=== PATIENT | female | born 1935 | race Caucasian/White ===

== ENCOUNTER 2020-03-28 12:22 | Outpatient (REF) | payer MEDICARE, OTHER, SELFPAY | END 2020-03-28 12:23 | disposition home or self-care (01) | LOC: HO.LNP 12:22 | PROVIDERS: Visit Provider Ophthalmology | DX: H10.022 Other mucopurulent conjunctivitis, left eye (principal) | CPT/HCPCS: 87071; 87205 ==

== ENCOUNTER 2020-07-09 15:05 | Outpatient (REF) | payer SELFPAY | END 2020-07-09 15:06 | disposition home or self-care (01) | LOC: HO.HAP 15:05 | PROVIDERS: Visit Provider Internal Medicine | DX: Z13.89 Encounter for screening for other disorder (principal) ==

== ENCOUNTER 2020-07-24 13:06 | Outpatient (REF) | payer SELFPAY | END 2020-07-24 13:07 | disposition home or self-care (01) | LOC: HO.HAP 13:06 | PROVIDERS: Visit Provider Nurse Practitioner Family | DX: Z13.89 Encounter for screening for other disorder (principal) ==

== ENCOUNTER 2020-11-06 11:36 | Outpatient (REF) | payer MEDICARE, OTHER, SELFPAY ==
--- NOTE | 2020-11-14 08:50 | MHC.AU.AHA ---
Adult Audiological Evaluation Date of Visit: 11/06/20 [employer] Worker Used: Not Applicable Reason for Appointment: Audiologic re-evaluation due to increased difficulties hearing and understanding speech. Overall there are no medical changes reported. There is a history of fluctuating middle ear dysfunction which may influence sound quality. Previous Hearing Test Results: 06/19/2019 [facility] Borderline normal hearing thresholds at 250 Hz dropping to a severe high frequency sensorineural hearing loss bilaterally Medical History: Medical History: High Blood Pressure, High Cholesterol Medication List: Gabapentin, Omeprazole, Atorvastatin, Aspirin, Lamotrigine, Amlodipine, Calcium, Vitamin D, PreserVision Hearing Instrument History- Right Ear: Physical Testing Supervisor: Learning Hyperdrive Model: 3 Series i70 canal Serial Number: [id number] Battery Size: 312 Repair Warranty: 06/26/2015 Loss and Damage Warranty: L+D used Dispensed By: [facility] Date of Fittin06/05/2013 Hearing Instrument History- Left Ear: Physical Testing Supervisor: Learning Hyperdrive Model: Rosy i1600 ITC Serial Number: [id number] Battery Size: 312 Warranty: 08/11/2022 Loss and Damage Warranty: 08/11/2022 Dispensed By: [facility] Date of Fittin07/14/2019 Otoscopy: Right Ear: Small amount of non-occluding cerumen Left Ear: Unremarkable Tympanometry: Tympanometry performed due to: History of middle ear dysfunction Right Ear: Non-compliant Middle Ear System (Type B) Left Ear: Non-compliant Middle Ear System (Type B) Hearing Evaluation: Transducer(s) Used: Insert Earphones Method: Conventional Audiometry Stimuli Used: Pure Tones Right Ear: Description of Hearing: Borderline normal threshold at 250 Hz dropping to a profound high frequency sensorineural hearing loss Left Ear: Description of Hearing: Borderline normal threshold at 250 Hz dropping to a profound high frequency sensorineural hearing loss Speech Recognition Threshold (SRT): Method Used: Monitored Live Voice Stimuli Used: Spondee Words Right Ear: 45 dB HL Left Ear: 40 dB HL Word Discrimination: Method: Recorded Lists Word Lists Used: NU-6 Right Ear: 80% at 85 dB HL Left Ear: 80% at 80 dB HL Comparison: Compared to most recent evaluation: Thresholds at 500-4000 Hz have decreased 5-10 dB for both ears Interpretation of Results: Elvia is likely noticing a change in her hearing ability due to the mild decrease in hearing levels for both ears and the middle ear dysfunction Recommendations: Audiological re-evaluation in one year. Will send a reminder card Hearing aid maintenance performed today. Hearing aid(s) reprogrammed with updated test results. Diagnosis: Primary Diagnosis: H90.3 Bilateral Sensorineural Hearing Loss Services Performed: Comprehensive Audiological Evaluation (CPT 75327) Tympanometry (CPT 81006) Signature: Provider: Zaheer Mercado, RAMONA-A
== END 2020-11-06 11:37 | disposition home or self-care (01) ==
LOC: HO.SH 11:36
PROVIDERS: Visit Provider Nurse Practitioner Family
DX: H91.93 Unspecified hearing loss, bilateral (principal)
CPT/HCPCS: 92557; 92567

== ENCOUNTER 2021-02-21 08:57 | Outpatient (REF) | payer SELFPAY | END 2021-02-21 08:58 | disposition home or self-care (01) | LOC: HO.HAP 08:57 | PROVIDERS: Visit Provider Internal Medicine | DX: Z13.89 Encounter for screening for other disorder (principal) ==

== ENCOUNTER 2021-03-04 13:35 | Outpatient (REF) | payer SELFPAY | END 2021-03-04 13:36 | disposition home or self-care (01) | LOC: HO.HAP 13:35 | PROVIDERS: Visit Provider Internal Medicine | DX: Z13.89 Encounter for screening for other disorder (principal) ==

== ENCOUNTER 2021-10-10 14:47 | Outpatient (REF) | payer SELFPAY | END 2021-10-10 14:48 | disposition home or self-care (01) | LOC: HO.HAP 14:47 | PROVIDERS: Visit Provider Internal Medicine | DX: Z46.1 Encounter for fitting and adjustment of hearing aid (principal); H90.3 Sensorineural hearing loss, bilateral | CPT/HCPCS: 99499 ==

== ENCOUNTER 2021-10-28 09:55 | Outpatient (REF) | payer SELFPAY | END 2021-10-28 09:56 | disposition home or self-care (01) | LOC: HO.HAP 09:55 | PROVIDERS: Visit Provider Internal Medicine | DX: Z13.89 Encounter for screening for other disorder (principal) ==

== ENCOUNTER 2021-11-26 10:12 | Outpatient (REF) | payer MEDICARE, OTHER, SELFPAY ==
--- NOTE | 2021-11-28 08:04 | MHC.AU.AHA ---
Adult Audiological Evaluation Date of Visit: 11/19/21 Reason for Appointment: Long-standing history of hearing loss. Patient arrives today to determine if there has been a change in her hearing. Medical History: Medical History: High Blood Pressure, High Cholesterol Hearing Instrument History- Right Ear: Electric Pile Driver Operator: Team Apart Model: 3 Series i70 canal Serial Number: [id number] Battery Size: 312 Repair Warranty: 06/26/2015 Loss and Damage Warranty: L+D used Dispensed By: [facility] Date of Fittin06/05/2013 Hearing Instrument History- Left Ear: Electric Pile Driver Operator: Team Apart Model: Rosy i1600 ITC Serial Number: [id number] Battery Size: 312 Warranty: 08/11/2022 Loss and Damage Warranty: 08/11/2022 Dispensed By: [facility] Date of Fittin07/14/2019 Otoscopy: Right Ear: Unremarkable Left Ear: Unremarkable Tympanometry: Tympanometry performed due to: Right Ear: Reduced Middle Ear Compliance (Type As) Left Ear: Reduced Middle Ear Compliance (Type As) Hearing Evaluation: Transducer(s) Used: Insert Earphones Method: Conventional Audiometry Stimuli Used: Pure Tones Right Ear: Description of Hearing: Mild to severe/profound sensorineural hearing loss Left Ear: Description of Hearing: Mild to severe/profound sensorineural hearing loss Speech Recognition Threshold (SRT): Method Used: Recorded Lists Stimuli Used: Spondee Words Right Ear: 55 dBHL Left Ear: 50 dBHL Word Discrimination: Method: Recorded Lists Word Lists Used: W-22 Right Ear: 64% at 80 dBHL Left Ear: 68% at 80 dBHL Most Comfortable Level (MCL): Right Ear: 80 dBHL Left Ear: 80 dBHL Aided Testing: Aided word discrimination in quiet: 96% at 50 dBHL Aided word discrimination in noise: 88% at 50 dBHL Comparison: Compared to the most recent evaluation: Hearing is stable. Recommendations: Audiological re-evaluation in one year. No hearing aid programming changes made today, as hearing is stable and patient is comfortable with how they currently sound. Diagnosis: Primary Diagnosis: H93.293 Abnormal Auditory Perception Signature: Provider: Zaheer Maurer, CCC-A
== END 2021-11-26 10:13 | disposition home or self-care (01) ==
LOC: HO.SH 10:12
PROVIDERS: Visit Provider Internal Medicine
DX: Z01.118 Encounter for examination of ears and hearing with other abnormal findings (principal); H90.3 Sensorineural hearing loss, bilateral
CPT/HCPCS: 92557; 92567

== ENCOUNTER 2023-08-12 08:25 | Outpatient (REF) | payer MEDICARE, OTHER, SELFPAY | END 2023-08-12 08:26 | disposition home or self-care (01) | LOC: HO.SH 08:25 | PROVIDERS: PCP Internal Medicine; Visit Provider Internal Medicine | DX: Z01.10 Encounter for examination of ears and hearing without abnormal findings (principal); H90.3 Sensorineural hearing loss, bilateral | CPT/HCPCS: 92552; 92556 ==

== ENCOUNTER 2023-12-27 06:36 | Inpatient (IN) | payer MEDICARE, OTHER, SELFPAY ==
[2023-12-27] VITALS (17 sets, daily range): BP systolic 98–153; BP diastolic 47–83; PULSE 72–125; RESP 14–36; TEMP 36.2–38; O2SAT 60–98; BMI 31.8; BMI 32.3
--- NOTE | ~2023-12-27 | XR_ITS ---
EXAMINATION: XR CHEST CLINICAL INFORMATION: Shortness of breath COMPARISON: None available. TECHNIQUE: Frontal view of the chest was obtained. FINDINGS: There is mild cardiac. There is mild pulmonary vascular congestion. There is increased interstitial markings more prominent at the lung bases. Small pleural effusions are seen. Right basilar atelectasis is present. More confluent density seen in the retrocardiac region which may be secondary to infiltrate/atelectasis plus pleural fluid. Degenerative changes are noted in the spine. A suture anchors present in the left humeral head. XR/XR chest 1V IMPRESSION: Cardiomegaly with pulmonary vascular congestion and small pleural effusions. Findings are suggestive of CHF.
--- NOTE | ~2023-12-27 | CT_ITS ---
EXAMINATION: CT ANGIOGRAM OF THE CHEST WITH AND WITHOUT CONTRAST (CT PULMONARY ANGIOGRAM FOR PE) CLINICAL INFORMATION: Reason for Exam chest pain, hypoxia, positive d-dimer COMPARISON: None available. TECHNIQUE: Prior to contrast administration, noncontrast localization images were obtained. Subsequently, multidetector volumetric imaging was performed from the thoracic inlet to below the diaphragms following the administration of 65 mL Omnipaque 350 intravenous contrast. No contrast reaction reported Sagittal, coronal, and MIP oblique sagittal reformatted images were obtained on the CT workstation, uploaded to PACS, and reviewed. This CT examination was performed using dose optimization techniques as appropriate, variously including the following: *Automated exposure control *Adjustment of mA and/or kV according to patient size (this includes techniques or standardized protocols for targeted exams where dose is matched to indication/reason for exam; i.e. extremities or head) *Use of iterative reconstruction technique DLP: 461.25 mGy-cm FINDINGS: PULMONARY ARTERIES: The main pulmonary arteries, lobar and segmental arterial branches show adequate enhancement without filling defects. Main pulmonary trunk measures 315 Hounsfield units in mean attenuation. There is marked dilatation of the main pulmonary trunk, measuring 3.3 cm in transverse diameter, compatible with pulmonary arterial hypertension. LUNGS: Scattered extensive groundglass opacities are seen in bilateral lungs. There is almost complete consolidation of bilateral lower lobes with air bronchograms. PLEURA: Bilateral moderate pleural effusions are present. No pneumothorax is seen. PERICARDIUM: No pericardial effusion is seen. MEDIASTINUM AND KUN: No abnormally enlarged mediastinal or hilar lymph nodes are seen. TRACHEOBRONCHIAL TREE: Trachea and bilateral mainstem bronchi are patent. THORACIC AORTA: The thoracic aorta is normal in size with scattered atherosclerotic calcifications and smoothly patent. CORONARY ARTERY CALCIFICATIONS: Present CHEST WALL AND LOWER NECK: The subcutaneous and muscular chest wall are intact with no focal lesion. No abnormal mass lesion could be seen in the visualized lower neck. BONES: No fracture or dislocation. No focal bone lesion diagnostic of metastatic disease could be seen in the thorax. VISUALIZED UPPER ABDOMEN: Bilateral adrenal glands are not enlarged. Surgical clips are seen in the gallbladder fossa. Atherosclerotic calcifications are seen in proximal bilateral renal arteries, causing significant stenosis at the origin of left renal artery. CT/CT angio chest PE protocol IMPRESSION: 1. No evidence of pulmonary embolism. 2. Marked dilatation of the main pulmonary trunk, compatible with pulmonary arterial hypertension. 3. Scattered extensive groundglass opacities in bilateral lungs, compatible with interstitial pulmonary edema due to congestive heart failure. 4. Almost complete consolidation of bilateral lower lobes with air bronchograms and Bilateral moderate pleural effusions, compatible with pneumonia. 5. Status post cholecystectomy. 6. Atherosclerotic calcifications in proximal bilateral renal arteries, causing significant stenosis at the origin of left renal artery. Fleischner guidelines were followed. VTE: negative
--- OUTSIDE RECORDS SUMMARY | 2023-12-27 06:44 | XMS_ITS | Continuity of Care Document ---
Author Organization [facility] Address [address] [place] [address]- Care Team Providers Care Data Steward Name Role Phone Janna Sibley MD Primary Care Physician [place] [facility] [place] 10/26/[address] [address]- Encounter Diagnosis Bruising(Discharge Diagnosis) - 10/19/23 Hypertension(Discharge Diagnosis) - 10/19/23 Hypercholesterolemia(Discharge Diagnosis) - 10/19/23 MCI (mild cognitive impairment)(Discharge Diagnosis) - 10/19/23 Asthma(Discharge Diagnosis) - 10/19/23 Attending Physician: Janna Sibley MD Allergies, Adverse Reactions, Alerts Substance Reaction Severity Status imipramine Active hydrOXYzine Itching Active Immunizations Given and Recorded Vaccine Date Status Refusal Reason influenza virus vaccine, inactivated 03/12/22 Marty rded influenza virus vaccine, inactivated 03/28/21 Marty rded influenza virus vaccine, inactivated 02/20/20 Marty rded influenza virus vaccine, inactivated 05/02/19 Marty rded influenza virus vaccine, inactivated 1 04/07/18 Gi henri influenza virus vaccine, inactivated 2 04/01/17 Gi henri influenza virus vaccine, inactivated 3 05/15/16 Gi henri influenza virus vaccine, inactivated 4 06/04/15 Re corded influenza virus vaccine, inactivated 05/23/15 Marty rded influenza virus vaccine, inactivated 04/02/14 Marty rded influenza virus vaccine, inactivated 03/14/13 Give n influenza virus vaccine, inactivated 05/04/12 Marty rded influenza virus vaccine, inactivated 04/03/11 Marty rded influenza virus vaccine, inactivated 05/02/10 Give n influenza virus vaccine, inactivated 5 04/26/09 Gi henri [id number] 12y+ bivalent booster vax 03/12/22 Recorded SARS-CoV-2 mRNA ([id number]) vax 10/17/21 Recorded SARS-CoV-2 (COVID-19) mRNA BNT-162b2 vac 03/28/21 Recorded SARS-CoV-2 (COVID-19) mRNA BNT-162b2 vac 08/15/20 Given pneumococcal 23-valent vaccine 09/24/16 Given pneumococcal 23-valent vaccine 6 10/24/04 Given pneumococcal 13-valent vaccine 07/10/15 Given Zoster Vaccine Live 7 09/13/08 Given diphtheria-tetanus toxoids (DT) 10/29/03 Given 1Admin Note: [facility] high dose 2Admin Note: [facility] [place] 3Admin Note: Joseph Rivera [facility] pallavi mt 4Result Comment: [07/10/2015] joseph rivera 5Admin Note: Pallavi 6Admin Note: Pallavi 7Admin Note: diluent lot [id number] Exp 08/28 Medications Aerochamber See Instructions, # 1 each, Refills 1, Tot. Refills 1, Maintenance, Urgent Use with metered dose inhaler., 10/13/23 13:22:00 EDT, Supply, 160, cm, 10/13/23 12:55:00 EDT, Height, 75.9, kg, 06/15/23 11:38:00 EST, Dry Weight Start Date: 10/13/23 Status: Ordered albuterol CFC free 90 mcg/inh inhalation aerosol 2, puffs, Inhalation, 4 times a day, PRN, Urgent use with spacer chamber, # 18 Gm, Refills 3, Tot. Refills 3, Maintenance, 10/13/23 13:21:00 EDT, Aerosol, Route to Pharmacy Electronically, [id number], [facility]... Start Date: 10/13/23 Stop Date: 10/07/24 Status: Ordered amLODIPine 10 mg oral tablet 1 tablet, By Mouth, Daily, # 90 tablet, 3 Refills, Maintenance, 11/17/22 12:13:00 EDT, [facility], 159, cm, 11/03/22 13:00:00 EDT, Height, 81, kg, 12/10/21 9:01:00 EDT, Dry Weight Start Date: 11/17/22 Status: Ordered atorvastatin 40 mg oral tablet 1 tablet = 40 mg, By Mouth, Daily, # 90 tablet, 3 Refills, Maintenance, 01/15/22 16:23:00 EDT, Tablet, [facility], Partial fill upon patient request if the prescription is for a schedule II opioid drug., 159, cm, 12/10/21 9:01:00 ED... Start Date: 01/15/22 Stop Date: 01/10/23 Status: Ordered calcium and vitamin D combination 315 mg-200 iu oral tablet 1 tablet, By Mouth, 2 times a day, # 120 tablet, 0 Refills, Maintenance, 04/15/20 10:06:00 EDT, Tablet Start Date: 04/15/20 Status: Ordered chlorthalidone 25 mg oral tablet 12.5 mg, 0.5, tablet, By Mouth, Daily, # 45 tablet, Refills 3, Tot. Refills 3, Maintenance, 12/25/22 12:50:00 EDT, Route to Pharmacy Electronically, [facility], Partial fill upon patient request if the prescription is for a schedule... Start Date: 12/25/22 Stop Date: 12/20/23 Status: Ordered CPAP Equipment Maintenance, 04/15/20 10:10:00 EDT, Supply Start Date: 04/15/20 Status: Ordered fluticasone-salmeterol 250 mcg-50 mcg inhalation powder 1, puffs, Inhalation, 2 times a day, Urgent rinse mouth and throat after use, # 3 each, Refills 3, Tot. Refills 3, Maintenance, 10/13/23 13:21:00 EDT, Powder, Route to Pharmacy Electronically, [id number], [facility]... Start Date: 10/13/23 Stop Date: 10/07/24 Status: Ordered gabapentin 300 mg oral capsule 300 mg, 1, capsule, By Mouth, 3 times a day, # 270 capsule, Refills 3, Tot. Refills 3, Maintenance,09/17/23 11:11:00 EDT, Route to Pharmacy Electronically, [facility], Partial fill upon patient request if the prescription is for a... Start Date: 09/17/23 Status: Ordered Gemtesa 75 mg oral tablet 1 tablet = 75 mg, By Mouth, Daily, 0 Refills, Maintenance, 08/25/23 15:13:00 EST, Partial fill uponpatient request if the prescription is for a schedule II opioid drug. Start Date: 08/25/23 Status: Ordered Home Blood Pressure Monitor See Instructions, # 1 each, Refills 0, Tot. Refills 0, Maintenance, Please take blood pressure and heart rate at least once daily. ICD-10 Code: I10 (HTN), 01/20/23 10:01:00 EDT, Supply Start Date: 01/20/23 Status: Ordered lamotrigine 100 mg oral tablet 1, tablet, By Mouth, 2 times a day, # 180 tablet, Refills 2, Tot. Refills 2, Maintenance, 02/12/23 13:08:00 EDT, Route to Pharmacy Electronically, [facility], 159, cm, 01/20/23 8:23:00 EDT, Height, 81, kg, 12/10/21 9:01:00 EDT, Dry... Start Date: 02/12/23 Status: Ordered lamotrigine 25 mg oral tablet 50 mg, 2, tablet, By Mouth, 2 times a day, dose increase, # 360 tablet, Refills 2, Tot. Refills 2, Maintenance, 02/12/23 13:09:00 EDT, Route to Pharmacy Electronically, [facility],Partial fill upon patient request if the prescripti... Start Date: 02/12/23 Status: Ordered lisinopril 10 mg oral tablet See Instructions, TAKE 1 TABLET DAILY, # 30 tablet, Refills 11, Maintenance, 05/17/23 8:21:00 EST, Instructions Replace Required Details, Route to Pharmacy Electronically, [facility], 159, cm, 03/11/23 9:45:00 EDT, Height, 81, kg, 0... Start Date: 05/17/23 Status: Ordered Nitrostat 0.3 mg sublingual tablet 1 tablet = 0.3 mg, Sublingual, Every 5 minutes, PRN as needed for chest pain, not to exceed 3 doses/15 min--if pain persists, seek medical attention, # 25 tablet, 0 Refills, Maintenance, 06/16/23 10:10:00 EST, Tablet, [id number], Part... Start Date: 06/16/23 Status: Ordered omeprazole 20 mg oral delayed release tablet 1 tablet = 20 mg, By Mouth, 2 times a day, # 180 tablet, 1 Refills, Maintenance, 07/20/23 13:18:00 EST, EC Tablet, [facility], Partial fill upon patient request if the prescriptionis for a schedule II opioid drug., 160, cm, ... Start Date: 07/20/23 Stop Date: 01/16/24 Status: Ordered PreserVision AREDS 2 oral capsule By Mouth, Daily, 0 Refills, Maintenance, 04/15/20 10:06:00 EDT Start Date: 04/15/20 Status: Ordered Problem List Condition Confirmation Course Effective Dates Status Health Status Informant Anxiety disorder Confirmed Active Bilateral hearing loss Confirmed 06/01/13 Active Macular degeneration of left eye Confirmed Active Other specified depressive episodes Confirmed Active Diastolic dysfunction Confirmed Active Fatigue Confirmed Active Fibromyalgia Confirmed Active Functional heart murmur Confirmed 04/24/19 Active Gastroesophageal reflux disease with hiatal hernia Confirmed Active H/O Malignant melanoma Confirmed 2013 Active Hypercholesterolemia Confirmed Active Hypertension Confirmed Active MCI (mild cognitive impairment) Confirmed Active Obese class I Confirmed Active Obstructive sleep apnea Confirmed Active Osteopenia Confirmed Active Chronic polyneuropathy Confirmed Active 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 Lumbar spinal stenosis Confirmed Active Urge urinary incontinence Confirmed Active Diagnosis Diagnosis Type Effective Dates Health Status Clinical Service Informant Bruising Discharge Diagnosis 10/19/23 Hypertension Discharge Diagnosis 10/19/23 Hypercholesterolemia Discharge Diagnosis 10/19/23 MCI (mild cognitive impairment) Discharge Diagnosis 10/19/23 Asthma Discharge Diagnosis 10/19/23 Vital Signs Most recent to oldest [Reference Range]: 1 Height 160 cm (10/19/23 1:46 PM) Weight 77 kg (10/19/23 1:46 PM) Oxygen Saturation [94-100 %] 97 % (10/19/23 1:46 PM) Pulse Rate [55-90 bpm] 88 bpm (10/19/23 1:46 PM) Body Mass Index [18.5-24.99 kg/m2] 30.08 kg/m2 *>HHI* (10/19/23 1:46 PM) Blood Pressure [90-138/55-84 mm Hg] 109/ 69mm Hg (10/19/23 1:46 PM) Respiratory Rate [16-30 br/min] 17 br/mi n (10/19/23 1:46 PM) Temperature [96.8-100.4 DegF] 97.7 DegF (10/19/23 1:46 PM) Mode of Delivery (Oxygen) Room air (10/19/23 1:46 PM) Blood pressure sites Arm, right (10/19/23 1:46 PM) Temperature Route Temporal (10/19/23 1:46 PM) Weight Obtained Via Standing scale (10/19/23 1:46 PM) Social History Social History Type Response Smoking Status Never smoker entered on: 05/23/14 Sex Female Note * Anastasiia Alberts: PERFORM, SIGN, VERIFY Event Display: Patient Education/Instruction Authored Date: [id number] [facility] *[facility] Clinical Summary Name MILLER MURPHY Age 88 Years 1935 PCP Janna Sibley MD PCP Visit Date 10/19/2023 13:38:00 Additional Instructions: Scheduled Appointments?? Future Appointments ?*[facility] ?[address],??[place],??[address] ?Phone:??[phone]?Fax:??-- ?Appt. Date:??12/01/2023?10:10 AM ?Scheduled Provider:??Janna Siblye MD ?*[facility] ?[address] ?[place],??[place],??[address] ?Phone:??[phone]?Fax:??-- ?Appt. Date:??12/10/2023?3:30 PM ?Scheduled Provider:??Connie LANDIN, Elizabeth Patton Follow-Up Instructions ?? Diagnosis Mild cognitive impairment of uncertain or unknown etiology; Other ill-defined heart diseases; Essential (primary) hypertension; Other injury of unspecified body region, initial encounter; Pure hypercholesterolemia, unspecified Medications: Please continue your medications until treatment is completed or stopped by your provider. Discuss any questions related to medications with your provider. Medications to Continue Taking That Have Changed These medications were not printed or sent to your pharmacy - Gabapentin (gabapentin 300 mg oral capsule) 1 capsule Oral 3 times a day. Refills: 3. Next Dose: Medications to Continue with No Changes These medications were not printed or sent to your pharmacy Albuterol (albuterol CFC free 90 mcg/inh inhalation aerosol) 2 puff(s) Inhalation 4 times a day as needed Wheezing/Shortness of Breath for 90 Days. Urgent use with spacer chamber. Refills: 3. Next Dose: Amlodipine (amLODIPine 10 mg oral tablet) 1 tab(s) Oral Daily. Refills: 3. Next Dose: Atorvastatin (atorvastatin 40 mg oral tablet) 1 tab(s) Oral Daily for 90 Days. Refills: 3. Next Dose: Calcium And Vitamin D Combination (calcium and vitamin D combination 315 mg-200 iu oral tablet) 1 tab(s) Oral twice a day. Next Dose: Chlorthalidone (chlorthalidone 25 mg oral tablet) 0.5 tab(s) Oral Daily for 90 Days. Refills: 3. Next Dose: Durable Medical Equipment (Aerochamber) Urgent Use with metered dose inhaler.. Refills: 1. Next Dose: Durable Medical Equipment (CPAP Equipment) Next Dose: Durable Medical Equipment (Home Blood Pressure Monitor) Please take blood pressure and heart rate at least once daily. ICD-10 Code: I10 (HTN). Refills: 0. Next Dose: Fluticasone-Salmeterol (fluticasone-salmeterol 250 mcg-50 mcg inhalation powder) 1 puff(s) Inhalation twice a day for 90 Days. Urgent rinse mouth and throat after use. Refills: 3. Next Dose: Lamotrigine (lamotrigine 100 mg oral tablet) 1 tab(s) Oral twice a day. Refills: 2. Next Dose: Lamotrigine (lamotrigine 25 mg oral tablet) 2 tab(s) Oral twice a day. dose increase. Refills: 2. Next Dose: Lisinopril (lisinopril 10 mg oral tablet) TAKE 1 TABLET DAILY. Refills: 11. Next Dose: Multivitamin With Minerals (PreserVision AREDS 2 oral capsule) Oral Daily. Next Dose: Nitroglycerin (Nitrostat 0.3 mg sublingual tablet) 1 tab(s) Sublingual every 5 minutes as needed asneeded for chest pain. not to exceed 3 doses/15 min--if pain persists, seek medical attention. Refills: 0. Next Dose: Omeprazole (omeprazole 20 mg oral delayed release tablet) 1 tab(s) Oral twice a day for 90 Days. Refills: 1. Next Dose: vibegron (Gemtesa 75 mg oral tablet) 1 tab(s) Oral Daily. Next Dose: No Longer Take the Following Medications Clobetasol Topical (clobetasol 0.05% topical ointment) 1 application Topically nightly for 3 monthsand then 1 - 3x per week for maintenance.. Refills: 1. Estradiol Topical (estradiol 0.1 mg/g vaginal cream) INSERT 1 GRAM VAGINALLY AT BEDTIME TWICE PER WEEK. Refills: 2. Allergy Info:?? hydrOXYzine; imipramine Medications Given This Visit Future Orders ?No future orders Future Orders ?CBC w/ Differential? Order Date:10/19/23?- Complete within?Hepatic Function Panel? Order Date:10/19/23?- Complete within?TSH with T4 Reflex (Adults Only)? Order Date:10/19/23?- Complete within?Basic Metabolic Panel? Order Date:10/19/23?- Complete within?Lipid Panel Non Fasting? Order Date:10/19/23?- Complete within?Complete Urinalysis? Order Date:10/19/23?- Complete within?INR? Order Date:10/19/23?- Complete within?PTT? Order Date:10/19/23?- Complete within? Vital Signs Height 160 cm Weight 77 kg BMI 30.08 kg/m2 Blood Pressure 109 mm Hg/69 mm Hg Temperature 97.7 DegF Pulse Rate 88 bpm Respiratory Rate 17 br/min 02 Sat Mode of Delivery 97 %/Room air You can now view a summary of your hospital visit from the comfort of your home through a free online portal called [employer]. [employer] is a website that allows you to securely view your medical information including discharge summary, medications and follow-up visits. ??You can alsosend a secure electronic message to your doctor???s office to request appointments, renew medications or just ask a question. You can enroll at [email or web address] or register during your next office visit. Disclaimer:?? The information provided is of a general nature and is intended to be used in conjunction with the recommendations and advice of your health care practitioner. ??Every effort has been made to ensure that the information provided is accurate and complete at the time it is provided to you however, as your needs change, or, as new ??information becomes available, different or additional instructions may be required. If you have questions, please consult with your primary care provider or pharmacist, as appropriate. ??This information is not intended to serve as substitution for assessment and evaluation by a qualified health care provider. If you do not have a primary care provider, you may find a [facility] provider by calling [facility] [employer] [facility] at [phone]. [facility], in keeping with [facility] guidance, no longer requires face masks for staff, patientsor visitors in most situations. Similar to time spent indoors at other locations, there is the chance that you were exposed to respiratory viruses during your time with us (such as flu or COVID-19).? If you develop symptoms concerning for a viral respiratory infection, please seek testing (and treatment if indicated) from your medical provider or home test kit. For information about the plan of care including goals and instructions for your diagnosis, please see the patient education orders section of this document. Patient Education Materials?? The content of this educational material or handout may have been modified, supplemented, or adapted from its original content and format to support your individualized medical care. Patient Care team information Care Team Personnel Name: Saadia Abdalla Position: [facility] Onco RN Member Role: Primary Care Nurse Name: Janna iSbley MD Position: [facility] Physician - Primary Care Member Role: PCP Address: Address: [address] [place] [id number] [place] Name: Aislinn Mccauley RN Position: [facility] RN Member Role: Primary Care Nurse Care Team Related Persons Name: AMIRA MURPHY Address: [address] [id number] Name: AMIRA MURPHY Address: [address] Address: [facility] Name: AMIRA MURPHY Address: [address] Name: TITO MURPHY Address: [address] [address] [place] Name: TITO MURPHY Address: [address] Name: TITO MURPHY Address: [address] [address]
--- OUTSIDE RECORDS SUMMARY | 2023-12-27 06:44 | XMS_ITS | Continuity of Care Document ---
Author Organization [facility] Address [address], [address] Floor, [address] [place] [address]- Care Team Providers Care American Sign Language Interpreter Name Role Phone Colt LANDIN, Jud Guzman Primary Care Physicia n [place] [facility] [place]/20 [facility] [address], [address]rd Floor, [address] [place] [address]- Attending Physician: Freddie Mcgrath Admitting Physician: AdmtrFreddie Referring Physician: AdmtrFreddie Allergies, Adverse Reactions, Alerts Substance Reaction Severity Status imipramine Active hydrOXYzine Itching Active Immunizations Given and Recorded Vaccine Date Status Refusal Reason influenza virus vaccine, inactivated 05/02/19 Marty rded influenza virus vaccine, inactivated 1 04/07/18 Gi henri influenza virus vaccine, inactivated 2 04/01/17 Gi henri influenza virus vaccine, inactivated 3 05/15/16 Gi henri influenza virus vaccine, inactivated 4 06/04/15 Re corded influenza virus vaccine, inactivated 03/14/13 Give n influenza virus vaccine, inactivated 05/02/10 Give n influenza virus vaccine, inactivated 5 04/26/09 Gi henri pneumococcal 23-valent vaccine 09/24/16 Given pneumococcal 23-valent vaccine 6 10/24/04 Given pneumococcal 13-valent vaccine 07/10/15 Given Zoster Vaccine Live 7 09/13/08 Given diphtheria-tetanus toxoids (DT) 10/29/03 Given 1Admin Note: [facility] 2Admin Note: Joseph Phelan MA 3Admin Note: Joseph [facility] 4Result Comment: [07/10/2015] joseph rivera 5Admin Note: T[place] 6Admin Note: Tapan 7Admin Note: diluent lot [id number] Exp 08/28 Medications amLODIPine 5 mg oral tablet 5 mg, 1, tablet, By Mouth, Daily, # 30 tablet, Refills 0, Maintenance, 04/15/20 10:05:00 EDT Start Date: 04/15/20 Status: Ordered aspirin 81 mg oral delayed release tablet 81 mg, 1, tablet, By Mouth, Daily, # 30 tablet, Refills 0, Maintenance, 04/15/20 10:03:00 EDT Start Date: 04/15/20 Status: Ordered atorvastatin 40 mg oral tablet 1 tablet = 40 mg, By Mouth, Daily, # 30 tablet, 0 Refills, Maintenance, 04/15/20 10:02:00 EDT, Tablet Start Date: 04/15/20 Status: Ordered calcium and vitamin D combination 315 mg-200 iu oral tablet 1 tablet, By Mouth, 2 times a day, # 120 tablet, 0 Refills, Maintenance, 04/15/20 10:06:00 EDT, Tablet Start Date: 04/15/20 Status: Ordered CPAP Equipment Maintenance, 04/15/20 10:10:00 EDT, Supply Start Date: 04/15/20 Status: Ordered gabapentin 300 mg oral capsule 300 mg, 1, capsule, By Mouth, 3 times a day, # 90 capsule, Refills 0, Maintenance, 04/15/20 10:05:00 EDT Start Date: 04/15/20 Status: Ordered gabapentin 300 mg oral capsule 300 mg, 1, capsule, By Mouth, 3 times a day, # 270 capsule, Refills 0, Tot. Refills 0, Maintenance,05/14/20 13:01:00 EST, Route to Pharmacy Electronically, [facility], Partial fill upon patient request, 160, cm, 04/15/20 9:50:00 ED... Start Date: 05/14/20 Status: Ordered lamotrigine 100 mg oral tablet 100 mg, 1, tablet, By Mouth, 2 times a day, Take with 25mg tablet for total 125mg twice daily, # 180 tablet, Refills 0, Tot. Refills 0, Maintenance, 05/14/20 13:01:00 EST, Route to Pharmacy Electronically, [facility], Partial fill u... Start Date: 05/14/20 Status: Ordered omeprazole 20 mg oral delayed release tablet 1 tablet = 20 mg, By Mouth, 2 times a day, # 60 tablet, 0 Refills, Maintenance, 04/15/20 10:05:00 EDT, EC Tablet Start Date: 04/15/20 Status: Ordered PreserVision AREDS 2 oral capsule By Mouth, Daily, 0 Refills, Maintenance, 04/15/20 10:06:00 EDT Start Date: 04/15/20 Status: Ordered Problem List Condition Effective Dates Status Health Status Inform ant Anxiety disorder(Confirmed) Active Bilateral hearing loss(Confirmed) 06/01/13 Active Macular degeneration of left eye(Confirmed) Active Fibromyalgia(Confirmed) Active Functional heart murmur(Confirmed) 04/24/19 Active Gastroesophageal reflux dise ase with hiatal hernia(Confirmed) Active Hypercholesterolemia(Confirmed) Active Hypertension(Confirmed) Active Malignant melanoma(Confirmed) Active MCI (mild cognitive impairment)(Confirmed) Active Obstructive sleep apnea(Confirmed) Active Osteopenia(Confirmed) Active Chronic polyneuropathy(Confirmed) Active Lumbar spinal stenosis(Confirmed) Active Subarachnoid hemorrhage foll owing injury without open intracranial wound AND with no loss of consciousness(Confirmed) Active Urge urinary incontinence(Confirmed) Active Social History Social History Type Response Smoking Status Never smoker entered on: 05/23/14 Sex Female
--- OUTSIDE RECORDS SUMMARY | 2023-12-27 06:44 | XMS_ITS | Continuity of Care Document ---
Author Organization [facility] Address [address] [place] [address]- Care Team Providers Care Coin Machine Service Repairer Name Role Phone Colt LANDIN, Jud Guzman Primary Care Physicia n [place] [facility] [place] 06/04/20 - 07/04/20 [facility] [address] [place] [id number] Attending Physician: Freddie Mcgrath Admitting Physician: Freddie Mcgrath Referring Physician: AdmtrFreddie Allergies, Adverse Reactions, Alerts [...] Joseph Phelan MA 3Admin Note: Joseph Rivera [facility] 4Result Comment: [07/10/2015] joseph rivera 5Admin Note: [...] Maintenance,05/14/20 13:01:00 EST, Route to Pharmacy Electronically, [facility], Partial fill upon patient request, 160, cm, 04/15/20 9:50:00 ED... Start Date: 05/14/20 Status: Ordered lamotrigine 100 mg oral tablet 100 mg, 1, tablet, By Mouth, 2 times a day, Take with 25mg tablet for total 125mg twice daily, # 180 tablet, Refills 0, Tot. Refills 0, Maintenance, 05/14/20 13:01:00 EST, Route to Pharmacy Electronically, [facility], Partial fill u... Start Date: [...]
--- OUTSIDE RECORDS SUMMARY | 2023-12-27 06:44 | XMS_ITS | Continuity of Care Document ---
Author Organization [facility] Address [address] [place] [address]- Care Team Providers Care Vision Specialist Name Role Phone Colt LANDIN, Jud Guzman Primary Care Physicia [place] [facility] [place] - 05/23/[place] [facility] [address] [address]- Attending Physician: AdmAjay [email or web address] Admitting Physician: Admtr, Ar8 Referring Physician: Admtr, Ar8 Allergies, Adverse Reactions, Alerts Substance Reaction Severity Status imipramine Active hydrOXYzine Itching Active Immunizations Given and Recorded Vaccine Date Status Refusal Reason influenza virus vaccine, inactivated 03/28/21 Marty rded [...] virus vaccine, inactivated 5 04/26/09 Gi henri SARS-CoV-2 (COVID-19) mRNA BNT-162b2 vac 03/28/21 Recorded pneumococcal 23-valent vaccine 09/24/16 Given pneumococcal 23-valent vaccine 6 10/24/04 Given pneumococcal 13-valent vaccine 07/10/15 Given Zoster Vaccine Live 7 09/13/08 Given diphtheria-tetanus toxoids (DT) 10/29/03 Given 1[facility] Note: [facility] 2Admin Note: Joseph Phelan MA 3Admin Note: Joseph Rivera [facility] pallavi ferrell 4Result Comment: [07/10/2015] zachcece rivera 5Admin Note: Pallavi 6Admin Note: Pallavi 7Admin Note: diluent lot [id number] Exp 08/28 Medications amLODIPine 10 mg oral tablet 1 tablet = 10 mg, By Mouth, Daily, # 90 tablet, 1 Refills, Maintenance, 03/26/21 10:14:00 EDT, Tablet, [facility], Partial fill upon patient request if the prescription is for a schedule II opioid drug., 159, cm, 03/26/21 9:50:00 ED... Start Date: 03/26/21 Status: Ordered aspirin 81 mg oral delayed [...] times a day, # 270 capsule, Refills 2, Tot. Refills 2, Maintenance,05/06/21 16:15:00 EST, Route to Pharmacy Electronically, [facility], Partial fill upon patient request, 159, cm, 04/21/21 16:52:00 E... Start Date: 05/06/21 Status: Ordered lamotrigine 100 mg oral tablet 1, tablet, By Mouth, 2 times a day, # 180 tablet, Refills 3, Tot. Refills 0, Maintenance, 09/20/20 21:10:00 EDT, Route to Pharmacy Electronically, [facility], 159, cm, 09/20/20 15:11:00 EDT, Height, 83, kg, 09/04/20 14:05:00 EDT, Start Date: 09/20/20 Status: Ordered lamotrigine 25 mg oral tablet 25 mg, 1, tablet, By Mouth, 2 times a day, # 180 tablet, Refills 3, Tot. Refills 3, Maintenance, 09/20/20 15:46:00 EDT, Route to Pharmacy Electronically, [facility], Partial fill upon patient request if the prescription is for a mariana... Start Date: 09/20/20 Status: Ordered omeprazole 20 mg oral delayed release tablet 1 tablet = 20 mg, By Mouth, 2 times a day, # 180 tablet, 0 Refills, Maintenance, 03/24/21 10:06:00 EDT, EC Tablet, [facility], Partial fill upon patient request if the prescriptionis for a schedule II opioid drug., 159, cm, ... Start Date: 03/24/21 Stop Date: 06/22/21 Status: Ordered PreserVision AREDS 2 oral capsule [...]
--- OUTSIDE RECORDS SUMMARY | 2023-12-27 06:44 | XMS_ITS | Continuity of Care Document ---
Author Organization [facility] Address [address], [address] Floor, [address] [place] [address]- Care Team Providers Care Cigar Bander Hand Name Role Phone Toñito COLE, [facility] Primary Care Physician [place] [facility] [place] 08/14/23 [facility] [address], [address], [address] [place] [address]- Allergies, Adverse Reactions, Alerts Substance Reaction Severity [...] virus vaccine, inactivated 5 04/26/09 Gi henri [id number] 12y+ bivalent booster vax 03/12/22 Recorded SARS-CoV-2 mRNA ([id number]) vax 10/17/21 Recorded SARS-CoV-2 (COVID-19) mRNA BNT-162b2 vac 03/28/21 Recorded SARS-CoV-2 (COVID-19) mRNA BNT-162b2 vac 08/15/20 Given pneumococcal 23-valent vaccine 09/24/16 Given pneumococcal 23-valent vaccine 6 10/24/04 Given pneumococcal 13-valent vaccine 07/10/15 Given Zoster Vaccine Live 7 09/13/08 Given diphtheria-tetanus toxoids (DT) 10/29/03 Given 1Admin Note: [facility] 2Admin Note: [facility] Pallavi [place] 3Admin Note: [facility] pallavi [place] 4Result Comment: [07/10/2015] chelo rivera 5Admin Note: Pallavi 6Admin Note: Pallavi 7Admin Note: diluent lot [id number] Exp 08/28 Medications amLODIPine 10 mg oral tablet 1 tablet, [...] Refills, Maintenance, 01/15/22 16:23:00 EDT, Tablet, [facility], Partial fill upon patient request [...] Date: 12/25/22 Stop Date: 12/20/23 Status: Ordered clobetasol 0.05% topical ointment See Instructions, 1 application Topically nightly for 3 months and then 1 - 3x per week for maintenance., # 30 Gm, 1 Refills, Maintenance, 08/27/21 9:36:00 EST, Ointment, [facility], Partial fill upon patient request if the prescrip... Start Date: 08/27/21 Status: Ordered CPAP Equipment Maintenance, 04/15/20 10:10:00 EDT, Supply Start Date: 04/15/20 Status: Ordered estradiol 0.1 mg/g vaginal cream See Instructions, INSERT 1 GRAM VAGINALLY AT BEDTIME TWICE PER WEEK, # 42.5 Gm, 2 Refills, Maintenance, 05/06/22 9:24:00 EST, [facility], 159, cm, 04/28/22 15:47:00 EST, Height, 81, kg, 12/10/21 9:01:00 EDT, Dry Weight Start Date: 05/06/22 Status: Ordered gabapentin 300 mg oral capsule 300 mg, 1, capsule, By Mouth, 3 times a day, # 270 capsule, Refills 3, Tot. Refills 3, Maintenance,11/17/22 8:37:00 EDT, Route to Pharmacy Electronically, [id number], Partial fill upon patient request if the prescription is for a mariana... Start Date: 11/17/22 Status: Ordered Home Blood Pressure Monitor See [...] 13:08:00 EDT, Route to Pharmacy Electronically, [facility], 159, cm, 01/20/23 8:23:00 EDT, [...] Required Details, Route to Pharmacy Electronically, [facility], 159, cm, 03/11/23 9:45:00 EDT, Height, 81, kg, 0... Start Date: 05/17/23 Status: Ordered Nitrostat 0.3 mg sublingual tablet 1 tablet = 0.3 mg, Sublingual, Every 5 minutes, PRN as needed for chest pain, not to exceed 3 doses/15 min--if pain persists, seek medical attention, # 25 tablet, 0 Refills, Maintenance, 06/16/23 10:10:00 EST, Tablet, [facility][id number], Part... Start Date: 06/16/23 Status: Ordered omeprazole 20 mg oral delayed release tablet 1 tablet = 20 mg, By Mouth, 2 times a day, # 180 tablet, 1 Refills, Maintenance, 07/20/23 13:18:00 EST, EC Tablet, [facility], Partial fill upon patient request [...] Confirmed Active Urge urinary incontinence Confirmed Active Social History Social History Type Response Smoking Status Never smoker entered on: 05/23/14 Sex Female Patient Care team information Care Team Personnel Name: Saadia Abdalla Position: [facility] Onco RN Member Role: Primary Care Nurse Name: Janna Sibley MD Position: [facility] Physician - Primary Care Member Role: PCP Address: Address: [address] [place] [address] [address] [place], [place] [address] Name: Aislinn Mccauley RN Position: [facility] RN Member Role: Primary Care Nurse Care Team Related Persons Name: AMIRA MURPHY Address: home [address] [place] [address] Name: AMIRA MURPHY Address: home [address] [place] [address] [place] Address: temporary 0 Name: AMIRA MURPHY Address: home [address] [facility] [address] Name: TITO MURPHY Address: home [address] [place] [address] [place] Name: TITO MURPHY Address: home [address] [place] [address] Name: TITO MURPHY Address: home [address] [place] [address]
--- OUTSIDE RECORDS SUMMARY | 2023-12-27 06:44 | XMS_ITS | Continuity of Care Document ---
Author Organization [facility] Address [address] [place] [address]- Care Team Providers Care Medicaid Business Analyst Name Role Phone Toñito COLE, [facility] Primary Care Physician En[place] [facility] [place](s): 10/01/22 - 10/31/22 [facility] [address] [place] [address]- Allergies, Adverse Reactions, Alerts Substance Reaction Severity [...] virus vaccine, inactivated 5 04/26/09 Gi henri [id number] 12y+ bivalent booster vax 03/12/22 Recorded SARS-CoV-2 mRNA ([id number]) vax 10/17/21 Recorded SARS-CoV-2 (COVID-19) mRNA BNT-162b2 vac 03/28/21 Recorded pneumococcal 23-valent vaccine 09/24/16 Given pneumococcal 23-valent vaccine 6 10/24/04 Given pneumococcal 13-valent vaccine 07/10/15 Given Zoster Vaccine Live 7 09/13/08 Given diphtheria-tetanus toxoids (DT) 10/29/03 Given 1Admin Note: [facility] 2Admin Note: Joseph RIVERA [facility] 3Admin Note: Joseph Rivera [facility] 4Result Comment: [07/10/2015] zachcece rivera 5Admin Note: Tapan 6Admin Note: [place] 7Admin Note: diluent lot [id number] Exp 08/28 Medications amLODIPine 10 mg oral tablet 10 mg, 1, tablet, By Mouth, Daily, # 90 tablet, Refills 1, Tot. Refills 1, Maintenance, 03/02/22 20:09:00 EDT, Route to Pharmacy Electronically, [facility], Partial fill upon patient request if the prescription is for a schedule II... Start Date: 03/02/22 Status: Ordered aspirin 81 mg oral delayed [...] tablet, Refills 3, Tot. Refills 3, Maintenance, 10/23/22 13:21:00 EDT, Route to Pharmacy Electronically, [id number], Partial fill upon patient request if the prescription is for a schedule I... Start Date: 10/23/22 Stop Date: 10/18/23 Status: Ordered clobetasol 0.05% topical ointment See [...] Maintenance,11/17/22 8:37:00 EDT, Route to Pharmacy Electronically, [id number], Partial fill upon patient request if the prescription is for a mariana... Start Date: 11/17/22 Status: Ordered gabapentin 300 mg oral capsule 300 mg, 1, capsule, By Mouth, 3 times a day, for 90 days, # 270 capsule, Refills 2, Tot. Refills 2,Hard Stop 11/17/22 8:37:00 EDT, 02/20/22 8:37:00 EDT, Route to Pharmacy Electronically, [facility], Partial fill upon patient reques... Start Date: 02/20/22 Stop Date: 11/17/22 Status: Ordered Gemtesa 75 mg oral tablet 1 tablet, By Mouth, Daily, # 30 tablet, 11 Refills, [facility], 159, cm, 12/10/21 9:01:00 EDT, Height, 81, kg, 12/10/21 9:01:00 EDT, Dry Weight Start Date: 02/05/22 Status: Ordered lamotrigine 100 mg oral tablet 1, tablet, By Mouth, 2 times a day, # 180 tablet, Refills 3, Tot. Refills 3, Maintenance, 11/17/22 8:37:00 EDT, Route to Pharmacy Electronically, [id number], 159, cm, 10/01/22 8:32:00 EDT, Height, 81, kg, 12/10/21 9:01:00 EDT, Dry Weight Start Date: 11/17/22 Status: Ordered lamotrigine 100 mg oral tablet 1, tablet, By Mouth, 2 times a day, for 90 days, # 180 tablet, Refills 2, Tot. Refills 2, Hard Stop11/17/22 8:37:00 EDT, 02/20/22 8:37:00 EDT, Route to Pharmacy Electronically, [facility], 159, cm, 02/12/22 13:41:00 EDT, Height, 81... Start Date: 02/20/22 Stop Date: 11/17/22 Status: Ordered lamotrigine 25 mg oral tablet 50 mg, 2, tablet, By Mouth, 2 times a day, dose increase, # 360 tablet, Refills 3, Tot. Refills 3, Maintenance, 11/17/22 8:38:00 EDT, Route to Pharmacy Electronically, [facility][id number], Partial fill upon patient request if the prescription... Start Date: 11/17/22 Status: Ordered lamotrigine 25 mg oral tablet 50 mg, 2, tablet, By Mouth, 2 times a day, for 90 days, dose increase, # 360 tablet, Refills 2, Tot. Refills 2, Hard Stop 11/17/22 8:38:00 EDT, 02/20/22 8:38:00 EDT, Route to Pharmacy Electronically[facility], Partial fill upon pa... Start Date: 02/20/22 Stop Date: 11/17/22 Status: Ordered Melatonin Daily at bedtime, 0 Refills, Maintenance, 08/05/22 11:55:00 EST, Partial fill upon patient request if the prescription is for a schedule II opioid drug. Start Date: 08/05/22 Status: Ordered omeprazole 20 mg oral delayed release tablet 1 tablet = 20 mg, By Mouth, 2 times a day, # 180 tablet, 1 Refills, Maintenance, 04/10/22 11:36:00 EDT, EC Tablet, [facility], Partial fill upon patient request if the prescriptionis for a schedule II opioid drug., 159, cm, ... 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 AND with no loss of consciousness Confirmed Active Urge urinary incontinence Confirmed Active Social History Social History Type Response Smoking Status Never smoker entered on: 05/23/14 Sex Female Patient Care team information Care Team Personnel Name: Saadia Abdalla Position: [facility] Onco RN Member Role: Primary Care Nurse Name: Janna Sibley MD Position: [facility] Primary Care Physician Member Role: PCP Address: Address: [address] [place] [address] [address] [place], [place] [address] Name: Nasrin Graf RN Position: [facility] Nurse Member Role: Primary Care Nurse Name: Aislinn Mccauley RN Position: [facility] RN Member Role: Primary Care Nurse Care Team Related Persons Name: AMIRA MURPHY Address: home [address] [place] [address] Address: temporary 0 Name: AMIRA MURPHY Address: home [address] [facility] [phone] Name: AMIRA MURPHY Address: [address] [address] Name: TITO MURPHY Address: [address] [address] Name: TITO MURPHY Address: [address] [address] Name: TITO MURPHY Address: [address] [address]
--- OUTSIDE RECORDS SUMMARY | 2023-12-27 06:44 | XMS_ITS | Continuity of Care Document ---
Author Organization [facility] Address Unknown Care Team Providers Care Center Director Name Role Phone Colt LANDIN, Jud Guzman Primary Care Physicia n Encounter [facility] Date(s): 05/05/21 - 06/04/21 [facility] Allergies, Adverse Reactions, Alerts Substance Reaction Severity [...] Note: Joseph Phelan MA 3Admin Note: Joseph Nicole [facility] pallavi ferrell 4Result Comment: [07/10/2015] joseph nicole 5Admin Note: Pallavi 6Admin Note: Pallavi 7Admin [...]
--- OUTSIDE RECORDS SUMMARY | 2023-12-27 06:44 | XMS_ITS | Continuity of Care Document ---
Author Organization [facility] Address [address] [place] [address]- Care Team Providers Care Tavern Car Attendant Name Role Phone Janna Sibley MD Primary Care Physician ( [phone] Encounter [facility] [place] Date(s): 05/25/23 - 06/24/23 [facility] [address] [place] [address]- Attending Physician: Freddie Mcgrath Admitting Physician: AdmFreddie smith Referring Physician: Admtr, Ar8 Allergies, Adverse Reactions, [...] virus vaccine, inactivated 5 04/26/09 Gi henri [id number] 12y+ bivalent booster vax 03/12/22 Recorded SARS-CoV-2 mRNA (ncqhbkb-vdjp-nekkl) vax 10/17/21 Recorded SARS-CoV-2 (COVID-19) mRNA BNT-162b2 vac 03/28/21 Recorded SARS-CoV-2 (COVID-19) mRNA BNT-162b2 vac 08/15/20 Given pneumococcal 23-valent vaccine 09/24/16 Given pneumococcal 23-valent vaccine 6 10/24/04 Given pneumococcal 13-valent vaccine 07/10/15 Given Zoster Vaccine Live 7 09/13/08 Given diphtheria-tetanus toxoids (DT) 10/29/03 Given 1Admin Note: [facility] 2Admin Note: Ajite ROMELIA Pallavi [place] 3Admin Note: Ajite Romelia [facility] pallavi [place] 4Result Comment: [07/10/2015] chelo rivera 5Admin Note: [...] Maintenance,11/17/22 8:37:00 EDT, Route to Pharmacy Electronically, [id number], Partial fill upon patient request if the [...] 13:08:00 EDT, Route to Pharmacy Electronically, [facility], 159, cm, 01/20/23 8:23:00 EDT, [...] 0 Refills, Maintenance, 06/16/23 10:10:00 EST, Tablet, [email or web address][id number], Part... Start Date: 06/16/23 Status: Ordered omeprazole 20 mg oral delayed release tablet 1 tablet = 20 mg, By Mouth, 2 times a day, # 180 tablet, 1 Refills, Maintenance, 12/25/22 15:11:00 EDT, EC Tablet, [facility], Partial fill upon patient request if the prescriptionis for a schedule II opioid drug., 159, cm, ... Start Date: 12/25/22 Stop Date: 06/23/23 Status: Ordered PreserVision AREDS 2 oral capsule [...] Care Team Personnel Name: Saadia Abdalla Position: [facility] Onco RN Member Role: Primary Care Nurse Name: Janna Sibley MD Position: [facility] Physician - Primary Care Member Role: PCP Address: Address: [address] [place] [address] [address] [place], [place] [address] Name: Aislinn Mccauley RN Position: [facility] RN Member Role: Primary Care Nurse Care Team Related Persons Name: AMIRA MURPHY Address: home [address] [place] [address] Name: AMIRA MURPHY Address: [address] [facility] [address] Name: AMIRA MURPHY Address: home [address] [place] [address] [place] Address: temporary 0 Name: TITO MURPHY Address: [address] [place] [address] [place] Name: TITO MURPHY Address: home [address] [place] [address] Name: TITO MURPHY Address: home [address] [place] [address]
--- OUTSIDE RECORDS SUMMARY | 2023-12-27 06:44 | XMS_ITS | Continuity of Care Document ---
Author Organization [facility] Address Unknown Care Team Providers Care Rehab Aid Name Role Phone Colt LANDIN, Jud Guzman Primary Care Physicia n [place] [facility] [place] 04/10/21 - 05/10/21 [facility] Attending Physician: Freddie Mcgrath Admitting Physician: Freddie [...] Joseph Phelan MA 3Admin Note: Joseph Rivera [facility] pallavi ferrell 4Result Comment: [07/10/2015] joseph rivera 5Admin Note: [...]
--- OUTSIDE RECORDS SUMMARY | 2023-12-27 06:44 | XMS_ITS | Continuity of Care Document ---
Author Organization [facility] Address [address] 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 [place]/22[place]21 - 03/22/22 [facility] [address], [address], [address] [place] [address]- Attending Physician: Joellen Perry NP Admitting Physician: Joellen Perry NP Allergies, Adverse Reactions, Alerts Substance Reaction Severity [...] Joseph Phelan MA 3Admin Note: Joseph Rivera [facility] pallavi ferrell 4Result Comment: [07/10/2015] joseph rivera 5Admin Note: Pallavi 6Admin Note: [place] 7Admin Note: diluent lot [id number] Exp 08/28 [...] Status: Ordered chlorthalidone 25 mg oral tablet half tablet, By Mouth, Daily, # 45 tablet, Refills 0, Tot. Refills 0, Maintenance, 12/18/21 13:33:00 EDT, Route to Pharmacy Electronically, [facility], Partial fill upon patient request if the prescription is for a schedule II opioi... Start Date: 12/18/21 Status: Ordered clobetasol 0.05% topical ointment See Instructions, 1 application Topically nightly for 3 months and then 1 - 3x per week for maintenance., # 30 Gm, 1 Refills, Maintenance, 08/27/21 9:36:00 EST, Ointment, [facility], Partial fill upon patient request if the prescrip... Start Date: 08/27/21 Status: Ordered CPAP Equipment Maintenance, 04/15/20 10:10:00 EDT, Supply Start Date: 04/15/20 Status: Ordered Estrace Vaginal Cream 0.1 mg/g See Instructions, 1 gram Vaginally at bedtime twice per week, # 42 Gm, 4 Refills, Maintenance, 08/27/21 9:35:00 EST, [facility], Partial fill upon patient request if the prescription is for a schedule II opioid drug., 159, cm, 030... Start Date: 08/27/21 Status: Ordered gabapentin 300 mg oral capsule 300 mg, 1, capsule, By Mouth, 3 times a day, # 270 capsule, Refills 2, Tot. Refills 2, Maintenance,05/06/21 16:15:00 EST, Route to Pharmacy Electronically, [facility], Partial fill upon patient request, 159, cm, 04/21/21 16:52:00 E... Start Date: 05/06/21 Status: Ordered gabapentin 300 mg oral capsule 300 mg, 1, capsule, By Mouth, 3 times a day, # 270 capsule, Refills 2, Tot. Refills 2, Maintenance,02/20/22 8:37:00 EDT, Route to Pharmacy Electronically, [facility], Partial fillupon patient request if the prescription is for a s... Start Date: 02/20/22 Stop Date: 11/17/22 Status: [...] tablet, Refills 2, Tot. Refills 2, Maintenance, 02/20/22 8:37:00 EDT, Route to Pharmacy Electronically, [facility], 159, cm, 02/12/22 13:41:00 EDT, Height, 81, kg, 12/10/21 9:01:00 EDT, Dry... Start Date: 02/20/22 Stop Date: 11/17/22 Status: Ordered lamotrigine 25 mg oral tablet 50 mg, 2, tablet, By Mouth, 2 times a day, dose increase, # 360 tablet, Refills 2, Tot. Refills 2, Maintenance, 02/20/22 8:38:00 EDT, Route to Pharmacy Electronically, [facility], Partial fill upon patient request if the prescriptio... Start Date: 02/20/22 Stop Date: 11/17/22 Status: Ordered omeprazole 20 mg oral delayed release tablet 1 tablet = 20 mg, By Mouth, 2 times a day, # 180 tablet, 0 Refills, Maintenance, 12/21/21 14:52:00 EDT, EC Tablet, [facility], Partial fill upon patient request if the prescriptionis for a schedule II opioid drug., 159, cm, ... Start Date: 12/21/21 Stop Date: 03/21/22 Status: Ordered PAXLOVID PAXLOVID, See Instructions, # 30 each, Refills 0, Tot. Refills 0, Maintenance, Nirmatrelvir 300 mg (2 pills of 150 mg) with ritonavir 100 mg ( 1 pill). 3 pills twice a day for 5 days for COVID 19 infection., 10/04/21 14:30:00 EDT, Supply, 159, cm, ... Start Date: 10/04/21 Status: Ordered PreserVision AREDS 2 oral capsule [...] 05/23/14 Sex Female Patient Care team information Personnel Name: Janna Sibley MD Address: Address: [address] [facility] 3rd Floor [place], [place] [address]
--- OUTSIDE RECORDS SUMMARY | 2023-12-27 06:44 | XMS_ITS | Continuity of Care Document ---
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 Role Phone Toñito COLE, [facility] Primary Care Physician ( [phone] Encounter [facility] [place] Date(s): 02/24/23 - 06/24/23 [facility] [address] [place] [address]- Attending Physician: Nadia Feldman MD Allergies, Adverse Reactions, Alerts Substance Reaction [...] virus vaccine, inactivated 5 04/26/09 Gi henri [id number] 12y+ bivalent booster vax 03/12/22 Recorded SARS-CoV-2 mRNA ([id number]) vax 10/17/21 Recorded SARS-CoV-2 (COVID-19) mRNA BNT-162b2 vac 03/28/21 Recorded SARS-CoV-2 (COVID-19) mRNA BNT-162b2 vac 08/15/20 Given pneumococcal 23-valent vaccine 09/24/16 Given pneumococcal 23-valent vaccine 6 10/24/04 Given pneumococcal 13-valent vaccine 07/10/15 Given Zoster Vaccine Live 7 09/13/08 Given diphtheria-tetanus toxoids (DT) 10/29/03 Given 1Admin Note: [facility] 2Admin Note: Joseph NICOLE Phelan [place] 3Admin Note: Joseph León [facility] pallavi id 4Result Comment: [07/10/2015] joseph nicole 5Admin Note: [...] Refills, Maintenance, 01/15/22 16:23:00 EDT, Tablet, [facility], Partial fill upon patient request [...] Maintenance,11/17/22 8:37:00 EDT, Route to Pharmacy Electronically, [id number], Partial fill upon patient request if the [...] 0 Refills, Maintenance, 06/16/23 10:10:00 EST, Tablet, [id number], Part... Start Date: 06/16/23 Status: Ordered omeprazole [...] Care Team Personnel Name: Saadia Abdalla Position: [facility] Onco RN Member Role: Primary Care Nurse Name: Janna Sibley MD Position: [facility] Physician - Primary Care Member Role: PCP Address: Address: [address] [place] [address] [address] [place], [place] [address] Name: Aislinn Mccauley RN Position: [facility] RN Member Role: Primary Care Nurse Care Team Related Persons Name: AMIRA MURPHY Address: home [address] [place] [address] Name: AMIRA MURPHY Address: home [address] [place], [place] Address: temporary 0 Name: AMIRA MURPHY Address: [address] [facility] [id number] Name: TITO MURPHY Address: home [address] [place] [address] [place] Name: TITO MURPHY Address: home [address] [place] [address] Name: TITO MURPHY Address: home [address] [place] [address]
--- OUTSIDE RECORDS SUMMARY | 2023-12-27 06:44 | XMS_ITS | Continuity of Care Document ---
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 Name Role Phone Colt LANDIN, Jud Guzman Primary Care Physicia n Encounter [facility] [place] Date(s): 03/26/21 - 04/02/21 [facility] [address] [place] [address]- Encounter Diagnosis Bruising(Discharge Diagnosis) - 03/26/21 Leg wound, right(Discharge Diagnosis) - 03/26/21 Postural dizziness with presyncope(Discharge Diagnosis) - 03/26/21 Hypertension(Discharge Diagnosis) - 03/26/21 Attending Physician: Guy Wolff MD Allergies, Adverse Reactions, Alerts Substance Reaction Severity Status imipramine Active hydrOXYzine Itching Active Immunizations Given and Recorded Vaccine Date Status Refusal Reason influenza virus vaccine, inactivated 02/20/20 Marty rded influenza virus vaccine, inactivated 05/02/19 Marty rded influenza virus vaccine, inactivated 1 04/07/18 Gi henri influenza virus vaccine, inactivated 2 04/01/17 Gi henri influenza virus vaccine, inactivated 3 05/15/16 Gi henri influenza virus vaccine, inactivated 4 06/04/15 Re corded influenza virus vaccine, inactivated 04/02/14 Marty rded [...] Joseph Phelan MA 3Admin Note: Joseph Rivera [facility] pallavi ferrell 4Result Comment: [07/10/2015] joseph rivera 5Admin Note: Pallavi 6Admin Note: Ru[place] 7Admin Note: diluent lot [id number] Exp 08/28 Medications amLODIPine 10 mg oral tablet 1 tablet = 10 mg, By Mouth, Daily, # 90 tablet, 1 Refills, Maintenance, 03/26/21 10:14:00 EDT, Tablet, [facility], Partial fill upon patient request if the prescription is for a schedule II opioid drug., 159ginette, 03/26/21 9:50:00 ED... Start Date: 03/26/21 Status: [...] times a day, # 270 capsule, Refills 1, Tot. Refills 1, Maintenance,09/11/20 10:23:00 EDT, Route to Pharmacy Electronically, [facility], Partial fill upon patient request, 159 cm, 09/04/20 14:05:00 E... Start Date: 09/11/20 Status: Ordered lamotrigine 100 mg oral tablet [...] of consciousness(Confirmed) Active Urge urinary incontinence(Confirmed) Active Diagnosis Diagnosis Type Effective Dates Health Status Clinical Service Informant Bruising Discharge Diagnosis 03/26/21 Leg wound, right Discharge Diagnosis 03/26/21 Postural dizziness with presyncope Discharge Diagnosis 03/26/21 Hypertension Discharge Diagnosis 03/26/21 Vital Signs Most recent to oldest [Reference Range]: 1 2 3 Height 159.0 cm (03/26/21 9:50 AM) 159.0 cm (03/26/21 9:19 AM) 159.0 cm (03/26/21 9:10 AM) Weight 86.9 kg (03/26/21 9:10 AM) Oxygen Saturation [94-100 %] 100 % (03/26/21 9:10 AM) Pulse Rate [55-90 bpm] 60 bpm (03/26/21 9:10 AM) Body Mass Index [18.5-24.99] 34.37 *>HHI* (03/26/21 9:10 AM) Blood Pressure [90-138/55-84 mm Hg] 146/74mm Hg *H* (03/26/21 9:50 AM) 148/80mm Hg *H* (03/26/21 9:19 AM) 166/78mm Hg *H* (03/26/21 9:10 AM) Mode of Delivery (Oxygen) Room air (03/26/21 9:10 AM) Blood pressure sites Arm, left (03/26/21 9:50 AM) Arm, left (03/26/21 9:19 AM) Arm, right (03/26/21 9:10 AM) Weight Obtained Via Standing scale (03/26/21 9:10 AM) Social History Social History Type Response Smoking Status Never smoker entered on: 05/23/14 Sex Female
--- OUTSIDE RECORDS SUMMARY | 2023-12-27 06:44 | XMS_ITS | Continuity of Care Document ---
Author Organization [facility] Address [address] [place] [address]- Care Team Providers Care Investment Recovery Technician Name Role Phone Toñito COLE, [facility] Primary Care Physician [place] [facility] [place](s): 09/17/22 - 10/17/[address] [facility] [address] [place] [address]- Allergies, Adverse Reactions, Alerts Substance Reaction Severity [...] virus vaccine, inactivated 5 04/26/09 Gi henri [id number] 12y+ bivalent booster vax 03/12/22 Recorded SARS-CoV-2 mRNA (ucypgfc-[id number]) vax 10/17/21 Recorded SARS-CoV-2 (COVID-19) mRNA BNT-162b2 vac 03/28/21 Recorded pneumococcal 23-valent vaccine 09/24/16 Given pneumococcal 23-valent vaccine 6 10/24/04 Given pneumococcal 13-valent vaccine 07/10/15 Given Zoster Vaccine Live 7 09/13/08 Given diphtheria-tetanus toxoids (DT) 10/29/03 Given 1[facility] Note: [facility] 2Admin Note: Joseph RIVERA [facility] 3Admin Note: Joseph Rivera [facility] 4Result Comment: [07/10/2015] zachcece rivera 5Admin Note: [...] By Mouth, Daily, # 45 tablet, Refills 1, Tot. Refills 1, Maintenance, 08/24/22 11:35:00 EST, Route to Pharmacy Electronically, [id number], Partial fill upon patient request if the prescription is for a schedule II opioid... Start Date: 08/24/22 Status: Ordered clobetasol 0.05% topical ointment See [...] Care Team Personnel Name: Saadia Abdalla Position: [facility] Onco RN Member Role: Primary Care Nurse Name: Janna Sibley MD Position: [facility] Primary Care Physician Member Role: PCP Address: Address: [address] [place] [address] [address] [place] [address]- Name: Nasrin Graf RN Position: [facility] AMB Nurse Member Role: Primary Care Nurse Name: Aislinn Mccauley RN Position: [facility] RN Member Role: Primary Care Nurse Care Team Related Persons Name: AMIRA MURPHY Address: home [address] [place], [place] Name: AMIRA MURPHY Address: [address] [facility] [address] Name: AMIRA MURPHY Address: [place] [address] [place], [place] Address: temporary 0 Name: TITO MURPHY Address: [address] [place] [address] Name: TITO MURPHY Address: [place] [address] [place], [place] Name: TITO MURPHY Address: [address] [place] [address]
--- OUTSIDE RECORDS SUMMARY | 2023-12-27 06:44 | XMS_ITS | Continuity of Care Document ---
Author Organization [facility] Address [address] [place] [address]- Care Team Providers Care Secondary Market Manager Name Role Phone Colt LANDIN, Jud Guzman Primary Care Physicia n Encounter [facility] [place] Date(s): 05/29/20 - 06/28/20 [facility] [address] [place] [address]- Allergies, Adverse Reactions, Alerts Substance Reaction Severity [...] [facility] 2Admin Note: Joseph Phelan [place] 3Admin Note: Joseph Rivera [facility] 4Result Comment: [07/10/2015] joseph rivera 5Admin [...] Maintenance,05/14/20 13:01:00 EST, Route to Pharmacy Electronically, [facility], Partial fill upon patient request, 160, cm, 04/15/20 9:50:00 ED... Start Date: 05/14/20 Status: Ordered lamotrigine 100 mg oral tablet 100 mg, 1, tablet, By Mouth, 2 times a day, Take with 25mg tablet for total 125mg twice daily, # 180 tablet, Refills 0, Tot. Refills 0, Maintenance, 05/14/20 13:01:00 EST, Route to Pharmacy Electronically, [facility], Partial fill u... Start Date: [...]
--- OUTSIDE RECORDS SUMMARY | 2023-12-27 06:44 | XMS_ITS | Continuity of Care Document ---
Author Organization [facility] Address Unknown Care Team Providers Care Semiconductor Packages Tester Name Role Phone Colt LANDIN, Jud Guzman Primary Care Physicia n Encounter [facility] Date(s): 03/24/21 - 04/23/21 [facility] Allergies, Adverse Reactions, Alerts Substance Reaction [...] Joseph Phelan [place] 3Admin Note: Joseph Nicole [facility] pallavi ferrell 4Result Comment: [07/10/2015] joseph nicole [...] Partial fill upon patient request, 159, cm, 09/04/20 14:05:00 E... Start Date: 09/11/20 [...]
--- OUTSIDE RECORDS SUMMARY | 2023-12-27 06:44 | XMS_ITS | Continuity of Care Document ---
Author Organization [facility] Adult Address [address] [place] [address]- Care Team Providers Care Program Aide Group Work Name Role Phone Janna Sibley MD Primary Care Physician Encounter [facility] Date(s): 11/09/23 - 11/16/[address] [address]- Encounter Diagnosis Hypertension(Discharge Diagnosis) - 11/09/23 Acute metabolic encephalopathy(Discharge Diagnosis) - 11/09/23 UTI (urinary tract infection)(Discharge Diagnosis) - 11/09/23 Anemia(Discharge Diagnosis) - 11/09/23 Attending Physician: Janna Sibley MD Allergies, Adverse Reactions, Alerts Substance Reaction Severity Status imipramine Active hydrOXYzine Itching Active Immunizations Given and Recorded Vaccine Date Status Refusal Reason tetanus/diphtheria/pertussis, acel(Tdap) 1 11/09/23 Given RSV vaccine preF3, recombinant 04/27/23 Recorded pneumococcal 20-valent conjugate vaccine 04/27/23 Recorded influenza virus vaccine, inactivated 04/10/23 Marty rded influenza virus vaccine, inactivated 03/12/22 Marty rded influenza virus vaccine, inactivated 03/28/21 Marty rded influenza virus vaccine, inactivated 02/20/20 Marty rded influenza virus vaccine, inactivated 05/02/19 Marty rded influenza virus vaccine, inactivated 2 04/07/18 Gi henri influenza virus vaccine, inactivated 3 04/01/17 Gi henri influenza virus vaccine, inactivated 4 05/15/16 Gi henri influenza virus vaccine, inactivated 5 06/04/15 Re corded influenza virus vaccine, inactivated 05/23/15 Marty rded influenza virus vaccine, inactivated 10/13/14 Marty rded influenza virus vaccine, inactivated 03/14/13 Give n influenza virus vaccine, inactivated 05/04/12 Marty rded influenza virus vaccine, inactivated 04/03/11 Marty rded influenza virus vaccine, inactivated 05/02/10 Give n influenza virus vaccine, inactivated 6 04/26/09 Gi henri SARS-CoV-2(COVID-19)mRNA-LNP vac([id number]) 04/10/23 Recorded [id number] 12y+ bivalent booster vax 03/12/22 Recorded SARS-CoV-2 mRNA (otkikxq-gqzv-dfsvb) vax 10/17/21 Recorded SARS-CoV-2 (COVID-19) mRNA BNT-162b2 vac 03/28/21 Recorded SARS-CoV-2 (COVID-19) mRNA BNT-162b2 vac 08/15/20 Given SARS-CoV-2 (COVID-19) mRNA BNT-162b2 vac 07/25/20 Recorded pneumococcal 23-valent vaccine 09/24/16 Given pneumococcal 23-valent vaccine 7 10/24/04 Given pneumococcal 13-valent vaccine 07/10/15 Given Zoster Vaccine Live 8 09/13/08 Given diphtheria-tetanus toxoids (DT) 10/29/03 Given 1Result Comment: [facility] [id number] 2Admin Note: [facility] 3Admin Note: [facility] 4Admin Note: Joseph Rivera [facility] 5Result Comment: [07/10/2015] joseph rivera 6Admin Note: [place] 7Admin Note: [place] 8Admin Note: diluent lot [id number] Exp 08/28 Medications [...] 13:21:00 EDT, Aerosol, Route to Pharmacy Electronically, [id number], [facility]... Start Date: 10/13/23 Stop Date: 10/07/24 Status: Ordered amLODIPine 10 mg oral tablet 1 tablet, By Mouth, Daily, # 90 tablet, 1 Refills, Maintenance, 11/01/23 15:48:00 EDT, [facility], 160, cm, 10/29/23 15:47:00 EDT, Height, 77.3, kg, 10/29/23 13:00:00 EDT, Dry Weight Start Date: 11/01/23 Status: Ordered atorvastatin 40 mg oral tablet [...] Date: 12/25/22 Stop Date: 12/20/23 Status: Ordered Clobetasol (Eqv-Temovate E) Topically, 2 times a day, 0 Refills, Maintenance, 11/09/23 11:48:00 EDT, Partial fill upon patient request if the prescription is for a schedule II opioid drug. Start Date: 11/09/23 Status: Ordered CPAP Equipment Maintenance, 04/15/20 10:10:00 EDT, Supply Start Date: 04/15/20 Status: Ordered D-MANNOSE D-MANNOSE, Refills 0, Maintenance, 11/09/23 11:47:00 EDT, Supply Start Date: 11/09/23 Status: Ordered fluticasone-salmeterol 250 mcg-50 mcg inhalation powder 1, puffs, Inhalation, 2 times a day, Urgent rinse mouth and throat after use, # 3 each, Refills 3, Tot. Refills 3, Maintenance, 10/13/23 13:21:00 EDT, Powder, Route to Pharmacy Electronically, [id number], [facility]... Start Date: 10/13/23 Stop [...] 0 Refills, Maintenance, 06/16/23 10:10:00 EST, Tablet, [id number], Part... Start Date: 06/16/23 Status: Ordered omeprazole [...] Effective Dates Health Status Clinical Service Informant Hypertension Discharge Diagnosis 11/09/23 Acute metabolic encephalopathy Discharge Diagnosis 11/09/23 UTI (urinary tract infection) Discharge Diagnosis 11/09/23 Anemia Discharge Diagnosis 11/09/23 Vital Signs Most recent to oldest [Reference Range]: 1 Height 160 cm (11/09/23 11:30 AM) Weight 76.2 kg (11/09/23 11:30 AM) Oxygen Saturation [94-100 %] 97 % (11/09/23 11:30 AM) Pulse Rate [55-90 bpm] 62 bpm (11/09/23 11:30 AM) Body Mass Index [18.5-24.99 kg/m2] 29.77 kg/m2 *H* (11/09/23 11:30 AM) Blood Pressure [90-138/55-84 mm Hg] 110/ 66mm Hg (11/09/23 11:30 AM) Mode of Delivery (Oxygen) Room air (11/09/23 11:30 AM) Blood pressure sites Arm, left (11/09/23 11:30 AM) Social History Social History Type Response Smoking Status Never smoker entered on: 05/23/14 Sex Female Note * Anastasiia Alberts: PERFORM Event Display: Patient Education/Instruction Authored Date: [id number] Ambulatory Adult Visit Summary [facility] [address] [place] [id number] Name: MILLER MURPHY : 1935?? Visit: 11/09/2023 11:25?? Ambulatory Visit Instructions ?? Your Care Team Primary Care Provider Janna Sibley MD? This Visit Provider Janna Sibley MD Your Diagnosis Hypertension Acute metabolic encephalopathy UTI (urinary tract infection) Anemia Urinary tract infection without hematuria, site unspecified Anemia, unspecified type Primary hypertension Encounter for immunization Vitals Signs Pulse Rate: 62 bpm Height: 160 cm Systolic Blood Pressure: 110 mm Hg Weight: 76.2 kg Diastolic Blood Pressure: 66 mm Hg Body Mass Index:??29.77 kg/m2??High Oxygen Saturation: 97 % Body surface area: 1.84 What to do next Scheduled Follow-Up Appointments Wednesday 10:10 AM EDT ?? With: Janna Sibley MD Where: [facility] [address] [place] [address]- Status: Pending Wednesday 3:30 PM EDT ?? With: Connie LANDIN, Megna Where: [facility] [address] [place] [address]- Status: Pending Wednesday 1:00 PM EDT ?? With: Last Hatfield MD Where: [facility] Status: Pending Wednesday 9:30 AM EDT ?? With: Michelle Jennings MD Where: [facility] [address] [facility] [address] [facility], [address] [place] [address]- Status: Pending Medications The list below reflects the information in our records and provided by you today along with any changes made during this visit. Please continue your medications until treatment is completed or stopped by your provider. If this is different from the information you have or there are other questions,please contact the prescribing provider. What How Much When Instructions Changed Chlorthalidone (chlorthalidone 25 mg oral tablet) 0.5 tab(s) Oral Daily Duration: 90 Days Unchanged Albuterol (albuterol CFC free 90 mcg/ inh inhalation aerosol) 2 puff(s) Inhalation 4 times a day as needed for Wheezing/Shortness of Breath Duration: 90 Days Urgent use with spacer chamber ?? Unchanged Amlodipine (amLODIPine 10 mg oral tablet) 1 tab(s) Oral Daily Unchanged Atorvastatin (atorvastatin 40 mg oral tablet) 1 tab(s) Oral Daily Duration: 90 Days Unchanged Calcium And Vitamin D Combination (calcium and vitamin D combination 315 mg-200 iu oral tablet) 1 tab(s) Oral Twice a day Unchanged Clobetasol Topical (Clobetasol (Eqv-Temovate E)) Topically Twice a day Unchanged Durable Medical Equipment (Aerochamber) See instructions Urgent Use with metered dose inhaler. ?? Unchanged Durable Medical Equipment (CPAP Equipment) Unchanged Durable Medical Equipment (Home Blood Pressure Monitor) See instructions Please take blood pressure and heart rate at least once daily. ICD-10 Code: I10 (HTN) ?? Unchanged Fluticasone-Salmeterol (fluticasone-salmeterol 250 mcg-50 mcg inhalation powder) 1 puff(s) Inhalation Twice a day Duration: 90 Days Urgent rinse mouth and throat after use ?? Unchanged Gabapentin (gabapentin 300 mg oral capsule) 1 capsule Oral 3 times a day Unchanged Lamotrigine (lamotrigine 100 mg oral tablet) 1 tab(s) Oral Twice a day Unchanged Lamotrigine (lamotrigine 25 mg oral tablet) 2 tab(s) Oral Twice a day dose increase ?? Unchanged Lisinopril (lisinopril 10 mg oral tablet) See instructions TAKE 1 TABLET DAILY ?? Unchanged Miscellaneous Rx (D-MANNOSE) Unchanged Multivitamin With Minerals (PreserVision AREDS 2 oral capsule) Oral Daily Unchanged Nitroglycerin (Nitrostat 0.3 mg sublingual tablet) 1 tab(s) Sublingual Every 5 minutes as needed for as needed for chest pain not to exceed 3 doses/ 15 min--if pain persists, seek medical attention ?? Unchanged Omeprazole (omeprazole 20 mg oral delayed release tablet) 1 tab(s) Oral Twice a day Duration: 90 Days Unchanged vibegron (Gemtesa 75 mg oral tablet) 1 tab(s) Oral Daily Medications and Immunizations Administered Immunizations Given During Visit Given Vaccine Date tetanus/diphtheria/pertussis, acel(Tdap) 11/09/2023 Comments : [facility] [id number] Medications Given During Visit Medication ?? Dose ?? Route ?? Last Dose Times ?? tetanus/diphtheria/pertussis, acel(Tdap)?0.50 mL?? Intramuscular?? 09-NOV-2023 11:49:00.00?? Allergies (NKA means No Known Allergies) hydrOXYzine??(Itching) imipramine Common Emergency Awareness Tips IS IT A STROKE? Act FAST and Check for these signs: FACE Does the face look uneven? ARM Does one arm drift down? SPEECH Does their speech sound strange? TIME Call at any sign of stroke ?? Heart Attack Signs Chest discomfort: Most heart attacks involve discomfort in the center of the chest and lasts more than a few minutes, or goes away and comes back. It can feel like uncomfortable pressure, squeezing, fullness or pain. Discomfort in upper body: Symptoms can include pain or discomfort in one or both arms, back, neck, jaw or stomach. Shortness of breath: With or without discomfort. Other signs: Breaking out in a cold sweat, nausea, or lightheaded. Remember, MINUTES DO MATTER. If you experience any of these heart attack warning signs, call to get immediate medical attention! ?? Smoking can increase your chances of developing chronic health problems and can cause harmful effects to other family members in your house. If you smoke, you are strongly encouraged to quit. Please call [facility] at [phone] or [phone] Identityware (8002) or log in to [email or web address] for referrals to smoking cessation programs. ?? The National Suicide Prevention Hotline is available 11/01 if you or someone you know needs to find a reason to keep living. By calling 6-529-480-ZEturf (4887) you'll be connected to a skilled, trained counselor at a crisis center in your area. [facility] You can view and manage your care through the patient portal or by using a health care patsy of your choosing. [employer] is a website that allows you to securely view your medical information including your hospital discharge summary, office visit summaries, medications and follow-up visits. You can also request appointments, renew medications, and request access to your medical information using a health care patsy of your choosing, or just ask a question. You can enroll at [email or web address] or register during your next office visit. [facility], in keeping with [facility] guidance, no longer requires face masks for staff, patientsor visitors in most situations. Similiar to time spent indoors at other locations, there is the chance that you were exposed to repiratory viruses during your time with us (such as flu or COVID-19). If you develop symptoms concerning for a viral respiratory infection, please seek testing (and treatment if indicated) from your medical provider or home test kit. ?? Disclaimer: The information provided is of a general nature and is intended to be used in conjunction with the recommendations and advice of your health care practitioner. Every effort has been made to ensure that the information provided is accurate and complete at the time it is provided to you however, as your needs change, or, as new information becomes available, different or additional instructions may be required. ?? If you have questions, please consult with your primary care provider or pharmacist, as appropriate. This information is not intended to serve as substitution for assessment and evaluation by a qualified health care provider. If you do not have a primary care provider, you may find a [facility] provider by calling [facility] at [phone]. Patient Care team information Care Team Personnel Name: Saadia Abdalla Position: [facility] Onco RN Member Role: Primary Care Nurse Name: Janna Sibley MD Position: [facility] Physician - Primary Care Member Role: PCP Address: Address: [address] [place] [id number] Name: Aislinn Mccauley RN Position: [facility] RN Member Role: Primary Care Nurse Care Team Related Persons Name: AMIRA MURPHY Address: home [address] [id number] Name: AMIRA MURPHY Address: home [address] [place], [place] Address: temporary 0 Name: AMIRA MURPHY Address: home [address] [place], [place] Name: TITO MURPHY Address: home [address] [place] [address] Name: TITO MURPHY Address: [place] [address] [place], [place] Name: TITO MURPHY Address: home [address] [place] [address]
--- OUTSIDE RECORDS SUMMARY | 2023-12-27 06:44 | XMS_ITS | Continuity of Care Document ---
Author Organization [facility] Adult Address [address] [place] [address]- Care Team Providers Care Construction Safety Consultant Name Role Phone Toñito COLE, [facility] Primary Care Physician Encounter [facility] Date(s): 04/29/22 - 05/29/22 [facility] Adult [address] [place] [address]- Allergies, Adverse Reactions, Alerts Substance Reaction Severity [...] virus vaccine, inactivated 5 04/26/09 Gi henri [id number] 12y+ bivalent booster vax 03/12/22 Recorded SARS-CoV-2 mRNA (osddner-[id number]) vax 10/17/21 Recorded SARS-CoV-2 (COVID-19) mRNA BNT-162b2 vac 03/28/21 Recorded pneumococcal 23-valent vaccine 09/24/16 Given pneumococcal 23-valent vaccine 6 10/24/04 Given pneumococcal 13-valent vaccine 07/10/15 Given Zoster Vaccine Live 7 09/13/08 Given diphtheria-tetanus toxoids (DT) 10/29/03 Given 1[facility] 2Admin Note: Joseph Phelan [place] 3Admin Note: [facility] [place] 4Result Comment: [07/10/2015] zachcece rivera 5Admin Note: [...] tablet, Refills 1, Tot. Refills 1, Maintenance, 04/10/22 11:36:00 EDT, Route to Pharmacy Electronically, [facility], Partial fill upon patient request if the prescription is for a schedule II opioi... Start Date: 04/10/22 Status: Ordered clobetasol 0.05% topical ointment See [...] Dry Weight Start Date: 02/05/22 Status: Ordered ibuprofen 600 mg oral tablet 600 mg, 1, tablet, By Mouth, 3 times a day, PRN, # 90 tablet, Refills 0, Tot. Refills 0, Acute 06/25/22 10:08:00 EST, Pain , Moderate, 05/27/22 10:02:00 EST, Route to Pharmacy Electronically, [id number], Partial fill upon patient requ... Start Date: 05/27/22 Stop Date: 06/25/22 Status: Ordered lamotrigine 100 mg oral tablet [...] Date: 04/10/22 Stop Date: 10/07/22 Status: Ordered PAXLOVID PAXLOVID, See Instructions, # [...] 10:06:00 EDT Start Date: 04/15/20 Status: Ordered traMADol 50 mg oral tablet 1 tablet = 50 mg, By Mouth, Every 6 hours, PRN Pain , Severe, # 30 tablet, 0 Refills, Acute 06/25/22 10:09:00 EST, 05/27/22 10:09:00 EST, Tablet, [id number], Partial fill upon patient request if the prescription is for a schedule II o... Start Date: 05/27/22 Stop Date: 06/25/22 Status: Ordered Problem List Condition Confirmation Course [...] Care Team Personnel Name: Saadia Abdalla Position: [facility] Onco RN Member Role: Primary Care Nurse Name: Janna Sibley MD Position: [facility] Primary Care Physician Member Role: PCP Address: Address: [address] [place] [address] [address] [place], [place] [address] Name: Nasrin Graf RN Position: [facility] DOROTHEA Nurse Member Role: Primary Care Nurse Name: Aislinn Mccauley RN Position: [facility] RN Member Role: Primary Care Nurse Care Team Related Persons Name: AMIRA MURPHY Address: home [address] [place], [place] Address: temporary 0 Name: AMIRA MURPHY Address: home [address] [facility] [id number] Name: AMIRA MURPHY Address: [address], [place] Name: TITO MURPHY Address: home [address] [place] [address] Name: TITO MURPHY Address: [address], [place] Name: TITO MURPHY Address: home [address] [place] [address]
--- OUTSIDE RECORDS SUMMARY | 2023-12-27 06:44 | XMS_ITS | Continuity of Care Document ---
Author Organization [facility] Adult Address [address] [place] [address]- Care Team Providers Care Composite Mechanic Name Role Phone Janna Sibley MD Primary Care Physician Encounter [facility] Date(s): 11/03/22 - 11/10/22 [facility] Adult [address] [place] [address]- Encounter Diagnosis Malignant melanoma(Discharge Diagnosis) - 11/03/22 Hypertension(Discharge Diagnosis) - 11/03/22 Hypercholesterolemia(Discharge Diagnosis) - 11/03/22 Medicare annual wellness visit, subsequent(Discharge Diagnosis) - 11/03/22 Bilateral hearing loss(Discharge Diagnosis) - 11/03/22 Anxiety disorder(Discharge Diagnosis) - 11/03/22 Diastolic dysfunction(Discharge Diagnosis) - 11/03/22 MCI (mild cognitive impairment)(Discharge Diagnosis) - 11/03/22 Obstructive sleep apnea(Discharge Diagnosis) - 11/03/22 Attending Physician: Janna Sibley MD Allergies, Adverse [...] virus vaccine, inactivated 5 04/26/09 Gi henri [id number] 12y+ bivalent booster vax 03/12/22 Recorded SARS-CoV-2 mRNA (aadtlgv-rqpb-wptou) vax 10/17/21 Recorded SARS-CoV-2 (COVID-19) mRNA BNT-162b2 vac 03/28/21 Recorded pneumococcal 23-valent vaccine 09/24/16 Given pneumococcal 23-valent vaccine 6 10/24/04 Given pneumococcal 13-valent vaccine 07/10/15 Given Zoster Vaccine Live 7 09/13/08 Given diphtheria-tetanus toxoids (DT) 10/29/03 Given 1[facility] 2Admin Note: Joseph RIVERA [facility] 3Admin Note: Joseph Rivera [facility] [place] 4Result Comment: [07/10/2015] joseph rivera 5Admin Note: [...] schedule II... Start Date: 03/02/22 Status: Ordered atorvastatin 40 mg oral tablet [...] 10/23/22 13:21:00 EDT, Route to Pharmacy Electronically, [id number], Partial fill upon patient request if the [...] Maintenance,11/17/22 8:37:00 EDT, Route to Pharmacy Electronically, [facility][id number], Partial fill upon patient request if the prescription is for a mariana... Start Date: 11/17/22 Status: Ordered Gemtesa 75 mg [...] 11/17/22 8:37:00 EDT, Route to Pharmacy Electronically, [facility] #[id number], 159, cm, 10/01/22 8:32:00 EDT, Height, 81, kg, 12/10/21 9:01:00 EDT, Dry Weight Start Date: 11/17/22 Status: Ordered lamotrigine 25 mg oral tablet 50 mg, 2, tablet, By Mouth, 2 times a day, dose increase, # 360 tablet, Refills 3, Tot. Refills 3, Maintenance, 11/17/22 8:38:00 EDT, Route to Pharmacy Electronically, [facility] #[id number], Partial fill upon patient request if the prescription... Start Date: 11/17/22 Status: Ordered Melatonin Daily at [...] Effective Dates Health Status Clinical Service Informant Malignant melanoma Discharge Diagnosis 11/03/22 Hypertension Discharge Diagnosis 11/03/22 Hypercholesterolemia Discharge Diagnosis 11/03/22 Medicare annual wellness visit, subsequent Discharge Diagnosis 11/03/22 Bilateral hearing loss Discharge Diagnosis 11/03/22 Anxiety disorder Discharge Diagnosis 11/03/22 Diastolic dysfunction Discharge Diagnosis 11/03/22 MCI (mild cognitive impairment) Discharge Diagnosis 11/03/22 Obstructive sleep apnea Discharge Diagnosis 11/03/22 Vital Signs Most recent to oldest [Reference Range]: 1 Height 159 cm (11/03/22 1:00 PM) Weight 79 kg (11/03/22 1:00 PM) Oxygen Saturation [94-100 %] 98 % (11/03/22 1:00 PM) Pulse Rate [55-90 bpm] 65 bpm (11/03/22 1:00 PM) Body Mass Index [18.5-24.99 kg/m2] 31.25 kg/m2 *>HHI* (11/03/22 1:00 PM) Blood Pressure [90-138/55-84 mm Hg] 133/ 63mm Hg (11/03/22 1:00 PM) Temperature [96.8-100.4 DegF] 97.7 DegF (11/03/22 1:00 PM) Mode of Delivery (Oxygen) Room air (11/03/22 1:00 PM) Blood pressure sites Arm, left (11/03/22 1:00 PM) Temperature Route Temporal (11/03/22 1:00 PM) Weight Obtained Via Standing scale (11/03/22 1:00 PM) Social History Social History Type Response Smoking Status Never smoker entered on: 05/23/14 Sex Female Note * Arti Miguel: PERFORM, SIGN, VERIFY Event Display: Patient Education/Instruction Authored Date: [id number] [facility] *[facility] [place] [facility] Clinical Summary Name MILLER MURHPY Age 87 Years 1935 PCP Toñito COLE, Janna PCP Visit Date 11/03/2022 12:56:00 Additional Instructions: Scheduled Appointments?? Future Appointments ?*Pain[facility]Management ?[address]??[place],??[place],??[address] ?Phone:??[phone]?Fax:??-- ?Appt. Date:??11/25/2022?8:10 AM ?Scheduled Provider:??Millicent Hays DO ?*[facility] ?[address]??[place],??[place],??[address] ?Phone:??--?Fax:??-- ?Appt. Date:??01/20/2023?7:55 AM ?Scheduled Provider:??Francia COLE, Nadia Blas Follow-Up Instructions ?? With: Address: When: Janna Sibley [address] [facility] [address]rd [facility], [place] [address] Business (1) Within 1 year Comments: AWV Diagnosis Malignant melanoma of skin, unspecified; Mild cognitive impairment of uncertain or unknown etiology; Pure hypercholesterolemia, unspecified; Essential (primary) hypertension; Anxiety disorder, unspecified; Other ill-defined heart diseases; Encounter for general adult medical examination without abnormal findings; Unspecified hearing loss, bilateral Medications: Please continue your medications until treatment is completed or stopped by your provider. Discuss any questions related to medications with your provider. Medications to Continue Taking That Have Changed [facility][id number], [address] [place], [place] [id number], [phone] - Gabapentin (gabapentin 300 mg oral capsule) 1 capsule Oral 3 times a day. Refills: 3. Next Dose: - Lamotrigine (lamotrigine 100 mg oral tablet) 1 tab(s) Oral twice a day. Refills: 3. Next Dose: - Lamotrigine (lamotrigine 25 mg oral tablet) 2 tab(s) Oral twice a day. dose increase. Refills: 3. Next Dose: Medications to Continue with No [id number], [address] [place], [place] [id number], [phone] Chlorthalidone (chlorthalidone 25 mg oral tablet) 0.5 tab(s) Oral Daily for 90 Days. Refills: 3. Next Dose: These medications were not printed or sent to your pharmacy Amlodipine (amLODIPine 10 mg oral tablet) 1 tab(s) Oral Daily. Refills: 1. Next Dose: Atorvastatin (atorvastatin 40 mg oral tablet) 1 tab(s) Oral Daily for 90 Days. Refills: 3. Next Dose: Calcium And Vitamin D Combination (calcium and vitamin D combination 315 mg-200 iu oral tablet) 1 tab(s) Oral twice a day. Next Dose: Clobetasol Topical (clobetasol 0.05% topical ointment) 1 application Topically nightly for 3 monthsand then 1 - 3x per week for maintenance.. Refills: 1. Next Dose: Durable Medical Equipment (CPAP Equipment) Next Dose: Estradiol Topical (estradiol 0.1 mg/g vaginal cream) INSERT 1 GRAM VAGINALLY AT BEDTIME TWICE PER WEEK. Refills: 2. Next Dose: Melatonin Daily at Bedtime. Next Dose: Multivitamin With Minerals (PreserVision AREDS 2 oral capsule) Oral Daily. Next Dose: Omeprazole (omeprazole 20 mg oral delayed release tablet) 1 tab(s) Oral twice a day for 90 Days. Refills: 1. Next Dose: vibegron (Gemtesa 75 mg oral tablet) 1 tab(s) Oral Daily. Refills: 11. Next Dose: No Longer Take the Following Medications Aspirin (aspirin 81 mg oral delayed release tablet) 1 tab(s) Oral Daily. Allergy Info:?? hydrOXYzine; imipramine Medications Given This Visit Future Orders ?Basic Metabolic Panel? Order Date:11/03/22?- Complete by?11/03/22 ?TSH with T4 Reflex (Adults Only)? Order Date:11/03/22?- Complete by?11/03/22 ?Hepatic Function Panel? Order Date:11/03/22?- Complete by?11/03/22 ?Urinalysis (Outpt)? Order Date:11/03/22?- Complete by?11/03/22 ?Lipid Panel? Order Date:11/03/22?- Complete by?11/03/22 ?CBC w/ Differential? Order Date:05/16/23?- Complete by?11/03/22 Vital Signs Height 159 cm Weight 79 kg BMI 31.25 kg/m2 Blood Pressure 133 mm Hg/63 mm Hg Temperature 97.7 DegF Pulse Rate 65 bpm Respiratory Rate 02 Sat Mode of Delivery 98 %/Room air You can now view a summary of your hospital visit from the comfort of your home through a free online portal called [employer]. [employer] is a website that allows you to securely view your medical information including discharge summary, medications and follow-up visits. ??You can alsosend a secure electronic message to your doctor???s office to request appointments, renew medications or just ask a question. You can enroll at [email or web address] or register during your next office [...] primary care provider, you may find a [facility] provider by calling [facility] Link at [phone]. For information about the plan of care [...] Care Team Personnel Name: Saadia Abdalla Position: [facility] Onco RN Member Role: Primary Care Nurse Name: Janna Sibley MD Position: [facility] Primary Care Physician Member Role: PCP Address: Address: [address] 3rd Floor [facility] [place] [address]- [place] Name: Homar HUA, Nasrin Position: [facility] DOROTHEA Nurse Member Role: Primary Care Nurse Name: Aislinn Mccauley RN Position: [facility] RN Member Role: Primary Care Nurse Care Team Related Persons Name: AMIRA MURPHY Address: home [address] [place] [address] Name: AMIRA MURPHY Address: home [address] [facility] [phone] Name: AMIRA MURPHY Address: [address] [place] [address] [place] Address: temporary 0 Name: TITO MURPHY Address: home [address] [place] [address] [place] Name: TITO MURPHY Address: [address] [place] [address] Name: TITO MURPHY Address: home [address] [place] [address]
--- OUTSIDE RECORDS SUMMARY | 2023-12-27 06:44 | XMS_ITS | Continuity of Care Document ---
Author Organization [facility] Address [address] [place], [place] [address]i ve [address] [place] [address]- Care Team Providers Care Nurse Practical Name Role Phone Toñito COLE, Janna Primary Care Physician ( [phone] Encounter [facility] Date(s): 06/22/23 - 07/22/[address] [place] [address]- Allergies, Adverse Reactions, Alerts Substance Reaction Severity [...] virus vaccine, inactivated 5 04/26/09 Gi henri [id number] 12y+ bivalent booster vax 03/12/22 Recorded SARS-CoV-2 mRNA (qqeteco-reve-aujrp) vax 10/17/21 Recorded SARS-CoV-2 (COVID-19) mRNA BNT-162b2 vac 03/28/21 Recorded SARS-CoV-2 (COVID-19) mRNA BNT-162b2 vac 08/15/20 Given pneumococcal 23-valent vaccine 09/24/16 Given pneumococcal 23-valent vaccine 6 10/24/04 Given pneumococcal 13-valent vaccine 07/10/15 Given Zoster Vaccine Live 7 09/13/08 Given diphtheria-tetanus toxoids (DT) 10/29/03 Given 1Admin Note: [facility] 2Admin Note: Ajite ROMELIA Pallavi [place] 3Admin Note: Ajite Romelia [facility] pallavi [place] 4Result Comment: [07/10/2015] chelo rivera 5Admin Note: [...] Maintenance,11/17/22 8:37:00 EDT, Route to Pharmacy Electronically, [facility] #[id number], Partial fill upon patient request if the [...] Required Details, Route to Pharmacy Electronically, [facility], 159, cm, 03/11/23 9:45:00 EDT, Height, 81, kg, 0... Start Date: 05/17/23 Status: Ordered Nitrostat 0.3 mg sublingual tablet 1 tablet = 0.3 mg, Sublingual, Every 5 minutes, PRN as needed for chest pain, not to exceed 3 doses/15 min--if pain persists, seek medical attention, # 25 tablet, 0 Refills, Maintenance, 06/16/23 10:10:00 EST, Tablet, [facility] #[id number], Part... Start Date: 06/16/23 Status: Ordered omeprazole 20 mg oral delayed release tablet 1 tablet = 20 mg, By Mouth, 2 times a day, # 180 tablet, 1 Refills, Maintenance, 07/20/23 13:18:00 EST, EC Tablet, [facility], Partial fill upon patient request [...] Care Team Personnel Name: Saadia Abdalla Position: [facility] Onco RN Member Role: Primary Care Nurse Name: Janna Sibley MD Position: [facility] Physician - Primary Care Member Role: PCP Address: Address: [address] [place] [address] [address] [place], [place] [address] Name: Aislinn Mccauley RN Position: [facility] RN Member Role: Primary Care Nurse Care Team Related Persons Name: AMIRA MURPHY Address: home [address] [place] [id number] Name: AMIRA MURPHY Address: home [address] [place] [address] [place] Address: temporary 0 Name: AMIRA MURPHY Address: home [address] [place] [address] Name: TITO MURPHY Address: [address] [place] [address] [place] Name: TITO MURPHY Address: home [address] [place] [address] Name: TITO MURPHY Address: [address] [place] [address]
--- OUTSIDE RECORDS SUMMARY | 2023-12-27 06:44 | XMS_ITS | Continuity of Care Document ---
Author Organization [facility] Address [address] [place] [address]- Care Team Providers Care Personnel Interviewer Name Role Phone Dereck Sibley [facility] Primary Care Physician Encounter [facility] Date(s): 11/25/22 - 12/25/22 [facility] [address] [place] [address]- Attending Physician: Freddie Mcgrath Admitting Physician: Freddie Mcgrath Referring Physician: AdmFreddie smith Allergies, Adverse Reactions, Alerts Substance Reaction Severity [...] virus vaccine, inactivated 5 04/26/09 Gi henri [id number] 12y+ bivalent booster vax 03/12/22 Recorded SARS-CoV-2 mRNA (hhkqeyo-cfkr-zltte) vax 10/17/21 Recorded SARS-CoV-2 (COVID-19) mRNA BNT-162b2 vac 03/28/21 Recorded SARS-CoV-2 (COVID-19) mRNA BNT-162b2 vac 08/15/20 Given pneumococcal 23-valent vaccine 09/24/16 Given pneumococcal 23-valent vaccine 6 10/24/04 Given pneumococcal 13-valent vaccine 07/10/15 Given Zoster Vaccine Live 7 09/13/08 Given diphtheria-tetanus toxoids (DT) 10/29/03 Given 1Admin Note: [facility] 2Admin Note: [facility] [place] 3Admin Note: [facility] [place] 4Result Comment: [07/10/2015] zache nicole 5Admin Note: Pallavi 6Admin Note: Pallavi [...] Maintenance,11/17/22 8:37:00 EDT, Route to Pharmacy Electronically, [facility] #[id number], Partial fill upon patient request if the [...] 11/17/22 8:37:00 EDT, Route to Pharmacy Electronically, [facility] #[id number], 159, cm, 10/01/22 8:32:00 EDT, Height, 81, kg, 12/10/21 9:01:00 EDT, Dry Weight Start Date: 11/17/22 Status: Ordered lamotrigine 25 mg oral tablet 50 mg, 2, tablet, By Mouth, 2 times a day, dose increase, # 360 tablet, Refills 3, Tot. Refills 3, Maintenance, 11/17/22 8:38:00 EDT, Route to Pharmacy Electronically, [facility] #[id number], Partial fill upon patient request if the prescription... Start Date: 11/17/22 Status: Ordered omeprazole 20 mg [...] Care Team Personnel Name: Saadia Abdalla Position: [facility] Onco RN Member Role: Primary Care Nurse Name: Janna Sibley MD Position: [facility] Physician - Primary Care Member Role: PCP Address: Address: [address] [place] [address] [address]rd [facility] [place] [address]- [place] Name: Homar RN, Nasrin Position: [facility] AMB Nurse Member Role: Primary Care Nurse Name: Garrick HUA, Aislinn Position: [facility] RN Member Role: Primary Care Nurse Care Team Related Persons Name: AMIRA MURPHY Address: [address] Name: AMIRA MURPHY Address: [address] [phone] Name: AMIRA MURPHY Address: [address] [place] Address: temporary 0 Name: TITO MURPHY Address: home [address] [place] [address] [place] Name: TITO MURPHY Address: [address] Name: TITO MURPHY Address: [address] [address]
--- OUTSIDE RECORDS SUMMARY | 2023-12-27 06:44 | XMS_ITS | Continuity of Care Document ---
Author Organization [facility] Rekhaallison Sanderson n's [facility] Address [address] [facility], 4t [place] [address]- Care Team Providers Care Wood Getter Name Role Phone Toñito COLE, Janna Primary Care Physician Encounter [facility] Date(s): 01/29/23 - 02/28/23 [facility] [address] [employer] [facility] [address], 4th [place] [address]- Allergies, Adverse Reactions, Alerts Substance Reaction Severity [...] virus vaccine, inactivated 5 04/26/09 Gi henri [id number] 12y+ bivalent booster vax 03/12/22 Recorded SARS-CoV-2 mRNA (itawcvt-xnme-thkwh) vax 10/17/21 Recorded SARS-CoV-2 (COVID-19) mRNA BNT-162b2 vac 03/28/21 Recorded SARS-CoV-2 (COVID-19) mRNA BNT-162b2 vac 08/15/20 Given pneumococcal 23-valent vaccine 09/24/16 Given pneumococcal 23-valent vaccine 6 10/24/04 Given pneumococcal 13-valent vaccine 07/10/15 Given Zoster Vaccine Live 7 09/13/08 Given diphtheria-tetanus toxoids (DT) 10/29/03 Given 1Admin Note: [facility] 2Admin Note: Ajite ROMELIA Pallavi [place] 3Admin Note: Ajite Romelia [facility] [place] 4Result Comment: [07/10/2015] chelo rivera 5Admin Note: [...] 12:50:00 EDT, Route to Pharmacy Electronically, [facility], Partial fill upon patient request [...] Maintenance,11/17/22 8:37:00 EDT, [facility]ically, [id number], Partial fill upon patient request if the prescription is for a mariana... Start Date: 11/17/22 Status: Ordered Gemtesa 75 mg oral tablet 1 tablet, By Mouth, Daily, for 30 days, # 90 tablet, 3 Refills, Physician Stop 06/18/23 11:36:00 EST, 02/18/23 11:36:00 EDT, [facility], 159, cm, 01/20/23 8:23:00 EDT, Height, 81, kg, 12/10/21 9:01:00 EDT, Dry Weight Start Date: 02/18/23 Stop Date: 06/18/23 Status: Ordered Home Blood Pressure Monitor See [...] the prescripti... Start Date: 02/12/23 Status: Ordered omeprazole 20 mg oral delayed [...] Care Team Personnel Name: Saadia Abdalla Position: [facility] Onco RN Member Role: Primary Care Nurse Name: Janna Sibley MD Position: [facility] Physician - Primary Care Member Role: PCP Address: Address: [address] [place] [address] Name: Aislinn Mccauley RN Position: [facility] RN Member Role: Primary Care Nurse Care Team Related Persons Name: AMIRA MURPHY Address: [place] [address] [place] [phone] Name: AMIRA MURPHY Address: [place] [address] [place] [address] Address: [facility] 0 Name: AMIRA MURPHY Address: [place] [address] [place] [address] Name: TITO MURPHY Address: [address] [place] [address] [place] Name: TITO MURPHY Address: [place] [address] [place] [address] Name: TITO MURPHY Address: [place] [address] [place] [address]
--- OUTSIDE RECORDS SUMMARY | 2023-12-27 06:44 | XMS_ITS | Continuity of Care Document ---
Author Organization [facility] Address [address] [place] [address]- Care Team Providers Care Power Plant Electrician Name Role Phone Colt LANDIN, Jud Guzman Primary Care Physicia n Encounter [facility] Date(s): 07/10/20 - 08/09/20 [facility] [address] [place] [address]- Allergies, Adverse Reactions, Alerts Substance Reaction Severity [...] diphtheria-tetanus toxoids (DT) 10/29/03 Given 1Admin Note: [facility] 2Admin Note: Joseph Phelan [place] 3Admin Note: Jospeh Rivera [facility] [place] 4Result Comment: [07/10/2015] joseph rivera 5Admin Note: [...] 13:01:00 EST, Route to Pharmacy Electronically, [facility], Partial fill upon patient request, 160, cm, 04/15/20 9:50:00 ED... Start Date: 05/14/20 Status: Ordered lamotrigine 100 mg oral tablet 100 mg, 1, tablet, By Mouth, 2 times a day, Take with 25mg tablet for total 125mg twice daily, # 180 tablet, Refills 0, Tot. Refills 0, Maintenance, 05/14/20 13:01:00 EST, Route to Pharmacy Electronically, [facility], Partial fill u... Start Date: [...]
--- OUTSIDE RECORDS SUMMARY | 2023-12-27 06:44 | XMS_ITS | Continuity of Care Document ---
Author Organization [facility] Address [address], [address], [address] [place] [address]- Care Team Providers Care Obstetrics And Gynecology Professor Name Role Phone Toñito COLE, Dereckohiohealth hardin memorial hospitaljuan Primary Care Physician ( [phone] [place] [facility] Date(s): 07/15/23 - 08/14/23 [facility] [address], [address], [address] [place] [address]- Allergies, Adverse Reactions, Alerts Substance Reaction Severity [...] virus vaccine, inactivated 5 04/26/09 Gi henri [id number] 12y+ bivalent booster vax 03/12/22 Recorded SARS-CoV-2 mRNA (frbigrl-cgew-vubcr) vax 10/17/21 Recorded SARS-CoV-2 (COVID-19) mRNA BNT-162b2 vac 03/28/21 Recorded SARS-CoV-2 (COVID-19) mRNA BNT-162b2 vac 08/15/20 Given pneumococcal 23-valent vaccine 09/24/16 Given pneumococcal 23-valent vaccine 6 10/24/04 Given pneumococcal 13-valent vaccine 07/10/15 Given Zoster Vaccine Live 7 09/13/08 Given diphtheria-tetanus toxoids (DT) 10/29/03 Given 1Admin Note: [facility] 2Admin Note: [facility] [place] 3Admin Note: [facility] [place] 4Result Comment: [07/10/2015] chelo rivera 5Admin Note: [...] Refills, Maintenance, 01/15/22 16:23:00 EDT, Tablet, [facility], Partial fill upon patient request [...] Maintenance,11/17/22 8:37:00 EDT, Route to Pharmacy Electronically, [facility] #[id number], Partial fill upon patient request if the [...] 13:08:00 EDT, Route to Pharmacy Electronically, [facility], 159, cm, 01/20/23 8:23:00 EDT, [...] Required Details, Route to Pharmacy Electronically, [facility], 159, cm, 03/11/23 9:45:00 EDT, Height, 81, kg, 0... Start Date: 05/17/23 Status: Ordered Nitrostat 0.3 mg sublingual tablet 1 tablet = 0.3 mg, Sublingual, Every 5 minutes, PRN as needed for chest pain, not to exceed 3 doses/15 min--if pain persists, seek medical attention, # 25 tablet, 0 Refills, Maintenance, 06/16/23 10:10:00 EST, Tablet, [facility] #[id number], Part... Start Date: 06/16/23 Status: Ordered omeprazole 20 mg oral delayed release tablet 1 tablet = 20 mg, By Mouth, 2 times a day, # 180 tablet, 1 Refills, Maintenance, 07/20/23 13:18:00 EST, EC Tablet, [facility], Partial fill upon patient request [...] Care Team Personnel Name: Saadia Abdalla Position: [facility] Onco RN Member Role: Primary Care Nurse Name: Janna Sibley MD Position: [facility] Physician - Primary Care Member Role: PCP Address: Address: [address] [place] [address] [address] [place], [place] [address] Name: Ailsinn Mccauley RN Position: [facility] RN Member Role: Primary Care Nurse Care Team Related Persons Name: AMIRA MURPHY Address: home [address] [place] [address] Name: AMIRA MURPHY Address: home [address] [place] [address] [place] Address: temporary 0 Name: AMIRA MURPHY Address: [address] [facility] [address] Name: TITO MURPHY Address: [address] [place] [address] [place] Name: TITO MURPHY Address: home [address] [place] [address] Name: TITO MURPHY Address: [address] [place] [address]
--- OUTSIDE RECORDS SUMMARY | 2023-12-27 06:44 | XMS_ITS | Continuity of Care Document ---
Author Organization [facility] Address [address] [place] [address]- Care Team Providers Care Acid Strength Inspector Name Role Phone Colt LANDIN, Jud Guzman Primary Care Physicia n [id number] Date(s): 05/[facility]/21 - 07/24/21 [facility] [address] [place] [address]- Attending Physician: Nadia Feldman MD Admitting Physician: Nadia Feldman MD Referring Physician: Guy Wolff MD Allergies, Adverse Reactions, [...] vaccine 6 10/24/04 Given pneumococcal 13-valent vaccine 1/20/16 Given Zoster Vaccine Live 7 09/13/08 Given diphtheria-tetanus toxoids (DT) 10/29/03 Given 1[facility] 2Admin Note: Joseph Phelan [place] 3Admin Note: Joseph Rivera [facility] pallavi ferrell 4Result Comment: [07/10/2015] joseph rivera 5Admin Note: Pallavi 6Admin Note: Pallavi 7Admin Note: diluent lot [id number] Exp 08/28 Medications amLODIPine 10 mg oral tablet 10 mg, 1, tablet, By Mouth, Daily, # 90 tablet, Refills 1, Tot. Refills 1, Maintenance, 07/14/21 9:49:00 EST, Route to Pharmacy Electronically, [facility], Partial fill upon patient request if the prescription is for a schedule II o... Start Date: 07/14/21 Status: Ordered aspirin 81 mg oral delayed [...] day, # 180 tablet, 1 Refills, Maintenance, 06/24/21 14:52:00 EST, EC Tablet, [facility], Partial fill upon patient request if the prescriptionis for a schedule II opioid drug., 159, cm, ... Start Date: 06/24/21 Stop Date: 12/21/21 Status: Ordered PreserVision AREDS 2 oral capsule By Mouth, Daily, 0 Refills, Maintenance, 04/15/20 10:06:00 EDT Start Date: 04/15/20 Status: Ordered Problem List Condition Effective Dates Status Health Status Inform ant Anxiety disorder(Confirmed) Active Bilateral hearing loss(Confirmed) 06/01/13 Active Macular degeneration of left eye(Confirmed) Active Other specified depressive episodes(Confirmed) Active Fatigue(Confirmed) Active Fibromyalgia(Confirmed) Active Functional heart murmur(Confirmed) 04/24/19 Active Gastroesophageal reflux dise ase with hiatal hernia(Confirmed) Active Hypercholesterolemia(Confirmed) Active Hypertension(Confirmed) Active Malignant melanoma(Confirmed) Active MCI (mild cognitive impairment)(Confirmed) Active Obese class II(Confirmed) Active Obstructive sleep apnea(Confirmed) Active Osteopenia(Confirmed) Active Chronic polyneuropathy(Confirmed) Active Lumbar spinal stenosis(Confirmed) Active Subarachnoid hemorrhage foll owing injury without open intracranial wound AND with no loss of consciousness(Confirmed) Active Urge urinary incontinence(Confirmed) Active Social History Social History Type Response Smoking Status Never smoker entered on: 05/23/14 Sex Female
--- OUTSIDE RECORDS SUMMARY | 2023-12-27 06:45 | XMS_ITS | Continuity of Care Document ---
Author Organization [facility] Address [address] [place] [address]- Care Team Providers Care Spiral Runner Name Role Phone Toñito COLE, Janna Primary Care Physician En[place] [facility] [place] Date(s): 12/08/21 - 02/09/22 [facility] [address] [place] [id number] Discharge Disposition: A-D/C Home Attending Physician: Chel COLE(Hem/Onc), Farhad Hoa Admitting Physician: Jessica Gallegos MD Referring Physician: Janna Sibley MD Allergies, Adverse Reactions, [...] [facility] 2Admin Note: Joseph Phelan [place] 3Admin Note: [facility] pall[facility] [place] 4Result Comment: [07/10/2015] zachcece rivera 5Admin Note: Pallavi 6Admin Note: Pallavi 7Admin Note: diluent lot [id number] Exp 08/28 Medications amLODIPine 10 mg oral tablet 10 mg, 1, tablet, By Mouth, Daily, # 90 tablet, Refills 1, Tot. Refills 1, Maintenance, 08/25/21 16:28:00 EST, Route to Pharmacy Electronically, [facility], Partial fill upon patient request if the prescription is for a schedule II... Start Date: 08/25/21 Status: Ordered aspirin 81 mg oral delayed [...] opioid drug., 159, cm, ... Start Date: 08/27/21 Status: Ordered gabapentin 300 [...] times a day, # 90 capsule, Refills 1, Tot. Refills 1, Maintenance, 08/21/21 13:28:00 EST, Route to Pharmacy Electronically, [id number], Partial fill upon patient request if the prescription is for a mariana... Start Date: 08/21/21 Stop Date: 10/20/21 Status: Ordered Gemtesa 75 mg oral tablet 1 tablet, By Mouth, Daily, # 30 tablet, 11 Refills, [facility], 159, cm, 12/10/21 9:01:00 EDT, Height, 81, kg, 12/10/21 9:01:00 EDT, Dry Weight Start Date: 02/05/22 Status: Ordered lamotrigine 100 mg oral tablet 1, tablet, By Mouth, 2 times a day, # 180 tablet, Refills 3, Tot. Refills 3, Maintenance, 08/21/21 13:29:00 EST, Route to Pharmacy Electronically, [facility], 159, cm, 08/21/21 13:08:00 EST, Height, 84.9, kg, 12/11/20 14:23:00 EDT,... Start Date: 08/21/21 Stop Date: 08/16/22 Status: Ordered lamotrigine 25 mg oral tablet 50 mg, 2, tablet, By Mouth, 2 times a day, dose increase, # 360 tablet, Refills 3, Tot. Refills 3, Maintenance, 08/21/21 13:29:00 EST, Route to Pharmacy Electronically, [facility],Partial fill upon patient request if the prescripti... Start Date: 08/21/21 Stop Date: 08/16/22 Status: Ordered omeprazole 20 mg oral delayed [...] eye(Confirmed) Active Other specified depressive episodes(Confirmed) Active Diastolic dysfunction(Confirmed) Active Fatigue(Confirmed) Active Fibromyalgia(Confirmed) Active Functional heart murmur(Confirmed) 04/24/19 Active Gastroesophageal reflux dise ase with hiatal hernia(Confirmed) Active Hypercholesterolemia(Confirmed) Active Hypertension(Confirmed) Active Malignant melanoma(Confirmed) Active MCI (mild cognitive impairment)(Confirmed) Active Obese class I(Confirmed) Active Obstructive sleep apnea(Confirmed) Active Osteopenia(Confirmed) Active Chronic polyneuropathy(Confirmed) Active Lumbar spinal stenosis(Confirmed) Active Subarachnoid hemorrhage foll owing injury without open intracranial wound AND with no loss of consciousness(Confirmed) Active Urge urinary incontinence(Confirmed) Active Vital Signs Most recent to oldest [Reference Range]: 1 Height 159 cm (12/10/21 9:01 AM) Weight 81.0 kg (12/10/21 9:01 AM) Pulse Rate [55-90 bpm] 83 bpm (12/10/21 9:01 AM) Body Mass Index [18.5-24.99] 32.04 *>HHI* (12/10/21 9:01 AM) Blood Pressure [90-138/55-84 mm Hg] 158/ 81mm Hg *H* (12/10/21 9:01 AM) Temperature [96.8-100.4 DegF] 98.3 DegF (12/10/21 9:01 AM) Blood pressure sites Arm, right (12/10/21 9:01 AM) Temperature Route Oral (12/10/21 9:01 AM) Dry Weight 81.0 kg (12/10/21 9:01 AM) Weight Obtained Via Standing scale (12/10/21 9:01 AM) Dry Weight Obtained Via Standing scale (12/10/21 9:01 AM) Social History Social History Type Response Smoking Status Never smoker entered on: 05/23/14 Sex Female
--- OUTSIDE RECORDS SUMMARY | 2023-12-27 06:45 | XMS_ITS | Continuity of Care Document ---
Author Organization [facility] Address [address], [address] [place] [address]- Care Team Providers Care Supervisor Plastering Name Role Phone Toñito COLE, Janna Primary Care Physician Encounter [facility] [place] Date(s): 02/18/23 - 03/20/23 [facility] [address], [address]th [place] [address]- Attending Physician: Freddie Mcgrath Admitting Physician: AdmFreddie smith Referring Physician: AdmtrFreddie Allergies, Adverse Reactions, Alerts [...] virus vaccine, inactivated 5 04/26/09 Gi henri [id number] 12y+ bivalent booster vax 03/12/22 Recorded SARS-CoV-2 mRNA (ozfwumk-mwnj-uleds) vax 10/17/21 Recorded SARS-CoV-2 (COVID-19) mRNA BNT-162b2 vac 03/28/21 Recorded SARS-CoV-2 (COVID-19) mRNA BNT-162b2 vac 08/15/20 Given pneumococcal 23-valent vaccine 09/24/16 Given pneumococcal 23-valent vaccine 6 10/24/04 Given pneumococcal 13-valent vaccine 07/10/15 Given Zoster Vaccine Live 7 09/13/08 Given diphtheria-tetanus toxoids (DT) 10/29/03 Given 1Admin Note: [facility] 2Admin Note: Joseph Phelan [place] 3Admin Note: Joseph Rivera [facility] pallavi ferrell 4Result Comment: [07/10/2015] joseph rivera [...] Dry Weight Start Date: 05/06/22 Status: Ordered furosemide 20 mg oral tablet 20 mg, 1, tablet, By Mouth, Daily, # 30 tablet, Refills 2, Tot. Refills 2, Maintenance, 03/11/23 9:55:00 EDT, Route to Pharmacy Electronically, [facility] #[id number], Partial fill upon patient request if the prescription is for a schedule II opi... Start Date: 03/11/23 Status: Ordered gabapentin 300 mg oral capsule 300 mg, 1, capsule, By Mouth, 3 times a day, # 270 capsule, Refills 3, Tot. Refills 3, Maintenance,11/17/22 8:37:00 EDT, Route to Pharmacy Electronically, [facility] #[id number], Partial fill upon patient request if the [...] 13:08:00 EDT, Route to Pharmacy Electronically, [facility], 159, cm, 01/20/23 8:23:00 EDT, Height, 81, kg, 12/10/21 9:01:00 EDT, Dry... Start Date: 02/12/23 Status: Ordered lamotrigine 25 mg oral tablet 50 mg, 2, tablet, By Mouth, 2 times a day, dose increase, # 360 tablet, Refills 2, Tot. Refills 2, Maintenance, 02/12/23 13:09:00 EDT, Route to Pharmacy Electronically, [facility],Partial fill upon patient request if the prescripti... Start Date: 02/12/23 Status: Ordered lisinopril 5 mg oral tablet 5 mg, 1, tablet, By Mouth, Daily, # 30 tablet, Refills 2, Tot. Refills 2, Maintenance, 03/11/23 10:00:00 EDT, Route to Pharmacy Electronically, [facility] #[id number], Partial fill upon patient request if the prescription is for a schedule II opi... Start Date: 03/11/23 Status: Ordered omeprazole 20 mg oral delayed [...] Care Team Personnel Name: Saadia Abdalla Position: [facility] Onco RN Member Role: Primary Care Nurse Name: Janna Sibley MD Position: [facility] Physician - Primary Care Member Role: PCP Address: Address: [address] [place] [address] [address] [place], [place] [address] Name: Aislinn Mccauley RN Position: [facility] RN Member Role: Primary Care Nurse Care Team Related Persons Name: AMIRA MURPHY Address: home [address] [place], [place] Address: temporary 0 Name: AMIRA MURPHY Address: home [address] [place], [place] Name: AMIRA MURPHY Address: home [address] [facility] [id number] Name: TITO MURPHY Address: home [address] [place] [address] Name: TITO MURPHY Address: [address] [place], [place] Name: TITO MURPHY Address: home [address] [place] [address]
--- OUTSIDE RECORDS SUMMARY | 2023-12-27 06:45 | XMS_ITS | Continuity of Care Document ---
Author Organization [facility] Address [address] [place] [address]- Care Team Providers Care Coordinate Measuring Equipment Operator Name Role Phone Toñito COLE, Dereckmarietta osteopathic clinicjuan Primary Care Physician Encounter [facility] Date(s): 10/29/21 - 11/28/21 [facility] [address] [place] [address]- Allergies, Adverse Reactions, Alerts Substance Reaction Severity [...] Joseph Phelan [place] 3Admin Note: Joseph Rivera [facility] pallavi ferrell 4Result Comment: [07/10/2015] joseph rivera [...] EDT, Tablet Start Date: 04/15/20 Status: Ordered Chlorthalidone By Mouth, Daily, 0 Refills, Maintenance, 08/19/21 9:36:00 EST, Partial fill upon patient request ifthe prescription is for a schedule II opioid drug. Start Date: 08/19/21 Status: Ordered clobetasol 0.05% topical ointment See [...] 08/21/21 13:28:00 EST, Route to Pharmacy Electronically, [facility] #[id number], Partial fill upon patient request if the prescription is for a mariana... Start Date: 08/21/21 Stop Date: 10/20/21 Status: Ordered lamotrigine 100 mg oral tablet [...] Date: 06/24/21 Stop Date: 12/21/21 Status: Ordered PAXLOVID PAXLOVID, See Instructions, # [...] 10:06:00 EDT Start Date: 04/15/20 Status: Ordered vibegron 75 mg oral tablet 1 tablet = 75 mg, By Mouth, Daily, # 30 tablet, 6 Refills, Maintenance, 08/27/21 9:35:00 EST, Tablet, [facility], Partial fill upon patient request if the prescription is for a schedule II opioid drug., 159, cm, 08/27/21 8:58:00 EST... Start Date: 08/27/21 Status: Ordered Problem List Condition Effective Dates [...]
--- OUTSIDE RECORDS SUMMARY | 2023-12-27 06:45 | XMS_ITS | Continuity of Care Document ---
Author Organization [facility] Address [address] [place] [address]- Care Team Providers Care Electric Motor Repairing Supervisor Name Role Phone Toñito COLE, [facility] Primary Care Physician [place] [facility] [place] 07/26/23 - 08/25/[address] [address]- Allergies, Adverse Reactions, Alerts Substance Reaction Severity [...] virus vaccine, inactivated 5 04/26/09 Gi henri [id number] 12y+ bivalent booster vax 03/12/22 Recorded SARS-CoV-2 mRNA (ownykbq-dcyx-etkuu) vax 10/17/21 Recorded SARS-CoV-2 (COVID-19) mRNA BNT-162b2 vac 03/28/21 Recorded SARS-CoV-2 (COVID-19) mRNA BNT-162b2 vac 08/15/20 Given pneumococcal 23-valent vaccine 09/24/16 Given pneumococcal 23-valent vaccine 6 10/24/04 Given pneumococcal 13-valent vaccine 07/10/15 Given Zoster Vaccine Live 7 09/13/08 Given diphtheria-tetanus toxoids (DT) 10/29/03 Given 1[facility] Note[facility] 2Admin Note: [facility] [place] 3Admin Note: [facility] pallavi [place] 4Result Comment: [07/10/2015] [facility] 5Admin Note: Pallavi 6Admin Note: Pallavi 7Admin [...] Maintenance,11/17/22 8:37:00 EDT, Route to Pharmacy Electronically, [facility] #[id number], Partial fill upon patient request if the [...] 13:09:00 EDT, Route to Pharmacy Electronically, [facility],Partial fill upon patient request if [...] 0 Refills, Maintenance, 06/16/23 10:10:00 EST, Tablet, [id number], Part... Start Date: 06/16/23 Status: Ordered omeprazole [...] Care Team Personnel Name: Saadia Abdalla Position: [facility] Onco RN Member Role: Primary Care Nurse Name: Janna Sibley MD Position: [facility] Physician - Primary Care Member Role: PCP Address: Address: [address] [place] [id number] Name: Aislinn Mccauley RN Position: [facility] RN Member Role: Primary Care Nurse Care Team Related Persons Name: AMIRA MURPHY Address: home [address] [place] [id number] Name: AMIRA MURPHY Address: home [address] [place] [address] [place] Address: temporary 0 Name: AMIRA MURPHY Address: home [address] [place] [address] Name: TITO MURPHY Address: home [address] [place] [address] [place] Name: TITO MURPHY Address: [address] [place] [address] Name: TITO MURPHY Address: home [address] [place] [address]
--- OUTSIDE RECORDS SUMMARY | 2023-12-27 06:45 | XMS_ITS | Continuity of Care Document ---
Author Organization [facility] ter Address [address] [place] [address]- Care Team Providers Care Agate Setter Name Role Phone Janna Sibley MD Primary Care Physician [place] [facility] [place] Date(s): 02/15/23 - 03/27/[address] [address] Attending Physician: Nadia Feldman MD Admitting Physician: Nadia Feldman MD Referring Physician: Nadia Feldman MD Allergies, Adverse Reactions, Alerts Substance Reaction Severity Status imipramine Active hydrOXYzine Itching Active Immunizations Given and Recorded Vaccine Date Status Refusal Reason influenza virus vaccine, inactivated 03/12/22 Marty rded influenza virus vaccine, inactivated 03/28/21 Mraty rded influenza virus vaccine, inactivated 02/20/20 Marty [...] virus vaccine, inactivated 5 04/26/09 Gi henri [id number] 12y+ bivalent booster vax 03/12/22 Recorded SARS-CoV-2 mRNA (kelquhj-rliu-immge) vax 10/17/21 Recorded SARS-CoV-2 (COVID-19) mRNA BNT-162b2 vac 03/28/21 Recorded SARS-CoV-2 (COVID-19) mRNA BNT-162b2 vac 08/15/20 Given pneumococcal 23-valent vaccine 09/24/16 Given pneumococcal 23-valent vaccine 6 10/24/04 Given pneumococcal 13-valent vaccine 07/10/15 Given Zoster Vaccine Live 7 09/13/08 Given diphtheria-tetanus toxoids (DT) 10/29/03 Given 1Admin Note: [facility] 2Admin Note: [facility] [place] 3Admin Note: [facility] [place] 4Result Comment: [07/10/2015] [facility] 5Admin Note: [place] 6Admin Note: [place] 7Admin [...] 03/11/23 9:55:00 EDT, Route to Pharmacy Electronically, [facility] #[id number], Partial fill upon patient request if the prescription is for a schedule II opi... Start Date: 03/11/23 Status: Ordered gabapentin 300 mg oral capsule 300 mg, 1, capsule, By Mouth, 3 times a day, # 270 capsule, Refills 3, Tot. Refills 3, Maintenance,11/17/22 8:37:00 EDT, Route to Pharmacy Electronically, [facility] #[id number], Partial fill upon patient request if the [...] 13:09:00 EDT, Route to Pharmacy Electronically, [facility],Partial fill upon patient request if the prescripti... Start Date: 02/12/23 Status: Ordered lisinopril 5 mg oral tablet 5 mg, 1, tablet, By Mouth, Daily, # 30 tablet, Refills 2, Tot. Refills 2, Maintenance, 03/11/23 10:00:00 EDT, Route to Pharmacy Electronically, [facility] #[id number], Partial fill upon patient request if the [...] Care Team Personnel Name: Saadia Abdalla Position: [facility] Onco RN Member Role: Primary Care Nurse Name: Janna Sibley MD Position: [facility] Physician - Primary Care Member Role: PCP Address: Address: [address] [place] [id number] Name: Aislinn Mccauley RN Position: [facility] RN Member Role: Primary Care Nurse Care Team Related Persons Name: AMIRA MURPHY Address: [address] [place] Address: [facility] 0 Name: AMIRA MURPHY Address: home [address] [place], [place] Name: AMIRA MURPHY Address: [place] [address] [facility] [address] Name: TITO MURPHY Address: home [address] [place] [address] [place] Name: TITO MURPHY Address: [place] [address] [place], [place] Name: TITO MURPHY Address: [place] [place] [address]
--- OUTSIDE RECORDS SUMMARY | 2023-12-27 06:45 | XMS_ITS | Continuity of Care Document ---
Author Organization [facility] Address [address], [address], [address] [place] [address]- Care Team Providers Care Documentation Engineer Name Role Phone Toñito COLE, Dereckwvumedicine harrison community hospitaljuan Primary Care Physician Encounter [facility] [place] Date(s): 07/14/23 - 08/13/23 [facility] [address], [address], [address] [place] [address]- Allergies, Adverse Reactions, Alerts Substance Reaction Severity [...] virus vaccine, inactivated 5 04/26/09 Gi henri [id number] 12y+ bivalent booster vax 03/12/22 Recorded SARS-CoV-2 mRNA (cboxxkh-duwh-jzxip) vax 10/17/21 Recorded SARS-CoV-2 (COVID-19) mRNA BNT-162b2 vac 03/28/21 Recorded SARS-CoV-2 (COVID-19) mRNA BNT-162b2 vac 08/15/20 Given pneumococcal 23-valent vaccine 09/24/16 Given pneumococcal 23-valent vaccine 6 10/24/04 Given pneumococcal 13-valent vaccine 07/10/15 Given Zoster Vaccine Live 7 09/13/08 Given diphtheria-tetanus toxoids (DT) 10/29/03 Given 1[facility] Note[facility] 2Admin Note: [facility] [place] 3Admin Note: [facility] pallavi [place] 4Result Comment: [07/10/2015] chelo rivera 5Admin Note: [...] Refills, Maintenance, 01/15/22 16:23:00 EDT, Tablet, [facility], Partial fill upon patient request [...] Maintenance,11/17/22 8:37:00 EDT, Route to Pharmacy Electronically, [facility] #[id number], Partial fill upon patient request if the [...] 13:08:00 EDT, Route to Pharmacy Electronically, [facility], 159, cm, 01/20/23 8:23:00 EDT, [...] Required Details, Route to Pharmacy Electronically, [facility], 159, cm, 03/11/23 9:45:00 EDT, Height, 81, kg, 0... Start Date: 05/17/23 Status: Ordered Nitrostat 0.3 mg sublingual tablet 1 tablet = 0.3 mg, Sublingual, Every 5 minutes, PRN as needed for chest pain, not to exceed 3 doses/15 min--if pain persists, seek medical attention, # 25 tablet, 0 Refills, Maintenance, 06/16/23 10:10:00 EST, Tablet, [facility] #[id number], Part... Start Date: 06/16/23 Status: Ordered omeprazole 20 mg oral delayed release tablet 1 tablet = 20 mg, By Mouth, 2 times a day, # 180 tablet, 1 Refills, Maintenance, 07/20/23 13:18:00 EST, EC Tablet, [facility], Partial fill upon patient request [...] Care Team Personnel Name: Saadia Abdalla Position: [facility] Onco RN Member Role: Primary Care Nurse Name: Janna Sibley MD Position: [facility] Physician - Primary Care Member Role: PCP Address: Address: [address] [place] [address] [address] [place], [place] [address] Name: Aislinn Mccauley RN Position: [facility] RN Member Role: Primary Care Nurse Care Team Related Persons Name: AMIRA MURPHY Address: home [address] [place] [address] Name: AMIRA MURPHY Address: [address] [facility] [address] Name: AMIRA MURPHY Address: home [address] [place] [address] [place] Address: temporary 0 Name: TITO MURPHY Address: [address] [place] [address] [place] Name: TITO MURPHY Address: [address] [place] [address] Name: TITO MURPHY Address: home [address] [place] [address]
--- OUTSIDE RECORDS SUMMARY | 2023-12-27 06:45 | XMS_ITS | Continuity of Care Document ---
Author Organization [facility] Address [address] [place] [address]- Care Team Providers Care Deputy Sheriff Building Guard Name Role Phone Colt LANDIN, Jud Guzman Primary Care Physicia n En[place] [facility] [place](s): 04/21/21 - 05/21/21 [facility] [address] [place] [address]- Attending Physician: Freddie Mcgrath Admitting Physician: Admtr, Freddie Referring Physician: Admtr, Ar8 Allergies, Adverse Reactions, [...] Joseph Phelan [place] 3Admin Note: Joseph Rivera [facility] pallavi ferrell 4Result Comment: [07/10/2015] zachcece rivera [...] [facility], Partial fill upon patient request, [address], 04/21/21 16:52:00 E... Start Date: 05/06/21 Status: [...]
--- OUTSIDE RECORDS SUMMARY | 2023-12-27 06:45 | XMS_ITS | Continuity of Care Document ---
Author Organization [facility] Address [address] [facility], [address]r d Floor, [address] [place] [phone]- Care Team Providers Care Ceramic Saw Tender Name Role Phone Lobito Murguia DO Primary Care Physician Encounter [facility] [place] Date(s): 12/06/19 - 02/18/20 [facility] [address] [place], 3rd Floor, [address] [place] [phone]- [facility] Attending Physician: Delores Zamora MD Admitting Physician: Delores Zamora MD Referring Physician: Lobito Murguia DO Allergies, Adverse Reactions, Alerts Substance Reaction Severity [...] 3Admin Note: Joseph Rivera [facility] 4Result Comment: [07/10/2015] joseph rivera 5Admin Note: [place] 6Admin Note: [place] 7Admin Note: diluent lot [id number] Exp 08/28 Medications amLODIPine 5 mg oral tablet 5 mg, 1, tablet, By Mouth, Daily, # 30 tablet, Refills 0, Tot. Refills 0, Maintenance, 12/26/19 14:29:00 EDT, Route to Pharmacy Electronically, [facility] #[id number], 160, cm, 11/29/19 15:13:00EDT, Height, 75, kg, 12/26/19 11:32:00 EDT, Dry Weight Start Date: 12/26/19 Status: Ordered aspirin 81 mg oral delayed release tablet 81 mg, By Mouth, Daily, # 30 tablet, Refills 0, Tot. Refills 0, Maintenance, 11/29/19 15:53:00 EDT,Route to Pharmacy Electronically, [facility] #[id number], 160, cm, 11/29/19 15:13:00 EDT, Height, 78.7, kg, 11/28/19 16:01:00 EDT, Dry Weight Start Date: 11/29/19 Status: Ordered calcium and vitamin D combination 315 mg-200 iu oral tablet 1 tablet, By Mouth, 2 times a day, # 120 tablet, 0 Refills, Maintenance, Tablet Start Date: 05/07/13 Status: Ordered chlorthalidone 25 mg oral tablet 12.5 mg, 0.5, tablet, By Mouth, Daily, # 45 tablet, Refills 3, Tot. Refills 3, Maintenance, 03/09/19 11:53:31 EDT, Route to Pharmacy Electronically, [facility] Start Date: 03/09/19 Stop Date: 03/03/20 Status: Ordered CPAP Machine See Instructions, # 1 each, Refills 12, Tot. Refills 12, Maintenance, DX. SEBASTIAN CPAP at 12-16 cm H20 with heated humidifier and airfit F20 mefium full face mask please include tubings and refills, 02/25/17 13:27:26, Compound Start Date: 02/25/17 Status: Ordered gabapentin 100 mg oral capsule 100 mg, 1, capsule, By Mouth, 3 times a day, take with 300mg capsule for 400mg TID, # 270 capsule, Refills 1, Tot. Refills 1, Maintenance, 01/19/20 14:53:00 EDT, Route to Pharmacy Electronically, [facility], 160, cm, 11/29/19 15:13:... Start Date: 01/19/20 Status: Ordered gabapentin 300 mg oral capsule 300 mg, 1, capsule, By Mouth, 3 times a day, # 42 capsule, Refills 0, Tot. Refills 0, Maintenance, 02/09/20 17:47:00 EDT, Route to Pharmacy Electronically, [facility] #[id number], 160, cm, 11/29/19 15:13:00 EDT, Height, 75, kg, 12/26/19 11:32:00... Start Date: 02/09/20 Stop Date: 02/23/20 Status: Ordered lamotrigine 100 mg oral tablet 100 mg, 1, tablet, By Mouth, 2 times a day, # 180 tablet, Refills 1, Tot. Refills 1, Maintenance, 01/19/20 14:44:00 EDT, Route to Pharmacy Electronically, [facility], New increaseddose, 160, cm, 11/29/19 15:13:00 EDT, Height, 75, k... Start Date: 01/19/20 Status: Ordered lamotrigine 25 mg oral tablet 25 mg, 1, tablet, By Mouth, 2 times a day, Take with 100mg tab for total daily dose of 125mg twice daily, # 180 tablet, Refills 1, Tot. Refills 1, Maintenance, 01/19/20 14:44:00 EDT, Route to Pharmacy Electronically, [facility], 160... Start Date: 01/19/20 Status: Ordered Lipitor 40 mg oral tablet 1 tablet = 40 mg, By Mouth, Daily at bedtime, # 30 tablet, 0 Refills, Maintenance, 12/26/19 14:30:00 EDT, Tablet, [facility] #[id number], 160, cm, 11/29/19 15:13:00 EDT, Height, 75, kg, 12/25/2010:32:00 EDT, Dry Weight Start Date: 12/26/19 Status: Ordered omeprazole 20 mg oral enteric coated capsule 1 capsule = 20 mg, By Mouth, 2 times a day, # 180 capsule, 0 Refills, Maintenance, 06/06/19 11:07:22 EST, [facility], 160, cm, 04/12/19 14:14:39 EDT, Height, 91, kg, 02/16/18 1:18:19 EDT, Dry Weight Start Date: 06/06/19 Status: Ordered Sinemet 25 mg-100 mg oral tablet 1 tablet, By Mouth, 3 times a day before meals, take at 7 am, 11 am and 3 pm. No food 1/2 hour before and after taking it., # 90 tablet, 3 Refills, Maintenance, 01/19/20 14:43:00 EDT, Tablet, [facility], 1 tablet By Mouth 3 times a... Start Date: 01/19/20 Status: Ordered Problem List Condition Effective Dates Status Health Status Inform ant Anxiety disorder(Confirmed) Active Asthma(Confirmed) Active Bilateral hearing loss(Confirmed) 06/01/13 Active Fibromyalgia(Confirmed) Active Functional heart murmur(Confirmed) 04/24/19 Active Gastroesophageal reflux dise ase with hiatal hernia(Confirmed) Active Hypercholesterolemia(Confirmed) Active Hypertension(Confirmed) Active Malignant melanoma(Confirmed) Active MCI (mild cognitive impairment)(Confirmed) Active Obstructive sleep apnea(Confirmed) Active Chronic polyneuropathy(Confirmed) Active Lumbar spinal stenosis(Confirmed) Active Subarachnoid hemorrhage foll owing injury without open intracranial wound AND with no loss of consciousness(Confirmed) Active Urge urinary incontinence(Confirmed) Active Social History Social History Type Response Smoking Status Never smoker entered on: 05/23/14 Sex Female
--- OUTSIDE RECORDS SUMMARY | 2023-12-27 06:45 | XMS_ITS | Continuity of Care Document ---
Author Organization [facility] Address [address] [place] [address]- Care Team Providers Care Business Planner Name Role Phone Janna Sibley MD Primary Care Physician Encounter [facility] [place] Date(s): 07/22/22 - 07/23/[address] [address]- Encounter Diagnosis Fall(Final) - 07/23/22 Contusion of left arm(Final) - 07/23/22 Discharge Disposition: A-D/C Home Attending Physician: Luanne Bhakta MD Admitting Physician: Luanne Bhakta MD Referring Physician: Not on Staff, Referring MD Allergies, Adverse Reactions, Alerts Substance Reaction [...] virus vaccine, inactivated 5 04/26/09 Gi henri [id number] 12y+ bivalent booster vax 03/12/22 Recorded SARS-CoV-2 mRNA (feaskxn-[id number]-eoodt) vax 10/17/21 Recorded SARS-CoV-2 (COVID-19) mRNA BNT-162b2 vac 03/28/21 Recorded pneumococcal 23-valent vaccine 09/24/16 Given pneumococcal 23-valent vaccine 6 10/24/04 Given pneumococcal 13-valent vaccine 07/10/15 Given Zoster Vaccine Live 7 09/13/08 Given diphtheria-tetanus toxoids (DT) 10/29/03 Given 1Admin Note: [facility] 2Admin Note: Joseph Phelan [place] 3Admin Note: Joseph Rivera [facility] pallavi ferrell 4Result Comment: [07/10/2015] joseph [...] EDT, Tablet Start Date: 04/15/20 Status: Ordered cephalexin monohydrate 500 mg oral tablet 1 tablet = 500 mg, By Mouth, 4 times a day, for 7 days, # 28 tablet, 0 Refills, Acute 07/30/22 3:14:00 EST, 07/23/22 3:14:00 EST, Tablet, [facility] #[id number], Partial fill upon patient request if the prescription is for a schedule II opioid dr... Start Date: 07/23/22 Stop Date: 07/30/22 Status: Ordered chlorthalidone 25 mg oral tablet [...] infection., 10/04/21 14:30:00 EDT, Supply, 159, cm, /... Start Date: 10/04/21 Status: Ordered PreserVision AREDS [...] Confirmed Active Urge urinary incontinence Confirmed Active Results Radiology Reports * Exam Date Time Procedure Performing Provider Status 07/22/22 10:[address] Cervical Spine W/O Contrast Saundra Briscoe; Auth (Verified) Notes: (CT Cervical Spine W/O Contrast) Reason For Exam: Neck trauma, dangerous injury mechanism;Other: RESULT: CT Cervical Spine W/O Contrast CT Head/Brain W/O Contrast, CT Cervical Spine W/O Contrast INDICATION: Hx of Present Illness: Pt wheeled to room. Pt reports falling at home and striking headon fireplace. Lac noted to L eyebrow.; Reason: Other:; Head trauma, mod-severe; Clinical Question(s): Hematoma; Order Comment: TECHNIQUE: Noncontrast head CT using axial technique was reconstructed in axial and coronal planes.Noncontrast spiral CT through the cervical spine was formatted in 3 planes. Automatic tube modulation was used for the cervical spine and iterative dose reconstruction was used for both the head and cervical spine to optimize scan parameters and image quality. CTDIvol Body: 12.10 mGy, DLP Body: 346 mGy*cm. CTDIvol Head: 39.90 mGy, DLP Head: 671 mGy*cm. COMPARISON: 12/24/2019 FINDINGS: Biomedical Engineering Aide View Findings, Lines and Tubes: None. BRAIN AND EXTRA-AXIAL SPACES: No parenchymal hemorrhage, midline shift, or mass effect. Cherry-white matter differentiation is wellpreserved. No acute infarct. Chronic left frontal infarct. Moderate prominence of the ventricles and sulci consistent with parenchymal volume loss. Mild low-density white matter changes. No subarachnoid hemorrhage. No subdural or epidural collection. CALVARIUM, SKULL BASE, AND SOFT TISSUES: No fractures or suspicious bony lesions. The paranasal sinuses and mastoid air cells are clear. Visualized orbits and globes are intact. The extracranial soft tissues are unremarkable. CERVICAL SPINE: No fracture. No acute osseous abnormalities. Normal alignment. No locked or perched facet. Moderate multilevel degenerative disc space narrowingand end plate irregularity. OTHER BONES: No acute abnormality. CERVICAL SOFT TISSUES AND LUNG APICES: Normal soft tissues. Visualized lung apices are clear. IMPRESSION: No acute abnormality of the head or cervical spine. WSN: [id number] Ordering Physician: Anson May Dictated By: Pasha Garcia MD Dictated Date/Time: 07/22/22 11:01 p Reviewed By: Pasha Garcia MD Signed By: Pasha Garcia MD Signed Date/Time: 07/22/22 11:01 pm Transcribed By: STEPHANIE Transcribed Date/Time: 07/22/22 10:56 pm * Exam Date Time Procedure Performing Provider Status 07/22/22 10:[address] Head/Brain W/O Contrast Hawa Briscoe; Auth (Verified) Notes: (CT Head/Brain W/O Contrast) Reason For Exam: Head trauma, mod-severe;Other: RESULT: CT Head/Brain W/O Contrast CT Head/Brain W/O Contrast, CT Cervical Spine W/O Contrast INDICATION: Hx of Present Illness: Pt wheeled to room. Pt reports falling at home and striking headon fireplace. Lac noted to L eyebrow.; Reason: Other:; Head trauma, mod-severe; Clinical Question(s): Hematoma; Order Comment: TECHNIQUE: Noncontrast head CT using axial technique was reconstructed in axial and coronal planes.Noncontrast spiral CT through the cervical spine was formatted in 3 planes. Automatic tube modulation was used for the cervical spine and iterative dose reconstruction was used for both the head and cervical spine to optimize scan parameters and image quality. CTDIvol Body: 12.10 mGy, DLP Body: 346 mGy*cm. CTDIvol Head: 39.90 mGy, DLP Head: 671 mGy*cm. COMPARISON: 12/24/2019 FINDINGS: Biomedical Engineering Aide View Findings, Lines and Tubes: None. BRAIN AND EXTRA-AXIAL SPACES: No parenchymal hemorrhage, midline shift, or mass effect. Cherry-white matter differentiation is wellpreserved. No acute infarct. Chronic left frontal infarct. Moderate prominence of the ventricles and sulci consistent with parenchymal volume loss. Mild low-density white matter changes. No subarachnoid hemorrhage. No subdural or epidural collection. CALVARIUM, SKULL BASE, AND SOFT TISSUES: No fractures or suspicious bony lesions. The paranasal sinuses and mastoid air cells are clear. Visualized orbits and globes are intact. The extracranial soft tissues are unremarkable. CERVICAL SPINE: No fracture. No acute osseous abnormalities. Normal alignment. No locked or perched facet. Moderate multilevel degenerative disc space narrowingand end plate irregularity. OTHER BONES: No acute abnormality. CERVICAL SOFT TISSUES AND LUNG APICES: Normal soft tissues. Visualized lung apices are clear. IMPRESSION: No acute abnormality of the head or cervical spine. WSN: [id number] Ordering Physician: Anson May Dictated By: Pasha Garcia MD Dictated Date/Time: 07/22/22 11:01 p Reviewed By: Pasha Garcia MD Signed By: Pasha Garcia MD Signed Date/Time: 07/22/22 11:01 pm Transcribed By: STEPHANIE Transcribed Date/Time: 07/22/22 10:56 pm Vital Signs Most recent to oldest [Reference Range]: 1 2 3 Oxygen Saturation [94-100 %] 99 % (07/23/22 3:27 AM) 99 % (07/23/22 12:12 AM) 100 % (07/22/22 10:20 PM) Pulse Rate [55-90 bpm] 79 bpm (07/23/22 3:27 AM) 80 bpm (07/23/22 12:12 AM) 81 bpm (07/22/22 10:20 PM) Blood Pressure [90-138/55-84 mm Hg] 153/89mm Hg *H* (07/23/22 3:27 AM) 129/79mm Hg (07/23/22 12:12 AM) 169/73mm Hg *H* (07/22/22 10:20 PM) Respiratory Rate [16-30 br/min] 16 br/min (07/23/22 3:27 AM) 17 br/min (07/23/22 12:12 AM) 16 br/min (07/22/22 10:20 PM) Temperature [96.8-100.4 DegF] 97.9 DegF (07/22/22 10:20 PM) 97.7 DegF (07/22/22 10:03 PM) Mode of Delivery (Oxygen) Room air (07/23/22 3:27 AM) Room air (07/23/22 12:12 AM) Room air (07/22/22 10:20 PM) Blood pressure sites Arm, left (07/22/22 10:20 PM) Arm, left (07/22/22 10:03 PM) Temperature Route Oral (07/22/22 10:20 PM) Oral (07/22/22 10:03 PM) Social History Social History Type Response Smoking Status Never smoker entered on: 05/23/14 Sex Female EKG study * Event Display: EKG Authored Date: CT Cervical spine WO contrast * [facility] , CIS S: TRANSCRIBE Pasha Garcia MD S: VERIFY Event Display: Result: Authored Date: [id number] CT Head/Brain W/O Contrast, CT Cervical Spine W/O Contrast INDICATION: Hx of Present Illness: Pt wheeled to room. Pt reports falling at home and striking headon fireplace. Lac noted to L eyebrow.; Reason: Other:; Head trauma, mod-severe; Clinical Question(s): Hematoma; Order Comment: TECHNIQUE: Noncontrast head CT using axial technique was reconstructed in axial and coronal planes.Noncontrast spiral CT through the cervical spine was formatted in 3 planes. Automatic tube modulation was used for the cervical spine and iterative dose reconstruction was used for both the head and cervical spine to optimize scan parameters and image quality. CTDIvol Body: 12.10 mGy, DLP Body: 346 mGy*cm. CTDIvol Head: 39.90 mGy, DLP Head: 671 mGy*cm. COMPARISON: 12/24/2019 FINDINGS: Biomedical Engineering Aide View Findings, Lines and Tubes: None. BRAIN AND EXTRA-AXIAL SPACES: No parenchymal hemorrhage, midline shift, or mass effect. Cherry-white matter differentiation is wellpreserved. No acute infarct. Chronic left frontal infarct. Moderate prominence of the ventricles and sulci consistent with parenchymal volume loss. Mild low-density white matter changes. No subarachnoid hemorrhage. No subdural or epidural collection. CALVARIUM, SKULL BASE, AND SOFT TISSUES: No fractures or suspicious bony lesions. The paranasal sinuses and mastoid air cells are clear. Visualized orbits and globes are intact. The extracranial soft tissues are unremarkable. CERVICAL SPINE: No fracture. No acute osseous abnormalities. Normal alignment. No locked or perched facet. Moderate multilevel degenerative disc space narrowingand end plate irregularity. OTHER BONES: No acute abnormality. CERVICAL SOFT TISSUES AND LUNG APICES: Normal soft tissues. Visualized lung apices are clear. IMPRESSION: No acute abnormality of the head or cervical spine. WSN: [id number] Ordering Physician: Anson May Dictated By: Pasha Garcia MD Dictated Date/Time: 07/22/22 11:01 p Reviewed By: Pasha Garcia MD Signed By: Pasha Garcia MD Signed Date/Time: 07/22/22 11:01 pm Transcribed By: STEPHANIE Transcribed Date/Time: 07/22/22 10:[address] Head WO contrast * [facility] , CIS S: TRANSCRIBE Pasha Garcia MD: VERIFY Event Display: Result: Authored Date: [id number] CT Head/Brain W/O Contrast, CT Cervical Spine W/O Contrast INDICATION: Hx of Present Illness: Pt wheeled to room. Pt reports falling at home and striking headon fireplace. Lac noted to L eyebrow.; Reason: Other:; Head trauma, mod-severe; Clinical Question(s): Hematoma; Order Comment: TECHNIQUE: Noncontrast head CT using axial technique was reconstructed in axial and coronal planes.Noncontrast spiral CT through the cervical spine was formatted in 3 planes. Automatic tube modulation was used for the cervical spine and iterative dose reconstruction was used for both the head and cervical spine to optimize scan parameters and image quality. CTDIvol Body: 12.10 mGy, DLP Body: 346 mGy*cm. CTDIvol Head: 39.90 mGy, DLP Head: 671 mGy*cm. COMPARISON: 12/24/2019 FINDINGS: Biomedical Engineering Aide View Findings, Lines and Tubes: None. BRAIN AND EXTRA-AXIAL SPACES: No parenchymal hemorrhage, midline shift, or mass effect. Cherry-white matter differentiation is wellpreserved. No acute infarct. Chronic left frontal infarct. Moderate prominence of the ventricles and sulci consistent with parenchymal volume loss. Mild low-density white matter changes. No subarachnoid hemorrhage. No subdural or epidural collection. CALVARIUM, SKULL BASE, AND SOFT TISSUES: No fractures or suspicious bony lesions. The paranasal sinuses and mastoid air cells are clear. Visualized orbits and globes are intact. The extracranial soft tissues are unremarkable. CERVICAL SPINE: No fracture. No acute osseous abnormalities. Normal alignment. No locked or perched facet. Moderate multilevel degenerative disc space narrowingand end plate irregularity. OTHER BONES: No acute abnormality. CERVICAL SOFT TISSUES AND LUNG APICES: Normal soft tissues. Visualized lung apices are clear. IMPRESSION: No acute abnormality of the head or cervical spine. WSN: [id number] Ordering Physician: Anson May Dictated By: Pasha Garcia MD Dictated Date/Time: 07/22/22 11:01 p Reviewed By: Pasha Garcia MD Signed By: Pasha Garcia MD Signed Date/Time: 07/22/22 11:01 pm Transcribed By: STEPHANIE Transcribed Date/Time: 07/22/22 10:56 pm Patient Care team information Care Team Personnel Name: Saadia Abdalla Position: [facility] Onco RN Member Role: Primary Care Nurse Name: Janna Sibley MD Position: [facility] Primary Care Physician Member Role: PCP Address: Address: [address] [place] [address] [place], [place] [address] Name: Nasrin Graf RN Position: [facility] AMB Nurse Member Role: Primary Care Nurse Name: Aislinn Mccauley RN Position: [facility] RN Member Role: Primary Care Nurse Name: Nataly Rangel Position: [facility] ED TA [facility] Member Role: Academic Success Coordinator Name: Shirley Prabhakar RN Position: [facility] ED RN W/OE and Tasks Member Role: Patient Care Provider Name: Patty Rodriguez RN Position: [facility] ED RN W/OE and Tasks Member Role: Patient Care Provider Name: Forest Schaffer Position: [facility] Associate Professional Member Role: ED Physician Rental Boats Caretaker Address: Address: [address] [place] [address] [place] [address]- [place] Name: Yony COLE, Luanne Byrne Position: [facility] ED Medicine MD Member Role: ED Attending Physician Address: Address: [address] [place] [address]- Care Team Related Persons Name: AMIRA MURPHY Address: home [address] [place] [address] Name: AMIRA MURPHY Address: home [address] [place] [address] [place] Address: temporary 0 Name: AMIRA MURPHY Address: home [address] [place] [id number] Name: TITO MURPHY Address: home [address] [place] [address] Name: TITO MURPHY Address: home [address] [place] [address] Name: TITO MURPHY Address: home [address] [place] [address]
--- OUTSIDE RECORDS SUMMARY | 2023-12-27 06:45 | XMS_ITS | Continuity of Care Document ---
Author Organization [facility] Address [address] [place] [address]- Care Team Providers Care Branch Customer Service Representative Name Role Phone Toñito COLE, [facility] Primary Care Physician Encounter [facility] [place] Date(s): 12/25/22 - 01/24/23 [facility] [address] [place] [address]- Allergies, Adverse Reactions, Alerts Substance Reaction Severity [...] virus vaccine, inactivated 5 04/26/09 Gi henri [id number] 12y+ bivalent booster vax 03/12/22 Recorded SARS-CoV-2 mRNA (omoyeiv-[id number]) vax 10/17/21 Recorded SARS-CoV-2 (COVID-19) mRNA BNT-162b2 vac 03/28/21 Recorded SARS-CoV-2 (COVID-19) mRNA BNT-162b2 vac 08/15/20 Given pneumococcal 23-valent vaccine 09/24/16 Given pneumococcal 23-valent vaccine 6 10/24/04 Given pneumococcal 13-valent vaccine 07/10/15 Given Zoster Vaccine Live 7 09/13/08 Given diphtheria-tetanus toxoids (DT) 10/29/03 Given 1Admin Note: [facility] 2Admin Note: [facility] [place] 3Admin Note: [facility] [place] 4Result Comment: [07/10/2015] zache nicole 5Admin Note: [...] Maintenance,11/17/22 8:37:00 EDT, Route to Pharmacy Electronically, [facility] #[id number], Partial fill upon patient request if the prescription is for a mariana... Start Date: 11/17/22 Status: Ordered Gemtesa 75 mg oral tablet 1 tablet, By Mouth, Daily, # 30 tablet, 11 Refills, [facility], 159, cm, 12/10/21 9:01:00 EDT, Height, 81, kg, 12/10/21 9:01:00 EDT, Dry Weight Start Date: 02/05/22 Status: Ordered Home Blood Pressure Monitor See [...] 11/17/22 8:37:00 EDT, Route to Pharmacy Electronically, [facility] #[id number], 159, cm, 10/01/22 8:32:00 EDT, Height, 81, kg, 12/10/21 9:01:00 EDT, Dry Weight Start Date: 11/17/22 Status: Ordered lamotrigine 25 mg oral tablet 50 mg, 2, tablet, By Mouth, 2 times a day, dose increase, # 360 tablet, Refills 3, Tot. Refills 3, Maintenance, 11/17/22 8:38:00 EDT, Route to Pharmacy Electronically, [facility] #[id number], Partial fill upon patient request if the [...] Care Team Personnel Name: Saadia Abdalla Position: [facility] Onco RN Member Role: Primary Care Nurse Name: Janna Sibley MD Position: [facility] Physician - Primary Care Member Role: PCP Address: Address: [address] [place] [address] 3rd [place] [address]- Name: Nasrin Graf RN Position: [facility] AMB Nurse Member Role: Primary Care Nurse Name: Aislinn Mccauley RN Position: [facility] RN Member Role: Primary Care Nurse Care Team Related Persons Name: AMIRA MURPHY Address: [address] [phone] Name: AMIRA MURPHY Address: [place] [address] [place] [address] [place] Address: [facility] Name: AMIRA MURPHY Address: home [address] [place], [place] Name: TITO MURPHY Address: [address] [place] [address] [place] Name: TITO MURPHY Address: [address] [address] Name: TITO MURPHY Address: [address] [address]
--- OUTSIDE RECORDS SUMMARY | 2023-12-27 06:45 | XMS_ITS | Continuity of Care Document ---
Author Organization [facility] Adult Address [address] [place] [address]- Care Team Providers Care Event Coordinator Marketing And Sales Name Role Phone Toñito COLE, Dereckcarolinas [facility] Primary Care Physician Encounter [facility] [place] Date(s): 09/17/23 - 10/17/[address] [address]- Allergies, Adverse Reactions, Alerts Substance Reaction Severity [...] virus vaccine, inactivated 5 04/26/09 Gi henri [id number] 12y+ bivalent booster vax 03/12/22 Recorded SARS-CoV-2 mRNA (lnhumzo-izkj-jtzfx) vax 10/17/21 Recorded SARS-CoV-2 (COVID-19) mRNA BNT-162b2 vac 03/28/21 Recorded SARS-CoV-2 (COVID-19) mRNA BNT-162b2 vac 08/15/20 Given pneumococcal 23-valent vaccine 09/24/16 Given pneumococcal 23-valent vaccine 6 10/24/04 Given pneumococcal 13-valent vaccine 07/10/15 Given Zoster Vaccine Live 7 09/13/08 Given diphtheria-tetanus toxoids (DT) 10/29/03 Given 1[facility] Note[facility] 2[facility] [place] 3Admin Note: [facility] [place] 4Result Comment: [07/10/2015] [facility] 5Admin Note: Pallavi 6Admin Note: Pallavi [...] 13:21:00 EDT, Aerosol, Route to Pharmacy Electronically, [id number], [facility]... Start Date: 10/13/23 Stop Date: [...] WEEK, # 42.5 Gm, 2 Refills, Maintenance, 09/17/23 9:57:00 EDT, [facility], 160, cm, 09/16/23 15:17:00 EDT, Height, 75.9, kg, 06/15/23 11:38:00 EST, Dry Weight Start Date: 09/17/23 Status: Ordered fluticasone-salmeterol 250 mcg-50 mcg inhalation powder 1, puffs, Inhalation, 2 times a day, Urgent rinse mouth and throat after use, # 3 each, Refills 3, Tot. Refills 3, Maintenance, 10/13/23 13:21:00 EDT, Powder, Route to Pharmacy Electronically, [id number], [facility]... Start Date: 10/13/23 Stop Date: 10/07/24 Status: Ordered gabapentin 300 mg oral capsule 300 mg, 1, capsule, By Mouth, 3 times a day, EMERGENCY SUPPLY UNTIL MAIL ORDER COMES IN, # 30 capsule, Refills 0, Tot. Refills 0, Maintenance, 09/17/23 16:29:00 EDT, Route to Pharmacy Electronically,[id number], Partial fill upon viral... Start Date: 09/17/23 Status: Ordered gabapentin 300 mg oral capsule [...] 0 Refills, Maintenance, 06/16/23 10:10:00 EST, Tablet, [facility] #[id number], Part... Start Date: 06/16/23 Status: Ordered omeprazole [...] hernia Confirmed Active H/O Malignant melanoma Confirmed 2014 Active Hypercholesterolemia Confirmed Active Hypertension Confirmed Active [...] Primary Care Member Role: PCP Address: Address: [address] [place] [address] [address] [place], [place] [address] Name: Aislinn Mccauley RN Position: [facility] RN Member Role: Primary Care Nurse Care Team Related Persons Name: AMIRA MURPHY Address: home [address] [place] [address] [id number] Name: AMIRA MURPHY Address: home [address] [place] [address] Name: AMIRA MURPHY Address: home [address] [place] [address] [place] Address: temporary 0 Name: TITO MURPHY Address: home [address] [place] [address] [place] Name: TITO MURPHY Address: home [address] [place] [address] Name: TITO MURPHY Address: home [address] [place] [address]
--- OUTSIDE RECORDS SUMMARY | 2023-12-27 06:45 | XMS_ITS | Continuity of Care Document ---
Author Organization [facility] Address [address] [place] [address]- Care Team Providers Care Enrollment Clerk Name Role Phone Colt LANDIN, Jud Guzman Primary Care Physicia n Encounter [facility] [place] Date(s): 12/06/20 - 01/05/21 [facility] [address] [place] [address]- Attending Physician: Freddie Mcgrath Admitting Physician: AdmFreddie [...] Joseph Phelan [place] 3Admin Note: Joseph Rivera [facility] pallavi ferrell 4Result Comment: [07/10/2015] joseph [...] day, # 180 tablet, 0 Refills, Maintenance, 10/15/20 13:48:00 EDT, EC Tablet, [facility], Partial fill upon patient request if the prescriptionis for a schedule II opioid drug., 159, cm, ... Start Date: 10/15/20 Stop Date: 01/13/21 Status: Ordered PreserVision AREDS 2 oral capsule By Mouth, Daily, 0 Refills, Maintenance, 04/15/20 10:06:00 EDT Start Date: 04/15/20 Status: Ordered sertraline 25 mg oral tablet 1 tablet = 25 mg, By Mouth, Daily, # 30 tablet, 1 Refills, Maintenance, 10/30/20 13:21:00 EDT, Tablet, [id number], Partial fill upon patient request if the prescription is for a schedule II opioid drug., 159, cm, 10/30/20 12:49:00 EDT... Start Date: 10/30/20 Status: Ordered Problem List Condition Effective Dates [...] recent to oldest [Reference Range]: 1 Height 160.00 cm (05/18/12 3:36 PM) Weight 87.7 kg (05/18/12 3:36 PM) Body Mass Index [18.50-24.99] 34.26 *>HHI* (05/18/12 3:36 PM) Blood Pressure [90-138/55-84 mm Hg] 140/ 86mm Hg *H* (05/18/12 3:36 PM) Temperature [96.8-100.4 DegF] 98.1 DegF (05/18/12 3:36 PM) Blood pressure sites Arm, right (05/18/12 3:36 PM) Temperature Route Oral (05/18/12 3:36 PM) Dry Weight 87.7 kg (05/18/12 3:36 PM) Weight Obtained Via Standing scale (05/18/12 3:36 PM) Dry Weight Obtained Via Standing scale (05/18/12 3:36 PM) Social History Social History Type Response Smoking Status Never smoker entered on: 05/23/14 Sex Female
--- OUTSIDE RECORDS SUMMARY | 2023-12-27 06:45 | XMS_ITS | Continuity of Care Document ---
Author Organization [facility] Address [address] [place] [address]- Care Team Providers Care Supervisor Receiving And Processing Name Role Phone Colt LANDIN, Jud Guzman Primary Care Physicia n Encounter [facility] [place] Date(s): 02/07/21 - 03/09/21 [facility] [address] [place] [address]- Attending Physician: Freddie Mcgrath Admitting Physician: Freddie Mcgrath Referring Physician: Freddie Mcgrath Allergies, Adverse Reactions, Alerts Substance Reaction Severity [...] [facility]: [facility] 2Admin Note: [facility] ROMELIA Phelan [place] 3Admin Note: Zache Romelia [facility] pallavi ferrell 4Result Comment: [07/10/2015] zachcece [...] prescriptionis for a schedule II opioid drug., 159ginette, ... Start Date: 10/15/20 Stop Date: 01/13/21 Status: Ordered PreserVision AREDS 2 oral capsule By Mouth, Daily, 0 Refills, Maintenance, 04/15/20 10:06:00 EDT Start Date: 04/15/20 Status: Ordered sertraline 25 mg oral tablet 1 tablet = 25 mg, By Mouth, Daily, # 30 tablet, 1 Refills, Maintenance, 10/30/20 13:21:00 EDT, Tablet, [facility] #[id number], Partial fill upon patient request if the prescription is for a schedule II opioid drug., 159ginette, 10/30/20 12:49:00 EDT... Start Date: 10/30/20 Status: [...]
--- OUTSIDE RECORDS SUMMARY | 2023-12-27 06:45 | XMS_ITS | Continuity of Care Document ---
Author Organization [facility] Adult Address [address] [place] [address]- Care Team Providers Care Predatory Animal Trapper Name Role Phone Toñito COLE, Dereckthe surgical hospital at southwoodsjuan Primary Care Physician Encounter [facility] Date(s): 09/02/23 - 10/02/[address] [address]- Allergies, Adverse Reactions, Alerts Substance Reaction Severity [...] virus vaccine, inactivated 5 04/26/09 Gi henri [id number] 12y+ bivalent booster vax 03/12/22 Recorded SARS-CoV-2 mRNA (cplzyfv-wggb-zgtbs) vax 10/17/21 Recorded SARS-CoV-2 (COVID-19) mRNA BNT-162b2 vac 03/28/21 Recorded SARS-CoV-2 (COVID-19) mRNA BNT-162b2 vac 08/15/20 Given pneumococcal 23-valent vaccine 09/24/16 Given pneumococcal 23-valent vaccine 6 10/24/04 Given pneumococcal 13-valent vaccine 07/10/15 Given Zoster Vaccine Live 7 09/13/08 Given diphtheria-tetanus toxoids (DT) 10/29/03 Given 1Admin Note: [facility] 2[facility] Note: [facility] [place] 3Admin Note: [facility] pallavi [place] 4Result Comment: [07/10/2015] zache nicole 5Admin Note: Pallvai 6Admin Note: Pallavi 7Admin Note: diluent lot [...] Refills, Maintenance, 01/15/22 16:23:00 EDT, Tablet, [facility], Partial fill upon patient request [...] Dry Weight Start Date: 09/17/23 Status: Ordered gabapentin 300 mg oral capsule 300 mg, 1, capsule, By Mouth, 3 times a day, EMERGENCY SUPPLY UNTIL MAIL ORDER COMES IN, # 30 capsule, Refills 0, Tot. Refills 0, Maintenance, 09/17/23 16:29:00 EDT, [id number], Partial fill upon viral... Start Date: 09/17/23 [...] 13:08:00 EDT, Route to Pharmacy Electronically, [facility], 159, cm, 01/20/23 8:23:00 EDT, Height, 81, kg, 12/10/21 9:01:00 EDT, Dry... Start Date: 02/12/23 Status: Ordered lamotrigine 25 mg oral tablet 50 mg, 2, tablet, By Mouth, 2 times a day, dose increase, # 360 tablet, Refills 2, Tot. Refills 2, Maintenance, 02/12/23 13:09:00 EDT, Route to Pharmacy Electronically, [facility],Partial fill upon patient request if the prescripti... Start Date: 02/12/23 Status: Ordered lisinopril 10 mg oral tablet See Instructions, TAKE 1 TABLET DAILY, # 30 tablet, Refills 11, Maintenance, 05/17/23 8:21:00 EST, Instructions Replace Required Details, Route to Pharmacy Electronically, [facility], 159, cm, 03/11/23 9:45:00 EDT, Height, 81, kg, 0... Start Date: 05/17/23 Status: Ordered Nitrostat 0.3 mg sublingual tablet 1 tablet = 0.3 mg, Sublingual, Every 5 minutes, PRN as needed for chest pain, not to exceed 3 doses/15 min--if pain persists, seek medical attention, # 25 tablet, 0 Refills, Maintenance, 06/16/23 10:10:00 EST, Tablet, [facility] #[id number], Part... Start Date: 06/16/23 Status: Ordered omeprazole [...] Care Team Personnel Name: Saadia Abdalla Position: [facility] Onco RN Member Role: Primary Care Nurse Name: Janna Sibley MD Position: [facility] Physician - Primary Care Member Role: PCP Address: Address: [address] [place] [id number] Name: Aislinn Mccauley RN Position: [facility] RN Member Role: Primary Care Nurse Care Team Related Persons Name: AMIRA MURPHY Address: home [address] [place] [address] [id number] Name: AMIRA MURPHY Address: home [address] [place] [address] Name: AMIRA MURPHY Address: [address] [place] [address] [place] Address: temporary 0 Name: TITO MURPHY Address: home [address] [place] [address] [place] Name: TITO MURPHY Address: home [address] [place] [address] Name: TITO MURPHY Address: home [address] [place] [address]
--- OUTSIDE RECORDS SUMMARY | 2023-12-27 06:45 | XMS_ITS | Continuity of Care Document ---
Author Organization [facility] Address [address] [place] [address]- Care Team Providers Care Non Profit Job Titles Name Role Phone Colt LANDIN, Jud Guzman Primary Care Physicia n [place] [facility] [place] 12/11/20 - 01/10/21 [facility] [address] [place] [address]- Allergies, Adverse Reactions, Alerts Substance Reaction Severity [...] [facility] 2Admin Note: Joseph Phelan [place] 3Admin Note: Joseph Rivera [facility] pallavi ferrell 4Result Comment: [07/10/2015] joseph rivera 5Admin Note: Pallavi 6Admin Note: [place] 7Admin Note: diluent lot [id number] Exp 08/28 [...] EDT, Height, 83, kg, 09/04/20 14:05:00 EDT, Dr... Start Date: 09/20/20 Status: Ordered lamotrigine 25 [...] 1 Refills, Maintenance, 10/30/20 13:21:00 EDT, Tablet, [facility] #[id number], Partial fill upon patient request if the [...]
--- OUTSIDE RECORDS SUMMARY | 2023-12-27 06:45 | XMS_ITS | Continuity of Care Document ---
Author Organization [facility] Address [address] [address]- Care Team Providers Care Housing Management Officer Name Role Phone Toñito COLE, Dereckdunlap memorial hospitaljuan Primary Care Physician Encounter [facility] [place] Date(s): 08/30/23 - 09/29/23 [facility] [address] [id number] Allergies, Adverse Reactions, Alerts Substance Reaction Severity [...] virus vaccine, inactivated 5 04/26/09 Gi henri [id number] 12y+ bivalent booster vax 03/12/22 Recorded SARS-CoV-2 mRNA (pblpyhn-hdzv-lrcsc) vax 10/17/21 Recorded SARS-CoV-2 (COVID-19) mRNA BNT-162b2 vac 03/28/21 Recorded SARS-CoV-2 (COVID-19) mRNA BNT-162b2 vac 08/15/20 Given pneumococcal 23-valent vaccine 09/24/16 Given pneumococcal 23-valent vaccine 6 10/24/04 Given pneumococcal 13-valent vaccine 07/10/15 Given Zoster Vaccine Live 7 09/13/08 Given diphtheria-tetanus toxoids (DT) 10/29/03 Given 1Admin Note: [facility] 2[facility] Note: [facility] [place] 3Admin Note: [facility] pallavi [place] 4Result Comment: [07/10/2015] [facility] 5Admin Note: [...] Maintenance, 09/17/23 16:29:00 EDT, [id number], Partial fill upon viral... Start Date: 09/17/23 [...] 13:08:00 EDT, Route to Pharmacy Electronically, [facility], 159, cm, 01/20/23 8:23:00 EDT, Height, 81, kg, 12/10/21 9:01:00 EDT, Dry... Start Date: 02/12/23 Status: Ordered lamotrigine 25 mg oral tablet 50 mg, 2, tablet, By Mouth, 2 times a day, dose increase, # 360 tablet, Refills 2, Tot. Refills 2, Maintenance, 02/12/23 13:09:00 EDT, Route to Pharmacy Electronically, [facility],Partial fill upon patient request if the prescripti... Start Date: 02/12/23 Status: Ordered lisinopril 10 mg oral tablet See Instructions, TAKE 1 TABLET DAILY, # 30 tablet, Refills 11, Maintenance, 05/17/23 8:21:00 EST, Instructions Replace Required Details, Route to Pharmacy Electronically, [facility], 159, cm, 03/11/23 9:45:00 EDT, Height, 81, kg, 0... Start Date: 05/17/23 Status: Ordered Nitrostat 0.3 mg sublingual tablet 1 tablet = 0.3 mg, Sublingual, Every 5 minutes, PRN as needed for chest pain, not to exceed 3 doses/15 min--if pain persists, seek medical attention, # 25 tablet, 0 Refills, Maintenance, 06/16/23 10:10:00 EST, Tablet, [facility] #[id number], Part... Start Date: 06/16/23 Status: Ordered omeprazole [...] Care Team Personnel Name: Saadia Abdalla Position: [facility] Onco RN Member Role: Primary Care Nurse Name: Janna Sibley MD Position: [facility] Physician - Primary Care Member Role: PCP Address: Address: [address] [place] [address] [address] [place], [place] [address] Name: Aislinn Mccauley RN Position: [facility] RN Member Role: Primary Care Nurse Care Team Related Persons Name: AMIRA UMRPHY Address: home [address] [place] [address] [id number] Name: AMIRA MURPHY Address: home [address] [place] [address] Name: AMIRA MURPHY Address: [place] [address] [place], [place] Address: temporary 0 Name: TITO MURPHY Address: [address] [place] [address] [place] Name: TITO MURPHY Address: home [address] [place] [address] Name: TITO MURPHY Address: home [address] [place] [address]
--- OUTSIDE RECORDS SUMMARY | 2023-12-27 06:45 | XMS_ITS | Continuity of Care Document ---
Author Organization [facility] Adult Address [address] [place] [address]- Care Team Providers Care Charge Operator Name Role Phone Colt LANDIN, Jud Guzman Primary Care Physicia n Encounter [facility] [place] Date(s): 06/23/21 - 07/23/21 [facility] [address] [place] [address]- Allergies, Adverse Reactions, Alerts Substance Reaction Severity [...] Joseph Phelan [place] 3Admin Note: Joseph Rivera [facility] pallavi ferrell 4Result Comment: [07/10/2015] joseph rivera 5Admin Note: Pallavi 6Admin Note: [place] 7Admin Note: diluent lot [id number] Exp 08/28 [...]
--- OUTSIDE RECORDS SUMMARY | 2023-12-27 06:45 | XMS_ITS | Continuity of Care Document ---
Author Organization [facility] Address [address] [place] [address]- Care Team Providers Care Range Aid Name Role Phone Not on Staff, PCP Primary Care Physician Unavail able Encounter [facility] Date(s): 10/12/19 - 11/11/19 [facility] [address] [place] [address] Attending Physician: Freddie Mcgrath Admitting Physician: Freddie [...] Joseph Phelan [place] 3Admin Note: Joseph Rivera [facility] pallavi ferrell 4Result Comment: [07/10/2015] joseph rivera 5Admin Note: Pall[facility] 6Admin Note: [facility] 7Admin Note: diluent lot [id number] Exp 08/28 Medications calcium and vitamin D combination 315 mg-200 iu oral tablet 1 tablet, By Mouth, 2 times a day, # 120 tablet, 0 Refills, Maintenance, Tablet Start Date: 05/07/13 Status: Ordered chlorthalidone 25 mg oral tablet 25 mg, 1, tablet, By Mouth, Daily, # 90 tablet, Refills 3, Tot. Refills 3, Maintenance, 03/09/19 11:53:31 EDT, Route to Pharmacy Electronically, [id number], [facility] Start Date: 03/09/19 Stop Date: 03/03/20 Status: Ordered CPAP Machine See Instructions, # 1 each, Refills 12, Tot. Refills 12, Maintenance, DX. SEBASTIAN CPAP at 12-16 cm H20 with heated humidifier and airfit F20 mefium full face mask please include tubings and refills, 02/25/17 13:27:26, Compound Start Date: 02/25/17 Status: Ordered Flonase 50 mcg/inh nasal spray 1 sprays, Nares, Both, 2 times a day, # 3 each, 3 Refills, Maintenance, 08/23/17 10:17:27, [place], 1sprays Nares, Both 2 times a day,x90 days Start Date: 08/23/17 Stop Date: 08/18/18 Status: Ordered gabapentin 800 mg oral tablet 1 tablet = 800 mg, By Mouth, 4 times a day, # 360 tablet, 1 Refills, Maintenance, 10/06/19 14:20:00EDT, Tablet, [facility], 160, cm, 08/09/19 8:24:00 EST, Height, 91, kg, :18:00 EDT, Dry Weight Start Date: 10/06/19 Stop Date: 04/03/20 Status: Ordered lamotrigine 100 mg oral tablet 100 mg, 1, tablet, By Mouth, 2 times a day, # 180 tablet, Refills 1, Tot. Refills 1, Maintenance, 10/06/19 14:20:00 EDT, Route to Pharmacy Electronically, [facility], New increaseddose, 160, cm, 08/09/19 8:24:00 EST, Height, 91, kg... Start Date: 10/06/19 Status: Ordered lamotrigine 25 mg oral tablet 25 mg, 1, tablet, By Mouth, 2 times a day, Take with 100mg tab for total daily dose of 125mg twice daily, # 180 tablet, Refills 1, Tot. Refills 1, Maintenance, 10/06/19 14:20:00 EDT, Route to Pharmacy Electronically, [facility], 160... Start Date: 10/06/19 Status: Ordered lisinopril 40 mg oral tablet 1 tablet = 40 mg, By Mouth, Daily, # 90 tablet, 3 Refills, Maintenance, 03/09/19 11:51:47 EDT, Tablet Start Date: 03/09/19 Stop Date: 03/03/20 Status: Ordered omeprazole 20 mg oral enteric coated capsule 1 capsule = 20 mg, By Mouth, 2 times a day, # 180 capsule, 0 Refills, Maintenance, 06/06/19 11:07:22 EST, [facility], 160, cm, 04/12/19 14:14:39 EDT, Height, 91, kg, 02/16/18 1:18:19 EDT, Dry Weight Start Date: 06/06/19 Status: Ordered Vitamin B-12 100 mcg oral tablet 100 mcg, 1, tablet, By Mouth, Daily, Refills 0, Maintenance, 10/27/16 17:08:49 Start Date: 10/27/16 Status: Ordered Problem List Condition Effective Dates [...]
--- OUTSIDE RECORDS SUMMARY | 2023-12-27 06:45 | XMS_ITS | Continuity of Care Document ---
Author Organization [facility] ter Address [address] [place] [address]- Care Team Providers Care Dumper Bulk System Name Role Phone Janna Sibley MD Primary Care Physician Encounter [facility] [place] Date(s): 09/20/22 - 09/20/[address] [address]- Encounter Diagnosis Fall(Final) - 09/20/22 Discharge Disposition: A-D/C Home Attending Physician: Kristian Driscoll MD Admitting Physician: Kristian Driscoll MD Referring Physician: Not on Staff, Referring [...] virus vaccine, inactivated 5 04/26/09 Gi henri [id number] 12y+ bivalent booster vax 03/12/22 Recorded SARS-CoV-2 mRNA (alvnohu-xsmr-rcsky) vax 10/17/21 Recorded SARS-CoV-2 (COVID-19) mRNA BNT-162b2 vac 03/28/21 Recorded pneumococcal 23-valent vaccine 09/24/16 Given pneumococcal 23-valent vaccine 6 10/24/04 Given pneumococcal 13-valent vaccine 07/10/15 Given Zoster Vaccine Live 7 09/13/08 Given diphtheria-tetanus toxoids (DT) 10/29/03 Given [facility] 2[facility] [place] 3[facility] 4Result Comment: [07/10/2015] zache aid 5Admin Note: [place] 6Admin Note: [place] 7Admin [...] 08/24/22 11:35:00 EST, Route to Pharmacy Electronically, [id number], Partial fill upon patient request if the [...] Exam Date Time Procedure Performing Provider Status 09/20/22 7:04 PM XR Hip w/Pelvis 2-3 View Right Jerry Bailey; Auth (Verified) Notes: (XR Hip w/Pelvis 2-3 View Right) Reason For Exam: Trauma RESULT: XR Hip w/Pelvis 2-3 View Right XR Hip w/Pelvis 2-3 View Right INDICATION: Trauma. Pt walking on side walk had fall, hit R temporal area, Hematoma bruising on R outer thigh 3 10 pain, denies h a no LOC; no thinners COMPARISON: CT abdomen and pelvis 05/21/2022. FINDINGS: There is no fracture or dislocation. Normal hips and sacroiliac joints. Normal soft tissues. IMPRESSION: No acute abnormality. I have personally reviewed the images and I agree with this report. WSN: [id number] Ordering Physician: Neelam Teague Dictated By: Ra Branham DO Dictated Date/Time: 09/20/22 8:38 pm Reviewed By: Lee Rizo MD Signed By: Lee Rizo MD Signed Date/Time: 09/20/22 8:43 pm Transcribed By: STEPHANIE Transcribed Date/Time: 09/20/22 8:23 pm * Exam Date Time Procedure Performing Provider Status 09/20/22 6:[address] Cervical Spine W/O Contrast Micheline Johnston; Lynsey (Verified) Notes: (CT Cervical Spine W/O Contrast) Reason For Exam: Neck trauma, dangerous injury mechanism;Other: RESULT: CT Cervical Spine W/O Contrast INDICATION: Hx of Present Illness: Pt walking on side walk had fall, hit R temporal area, Hematoma bruising on R outer thigh 3 10 pain, denies h a no LOC; no thinners; Reason: Trauma; Clinical Question(s): Other:; Order Comment: CLINICAL QUESTION: Other: TECHNIQUE: Noncontrast head and cervical spine CT using axial technique and reconstructed in axial,sagittal, and coronal plane. Age-based protocol was used to optimize exposure parameters. CTDIvol Body: 16.40 mGy, DLP Body: 402 mGy*cm. CTDIvol Head: 40.00 mGy, DLP Head: 671 mGy*cm. COMPARISON: 07/22/2022 FINDINGS: BRAIN: No parenchymal hemorrhage, midline shift or mass effect. Cherry-white matter differentiation is well preserved. No acute infarct. There is left frontal encephalomalacia, unchanged. Mild prominence of the ventricles and sulci consistent with cortical and cerebellar parenchymal volume loss. Mild periventricular and subcortical low-density white matter changes. CALVARIUM, SKULL BASE and SINUSES: No acute finding. C-SPINE: The lung apices are clear. There is no acute fracture or subluxation. The prevertebral soft tissue is unremarkable. There is mild degenerative change at C5/C6. IMPRESSION: No acute finding. WSN: [id number] Ordering Physician: DirectorNeelam Dictated By: Ora Barksdale MD Dictated Date/Time: 09/20/22 7:17 pm Reviewed By: Ora Barksdale MD Signed By: Ora Barksdale MD Signed Date/Time: 09/20/22 7:17 pm Transcribed By: STEPHANIE Transcribed Date/Time: 09/20/22 7:11 pm * Exam Date Time Procedure Performing Provider Status 09/20/22 6:[address] Head/Brain W/O Contrast Adrián Johnston; Auth (Verified) Notes: (CT Head/Brain W/O Contrast) Reason For Exam: Trauma RESULT: CT Head/Brain W/O Contrast INDICATION: Hx of Present Illness: Pt walking on side walk had fall, hit R temporal area, Hematoma bruising on R outer thigh 3 10 pain, denies h a no LOC; no thinners; Reason: Trauma; Clinical Question(s): Other:; Order Comment: CLINICAL QUESTION: Other: TECHNIQUE: Noncontrast head and cervical spine CT using axial technique and reconstructed in axial,sagittal, and coronal plane. Age-based protocol was used to optimize exposure parameters. CTDIvol Body: 16.40 mGy, DLP Body: 402 mGy*cm. CTDIvol Head: 40.00 mGy, DLP Head: 671 mGy*cm. COMPARISON: 07/22/2022 FINDINGS: BRAIN: No parenchymal hemorrhage, midline shift or mass effect. Cherry-white matter differentiation is well preserved. No acute infarct. There is left frontal encephalomalacia, unchanged. Mild prominence of the ventricles and sulci consistent with cortical and cerebellar parenchymal volume loss. Mild periventricular and subcortical low-density white matter changes. CALVARIUM, SKULL BASE and SINUSES: No acute finding. C-SPINE: The lung apices are clear. There is no acute fracture or subluxation. The prevertebral soft tissue is unremarkable. There is mild degenerative change at C5/C6. IMPRESSION: No acute finding. WSN: [id number] Ordering Physician: Neelam Teague Dictated By: Ora Barksdale MD Dictated Date/Time: 09/20/22 7:17 pm Reviewed By: Ora Barksdale MD Signed By: Ora Barksdale MD Signed Date/Time: 09/20/22 7:17 pm Transcribed By: STEPHANIE Transcribed Date/Time: 09/20/22 7:11 pm Vital Signs Most recent to oldest [Reference Range]: 1 Oxygen Saturation [94-100 %] 100 % (09/20/22 5:28 PM) Pulse Rate [55-90 bpm] 62 bpm (09/20/22 5:28 PM) Blood Pressure [90-138/55-84 mm Hg] 148/ 85mm Hg *H* (09/20/22 5:28 PM) Respiratory Rate [16-30 br/min] 19 br/mi n (09/20/22 5:28 PM) Temperature [96.8-100.4 DegF] 97.5 DegF (09/20/22 5:28 PM) Mode of Delivery (Oxygen) Room air (09/20/22 5:28 PM) Blood pressure sites Arm, right (09/20/22 5:28 PM) Temperature Route Oral (09/20/22 5:28 PM) Social History Social History Type Response Smoking Status Never smoker entered on: 05/23/[address] Cervical spine WO contrast * BHSPowerscribe , CIS S: TRANSCRIBE Ora Barksdale MD: VERIFY Event Display: Result: Authored Date: [id number] INDICATION: Hx of Present Illness: Pt walking on side walk had fall, hit R temporal area, Hematoma bruising on R outer thigh 3 10 pain, denies h a no LOC; no thinners; Reason: Trauma; Clinical Question(s): Other:; Order Comment: CLINICAL QUESTION: Other: TECHNIQUE: Noncontrast head and cervical spine CT using axial technique and reconstructed in axial,sagittal, and coronal plane. Age-based protocol was used to optimize exposure parameters. CTDIvol Body: 16.40 mGy, DLP Body: 402 mGy*cm. CTDIvol Head: 40.00 mGy, DLP Head: 671 mGy*cm. COMPARISON: 07/22/2022 FINDINGS: BRAIN: No parenchymal hemorrhage, midline shift or mass effect. Cherry-white matter differentiation is well preserved. No acute infarct. There is left frontal encephalomalacia, unchanged. Mild prominence of the ventricles and sulci consistent with cortical and cerebellar parenchymal volume loss. Mild periventricular and subcortical low-density white matter changes. CALVARIUM, SKULL BASE and SINUSES: No acute finding. C-SPINE: The lung apices are clear. There is no acute fracture or subluxation. The prevertebral soft tissue is unremarkable. There is mild degenerative change at C5/C6. IMPRESSION: No acute finding. WSN: [id number] Ordering Physician: Neelam Teague Dictated By: Ora Barksdale MD Dictated Date/Time: 09/20/22 7:17 pm Reviewed By: Ora Barksdale MD Signed By: Ora Barksdale MD Signed Date/Time: 09/20/22 7:17 pm Transcribed By: STEPHANIE Transcribed Date/Time: 09/20/22 7:[address] Head WO contrast * BHSPowerscribe , CIS S: TRANSCRIBE Ora Barksdale MD: VERIFY Event Display: Result: Authored Date: [id number] INDICATION: Hx of Present Illness: Pt walking on side walk had fall, hit R temporal area, Hematoma bruising on R outer thigh 3 10 pain, denies h a no LOC; no thinners; Reason: Trauma; Clinical Question(s): Other:; Order Comment: CLINICAL QUESTION: Other: TECHNIQUE: Noncontrast head and cervical spine CT using axial technique and reconstructed in axial,sagittal, and coronal plane. Age-based protocol was used to optimize exposure parameters. CTDIvol Body: 16.40 mGy, DLP Body: 402 mGy*cm. CTDIvol Head: 40.00 mGy, DLP Head: 671 mGy*cm. COMPARISON: 07/22/2022 FINDINGS: BRAIN: No parenchymal hemorrhage, midline shift or mass effect. Cherry-white matter differentiation is well preserved. No acute infarct. There is left frontal encephalomalacia, unchanged. Mild prominence of the ventricles and sulci consistent with cortical and cerebellar parenchymal volume loss. Mild periventricular and subcortical low-density white matter changes. CALVARIUM, SKULL BASE and SINUSES: No acute finding. C-SPINE: The lung apices are clear. There is no acute fracture or subluxation. The prevertebral soft tissue is unremarkable. There is mild degenerative change at C5/C6. IMPRESSION: No acute finding. WSN: [id number] Ordering Physician: Neelam Teague Dictated By: Ora Barksdale MD Dictated Date/Time: 09/20/22 7:17 pm Reviewed By: Ora Barksdale MD Signed By: Ora Barksdale MD Signed Date/Time: 09/20/22 7:17 pm Transcribed By: STEPHANIE Transcribed Date/Time: 09/20/22 7:11 pm XR Pelvis and Hip - right Views * BHSPowerscribe , CIS S: TRANSCRIBE Lee Rizo MD: VERIFY Ra Branham DO: SIGN Event Display: Result: Authored Date: [id number] XR Hip w/Pelvis 2-3 View Right INDICATION: Trauma. Pt walking on side walk had fall, hit R temporal area, Hematoma bruising on R outer thigh 3 10 pain, denies h a no LOC; no thinners COMPARISON: CT abdomen and pelvis 05/21/2022. FINDINGS: There is no fracture or dislocation. Normal hips and sacroiliac joints. Normal soft tissues. IMPRESSION: No acute abnormality. I have personally reviewed the images and I agree with this report. WSN: [id number] Ordering Physician: Neelam Teague Dictated By: Ra Branham DO Dictated Date/Time: 09/20/22 8:38 pm Reviewed By: Lee Rizo MD Signed By: Lee Rizo MD Signed Date/Time: 09/20/22 8:43 pm Transcribed By: STEPHANIE Transcribed Date/Time: 09/20/22 8:23 pm Patient Care team information Care Team Personnel Name: Saadia Abdalla Position: [facility] Onco RN Member Role: Primary Care Nurse Name: Janna Sibley MD Position: [facility] Primary Care Physician Member Role: PCP Address: Address: [address] [place] [address] [place] [address]- [place] Name: Nasrin Graf RN Position: [facility] AMB Nurse Member Role: Primary Care Nurse Name: Aislinn Mccauley RN Position: [facility] RN Member Role: Primary Care Nurse Name: Kristian Driscoll MD Position: [facility] ED Medicine MD Member Role: Admitting Physician Address: Address: [address] [place] [address] - Name: Director Neelam COLE Position: [facility] Resident Member Role: ED Resident Address: Address: [address] [place] [address] - Name: Cherise Rayo RN Position: [facility] ED RN W/OE and Tasks Member Role: Patient Care Provider Name: Julissa Carlisle Position: [facility] ED TA [facility] Member Role: Labor Crew Supervisor Care Team Related Persons Name: AMIRA MURPHY Address: home [address] [place], [place] Name: AMIRA MURPHY Address: home [address] [facility] [id number] Name: AMIRA MURPHY Address: home [address] [place], [place] Address: temporary 0 Name: TITO MURPHY Address: home [address] [place] [address] [place] Name: TITO MURPHY Address: [address] [place], [place] Name: TITO MURPHY Address: home [address] [place] [address]
--- OUTSIDE RECORDS SUMMARY | 2023-12-27 06:45 | XMS_ITS | Continuity of Care Document ---
Author Organization [facility] Address [address] [facility], [address] d Floor, [address] [place] [address]- Care Team Providers Care Forensics Team Director Name Role Phone Toñito COLE, Dereckj.w. [facility] hospital[facility] Primary Care Physician Encounter [facility] [place] Date(s): 07/15/23 - 08/14/23 [facility] [address], [address], [address] [place] [address]- Allergies, Adverse Reactions, Alerts Substance Reaction Severity [...] virus vaccine, inactivated 5 04/26/09 Gi henri [id number] 12y+ bivalent booster vax 03/12/22 Recorded SARS-CoV-2 mRNA (bgypnmg-iqpe-feddo) vax 10/17/21 Recorded SARS-CoV-2 (COVID-19) mRNA BNT-162b2 vac 03/28/21 Recorded SARS-CoV-2 (COVID-19) mRNA BNT-162b2 vac 08/15/20 Given pneumococcal 23-valent vaccine 09/24/16 Given pneumococcal 23-valent vaccine 6 10/24/04 Given pneumococcal 13-valent vaccine 07/10/15 Given Zoster Vaccine Live 7 09/13/08 Given diphtheria-tetanus toxoids (DT) 10/29/03 Given 1[facility] 2[facility] Note: [facility] [place] 3Admin Note: [facility] [place] 4Result Comment: [07/10/2015] chelo rivera 5Admin Note: [...] Refills, Maintenance, 01/15/22 16:23:00 EDT, Tablet, [facility], Partial fill upon patient request [...] Maintenance,11/17/22 8:37:00 EDT, Route to Pharmacy Electronically, [id number], Partial fill upon patient request if the [...] 13:08:00 EDT, Route to Pharmacy Electronically, [facility], 159, cm, 01/20/23 8:23:00 EDT, [...] Required Details, Route to Pharmacy Electronically, [facility], 159, cm, 03/11/23 9:45:00 EDT, Height, 81, kg, 0... Start Date: 05/17/23 Status: Ordered Nitrostat 0.3 mg sublingual tablet 1 tablet = 0.3 mg, Sublingual, Every 5 minutes, PRN as needed for chest pain, not to exceed 3 doses/15 min--if pain persists, seek medical attention, # 25 tablet, 0 Refills, Maintenance, 06/16/23 10:10:00 EST, Tablet, [facility] #[id number], Part... Start Date: 06/16/23 Status: Ordered omeprazole 20 mg oral delayed release tablet 1 tablet = 20 mg, By Mouth, 2 times a day, # 180 tablet, 1 Refills, Maintenance, 07/20/23 13:18:00 EST, EC Tablet, [facility], Partial fill upon patient request [...] Care Team Personnel Name: Saadia Abdalla Position: [facility] Onco RN Member Role: Primary Care Nurse Name: Janna Sibley MD Position: [facility] Physician - Primary Care Member Role: PCP Address: Address: [address] [place] [address] [address]rd Floor [place], [place] [address] Name: Aislinn Mccauley RN Position: [facility] RN Member Role: Primary Care Nurse Care Team Related Persons Name: AMIRA MURPHY Address: home [address] [place] [address] [place] Address: [facility] 0 Name: AMIRA MURPHY Address: [address] [facility] [id number] Name: AMIRA MURPHY Address: home [address] [place] [address] Name: TITO MURPHY Address: [address] [place] [address] [place] Name: TITO MURPHY Address: [address] [place] [address] Name: TITO MURPHY Address: [address] [place] [address]
--- OUTSIDE RECORDS SUMMARY | 2023-12-27 06:45 | XMS_ITS | Continuity of Care Document ---
Author Organization [facility] Adult Address [address] [place] [address]- Care Team Providers Care Linoleum Tile Layer Name Role Phone Toñito COEL, [facility] Primary Care Physician ( [phone] [place] [facility] [place] Date(s): 09/02/23 - 10/02/[address] [address]- Allergies, Adverse Reactions, Alerts Substance Reaction Severity [...] virus vaccine, inactivated 5 04/26/09 Gi henri [id number] 12y+ bivalent booster vax 03/12/22 Recorded SARS-CoV-2 mRNA (dlwraoj-gfaj-vbgpy) vax 10/17/21 Recorded SARS-CoV-2 (COVID-19) mRNA BNT-162b2 vac 03/28/21 Recorded SARS-CoV-2 (COVID-19) mRNA BNT-162b2 vac 08/15/20 Given pneumococcal 23-valent vaccine 09/24/16 Given pneumococcal 23-valent vaccine 6 10/24/04 Given pneumococcal 13-valent vaccine 07/10/15 Given Zoster Vaccine Live 7 09/13/08 Given diphtheria-tetanus toxoids (DT) 10/29/03 Given 1[facility] 2[facility] Note: [facility] [place] 3Admin Note: [facility] [place] 4Result Comment: [07/10/2015] zache nicole 5Admin Note: [...] Refills, Maintenance, 01/15/22 16:23:00 EDT, Tablet, [facility], Partial fill upon patient request [...] Maintenance, 09/17/23 16:29:00 EDT, [id number], Partial fill upon viral... Start Date: 09/17/23 [...] 13:08:00 EDT, Route to Pharmacy Electronically, [facility], 159, cm, 01/20/23 8:23:00 EDT, Height, 81, kg, 12/10/21 9:01:00 EDT, Dry... Start Date: 02/12/23 Status: Ordered lamotrigine 25 mg oral tablet 50 mg, 2, tablet, By Mouth, 2 times a day, dose increase, # 360 tablet, Refills 2, Tot. Refills 2, Maintenance, 02/12/23 13:09:00 EDT, Route to Pharmacy Electronically, [facility],Partial fill upon patient request if the prescripti... Start Date: 02/12/23 Status: Ordered lisinopril 10 mg oral tablet See Instructions, TAKE 1 TABLET DAILY, # 30 tablet, Refills 11, Maintenance, 05/17/23 8:21:00 EST, Instructions Replace Required Details, Route to Pharmacy Electronically, [facility], 159, cm, 03/11/23 9:45:00 EDT, Height, 81, kg, 0... Start Date: 05/17/23 Status: Ordered Nitrostat 0.3 mg sublingual tablet 1 tablet = 0.3 mg, Sublingual, Every 5 minutes, PRN as needed for chest pain, not to exceed 3 doses/15 min--if pain persists, seek medical attention, # 25 tablet, 0 Refills, Maintenance, 06/16/23 10:10:00 EST, Tablet, [id number], Part... Start Date: 06/16/23 Status: Ordered omeprazole [...] Care Team Personnel Name: Saadia Abdalla Position: [facility] Onco RN Member Role: Primary Care Nurse Name: Janna Sibley MD Position: [facility] Physician - Primary Care Member Role: PCP Address: Address: [address] [place] [address] Name: Aislinn Mccauley RN Position: [facility] RN Member Role: Primary Care Nurse Care Team Related Persons Name: AMIRA MURPHY Address: home [address] [place] [id number] Name: AMIRA MURPHY Address: home [address] [place] [address] Name: AMIRA MURPHY Address: [address] [place] [address] [place] Address: temporary 0 Name: TITO MURPHY Address: home [address] [place] [address] [place] Name: TITO MURPHY Address: home [address] [place] [address] Name: TITO MURPHY Address: [address] [place] [address]
--- OUTSIDE RECORDS SUMMARY | 2023-12-27 06:45 | XMS_ITS | Continuity of Care Document ---
Author Organization [facility] Address [address] [place] [address]- Care Team Providers Care Computer Application Developer Name Role Phone Colt LANDIN, Jud Guzman Primary Care Physicia n Encounter [facility] [place] Date(s): 03/13/20 - 04/28/20 [facility] [address] [place] [id number]- [place] Attending Physician: Colt LANDIN, Jud Guzman Allergies, Adverse Reactions, Alerts Substance Reaction Severity [...] Joseph Phelan [place] 3Admin Note: Joseph Rivera [facility] [place] 4Result Comment: [07/10/2015] joseph rivera 5Admin Note: [place] 6Admin Note: [place] 7Admin Note: diluent lot [id number] Exp 08/28 [...] mg, 0.5, tablet, By Mouth, Daily, # 15 tablet, Refills 0, Maintenance, 04/15/20 10:04:00 EDT Start Date: 04/15/20 Status: Ordered CPAP Equipment Maintenance, 04/15/20 10:10:00 EDT, Supply Start Date: 04/15/20 Status: Ordered gabapentin 300 mg oral capsule 300 mg, 1, capsule, By Mouth, 3 times a day, # 90 capsule, Refills 0, Maintenance, 04/15/20 10:05:00 EDT Start Date: 04/15/20 Status: Ordered lamotrigine 100 mg oral tablet 100 mg, 1, tablet, By Mouth, 2 times a day, # 60 tablet, Refills 0, Maintenance, 04/15/20 10:04:00 EDT Start Date: 04/15/20 Status: Ordered lamotrigine 25 mg oral tablet 25 mg, 1, tablet, By Mouth, 2 times a day, Taken with the 100 mg, # 60 tablet, Refills 0, Maintenance, 04/15/20 10:04:00 EDT Start Date: 04/15/20 Status: Ordered omeprazole 20 mg oral delayed [...] disorder(Confirmed) Active Bilateral hearing loss(Confirmed) 06/01/13 Active Fibromyalgia(Confirmed) [...]
--- OUTSIDE RECORDS SUMMARY | 2023-12-27 06:45 | XMS_ITS | Continuity of Care Document ---
Author Organization [facility] Adult Address [address] [place] [address]- Care Team Providers Care Lusterer Name Role Phone Toñito COLE, [facility] Primary Care Physician Encounter [facility] Date(s): 11/08/23 - 12/08/[address] [address]- Allergies, Adverse Reactions, Alerts Substance Reaction Severity [...] vaccine, inactivated 6 04/26/09 Gi henri SARS-CoV-2(COVID-19)mRNA-LNP vac([id number]) 04/10/23 Recorded [id number] 12y+ bivalent booster vax 03/12/22 Recorded SARS-CoV-2 mRNA (zhiduid-niey-jwlsu) vax 10/17/21 Recorded SARS-CoV-2 (COVID-19) mRNA BNT-162b2 vac 03/28/21 Recorded SARS-CoV-2 (COVID-19) mRNA BNT-162b2 vac 08/15/20 Given SARS-CoV-2 (COVID-19) mRNA BNT-162b2 vac 07/25/20 Recorded pneumococcal 23-valent vaccine 09/24/16 Given pneumococcal 23-valent vaccine 7 10/24/04 Given pneumococcal 13-valent vaccine 07/10/15 Given Zoster Vaccine Live 8 09/13/08 Given diphtheria-tetanus toxoids (DT) 10/29/03 Given 1Result Comment: [facility] [id number] 2[facility] 3Admin Note: [facility] 4Admin Note: [facility] 5Result Comment: [07/10/2015] zache nicole 6Admin Note: [place] 7Admin Note: [place] 8Admin Note: diluent lot [id number] Exp 08/28 Medications Aerochamber See Instructions, # 1 each, Refills 1, Tot. Refills 1, Maintenance, Urgent Use with metered dose inhaler., 10/13/23 13:22:00 EDT, Supply, 160, cm, 10/13/23 12:55:00 EDT, Height, 75.9, kg, 06/15/23 11:38:00 EST, Dry Weight Start Date: 10/13/23 Status: Ordered Aerochamber See Instructions, # 1 each, Refills 1, Tot. Refills 1, Maintenance, Use with metered dose inhalers,12/08/23 13:39:00 EDT, Supply, 160, cm, 12/08/23 13:09:00 EDT, Height, 77.3, kg, 10/29/23 13:00:00 EDT, Dry Weight Start Date: 12/08/23 Status: Ordered albuterol CFC free 90 mcg/inh inhalation aerosol 2, puffs, Inhalation, 4 times a day, PRN, Urgent use with spacer chamber, # 18 Gm, Refills 3, Tot. Refills 3, Maintenance, 10/13/23 13:21:00 EDT, Aerosol, Route to Pharmacy Electronically, [id number], [facility]... Start Date: 10/13/23 [...] Status: Ordered chlorthalidone 25 mg oral tablet 0.5, tablet, By Mouth, Daily, # 45 tablet, Refills 1, Tot. Refills 1, Maintenance, 11/30/23 1:02:00EDT, Route to Pharmacy Electronically, [facility], 160, cm, 11/09/23 11:30:00 EDT, Height, 77.3, kg, 10/29/23 13:00:00 EDT, Dry Weight Start Date: 11/30/23 Status: Ordered Clobetasol (Eqv-Temovate E) Topically, 2 times a day, 0 Refills, Maintenance, 11/09/23 11:48:00 EDT, Partial fill upon patient request if the prescription is for a schedule II opioid drug. Start Date: 11/09/23 Status: Ordered CPAP Equipment Maintenance, 04/15/20 10:10:00 EDT, Supply Start Date: 04/15/20 Status: Ordered D-MANNOSE D-MANNOSE, Refills 0, Maintenance, 11/09/23 11:47:00 EDT, Supply Start Date: 11/09/23 Status: Ordered gabapentin 300 mg oral capsule [...] Supply Start Date: 01/20/23 Status: Ordered lamotrigine 25 mg oral tablet 2, tablet, By Mouth, 2 times a day, # 360 tablet, Refills 1, Maintenance, 12/06/23 15:14:00 EDT, Route to Pharmacy Electronically, [facility], 160, cm, 12/01/23 9:58:00 EDT, Height, 77.3, kg, 10/29/23 13:00:00 EDT, Dry Weight Start Date: 12/06/23 Status: Ordered lisinopril 10 mg oral tablet See Instructions, TAKE 1 TABLET DAILY, # 90 tablet, Refills 1, Tot. Refills 1, Maintenance, 11/30/23 13:53:00 EDT, Instructions Replace Required Details, Route to Pharmacy Electronically, [facility], 160, cm, 11/09/23 11:30:00 EDT,... Start Date: 11/30/23 Status: Ordered Nitrostat 0.3 mg sublingual tablet 1 tablet = 0.3 mg, Sublingual, Every 5 minutes, PRN as needed for chest pain, not to exceed 3 doses/15 min--if pain persists, seek medical attention, # 25 tablet, 0 Refills, Maintenance, 06/16/23 10:10:00 EST, Tablet, [facility] #[id number], Part... Start Date: 06/16/23 Status: Ordered omeprazole 20 mg oral delayed release tablet 1 tablet = 20 mg, By Mouth, 2 times a day, # 180 tablet, 1 Refills, Maintenance, 07/20/23 13:18:00 EST, EC Tablet, [facility], Partial fill upon patient request if the prescriptionis for a schedule II opioid drug., 160, cm, ... Start Date: 07/20/23 Stop Date: 01/16/24 Status: Ordered PreserVision AREDS 2 oral capsule By Mouth, Daily, 0 Refills, Maintenance, 04/15/20 10:06:00 EDT Start Date: 04/15/20 Status: Ordered Symbicort 160mcg/4.5mcg Inhaler 2, puffs, Inhalation, 2 times a day, use with spacer chamber, # 10.2 Gm, Refills 0, Tot. Refills 0,Maintenance, 12/08/23 13:44:00 EDT, Aerosol, Route to Pharmacy Electronically, [id number], [facility] #[id number], 160,... Start Date: 12/08/23 Stop Date: 01/07/24 Status: Ordered Symbicort 160mcg/4.5mcg Inhaler 2, puffs, Inhalation, 2 times a day, use with spacer chamber, # 3 capsule, Refills 3, Tot. Refills 3, Maintenance, 12/08/23 13:45:00 EDT, Aerosol, Route to Pharmacy Electronically, [id number], [facility], 1... 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 Onco RN Member Role: Primary Care Nurse Name: Janna Sibley MD Position: [facility] Physician - Primary Care Member Role: PCP Address: Address: [address] [place] [id number] Name: Aislinn Mccauley RN Position: [facility] RN Member Role: Primary Care Nurse Care Team Related Persons Name: AMIRA MURPHY Address: home [address] [place], [place] Name: AMIRA MURPHY Address: home [address] [facility] [id number] Name: AMIRA MURPHY Address: home [address] [place] [address] [place] Address: temporary 0 Name: TITO MURPHY Address: home [address] [place] [address] [place] Name: TITO MURPHY Address: home [address] [place] [address] Name: TITO MURPHY Address: home [address] [place] [address]
--- OUTSIDE RECORDS SUMMARY | 2023-12-27 06:46 | XMS_ITS | Continuity of Care Document ---
Author Organization [facility] Address [address] [place] [address]- Care Team Providers Care Manager Drug Name Role Phone Lobito Murguia DO Primary Care Physician [place] [facility] [place] 02/20/20 - 03/21/20 [facility] [address] [place] [address] Allergies, Adverse Reactions, Alerts Substance Reaction Severity [...] mollygrsusans high dose 2Admin Note: Joseph Phelan [place] 3Admin Note: Joseph León [facility] [place] 4Result Comment: [07/10/2015] joseph león 5Admin Note: Pallavi 6Admin Note: [place] 7Admin Note: diluent lot [id number] Exp 3/10 Medications amLODIPine 5 mg oral tablet 5 mg, 1, tablet, By Mouth, Daily, # 30 tablet, Refills 0, Tot. Refills 0, Maintenance, 12/26/19 14:29:00 EDT, Route to Pharmacy Electronically, [facility] #[id number], 160, cm, 11/29/19 15:13:00EDT, Height, 75, kg, 12/26/19 11:32:00 EDT, Dry Weight Start Date: 12/26/19 Status: Ordered aspirin 81 mg oral delayed release tablet 81 mg, By Mouth, Daily, # 30 tablet, Refills 0, Tot. Refills 0, Maintenance, 11/29/19 15:53:00 EDT,Route to Pharmacy Electronically, [facility] #[id number], 160, cm, 11/29/19 15:13:00 EDT, Height, 78.7, [...] 03/09/19 11:53:31 EDT, Route to Pharmacy Electronically, [facility] Start Date: 03/09/19 Stop Date: [...] 01/19/20 14:53:00 EDT, Route to Pharmacy Electronically, [facility], 160, cm, 11/29/19 15:13:... Start Date: 01/19/20 Status: Ordered gabapentin 300 mg oral capsule 300 mg, 1, capsule, By Mouth, 3 times a day, # 42 capsule, Refills 0, Tot. Refills 0, Maintenance, 02/09/20 17:47:00 EDT, Route to Pharmacy Electronically, [facility] #[id number], 160, cm, 11/29/19 15:13:00 EDT, Height, 75, kg, 12/26/19 11:32:00... Start Date: 02/09/20 Stop Date: 02/23/20 Status: Ordered lamotrigine 100 mg oral tablet 100 mg, 1, tablet, By Mouth, 2 times a day, # 180 tablet, Refills 1, Tot. Refills 1, Maintenance, 01/19/20 14:44:00 EDT, Route to Pharmacy Electronically, [facility], [facility], 160, cm, 11/29/19 15:13:00 EDT, Height, 75, k... Start Date: 01/19/20 Status: Ordered lamotrigine 25 mg oral tablet 25 mg, 1, tablet, By Mouth, 2 times a day, Take with 100mg tab for total daily dose of 125mg twice daily, # 180 tablet, Refills 1, Tot. Refills 1, Maintenance, 01/19/20 14:44:00 EDT, Route to Pharmacy Electronically, [facility], 160... Start Date: 01/19/20 Status: Ordered Lipitor 40 mg oral tablet 1 tablet = 40 mg, By Mouth, Daily at bedtime, # 30 tablet, 0 Refills, Maintenance, 12/26/19 14:30:00 EDT, Tablet, [facility] #[id number], 160, cm, 11/29/19 15:13:00 EDT, Height, 75, kg, 12/25/2010:32:00 EDT, Dry Weight Start Date: 12/26/19 Status: Ordered omeprazole 20 mg oral enteric coated capsule 1 capsule = 20 mg, By Mouth, 2 times a day, # 180 capsule, 0 Refills, Maintenance, 06/06/19 11:07:22 EST, [facility], 160, cm, 04/12/19 14:14:39 EDT, Height, 91, kg, 02/16/18 1:18:19 EDT, Dry Weight Start Date: 06/06/19 Status: Ordered PreserVision AREDS 2 By Mouth, Daily, 0 Refills, Maintenance, 03/18/20 11:01:00 EDT Start Date: 03/18/20 Status: Ordered Sinemet 25 mg-100 mg oral [...]
--- OUTSIDE RECORDS SUMMARY | 2023-12-27 06:46 | XMS_ITS | Continuity of Care Document ---
Author Organization [facility] Adult Address [address] [place] [address]- Care Team Providers Care Driller'S Assistant Name Role Phone Toñito COLE, [facility] Primary Care Physician [place] [facility] [place] 09/16/22 - 10/16/[address] [facility] Adult [address] [place] [phone]- Allergies, Adverse Reactions, Alerts Substance Reaction Severity [...] virus vaccine, inactivated 5 04/26/09 Gi henri [id number] 12y+ bivalent booster vax 03/12/22 Recorded SARS-CoV-2 mRNA (guzernd-mmer-suoti) vax 10/17/21 Recorded SARS-CoV-2 (COVID-19) mRNA BNT-162b2 vac 03/28/21 Recorded pneumococcal 23-valent vaccine 09/24/16 Given pneumococcal 23-valent vaccine 6 10/24/04 Given pneumococcal 13-valent vaccine 07/10/15 Given Zoster Vaccine Live 7 09/13/08 Given diphtheria-tetanus toxoids (DT) 10/29/03 Given 1Admin Note: [facility] 2Admin Note: Joseph RIVERA [facility] 3Admin Note: Joseph Rivera [facility] 4Result Comment: [07/10/2015] zachcece rivera 5Admin Note: [...] Pharmacy Electronically, [facility][id number], Partial fill upon patient request if the [...] Sibley MD Position: [facility] Primary Care Physician Member Role: PCP Address: Address: [address] [place] [address] [address] [place] [address]- Name: Nasrin Graf RN Position: [facility] AMB Nurse Member Role: Primary Care Nurse Name: Aislinn Mccauley RN Position: [facility] RN Member Role: Primary Care Nurse Care Team Related Persons Name: AMIRA MURPHY Address: home [address] [place], [place] Name: AMIRA MURPHY Address: home [address] [facility] A[id number] Name: AMIRA MURPHY Address: [address] [place], [place] Address: temporary 0 Name: TITO MURPHY Address: home [address] [place] [address] Name: TITO MURPHY Address: [address] [place], [place] Name: TITO MURPHY Address: home [address] [place] [address]
--- OUTSIDE RECORDS SUMMARY | 2023-12-27 06:46 | XMS_ITS | Continuity of Care Document ---
Author Organization [facility] Address [address] [facility], [address] Floor, [address] [place] [address]- Care Team Providers Care Compliance Monitor Name Role Phone Toñito COLE, [facility] Physician En[facility] Date(s): 07/15/23 - 08/14/23 [facility] [address], [address], [address] [place] [address]- Allergies, Adverse Reactions, Alerts Substance Reaction Severity [...] virus vaccine, inactivated 5 04/26/09 Gi henri [id number] 12y+ bivalent booster vax 03/12/22 Recorded SARS-CoV-2 mRNA (ymqhpil-mhze-atqga) vax 10/17/21 Recorded SARS-CoV-2 (COVID-19) mRNA BNT-162b2 vac 03/28/21 Recorded SARS-CoV-2 (COVID-19) mRNA BNT-162b2 vac 08/15/20 Given pneumococcal 23-valent vaccine 09/24/16 Given pneumococcal 23-valent vaccine 6 10/24/04 Given pneumococcal 13-valent vaccine 07/10/15 Given Zoster Vaccine Live 7 09/13/08 Given diphtheria-tetanus toxoids (DT) 10/29/03 Given 1Admin Note: [facility] 2Admin Note: [facility] [place] 3Admin Note: [facility] [place] 4Result Comment: [07/10/2015] chelo rivera 5Admin Note: [...] Refills, Maintenance, 01/15/22 16:23:00 EDT, Tablet, [facility], Partial fill upon patient request [...] Maintenance,11/17/22 8:37:00 EDT, Route to Pharmacy Electronically, [id number], Partial fill upon patient request if the [...] 13:08:00 EDT, Route to Pharmacy Electronically, [facility], 159, cm, 01/20/23 8:23:00 EDT, [...] Required Details, Route to Pharmacy Electronically, [facility], 159, cm, 03/11/23 9:45:00 EDT, Height, 81, kg, 0... Start Date: 05/17/23 Status: Ordered Nitrostat 0.3 mg sublingual tablet 1 tablet = 0.3 mg, Sublingual, Every 5 minutes, PRN as needed for chest pain, not to exceed 3 doses/15 min--if pain persists, seek medical attention, # 25 tablet, 0 Refills, Maintenance, 06/16/23 10:10:00 EST, Tablet, [facility] #[id number], Part... Start Date: 06/16/23 Status: Ordered omeprazole 20 mg oral delayed release tablet 1 tablet = 20 mg, By Mouth, 2 times a day, # 180 tablet, 1 Refills, Maintenance, 07/20/23 13:18:00 EST, EC Tablet, [facility], Partial fill upon patient request [...] Abdalla Position: [facility] Onco RN Member Role: Primary Care Nurse Name: Janna iSbley MD Position: [facility] Physician - Primary Care Member Role: PCP Address: Address: [address] [place] [address] [address]rd Floor [place], [place] [address] Name: Aislinn Mccauley RN Position: [facility] RN Member Role: Primary Care Nurse Care Team Related Persons Name: AMIRA MURPHY Address: home [address] [place] [address] [place] Address: [facility] 0 Name: AMIRA MURPHY Address: home [address] [facility] [id number] Name: AMIRA MURPHY Address: home [address] [place] [address] Name: TITO MURPHY Address: [address] [place] [address] [place] Name: TITO MURPHY Address: home [address] [place] [address] Name: TITO MURPHY Address: home [address] [place] [address]
--- OUTSIDE RECORDS SUMMARY | 2023-12-27 06:46 | XMS_ITS | Continuity of Care Document ---
Author Organization [facility] Address [address] [place] [address]- Care Team Providers Care Terra Cotta Mold Maker Name Role Phone Toñito COLE, [facility] Primary Care Physician En[place] [facility] Date(s): 04/05/23 - 05/05/23 [facility] [address] [place] [address]- Allergies, Adverse Reactions, Alerts Substance Reaction Severity [...] virus vaccine, inactivated 5 04/26/09 Gi henri [id number] 12y+ bivalent booster vax 03/12/22 Recorded SARS-CoV-2 mRNA (cpbqlwq-ynzf-oxogc) vax 10/17/21 Recorded SARS-CoV-2 (COVID-19) mRNA BNT-162b2 vac 03/28/21 Recorded SARS-CoV-2 (COVID-19) mRNA BNT-162b2 vac 08/15/20 Given pneumococcal 23-valent vaccine 09/24/16 Given pneumococcal 23-valent vaccine 6 10/24/04 Given pneumococcal 13-valent vaccine 07/10/15 Given Zoster Vaccine Live 7 09/13/08 Given diphtheria-tetanus toxoids (DT) 10/29/03 Given 1Admin Note: [facility] 2Admin Note: [facility] [place] 3Admin Note: [facility] [place] 4Result Comment: [07/10/2015] chelo rivera 5Admin Note: [...] Maintenance,11/17/22 8:37:00 EDT, Route to Pharmacy Electronically, [facility] #[id number], Partial fill upon patient request if the [...] 03/11/23 10:00:00 EDT, Route to Pharmacy Electronically, [facility][id number], Partial fill upon patient request if the [...] Team Personnel Name: Saadia Abdalla Position: [facility] Onco RN Member Role: Primary Care Nurse Name: Janna Sibley MD Position: [facility] Physician - Primary Care Member Role: PCP Address: Address: [address] [place] [address] [address] [place], [place] [address] Name: Aislinn Mccauley RN Position: [facility] RN Member Role: Primary Care Nurse Care Team Related Persons Name: AMIRA MURPHY Address: home [address] [place] [id number] Name: AMIRA MURPHY Address: home [address] [place] [address] [place] Address: temporary 0 Name: AMIRA MURPHY Address: home [address] [place] [address] Name: TITO MURPHY Address: [address] [place] [address] [place] Name: TITO MURPHY Address: home [address] [place] [address] Name: TITO MURPHY Address: [address] [place] [address]
--- OUTSIDE RECORDS SUMMARY | 2023-12-27 06:46 | XMS_ITS | Continuity of Care Document ---
Author Organization [facility] Adult Address [address] [place] [address]- Care Team Providers Care Para Professional Name Role Phone Colt LANDIN, Jud Guzman Primary Care Physicia n Encounter [facility] Date(s): 03/27/21 - 04/26/21 [facility] Adult [address] [place] [address]- Allergies, Adverse Reactions, Alerts Substance Reaction Severity [...] Joseph Phelan [place] 3Admin Note: Joseph Rivera [facility] pallavi [place] 4Result Comment: [07/10/2015] joseph rivera 5Admin Note: Pallavi 6Admin Note: [place] 7Admin Note: diluent lot [id number] Exp 08/28 Medications amLODIPine 10 mg oral tablet 1 tablet = 10 mg, By Mouth, Daily, # 90 tablet, 1 Refills, Maintenance, 03/26/21 10:14:00 EDT, Tablet, [facility], Partial fill upon patient request if the prescription is for a schedule II opioid drug., 159, [place], 03/26/21 9:50:00 ED... Start Date: 03/26/21 Status: [...]
--- OUTSIDE RECORDS SUMMARY | 2023-12-27 06:46 | XMS_ITS | Continuity of Care Document ---
Author Organization [facility] Address [address] [place] [address]- Care Team Providers Care Tube Backer Name Role Phone Toñito COLE, Janna Primary Care Physician [place] [facility] [place] 07/02/22 [facility] Adult [address] [place] [address]- Attending Physician: Janna Sibley MD Allergies, Adverse [...] virus vaccine, inactivated 5 04/26/09 Gi henri [id number] 12y+ bivalent booster vax 03/12/22 Recorded SARS-CoV-2 mRNA (skyvcps-vixb-nbnzf) vax 10/17/21 Recorded SARS-CoV-2 (COVID-19) mRNA BNT-162b2 vac 03/28/21 Recorded pneumococcal 23-valent vaccine 09/24/16 Given pneumococcal 23-valent vaccine 6 10/24/04 Given pneumococcal 13-valent vaccine 07/10/15 Given Zoster Vaccine Live 7 09/13/08 Given diphtheria-tetanus toxoids (DT) 10/29/03 Given 1Admin Note: [facility] 2Admin Note: Joseph SLIM [facility] 3Admin Note: Joseph Rivera [facility] [place] 4Result Comment: [07/10/2015] zachcece rivera 5Admin Note: [...] Personnel Name: Saadia Abdalla Position: [facility] Onco RN Member Role: Primary Care Nurse Name: Janna Sibley MD Position: [facility] Primary Care Physician Member Role: PCP Address: Address: [address] [place] [id number] Name: Homar RN, Nasrin Position: [facility] AMB Nurse Member Role: Primary Care Nurse Name: Aislinn Mccauley RN Position: [facility] RN Member Role: Primary Care Nurse Care Team Related Persons Name: AMIRA MURPHY Address: [address] [place], [place] Name: AMIRA MURPHY Address: [address] Name: AMIRA MURPHY Address: home [address] [place], [place] Address: temporary 0 Name: TITO MURPHY Address: [address] [place] [address] [place] Name: TITO MURPHY Address: [address] [place], [place] Name: TITO MURPHY Address: [address] [place] [address]
--- OUTSIDE RECORDS SUMMARY | 2023-12-27 06:46 | XMS_ITS | Continuity of Care Document ---
Author Organization [facility] Address [address], 4t [place] [address]- Care Team Providers Care Regional Truck Driver Name Role Phone Toñito COLE, Janna Primary Care Physician Encounter [facility] Date(s): 05/06/22 - 06/05/22 [facility] [email or web address] [facility] [address], 4th [place] [address]- Allergies, Adverse Reactions, Alerts Substance Reaction Severity [...] virus vaccine, inactivated 5 04/26/09 Gi henri [id number] 12y+ bivalent booster vax 03/12/22 Recorded SARS-CoV-2 mRNA (dagfgqd-xier-rjjqy) vax 10/17/21 Recorded SARS-CoV-2 (COVID-19) mRNA BNT-162b2 vac 03/28/21 Recorded pneumococcal 23-valent vaccine 09/24/16 Given pneumococcal 23-valent vaccine 6 10/24/04 Given pneumococcal 13-valent vaccine 07/10/15 Given Zoster Vaccine Live 7 09/13/08 Given diphtheria-tetanus toxoids (DT) 10/29/03 Given 1Admin Note: [facility] 2Admin Note: Joseph SLIM [place] 3Admin Note: Joseph Rivera [facility] [place] 4Result Comment: [07/10/2015] zachcece rivera 5Admin Note: [...] 05/27/22 10:02:00 EST, Route to Pharmacy Electronically, [facility] #[id number], Partial fill upon patient requ... Start Date: [...] 06/25/22 10:09:00 EST, 05/27/22 10:09:00 EST, Tablet, [facility] #[id number], Partial fill upon patient request if the [...] Care Team Personnel Name: Saadia Abdalla Position: [facility] Onco RN Member Role: Primary Care Nurse Name: Janna Sibley MD Position: [facility] Primary Care Physician Member Role: PCP Address: Address: [address] [place] [id number] Name: Nasrin Graf RN Position: [facility] [place] Nurse Member Role: Primary Care Nurse Name: Aislinn Mccauley RN Position: [facility] RN Member Role: Primary Care Nurse Care Team Related Persons Name: AMIRA MURPHY Address: home [address] [facility] [phone] Name: AMIRA MURPHY Address: home [address] [place] [address] Name: AMIRA MURPHY Address: home [address] [place] [address] [place] Address: temporary 0 Name: TITO MURPHY Address: [address] [place] [address] Name: TITO MURPHY Address: home [address] [place] [address] Name: TITO MURPHY Address: home [address] [place] [address]
--- OUTSIDE RECORDS SUMMARY | 2023-12-27 06:46 | XMS_ITS | Continuity of Care Document ---
Author Organization [facility] Address [address] [place] [address]- Care Team Providers Care Degreasing Solution Mixer Name Role Phone Colt LANDIN, Jud Guzman Primary Care Physicia n Encounter [facility] [id number] Date(s): 08/19/21 - 09/18/21 [facility] [address] [place] [address]- Attending Physician: Freddie Mcgrath Admitting Physician: Freddie [...] Joseph Phelan MA 3Admin Note: Joseph Rivera [facility] pallavi ferrell 4Result Comment: [07/10/2015] [...] 08/21/21 13:28:00 EST, Route to Pharmacy Electronically, [facility] #[id number], Partial fill upon patient request if the [...]
--- OUTSIDE RECORDS SUMMARY | 2023-12-27 06:46 | XMS_ITS | Continuity of Care Document ---
Author Organization [facility] Address [address] [facility], [address] d Floor, [address] [place] [address]- Care Team Providers Care Top Bottom Attaching Machine Operator Name Role Phone Lobito Murguia DO Primary Care Physician Encounter [facility] Date(s): 01/11/20 - 02/10/20 [facility] [address], [address]rd Floor, [address] [place] [address]- [facility] Referring Physician: Nichelle Levy Allergies, Adverse Reactions, Alerts Substance Reaction Severity [...] Joseph Phelan MA 3Admin Note: Joseph Rivera [facility] pallavi ferrell 4Result Comment: [07/10/2015] joseph rivera 5Admin Note: Pallavi 6Admin Note: Pallavi 7Admin Note: diluent lot [id number] Exp 08/28 Medications amLODIPine 5 mg oral tablet 5 mg, 1, tablet, By Mouth, Daily, # 30 tablet, Refills 0, Tot. Refills 0, Maintenance, 12/26/19 14:29:00 EDT, Route to Pharmacy Electronically, [facility] #[id number], 160, cm, 11/29/19 15:13:00EDT, Height, 75, kg, 12/26/19 11:32:00 EDT, Dry Weight Start Date: 12/26/19 Status: Ordered aspirin 81 mg oral delayed release tablet 81 mg, By Mouth, Daily, # 30 tablet, Refills 0, Tot. Refills 0, Maintenance, 11/29/19 15:53:00 EDT,Route to Pharmacy Electronically, [facility] #[id number], 160, cm, 11/29/19 15:13:00 EDT, Height, 78.7, [...] 01/19/20 14:53:00 EDT, Route to Pharmacy Electronically, [facility], 160, cm, 11/29/19 15:13:... Start Date: 01/19/20 Status: Ordered gabapentin 300 mg oral capsule 300 mg, 1, capsule, By Mouth, 3 times a day, # 42 capsule, Refills 0, Tot. Refills 0, Maintenance, 02/09/20 17:47:00 EDT, Route to Pharmacy Electronically, [facility] #[id number], 160, cm, 11/29/19 15:13:00 EDT, Height, 75, kg, 12/26/19 11:32:00... Start Date: 02/09/20 Stop Date: 02/23/20 Status: Ordered lamotrigine 100 mg oral tablet 100 mg, 1, tablet, By Mouth, 2 times a day, # 180 tablet, Refills 1, Tot. Refills 1, Maintenance, 01/19/20 14:44:00 EDT, Route to Pharmacy Electronically, [facility], [facility], 160, cm, 11/29/19 15:13:00 EDT, Height, 75, k... Start Date: 01/19/20 Status: Ordered lamotrigine 25 mg oral tablet 25 mg, 1, tablet, By Mouth, 2 times a day, Take with 100mg tab for total daily dose of 125mg twice daily, # 180 tablet, Refills 1, Tot. Refills 1, Maintenance, 01/19/20 14:44:00 EDT, Route to Pharmacy Electronically, [facility], 160... Start Date: 01/19/20 Status: Ordered Lipitor 40 mg oral tablet 1 tablet = 40 mg, By Mouth, Daily at bedtime, # 30 tablet, 0 Refills, Maintenance, 12/26/19 14:30:00 EDT, Tablet, [facility] #[id number], 160, cm, 11/29/19 15:13:00 EDT, Height, 75, [...]
--- OUTSIDE RECORDS SUMMARY | 2023-12-27 06:46 | XMS_ITS | Continuity of Care Document ---
Author Organization [facility] Address [address] [facility], [address] [place] [address]- Care Team Providers Care Medical Diagnostic Radiographer Name Role Phone Colt LANDIN, Jud Guzman Primary Care Physicia n Encounter [facility] Date(s): 08/29/21 - 09/28/21 [facility] [employer] [facility] [address] [facility], [address] [place] [address]- Allergies, Adverse Reactions, Alerts Substance Reaction Severity [...] Joseph Phelan MA 3Admin Note: Joseph Rivera [facility] pallavi ferrell 4Result Comment: [07/10/2015] joseph rivera 5Admin Note: Pallavi 6Admin Note: Corn 7Admin Note: diluent lot [id number] Exp 08/28 [...] a schedule II opioid drug., 159, cm, 0... Start Date: 08/27/21 Status: Ordered gabapentin 300 [...] 08/21/21 13:28:00 EST, Route to Pharmacy Electronically, [facility] #[id number], Partial fill upon patient request if the [...]
--- OUTSIDE RECORDS SUMMARY | 2023-12-27 06:46 | XMS_ITS | Continuity of Care Document ---
Author Organization [facility] Address [address] [facility], [address] d Floor, [address] [place] [address]- Care Team Providers Care Plate Mill Mill Hand Name Role Phone Colt LANDIN, Jud Guzman Primary Care Physicia n Encounter [facility] Date(s): 03/01/20 - 06/29/20 [facility] [address], [address] Floor, [address] [place] [address]- Attending Physician: Delores Zamora MD Admitting Physician: Delores Zamora MD Allergies, Adverse Reactions, Alerts Substance Reaction [...] Joseph Phelan MA 3Admin Note: Joseph Rivera [facility] pallavi ferrell 4Result Comment: [07/10/2015] [...] Maintenance,05/14/20 13:01:00 EST, Route to Pharmacy Electronically, [facility], Partial fill upon patient request, 160, cm, 04/15/20 9:50:00 ED... Start Date: 05/14/20 Status: Ordered lamotrigine 100 mg oral tablet 100 mg, 1, tablet, By Mouth, 2 times a day, Take with 25mg tablet for total 125mg twice daily, # 180 tablet, Refills 0, Tot. Refills 0, Maintenance, 05/14/20 13:01:00 EST, Route to Pharmacy Electronically, [facility], Partial fill u... Start Date: [...]
--- OUTSIDE RECORDS SUMMARY | 2023-12-27 06:46 | XMS_ITS | Continuity of Care Document ---
Author Organization [facility] Address [address] [place] [address]- Care Team Providers Care Retail Assistant Manager Name Role Phone Toñito COLE, Janna Primary Care Physician ( [phone] [place] [facility] Date(s): 05/21/22 - 06/20/22 [facility] [address] [place] [address]- Attending Physician: Freddie Mcgrath Admitting Physician: AdmtrFreddie Referring Physician: Admtr, Ar8 Allergies, Adverse Reactions, [...] virus vaccine, inactivated 5 04/26/09 Gi henri [id number] 12y+ bivalent booster vax 03/12/22 Recorded SARS-CoV-2 mRNA (vaowlvt-lgmd-tibsm) vax 10/17/21 Recorded SARS-CoV-2 (COVID-19) mRNA BNT-162b2 vac 03/28/21 Recorded pneumococcal 23-valent vaccine 09/24/16 Given pneumococcal 23-valent vaccine 6 10/24/04 Given pneumococcal 13-valent vaccine 07/10/15 Given Zoster Vaccine Live 7 09/13/08 Given diphtheria-tetanus toxoids (DT) 10/29/03 Given 1Admin Note: [facility] 2Admin Note: [facility] 3Admin Note: [facility] pallavi nc 4Result Comment: [07/10/2015] chelo rivera 5Admin Note: [...] 05/27/22 10:02:00 EST, [id number], Partial fill upon patient requ... Start Date: [...] 06/25/22 10:09:00 EST, 05/27/22 10:09:00 EST, Tablet, [facility] #[id number], Partial fill upon patient request if the [...] Care Team Personnel Name: Saadia Abdalla Position: [facility] Onco RN Member Role: Primary Care Nurse Name: Janna Sibley MD Position: [facility] Primary Care Physician Member Role: PCP Address: Address: [address] [place] [address] [address] [place], [place] [address] Name: Nasrin Graf RN Position: [facility] AMB Nurse Member Role: Primary Care Nurse Name: Aislinn Mccauley RN Position: [facility] RN Member Role: Primary Care Nurse Care Team Related Persons Name: AMIRA MURPHY Address: home [address] [facility] [facility] [id number] Name: AMIRA MURPHY Address: home [address] [place] [address] [place] Address: temporary 0 Name: AMIRA MURPHY Address: home [address] [place] [address] Name: TITO MURPHY Address: home [address] [place] [address] [place] Name: TITO MURPHY Address: home [address] [place] [address] Name: TITO MURPHY Address: home [address] [place] [address]
--- OUTSIDE RECORDS SUMMARY | 2023-12-27 06:46 | XMS_ITS | Continuity of Care Document ---
Author Organization [facility] Address [address] [place] [address]- Care Team Providers Care Production Control Expediter Name Role Phone Lobito Murguia DO Primary Care Physician [facility] Date(s): 11/29/19 - 11/29/[address] [address]- [facility] Discharge Disposition: A-D/C Home Attending Physician: Sánchez Diaz MD Admitting Physician: Alma Rosa Coughlin MD Referring Physician: Not on Staff, Referring [...] [facility] 2Admin Note: Joseph RIVERA [facility] 3Admin Note: Joseph Rivera [facility] 4Result Comment: [07/10/2015] joseph rivera 5Admin Note: Tapan 6Admin Note: Tapan 7Admin Note: diluent lot [id number] Exp 08/28 Medications aspirin 81 mg oral delayed release tablet 81 mg, By Mouth, Daily, # 30 tablet, Refills 0, Tot. Refills 0, Maintenance, 11/29/19 15:53:00 EDT,Route to Pharmacy Electronically, [facility][id number], 160, cm, 11/29/19 15:13:00 EDT, Height, 78.7, [...] 03/09/19 11:53:31 EDT, Route to Pharmacy Electronically, [id number], [facility] Start Date: 03/09/19 Stop Date: 03/03/20 Status: Ordered CPAP Machine See Instructions, # 1 each, Refills 12, Tot. Refills 12, Maintenance, DX. SEBASTIAN CPAP at 12-16 cm H20 with heated humidifier and airfit F20 mefium full face mask please include tubings and refills, 02/25/17 13:27:26, Compound Start Date: 02/25/17 Status: Ordered gabapentin 800 mg oral tablet 1 tablet = 800 mg, By Mouth, 4 times a day, # 360 tablet, 1 Refills, Maintenance, 10/06/19 14:20:00EDT, Tablet, [facility], 160, cm, 08/09/19 8:24:00 EST, Height, 91, kg, 181:18:00 EDT, Dry Weight Start Date: 10/06/19 Stop [...] to Pharmacy Electronically, [facility], 160... Start Date: 10/06/19 Status: [...] 0 Refills, Maintenance, 06/06/19 11:07:22 EST, [facility], 160, cm, 04/12/19 14:14:39 EDT, Height, 91, kg, 02/16/18 1:18:19 EDT, Dry Weight Start Date: 06/06/19 Status: Ordered Problem List Condition Effective Dates [...] of consciousness(Confirmed) Active Urge urinary incontinence(Confirmed) Active Results Orders for Microbiology Reports Name Date Urine Culture (URINE CULTURE) 11/29/19 Microbiology Reports TEST:Urine Culture STATUS:Unauthenticated BODY SITE: SOURCE:URINE COLLECTED DATE/TIME:11/29/19 10:39 AM Urine Culture SPECIMEN DESCRIPTION : URINE SPECIAL REQUESTS : NONE Reflexed from [id number] REPORT STATUS : PRELIMINARY REPORT Radiology Reports * Exam Date Time Procedure Performing Provider Status 11/28/19 5:48 PM Chest 2 Views Frontal and Lat Jair Farr; Auth (Verified) Notes: (Chest 2 Views Frontal and Lat) Reason For Exam: Shortness of Breath RESULT: Chest 2 Views Frontal and Lat Chest 2 Views Frontal and Lat Refer to EMR; Reason: Shortness of Breath; Clinical Question(s): CHF; Hx of Present Illness: pt states that she has had difficulty with balance for a few months now. pt states that she had a CT yet had not herd any results. pt states that it is much worse today. pt denies any other symptoms at thistime. pt denies any falls; Other Objective Findings: pt placed in wheel chair for safty, speaking COMPARISON: 02/15/2018 FINDINGS: LINES AND TUBES: None. LUNGS AND PLEURA: Clear lungs. Normal pulmonary vascularity. No pleural effusion. No pneumothorax. HEART, MEDIASTINUM AND KUN: Heart is normal in size. Normal mediastinal and hilar contour. BONES AND SOFT TISSUES: No acute abnormality. IMPRESSION: No acute abnormality. WSN: [id number] Ordering Physician: Contreras Grimaldo Dictated By: Pasha Garcia MD Dictated Date/Time: 11/28/19 5:53 pm Reviewed By: Pasha Garcia MD Signed By: Pasha Garcia MD Signed Date/Time: 11/28/19 5:53 pm Transcribed By: STEPHANIE Transcribed Date/Time: 11/28/19 5:52 pm Vital Signs Most recent to oldest [Reference Range]: 1 2 3 Height 160 cm (11/29/19 3:13 PM) 160 cm (11/29/19 11:15 AM) 160 cm (11/29/19 7:28 AM) Weight 78.7 kg (11/28/19 3:11 PM) Oxygen Saturation [94-100 %] 100 % (11/29/19 3:13 PM) 99 % (11/29/19 11:15 AM) 97 % (11/29/19 7:28 AM) Pulse Rate [55-90 bpm] 79 bpm (11/29/19 3:13 PM) 56 bpm (11/29/19 11:15 AM) 53 bpm *L* (11/29/19 7:28 AM) Body Mass Index [18.5-24.99] 30.74 *>HHI* (11/28/19 3:11 PM) Blood Pressure [90-138/55-84 mm Hg] 140/68mm Hg *H* (11/29/19 3:13 PM) 115/65mm Hg (11/29/19 11:15 AM) 120/61mm Hg (11/29/19 9:44 AM) Respiratory Rate [16-30 br/min] 17 br/min (11/29/19 3:48 PM) 18 br/min (11/29/19 3:13 PM) 18 br/min (11/29/19 2:48 PM) Temperature [96.8-100.4 DegF] 97.7 DegF (11/29/19 3:13 PM) 97.7 DegF (11/29/19 11:15 AM) 97.6 DegF (11/29/19 7:28 AM) Liters per Minute 0 L/min (11/28/19 6:13 AM) Mode of Delivery (Oxygen) Room air (11/29/19 3:13 PM) Room air (11/29/19 11:15 AM) Room air (11/29/19 7:28 AM) Blood pressure sites Arm, left (11/29/19 3:13 PM) Arm, left (11/29/19 11:15 AM) Arm, left (11/29/19 7:28 AM) Temperature Route Oral (11/29/19 3:13 PM) Oral (11/29/19 11:15 AM) Oral (11/29/19 7:28 AM) Dry Weight 78.7 kg (11/28/19 3:11 PM) Social History Social History Type Response Smoking Status Never smoker entered on: 05/23/14 Sex Female
--- OUTSIDE RECORDS SUMMARY | 2023-12-27 06:46 | XMS_ITS | Continuity of Care Document ---
Author Organization [facility] Address [address] [place] [address]- Care Team Providers Care Clay Puddler Name Role Phone Not on Staff, PCP Primary Care Physician Unavail able [facility]counter [facility] Date(s): 08/09/19 - 08/19/19 [facility] [address] [place] [id number] Attending Physician: Freddie Mcgrath Admitting Physician: [...] Joseph Phelan MA 3Admin Note: Joseph Rivera [facility] pallavi ferrell 4Result Comment: [07/10/2015] joseph [...] 03/09/19 11:53:31 EDT, Route to Pharmacy Electronically, [id number], [facility] Start Date: 03/09/19 [...] 3 each, 3 Refills, Maintenance, 08/23/17 10:17:27, [place], 1sprays Nares, Both 2 times a day,x90 days Start Date: 08/23/17 Stop Date: 08/18/18 Status: Ordered gabapentin 800 mg oral tablet 1 tablet = 800 mg, By Mouth, 4 times a day, # 360 tablet, 3 Refills, Maintenance, 08/18/18 16:15:55EST, Tablet Start Date: 08/18/18 Stop Date: 08/13/19 Status: Ordered lamotrigine 100 mg oral tablet 100 mg, 1, tablet, By Mouth, 2 times a day, # 180 tablet, Refills 1, Tot. Refills 1, Maintenance, 03/29/19 15:57:10 EDT, Route to Pharmacy Electronically, [id number], [facility], New increased dose Start Date: 03/29/19 Status: Ordered lamotrigine 25 mg oral tablet 25 mg, 1, tablet, By Mouth, 2 times a day, Take with 100mg tab for total daily dose of 125mg twice daily, # 180 tablet, Refills 1, Tot. Refills 1, Maintenance, 03/16/19 13:04:01 EDT, Route to Pharmacy Electronically, [id number]... Start Date: 03/16/19 Status: Ordered lisinopril 40 mg oral tablet [...]
--- OUTSIDE RECORDS SUMMARY | 2023-12-27 06:46 | XMS_ITS | Continuity of Care Document ---
Author Organization [facility] Address [address] [place] [address]- Care Team Providers Care Stores Despatch Hand Name Role Phone Colt LANDIN, Jud Guzman Primary Care Physicia n Encounter [facility] Date(s): 04/15/20 - 04/22/20 [facility] [address] [place] [address]- [facility] Attending Physician: Not on Staff, Attending MD Allergies, Adverse Reactions, Alerts Substance Reaction [...] diphtheria-tetanus toxoids (DT) 10/29/03 Given 1Admin Note: [facility] 2Admin Note: Chelo Phelan [place] 3Admin Note: Chelo Rivera [facility] pallavi al 4Result Comment: [07/10/2015] chelo rivera 5Admin Note: [...] oldest [Reference Range]: 1 Height 160 cm (04/15/20 9:50 AM) Weight 76.4 kg (04/15/20 9:50 AM) Oxygen Saturation [94-100 %] 96 % (04/15/20 9:50 AM) Pulse Rate [55-90 bpm] 74 bpm (04/15/20 9:50 AM) Body Mass Index [18.5-24.99] 29.84 *H* (04/15/20 9:50 AM) Blood Pressure [90-138/55-84 mm Hg] 140/ 62mm Hg *H* (04/15/20 9:50 AM) Mode of Delivery (Oxygen) Room air (04/15/20 9:50 AM) Blood pressure sites Arm, left (04/15/20 9:50 AM) Weight Obtained Via Standing scale (04/15/20 9:50 AM) Social History Social History Type Response Smoking Status Never smoker entered on: 05/23/14 Sex Female
--- OUTSIDE RECORDS SUMMARY | 2023-12-27 06:46 | XMS_ITS | Continuity of Care Document ---
Author Organization [facility] Address [address] [place] [address]- Care Team Providers Care Refinery Operator Light Ends Recovery Name Role Phone Janna Sibley MD Primary Care Physician Encounter [facility] Date(s): 12/01/23 - 12/08/[address] [address]- Encounter Diagnosis Obstructive sleep apnea(Discharge Diagnosis) - 12/01/23 Annual physical exam(Discharge Diagnosis) - 12/01/23 Diastolic dysfunction(Discharge Diagnosis) - 12/01/23 Bilateral hearing loss(Discharge Diagnosis) - 12/01/23 Hypercholesterolemia(Discharge Diagnosis) - 12/01/23 Hypertension(Discharge Diagnosis) - 12/01/23 Fibromyalgia(Discharge Diagnosis) - 12/01/23 Moderate persistent asthma(Discharge Diagnosis) - 12/01/23 Attending Physician: Janna Sibley MD Allergies, Adverse [...] vaccine, inactivated 6 04/26/09 Gi henri SARS-CoV-2(COVID-19)mRNA-LNP vac([id number]) 04/10/23 Recorded [id number] 12y+ bivalent booster vax 03/12/22 Recorded SARS-CoV-2 mRNA ([id number]) vax 10/17/21 Recorded SARS-CoV-2 (COVID-19) mRNA BNT-162b2 vac 03/28/21 Recorded SARS-CoV-2 (COVID-19) mRNA BNT-162b2 vac 08/15/20 Given SARS-CoV-2 (COVID-19) mRNA BNT-162b2 vac 07/25/20 Recorded pneumococcal 23-valent vaccine 09/24/16 Given pneumococcal 23-valent vaccine 7 10/24/04 Given pneumococcal 13-valent vaccine 07/10/15 Given Zoster Vaccine Live 8 09/13/08 Given diphtheria-tetanus toxoids (DT) 10/29/03 Given 1Result Comment: [facility] [id number] 2Admin Note[facility] 3Admin Note[facility] 4Admin Note: [facility] pallavi ms 5Result Comment: [07/10/2015] [facility] 6Admin Note: Pallavi 7Admin Note: Pallavi 8Admin Note: diluent lot [id number] Exp 08/28 [...] 13:21:00 EDT, Aerosol, Route to Pharmacy Electronically, [id number], [facility]... Start Date: 10/13/23 Stop Date: [...] 11/30/23 1:02:00EDT, Route to Pharmacy Electronically, [facility], 160, cm, 11/09/23 11:30:00 EDT, [...] 11:11:00 EDT, Route to Pharmacy Electronically, [facility], Partial fill upon patient request [...] 15:14:00 EDT, Route to Pharmacy Electronically, [facility], 160, cm, 12/01/23 9:58:00 EDT, Height, 77.3, kg, 10/29/23 13:00:00 EDT, Dry Weight Start Date: 12/06/23 Status: Ordered lisinopril 10 mg oral tablet See Instructions, TAKE 1 TABLET DAILY, # 90 tablet, Refills 1, Tot. Refills 1, Maintenance, 11/30/23 13:53:00 EDT, Instructions Replace Required Details, Route to Pharmacy Electronically, [facility], 160, cm, 11/09/23 11:30:00 EDT,... Start Date: 11/30/23 Status: Ordered Nitrostat 0.3 mg sublingual tablet 1 tablet = 0.3 mg, Sublingual, Every 5 minutes, PRN as needed for chest pain, not to exceed 3 doses/15 min--if pain persists, seek medical attention, # 25 tablet, 0 Refills, Maintenance, 06/16/23 10:10:00 EST, Tablet, [facility] #[id number], Part... Start Date: 06/16/23 Status: Ordered omeprazole 20 mg oral delayed release tablet 1 tablet = 20 mg, By Mouth, 2 times a day, # 180 tablet, 1 Refills, Maintenance, 07/20/23 13:18:00 EST, EC Tablet, [facility], Partial fill upon patient request [...] 13:44:00 EDT, Aerosol, Route to Pharmacy Electronically, [id number], [facility] #[id number], 160,... Start Date: 12/08/23 Stop Date: 01/07/24 Status: Ordered Symbicort 160mcg/4.5mcg Inhaler 2, puffs, Inhalation, 2 times a day, use with spacer chamber, # 3 capsule, Refills 3, Tot. Refills 3, Maintenance, 12/08/23 13:45:00 EDT, Aerosol, Route to Pharmacy Electronically, [id number], [facility], 1... Start Date: [...] Effective Dates Health Status Clinical Service Informant Obstructive sleep apnea Discharge Diagnosis 12/01/23 Annual physical exam Discharge Diagnosis 12/01/23 Diastolic dysfunction Discharge Diagnosis 12/01/23 Bilateral hearing loss Discharge Diagnosis 12/01/23 Hypercholesterolemia Discharge Diagnosis 12/01/23 Hypertension Discharge Diagnosis 12/01/23 Fibromyalgia Discharge Diagnosis 12/01/23 Moderate persistent asthma Discharge Diagnosis 12/01/23 Vital Signs Most recent to oldest [Reference Range]: 1 Height 160 cm (12/01/23 9:58 AM) Weight 77.6 kg (12/01/23 9:58 AM) Oxygen Saturation [94-100 %] 96 % (12/01/23 9:58 AM) Pulse Rate [55-90 bpm] 65 bpm (12/01/23 9:58 AM) Body Mass Index [18.5-24.99 kg/m2] 30.31 kg/m2 *>HHI* (12/01/23 9:58 AM) Blood Pressure [90-138/55-84 mm Hg] 128/ 69mm Hg (12/01/23 9:58 AM) Mode of Delivery (Oxygen) Room air (12/01/23 9:58 AM) Blood pressure sites Arm, left (12/01/23 9:58 AM) Weight Obtained Via Standing scale (12/01/23 9:58 AM) Social History Social History Type Response Smoking Status Never smoker entered on: 05/23/14 Sex Female Note * Arti Teran: PERFORM Event Display: Patient Education/Instruction Authored Date: [id number] Ambulatory Adult Visit Summary [facility] [address] [place] [address] Name: MILLER MURPHY : 1935?? Visit: 12/01/2023 09:55?? Ambulatory Visit Instructions ?? Your Care Team Primary Care Provider Janna Sibley MD? This Visit Provider Janna Sibley MD Your Diagnosis Obstructive sleep apnea Annual physical exam Diastolic dysfunction Vitals Signs Pulse Rate: 65 bpm Height: 160 cm Systolic Blood Pressure: 128 mm Hg Weight: 77.6 kg Diastolic Blood Pressure: 69 mm Hg Body Mass Index:??30.31 kg/m2??Critical Oxygen Saturation: 96 % Body surface area: 1.86 What to do next Scheduled Follow-Up Appointments Wednesday 3:30 PM EDT ?? With: Connie LANDIN, Elizabeth Forman Where: [facility] [address] [place] [address]- Status: Pending Wednesday 11:10 AM EDT ?? With: Janna Sibley MD Where: [facility] [address] [place] [address]- Status: Pending Wednesday 9:30 AM EDT ?? With: Michelle Jennings MD Where: [facility] [address] [facility] [address] [address]- Status: Pending 2023 3:00 PM EDT ?? With: Last Hatfield MD Where: [facility] Status: Pending Follow-Up Appointments Follow Up with??Janna Sibley MD When:??12/27/2024 10:10 AM EDT Why: MWV Where: [address] [place] [address]- Follow Up with??Janna Sibley MD When:??01/14/2024 11:10 AM EDT Why: 1M RETURN Where: [address] [place] [address]- Medications The list below reflects the information in our records and provided by you today along with any changes made during this visit. Please continue your medications until treatment is completed or stopped by your provider. If this is different from the information you have or there are other questions,please contact the prescribing provider. What How Much When Instructions Unchanged Albuterol (albuterol CFC free 90 mcg/ [...] 1 tab(s) Oral Twice a day Unchanged Chlorthalidone (chlorthalidone 25 mg oral tablet) 0.5 tab(s) Oral Daily Unchanged Clobetasol Topical (Clobetasol (Eqv-Temovate E)) Topically [...] mg oral tablet) 1 tab(s) Oral Daily Test Performed Below is a partial list of the tests performed during your Visit. You may have had other tests and procedures not included in this list. Please discuss all test results with your provider. Urinalysis Complete/Reflex Culture Lab Test Results Below is a partial list of the most recent Laboratory test results done during your Visit. You may have had other tests and procedures not included in this list. Please discuss all test results with your provider. Test Name Test Result Date/Time Urine Culture Results Final report 11/01/2023 16:33 EDT Ur Cult 1 No growth 11/01/2023 16:33 EDT Specific [place], Urine 1.020 11/01/2023 16:33 EDT pH, Urine 6.0 11/01/2023 16:33 EDT Protein, Urine Negative 11/01/2023 16:33 EDT Glucose, Urine Negative 11/01/2023 16:33 EDT Ketones, Urine Negative 11/01/2023 16:33 EDT Bilirubin, Urine Negative 11/01/2023 16:33 EDT Hemoglobin, Urine Negative 11/01/2023 16:33 EDT Nitrite, Urine Negative 11/01/2023 16:33 EDT Leukocyte, Urine 1+ 11/01/2023 16:33 EDT Urobilinogen 0.2 mg/dL 11/01/2023 16:33 EDT WBC's, Urine 11-30 11/01/2023 16:33 EDT RBC's, Urine None seen 11/01/2023 16:33 EDT Bacteria None seen 11/01/2023 16:33 EDT Epith. Cells 0-10 11/01/2023 16:33 EDT Casts None seen 11/01/2023 16:33 EDT Urine Color Yellow 11/01/2023 16:33 EDT Urine Appearance Clear 11/01/2023 16:33 EDT Ur Microscopic See below: 11/01/2023 16:33 EDT Urinalysis Reflex Comment 11/01/2023 16:33 EDT Medications and Immunizations Administered Medications Given During Visit No medications given during this visit.?? Allergies (NKA means No Known Allergies) hydrOXYzine??(Itching) [...] are strongly encouraged to quit. Please call [employer] at [phone] or [phone] Trip (7154) or log in to [email or web address] for referrals to smoking cessation programs. ?? The National Suicide Prevention Hotline is available 11/01 if you or someone you know needs to find a reason to keep living. By calling 1-733-711-talk (0994) you'll be connected to a skilled, trained counselor at a crisis center in your area. [facility] Portal You can view and manage your care through the patient portal or by using a health care patsy of your choosing. [employer] is a website that allows you to securely view your medical information including your hospital discharge summary, office visit summaries, medications and follow-up visits. You can also request appointments, renew medications, and request access to your medical information using a health care patsy of your choosing, or just ask a question. You can enroll at [email or web address] or register during your next office visit. [facility], in keeping with [facility] guidance, no longer requires face masks [...] primary care provider, you may find a [facility] provider by calling [facility] [facility] at [phone]. Patient Care team information Care Team Personnel Name: Saadia Abdalla Position: [facility] Onco RN Member Role: Primary Care Nurse Name: Janna Sibley MD Position: [facility] Physician - Primary Care Member Role: PCP Address: Address: [address] [place] [address]- Name: Aislinn Mccauley RN Position: [facility] RN Member Role: Primary Care Nurse Care Team Related Persons Name: AMIRA MURPHY Address: [address] [place] [address] Address: [place] [address] Name: AMIRA MURPHY Address: home [address] [place] [address] Name: AMIRA MURPHY Address: home [address] [facility] [address] Name: TITO MURPHY Address: [address] [address] Name: TITO MURPHY Address: [address] [place] [address] Name: TITO MURPHY Address: [address] [address]
--- OUTSIDE RECORDS SUMMARY | 2023-12-27 06:46 | XMS_ITS | Continuity of Care Document ---
Author Organization [facility] Address [address] [place] [address]- Care Team Providers Care Loading Unit Operator Name Role Phone Toñito COLE, Janna Primary Care Physician Encounter [facility] Date(s): 12/08/21 - 01/07/22 [facility] [address] [place] [address] Attending Physician: Freddie Mcgrath Admitting [...] Note: Joseph Phelan [place] 3Admin Note: Joseph [facility] pallavi ferrell 4Result Comment: [07/10/2015] joseph [...] 08/21/21 13:28:00 EST, Route to Pharmacy Electronically, [id number], Partial fill upon patient request if the [...]
--- OUTSIDE RECORDS SUMMARY | 2023-12-27 06:46 | XMS_ITS | Continuity of Care Document ---
Author Organization [facility] Address [address] [place] [address]- Care Team Providers Care Medical Pathology Teacher Name Role Phone Colt LANDIN, Jud Guzman Primary Care Physicia n Encounter [facility] Date(s): 10/10/20 - 11/09/20 [facility] [address] [place] [address]- Allergies, Adverse Reactions, Alerts Substance Reaction Severity [...] [facility] 2Admin Note: Joseph Phelan [place] 3Admin Note: Joseph Rivera [facility] [place] 4Result Comment: [07/10/2015] joseph rivera 5Admin Note: [...] 25 mg, 1, tablet, By Mouth, Daily, Refills 0, Maintenance, 09/20/20 15:14:00 EDT, Partial fill uponpatient request if the prescription is for a schedule II opioid drug. Start Date: 09/20/20 Status: Ordered CPAP Equipment Maintenance, 04/15/20 10:10:00 [...] prescriptionis for a schedule II opioid drug., ginette Riojas, ... Start Date: 10/15/20 Stop Date: 01/13/21 Status: Ordered PreserVision AREDS 2 oral capsule By Mouth, Daily, 0 Refills, Maintenance, 04/15/20 10:06:00 EDT Start Date: 04/15/20 Status: Ordered sertraline 25 mg oral tablet 1 tablet = 25 mg, By Mouth, Daily, # 30 tablet, 1 Refills, Maintenance, 10/30/20 13:21:00 EDT, Tablet, [facility] #[id number], Partial fill upon patient request if the prescription is for a schedule II opioid drug., ginette Riojas, 10/30/20 12:49:00 EDT... Start Date: 10/30/20 Status: [...]
--- OUTSIDE RECORDS SUMMARY | 2023-12-27 06:46 | XMS_ITS | Continuity of Care Document ---
Author Organization [facility] Address [address] [place], [place] [address]i ve [address] [place] [address]- Care Team Providers Care Folding Machine Operator Name Role Phone Toñito COLE, Janna Primary Care Physician Encounter [facility] Date(s): 06/22/23 - 07/22/[address] [place] [address]- Allergies, Adverse Reactions, Alerts Substance Reaction Severity [...] virus vaccine, inactivated 5 04/26/09 Gi henri [id number] 12y+ bivalent booster vax 03/12/22 Recorded SARS-CoV-2 mRNA (qbadljy-tvwm-mbzps) vax 10/17/21 Recorded SARS-CoV-2 (COVID-19) mRNA BNT-162b2 vac 03/28/21 Recorded SARS-CoV-2 (COVID-19) mRNA BNT-162b2 vac 08/15/20 Given pneumococcal 23-valent vaccine 09/24/16 Given pneumococcal 23-valent vaccine 6 10/24/04 Given pneumococcal 13-valent vaccine 07/10/15 Given Zoster Vaccine Live 7 09/13/08 Given diphtheria-tetanus toxoids (DT) 10/29/03 Given 1Admin Note: [facility] 2Admin Note: Ajite ROMELIA Pallavi [place] 3Admin Note: Ajite Romelia [facility] pallavi ak 4Result Comment: [07/10/2015] chelo rivera 5Admin Note: [...] Maintenance,11/17/22 8:37:00 EDT, Route to Pharmacy Electronically, [facility][id number], Partial fill upon patient request if the [...] Required Details, Route to Pharmacy Electronically, [facility], 159, cm, 03/11/23 9:45:00 EDT, Height, 81, kg, 0... Start Date: 05/17/23 Status: Ordered Nitrostat 0.3 mg sublingual tablet 1 tablet = 0.3 mg, Sublingual, Every 5 minutes, PRN as needed for chest pain, not to exceed 3 doses/15 min--if pain persists, seek medical attention, # 25 tablet, 0 Refills, Maintenance, 06/16/23 10:10:00 EST, Tablet, [facility] #[id number], Part... Start Date: 06/16/23 Status: Ordered omeprazole 20 mg oral delayed release tablet 1 tablet = 20 mg, By Mouth, 2 times a day, # 180 tablet, 1 Refills, Maintenance, 07/20/23 13:18:00 EST, EC Tablet, [facility], Partial fill upon patient request [...] Care Team Personnel Name: Saadia Abdalla Position: [facility] Onco RN Member Role: Primary Care Nurse Name: Janna Sibley MD Position: [facility] Physician - Primary Care Member Role: PCP Address: Address: [address] [place] [address] [address] [place], [place] [address] Name: Aislinn Mccauley RN Position: [facility] RN Member Role: Primary Care Nurse Care Team Related Persons Name: AMIRA MURPHY Address: home [address] [place] [address] [place] Address: [facility] Name: AMIRA MURPHY Address: home [address] [facility] [address] [address] Name: AMIRA MURPHY Address: home [address] [place] [address] Name: TITO MURPHY Address: home [address] [place] [address] [place] Name: TITO MURPHY Address: home [address] [place] [address] Name: TITO MURPHY Address: home [address] [place] [address]
--- OUTSIDE RECORDS SUMMARY | 2023-12-27 06:46 | XMS_ITS | Continuity of Care Document ---
Author Organization [facility] Address [address] [place] [address]- Care Team Providers Care Real Estate Associate Attorney Name Role Phone Toñito COLE, [facility] Primary Care Physician [facility] Date(s): 05/20/22 - 06/19/22 [facility] [address] [place] [address]- Allergies, Adverse Reactions, Alerts Substance Reaction Severity [...] virus vaccine, inactivated 5 04/26/09 Gi henri [id number] 12y+ bivalent booster vax 03/12/22 Recorded SARS-CoV-2 mRNA (tdubnka-pcxy-udnna) vax 10/17/21 Recorded SARS-CoV-2 (COVID-19) mRNA BNT-162b2 vac 03/28/21 Recorded pneumococcal 23-valent vaccine 09/24/16 Given pneumococcal 23-valent vaccine 6 10/24/04 Given pneumococcal 13-valent vaccine 07/10/15 Given Zoster Vaccine Live 7 09/13/08 Given diphtheria-tetanus toxoids (DT) 10/29/03 Given 1Admin Note: [facility] 2Admin Note: Joseph Phelan [place] 3Admin Note: Joseph Romelia [facility] pallavi ar 4Result Comment: [07/10/2015] zachcece rivera 5Admin Note: [...] Route to Pharmacy Electronically, [facility][id number], Partial fill upon patient requ... Start Date: [...] 06/25/22 10:09:00 EST, 05/27/22 10:09:00 EST, Tablet, [facility] #[id number], Partial fill upon patient request if the [...] Care Team Personnel Name: Saadia Abdalla Position: [facility] Onco RN Member Role: Primary Care Nurse Name: Janna Sibley MD Position: [facility] Primary Care Physician Member Role: PCP Address: Address: [address] [place] [address] [address] [place], [place] [address] Name: Nasrin Graf RN Position: [facility] DOROTHEA Nurse Member Role: Primary Care Nurse Name: Aislinn Mccauley RN Position: [facility] RN Member Role: Primary Care Nurse Care Team Related Persons Name: AMIRA MURPHY Address: home [address] [place], [place] Name: AMIRA MURPHY Address: home [address] [place], [place] Address: temporary 0 Name: AMIRA MURPHY Address: home [address] [facility] [address] Name: TITO MURPHY Address: home [address] [place] [address] Name: TITO MURPHY Address: home [address] [place], [place] Name: TITO MURPHY Address: home [address] [place] [address]
--- OUTSIDE RECORDS SUMMARY | 2023-12-27 06:46 | XMS_ITS | Continuity of Care Document ---
Author Organization [facility] Adult Address [address] [place] [address]- Care Team Providers Care Swaging Machine Operator Name Role Phone Janna Sibley MD Primary Care Physician [place] [facility] [place] - 08/31/22 [facility] Adult [address] [place] [address]- Encounter Diagnosis Frequent falls(Discharge Diagnosis) - 08/24/22 Attending Physician: Janna Sibley MD Allergies, Adverse [...] virus vaccine, inactivated 5 04/26/09 Gi henri [id number] 12y+ bivalent booster vax 03/12/22 Recorded SARS-CoV-2 mRNA (flspfyt-fmfs-twstp) vax 10/17/21 Recorded SARS-CoV-2 (COVID-19) mRNA BNT-162b2 vac 03/28/21 Recorded pneumococcal 23-valent vaccine 09/24/16 Given pneumococcal 23-valent vaccine 6 10/24/04 Given pneumococcal 13-valent vaccine 07/10/15 Given Zoster Vaccine Live 7 09/13/08 Given diphtheria-tetanus toxoids (DT) 10/29/03 Given 1[facility] 2Admin Note: Joseph NICOLE [place] 3Admin Note: Ajite Nicole [facility] pallavi [place] 4Result Comment: [07/10/2015] joseph nicole 5Admin Note: [...] 08/24/22 11:35:00 EST, Route to Pharmacy Electronically, [id number], Partial fill upon patient request if the [...] Diagnosis Diagnosis Type Effective Dates Health Status Cl inical Service Informant Frequent falls Discharge Diagnosis 08/24/22 Vital Signs Most recent to oldest [Reference Range]: 1 Height 159 cm (08/24/22 10:42 AM) Weight 77 kg (08/24/22 10:42 AM) Oxygen Saturation [94-100 %] 97 % (08/24/22 10:42 AM) Pulse Rate [55-90 bpm] 81 bpm (08/24/22 10:42 AM) Body Mass Index [18.5-24.99 kg/m2] 30.46 kg/m2 *>HHI* (08/24/22 10:42 AM) Blood Pressure [90-138/55-84 mm Hg] 109/ 69mm Hg (08/24/22 10:42 AM) Mode of Delivery (Oxygen) Room air (08/24/22 10:42 AM) Blood pressure sites Arm, left (08/24/22 10:42 AM) Weight Obtained Via Patient/family state d (08/24/22 10:42 AM) Social History Social History Type Response Smoking Status Never smoker entered on: 05/23/14 Sex Female Note * Nasra Montalvo: PERFORM, SIGN, VERIFY Event Display: Patient Education/Instruction Authored Date: [id number] [facility] Clinical Summary Name MILLER MURPHY Age 87 Years 1935 PCP Janna Sibley MD PCP Visit Date 08/24/2022 10:33:00 Additional Instructions: Scheduled Appointments?? Future Appointments ?*[facility]??Cardiology1 ?[address]??[place],??[place],??[address] ?Phone:??--?Fax:??-- ?Appt. Date:??09/15/2022?12:15 PM ?Scheduled Provider:??Francia COLE, Nadia Blas ?*[facility]??Neurology ?[address] ?[address] ?[place],??[place],??[address] ?Phone:??--?Fax:??-- ?Appt. Date:??10/01/2022?8:30 AM ?Scheduled Provider:??Michelle Jennings MD ?*[facility] ?[address]??[place],??[place],??[address] ?Phone:??--?Fax:??-- ?Appt. Date:??11/03/2022?1:05 PM ?Scheduled Provider:??Janna Sibley MD Follow-Up Instructions ?? Diagnosis Mild cognitive impairment of uncertain or unknown etiology; Repeated falls; Polyneuropathy, unspecified Medications: Please continue your medications until treatment is completed or stopped by your provider. Discuss any questions related to medications with your provider. New Medications [facility][id number], [address] [place], [place] [id number], [phone] Chlorthalidone (chlorthalidone 25 mg oral tablet) half tablet Oral Daily. Refills: 1. Next Dose: Medications to Continue with No Changes These medications were not printed or sent to your pharmacy Amlodipine (amLODIPine 10 mg oral tablet) 1 tab(s) Oral Daily. Refills: 1. Next Dose: Aspirin (aspirin 81 mg oral delayed release tablet) 1 tab(s) Oral Daily. Next Dose: Atorvastatin (atorvastatin 40 mg oral [...] TWICE PER WEEK. Refills: 2. Next Dose: Gabapentin (gabapentin 300 mg oral capsule) 1 capsule Oral 3 times a day for 90 Days. Refills: 2. Next Dose: Lamotrigine (lamotrigine 100 mg oral tablet) 1 tab(s) Oral twice a day for 90 Days. Refills: 2. Next Dose: Lamotrigine (lamotrigine 25 mg oral tablet) 2 tab(s) Oral twice a day for 90 Days. dose increase. Refills: 2. Next Dose: Melatonin Daily at Bedtime. Next Dose: Multivitamin With Minerals (PreserVision AREDS 2 oral capsule) Oral Daily. Next Dose: Omeprazole (omeprazole 20 mg oral delayed release tablet) 1 tab(s) Oral twice a day for 90 Days. Refills: 1. Next Dose: vibegron (Gemtesa 75 mg oral tablet) 1 tab(s) Oral Daily. Refills: 11. Next Dose: Allergy Info:?? hydrOXYzine; imipramine Medications Given This Visit Future Orders ?No future orders Vital Signs Height 159 cm Weight 77 kg BMI 30.46 kg/m2 Blood Pressure 109 mm Hg/69 mm Hg Temperature Pulse Rate 81 bpm Respiratory Rate 02 Sat Mode of Delivery 97 %/Room air You can now view a summary of your hospital visit from the comfort of your home through a free online portal called Moogi. Moogi is a website that allows you to securely view your medical information including discharge summary, medications and follow-up visits. ??You can alsosend a secure electronic message to your doctor???s office to request appointments, renew medications or just ask a question. You can enroll at [email or web address] or register during your next office visit. [...] primary care provider, you may find a [facility] provider by calling [facility] at [phone]. For information about the plan of care [...] Care Team Personnel Name: Saadia Abdalla Position: [facility] Onco RN Member Role: Primary Care Nurse Name: Janna Sibley MD Position: [facility] Primary Care Physician Member Role: PCP Address: Address: [address] [place] [address] [address] [place], [place] [address] Name: Nasrin Graf RN Position: [facility] AMB Nurse Member Role: Primary Care Nurse Name: Aislinn Mccauley RN Position: [facility] RN Member Role: Primary Care Nurse Care Team Related Persons Name: AMIRA MURPHY Address: [address] Name: AMIRA MURPHY Address: [address] [place] Address: [facility] 0 Name: AMIRA MURPHY Address: home [address] [facility] [phone] Name: TITO MURPHY Address: home [address] [place] [address] Name: TITO MURPHY Address: [address] [place], [place] Name: TITO MURPHY Address: home [address] [place] [address]
--- OUTSIDE RECORDS SUMMARY | 2023-12-27 06:46 | XMS_ITS | Continuity of Care Document ---
Author Organization [facility] Adult Address [address] [place] [address]- Care Team Providers Care Packing Machine Inspector Name Role Phone Toñito COLE, [facility] Primary Care Physician [place] [facility] [place] 05/27/22 - 06/26/22 [facility] Adult [address] [place] [address]- Attending Physician: Freddie Mcgrath Admitting Physician: Freddie [...] virus vaccine, inactivated 5 04/26/09 Gi henri [id number] 12y+ bivalent booster vax 03/12/22 Recorded SARS-CoV-2 mRNA (npgpcdl-vdib-svflg) vax 10/17/21 Recorded SARS-CoV-2 (COVID-19) mRNA BNT-162b2 vac 03/28/21 Recorded pneumococcal 23-valent vaccine 09/24/16 Given pneumococcal 23-valent vaccine 6 10/24/04 Given pneumococcal 13-valent vaccine 07/10/15 Given Zoster Vaccine Live 7 09/13/08 Given diphtheria-tetanus toxoids (DT) 10/29/03 Given 1[facility] 2[facility] [place] 3[facility] Note: [facility] [place] 4Result Comment: [07/10/2015] [facility] 5[facility] Note: [...] study * Event Display: EKG Authored Date: Note * Event Display: Laboratory Result Scanned Authored Date: * Event Display: Non BH Cardiovascular Results Authored Date: * Event Display: Non BH Cardiovascular Results Authored Date: Patient Care team information Care Team Personnel Name: Saadia Abdalla Position: [facility] Onco RN Member Role: Primary Care Nurse Name: Janna Sibley MD Position: [facility] Primary Care Physician Member Role: PCP Address: Address: [address] [place] [id number] Name: Nasrin Graf RN Position: [facility] Nurse Member Role: Primary Care Nurse Name: Aislinn Mccauley RN Position: [facility] RN Member Role: Primary Care Nurse Care Team Related Persons Name: AMIRA MURPHY Address: home [address] [place], [place] Name: AMIRA MURPHY Address: [address] [place], [place] Address: [facility] 0 Name: AMIRA MURPHY Address: home [address] [place] [phone] Name: TITO MURPHY Address: home [address] [place] [address] [place] Name: TITO MURPHY Address: home [address] [place] [address] Name: TITO MURPHY Address: home [address] [place] [address]
--- OUTSIDE RECORDS SUMMARY | 2023-12-27 06:46 | XMS_ITS | Continuity of Care Document ---
Author Organization [facility] Address [address] [place] [address]- Care Team Providers Care Critical Care Physician Assistant Name Role Phone Toñito COLE, Janna Primary Care Physician Encounter [facility] Date(s): 08/19/23 - 09/18/[address] [address] Allergies, Adverse Reactions, Alerts Substance Reaction Severity [...] virus vaccine, inactivated 5 04/26/09 Gi henri [id number] 12y+ bivalent booster vax 03/12/22 Recorded SARS-CoV-2 mRNA (ersbcip-mcqn-iomzt) vax 10/17/21 Recorded SARS-CoV-2 (COVID-19) mRNA BNT-162b2 vac 10/8/21 Recorded SARS-CoV-2 (COVID-19) mRNA BNT-162b2 vac 08/15/20 Given pneumococcal 23-valent vaccine 09/24/16 Given pneumococcal 23-valent vaccine 6 10/24/04 Given pneumococcal 13-valent vaccine 07/10/15 Given Zoster Vaccine Live 7 09/13/08 Given diphtheria-tetanus toxoids (DT) 10/29/03 Given 1[facility] 2Admin Note: [facility] [place] 3Admin Note: [facility] [place] 4Result Comment: [07/10/2015] zache nicole 5Admin Note: [...] Refills, Maintenance, 01/15/22 16:23:00 EDT, Tablet, [facility], Partial fill upon patient request [...] Maintenance, 09/17/23 16:29:00 EDT, Route to Pharmacy Electronically,[facility][id number], Partial fill upon viral... Start Date: 09/17/23 [...] 13:09:00 EDT, Route to Pharmacy Electronically, [facility],Partial fill upon patient request if the prescripti... Start Date: 02/12/23 Status: Ordered lisinopril 10 mg oral tablet See Instructions, TAKE 1 TABLET DAILY, # 30 tablet, Refills 11, Maintenance, 05/17/23 8:21:00 EST, Instructions Replace Required Details, Route to Pharmacy Electronically, [facility], 159, cm, 03/11/23 9:45:00 EDT, Height, 81, kg, 0... Start Date: 05/17/23 Status: Ordered Nitrostat 0.3 mg sublingual tablet 1 tablet = 0.3 mg, Sublingual, Every 5 minutes, PRN as needed for chest pain, not to exceed 3 doses/15 min--if pain persists, seek medical attention, # 25 tablet, 0 Refills, Maintenance, 06/16/23 10:10:00 EST, Tablet, [id number], Part... Start Date: 06/16/23 Status: Ordered omeprazole [...] Abdalla Position: [facility] Onco RN Member Role: Primary Care Nurse Name: Janna Sibley MD Position: [facility] Physician - Primary Care Member Role: PCP Address: Address: [address] [place] [id number] Name: Aislinn Mccauley RN Position: [facility] RN Member Role: Primary Care Nurse Care Team Related Persons Name: AMIRA MURPHY Address: home [address] [place] [phone] Name: AMIRA MURPHY Address: home [address] [place] [address] Name: AMIRA MURPHY Address: home [address] [place] [address] [place] Address: temporary 0 Name: TITO MURPHY Address: home [address] [place] [address] [place] Name: TITO MURPHY Address: home [address] [place] [address] Name: TITO MURPHY Address: home [address] [place] [address]
--- OUTSIDE RECORDS SUMMARY | 2023-12-27 06:47 | XMS_ITS | Continuity of Care Document ---
Author Organization [facility] Adult Address [address] [place] [address]- Care Team Providers Care Foiling Machine Operator Name Role Phone Colt LANDIN, Jud Guzman Primary Care Physicia n [place] [facility] [place] 07[place]18[place]21 [facility] Adult [address] [place] [address]- Encounter Diagnosis Medicare annual wellness visit, subsequent(Discharge Diagnosis) - 07/11/21 Anxiety disorder(Discharge Diagnosis) - 07/11/21 Macular degeneration of left eye(Discharge Diagnosis) - 07/11/21 Obstructive sleep apnea(Discharge Diagnosis) - 07/11/21 Urge urinary incontinence(Discharge Diagnosis) - 07/11/21 Attending Physician: Jud Gregory NP Allergies, Adverse Reactions, Alerts Substance Reaction [...] [facility]ID [facility] 3Admin Note: [facility] [place] 4Result Comment: [07/10/2015] z[facility] nicole 5Admin Note: [...] Effective Dates Health Status Clinical Service Informant Medicare annual wellness visit, subsequent Discharge Diagnosis 07/11/21 Anxiety disorder Discharge Diagnosis 07/11/21 Macular degeneration of left eye Discharge Diagnosis 07/11/21 Obstructive sleep apnea Discharge Diagnosis 07/11/21 Urge urinary incontinence Discharge Diagnosis 07/11/21 Vital Signs Most recent to oldest [Reference Range]: 1 Height 159 cm (07/11/21 8:18 AM) Weight 89 kg (07/11/21 8:18 AM) Oxygen Saturation [94-100 %] 99 % (07/11/21 8:18 AM) Pulse Rate [55-90 bpm] 70 bpm (07/11/21 8:18 AM) Body Mass Index [18.5-24.99] 35.2 *>HHI* (07/11/21 8:18 AM) Blood Pressure [90-138/55-84 mm Hg] 129/ 66mm Hg (07/11/21 8:18 AM) Mode of Delivery (Oxygen) Room air (07/11/21 8:18 AM) Blood pressure sites Arm, left (07/11/21 8:18 AM) Weight Obtained Via Standing scale (07/11/21 8:18 AM) Social History Social History Type Response Smoking Status Never smoker entered on: 05/23/14 Sex Female
--- OUTSIDE RECORDS SUMMARY | 2023-12-27 06:47 | XMS_ITS | Continuity of Care Document ---
Author Organization [facility] Adult Address [address] [place] [address]- Care Team Providers Care Manager Store Name Role Phone Toñito COLE, [facility] Primary Care Physician [place] [facility] [place]s): 09/25/22 - 10/25/22 [facility] Adult [address] [place] [address]- Allergies, Adverse Reactions, Alerts Substance Reaction Severity [...] virus vaccine, inactivated 5 04/26/09 Gi henri [id number] 12y+ bivalent booster vax 03/12/22 Recorded SARS-CoV-2 mRNA (jkbyxfq-swmo-xuaoo) vax 10/17/21 Recorded SARS-CoV-2 (COVID-19) mRNA BNT-162b2 vac 03/28/21 Recorded pneumococcal 23-valent vaccine 09/24/16 Given pneumococcal 23-valent vaccine 6 10/24/04 Given pneumococcal 13-valent vaccine 07/10/15 Given Zoster Vaccine Live 7 09/13/08 Given diphtheria-tetanus toxoids (DT) 10/29/03 Given 1Admin Note: [facility] 2Admin Note: Joseph RIVERA [facility] 3Admin Note: Joseph Rivera [facility] 4Result Comment: [07/10/2015] zachcece rivera 5Admin [...] Route to Pharmacy Electronically, [facility][id number], Partial fill upon patient request if the [...] Maintenance,11/17/22 8:37:00 EDT, Route to Pharmacy Electronically, [facility][id number], Partial fill upon patient request if the [...] 11/17/22 8:37:00 EDT, Route to Pharmacy Electronically, [id number], 159, cm, 10/01/22 8:32:00 EDT, Height, 81, kg, 12/10/21 9:01:00 EDT, Dry Weight Start Date: 11/17/22 Status: Ordered lamotrigine 100 mg oral tablet 1, tablet, By Mouth, 2 times a day, for 90 days, # 180 tablet, Refills 2, Tot. Refills 2, Hard Stop11/17/22 8:37:00 EDT, 02/20/22 8:37:00 EDT, Route to Pharmacy Electronically, [facility], 159, cm, 02/12/22 13:41:00 EDT, Height, 81... Start Date: 02/20/22 Stop Date: 11/17/22 Status: Ordered lamotrigine 25 mg oral tablet 50 mg, 2, tablet, By Mouth, 2 times a day, dose increase, # 360 tablet, Refills 3, Tot. Refills 3, Maintenance, 11/17/22 8:38:00 EDT, Route to Pharmacy Electronically, [facility] #[id number], Partial fill upon patient request if the prescription... Start Date: 11/17/22 Status: Ordered lamotrigine 25 mg oral tablet 50 mg, 2, tablet, By Mouth, 2 times a day, for 90 days, dose increase, # 360 tablet, Refills 2, Tot. Refills 2, Hard Stop 11/17/22 8:38:00 EDT, 02/20/22 8:38:00 EDT, Route to Pharmacy Electronically,[facility], Partial fill upon pa... Start [...] Name: Saadia Abdalla Position: [facility] Onco RN Member Role: Primary Care Nurse Name: Janna Sibley MD Position: [facility] Primary Care Physician Member Role: PCP Address: Address: [address] [place] [address] [address] [place], [place] [address] Name: Nasrin Graf RN Position: [facility] [place] Nurse Member Role: Primary Care Nurse Name: Aislinn Mccauley RN Position: [facility] RN Member Role: Primary Care Nurse Care Team Related Persons Name: AMIRA MURPHY Address: home [address] [facility] [phone] Name: AMIRA MURPHY Address: home [address] [place] [address] Address: temporary 0 Name: AMIRA MURPHY Address: [address] [address] Name: TITO MURPHY Address: [address] [address] Name: TITO MURPHY Address: [address] [address] Name: TITO MURPHY Address: [address] [address]
--- OUTSIDE RECORDS SUMMARY | 2023-12-27 06:47 | XMS_ITS | Continuity of Care Document ---
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 Ataxia(Discharge Diagnosis) - 12/26/19 Acute UTI(Discharge Diagnosis) - 12/26/19 Discharge Disposition: A-D/C Home Attending Physician: Quinton Romero MD Admitting Physician: Quinton Romero MD Referring Physician: Not on Staff, Referring [...] Live 7 09/13/08 Given diphtheria-tetanus toxoids (DT) 5/10/04 Given 1Admin Note: [facility] 2Admin Note: Joseph Phel[place] 3Admin Note: [facility] [place] 4Result Comment: [07/10/2015] joseph rivera 5Admin Note: Pallavi 6Admin Note: [facility]avi 7Admin Note: [id number] Exp 08/28 Medications amLODIPine 5 mg oral tablet 5 mg, 1, tablet, By Mouth, Daily, # 30 tablet, Refills 0, Tot. Refills 0, Maintenance, 12/26/19 14:29:00 EDT, Route to Pharmacy Electronically, [facility][id number], 160, cm, 11/29/19 15:13:00EDT, Height, 75, kg, 12/26/19 11:32:00 EDT, Dry Weight Start Date: 12/26/19 Status: Ordered aspirin 81 mg oral delayed release tablet 81 mg, By Mouth, Daily, # 30 tablet, Refills 0, Tot. Refills 0, Maintenance, 11/29/19 15:53:00 EDT,Route to Pharmacy Electronically, [facility] #[id number], 160, cm, 11/29/19 15:13:00 EDT, Height, 78.7, kg, 11/28/19 16:01:00 EDT, Dry Weight Start Date: 11/29/19 Status: Ordered calcium and vitamin D combination 315 mg-200 iu oral tablet 1 tablet, By Mouth, 2 times a day, # 120 tablet, 0 Refills, Maintenance, Tablet Start Date: 05/07/13 Status: Ordered cephalexin monohydrate 500 mg oral capsule 1 capsule = 500 mg, By Mouth, 2 times a day, for 5 days, # 10 capsule, 0 Refills, Acute 12/31/19 14:31:00 EDT, 12/26/19 14:31:00 EDT, Capsule, [facility] #[id number], 160, cm, 11/29/19 15:13:00 EDT, Height, 75, kg, 12/26/19 11:32:00 EDT, Dry Weight Start Date: 12/26/19 Stop Date: 12/31/19 Status: Ordered chlorthalidone 25 mg oral tablet [...] Compound Start Date: 02/25/17 Status: Ordered gabapentin 300 mg oral capsule 300 mg, 1, capsule, By Mouth, 3 times a day, # 90 capsule, Refills 0, Tot. Refills 0, Maintenance, 12/26/19 14:28:00 EDT, Route to Pharmacy Electronically, [facility] #[id number], 160, cm, 11/29/19 15:13:00 EDT, Height, 75, kg, 12/26/19 11:32:00... Start Date: 12/26/19 Status: Ordered lamotrigine 100 mg oral tablet 100 mg, 1, tablet, By Mouth, 2 times a day, # 180 tablet, Refills 1, Tot. Refills 1, Maintenance, 10/06/19 14:20:00 EDT, Route to Pharmacy Electronically, [facility], 160, cm, 08/09/19 8:24:00 EST, Height, 91, kg... Start Date: 10/06/19 Status: Ordered lamotrigine 25 mg oral tablet 25 mg, 1, tablet, By Mouth, 2 times a day, Take with 100mg tab for total daily dose of 125mg twice daily, # 180 tablet, Refills 1, Tot. Refills 1, Maintenance, 10/06/19 14:20:00 EDT, Route to Pharmacy Electronically, [facility], 160... Start Date: 10/06/19 Status: Ordered Lipitor 40 mg oral tablet 1 tablet = 40 mg, By Mouth, Daily at bedtime, # 30 tablet, 0 Refills, Maintenance, 12/26/19 14:30:00 EDT, Tablet, [facility] #[id number], 160, cm, 11/29/19 15:13:00 EDT, Height, 75, [...] and after taking it., # 90 tablet, 0 Refills, Maintenance, 12/26/19 14:30:00 EDT, Tablet, [facility] #[id number], 1 tablet By Mouth 3 times a da... Start Date: 12/26/19 Status: Ordered Problem List Condition Effective Dates [...] Effective Dates Health Status Clinical Service Informant Parkinsonian features Discharge Diagnosis 12/26/19 Non-Specified Ataxia Discharge Diagnosis 12/26/19 Non-Specified Acute UTI Discharge Diagnosis 12/26/19 Non-Specified Results Orders for Microbiology Reports Name Date Urine Culture (URINE CULTURE) 12/24/19 Microbiology Reports TEST:Urine Culture STATUS:Unauthenticated BODY SITE: SOURCE:RA COLLECTED DATE/TIME:12/24/19 9:30 PM Urine Culture SPECIMEN DESCRIPTION : RA SPECIAL REQUESTS : NONE CULTURE : >100,000 COL/ML GRAM NEGATIVE RODS REPORT STATUS : PRELIMINARY REPORT Vital Signs Most recent to oldest [Reference Range]: 1 2 3 Oxygen Saturation [94-100 %] 99 % (12/26/19 11:32 AM) 98 % (12/26/19 7:50 AM) 100 % (12/26/19 4:34 AM) Pulse Rate [55-90 bpm] 65 bpm (12/26/19 11:32 AM) 60 bpm (12/26/19 7:50 AM) 63 bpm (12/26/19 4:34 AM) Blood Pressure [90-138/55-84 mm Hg] 112/53mm Hg (12/26/19 11:32 AM) 167/71mm Hg *H* (12/26/19 9:53 AM) 158/70mm Hg *H* (12/26/19 7:50 AM) Respiratory Rate [16-30 br/min] 16 br/min (12/26/19 3:15 PM) 14 br/min *L* (12/26/19 11:32 AM) 16 br/min (12/26/19 10:51 AM) Temperature [96.8-100.4 DegF] 98.1 DegF (12/26/19 11:32 AM) 97.4 DegF (12/26/19 7:50 AM) 97.8 DegF (12/26/19 4:34 AM) Mode of Delivery (Oxygen) Room air (12/26/19 11:32 AM) Room air (12/26/19 7:50 AM) Room air (12/26/19 4:34 AM) Blood pressure sites Arm, left (12/26/19 11:32 AM) Arm, right (12/26/19 7:50 AM) Arm, right (12/26/19 4:34 AM) Temperature Route Oral (12/26/19 11:32 AM) Oral (12/26/19 7:50 AM) Oral (12/26/19 4:34 AM) Dry Weight 75 kg (12/26/19 11:32 AM) 75 kg (12/24/19 7:49 PM) 75 kg (12/24/19 6:01 PM) Dry Weight Obtained Via Patient/family s tated (12/24/19 10:49 AM) Mobility assistance Independent (12/26/19 6:00 AM) Social History Social History Type Response Smoking Status Never smoker entered on: 05/23/14 Sex Female
--- OUTSIDE RECORDS SUMMARY | 2023-12-27 06:47 | XMS_ITS | Continuity of Care Document ---
Author Organization [facility] Address [address] [place] [address]- Care Team Providers Care Transformer Inspector Name Role Phone Toñito COLE, [facility] Primary Care Physician Encounter [facility] Date(s): 10/06/21 - 11/05/21 [facility] [address] [place] [address]- Allergies, Adverse Reactions, Alerts Substance Reaction Severity [...] Joseph Phelan MA 3Admin Note: Joseph Rivera [facility] pallavi ferrell 4Result Comment: [07/10/2015] joseph rivera 5Admin Note: Pallavi 6Admin Note: [place] 7Admin Note: diluent lot [id number] Exp 08/28 [...] 08/21/21 13:28:00 EST, Route to Pharmacy Electronically, [id number], Partial fill upon patient request if the [...]
--- OUTSIDE RECORDS SUMMARY | 2023-12-27 06:47 | XMS_ITS | Continuity of Care Document ---
Author Organization [facility] Adult Address [address] [place] [address]- Care Team Providers Care Sample Dye Mixer Name Role Phone Colt LANDIN, Jud Guzman Primary Care Physicia n Encounter [facility] [place] Date(s): 08/13/21 - 08/20/[address] [address]- Encounter Diagnosis Hypertension(Discharge Diagnosis) - 08/13/21 Urge urinary incontinence(Discharge Diagnosis) - 08/13/21 Attending Physician: Not on Staff, Attending MD [...] Gi henri SARS-CoV-2 (COVID-19) mRNA BNT-162b2 vac 10/8/21 Recorded pneumococcal 23-valent vaccine 09/24/16 Given pneumococcal 23-valent vaccine 6 10/24/04 Given pneumococcal 13-valent vaccine 07/10/15 Given Zoster Vaccine Live 7 09/13/08 Given diphtheria-tetanus toxoids (DT) 10/29/03 Given 1[facility] Note: [facility] 2Admin Note: Joseph Phelan [place] 3Admin Note: Joseph Rivera [facility] pallavi ferrell 4Result Comment: [07/10/2015] zachcece [...] opioid drug. Start Date: 08/19/21 Status: Ordered CPAP Equipment Maintenance, 04/15/20 10:10:00 [...] Status Clinical Service Informant Hypertension Discharge Diagnosis 08/13/21 Urge urinary incontinence Discharge Diagnosis 08/13/21 Vital Signs Most recent to oldest [Reference Range]: 1 2 3 Height 159 cm (08/13/21 12:18 PM) 159 cm (08/13/21 11:26 AM) 159 cm (08/13/21 11:10 AM) Weight 90.7 kg (08/13/21 11:10 AM) Oxygen Saturation [94-100 %] 98 % (08/13/21 11:10 AM) Pulse Rate [55-90 bpm] 71 bpm (08/13/21 11:10 AM) Body Mass Index [18.5-24.99] 35.88 *>HHI* (08/13/21 11:10 AM) Blood Pressure [90-138/55-84 mm Hg] 138/68mm Hg (08/13/21 12:18 PM) 146/67mm Hg *H* (08/13/21 11:26 AM) 155/65mm Hg *H* (08/13/21 11:10 AM) Temperature [96.8-100.4 DegF] 96.6 DegF *L* (08/13/21 11:10 AM) Mode of Delivery (Oxygen) Room air (08/13/21 11:10 AM) Blood pressure sites Arm, right (08/13/21 11:10 AM) Temperature Route Temporal (08/13/21 11:10 AM) Weight Obtained Via Standing scale (08/13/21 11:10 AM) Social History Social History Type Response Smoking Status Never smoker entered on: 05/23/14 Sex Female
--- OUTSIDE RECORDS SUMMARY | 2023-12-27 06:47 | XMS_ITS | Continuity of Care Document ---
Author Organization [facility] Adult Address [address] [place] [address]- Care Team Providers Care Structural Engineer Name Role Phone Toñito COLE, [facility] Primary Care Physician Encounter [facility] Date(s): 05/13/22 - 06/12/22 [facility] Adult [address] [place] [address]- Allergies, Adverse Reactions, Alerts Substance Reaction Severity [...] virus vaccine, inactivated 5 04/26/09 Gi henri [id number] 12y+ bivalent booster vax 03/12/22 Recorded SARS-CoV-2 mRNA (kbdmfkz-pvzh-iygpv) vax 10/17/21 Recorded SARS-CoV-2 (COVID-19) mRNA BNT-162b2 vac 03/28/21 Recorded pneumococcal 23-valent vaccine 09/24/16 Given pneumococcal 23-valent vaccine 6 10/24/04 Given pneumococcal 13-valent vaccine 07/10/15 Given Zoster Vaccine Live 7 09/13/08 Given diphtheria-tetanus toxoids (DT) 10/29/03 Given 1[facility] Note: [facility] 2Admin Note: Joseph Phelan [place] 3Admin Note: Joseph [facility] pallavi vt 4Result Comment: [07/10/2015] joseph rivera 5Admin Note: [...] 05/27/22 10:02:00 EST, Route to Pharmacy Electronically, [id number], Partial fill upon patient requ... Start Date: [...] 06/25/22 10:09:00 EST, 05/27/22 10:09:00 EST, [id number], Partial fill upon patient request if the [...] Care Team Personnel Name: Saadia Abdalla Position: [facility] Onco RN Member Role: Primary Care Nurse Name: Janna Sibley MD Position: [facility] Primary Care Physician Member Role: PCP Address: Address: [address] [place] [address] [address] [place], [place] [address] Name: Nasrin Graf RN Position: [facility] DOROTHEA Nurse Member Role: Primary Care Nurse Name: Aislinn Mccauley RN Position: [facility] RN Member Role: Primary Care Nurse Care Team Related Persons Name: AMIRA MURPHY Address: home [address] [place], [place] Address: temporary 0 Name: AMIRA MURPHY Address: home [address] [place], [place] Name: AMIRA MURPHY Address: home [address] [facility] [id number] Name: TITO MURPHY Address: home [address] [place] [address] Name: TITO MURPHY Address: home [address] [place], [place] Name: TITO MURPHY Address: home [address] [place] [id number]
--- OUTSIDE RECORDS SUMMARY | 2023-12-27 06:47 | XMS_ITS | Continuity of Care Document ---
Author Organization [facility] Address [address] [place] [address]- Care Team Providers Care Respiratory Services Manager Name Role Phone Toñito COLE, Janna Primary Care Physician Encounter [facility] Date(s): 05/21/22 - 05/28/22 [facility] [address] [place] [address]- Attending Physician: Latonya Sarabia DO Referring Physician: Janna Sibley MD Allergies, Adverse [...] influenza virus vaccine, inactivated 2 04/01/17 Gi herni influenza virus vaccine, inactivated 3 05/15/16 Gi [...] virus vaccine, inactivated 5 04/26/09 Gi henri [id number] 12y+ bivalent booster vax 03/12/22 Recorded SARS-CoV-2 mRNA (ypldsdb-yhdv-nefyy) vax 10/17/21 Recorded SARS-CoV-2 (COVID-19) mRNA BNT-162b2 vac 03/28/21 Recorded pneumococcal 23-valent vaccine 09/24/16 Given pneumococcal 23-valent vaccine 6 10/24/04 Given pneumococcal 13-valent vaccine 07/10/15 Given Zoster Vaccine Live 7 09/13/08 Given diphtheria-tetanus toxoids (DT) 10/29/03 Given 1Admin Note: [facility] 2Admin Note: [facility] [place] 3Admin Note: [facility] pallavi id 4Result Comment: [07/10/2015] [facility] [...] 05/27/22 10:02:00 EST, [id number], Partial fill upon patient requ... Start Date: [...] 06/25/22 10:09:00 EST, 05/27/22 10:09:00 EST, Tablet, [facility] #[id number], Partial fill upon patient request if the [...] Confirmed Active Urge urinary incontinence Confirmed Active Vital Signs Most recent to oldest [Reference Range]: 1 Height 159 cm (05/21/22 1:37 PM) Oxygen Saturation [94-100 %] 99 % (05/21/22 1:37 PM) Pulse Rate [55-90 bpm] 64 bpm (05/21/22 1:37 PM) Blood Pressure [90-138/55-84 mm Hg] 127/ 80mm Hg (05/21/22 1:37 PM) Respiratory Rate [16-30 br/min] 16 br/mi n (05/21/22 1:37 PM) Temperature [96.8-100.4 DegF] 97.9 DegF (05/21/22 1:37 PM) Mode of Delivery (Oxygen) Room air (05/21/22 1:37 PM) Blood pressure sites Arm, left (05/21/22 1:37 PM) Temperature Route Temporal (05/21/22 1:37 PM) Social History Social History Type Response Smoking Status Never smoker entered on: 05/23/14 Sex Female Note * Michelle Muir MA: PERFORM, SIGN, VERIFY Event Display: Patient Education/Instruction Authored Date: [id number] [facility] *[facility] Clinical Summary Name MILLER MURPHY Age 86 Years 1935 PCP Toñito COLE, Janna PCP Visit Date 05/21/2022 11:17:00 Additional Instructions: Scheduled Appointments?? Future Appointments ?No Future Appointments Scheduled Follow-Up Instructions ?? Diagnosis Medications: Please continue your medications until treatment is completed or stopped by your provider. Discuss any questions related to medications with your provider. Medications to Continue with No Changes These [...] Dose: Chlorthalidone (chlorthalidone 25 mg oral tablet) half tablet Oral Daily. Refills: 1. Next Dose: Clobetasol Topical (clobetasol 0.05% topical [...] capsule Oral 3 times a day for 2 Days. Refills: 0. Next Dose: Gabapentin (gabapentin 300 mg oral capsule) 1 capsule Oral 3 times a day for 90 Days. Refills: 2. Next Dose: Lamotrigine (lamotrigine 100 mg oral tablet) 1 tab(s) Oral twice a day for 90 Days. Refills: 2. Next Dose: Lamotrigine (lamotrigine 25 mg oral tablet) 2 tab(s) Oral twice a day for 90 Days. dose increase. Refills: 2. Next Dose: Miscellaneous Rx (PAXLOVID) Nirmatrelvir 300 mg (2 pills of 150 mg) with ritonavir 100 mg ( 1 pill). 3 pills twice a day for 5 days for COVID 19 infection.. Refills: 0. Next Dose: Multivitamin With Minerals (PreserVision AREDS [...] orders Vital Signs Height 159 cm Weight BMI Blood Pressure 127 mm Hg/80 mm Hg Temperature 97.9 DegF Pulse Rate 64 bpm Respiratory Rate 16 br/min 02 Sat Mode of Delivery 99 %/Room air You can now view a summary of your hospital visit from the comfort of your home through a free online portal called JustShareIt. JustShareIt is a website that allows you to securely view your medical information including discharge summary, medications and follow-up visits. ??You can alsosend a secure electronic message to your doctor???s office to request appointments, renew medications or just ask a question. You can enroll at [email or web address] or register during your next office [...] primary care provider, you may find a [facility] provider by calling [facility] Bilna Link at [phone]. For information about the plan of care [...] Care Team Personnel Name: Saadia Abdalla Position: [facility] Onco RN Member Role: Primary Care Nurse Name: Janna Sibley MD Position: [facility] Primary Care Physician Member Role: PCP Address: Address: [address] [place] [address]- [place] Name: Homar HUA, Nasrin Position: [facility] DOROTHEA Nurse Member Role: Primary Care Nurse Name: Aislinn Mccauley RN Position: [facility] RN Member Role: Primary Care Nurse Care Team Related Persons Name: AMIRA MURPHY Address: [address] [place] Address: temporary 0 Name: AMIRA MURPHY Address: [address] [id number] Name: AMIRA MURPHY Address: [address] Name: TITO MURPHY Address: home [address] [place] [address] [place] Name: TITO MURPHY Address: [address] Name: TITO MURPHY Address: [address] [address]
--- OUTSIDE RECORDS SUMMARY | 2023-12-27 06:47 | XMS_ITS | Continuity of Care Document ---
Author Organization [facility] Adult Address [address] [place] [address]- Care Team Providers Care It Help Desk Analyst Name Role Phone Toñito COLE, [facility] Primary Care Physician ( [phone] Encounter [facility] Date(s): 08/24/22 - 09/23/22 [facility] Adult [address] [place] [address]- Attending Physician: Freddie Mcgrath Admitting Physician: Freddie [...] virus vaccine, inactivated 5 04/26/09 Gi henri [id number] 12y+ bivalent booster vax 03/12/22 Recorded SARS-CoV-2 mRNA (akivsdc-amwb-hkzks) vax 10/17/21 Recorded SARS-CoV-2 (COVID-19) mRNA BNT-162b2 vac 03/28/21 Recorded pneumococcal 23-valent vaccine 09/24/16 Given pneumococcal 23-valent vaccine 6 10/24/04 Given pneumococcal 13-valent vaccine 07/10/15 Given Zoster Vaccine Live 7 09/13/08 Given diphtheria-tetanus toxoids (DT) 10/29/03 Given 1[facility] Note: [facility] 2Admin Note: Zache NICOLE [facility] 3Admin Note: Zache Nicole [facility] pallavi ri 4Result Comment: [07/10/2015] zache nicole 5Admin Note: [...] 08/24/22 11:35:00 EST, Route to Pharmacy Electronically, [id number] #[id number], Partial fill upon patient request if the [...] Response Smoking Status Never smoker entered on: 12/3/14 Sex Female EKG study * Event Display: EKG Authored Date: Note * Event Display: Laboratory Result Scanned Authored Date: * Event Display: Non BH Cardiovascular Results Authored Date: * Event Display: Non BH Cardiovascular Results Authored Date: Patient Care team information Care Team Personnel Name: Saadia Abdalla Position: [facility] Onco RN Member Role: Primary Care Nurse Name: Janna Sibley MD Position: [facility] Primary Care Physician Member Role: PCP Address: Address: [address] [place] [address] Name: Nasrin Graf RN Position: [facility] AMB Nurse Member Role: Primary Care Nurse Name: Aislinn Mccauley RN Position: [facility] RN Member Role: Primary Care Nurse Care Team Related Persons Name: AMIRA MURPHY Address: [address] Name: AMIRA MURPHY Address: [place] [address] [place] [address] Name: AMIRA MURPHY Address: [address] [address] [place] Address: [facility] 0 Name: TITO MURPHY Address: home [address] [place] [address] [place] Name: TITO MURPHY Address: [address] [place] [address] Name: TITO MURPHY Address: [address] [address]
--- OUTSIDE RECORDS SUMMARY | 2023-12-27 06:47 | XMS_ITS | Continuity of Care Document ---
Author Organization [facility] ter Address [address] [place] [address]- Care Team Providers Care Caramel Candy Maker Name Role Phone Toñito COLE, [facility] Primary Care Physician [place] [facility] [place] 06/15/23 - 06/15/[address] [address]- Discharge Disposition: A-D/C Walkout Attending Physician: Not on Staff, Attending MD Admitting Physician: Not on Staff, Admitting MD Referring Physician: Not on Staff, Referring [...] virus vaccine, inactivated 5 04/26/09 Gi henri [id number] 12y+ bivalent booster vax 03/12/22 Recorded SARS-CoV-2 mRNA (iizrzeq-ancw-fyxwd) vax 10/17/21 Recorded SARS-CoV-2 (COVID-19) mRNA BNT-162b2 [...] Maintenance,11/17/22 8:37:00 EDT, Route to Pharmacy Electronically, [facility] #[id number], Partial fill upon patient request if the [...] Required Details, Route to Pharmacy Electronically, [facility], 159, cm, 03/11/23 9:45:00 EDT, Height, 81, kg, 0... Start Date: 05/17/23 Status: Ordered Nitrostat 0.3 mg sublingual tablet 1 tablet = 0.3 mg, Sublingual, Every 5 minutes, PRN as needed for chest pain, not to exceed 3 doses/15 min--if pain persists, seek medical attention, # 100 tablet, 0 Refills, Maintenance, 06/15/23 15:32:00 EST, Tablet, [facility], P... Start Date: 06/15/23 Status: Ordered omeprazole 20 mg oral delayed [...] oldest [Reference Range]: 1 Height 160 cm (06/15/23 11:38 AM) Oxygen Saturation [94-100 %] 98 % (06/15/23 11:38 AM) Pulse Rate [55-90 bpm] 89 bpm (06/15/23 11:38 AM) Blood Pressure [90-138/55-84 mm Hg] 144/ 76mm Hg *H* (06/15/23 11:38 AM) Respiratory Rate [16-30 br/min] 18 br/mi n (06/15/23 11:38 AM) Temperature [96.8-100.4 DegF] 98.9 DegF (06/15/23 11:38 AM) Mode of Delivery (Oxygen) Room air (06/15/23 11:38 AM) Blood pressure sites Arm, right (06/15/23 11:38 AM) Temperature Route Oral (06/15/23 11:38 AM) Dry Weight 75.9 kg (06/15/23 11:38 AM) Social History Social History Type Response Smoking Status Never smoker entered on: 05/23/14 Sex Female EKG study * Event Display: EKG Authored Date: * Event Display: EKG Authored Date: Patient Care team information Care Team Personnel Name: Rm Saadia Position: [facility] Onco RN Member Role: Primary Care Nurse Name: Janna Sibley MD Position: [facility] Physician - Primary Care Member Role: PCP Address: Address: [address] [place] [address] [address] [place] [address]- Name: Aislinn Mccauley RN Position: [facility] RN Member Role: Primary Care Nurse Care Team Related Persons Name: AMIRA MURPHY Address: home [address] [place] [address] [place] Address: temporary 0 Name: AMIRA MURPHY Address: [place] [address] [place] [address] Name: AMIRA MURPHY Address: [address] [facility] [id number] Name: TITO MURPHY Address: [address] [place] [address] [place] Name: TITO MURPHY Address: [place] [address] [place] [address] Name: TITO MURPHY Address: [address] [place] [address]
--- OUTSIDE RECORDS SUMMARY | 2023-12-27 06:47 | XMS_ITS | Continuity of Care Document ---
Author Organization [facility] Address [address] [place] [address]- Care Team Providers Care Jtac Name Role Phone Toñito COLE, [facility] Primary Care Physician ( [phone] [place] [facility] 07/20[place]23 - 08/19/23 [facility] [address] [place] [address]- Allergies, Adverse Reactions, Alerts Substance Reaction Severity [...] virus vaccine, inactivated 5 04/26/09 Gi henri [id number] 12y+ bivalent booster vax 03/12/22 Recorded SARS-CoV-2 mRNA (yiraotm-iyib-pjfpo) vax 10/17/21 Recorded SARS-CoV-2 (COVID-19) mRNA BNT-162b2 vac 03/28/21 Recorded SARS-CoV-2 (COVID-19) mRNA BNT-162b2 vac 08/15/20 Given pneumococcal 23-valent vaccine 09/24/16 Given pneumococcal 23-valent vaccine 6 10/24/04 Given pneumococcal 13-valent vaccine 07/10/15 Given Zoster Vaccine Live 7 09/13/08 Given diphtheria-tetanus toxoids (DT) 10/29/03 Given 1Admin Note[facility] 2Admin Note: Joseph NICOLE Phelan [place] 3Admin Note: Joseph León [facility] pallavi sd 4Result Comment: [07/10/2015] joseph nicole 5Admin Note: [...] Refills, Maintenance, 01/15/22 16:23:00 EDT, Tablet, [facility], Partial fill upon patient request [...] Maintenance,11/17/22 8:37:00 EDT, Route to Pharmacy Electronically, [facility] #[id number], Partial fill upon patient request if the [...] 0 Refills, Maintenance, 06/16/23 10:10:00 EST, Tablet, [facility] #[id number], Part... Start Date: 06/16/23 Status: Ordered omeprazole [...] Primary Care Member Role: PCP Address: Address: [address] [place] [address] [address] [place], [place] [address] Name: Aislinn Mccauley RN Position: [facility] RN Member Role: Primary Care Nurse Care Team Related Persons Name: AMIRA MURPHY Address: home [address] [place] [address] Name: AMIRA MURPHY Address: [address] [facility] [address] Name: AMIRA MURPHY Address: home [address] [place], [place] Address: temporary 0 Name: TITO MURPHY Address: [address] [place] [address] [place] Name: TITO MURPHY Address: home [address] [place] [address] Name: TITO MURPHY Address: [address] [place] [address]
--- OUTSIDE RECORDS SUMMARY | 2023-12-27 06:47 | XMS_ITS | Continuity of Care Document ---
Author Organization [facility] ter Address [address] [place] [address]- Care Team Providers Care Thread Checker Name Role Phone Janna Sibley MD Primary Care Physician ( [phone] Encounter [facility] Date(s): 05/21/22 - 05/21/[address] [address]- Encounter Diagnosis Fall at home(Final) - 05/21/22 Hematoma of hip(Final) - 05/21/22 Traumatic hematoma of lower back(Final) - 05/21/22 Discharge Disposition: A-D/C Home Attending Physician: Zuri Taylor MD Admitting Physician: Zuri Taylor MD Referring Physician: Not on Staff, Referring [...] virus vaccine, inactivated 5 04/26/09 Gi henri [id number] 12y+ bivalent booster vax 03/12/22 Recorded SARS-CoV-2 mRNA ([id number]) vax 10/17/21 Recorded SARS-CoV-2 (COVID-19) mRNA BNT-162b2 vac 03/28/21 Recorded pneumococcal 23-valent vaccine 09/24/16 Given pneumococcal 23-valent vaccine 6 10/24/04 Given pneumococcal 13-valent vaccine 07/10/15 Given Zoster Vaccine Live 7 09/13/08 Given diphtheria-tetanus toxoids (DT) 10/29/03 Given 1Admin Note: [facility] dose 2Admin Note: Joseph Phelan MA 3Admin Note: Joseph Rivera [facility] pallavi ferrell 4Result Comment: [07/10/2015] joseph [...] By Mouth, 3 times a day, # 6 capsule, Refills 0, Tot. Refills 0, Maintenance, 05/13/22 16:13:00 EST, Route to Pharmacy Electronically, [facility]/pharmacy #[id number], Partial fill upon patient request if the prescription is for a schedule II o... Start Date: 05/13/22 Stop Date: 05/15/22 Status: Ordered gabapentin 300 mg oral capsule [...] infection., 10/04/21 14:30:00 EDT, Supply, 159, cm, 03/... Start Date: 10/04/21 Status: Ordered PreserVision AREDS [...] Exam Date Time Procedure Performing Provider Status 05/21/22 8:[address] Abd/Pelvis W/ IV Contrast Only Stup ak , Omi; Auth (Verified) Notes: (CT Abd/Pelvis W/ IV Contrast Only) Reason For Exam: Abd trauma, blunt;Other: RESULT: CT Abd/Pelvis W/ IV Contrast Only CT Chest W/ Contrast, CT Thoracic Spine W/ Contrast, CT Lumbar Spine W/ Contrast, CT Abd/Pelvis W/ IV Contrast Only INDICATION: Hx of Present Illness: mechanical fall Wednesday from standing, c o left lower back flankpain and left LQ left hip pain, pain incr w weight bearing, no head strike, no hematuria; Reason: Other:; Chest trauma, blunt; Clinical Question(s): Other:; Aortic hilar injury TECHNIQUE: Helical CT scan of the chest, abdomen, and pelvis with IV contrast, formatted in 3 planes. The original dataset was reconstructed with a small field of view around the thoracic and lumbar spine utilizing soft tissue and bone algorithm reconstructions in 3 planes. 100 cc of Omnipaque 300 was administered intravenously. This study was performed without oral contrast. Weight-based protocol was performed using automatic exposure control. CTDIvol Body: 8.80 mGy, DLP Body: 624 mGy*cm. COMPARISON: None. FINDINGS: Supervisor Fertilizer view findings, lines and tubes: None. Trachea and airways: Patent without evidence of tracheal or endobronchial lesion. Lungs and pleura: Mild dependent bibasilar atelectasis. No effusion or pneumothorax. Mediastinum and melina: No mass or hematoma. No mediastinal or hilar lymphadenopathy. Type 2 paraesophageal hernia. Normal thyroid. Heart: Heart is normal in size. No pericardial effusion. Moderate coronary artery calcification. Aorta: Mild vascular calcification but no aneurysm. Pulmonary arteries: Normal caliber. No evidence of pulmonary embolism on this study performed without angiographic technique. Chest wall soft tissues: No acute abnormality. Diaphragm: Intact. Liver: Normal in attenuation and morphology. No suspicious lesion. Surgical clips adjacent to the medial aspect of segment 6. Gallbladder: Absent consistent with prior cholecystectomy. Bile ducts: No biliary ductal dilation. Spleen: Normal in size. Pancreas: No suspicious lesion or ductal dilatation. Adrenal glands: No nodule. Kidneys and ureters: Nonobstructing renal calculi to be upper pole of the left kidney. No hydronephrosis or suspicious lesion. Bladder: No wall thickening or surrounding stranding. Reproductive organs: Unremarkable. Stomach, small bowel, and large bowel: Normal caliber stomach and bowel loops. No surrounding inflammatory changes. Appendix: No evidence of acute appendicitis. Peritoneum and retroperitoneum: No ascites or pneumoperitoneum. No omental or mesenteric lesions. Lymph nodes: No enlarged lymph nodes. Blood vessels: Mild vascular calcifications but no aneurysm. No evidence of venous thrombosis. Abdominal and pelvic wall soft tissues: Fat stranding of the subcutaneous soft tissues overlying the left kidney. There is also focal abnormality seen in the anterior right thigh measuring 5 x 6 x 3 cm. Probable hematoma. Bones: Prior kyphoplasty of the L1 vertebral body. Mild multilevel degenerative changes and minimalanterolisthesis of L3 on L4. IMPRESSION: Likely soft tissue contusion seen in the inferior lateral left chest. No rib fractures or other fractures identified. Likely soft tissue injury/hematoma seen in the anterior lateral right thigh Nonobstructing moderate to large left kidney calculus. I have personally reviewed the images and I agree with this report. WSN: [id number] Ordering Physician: Tito Fleming Dictated By: Bright Hernandez MD Dictated Date/Time: 05/21/22 9:10 pm Reviewed By: Pasha Garcia MD Signed By: Pasha Garcia MD Signed Date/Time: 05/21/22 9:15 pm Transcribed By: STEPHANIE Transcribed Date/Time: 05/21/22 9:06 pm * Exam Date Time Procedure Performing Provider Status 05/21/22 8:[address] Lumbar Spine W/ Contrast Stupak , O leg; Auth (Verified) Notes: (CT Lumbar Spine W/ Contrast) Reason For Exam: Spine fracture, lumbar, traumatic;Other: RESULT: CT Lumbar Spine W/ Contrast CT Chest W/ Contrast, CT Thoracic Spine W/ Contrast, CT Lumbar Spine W/ Contrast, CT Abd/Pelvis W/ IV Contrast Only INDICATION: Hx of Present Illness: mechanical fall Wednesday from standing, c o left lower back flankpain and left LQ left hip pain, pain incr w weight bearing, no head strike, no hematuria; Reason: Other:; Chest trauma, blunt; Clinical Question(s): Other:; Aortic hilar injury TECHNIQUE: Helical CT scan of the chest, abdomen, and pelvis with IV contrast, formatted in 3 planes. The original dataset was reconstructed with a small field of view around the thoracic and lumbar spine utilizing soft tissue and bone algorithm reconstructions in 3 planes. 100 cc of Omnipaque 300 was administered intravenously. This study was performed without oral contrast. Weight-based protocol was performed using automatic exposure control. CTDIvol Body: 8.80 mGy, DLP Body: 624 mGy*cm. COMPARISON: None. FINDINGS: Supervisor Fertilizer view findings, lines and tubes: None. Trachea and airways: Patent without evidence of tracheal or endobronchial lesion. Lungs and pleura: Mild dependent bibasilar atelectasis. No effusion or pneumothorax. Mediastinum and melina: No mass or hematoma. No mediastinal or hilar lymphadenopathy. Type 2 paraesophageal hernia. Normal thyroid. Heart: Heart is normal in size. No pericardial effusion. Moderate coronary artery calcification. Aorta: Mild vascular calcification but no aneurysm. Pulmonary arteries: Normal caliber. No evidence of pulmonary embolism on this study performed without angiographic technique. Chest wall soft tissues: No acute abnormality. Diaphragm: Intact. Liver: Normal in attenuation and morphology. No suspicious lesion. Surgical clips adjacent to the medial aspect of segment 6. Gallbladder: Absent consistent with prior cholecystectomy. Bile ducts: No biliary ductal dilation. Spleen: Normal in size. Pancreas: No suspicious lesion or ductal dilatation. Adrenal glands: No nodule. Kidneys and ureters: Nonobstructing renal calculi to be upper pole of the left kidney. No hydronephrosis or suspicious lesion. Bladder: No wall thickening or surrounding stranding. Reproductive organs: Unremarkable. Stomach, small bowel, and large bowel: Normal caliber stomach and bowel loops. No surrounding inflammatory changes. Appendix: No evidence of acute appendicitis. Peritoneum and retroperitoneum: No ascites or pneumoperitoneum. No omental or mesenteric lesions. Lymph nodes: No enlarged lymph nodes. Blood vessels: Mild vascular calcifications but no aneurysm. No evidence of venous thrombosis. Abdominal and pelvic wall soft tissues: Fat stranding of the subcutaneous soft tissues overlying the left kidney. There is also focal abnormality seen in the anterior right thigh measuring 5 x 6 x 3 cm. Probable hematoma. Bones: Prior kyphoplasty of the L1 vertebral body. Mild multilevel degenerative changes and minimalanterolisthesis of L3 on L4. IMPRESSION: Likely soft tissue contusion seen in the inferior lateral left chest. No rib fractures or other fractures identified. Likely soft tissue injury/hematoma seen in the anterior lateral right thigh Nonobstructing moderate to large left kidney calculus. I have personally reviewed the images and I agree with this report. WSN: [id number] Ordering Physician: Tito Fleming Dictated By: Bright Hernandez MD Dictated Date/Time: 05/21/22 9:10 pm Reviewed By: Pasha Garcia MD Signed By: Pasha Garcia MD Signed Date/Time: 05/21/22 9:15 pm Transcribed By: STEPHANIE Transcribed Date/Time: 05/21/22 9:06 pm * Exam Date Time Procedure Performing Provider Status 05/21/22 8:[address] Thoracic Spine W/ Contrast Stupak , Omi; Auth (Verified) Notes: (CT Thoracic Spine W/ Contrast) Reason For Exam: Spine fracture, thoracic, traumatic;Other: RESULT: CT Thoracic Spine W/ Contrast CT Chest W/ Contrast, CT Thoracic Spine W/ Contrast, CT Lumbar Spine W/ Contrast, CT Abd/Pelvis W/ IV Contrast Only INDICATION: Hx of Present Illness: mechanical fall Wednesday from standing, c o left lower back flankpain and left LQ left hip pain, pain incr w weight bearing, no head strike, no hematuria; Reason: Other:; Chest trauma, blunt; Clinical Question(s): Other:; Aortic hilar injury TECHNIQUE: Helical CT scan of the chest, abdomen, and pelvis with IV contrast, formatted in 3 planes. The original dataset was reconstructed with a small field of view around the thoracic and lumbar spine utilizing soft tissue and bone algorithm reconstructions in 3 planes. 100 cc of Omnipaque 300 was administered intravenously. This study was performed without oral contrast. Weight-based protocol was performed using automatic exposure control. CTDIvol Body: 8.80 mGy, DLP Body: 624 mGy*cm. COMPARISON: None. FINDINGS: Supervisor Fertilizer view findings, lines and tubes: None. Trachea and airways: Patent without evidence of tracheal or endobronchial lesion. Lungs and pleura: Mild dependent bibasilar atelectasis. No effusion or pneumothorax. Mediastinum and melina: No mass or hematoma. No mediastinal or hilar lymphadenopathy. Type 2 paraesophageal hernia. Normal thyroid. Heart: Heart is normal in size. No pericardial effusion. Moderate coronary artery calcification. Aorta: Mild vascular calcification but no aneurysm. Pulmonary arteries: Normal caliber. No evidence of pulmonary embolism on this study performed without angiographic technique. Chest wall soft tissues: No acute abnormality. Diaphragm: Intact. Liver: Normal in attenuation and morphology. No suspicious lesion. Surgical clips adjacent to the medial aspect of segment 6. Gallbladder: Absent consistent with prior cholecystectomy. Bile ducts: No biliary ductal dilation. Spleen: Normal in size. Pancreas: No suspicious lesion or ductal dilatation. Adrenal glands: No nodule. Kidneys and ureters: Nonobstructing renal calculi to be upper pole of the left kidney. No hydronephrosis or suspicious lesion. Bladder: No wall thickening or surrounding stranding. Reproductive organs: Unremarkable. Stomach, small bowel, and large bowel: Normal caliber stomach and bowel loops. No surrounding inflammatory changes. Appendix: No evidence of acute appendicitis. Peritoneum and retroperitoneum: No ascites or pneumoperitoneum. No omental or mesenteric lesions. Lymph nodes: No enlarged lymph nodes. Blood vessels: Mild vascular calcifications but no aneurysm. No evidence of venous thrombosis. Abdominal and pelvic wall soft tissues: Fat stranding of the subcutaneous soft tissues overlying the left kidney. There is also focal abnormality seen in the anterior right thigh measuring 5 x 6 x 3 cm. Probable hematoma. Bones: Prior kyphoplasty of the L1 vertebral body. Mild multilevel degenerative changes and minimalanterolisthesis of L3 on L4. IMPRESSION: Likely soft tissue contusion seen in the inferior lateral left chest. No rib fractures or other fractures identified. Likely soft tissue injury/hematoma seen in the anterior lateral right thigh Nonobstructing moderate to large left kidney calculus. I have personally reviewed the images and I agree with this report. WSN: [id number] Ordering Physician: Tito Fleming Dictated By: Bright Hernandez MD Dictated Date/Time: 05/21/22 9:10 pm Reviewed By: Pasha Garcia MD Signed By: Pasha Garcia MD Signed Date/Time: 05/21/22 9:15 pm Transcribed By: STEPHANIE Transcribed Date/Time: 05/21/22 9:06 pm * Exam Date Time Procedure Performing Provider Status 05/21/22 8:[address] Chest W/ Contrast Stupak , Omi; Au th (Verified) Notes: (CT Chest W/ Contrast) Reason For Exam: Chest trauma, blunt;Other: RESULT: CT Chest W/ Contrast CT Chest W/ Contrast, CT Thoracic Spine W/ Contrast, CT Lumbar Spine W/ Contrast, CT Abd/Pelvis W/ IV Contrast Only INDICATION: Hx of Present Illness: mechanical fall Wednesday from standing, c o left lower back flankpain and left LQ left hip pain, pain incr w weight bearing, no head strike, no hematuria; Reason: Other:; Chest trauma, blunt; Clinical Question(s): Other:; Aortic hilar injury TECHNIQUE: Helical CT scan of the chest, abdomen, and pelvis with IV contrast, formatted in 3 planes. The original dataset was reconstructed with a small field of view around the thoracic and lumbar spine utilizing soft tissue and bone algorithm reconstructions in 3 planes. 100 cc of Omnipaque 300 was administered intravenously. This study was performed without oral contrast. Weight-based protocol was performed using automatic exposure control. CTDIvol Body: 8.80 mGy, DLP Body: 624 mGy*cm. COMPARISON: None. FINDINGS: Supervisor Fertilizer view findings, lines and tubes: None. Trachea and airways: Patent without evidence of tracheal or endobronchial lesion. Lungs and pleura: Mild dependent bibasilar atelectasis. No effusion or pneumothorax. Mediastinum and melina: No mass or hematoma. No mediastinal or hilar lymphadenopathy. Type 2 paraesophageal hernia. Normal thyroid. Heart: Heart is normal in size. No pericardial effusion. Moderate coronary artery calcification. Aorta: Mild vascular calcification but no aneurysm. Pulmonary arteries: Normal caliber. No evidence of pulmonary embolism on this study performed without angiographic technique. Chest wall soft tissues: No acute abnormality. Diaphragm: Intact. Liver: Normal in attenuation and morphology. No suspicious lesion. Surgical clips adjacent to the medial aspect of segment 6. Gallbladder: Absent consistent with prior cholecystectomy. Bile ducts: No biliary ductal dilation. Spleen: Normal in size. Pancreas: No suspicious lesion or ductal dilatation. Adrenal glands: No nodule. Kidneys and ureters: Nonobstructing renal calculi to be upper pole of the left kidney. No hydronephrosis or suspicious lesion. Bladder: No wall thickening or surrounding stranding. Reproductive organs: Unremarkable. Stomach, small bowel, and large bowel: Normal caliber stomach and bowel loops. No surrounding inflammatory changes. Appendix: No evidence of acute appendicitis. Peritoneum and retroperitoneum: No ascites or pneumoperitoneum. No omental or mesenteric lesions. Lymph nodes: No enlarged lymph nodes. Blood vessels: Mild vascular calcifications but no aneurysm. No evidence of venous thrombosis. Abdominal and pelvic wall soft tissues: Fat stranding of the subcutaneous soft tissues overlying the left kidney. There is also focal abnormality seen in the anterior right thigh measuring 5 x 6 x 3 cm. Probable hematoma. Bones: Prior kyphoplasty of the L1 vertebral body. Mild multilevel degenerative changes and minimalanterolisthesis of L3 on L4. IMPRESSION: Likely soft tissue contusion seen in the inferior lateral left chest. No rib fractures or other fractures identified. Likely soft tissue injury/hematoma seen in the anterior lateral right thigh Nonobstructing moderate to large left kidney calculus. I have personally reviewed the images and I agree with this report. WSN: [id number] Ordering Physician: Tito Fleming Dictated By: Bright Hernandez MD Dictated Date/Time: 05/21/22 9:10 pm Reviewed By: Pasha Garcia MD Signed By: Pasha Garcia MD Signed Date/Time: 05/21/22 9:15 pm Transcribed By: STEPHANIE Transcribed Date/Time: 05/21/22 9:06 pm Vital Signs Most recent to oldest [Reference Range]: 1 2 3 Weight 78 kg (05/21/22 4:04 PM) Oxygen Saturation [94-100 %] 99 % (05/21/22 9:05 PM) 98 % (05/21/22 5:46 PM) 99 % (05/21/22 5:18 PM) Pulse Rate [55-90 bpm] 59 bpm (05/21/22 9:05 PM) 66 bpm (05/21/22 5:46 PM) 72 bpm (05/21/22 5:18 PM) Blood Pressure [90-138/55-84 mm Hg] 147/72mm Hg *H* (05/21/22 9:05 PM) 176/58mm Hg *H* (05/21/22 5:46 PM) 172/56mm Hg *H* (05/21/22 5:18 PM) Respiratory Rate [16-30 br/min] 16 br/min (05/21/22 9:05 PM) 20 br/min (05/21/22 7:30 PM) 14 br/min *L* (05/21/22 5:46 PM) Temperature [96.8-100.4 DegF] 97.7 DegF (05/21/22 9:05 PM) 98 DegF (05/21/22 5:46 PM) 98.1 DegF (05/21/22 5:18 PM) Mode of Delivery (Oxygen) Room air (05/21/22 9:05 PM) Room air (05/21/22 7:30 PM) Room air (05/21/22 5:46 PM) Blood pressure sites Arm, left (05/21/22 9:05 PM) Arm, right (05/21/22 5:46 PM) Arm, right (05/21/22 5:18 PM) Temperature Route Oral (05/21/22 9:05 PM) Oral (05/21/22 5:46 PM) Oral (05/21/22 5:18 PM) Social History Social History Type Response Smoking Status Never smoker entered on: 05/23/14 Sex Female Note * Tito lFeming DO: PERFORM Event Display: Patient Education Leaflets Authored Date: [id number] After a Fall ?? [id number] After a Fall You have had a fall today. That means that you slipped, tripped, or lost your balance. If your fallhad been because of fainting or a seizure,??you might need other??tests. It is normal to feel sore and tight in your muscles and back the next day, and not just the musclesyou injured. Remember, all the parts of your body are connected, so while one area hurts now, the next day another may hurt. Also, when you injure yourself, it causes inflammation. This then causes the muscles to tighten up and hurt more. After the initial worsening, it should slowly improve over the next few days. Tell your healthcare provider if you have more severe pain. Even without a definite head injury, you can still get a concussion from your head suddenly jerkingforward, backward, or sideways when you fall. Concussions and even bleeding can still happen, especially if you have had a recent injury or take blood thinner medicine. It is not unusual to have a mild headache and feel tired and even nauseous or dizzy.?? Home care ??? Rest today and go back to your normal activities when you are feeling back to normal.??? If you were injured during the fall, follow the advice from your healthcare provider about how to care for your injury. ??? At first, don't try to stretch out the sore spots. If there is a strain, stretching may make it worse. Massage may help relax the muscles without stretching them. ??? Use an ice pack or cold compress on and off at the sore spots 10 to 20 minutes at a time, as often as you feel comfortable. This may help reduce the inflammation, swelling, and pain. ??? Know that if you have any scrapes (abrasions), they often heal within??10 days. Keep the scrapes clean while they start to heal. But an infection may happen even with correct care. So watch for early signs of infection (such as warmth, redness, or swelling). ?? Medicines ??? Talk with your healthcare provider before taking new medicines, especially if you have other health problems or are taking other medicines. ??? If you need anything for pain, use acetaminophen or ibuprofen, unless you were given a different pain medicine to use.??Talk with your healthcare provider before using these medicines if you: o Have chronic liver or kidney disease o Ever hada stomach ulcer or??gastrointestinal bleeding o Are taking blood-thinner medicines ??? Be careful if you are given prescription pain medicines, narcotics, or medicine for muscle spasm. They can make you sleepy and dizzy. And they can affect your coordination, reflexes, and judgment. Don't drive or do work where you can hurt yourself when taking them. ?? Fall prevention ??? Fix, remove, or replace anything that caused your fall. ??? Make your home safeby keeping walkways clear of objects you may trip over. ??? Use nonslip pads under rugs. Don't use small??area rugs or throw rugs. ??? Don't walk in poorly lit areas. ??? Don't stand on chairs or wobbly ladders. ??? Be careful when reaching overhead or looking upward. This position can cause a loss of balance. ??? Be sure your shoes fit correctly, have nonslip bottoms, and are in good condition. ??? Be careful when going up and down curbs, and walking on uneven sidewalks. ??? If your balance ispoor, think about using a cane or walker. ??? Stay as active as you can. Balance, flexibility, strength, and endurance all come from exercise. They all play a role in preventing falls. ??? If you have pets, know where they are before you stand up or walk so you don't trip over them. ??? Limit alcohol intake. Alcohol can cause balance problems and increase the risk for falls. ??? Use night lights.??? Have your eyes tested to be sure you are seeing well, even if you already wear glasses.? Follow-up Follow up with your healthcare provider, or as advised. If X-rays or CT scans were done, you will be told if there is a change in the reading, especially if it affects treatment. ?? Call 911 Call 911 if any of these happen: ??? Trouble breathing ??? Confusion ??? Trouble waking up ??? Fainting or loss of consciousness ??? Fast or very slow heart rate ??? Seizure ??? Trouble with speech or vision, weakness of an arm or leg ??? Trouble walking or talking, loss of balance, numbness or weakness in one side of your body, or facial droop ?? When to get medical advice Call your healthcare provider right away if any of these happen: ??? Repeated falls, including falls that don't seem to happen for no reason ??? Dizziness ??? Severe headache ??? Blood in vomit or stools (look black or red in color) ?? Last Reviewed Date: 2019 ?? [id number] [employer]. All rights reserved. This information is not intended as a substitute for professional medical care. Always follow your healthcare professional's instructions. ?? * Tito Fleming DO: PERFORM Event Display: Patient Education Leaflets Authored Date: [id number] Fall??Prevention ?? 373945pm Fall??Prevention Falls often take place due to slipping, tripping, or losing your balance. Millions of people fall every year and injure themselves.??Among older adults in the [place] falls are the most common cause oftraumatic brain injuries. Every 20 minutes, an older adult dies from a fall. Here are ways to reduce your risk of falling again: ??? Think about your fall. Was there anything that caused your fall that can be fixed, removed, or replaced? Make your home safe by keeping walkways clear of objects you may trip over, such as electrical cords. ??? Use nonslip pads under rugs. Don't use area rugs orsmall throw rugs. ??? Use nonslip mats in bathtubs and showers. ??? Hang grab rails by the toilet and inside and outside the shower. ??? Install handrails and lights on staircases. The handrails should be on both sides of the stairs. ??? Use night lights. ??? Don't walk in poorly lit areas. ??? Don't stand on chairs or wobbly ladders. ??? Use care when reaching overhead or looking up.??This position can cause a loss of balance. ??? Be sure your shoes fit well, are in good condition, and have non slip bottoms.? Wear shoes both inside and outside of your home. Don't go barefoot or wear slippers. ??? Be cautious when going up and down stairs, curbs, and when walking on uneven sidewalks. ??? If your balance is poor, consider using a cane or walker. Talk with your healthcare provider abouthaving a balance assessment. ??? If your fall was related to alcohol use, stop or limit alcohol intake.??Ask your provider for help if you think you may overuse alcohol and can't stop. ??? If your fall was related to use of sleeping medicines, talk with your provider about this.??You may need to reduce your dosage at bedtime if you wake up during the night to go to the bathroom.? To reducethe need for nighttime bathroom trips: o Don't drink fluids for several hours before going to bed oEmpty your bladder before going to bed o Men can keep a urinal at the bedside ??? Stay as active asyou can. Balance, flexibility, strength, and endurance all come from exercise. They all play a rolein preventing falls. Ask your provider which types of activity are right for you. Try to do some type of exercise every day. ??? Get your eyes checked once a year or more often if your vision changes??? If you have pets, know where they are before you stand up or walk so you don't trip over them. ??? Go over all your medicines with a pharmacist or other provider. This is to see if any of them could make you more likely to fall. Have this type of medicine review at least once every year. ??? Ifyour provider advises a new medicine, ask if the side effects will affect your balance. ??? Don't move quickly from one position to another. For instance, don't stand up fast from sitting. This can cause dizziness and may lead to a fall. ??? Sit down when putting on pants, socks, and shoes. This will make you less likely to lose your balance and fall. ??? Always let your provider know if you havefallen since your last visit. ??? Contact your provider right away if you're having balance problems or falling more often. Last Reviewed Date: 2021 ?? [id number] [employer]. All rights reserved. This information is not intended as a substitute for professional medical care. Always follow your healthcare professional's instructions. ?? CT Abdomen and Pelvis W contrast IV * [facility] , ARIN S: TRANSCRIORQUIDEA Garcia MD, Pasha S: Bright Arriaga MD: SIGN Event Display: Result: Authored Date: CT Chest W/ Contrast, CT Thoracic Spine W/ Contrast, CT Lumbar Spine W/ Contrast, CT Abd/Pelvis W/ IV Contrast Only INDICATION: Hx of Present Illness: mechanical fall Wednesday from standing, c o left lower back flankpain and left LQ left hip pain, pain incr w weight bearing, no head strike, no hematuria; Reason: Other:; Chest trauma, blunt; Clinical Question(s): Other:; Aortic hilar injury TECHNIQUE: Helical CT scan of the chest, abdomen, and pelvis with IV contrast, formatted in 3 planes. The original dataset was reconstructed with a small field of view around the thoracic and lumbar spine utilizing soft tissue and bone algorithm reconstructions in 3 planes. 100 cc of Omnipaque 300 was administered intravenously. This study was performed without oral contrast. Weight-based protocol was performed using automatic exposure control. CTDIvol Body: 8.80 mGy, DLP Body: 624 mGy*cm. COMPARISON: None. FINDINGS: Supervisor Fertilizer view findings, lines and tubes: None. Trachea and airways: Patent without evidence of tracheal or endobronchial lesion. Lungs and pleura: Mild dependent bibasilar atelectasis. No effusion or pneumothorax. Mediastinum and melina: No mass or hematoma. No mediastinal or hilar lymphadenopathy. Type 2 paraesophageal hernia. Normal thyroid. Heart: Heart is normal in size. No pericardial effusion. Moderate coronary artery calcification. Aorta: Mild vascular calcification but no aneurysm. Pulmonary arteries: Normal caliber. No evidence of pulmonary embolism on this study performed without angiographic technique. Chest wall soft tissues: No acute abnormality. Diaphragm: Intact. Liver: Normal in attenuation and morphology. No suspicious lesion. Surgical clips adjacent to the medial aspect of segment 6. Gallbladder: Absent consistent with prior cholecystectomy. Bile ducts: No biliary ductal dilation. Spleen: Normal in size. Pancreas: No suspicious lesion or ductal dilatation. Adrenal glands: No nodule. Kidneys and ureters: Nonobstructing renal calculi to be upper pole of the left kidney. No hydronephrosis or suspicious lesion. Bladder: No wall thickening or surrounding stranding. Reproductive organs: Unremarkable. Stomach, small bowel, and large bowel: Normal caliber stomach and bowel loops. No surrounding inflammatory changes. Appendix: No evidence of acute appendicitis. Peritoneum and retroperitoneum: No ascites or pneumoperitoneum. No omental or mesenteric lesions. Lymph nodes: No enlarged lymph nodes. Blood vessels: Mild vascular calcifications but no aneurysm. No evidence of venous thrombosis. Abdominal and pelvic wall soft tissues: Fat stranding of the subcutaneous soft tissues overlying the left kidney. There is also focal abnormality seen in the anterior right thigh measuring 5 x 6 x 3 cm. Probable hematoma. Bones: Prior kyphoplasty of the L1 vertebral body. Mild multilevel degenerative changes and minimalanterolisthesis of L3 on L4. IMPRESSION: Likely soft tissue contusion seen in the inferior lateral left chest. No rib fractures or other fractures identified. Likely soft tissue injury/hematoma seen in the anterior lateral right thigh Nonobstructing moderate to large left kidney calculus. I have personally reviewed the images and I agree with this report. WSN: [id number] Ordering Physician: Tito Fleming Dictated By: Bright Hernandez MD Dictated Date/Time: 05/21/22 9:10 pm Reviewed By: Pasha Garcia MD Signed By: Pasha Garcia MD Signed Date/Time: 05/21/22 9:15 pm Transcribed By: STEPHANIE Transcribed Date/Time: 05/21/22 9:[address] Lumbar spine W contrast IV * [facility] , CIS S: TRANSCRIBE Pasha Garcia MD: VERIFY Bright Hernandez MD: SIGN Event Display: Result: Authored Date: CT Chest W/ Contrast, CT Thoracic Spine W/ Contrast, CT Lumbar Spine W/ Contrast, CT Abd/Pelvis W/ IV Contrast Only INDICATION: Hx of Present Illness: mechanical fall Wednesday from standing, c o left lower back flankpain and left LQ left hip pain, pain incr w weight bearing, no head strike, no hematuria; Reason: Other:; Chest trauma, blunt; Clinical Question(s): Other:; Aortic hilar injury TECHNIQUE: Helical CT scan of the chest, abdomen, and pelvis with IV contrast, formatted in 3 planes. The original dataset was reconstructed with a small field of view around the thoracic and lumbar spine utilizing soft tissue and bone algorithm reconstructions in 3 planes. 100 cc of Omnipaque 300 was administered intravenously. This study was performed without oral contrast. Weight-based protocol was performed using automatic exposure control. CTDIvol Body: 8.80 mGy, DLP Body: 624 mGy*cm. COMPARISON: None. FINDINGS: Supervisor Fertilizer view findings, lines and tubes: None. Trachea and airways: Patent without evidence of tracheal or endobronchial lesion. Lungs and pleura: Mild dependent bibasilar atelectasis. No effusion or pneumothorax. Mediastinum and melina: No mass or hematoma. No mediastinal or hilar lymphadenopathy. Type 2 paraesophageal hernia. Normal thyroid. Heart: Heart is normal in size. No pericardial effusion. Moderate coronary artery calcification. Aorta: Mild vascular calcification but no aneurysm. Pulmonary arteries: Normal caliber. No evidence of pulmonary embolism on this study performed without angiographic technique. Chest wall soft tissues: No acute abnormality. Diaphragm: Intact. Liver: Normal in attenuation and morphology. No suspicious lesion. Surgical clips adjacent to the medial aspect of segment 6. Gallbladder: Absent consistent with prior cholecystectomy. Bile ducts: No biliary ductal dilation. Spleen: Normal in size. Pancreas: No suspicious lesion or ductal dilatation. Adrenal glands: No nodule. Kidneys and ureters: Nonobstructing renal calculi to be upper pole of the left kidney. No hydronephrosis or suspicious lesion. Bladder: No wall thickening or surrounding stranding. Reproductive organs: Unremarkable. Stomach, small bowel, and large bowel: Normal caliber stomach and bowel loops. No surrounding inflammatory changes. Appendix: No evidence of acute appendicitis. Peritoneum and retroperitoneum: No ascites or pneumoperitoneum. No omental or mesenteric lesions. Lymph nodes: No enlarged lymph nodes. Blood vessels: Mild vascular calcifications but no aneurysm. No evidence of venous thrombosis. Abdominal and pelvic wall soft tissues: Fat stranding of the subcutaneous soft tissues overlying the left kidney. There is also focal abnormality seen in the anterior right thigh measuring 5 x 6 x 3 cm. Probable hematoma. Bones: Prior kyphoplasty of the L1 vertebral body. Mild multilevel degenerative changes and minimalanterolisthesis of L3 on L4. IMPRESSION: Likely soft tissue contusion seen in the inferior lateral left chest. No rib fractures or other fractures identified. Likely soft tissue injury/hematoma seen in the anterior lateral right thigh Nonobstructing moderate to large left kidney calculus. I have personally reviewed the images and I agree with this report. WSN: [id number] Ordering Physician: Tito Fleming Dictated By: Bright Hernandez MD Dictated Date/Time: 05/21/22 9:10 pm Reviewed By: Pasha Garcia MD Signed By: Pasha Garcia MD Signed Date/Time: 05/21/22 9:15 pm Transcribed By: STEPHANIE Transcribed Date/Time: 05/21/22 9:[address] Thoracic spine W contrast IV * [facility] , CIS S: HUSAM Garcia MD, Pasha S: BLANQUITA Hernandez MD, Bright: SIGN Event Display: Result: Authored Date: CT Chest W/ Contrast, CT Thoracic Spine W/ Contrast, CT Lumbar Spine W/ Contrast, CT Abd/Pelvis W/ IV Contrast Only INDICATION: Hx of Present Illness: mechanical fall Wednesday from standing, c o left lower back flankpain and left LQ left hip pain, pain incr w weight bearing, no head strike, no hematuria; Reason: Other:; Chest trauma, blunt; Clinical Question(s): Other:; Aortic hilar injury TECHNIQUE: Helical CT scan of the chest, abdomen, and pelvis with IV contrast, formatted in 3 planes. The original dataset was reconstructed with a small field of view around the thoracic and lumbar spine utilizing soft tissue and bone algorithm reconstructions in 3 planes. 100 cc of Omnipaque 300 was administered intravenously. This study was performed without oral contrast. Weight-based protocol was performed using automatic exposure control. CTDIvol Body: 8.80 mGy, DLP Body: 624 mGy*cm. COMPARISON: None. FINDINGS: Supervisor Fertilizer view findings, lines and tubes: None. Trachea and airways: Patent without evidence of tracheal or endobronchial lesion. Lungs and pleura: Mild dependent bibasilar atelectasis. No effusion or pneumothorax. Mediastinum and melina: No mass or hematoma. No mediastinal or hilar lymphadenopathy. Type 2 paraesophageal hernia. Normal thyroid. Heart: Heart is normal in size. No pericardial effusion. Moderate coronary artery calcification. Aorta: Mild vascular calcification but no aneurysm. Pulmonary arteries: Normal caliber. No evidence of pulmonary embolism on this study performed without angiographic technique. Chest wall soft tissues: No acute abnormality. Diaphragm: Intact. Liver: Normal in attenuation and morphology. No suspicious lesion. Surgical clips adjacent to the medial aspect of segment 6. Gallbladder: Absent consistent with prior cholecystectomy. Bile ducts: No biliary ductal dilation. Spleen: Normal in size. Pancreas: No suspicious lesion or ductal dilatation. Adrenal glands: No nodule. Kidneys and ureters: Nonobstructing renal calculi to be upper pole of the left kidney. No hydronephrosis or suspicious lesion. Bladder: No wall thickening or surrounding stranding. Reproductive organs: Unremarkable. Stomach, small bowel, and large bowel: Normal caliber stomach and bowel loops. No surrounding inflammatory changes. Appendix: No evidence of acute appendicitis. Peritoneum and retroperitoneum: No ascites or pneumoperitoneum. No omental or mesenteric lesions. Lymph nodes: No enlarged lymph nodes. Blood vessels: Mild vascular calcifications but no aneurysm. No evidence of venous thrombosis. Abdominal and pelvic wall soft tissues: Fat stranding of the subcutaneous soft tissues overlying the left kidney. There is also focal abnormality seen in the anterior right thigh measuring 5 x 6 x 3 cm. Probable hematoma. Bones: Prior kyphoplasty of the L1 vertebral body. Mild multilevel degenerative changes and minimalanterolisthesis of L3 on L4. IMPRESSION: Likely soft tissue contusion seen in the inferior lateral left chest. No rib fractures or other fractures identified. Likely soft tissue injury/hematoma seen in the anterior lateral right thigh Nonobstructing moderate to large left kidney calculus. I have personally reviewed the images and I agree with this report. WSN: [id number] Ordering Physician: Tito Fleming Dictated By: Bright Hernandez MD Dictated Date/Time: 05/21/22 9:10 pm Reviewed By: Pasha Garcia MD Signed By: Pasha Garcia MD Signed Date/Time: 05/21/22 9:15 pm Transcribed By: STEPHANIE Transcribed Date/Time: 05/21/22 9:[address] Chest W contrast IV * [facility] , CIS S: TRANSCRIBE Pasha Garcia MD S: VERIFY Bright Hernandez MD: SIGN Event Display: Result: Authored Date: CT Chest W/ Contrast, CT Thoracic Spine W/ Contrast, CT Lumbar Spine W/ Contrast, CT Abd/Pelvis W/ IV Contrast Only INDICATION: Hx of Present Illness: mechanical fall Wednesday from standing, c o left lower back flankpain and left LQ left hip pain, pain incr w weight bearing, no head strike, no hematuria; Reason: Other:; Chest trauma, blunt; Clinical Question(s): Other:; Aortic hilar injury TECHNIQUE: Helical CT scan of the chest, abdomen, and pelvis with IV contrast, formatted in 3 planes. The original dataset was reconstructed with a small field of view around the thoracic and lumbar spine utilizing soft tissue and bone algorithm reconstructions in 3 planes. 100 cc of Omnipaque 300 was administered intravenously. This study was performed without oral contrast. Weight-based protocol was performed using automatic exposure control. CTDIvol Body: 8.80 mGy, DLP Body: 624 mGy*cm. COMPARISON: None. FINDINGS: Supervisor Fertilizer view findings, lines and tubes: None. Trachea and airways: Patent without evidence of tracheal or endobronchial lesion. Lungs and pleura: Mild dependent bibasilar atelectasis. No effusion or pneumothorax. Mediastinum and melina: No mass or hematoma. No mediastinal or hilar lymphadenopathy. Type 2 paraesophageal hernia. Normal thyroid. Heart: Heart is normal in size. No pericardial effusion. Moderate coronary artery calcification. Aorta: Mild vascular calcification but no aneurysm. Pulmonary arteries: Normal caliber. No evidence of pulmonary embolism on this study performed without angiographic technique. Chest wall soft tissues: No acute abnormality. Diaphragm: Intact. Liver: Normal in attenuation and morphology. No suspicious lesion. Surgical clips adjacent to the medial aspect of segment 6. Gallbladder: Absent consistent with prior cholecystectomy. Bile ducts: No biliary ductal dilation. Spleen: Normal in size. Pancreas: No suspicious lesion or ductal dilatation. Adrenal glands: No nodule. Kidneys and ureters: Nonobstructing renal calculi to be upper pole of the left kidney. No hydronephrosis or suspicious lesion. Bladder: No wall thickening or surrounding stranding. Reproductive organs: Unremarkable. Stomach, small bowel, and large bowel: Normal caliber stomach and bowel loops. No surrounding inflammatory changes. Appendix: No evidence of acute appendicitis. Peritoneum and retroperitoneum: No ascites or pneumoperitoneum. No omental or mesenteric lesions. Lymph nodes: No enlarged lymph nodes. Blood vessels: Mild vascular calcifications but no aneurysm. No evidence of venous thrombosis. Abdominal and pelvic wall soft tissues: Fat stranding of the subcutaneous soft tissues overlying the left kidney. There is also focal abnormality seen in the anterior right thigh measuring 5 x 6 x 3 cm. Probable hematoma. Bones: Prior kyphoplasty of the L1 vertebral body. Mild multilevel degenerative changes and minimalanterolisthesis of L3 on L4. IMPRESSION: Likely soft tissue contusion seen in the inferior lateral left chest. No rib fractures or other fractures identified. Likely soft tissue injury/hematoma seen in the anterior lateral right thigh Nonobstructing moderate to large left kidney calculus. I have personally reviewed the images and I agree with this report. WSN: [id number] Ordering Physician: Tito Fleming Dictated By: Bright Hernandez MD Dictated Date/Time: 05/21/22 9:10 pm Reviewed By: Pasha Garcia MD Signed By: Pasha Garcia MD Signed Date/Time: 05/21/22 9:15 pm Transcribed By: STEPHANIE Transcribed Date/Time: 05/21/22 9:06 pm Patient Care team information Care Team Personnel Name: Saadia Abdalla Position: [facility] Onco RN Member Role: Primary Care Nurse Name: Janna Sibley MD Position: [facility] Primary Care Physician Member Role: PCP Address: Address: [address] [place] [address] [address]rd [place] [address]- Name: Nasrin Graf RN Position: [facility] AMB Nurse Member Role: Primary Care Nurse Name: Aislinn Mccauley RN Position: [facility] RN Member Role: Primary Care Nurse Name: Zuri Taylor MD Position: [facility] ED Medicine MD Member Role: Admitting Physician Address: Address: [address] [place] [id number] Name: Tito Fleming DO Position: [facility] Resident Member Role: ED Resident Address: Address: [address] [place] [id number] Name: Karissa Farfan RN Position: [facility] ED RN W/OE and Tasks Member Role: Patient Care Provider Care Team Related Persons Name: AMIRA MURPHY Address: [place] [address] [place], [place] Address: temporary 0 Name: AMIRA MURPHY Address: home [address] [place], [place] Name: AMIRA MURPHY Address: home [address] [place] [id number] Name: TITO MURPHY Address: home [address] [place], [place] Name: TITO MURPHY Address: home [address] [place] [address] Name: TITO MURPHY Address: home [address] [place] [address]
--- OUTSIDE RECORDS SUMMARY | 2023-12-27 06:47 | XMS_ITS | Continuity of Care Document ---
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 Name Role Phone Toñito COLE, [facility] Primary Care Physician Encounter [facility] Date(s): 06/23/23 - 07/23/23 [facility] [address] [id number] Allergies, Adverse Reactions, Alerts Substance Reaction Severity [...] virus vaccine, inactivated 5 04/26/09 Gi henri [id number] 12y+ bivalent booster vax 03/12/22 Recorded SARS-CoV-2 mRNA ([id number]) vax 10/17/21 Recorded SARS-CoV-2 (COVID-19) mRNA BNT-162b2 vac 03/28/21 Recorded SARS-CoV-2 (COVID-19) mRNA BNT-162b2 vac 08/15/20 Given pneumococcal 23-valent vaccine 09/24/16 Given pneumococcal 23-valent vaccine 6 10/24/04 Given pneumococcal 13-valent vaccine 07/10/15 Given Zoster Vaccine Live 7 09/13/08 Given diphtheria-tetanus toxoids (DT) 10/29/03 Given 1Admin Note: [facility] 2Admin Note: [facility] [place] 3Admin Note: [facility] [place] 4Result Comment: [07/10/2015] [facility] 5Admin Note: [...] Maintenance,11/17/22 8:37:00 EDT, Route to Pharmacy Electronically, [id number], Partial fill upon patient request if the [...] 0 Refills, Maintenance, 06/16/23 10:10:00 EST, Tablet, [id number], Part... Start Date: 06/16/23 Status: Ordered omeprazole 20 mg oral delayed release tablet 1 tablet = 20 mg, By Mouth, 2 times a day, # 180 tablet, 1 Refills, Maintenance, 07/20/23 13:18:00 EST, EC Tablet, [facility], Partial fill upon patient request [...] Primary Care Member Role: PCP Address: Address: [address] [place] [address] [address], [place] [address] Name: Aislinn Mccauley RN Position: [facility] RN Member Role: Primary Care Nurse Care Team Related Persons Name: AMIRA MURPHY Address: home [address] [place] [address] [place] Address: temporary 0 Name: AMIRA MURPHY Address: home [address] [facility] [id number] Name: AMIRA MURPHY Address: home [address] [place] [address] Name: TITO MURPHY Address: home [address] [place] [address] [place] Name: TITO MURPHY Address: home [address] [place] [address] Name: TITO MURPHY Address: home [address] [place] [address]
--- OUTSIDE RECORDS SUMMARY | 2023-12-27 06:47 | XMS_ITS | Continuity of Care Document ---
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 Name Role Phone Toñito COLE, [facility] Primary Care Physician [place] [facility] [place]/27[place]22 - 07/27/22 [facility] [address] [place], [address], [address] [place] [id number] Allergies, Adverse Reactions, Alerts Substance Reaction Severity [...] virus vaccine, inactivated 5 04/26/09 Gi henri [id number] 12y+ bivalent booster vax 03/12/22 Recorded SARS-CoV-2 mRNA ([id number]-[id number]) vax 10/17/21 Recorded SARS-CoV-2 (COVID-19) mRNA BNT-162b2 vac 03/28/21 Recorded pneumococcal 23-valent vaccine 09/24/16 Given pneumococcal 23-valent vaccine 6 10/24/04 Given pneumococcal 13-valent vaccine 07/10/15 Given Zoster Vaccine Live 7 09/13/08 Given diphtheria-tetanus toxoids (DT) 10/29/03 Given 1[facility] 3[facility] Note: Ajitcece [facility] [place] 4Result Comment: [07/10/2015] joseph rivera 5Admin Note: [...] 07/30/22 3:14:00 EST, 07/23/22 3:14:00 EST, Tablet, [facility][id number], Partial fill upon patient request if the [...] Care Team Personnel Name: Saadia Abdalla Position: [facility] Onco RN Member Role: Primary Care Nurse Name: Janna Sibley MD Position: [facility] Primary Care Physician Member Role: PCP Address: Address: [address] [place] [address] [address] [place], [place] [address] Name: Nasrin Graf RN Position: [facility] AMB Nurse Member Role: Primary Care Nurse Name: Aislinn Mccauley RN Position: [facility] RN Member Role: Primary Care Nurse Care Team Related Persons Name: AMIRA MURPHY Address: home [address] [place], [place] Address: [facility] 0 Name: AMIRA MURPHY Address: home [address] [place] [address] Name: AMIRA MURPHY Address: home [address] [facility] [id number] Name: TITO MURPHY Address: home [address] [place] [address] [place] Name: TITO MURPHY Address: home [address] [place] [address] Name: TITO MURPHY Address: home [address] [place] [address]
--- OUTSIDE RECORDS SUMMARY | 2023-12-27 06:47 | XMS_ITS | Continuity of Care Document ---
Author Organization [facility] Cardiology Address [address] [place] [address]- Care Team Providers Care Pourer Off Name Role Phone Toñito COLE, [facility] Primary Care Physician ( [phone] Encounter [facility] [place] Date(s): 06/15/23 - 07/15/23 [facility] [address] [place] [address]- [place] Allergies, Adverse Reactions, Alerts Substance Reaction Severity [...] virus vaccine, inactivated 5 04/26/09 Gi henri [id number] 12y+ bivalent booster vax 03/12/22 Recorded SARS-CoV-2 mRNA (xmuzncu-yyui-qayor) vax 10/17/21 Recorded SARS-CoV-2 (COVID-19) mRNA BNT-162b2 vac 03/28/21 Recorded SARS-CoV-2 (COVID-19) mRNA BNT-162b2 vac 08/15/20 Given pneumococcal 23-valent vaccine 09/24/16 Given pneumococcal 23-valent vaccine 6 10/24/04 Given pneumococcal 13-valent vaccine 07/10/15 Given Zoster Vaccine Live 7 09/13/08 Given diphtheria-tetanus toxoids (DT) 10/29/03 Given 1[facility] Note: [facility] 2Admin Note: Joseph ROMELIA Phelan [place] 3Admin Note: Joseph Romelia [facility] pallavi [place] 4Result Comment: [07/10/2015] zachcece rivera [...] Maintenance,11/17/22 8:37:00 EDT, Route to Pharmacy Electronically, [facility] #[id number], Partial fill upon patient request if the [...] 0 Refills, Maintenance, 06/16/23 10:10:00 EST, Tablet, [facility] #[id number], Part... Start Date: 06/16/23 Status: Ordered omeprazole [...] Primary Care Member Role: PCP Address: Address: [address] [place] [address] [address] [place], [place] [address] Name: Aislinn Mccauley RN Position: [facility] RN Member Role: Primary Care Nurse Care Team Related Persons Name: AMIRA MURPHY Address: home [address] [facility] [phone] Name: AMIRA MURPHY Address: home [address] [place] [address] Name: AMIRA MURPHY Address: home [address] [place] [address] [place] Address: temporary 0 Name: TITO MURPHY Address: home [address] [place] [address] [place] Name: TITO MURPHY Address: [place] [address] [place] [address] Name: TITO MURPHY Address: home [address] [place] [address]
--- OUTSIDE RECORDS SUMMARY | 2023-12-27 06:47 | XMS_ITS | Continuity of Care Document ---
Author Organization [facility]cer Care Address [address] [place] [address]- Care Team Providers Care Aircraft Launch And Recovery Technician Name Role Phone Colt LANDIN, Jud Guzman Primary Care Physicia n Encounter [facility] [place] Date(s): 09/05/20 - 10/05/20 [facility] [address] [place] [address]- Allergies, Adverse Reactions, Alerts Substance Reaction Severity [...] diphtheria-tetanus toxoids (DT) 10/29/03 Given 1Admin Note: [facility] 2Admin Note: Joseph Phelan [place] 3Admin Note: Joseph Rivera [facility] marietania [place] 4Result Comment: [07/10/2015] joseph rivera 5Admin Note: [...]
--- OUTSIDE RECORDS SUMMARY | 2023-12-27 06:47 | XMS_ITS | Continuity of Care Document ---
Author Organization [facility] Adult Address [address] [place] [address]- Care Team Providers Care Agriculture Manager Name Role Phone Toñito COLE, [facility] Primary Care Physician Encounter [facility] Date(s): 09/09/22 - 10/09/22 [facility] Adult [address] [place] [address]- Allergies, Adverse Reactions, Alerts Substance Reaction Severity [...] virus vaccine, inactivated 5 04/26/09 Gi henri [id number] 12y+ bivalent booster vax 03/12/22 Recorded SARS-CoV-2 mRNA (chbaqvz-ufjn-lqmqf) vax 10/17/21 Recorded SARS-CoV-2 (COVID-19) mRNA BNT-162b2 vac 03/28/21 Recorded pneumococcal 23-valent vaccine 09/24/16 Given pneumococcal 23-valent vaccine 6 10/24/04 Given pneumococcal 13-valent vaccine 07/10/15 Given Zoster Vaccine Live 7 09/13/08 Given diphtheria-tetanus toxoids (DT) 10/29/03 Given 1Admin Note: [facility] 2Admin Note: Joseph RIVERA [facility] 3Admin Note: Joseph Rivera [facility] 4Result Comment: [07/10/2015] zachcece rivera 5Admin Note: [...] 08/24/22 11:35:00 EST, Route to Pharmacy Electronically, [facility][id number], Partial fill upon patient request if the [...] Care Physician Member Role: PCP Address: Address: [address] [place] [address] [address] [place] [address]- Name: Nasrin Graf RN Position: [facility] AMB Nurse Member Role: Primary Care Nurse Name: Aislinn Mccauley RN Position: [facility] RN Member Role: Primary Care Nurse Care Team Related Persons Name: AMIRA MURPHY Address: home [address] [place], [place] Address: temporary 0 Name: AMIRA MURPHY Address: [place] [address] [place], [place] Name: AMIRA MURPHY Address: home [address] [facility] [phone] Name: TITO MURPHY Address: [address] [place] [address] Name: TITO MURPHY Address: [place] [address] [place] [address] Name: TITO MURPHY Address: [address] [place] [address]
--- OUTSIDE RECORDS SUMMARY | 2023-12-27 06:47 | XMS_ITS | Continuity of Care Document ---
Author Organization [facility] Adult Address [address] [place] [address]- Care Team Providers Care Adult Basic Studies Teacher Name Role Phone Colt LANDIN, Jud Guzman Primary Care Physicia n En[place] [facility] [place] Date(s): 08/13/21 - 09/12/[address] [address]- Attending Physician: Freddie Mcgrath Admitting Physician: Admtr, [...] 1Admin Note: [facility] 2Admin Note: Ajitcece Phelan [place] 3Admin Note: Joseph León [facility] pallavi ferrell 4Result Comment: [07/10/2015] joseph [...] 08/21/21 13:28:00 EST, Route to Pharmacy Electronically, [facility] #[id number], Partial fill upon patient request if the [...]
--- OUTSIDE RECORDS SUMMARY | 2023-12-27 06:47 | XMS_ITS | Continuity of Care Document ---
Author Organization [facility] Adult Address [address] [place] [address]- Care Team Providers Care Stock Selector Name Role Phone Toñito COLE, [facility] Primary Care Physician Encounter [facility] Date(s): 10/15/23 - 11/14/23 [facility] Adult [address] [place] [address]- Allergies, Adverse Reactions, Alerts Substance Reaction Severity [...] Give n influenza virus vaccine, inactivated 05/04/12 Amrty rded influenza virus vaccine, inactivated 04/03/11 Marty rded influenza virus vaccine, inactivated 05/02/10 Give n influenza virus vaccine, inactivated 6 04/26/09 Gi henri SARS-CoV-2(COVID-19)mRNA-LNP vac([id number]) 04/10/23 Recorded [id number]-[id number] 12y+ bivalent booster vax 03/12/22 Recorded SARS-CoV-2 mRNA (sxfmwuv-vygd-hrsnw) vax 10/17/21 Recorded SARS-CoV-2 (COVID-19) mRNA BNT-162b2 vac 03/28/21 Recorded SARS-CoV-2 (COVID-19) mRNA BNT-162b2 vac 08/15/20 Given SARS-CoV-2 (COVID-19) mRNA BNT-162b2 vac 07/25/20 Recorded pneumococcal 23-valent vaccine 09/24/16 Given pneumococcal 23-valent vaccine 7 10/24/04 Given pneumococcal 13-valent vaccine 07/10/15 Given Zoster Vaccine Live 8 09/13/08 Given diphtheria-tetanus toxoids (DT) 10/29/03 Given 1Result Comment: [facility] [id number] 2Admin Note: [facility] 3Admin Note: [facility] 4Admin Note: [facility] 5Result Comment: [07/10/2015] zache nicole 6Admin Note: [...] 13:21:00 EDT, Aerosol, Route to Pharmacy Electronically, [id number], [facility]... Start Date: 10/13/23 [...] 13:21:00 EDT, Powder, Route to Pharmacy Electronically, [id number], [facility]... Start Date: 10/13/23 Stop [...] 0 Refills, Maintenance, 06/16/23 10:10:00 EST, Tablet, [facility] #[id number], Part... Start Date: 06/16/23 Status: Ordered omeprazole [...] Primary Care Member Role: PCP Address: Address: [address] [place] [id number] Name: Aislinn Mccauley RN Position: [facility] RN Member Role: Primary Care Nurse Care Team Related Persons Name: AMIRA MURPHY Address: home [address] [place] [phone] Name: AMIRA MURPHY Address: [place] [address] [place] [address] [place] Address: [facility] 0 Name: AMIRA MURPHY Address: home [address] [place] [address] Name: TITO MURPHY Address: home [address] [place] [address] [place] Name: TITO MURPHY Address: [place] [address] [place] [address] Name: TITO MURPHY Address: [place] [address] [place] [address]
--- OUTSIDE RECORDS SUMMARY | 2023-12-27 06:47 | XMS_ITS | Continuity of Care Document ---
Author Organization [facility] Adult Address [address] [place] [address]- Care Team Providers Care Verification Engineer Name Role Phone Toñito COLE, Janna Primary Care Physician Encounter [facility] [place] Date(s): 05/27/22 - 06/03/22 [facility] Adult [address] [place] [address]- Encounter Diagnosis Fall at home(Discharge Diagnosis) - 05/27/22 Chest wall contusion(Discharge Diagnosis) - 05/27/22 Attending Physician: Janna Sibley MD Allergies, Adverse [...] virus vaccine, inactivated 5 04/26/09 Gi henri [id number] 12y+ bivalent booster vax 03/12/22 Recorded SARS-CoV-2 mRNA (kmfzhim-rfhz-ffsdo) vax 10/17/21 Recorded SARS-CoV-2 (COVID-19) mRNA BNT-162b2 vac 03/28/21 Recorded pneumococcal 23-valent vaccine 09/24/16 Given pneumococcal 23-valent vaccine 6 10/24/04 Given pneumococcal 13-valent vaccine 07/10/15 Given Zoster Vaccine Live 7 09/13/08 Given diphtheria-tetanus toxoids (DT) 10/29/03 Given 1Admin Note: [facility] 2[facility] [place] 3[facility] Note[facility] 4Result Comment: [07/10/2015] [facility] 5Admin Note: [place] 6Admin Note: Tapan [...] 05/27/22 10:02:00 EST, Route to Pharmacy Electronically, [facility] #[id number], Partial fill upon patient requ... Start Date: [...] 06/25/22 10:09:00 EST, 05/27/22 10:09:00 EST, Tablet, [facility] #[id number], Partial fill upon patient request if the [...] Dates Health Status Cl inical Service Informant Fall at home Discharge Diagnosis 05/27/22 Chest wall contusion Discharge Diagnosis 05/27/22 Vital Signs Most recent to oldest [Reference Range]: 1 Height 159 cm (05/27/22 9:26 AM) Weight 75 kg (05/27/22 9:26 AM) Oxygen Saturation [94-100 %] 99 % (05/27/22 9:26 AM) Pulse Rate [55-90 bpm] 86 bpm (05/27/22 9:26 AM) Body Mass Index [18.5-24.99 kg/m2] 29.67 kg/m2 *H* (05/27/22 9:26 AM) Temperature [96.8-100.4 DegF] 98.6 DegF (05/27/22 9:26 AM) Mode of Delivery (Oxygen) Room air (05/27/22 9:26 AM) Blood pressure sites Arm, left (05/27/22 9:26 AM) Temperature Route Temporal (05/27/22 9:26 AM) Weight Obtained Via Standing scale (05/27/22 9:26 AM) Social History Social History Type Response Smoking Status Never smoker entered on: 05/23/14 Sex Female Note * Nasra Montalvo: PERFORM, SIGN, VERIFY Event Display: Patient Education/Instruction Authored Date: [id number] [facility] *[facility] [place] [facility] Clinical Summary Name MILLER MURPHY Age 86 Years 1935 PCP Toñito COLE, Janna PCP Visit Date 05/27/2022 09:07:00 Additional Instructions: Scheduled Appointments?? Future Appointments ?No [...] for 90 Days. Refills: 2. Next Dose: Medications to Continue with No [...] TWICE PER WEEK. Refills: 2. Next Dose: Lamotrigine (lamotrigine 100 [...] orders Vital Signs Height 159 cm Weight 75 kg BMI 29.67 kg/m2 Blood Pressure / Temperature 98.6 DegF Pulse Rate 86 bpm Respiratory Rate 02 Sat Mode of Delivery 99 %/Room air You can now view a summary of your hospital visit from the comfort of your home through a free online portal called [employer]. [employer] is a website that allows you to securely view your medical information including discharge summary, medications and follow-up visits. ??You can alsosend a secure electronic message to your doctor???s office to request appointments, renew medications or just ask a question. You can enroll at [email or web address] or register during your next office visit. [...] [facility] provider by calling [facility] [employer] Link at [phone]. For information about the plan of care [...] Care Team Personnel Name: Saadia Abdalla Position: [facility] Onco RN Member Role: Primary Care Nurse Name: Janna Sibley MD Position: [facility] Primary Care Physician Member Role: PCP Address: Address: [address] [place] [address] 3rd Floor [facility] [place] [address]- [place] Name: Homar RN, Nasrin Position: [facility] DOROTHEA Nurse Member Role: Primary Care Nurse Name: Aislinn Mccauley RN Position: [facility] RN Member Role: Primary Care Nurse Care Team Related Persons Name: AMIRA MURPHY Address: [address] [place] Address: [facility] 0 Name: AMIRA MURPHY Address: home [address] [place], [place] Name: AMIRA MURPHY Address: home [address] [facility] [phone] Name: TITO MURPHY Address: home [address] [place] [address] [place] Name: TITO MURPHY Address: [place] [address] [place], [place] Name: TITO MURPHY Address: home [address] [place] [address]
--- OUTSIDE RECORDS SUMMARY | 2023-12-27 06:47 | XMS_ITS | Continuity of Care Document ---
Author Organization [facility] Neu[facility] Address Unknown Care Team Providers Care Cardiovascular Surgical Tech Name Role Phone Toñito COLE, Janna Primary Care Physician Encounter [facility] [place] Date(s): 08/18/21 - 11/16/21 [facility] Attending Physician: Joellen Murray NP Admitting Physician: Joellen Murray NP Allergies, Adverse Reactions, Alerts Substance Reaction [...] annmarie high dose 2Admin Note: Chelo Phelan [place] 3Admin Note: Chelo Rivera [facility] pallavi ferrell 4Result Comment: [07/10/2015] chelo rivera 5Admin Note: [place] 6Admin Note: Pallavi 7Admin Note: diluent lot [...] 08/21/21 13:28:00 EST, Route to Pharmacy Electronically, [facility] #[id number], Partial fill upon patient request if the [...]
--- OUTSIDE RECORDS SUMMARY | 2023-12-27 06:47 | XMS_ITS | Continuity of Care Document ---
Author Organization [facility] Adult Address [address] [place] [address]- Care Team Providers Care Modeling Manager Name Role Phone Toñito COLE, [facility] Primary Care Physician [place] [facility] 05/26/22 - 06/25/22 [facility] Adult [address] [place] [address]- Allergies, Adverse Reactions, Alerts Substance Reaction Severity [...] virus vaccine, inactivated 5 04/26/09 Gi henri [id number] 12y+ bivalent booster vax 03/12/22 Recorded SARS-CoV-2 mRNA (ezzzmzq-xusg-cyeqk) vax 10/17/21 Recorded SARS-CoV-2 (COVID-19) mRNA BNT-162b2 vac 03/28/21 Recorded pneumococcal 23-valent vaccine 09/24/16 Given pneumococcal 23-valent vaccine 6 10/24/04 Given pneumococcal 13-valent vaccine 07/10/15 Given Zoster Vaccine Live 7 09/13/08 Given diphtheria-tetanus toxoids (DT) 10/29/03 Given 1Admin Note: [facility] 2Admin Note: Joseph Phelan [place] 3Admin Note: Joseph Romelia [facility] pallavi [place] 4Result Comment: [07/10/2015] joseph rivera 5Admin Note: [...] Care Team Personnel Name: Saadia Abdalla Position: [facility] Onco RN Member Role: Primary Care Nurse Name: Janna Sibley MD Position: [facility] Primary Care Physician Member Role: PCP Address: Address: [address] [place] [id number] Name: Homar RN, Nasrin Position: [facility] AMB Nurse Member Role: Primary Care Nurse Name: Aislinn Mccauley RN Position: [facility] RN Member Role: Primary Care Nurse Care Team Related Persons Name: AMIRA MURPHY Address: home [address] [place] [address] Name: AMIRA MURPHY Address: home [address] [facility] [phone] Name: AMIRA MURPHY Address: [place] [address] [place], [place] Address: temporary 0 Name: TITO MURPHY Address: [address] [place] [address] [place] Name: TITO MURPHY Address: [place] [address] [place] [address] Name: TITO MURPHY Address: [address] [place] [address]
--- OUTSIDE RECORDS SUMMARY | 2023-12-27 06:48 | XMS_ITS | Continuity of Care Document ---
Author Organization [facility] Address [address] [place] [address]- Care Team Providers Care Experimental Psychologist Name Role Phone Toñito COLE, [facility] Primary Care Physician Encounter [facility] [place] Date(s): 02/26/22 - 03/28/22 [facility] [address] [place] [phone] Allergies, Adverse Reactions, Alerts Substance Reaction [...] Name: Janna Sibley MD Address: Address: [address] 3rd Floor [place], [place] [address]
--- OUTSIDE RECORDS SUMMARY | 2023-12-27 06:48 | XMS_ITS | Continuity of Care Document ---
Author Organization [facility] Address [address] [facility], [address] [place] [address]- Care Team Providers Care Sheet Sorter Name Role Phone Toñito COLE, Janna Primary Care Physician Encounter [facility] [place] Date(s): 10/29/21 - 11/28/21 [facility] [address] [facility] [place] [place] [address] Attending Physician: Admtr, Ar8 Admitting Physician: Admtr, Ar8 Referring Physician: Admtr, [...] Joseph Phelan [place] 3Admin Note: Joseph León [facility] pallavi [place] 4Result Comment: [07/10/2015] joseph nicole 5Admin Note: [...] 08/21/21 13:28:00 EST, Route to Pharmacy Electronically, [facility] #[id number], Partial fill upon patient request if the [...]
--- OUTSIDE RECORDS SUMMARY | 2023-12-27 06:48 | XMS_ITS | Continuity of Care Document ---
Author Organization [facility] Adult Address [address] [place] [address]- Care Team Providers Care Environmental Studies Faculty Member Name Role Phone Colt LANDIN, Jud Guzman Primary Care Physicia n Encounter [facility] Date(s): 05/29/20 - 06/05/20 [facility] Adult [address] [place] [address]- Encounter Diagnosis Medicare annual wellness visit, initial(Discharge Diagnosis) - 05/29/20 Malignant melanoma(Discharge Diagnosis) - 05/29/20 Osteopenia(Discharge Diagnosis) - 05/29/20 Lumbar spinal stenosis(Discharge Diagnosis) - 05/29/20 Obstructive sleep apnea(Discharge Diagnosis) - 05/29/20 Gastroesophageal reflux disease with hiatal hernia(Discharge Diagnosis) - 05/29/20 Chronic polyneuropathy(Discharge Diagnosis) - 05/29/20 Hypercholesterolemia(Discharge Diagnosis) - 05/29/20 Hypertension(Discharge Diagnosis) - 05/29/20 Attending Physician: Not on Staff, Attending MD Referring Physician: Colt LANDIN, Jud Guzman Allergies, Adverse [...] Joseph Phelan [place] 3Admin Note: Joseph Rivera [facility] pallavi ferrell 4Result Comment: [07/10/2015] [...] Status Clinical Service Informant Hypertension Discharge Diagnosis 05/29/20 Hypercholesterolemia Discharge Diagnosis 05/29/20 Gastroesophageal reflux disease with hiatal hernia Discharge Diagnosis 05/29/20 Chronic polyneuropathy Discharge Diagnosis 05/29/20 Obstructive sleep apnea Discharge Diagnosis 05/29/20 Lumbar spinal stenosis Discharge Diagnosis 05/29/20 Osteopenia Discharge Diagnosis 05/29/20 Malignant melanoma Discharge Diagnosis 05/29/20 Medicare annual wellness visit, initial Discharge Diagnosis 05/29/20 Vital Signs Most recent to oldest [Reference Range]: 1 2 Height 160 cm (05/29/20 11:01 AM) 160 cm (05/29/20 8:47 AM) Weight 81.0 kg (05/29/20 8:47 AM) Oxygen Saturation [94-100 %] 99 % (05/29/20 8:47 AM) Pulse Rate [55-90 bpm] 59 bpm (05/29/20 8:47 AM) Body Mass Index [18.5-24.99] 31.64 *>HHI* (05/29/20 8:47 AM) Blood Pressure [90-138/55-84 mm Hg] 130/ 70mm Hg (05/29/20 11:01 AM) 138/70mm Hg (05/29/20 8:47 AM) Blood pressure sites Arm, right (05/29/20 8:47 AM) Weight Obtained Via Standing scale (05/29/20 8:47 AM) Social History Social History Type Response Smoking Status Never smoker entered on: 05/23/14 Sex Female
--- OUTSIDE RECORDS SUMMARY | 2023-12-27 06:48 | XMS_ITS | Continuity of Care Document ---
Author Organization [facility] Adult Address [address] [place] [address]- Care Team Providers Care Group Sales Manager Name Role Phone Toñito COLE, Janna Primary Care Physician Encounter [facility] Date(s): 04/28/22 - 05/05/22 [facility] [address] [place] [address]- Encounter Diagnosis Fall(Discharge Diagnosis) - 04/28/22 Hip mass(Discharge Diagnosis) - 04/28/22 Anemia(Discharge Diagnosis) - 04/28/22 Attending Physician: Janna Sibley MD Allergies, Adverse [...] virus vaccine, inactivated 5 04/26/09 Gi henri [id number] 12y+ bivalent booster vax 03/12/22 Recorded SARS-CoV-2 mRNA (bosazfe-mtxo-hrqda) vax 10/17/21 Recorded SARS-CoV-2 (COVID-19) mRNA BNT-162b2 vac 03/28/21 Recorded pneumococcal 23-valent vaccine 09/24/16 Given pneumococcal 23-valent vaccine 6 10/24/04 Given pneumococcal 13-valent vaccine 07/10/15 Given Zoster Vaccine Live 7 09/13/08 Given diphtheria-tetanus toxoids (DT) 10/29/03 Given 1[facility] 2[facility] Note: [facility] 3Admin Note: [facility] 4Result Comment: [07/10/2015] zache nicole 5Admin Note: Tapan 6Admin Note: Tapan [...] Diagnosis Diagnosis Type Effective Dates Health Status Clini hood Service Informant Fall Discharge Diagnosis 04/28/22 Hip mass Discharge Diagnosis 04/28/22 Anemia Discharge Diagnosis 04/28/22 Vital Signs Most recent to oldest [Reference Range]: 1 Height 159 cm (04/28/22 3:47 PM) Weight 79 kg (04/28/22 3:47 PM) Oxygen Saturation [94-100 %] 97 % (04/28/22 3:47 PM) Pulse Rate [55-90 bpm] 75 bpm (04/28/22 3:47 PM) Body Mass Index [18.5-24.99 kg/m2] 31.25 kg/m2 *>HHI* (04/28/22 3:47 PM) Blood Pressure [90-138/55-84 mm Hg] 111/ 64mm Hg (04/28/22 3:47 PM) Mode of Delivery (Oxygen) Room air (04/28/22 3:47 PM) Blood pressure sites Arm, left (04/28/22 3:47 PM) Weight Obtained Via Standing scale (04/28/22 3:47 PM) Social History Social History Type Response Smoking Status Never smoker entered on: 05/23/14 Sex Female Note * Nasra Montalvo: PERFORM, SIGN, VERIFY Event Display: Patient Education/Instruction Authored Date: [id number] [facility] [place] [facility] Clinical Summary Name MILLER MURPHY Age 86 Years 1935 PCP Janna Sibley MD PCP Visit Date 04/28/2022 15:15:00 Additional Instructions: Scheduled Appointments?? Future Appointments ?*[facility] ?[address] ?[place],??[place],??[address] ?Phone:??--?Fax:??-- ?Appt. Date:??05/20/2022?1:30 PM ?Scheduled Provider:??Connie LANIDN, Elizabeth Patton Follow-Up Instructions ?? Diagnosis Anemia, unspecified; Unspecified fall, initial encounter; Localized swelling, mass and lump, unspecified lower limb Medications: Please continue your medications until treatment [...] Equipment (CPAP Equipment) Next Dose: Estradiol Topical (Estrace Vaginal Cream 0.1 mg/g) 1 gram Vaginally at bedtime twice per week. Refills: 4. Next Dose: Lamotrigine (lamotrigine 100 mg oral [...] imipramine Medications Given This Visit Future Orders ?US Soft Tissue Pelvis/ Buttocks? Order Date:04/28/22?- Complete by?04/28/22 Vital Signs Height 159 cm Weight 79 kg BMI 31.25 kg/m2 Blood Pressure 111 mm Hg/64 mm Hg Temperature Pulse Rate 75 bpm Respiratory Rate 02 Sat Mode of Delivery 97 %/Room air You can now view a summary of your hospital visit from the comfort of your home through a free online portal called [address]. [address] is a website that allows you to securely view your medical information including discharge summary, medications and follow-up visits. ??You can alsosend a secure electronic message to your doctor???s office to request appointments, renew medications or just ask a question. You can enroll at [email or web address] or register during your next office visit. [...] primary care provider, you may find a [facility] provider by calling [facility] at [phone]. For information about the plan of care [...] Sibley MD Position: [facility] Primary Care Physician Member Role: PCP Address: Address: [address] [place] [address] [address] [place] [address]- Name: Homar HUA, Nasrin Position: [facility] AMB Nurse Member Role: Primary Care Nurse Name: Aislinn Mccauley RN Position: [facility] DOROTHEA Nurse Member Role: Primary Care Nurse Care Team Related Persons Name: AMIRA MURPHY Address: [address] [address] Address: [facility] 0 Name: AMIRA MURPHY Address: [place] [address] Name: AMIRA MURPHY Address: [place] [address] Name: TITO MURPHY Address: [address] [address] Name: TITO MURPHY Address: [address] [address] Name: TITO MURPHY Address: [address] [address]
--- OUTSIDE RECORDS SUMMARY | 2023-12-27 06:48 | XMS_ITS | Continuity of Care Document ---
Author Organization [facility] Adult Address [address] [place] [address]- Care Team Providers Care Building Certifier Name Role Phone Toñito COLE, [facility] Primary Care Physician Encounter [facility] Date(s): 11/04/23 - 12/04/[address] [address]- Allergies, Adverse Reactions, Alerts Substance Reaction Severity [...] vaccine, inactivated 6 04/26/09 Gi henri SARS-CoV-2(COVID-19)mRNA-LNP vac([id number]) 04/10/23 Recorded [id number] 12y+ bivalent booster vax 03/12/22 Recorded SARS-CoV-2 mRNA (gxddoju-lvar-evcxy) vax 10/17/21 Recorded SARS-CoV-2 (COVID-19) mRNA BNT-162b2 vac 03/28/21 Recorded SARS-CoV-2 (COVID-19) mRNA BNT-162b2 vac 08/15/20 Given SARS-CoV-2 (COVID-19) mRNA BNT-162b2 vac 07/25/20 Recorded pneumococcal 23-valent vaccine 09/24/16 Given pneumococcal 23-valent vaccine 7 10/24/04 Given pneumococcal 13-valent vaccine 07/10/15 Given Zoster Vaccine Live 8 09/13/08 Given diphtheria-tetanus toxoids (DT) 10/29/03 Given 1Result Comment: [facility] [id number] 2Admin Note: [facility] 3Admin Note: [facility] 4Admin Note: [facility] 5Result Comment: [07/10/2015] zache aid 6Admin Note: Tapan 7Admin Note: Tapan 8Admin [...] 13:21:00 EDT, Aerosol, Route to Pharmacy Electronically, [id number], [facility]... Start Date: 10/13/23 [...] 13:21:00 EDT, Powder, Route to Pharmacy Electronically, [id number], [facility]... Start Date: 10/13/23 Stop [...] tablet, Refills 1, Tot. Refills 1, Maintenance, 11/29/23 15:44:00 EDT, Route to Pharmacy Electronically, [facility], 160, cm, 11/09/23 11:30:00 EDT, Height, 77.3, kg, 10/29/23 13:00:00 EDT,... Start Date: 11/29/23 Status: Ordered lamotrigine 25 mg oral tablet [...] 0 Refills, Maintenance, 06/16/23 10:10:00 EST, Tablet, [facility][id number], Part... Start Date: 06/16/23 Status: Ordered omeprazole [...] Confirmed Active Moderate persistent asthma Confirmed Active Obese class I Confirmed Active [...] Personnel Name: Saadia Abdalla Position: [facility] Onco RN Member Role: Primary Care Nurse Name: Janna Sibley MD Position: [facility] Physician - Primary Care Member Role: PCP Address: Address: [address] [place] [address] [address] [place], [place] [address] Name: Aislinn Mccauley RN Position: [facility] RN Member Role: Primary Care Nurse Care Team Related Persons Name: AMIRA MURPHY Address: [place] [address] [place] [id number] Name: AMIRA MURPHY Address: [place] [address] [place] [address] Address: [facility] 0 Name: AMIRA MURPHY Address: home [address] [place] [address] Name: TITO MURPHY Address: home [address] [place] [address] Name: TITO MURPHY Address: home [address] [place] [address] Name: TITO MURPHY Address: home [address] [place] [address]
--- OUTSIDE RECORDS SUMMARY | 2023-12-27 06:48 | XMS_ITS | Continuity of Care Document ---
Author Organization [facility] Address [address] [facility], 3r d Floor, [address] [place] [address]- Care Team Providers Care Fiber Optics Technician Name Role Phone Colt LANDIN, Jud Guzman Primary Care Physicia n Encounter [facility] Date(s): 09/09/20 - 10/09/20 [facility] [address], [address] Floor, [address] [place] [address]- Allergies, Adverse Reactions, Alerts Substance Reaction Severity [...] Joseph Phelan [place] 3Admin Note: Joseph Rivera [facility] [place] 4Result Comment: [07/10/2015] joseph rivera 5Admin Note: [...]
--- OUTSIDE RECORDS SUMMARY | 2023-12-27 06:48 | XMS_ITS | Continuity of Care Document ---
Author Organization [facility] Address [address] [facility], 3r d Floor, [address] [place] [address]- Care Team Providers Care Biscuit Machine Operator Name Role Phone Toñito COLE, [facility] Primary Care Physician Encounter [facility] Date(s): 07/15/23 - 08/14/23 [facility] [address], 3[address] Floor, [address] [place] [address]- Allergies, Adverse Reactions, Alerts Substance Reaction Severity [...] virus vaccine, inactivated 5 04/26/09 Gi henri [id number] 12y+ bivalent booster vax 03/12/22 Recorded SARS-CoV-2 mRNA (ledsxbj-hswh-lufqi) vax 10/17/21 Recorded SARS-CoV-2 (COVID-19) mRNA BNT-162b2 vac 03/28/21 Recorded SARS-CoV-2 (COVID-19) mRNA BNT-162b2 vac 08/15/20 Given pneumococcal 23-valent vaccine 09/24/16 Given pneumococcal 23-valent vaccine 6 10/24/04 Given pneumococcal 13-valent vaccine 07/10/15 Given Zoster Vaccine Live 7 09/13/08 Given diphtheria-tetanus toxoids (DT) 10/29/03 Given 1Admin Note[facility] 2[facility] Note: [facility] 3Admin Note: [facility] [place] 4Result Comment: [07/10/2015] chelo rivera 5Admin Note: [...] Refills, Maintenance, 01/15/22 16:23:00 EDT, Tablet, [facility], Partial fill upon patient request [...] Maintenance,11/17/22 8:37:00 EDT, Route to Pharmacy Electronically, [facility] #[id number], Partial fill upon patient request if the [...] 13:08:00 EDT, Route to Pharmacy Electronically, [facility], 159, cm, 01/20/23 8:23:00 EDT, [...] Required Details, Route to Pharmacy Electronically, [facility], 159, cm, 03/11/23 9:45:00 EDT, Height, 81, kg, 0... Start Date: 05/17/23 Status: Ordered Nitrostat 0.3 mg sublingual tablet 1 tablet = 0.3 mg, Sublingual, Every 5 minutes, PRN as needed for chest pain, not to exceed 3 doses/15 min--if pain persists, seek medical attention, # 25 tablet, 0 Refills, Maintenance, 06/16/23 10:10:00 EST, Tablet, [facility] #[id number], Part... Start Date: 06/16/23 Status: Ordered omeprazole 20 mg oral delayed release tablet 1 tablet = 20 mg, By Mouth, 2 times a day, # 180 tablet, 1 Refills, Maintenance, 07/20/23 13:18:00 EST, EC Tablet, [facility], Partial fill upon patient request [...] Care Team Personnel Name: Saadia Abdalla Position: [facility] Onco RN Member Role: Primary Care Nurse Name: Janna Sibley MD Position: [facility] Physician - Primary Care Member Role: PCP Address: Address: [address] [place] [address] 3rd [place], [place] [address] Name: Aislinn Mccauley RN Position: [facility] RN Member Role: Primary Care Nurse Care Team Related Persons Name: AMIRA MURPHY Address: home [address] [place] [address] [place] Address: [facility] 0 Name: AMIRA MURPHY Address: home [address] [facility] [address] Name: AMIRA MURPHY Address: home [address] [place] [address] Name: TITO MURPHY Address: [address] [place] [address] [place] Name: TITO MURPHY Address: home [address] [place] [address] Name: TITO MURPHY Address: home [address] [place] [address]
--- OUTSIDE RECORDS SUMMARY | 2023-12-27 06:48 | XMS_ITS | Continuity of Care Document ---
Author Organization [facility] Address [address] [place] [address]- Care Team Providers Care Mender Hand Name Role Phone Janna Sibley MD Primary Care Physician ( [phone] Encounter [facility] Date(s): 05/25/23 - 06/24/23 [facility] [address] [place] [address]- Attending Physician: Freddie Mcgrath Admitting Physician: Freddie [...] virus vaccine, inactivated 5 04/26/09 Gi henri [id number] 12y+ bivalent booster vax 03/12/22 Recorded SARS-CoV-2 mRNA (xuvterk-ofbx-ixgng) vax 10/17/21 Recorded SARS-CoV-2 (COVID-19) mRNA BNT-162b2 vac 03/28/21 Recorded SARS-CoV-2 (COVID-19) mRNA BNT-162b2 vac 08/15/20 Given pneumococcal 23-valent vaccine 09/24/16 Given pneumococcal 23-valent vaccine 6 10/24/04 Given pneumococcal 13-valent vaccine 07/10/15 Given Zoster Vaccine Live 7 09/13/08 Given diphtheria-tetanus toxoids (DT) 10/29/03 Given 1Admin Note: [facility] 2Admin Note: [facility] [place] 3Admin Note: [facility] 4Result Comment: [07/10/2015] zache nicole 5Admin Note: [...] Refills, Maintenance, 01/15/22 16:23:00 EDT, Tablet, [facility], Partial fill upon patient request [...] Maintenance,11/17/22 8:37:00 EDT, Route to Pharmacy Electronically, [facility][id number], Partial fill upon patient request if the [...] Required Details, Route to Pharmacy Electronically, [facility], 159, cm, 03/11/23 9:45:00 EDT, Height, 81, kg, 0... Start Date: 05/17/23 Status: Ordered Nitrostat 0.3 mg sublingual tablet 1 tablet = 0.3 mg, Sublingual, Every 5 minutes, PRN as needed for chest pain, not to exceed 3 doses/15 min--if pain persists, seek medical attention, # 25 tablet, 0 Refills, Maintenance, 06/16/23 10:10:00 EST, Tablet, [facility][id number], Part... Start Date: 06/16/23 Status: Ordered omeprazole 20 mg oral delayed release tablet 1 tablet = 20 mg, By Mouth, 2 times a day, # 180 tablet, 1 Refills, Maintenance, 12/25/22 15:11:00 EDT, EC Tablet, [facility], Partial fill upon patient request [...] Primary Care Member Role: PCP Address: Address: [address] [place] [address] [address] [place], [place] [address] Name: Aislinn Mccauley RN Position: [facility] RN Member Role: Primary Care Nurse Care Team Related Persons Name: AMIRA MURPHY Address: home [address] [place] [address] Name: AMIRA MURPHY Address: home [address] [facility] [address] Name: AMIRA MURPHY Address: home [address] [place] [address] [place] Address: temporary 0 Name: TITO MURPHY Address: [address] [place] [address] [place] Name: TITO MURPHY Address: home [address] [place] [address] Name: TITO MURPHY Address: home [address] [place] [address]
--- OUTSIDE RECORDS SUMMARY | 2023-12-27 06:48 | XMS_ITS | Continuity of Care Document ---
Author Organization [facility] Address [address] [place] [address]- Care Team Providers Care Shrub Grower Name Role Phone Colt LANDIN, Jud Guzman Primary Care Physicia n Encounter [facility] Date(s): 12/19/20 - 12/26/20 [facility] [address] [place] [address]- Encounter Diagnosis Hypertension(Discharge Diagnosis) - 12/19/20 Mass present on one side of neck(Discharge Diagnosis) - 12/19/20 Attending Physician: Colt LANDIN, Jud Guzman Referring Physician: Guy Wolff MD Allergies, Adverse [...] [facility] 4Result Comment: [07/10/2015] joseph [...] 15:46:00 EDT, Route to Pharmacy Electronically, [facility], Partial fill upon patient request [...] 1 Refills, Maintenance, 10/30/20 13:21:00 EDT, Tablet, [facility][id number], Partial fill upon patient request if the [...] Status Clinical Service Informant Hypertension Discharge Diagnosis 12/19/20 Mass present on one side of neck Discharge Diagnosis 12/19/20 Vital Signs Most recent to oldest [Reference Range]: 1 2 Height 159.0 cm (12/19/20 12:03 PM) 159.0 cm (12/19/20 11:24 AM) Weight 84 kg (12/19/20 11:24 AM) Oxygen Saturation [94-100 %] 97 % (12/19/20 11:24 AM) Pulse Rate [55-90 bpm] 63 bpm (12/19/20 11:24 AM) Body Mass Index [18.5-24.99] 33.23 *>HHI* (12/19/20 11:24 AM) Blood Pressure [90-138/55-84 mm Hg] 138/ 64mm Hg (12/19/20 12:03 PM) 147/80mm Hg *H* (12/19/20 11:24 AM) Mode of Delivery (Oxygen) Room air (12/19/20 11:24 AM) Blood pressure sites Arm, left (12/19/20 11:24 AM) Weight Obtained Via Standing scale (12/19/20 11:24 AM) Social History Social History Type Response Smoking Status Never smoker entered on: 05/23/14 Sex Female
--- OUTSIDE RECORDS SUMMARY | 2023-12-27 06:48 | XMS_ITS | Continuity of Care Document ---
Author Organization [facility] Address [address] [place] [address]- Care Team Providers Care Electrical Appliance Repairer Name Role Phone Colt LANDIN, Jud Guzman Primary Care Physicia n Encounter [facility] Date(s): 05/21/20 - 06/20/20 [facility] [address] [place] [address]- Allergies, Adverse Reactions, Alerts Substance Reaction Severity [...] [facility] 2Admin Note: Joseph Phelan [place] 3Admin Note: Joseph Rivera [facility] [place] 4Result Comment: [07/10/2015] joseph rivera 5Admin Note: [...] 13:01:00 EST, Route to Pharmacy Electronically, [facility], Partial fill upon patient request, 160, cm, 04/15/20 9:50:00 ED... Start Date: 05/14/20 Status: Ordered lamotrigine 100 mg oral tablet 100 mg, 1, tablet, By Mouth, 2 times a day, Take with 25mg tablet for total 125mg twice daily, # 180 tablet, Refills 0, Tot. Refills 0, Maintenance, 05/14/20 13:01:00 EST, Route to Pharmacy Electronically, [facility], Partial fill u... Start Date: [...]
--- OUTSIDE RECORDS SUMMARY | 2023-12-27 06:48 | XMS_ITS | Continuity of Care Document ---
Author Organization [facility] Address Unknown Care Team Providers Care Tie Bucker Name Role Phone Colt LANDIN, Jud Honge Primary Care Physicia n Encounter [facility] Date(s): 01/10/21 - 05/10/21 [facility] Attending Physician: Delores Zamora MD Admitting Physician: [...] diphtheria-tetanus toxoids (DT) 5/10/04 Given 1Admin Note: [facility] 2Admin Note: Chelo Phelan [place] 3Admin Note: Chelo Rivera [facility] pallavi ferrell 4Result Comment: [07/10/2015] chelo [...]
--- OUTSIDE RECORDS SUMMARY | 2023-12-27 06:48 | XMS_ITS | Continuity of Care Document ---
Author Organization [facility] Address [address] [place] [address]- Care Team Providers Care Toll Settlement Clerk Name Role Phone Colt LANDIN, Jud Guzman Primary Care Physicia n Encounter [facility] Date(s): 07/09/20 - 08/08/20 [facility] [address] [place] [address]- Allergies, Adverse Reactions, Alerts Substance Reaction Severity [...] [facility] 2Admin Note: Joseph Phelan [place] 3Admin Note: Joseph Rivera [facility] [place] 4Result Comment: [07/10/2015] joseph rivera 5Admin [...] Maintenance,05/14/20 13:01:00 EST, Route to Pharmacy Electronically, [facility], Partial fill upon patient request, 160, cm, 04/15/20 9:50:00 ED... Start Date: 05/14/20 Status: Ordered lamotrigine 100 mg oral tablet 100 mg, 1, tablet, By Mouth, 2 times a day, Take with 25mg tablet for total 125mg twice daily, # 180 tablet, Refills 0, Tot. Refills 0, Maintenance, 05/14/20 13:01:00 EST, Route to Pharmacy Electronically, [facility], Partial fill u... Start Date: [...]
--- OUTSIDE RECORDS SUMMARY | 2023-12-27 06:48 | XMS_ITS | Continuity of Care Document ---
Author Organization [facility] Address [address] [place] [address]- Care Team Providers Care Production Corrugator Name Role Phone Colt LANDIN, Jud Guzman Primary Care Physicia n Encounter [facility] Date(s): 04/19/20 - 12/06/20 [facility] [address] [place] [address]- Discharge Disposition: A-D/C Home Attending Physician: Annita Go MD Admitting Physician: Annita Go MD Referring Physician: Colt LANDIN, Jud Guzman [...] [facility] 2Admin Note: Joseph RIVERA [facility] 3Admin Note: Joseph Rivera [facility] 4Result Comment: [07/10/2015] joseph rivera 5Admin Note: [...] prescriptionis for a schedule II opioid drug., 159 cm, ... Start Date: 10/15/20 Stop Date: 01/13/21 Status: Ordered PreserVision AREDS 2 oral capsule By Mouth, Daily, 0 Refills, Maintenance, 04/15/20 10:06:00 EDT Start Date: 04/15/20 Status: Ordered sertraline 25 mg oral tablet 1 tablet = 25 mg, By Mouth, Daily, # 30 tablet, 1 Refills, Maintenance, 10/30/20 13:21:00 EDT, Tablet, [facility][id number], Partial fill upon patient request if the [...] [Reference Range]: 1 2 Height 159.0 cm (09/04/20 2:05 PM) 159.0 cm (06/05/20 2:56 PM) Weight 83.0 kg (09/04/20 2:05 PM) 79.5 kg (06/05/20 2:56 PM) Oxygen Saturation [94-100 %] 100 % (09/04/20 2:05 PM) Pulse Rate [55-90 bpm] 65 bpm (09/04/20 2:05 PM) 62 bpm (06/05/20 2:56 PM) Body Mass Index [18.5-24.99] 32.83 *>HHI* (09/04/20 2:05 PM) 31.45 *>HHI* (06/05/20 2:56 PM) Blood Pressure [90-138/55-84 mm Hg] 156/ 99mm Hg *H* (09/04/20 2:05 PM) 173/54mm Hg *H* (06/05/20 2:56 PM) Temperature [96.8-100.4 DegF] 99.7 DegF (09/04/20 2:05 PM) 97.9 DegF (06/05/20 2:56 PM) Blood pressure sites Arm, right (09/04/20 2:05 PM) Arm, right (06/05/20 2:56 PM) Temperature Route Temporal (09/04/20 2:05 PM) Oral (06/05/20 2:56 PM) Dry Weight 83.0 kg (09/04/20 2:05 PM) 79.5 kg (06/05/20 2:56 PM) Weight Obtained Via Standing scale (09/04/20 2:05 PM) Standing scale (06/05/20 2:56 PM) Dry Weight Obtained Via Standing scale (09/04/20 2:05 PM) Standing scale (06/05/20 2:56 PM) Social History Social History Type Response Smoking Status Never smoker entered on: 05/23/14 Sex Female
--- OUTSIDE RECORDS SUMMARY | 2023-12-27 06:48 | XMS_ITS | Continuity of Care Document ---
Author Organization [facility] Address [address] [place] [address]- Care Team Providers Care Child Support Specialist Name Role Phone Colt LANDIN, Jud Guzman Primary Care Physicia n [place] [facility] [place](s): 10/15/20 - 11/14/20 [facility] [address] [place] [address]- Allergies, Adverse Reactions, Alerts Substance Reaction Severity [...] diphtheria-tetanus toxoids (DT) 10/29/03 Given 1Admin Note: [facility] 2Admin Note: Joseph Phelan [place] 3Admin Note: Joseph Rivera [facility] [place] 4Result Comment: [07/10/2015] joseph rivera 5Admin Note: [...] 1 Refills, Maintenance, 10/30/20 13:21:00 EDT, Tablet, [facility][id number], Partial fill upon patient request if the [...]
--- OUTSIDE RECORDS SUMMARY | 2023-12-27 06:48 | XMS_ITS | Continuity of Care Document ---
Author Organization [facility] Address [address] [place] [address]- Care Team Providers Care Custom Decorating Consultant Name Role Phone Toñito COLE, Janna Primary Care Physician ( [phone] Encounter [facility] Date(s): 05/17/23 - 06/16/23 [facility] [address] [place] [address]- [place] Allergies, Adverse Reactions, Alerts Substance Reaction [...] virus vaccine, inactivated 5 04/26/09 Gi henri [id number] 12y+ bivalent booster vax 03/12/22 Recorded SARS-CoV-2 mRNA (vsgwgfy-pmmp-cegnu) vax 10/17/21 Recorded SARS-CoV-2 (COVID-19) mRNA BNT-162b2 vac 03/28/21 Recorded SARS-CoV-2 (COVID-19) mRNA BNT-162b2 vac 08/15/20 Given pneumococcal 23-valent vaccine 09/24/16 Given pneumococcal 23-valent vaccine 6 10/24/04 Given pneumococcal 13-valent vaccine 07/10/15 Given Zoster Vaccine Live 7 09/13/08 Given diphtheria-tetanus toxoids (DT) 10/29/03 Given 1Admin Note: [facility] 2Admin Note: Joseph SLIM Phelan [place] 3Admin Note: Joseph Rivera [facility] pallavi de 4Result Comment: [07/10/2015] zachcece rivera 5Admin Note: [...] Maintenance,11/17/22 8:37:00 EDT, Route to Pharmacy Electronically, [facility][id number], Partial fill upon patient request if the [...] 0 Refills, Maintenance, 06/16/23 10:10:00 EST, Tablet, [facility] #[id number], Part... Start Date: 06/16/23 Status: Ordered omeprazole [...] Care Team Personnel Name: Saadia Abdalla Position: [facility] Onco RN Member Role: Primary Care Nurse Name: Janna Sibley MD Position: [facility] Physician - Primary Care Member Role: PCP Address: Address: [address] [place] [address] [address] [place] [address]- Name: Aislinn Mccauley RN Position: [facility] RN Member Role: Primary Care Nurse Care Team Related Persons Name: AMIRA MURPHY Address: home [address] [place], [place] Address: temporary 0 Name: AMIRA MURPHY Address: home [address] [place] [address] Name: AMIRA MURPHY Address: home [address] [facility] A[address] Name: TITO MURPHY Address: home [address] [place] [address] [place] Name: TITO MURPHY Address: home [address] [place] [address] Name: TITO MURPHY Address: home [address] [place] [address]
--- OUTSIDE RECORDS SUMMARY | 2023-12-27 06:48 | XMS_ITS | Continuity of Care Document ---
Author Organization [facility] Adult Address [address] [place] [address]- Care Team Providers Care Cafe Assistant Name Role Phone Toñito COLE, [facility] Primary Care Physician ( [phone] Encounter [facility] Date(s): 11/01/23 - 12/01/[address] [address]- Allergies, Adverse Reactions, Alerts Substance Reaction Severity [...] vaccine, inactivated 6 04/26/09 Gi henri SARS-CoV-2(COVID-19)mRNA-LNP vac([id number]) 04/10/23 Recorded [id number]-TpB-1lTHP 12y+ bivalent booster vax 03/12/22 Recorded SARS-CoV-2 mRNA (pmexoaf-ozpx-lpojl) vax 10/17/21 Recorded SARS-CoV-2 (COVID-19) mRNA BNT-162b2 vac 03/28/21 Recorded SARS-CoV-2 (COVID-19) mRNA BNT-162b2 vac 08/15/20 Given SARS-CoV-2 (COVID-19) mRNA BNT-162b2 vac 07/25/20 Recorded pneumococcal 23-valent vaccine 09/24/16 Given pneumococcal 23-valent vaccine 7 10/24/04 Given pneumococcal 13-valent vaccine 07/10/15 Given Zoster Vaccine Live 8 09/13/08 Given diphtheria-tetanus toxoids (DT) 10/29/03 Given 1Result Comment: [facility] [id number] 2Admin Note: annmarie high dose 3Admin Note: [facility] 4Admin Note: [facility] 5Result Comment: [07/10/2015] zache aid 6Admin [...] 13:21:00 EDT, Aerosol, Route to Pharmacy Electronically, [id number], [facility]... Start Date: 10/13/23 [...] 13:21:00 EDT, Powder, Route to Pharmacy Electronically, [id number], [facility]... Start Date: 10/13/23 Stop [...] 0 Refills, Maintenance, 06/16/23 10:10:00 EST, Tablet, [id number], Part... Start Date: 06/16/23 Status: Ordered omeprazole [...] Personnel Name: Saadia Abdalla Position: [facility] Onco RN Member Role: Primary Care Nurse Name: Janna Sibley MD Position: [facility] Physician - Primary Care Member Role: PCP Address: Address: [address] [place] [id number] Name: Aislinn Mccauley RN Position: [facility] RN Member Role: Primary Care Nurse Care Team Related Persons Name: AMIRA MURPHY Address: home [address] [place] [address] Name: AMIRA MURPHY Address: [address] [place] [address] Address: [facility] 0 Name: AMIRA MURPHY Address: home [address] [facility] A709 [id number] Name: TITO MURPHY Address: home [address] [place] [address] Name: TITO MURPHY Address: [address] [place] [address] Name: TITO MURPHY Address: home [address] [place] [address]
--- OUTSIDE RECORDS SUMMARY | 2023-12-27 06:48 | XMS_ITS | Continuity of Care Document ---
Author Organization [facility] Adult Address [address] [place] [address]- Care Team Providers Care Religious Education Director Name Role Phone Toñito COLE, [place]reckcent[place]juan Primary Care Physician Encounter [facility] Date(s): 10/28/23 - 11/27/23 [facility] Adult [address] [place] [address]- Allergies, Adverse Reactions, Alerts Substance Reaction Severity [...] vaccine, inactivated 6 04/26/09 Gi henri SARS-CoV-2(COVID-19)mRNA-LNP vac([id number]) 04/10/23 Recorded VMVC-AiU-2nRSK 12y+ bivalent booster vax 03/12/22 Recorded SARS-CoV-2 mRNA (oitirkk-mwof-hvxuh) vax 10/17/21 Recorded SARS-CoV-2 (COVID-19) mRNA BNT-162b2 vac 03/28/21 Recorded SARS-CoV-2 (COVID-19) mRNA BNT-162b2 vac 08/15/20 Given SARS-CoV-2 (COVID-19) mRNA BNT-162b2 vac 07/25/20 Recorded pneumococcal 23-valent vaccine 09/24/16 Given pneumococcal 23-valent vaccine 7 10/24/04 Given pneumococcal 13-valent vaccine 07/10/15 Given Zoster Vaccine Live 8 09/13/08 Given diphtheria-tetanus toxoids (DT) 10/29/03 Given 1Result Comment: [facility] [id number] 2Admin Note: [facility] 3Admin Note: [facility] 4Admin Note: [facility] 5Result Comment: [07/10/2015] zache aid 6Admin [...] 13:21:00 EDT, Aerosol, Route to Pharmacy Electronically, [id number], [facility]... Start Date: 10/13/23 [...] 13:21:00 EDT, Powder, Route to Pharmacy Electronically, [id number], [facility]... Start Date: 10/13/23 Stop [...] 0 Refills, Maintenance, 06/16/23 10:10:00 EST, Tablet, [facility] #[id number], Part... Start Date: 06/16/23 Status: Ordered omeprazole [...] Care Team Personnel Name: Saadia Abdalla Position: [facility] Onco RN Member Role: Primary Care Nurse Name: Janna Sibley MD Position: [facility] Physician - Primary Care Member Role: PCP Address: Address: [address] [place] [id number] Name: Aislinn Mccauley RN Position: [facility] RN Member Role: Primary Care Nurse Care Team Related Persons Name: AMIRA MURPHY Address: [address] [address] [place], [place] Address: [facility] 0 Name: AMIRA MURPHY Address: [address] [address] [place], [place] Name: AMIRA MURPHY Address: home [address] [facility] A[address] Name: TITO MURPHY Address: home [address] [place] [address] [place] Name: TITO MURPHY Address: [address] [address] [place], [place] Name: TITO MURPHY Address: home [address] [place] [address]
--- OUTSIDE RECORDS SUMMARY | 2023-12-27 06:48 | XMS_ITS | Continuity of Care Document ---
Author Organization [facility] Adult Address [address] [place] [address]- Care Team Providers Care Commissary Clerk Name Role Phone Toñito COLE, [facility] Primary Care Physician En[place] [facility] Date(s): 02/24/23 - 03/26/23 [facility] Adult [address] [place] [address]- Allergies, Adverse Reactions, Alerts Substance Reaction Severity [...] virus vaccine, inactivated 5 04/26/09 Gi henri [id number]-KdM-[id number] 12y+ bivalent booster vax 03/12/22 Recorded SARS-CoV-2 mRNA (wnqfbus-bqoz-qyxic) vax 10/17/21 Recorded SARS-CoV-2 (COVID-19) mRNA BNT-162b2 vac 03/28/21 Recorded SARS-CoV-2 (COVID-19) mRNA BNT-162b2 vac 08/15/20 Given pneumococcal 23-valent vaccine 09/24/16 Given pneumococcal 23-valent vaccine 6 10/24/04 Given pneumococcal 13-valent vaccine 07/10/15 Given Zoster Vaccine Live 7 09/13/08 Given diphtheria-tetanus toxoids (DT) 10/29/03 Given 1Admin Note: [facility] 2Admin Note: Joseph NICOLE Phelan [place] 3Admin Note: Joseph León [facility] pallavi ut 4Result Comment: [07/10/2015] joseph nicole 5Admin Note: [...] 03/11/23 9:55:00 EDT, Route to Pharmacy Electronically, [facility][id number], Partial fill upon patient request if the prescription is for a schedule II opi... Start Date: 03/11/23 Status: Ordered gabapentin 300 mg oral capsule 300 mg, 1, capsule, By Mouth, 3 times a day, # 270 capsule, Refills 3, Tot. Refills 3, Maintenance,11/17/22 8:37:00 EDT, Route to Pharmacy Electronically, [facility] #[id number], Partial fill upon patient request if the [...] 13:08:00 EDT, Route to Pharmacy Electronically, [facility], 159, cm, 01/20/23 8:23:00 EDT, Height, 81, kg, 12/10/21 9:01:00 EDT, Dry... Start Date: 02/12/23 Status: Ordered lamotrigine 25 mg oral tablet 50 mg, 2, tablet, By Mouth, 2 times a day, dose increase, # 360 tablet, Refills 2, Tot. Refills 2, Maintenance, 02/12/23 13:09:00 EDT, Route to Pharmacy Electronically, [facility],Partial fill upon patient request if the prescripti... Start Date: 02/12/23 Status: Ordered lisinopril 5 mg oral tablet 5 mg, 1, tablet, By Mouth, Daily, # 30 tablet, Refills 2, Tot. Refills 2, Maintenance, 03/11/23 10:00:00 EDT, [id number], Partial fill upon patient request if the prescription is for a schedule II opi... Start Date: 03/11/23 Status: Ordered omeprazole 20 mg oral delayed release tablet 1 tablet = 20 mg, By Mouth, 2 times a day, # 180 tablet, 1 Refills, Maintenance, 12/25/22 15:11:00 EDT, EC Tablet, [facility], Partial fill upon patient request [...] Care Team Personnel Name: Saadia Abdalla Position: [facility] Onco RN Member Role: Primary Care Nurse Name: Janna Sibley MD Position: [facility] Physician - Primary Care Member Role: PCP Address: Address: [address] [place] [address] [address] [place], [place] [address] Name: Aislinn Mccauley RN Position: [facility] RN Member Role: Primary Care Nurse Care Team Related Persons Name: AMIRA MURPHY Address: home [address] [facility] [id number] Name: AMIRA MURPHY Address: home [address] [place], [place] Address: temporary 0 Name: AMIRA MURPHY Address: home [address] [place], [place] Name: TITO MURPHY Address: [address] [place] [address] [place] Name: TITO MURPHY Address: home [address] [place], [place] Name: TITO MURPHY Address: home [address] [place] [address]
--- OUTSIDE RECORDS SUMMARY | 2023-12-27 06:48 | XMS_ITS | Continuity of Care Document ---
Author Organization [facility] Pulmonary M edicine Address [address] [address]- Care Team Providers Care Lens Inserter Name Role Phone Toñito COLE, [facility] Primary Care Physician ( [phone] Encounter [facility] Date(s): 08/30/23 - 09/29/23 [facility] Pul[facility] Medicine [address] [address] Allergies, Adverse Reactions, Alerts Substance [...] virus vaccine, inactivated 5 04/26/09 Gi henri GIIA-YxJ-5nBPQ 12y+ bivalent booster vax 03/12/22 Recorded SARS-CoV-2 mRNA (pifbejj-xgdv-btvug) vax 10/17/21 Recorded SARS-CoV-2 (COVID-19) mRNA BNT-162b2 vac 03/28/21 Recorded SARS-CoV-2 (COVID-19) mRNA BNT-162b2 vac 08/15/20 Given pneumococcal 23-valent vaccine 09/24/16 Given pneumococcal 23-valent vaccine 6 10/24/04 Given pneumococcal 13-valent vaccine 07/10/15 Given Zoster Vaccine Live 7 09/13/08 Given diphtheria-tetanus toxoids (DT) 10/29/03 Given 1Admin Note: [facility] 2Admin Note: [facility] 3Admin Note: [facility] pallavi [place] 4Result Comment: [07/10/2015] [facility] 5Admin Note: [...] Maintenance, 09/17/23 16:29:00 EDT, [id number], Partial fill upon viral... Start Date: 09/17/23 [...] 13:08:00 EDT, Route to Pharmacy Electronically, [facility], 159, cm, 01/20/23 8:23:00 EDT, Height, 81, kg, 12/10/21 9:01:00 EDT, Dry... Start Date: 02/12/23 Status: Ordered lamotrigine 25 mg oral tablet 50 mg, 2, tablet, By Mouth, 2 times a day, dose increase, # 360 tablet, Refills 2, Tot. Refills 2, Maintenance, 02/12/23 13:09:00 EDT, Route to Pharmacy Electronically, [facility],Partial fill upon patient request if the prescripti... Start Date: 02/12/23 Status: Ordered lisinopril 10 mg oral tablet See Instructions, TAKE 1 TABLET DAILY, # 30 tablet, Refills 11, Maintenance, 05/17/23 8:21:00 EST, Instructions Replace Required Details, Route to Pharmacy Electronically, [facility], 159, cm, 03/11/23 9:45:00 EDT, Height, 81, kg, 0... Start Date: 05/17/23 Status: Ordered Nitrostat 0.3 mg sublingual tablet 1 tablet = 0.3 mg, Sublingual, Every 5 minutes, PRN as needed for chest pain, not to exceed 3 doses/15 min--if pain persists, seek medical attention, # 25 tablet, 0 Refills, Maintenance, 06/16/23 10:10:00 EST, Tablet, [facility] #[id number], Part... Start Date: 06/16/23 Status: Ordered omeprazole [...] Team Personnel Name: Saadia Abdalla Position: [facility] Onco RN Member Role: Primary Care Nurse Name: Janna Sibley MD Position: [facility] Physician - Primary Care Member Role: PCP Address: Address: [address] [place] [address] [address] [place], [place] [address] Name: Aislinn Mccauley RN Position: [facility] RN Member Role: Primary Care Nurse Care Team Related Persons Name: AMIRA MURPHY Address: home [address] [place] [id number] Name: AMIRA MURPHY Address: home [address] [place] [address] Name: AMIRA MURPHY Address: [place] [address] [place], [place] Address: temporary 0 Name: TITO MURPHY Address: home [address] [place] [address] [place] Name: TITO MURPHY Address: home [address] [place] [address] Name: TITO MURPHY Address: home [address] [place] [address]
--- OUTSIDE RECORDS SUMMARY | 2023-12-27 06:48 | XMS_ITS | Continuity of Care Document ---
Author Organization [facility] Adult Address [address] [place] [address]- Care Team Providers Care Drag Out Man Name Role Phone Colt LANDIN, Jud Guzman Primary Care Physicia n Encounter [facility] Date(s): 08/25/21 - 09/24/21 [facility] Adult [address] [place] [address]- Allergies, Adverse Reactions, Alerts Substance Reaction Severity [...] joseph rivera 5Admin Note: Pallavi 6Admin Note: [place] 7Admin Note: [facility]uent lot [id number] Exp 08/28 [...] 08/21/21 13:28:00 EST, Route to Pharmacy Electronically, [facility] #[id number], Partial fill upon patient request if the [...]
--- OUTSIDE RECORDS SUMMARY | 2023-12-27 06:48 | XMS_ITS | Continuity of Care Document ---
Author Organization [facility] Neurology Address [address] [facility], [address]r d Floor, [address] [place] [address]- Care Team Providers Care Med Asst Name Role Phone Colt LANDIN, Jud Guzman Primary Care Physicia n Encounter [facility] [place] Date(s): 05/14/20 - 06/13/20 [facility] [address] [place], [address]rd Floor, [address] [place] [address]- Allergies, Adverse Reactions, Alerts Substance Reaction Severity [...] Joseph Phelan [place] 3Admin Note: Joseph Rivera [facility] marietania ut 4Result Comment: [07/10/2015] joseph rivera 5Admin Note: [place] 6Admin Note: [place] 7Admin Note: diluent lot [id number] Exp 3/10 [...] Maintenance,05/14/20 13:01:00 EST, Route to Pharmacy Electronically, [facility], Partial fill upon patient request, 160, cm, 04/15/20 9:50:00 ED... Start Date: 05/14/20 Status: Ordered lamotrigine 100 mg oral tablet 100 mg, 1, tablet, By Mouth, 2 times a day, Take with 25mg tablet for total 125mg twice daily, # 180 tablet, Refills 0, Tot. Refills 0, Maintenance, 05/14/20 13:01:00 EST, Route to Pharmacy Electronically, [facility], Partial fill u... Start Date: [...]
--- OUTSIDE RECORDS SUMMARY | 2023-12-27 06:48 | XMS_ITS | Continuity of Care Document ---
Author Organization [facility] Address [address] [place] [address]- Care Team Providers Care Safety And Skill Based Pay Manager Name Role Phone Toñito COLE, [facility] Primary Care Physician Encounter [facility] [place] Date(s): 04/08/22 - 05/08/22 [facility] [address] [place] [address]- Attending Physician: Freddie Mcgrath Admitting Physician: Freddie [...] virus vaccine, inactivated 5 04/26/09 Gi henri QVPZ-BkZ-7yGVW 12y+ bivalent booster vax 03/12/22 Recorded SARS-CoV-2 mRNA (ctplkez-axpi-bpfpl) vax 10/17/21 Recorded SARS-CoV-2 (COVID-19) mRNA BNT-162b2 vac 03/28/21 Recorded pneumococcal 23-valent vaccine 09/24/16 Given pneumococcal 23-valent vaccine 6 10/24/04 Given pneumococcal 13-valent vaccine 07/10/15 Given Zoster Vaccine Live 7 09/13/08 Given diphtheria-tetanus toxoids (DT) 10/29/03 Given 1Admin Note: [facility] 2Admin Note: Joseph Phelan [place] 3Admin Note: Joseph Romelia [facility] pallavi or 4Result Comment: [07/10/2015] zachcece rivera 5Admin Note: [...] Care Team Personnel Name: Saadia Abdalla Position: [facility] Onco RN Member Role: Primary Care Nurse Name: Janna Sibley MD Position: [facility] Primary Care Physician Member Role: PCP Address: Address: [address] [place] [id number] Name: Homar HUA, Nasrin Position: [facility] AMB Nurse Member Role: Primary Care Nurse Name: Aislinn Mccauley RN Position: [facility] RN Member Role: Primary Care Nurse Care Team Related Persons Name: AMIRA MURPHY Address: [address] [address] Address: [facility] 0 Name: AMIRA MURPHY Address: [place] [phone] Name: AMIRA MURHPY Address: [place] [address] Name: TITO MURPHY Address: [address] [address] Name: TITO MURPHY Address: [address] [address] Name: TITO MURPHY Address: [address] [address]
--- OUTSIDE RECORDS SUMMARY | 2023-12-27 06:48 | XMS_ITS | Continuity of Care Document ---
Author Organization [facility] Address [address] [facility] [address], [address] Floor, [address] [place] [address]- Care Team Providers Care Value Stream Manager Name Role Phone Janna Sibley MD Primary Care Physician ( [phone] Encounter [place] Date(s): 10/01/22 - 10/31/22 [facility] [address], [address] Floor, [address] [place] [address]- Attending Physician: Freddie Mcgrath Admitting Physician: AdmFreddie [...] virus vaccine, inactivated 5 04/26/09 Gi henri VHNM-[id number]-6gIAT 12y+ bivalent booster vax 03/12/22 Recorded SARS-CoV-2 mRNA (ukbkjmk-qtmm-tpvcy) vax 10/17/21 Recorded SARS-CoV-2 (COVID-19) mRNA BNT-162b2 vac 03/28/21 Recorded pneumococcal 23-valent vaccine 09/24/16 Given pneumococcal 23-valent vaccine 6 10/24/04 Given pneumococcal 13-valent vaccine 07/10/15 Given Zoster Vaccine Live 7 09/13/08 Given diphtheria-tetanus toxoids (DT) 10/29/03 Given 1Admin Note: [facility] 2[facility] Note: [facility] 3Admin Note: [facility] 4Result Comment: [07/10/2015] zache nicole 5Admin [...] 10/23/22 13:21:00 EDT, Route to Pharmacy Electronically, [facility][id number], Partial fill upon patient request if the [...] Maintenance,11/17/22 8:37:00 EDT, Route to Pharmacy Electronically, [facility][id number], Partial fill upon patient request if the [...] 11/17/22 8:37:00 EDT, Route to Pharmacy Electronically, [facility][id number], 159, cm, 10/01/22 8:32:00 EDT, Height, 81, kg, 12/10/21 9:01:00 EDT, Dry Weight Start Date: 11/17/22 Status: Ordered lamotrigine 100 mg oral tablet 1, tablet, By Mouth, 2 times a day, for 90 days, # 180 tablet, Refills 2, Tot. Refills 2, Hard Stop11/17/22 8:37:00 EDT, 02/20/22 8:37:00 EDT, Route to Pharmacy Electronically, [facility], 159, cm, 02/12/22 13:41:00 EDT, Height, 81... Start Date: 02/20/22 Stop Date: 11/17/22 Status: Ordered lamotrigine 25 mg oral tablet 50 mg, 2, tablet, By Mouth, 2 times a day, dose increase, # 360 tablet, Refills 3, Tot. Refills 3, Maintenance, 11/17/22 8:38:00 EDT, Route to Pharmacy Electronically, [id number], Partial fill upon patient request if the prescription... Start Date: 11/17/22 Status: Ordered lamotrigine 25 mg oral tablet 50 mg, 2, tablet, By Mouth, 2 times a day, for 90 days, dose increase, # 360 tablet, Refills 2, Tot. Refills 2, Hard Stop 11/17/22 8:38:00 EDT, 02/20/22 8:38:00 EDT, [facility], Partial fill upon pa... Start [...] Care Team Personnel Name: Saadia Abdalla Position: [facility] Onco RN Member Role: Primary Care Nurse Name: Janna Sibley MD Position: [facility] Primary Care Physician Member Role: PCP Address: Address: [address] [place] [address] [address] [place], [place] [address] Name: Nasrin Graf RN Position: [facility] AMB Nurse Member Role: Primary Care Nurse Name: Aislinn Mccauley RN Position: [facility] RN Member Role: Primary Care Nurse Care Team Related Persons Name: AMIRA MURPHY Address: home [address] [place] [address] Name: AMIRA MURPHY Address: home [address] [facility] A[address] Name: AMIRA MURPHY Address: [place] [address] [place] [address] [place] Address: temporary 0 Name: TITO MURPHY Address: home [address] [place] [address] Name: TITO MURPHY Address: [place] [address] [place] [address] Name: TITO MURPHY Address: [address] [address]
--- OUTSIDE RECORDS SUMMARY | 2023-12-27 06:48 | XMS_ITS | Continuity of Care Document ---
Author Organization [facility] Address [address] [facility], [address]r d Floor, [address] [place] [address]- Care Team Providers Care Overcaster Name Role Phone Colt LANDIN, Jud Guzman Primary Care Physicia n [place] [facility](s): 05/14/20 - 06/13/20 [facility] [address] [place], [address]rd Floor, [address] [place] [address]- Allergies, Adverse Reactions, Alerts Substance Reaction Severity [...] Joseph Phelan [place] 3Admin Note: Joseph [facility] [place] 4Result Comment: [07/10/2015] joseph rivera [...] Maintenance,05/14/20 13:01:00 EST, Route to Pharmacy Electronically, [facility], Partial fill upon patient request, 160, cm, 04/15/20 9:50:00 ED... Start Date: 05/14/20 Status: Ordered lamotrigine 100 mg oral tablet 100 mg, 1, tablet, By Mouth, 2 times a day, Take with 25mg tablet for total 125mg twice daily, # 180 tablet, Refills 0, Tot. Refills 0, Maintenance, 05/14/20 13:01:00 EST, Route to Pharmacy Electronically, [facility], Partial fill u... Start Date: [...]
--- OUTSIDE RECORDS SUMMARY | 2023-12-27 06:49 | XMS_ITS | Continuity of Care Document ---
Author Organization [facility] Address [address] [place] [address]- Care Team Providers Care Sagger Preparer Name Role Phone Colt LANDIN, Jud Guzman Primary Care Physicia n Encounter [facility] [place] Date(s): 10/30/20 - 11/06/20 [facility] [address] [place] [address]- Encounter Diagnosis Anxiety disorder(Discharge Diagnosis) - 10/30/20 Attending Physician: Colt LANDIN, Jud Guzman Referring [...] Joseph Phelan MA 3Admin Note: Joseph León [facility] 4Result Comment: [07/10/2015] joseph nicole 5Admin Note: [place] 6Admin Note: Tapan [...] 1 Refills, Maintenance, 10/30/20 13:21:00 EDT, Tablet, [facility][id number], Partial fill upon patient request if the [...] Dates Health Status Cl inical Service Informant Anxiety disorder Discharge Diagnosis 10/30/20 Vital Signs Most recent to oldest [Reference Range]: 1 Height 159.0 cm (10/30/20 12:49 PM) Social History Social History Type Response Smoking Status Never smoker entered on: 05/23/14 Sex Female
--- OUTSIDE RECORDS SUMMARY | 2023-12-27 06:49 | XMS_ITS | Continuity of Care Document ---
Author Organization [facility] Address [address] [facility], 3r d Floor, [address] [place] [address]- Care Team Providers Care Flying Squad Worker Name Role Phone Janna Sibley MD Primary Care Physician Encounter [facility] [place] Date(s): 02/20/22 - 03/22/22 [facility] [address] [place], 3rd Floor, [address] [place] [address]- Attending Physician: Freddie Mcgrath Admitting Physician: Freddie [...] Joseph Phelan MA 3Admin Note: Joseph Rivera [facility] pallavi ferrell 4Result Comment: [07/10/2015] joseph rivera 5Admin Note: Pallavi 6Admin Note: [place] 7Admin Note: diluent lot [id number] Exp 08/28 [...] Fibromyalgia Confirmed Active 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
--- OUTSIDE RECORDS SUMMARY | 2023-12-27 06:49 | XMS_ITS | Continuity of Care Document ---
Author Organization [facility] Adult Address [address] [place] [address]- Care Team Providers Care Telephone Assembler Name Role Phone Colt LANDIN, Jud Guzman Primary Care Physicia n [place] [facility] [place]/21/21 - 04/28/[address] [address]- Encounter Diagnosis Hypertension(Discharge Diagnosis) - 04/21/21 Obstructive sleep apnea(Discharge Diagnosis) - 04/21/21 Abnormal ECG(Discharge Diagnosis) - 04/21/21 Attending Physician: Guy Wolff MD Allergies, Adverse [...] high dose 2Admin Note: Joseph NICOLE Phelan [place] 3Admin Note: Joseph León [facility] pallavi [place] 4Result Comment: [07/10/2015] joseph nicole 5Admin Note: [...] Status Clinical Service Informant Hypertension Discharge Diagnosis 04/21/21 Obstructive sleep apnea Discharge Diagnosis 04/21/21 Abnormal ECG Discharge Diagnosis 04/21/21 Vital Signs Most recent to oldest [Reference Range]: 1 2 3 Height 159.0 cm (04/21/21 4:52 PM) 159.0 cm (04/21/21 4:22 PM) 159.0 cm (04/21/21 4:11 PM) Weight 87.6 kg (04/21/21 4:11 PM) Oxygen Saturation [94-100 %] 98 % (04/21/21 4:11 PM) Pulse Rate [55-90 bpm] 63 bpm (04/21/21 4:11 PM) Body Mass Index [18.5-24.99] 34.65 *>HHI* (04/21/21 4:11 PM) Blood Pressure [90-138/55-84 mm Hg] 122/56mm Hg (04/21/21 4:52 PM) 146/70mm Hg *H* (04/21/21 4:22 PM) 156/63mm Hg *H* (04/21/21 4:11 PM) Mode of Delivery (Oxygen) Room air (04/21/21 4:11 PM) Blood pressure sites Arm, left (04/21/21 4:52 PM) Arm, left (04/21/21 4:22 PM) Arm, left (04/21/21 4:11 PM) Weight Obtained Via Standing scale (04/21/21 4:11 PM) Social History Social History Type Response Smoking Status Never smoker entered on: 05/23/14 Sex Female
--- OUTSIDE RECORDS SUMMARY | 2023-12-27 06:49 | XMS_ITS | Continuity of Care Document ---
Author Organization [facility] Adult Address [address] [place] [address]- Care Team Providers Care Lockstitch Front Edge Tape Sewer Name Role Phone Not on Staff, PCP Primary Care Physician Unavail able Encounter [facility] Date(s): 07/14/19 - 11/11/[address] [address]- [facility] Attending Physician: Sherif CHEMIC MANGLER, Rosita Allergies, Adverse Reactions, Alerts Substance Reaction Severity [...] Joseph Phelan MA 3Admin Note: Joseph León [facility] [place] 4Result Comment: [07/10/2015] joseph león 5Admin Note: [place] 6Admin Note: [place] 7Admin [...] 03/09/19 11:53:31 EDT, Route to Pharmacy Electronically, [id number], [facility] Start Date: 03/09/19 Stop Date: [...] 3 each, 3 Refills, Maintenance, 08/23/17 10:17:27, [place], 1sprays Nares, Both 2 times a day,x90 days Start Date: 08/23/17 Stop Date: 08/18/18 Status: Ordered gabapentin 800 mg oral tablet 1 tablet = 800 mg, By Mouth, 4 times a day, # 360 tablet, 1 Refills, Maintenance, 10/06/19 14:20:00EDT, Tablet, [facility], 160, cm, 08/09/19 8:24:00 EST, Height, 91, kg, :18:00 EDT, Dry Weight Start Date: 10/06/19 Stop Date: 04/03/20 Status: Ordered lamotrigine 100 mg oral tablet 100 mg, 1, tablet, By Mouth, 2 times a day, # 180 tablet, Refills 1, Tot. Refills 1, Maintenance, 10/06/19 14:20:00 EDT, Route to Pharmacy Electronically, [facility], New increaseddose, 160, cm, 08/09/19 [...]
--- OUTSIDE RECORDS SUMMARY | 2023-12-27 06:49 | XMS_ITS | Continuity of Care Document ---
Author Organization [facility] Address [address] [place] [address]- Care Team Providers Care Electrician Yard Name Role Phone Colt LANDIN, Jud Guzman Primary Care Physicia n Encounter [facility] [place] Date(s): 03/21/21 - 03/28/21 [facility] [address] [place] [address]- Attending Physician: Barry Tan DO Referring Physician: Colt LANDIN, Jud Guzman Allergies, [...] [facility] 2Admin Note: [facility] N[facility] Phelan [place] 3Admin Note: [facility] pallavi ferrell 4Result Comment: [07/10/2015] zache nicole 5Admin Note: Pallavi 6Admin Note: [place] 7Admin Note: diluent lot [id number] Exp 08/28 [...] oldest [Reference Range]: 1 Height 159.0 cm (03/21/21 1:04 PM) Oxygen Saturation [94-100 %] 99 % (03/21/21 1:04 PM) Pulse Rate [55-90 bpm] 61 bpm (03/21/21 1:04 PM) Blood Pressure [90-138/55-84 mm Hg] 153/ 64mm Hg *H* (03/21/21 1:04 PM) Respiratory Rate [16-30 br/min] 20 br/mi n (03/21/21 1:04 PM) Temperature [96.8-100.4 DegF] 98.1 DegF (03/21/21 1:04 PM) Mode of Delivery (Oxygen) Room air (03/21/21 1:04 PM) Blood pressure sites Arm, right (03/21/21 1:04 PM) Temperature Route Temporal (03/21/21 1:04 PM) Social History Social History Type Response Smoking Status Never smoker entered on: 05/23/14 Sex Female
--- OUTSIDE RECORDS SUMMARY | 2023-12-27 06:49 | XMS_ITS | Continuity of Care Document ---
Author Organization [facility] Address [address] [place] [address]- Care Team Providers Care Family Practice Doctor Name Role Phone Colt LANDIN, Jud Guzman Primary Care Physicia n Encounter [facility] [place] Date(s): 03/21/21 - 04/20/21 [facility] [address] [place] [address]- Attending Physician: Freddie Mcgrath Admitting Physician: AdmtrFreddie Referring Physician: Admtr, Freddie Allergies, Adverse Reactions, Alerts Substance Reaction Severity [...] diphtheria-tetanus toxoids (DT) 10/29/03 Given 1Admin Note: mollymeagansusanthao high dose 2Admin Note: Joseph Phelan [place] 3Admin Note: Joseph Rivera [facility] pallavi ferrell 4Result Comment: [07/10/2015] joseph [...]
--- OUTSIDE RECORDS SUMMARY | 2023-12-27 06:49 | XMS_ITS | Continuity of Care Document ---
Author Organization [facility] Address Unknown Care Team Providers Care Ore Sampler Name Role Phone Colt LANDIN, Jud Guzman Primary Care Physicia n Encounter [facility] Date(s): 05/05/21 - 06/04/21 [facility] Allergies, Adverse Reactions, Alerts Substance Reaction [...] Note: Joseph Phelan MA 3Admin Note: Joseph Romelia [facility] pallavi ferrell 4Result Comment: [07/10/2015] zachcece rivera [...]
--- OUTSIDE RECORDS SUMMARY | 2023-12-27 06:49 | XMS_ITS | Continuity of Care Document ---
Author Organization [facility] Address [address] [place] [address]- Care Team Providers Care Engine Research Engineer Name Role Phone Toñito COLE, [facility] Primary Care Physician [place] [facility] [place]23[place]22 - 10/23/22 [facility] [address] [place] [address]- Attending Physician: Freddie Mcgrath Admitting Physician: Freddie [...] virus vaccine, inactivated 5 04/26/09 Gi henri [id number] 12y+ bivalent booster vax 03/12/22 Recorded SARS-CoV-2 mRNA (hcnyotv-kuid-dflyw) vax 10/17/21 Recorded SARS-CoV-2 (COVID-19) mRNA BNT-162b2 vac 03/28/21 Recorded pneumococcal 23-valent vaccine 09/24/16 Given pneumococcal 23-valent vaccine 6 10/24/04 Given pneumococcal 13-valent vaccine 07/10/15 Given Zoster Vaccine Live 7 09/13/08 Given diphtheria-tetanus toxoids (DT) 10/29/03 Given 1Admin Note: [facility] 2Admin Note: Joseph Phelan [place] 3Admin Note: Joseph Romelia [facility] pallavi [place] 4Result Comment: [07/10/2015] joseph [...] 10/23/22 13:21:00 EDT, Route to Pharmacy Electronically, [id number], Partial fill upon patient request if the [...] Maintenance,11/17/22 8:37:00 EDT, Route to Pharmacy Electronically, [facility][id number], Partial fill upon patient request if the [...] 11/17/22 8:37:00 EDT, Route to Pharmacy Electronically, [facility][id number], 159, cm, 10/01/22 8:32:00 EDT, Height, 81, kg, 12/10/21 9:01:00 EDT, Dry Weight Start Date: 11/17/22 Status: Ordered lamotrigine 100 mg oral tablet 1, tablet, By Mouth, 2 times a day, for 90 days, # 180 tablet, Refills 2, Tot. Refills 2, Hard Stop11/17/22 8:37:00 EDT, 02/20/22 8:37:00 EDT, Route to Pharmacy Electronically, [facility], 159, cm, 02/12/22 13:41:00 EDT, Height, 81... Start Date: 02/20/22 Stop Date: 11/17/22 Status: Ordered lamotrigine 25 mg oral tablet 50 mg, 2, tablet, By Mouth, 2 times a day, dose increase, # 360 tablet, Refills 3, Tot. Refills 3, Maintenance, 11/17/22 8:38:00 EDT, Route to Pharmacy Electronically, [facility] #[id number], Partial fill upon patient request if the prescription... Start Date: 11/17/22 Status: Ordered lamotrigine 25 mg oral tablet 50 mg, 2, tablet, By Mouth, 2 times a day, for 90 days, dose increase, # 360 tablet, Refills 2, Tot. Refills 2, Hard Stop 11/17/22 8:38:00 EDT, 02/20/22 8:38:00 EDT, Route to Pharmacy Electronically[facility], Partial fill upon pa... Start [...] Janna Sibley MD Position: [facility] Primary Care Physician Member Role: PCP Address: Address: [address] [place] [address] [address] [place], [place] [address] Name: Nasrin Graf RN Position: [facility] [place] Nurse Member Role: Primary Care Nurse Name: Aislinn Mccauley RN Position: [facility] RN Member Role: Primary Care Nurse Care Team Related Persons Name: AMIRA MURPHY Address: [address] [place] [address] Name: AMIRA MURPHY Address: home [address] [facility] [place] [address] Name: AMIRA MURPHY Address: [address] [address] [place] Address: temporary 0 Name: TITO MURPHY Address: [address] [address] [place] Name: TITO MURPHY Address: [address] [address] Name: TITO MURPHY Address: [address] [address]
--- OUTSIDE RECORDS SUMMARY | 2023-12-27 06:49 | XMS_ITS | Continuity of Care Document ---
Author Organization [facility] Address [address] [place] [address]- Care Team Providers Care Orthopedic Cast Specialist Name Role Phone Toñito COLE, Janna Primary Care Physician Encounter [facility] [place] Date(s): 05/20/22 - 06/19/22 [facility] [address] [place] [address]- Attending Physician: Freddie Mcgrath Admitting Physician: Freddie [...] virus vaccine, inactivated 5 04/26/09 Gi henri [id number] 12y+ bivalent booster vax 03/12/22 Recorded SARS-CoV-2 mRNA (avvfngv-jgdn-cjjqr) vax 10/17/21 Recorded SARS-CoV-2 (COVID-19) mRNA BNT-162b2 vac 03/28/21 Recorded pneumococcal 23-valent vaccine 09/24/16 Given pneumococcal 23-valent vaccine 6 10/24/04 Given pneumococcal 13-valent vaccine 07/10/15 Given Zoster Vaccine Live 7 09/13/08 Given diphtheria-tetanus toxoids (DT) 10/29/03 Given 1[facility] Note[facility] 2[facility] Note: [facility] 3Admin Note: [facility] 4Result Comment: [07/10/2015] [facility] 5[facility] [...] 05/27/22 10:02:00 EST, [id number], Partial fill upon patient requ... Start Date: [...] 06/25/22 10:09:00 EST, 05/27/22 10:09:00 EST, Tablet, [facility][id number], Partial fill upon patient request if the [...] Care Team Personnel Name: Saadia Abdalla Position: [facility] Onco RN Member Role: Primary Care Nurse Name: Janna Sibley MD Position: [facility] Primary Care Physician Member Role: PCP Address: Address: [address] [place] [address] [address] [place], [place] [address] Name: Nasrin Graf RN Position: [facility] [place] Nurse Member Role: Primary Care Nurse Name: Aislinn Mccauley RN Position: [facility] RN Member Role: Primary Care Nurse Care Team Related Persons Name: AMIRA MURPHY Address: home [address] [facility] [address] Name: AMIRA MURPHY Address: home [address] [place] [address] Address: temporary 0 Name: AMIRA MURPHY Address: home [address] [place] [address] Name: TITO MURPHY Address: home [address] [place] [address] Name: TITO MURPHY Address: home [address] [place] [address] Name: TITO MURPHY Address: [address] [address]
--- OUTSIDE RECORDS SUMMARY | 2023-12-27 06:49 | XMS_ITS | Continuity of Care Document ---
Author Organization [facility] Address [address] [facility], [address] Floor, [address] [place] [address]- Care Team Providers Care College And Career Counselor Name Role Phone Toñito COLE, [facility] Primary Care Physician Encounter [facility] [place] Date(s): 07/15/23 - 08/14/23 [facility] [address], 3[address], [address] [place] [address]- Allergies, Adverse Reactions, Alerts Substance Reaction Severity [...] virus vaccine, inactivated 5 04/26/09 Gi henri [id number] 12y+ bivalent booster vax 03/12/22 Recorded SARS-CoV-2 mRNA (dvzorri-logr-lljto) vax 10/17/21 Recorded SARS-CoV-2 (COVID-19) mRNA BNT-162b2 vac 03/28/21 Recorded SARS-CoV-2 (COVID-19) mRNA BNT-162b2 vac 08/15/20 Given pneumococcal 23-valent vaccine 09/24/16 Given pneumococcal 23-valent vaccine 6 10/24/04 Given pneumococcal 13-valent vaccine 07/10/15 Given Zoster Vaccine Live 7 09/13/08 Given diphtheria-tetanus toxoids (DT) 10/29/03 Given 1Admin Note: [facility] 2[facility] Note: [facility] 3Admin Note: [facility] pall[place] 4Result Comment: [07/10/2015] chelo rivera 5Admin Note: [...] Refills, Maintenance, 01/15/22 16:23:00 EDT, Tablet, [facility], Partial fill upon patient request [...] Maintenance,11/17/22 8:37:00 EDT, Route to Pharmacy Electronically, [id number], Partial fill upon patient request if the [...] 13:08:00 EDT, Route to Pharmacy Electronically, [facility], 159, cm, 01/20/23 8:23:00 EDT, [...] Required Details, Route to Pharmacy Electronically, [facility], 159, cm, 03/11/23 9:45:00 EDT, Height, 81, kg, 0... Start Date: 05/17/23 Status: Ordered Nitrostat 0.3 mg sublingual tablet 1 tablet = 0.3 mg, Sublingual, Every 5 minutes, PRN as needed for chest pain, not to exceed 3 doses/15 min--if pain persists, seek medical attention, # 25 tablet, 0 Refills, Maintenance, 06/16/23 10:10:00 EST, Tablet, [facility][id number], Part... Start Date: 06/16/23 Status: Ordered omeprazole 20 mg oral delayed release tablet 1 tablet = 20 mg, By Mouth, 2 times a day, # 180 tablet, 1 Refills, Maintenance, 07/20/23 13:18:00 EST, EC Tablet, [facility], Partial fill upon patient request [...] Janna Sibley MD Position: [facility] Physician - Primary Care Member Role: PCP Address: Address: [address] [place] [address] 3rd [place], [place] [address] Name: Aislinn Mccauley RN Position: [facility] RN Member Role: Primary Care Nurse Care Team Related Persons Name: AMIRA MURPHY Address: home [address] [place] [address] [place] Address: [place] 0 Name: AMIRA MURPHY Address: home [address] [facility] [address] Name: AMIRA MURPHY Address: home [address] [place] [address] Name: TITO MURPHY Address: home [address] [place] [address] [place] Name: TITO MURPHY Address: home [address] [place] [address] Name: TITO MURPHY Address: home [address] [place] [address]
--- OUTSIDE RECORDS SUMMARY | 2023-12-27 06:49 | XMS_ITS | Continuity of Care Document ---
Author Organization [facility] Address [address] [place] [address]- Care Team Providers Care Insulation Machine Operator Name Role Phone Colt LANDIN, Jud Guzman Primary Care Physicia n [id number] Date(s): 12/06/20 - 04/03/21 [facility] [address] [place] [address]- Discharge Disposition: A-D/C Home Attending Physician: Annita Go MD Admitting Physician: Jessica Gallegos MD Referring Physician: Colt LANDIN, Jud Guzman [...] 3Admin Note: Joseph Rivera [facility] pallavi ferrell 4Result Comment: [07/10/2015] joseph [...] DELIVERY, Partial fill upon patient request, [place], 09/04/20 14:05:00 E... Start Date: 09/11/20 Status: [...] oldest [Reference Range]: 1 Height 159.0 cm (12/11/20 2:23 PM) Weight 84.9 kg (12/11/20 2:23 PM) Oxygen Saturation [94-100 %] 98 % (12/11/20 2:23 PM) Pulse Rate [55-90 bpm] 63 bpm (12/11/20 2:23 PM) Body Mass Index [18.5-24.99] 33.58 *>HHI* (12/11/20 2:23 PM) Blood Pressure [90-138/55-84 mm Hg] 145/ 64mm Hg *H* (12/11/20 2:23 PM) Respiratory Rate [16-30 br/min] 24 br/mi n (12/11/20 2:23 PM) Temperature [96.8-100.4 DegF] 98.9 DegF (12/11/20 2:23 PM) Mode of Delivery (Oxygen) Room air (12/11/20 2:23 PM) Blood pressure sites Arm, left (12/11/20 2:23 PM) Temperature Route Temporal (12/11/20 2:23 PM) Dry Weight 84.9 kg (12/11/20 2:23 PM) Weight Obtained Via Standing scale (12/11/20 2:23 PM) Dry Weight Obtained Via Standing scale (12/11/20 2:23 PM) Social History Social History Type Response Smoking Status Never smoker entered on: 05/23/14 Sex Female
--- OUTSIDE RECORDS SUMMARY | 2023-12-27 06:49 | XMS_ITS | Continuity of Care Document ---
Author Organization [facility] Address [address] [place] [address]- Care Team Providers Care Baseball Inspector Name Role Phone Toñito COLE, Janna Primary Care Physician ( [phone] [place] [facility] [place]16[place]23 - 10/16/23 [facility] [address] [address] Attending Physician: Freddie Mcgrath Admitting Physician: Freddie [...] virus vaccine, inactivated 5 04/26/09 Gi henri [id number] 12y+ bivalent booster vax 03/12/22 Recorded SARS-CoV-2 mRNA (ubshnnh-uapi-zjmwy) vax 10/17/21 Recorded SARS-CoV-2 (COVID-19) mRNA BNT-162b2 vac 03/28/21 Recorded SARS-CoV-2 (COVID-19) mRNA BNT-162b2 vac 08/15/20 Given pneumococcal 23-valent vaccine 09/24/16 Given pneumococcal 23-valent vaccine 6 10/24/04 Given pneumococcal 13-valent vaccine 07/10/15 Given Zoster Vaccine Live 7 09/13/08 Given diphtheria-tetanus toxoids (DT) 10/29/03 Given 1Admin Note[facility] 2[facility] [place] 3Admin Note: [facility] pallavi [place] 4Result Comment: [07/10/2015] [facility] 5Admin Note: [...] 13:21:00 EDT, Aerosol, Route to Pharmacy Electronically, [id number], [facility]... Start Date: 10/13/23 [...] 13:21:00 EDT, Powder, Route to Pharmacy Electronically, [id number], [facility]... Start Date: 10/13/23 Stop Date: 10/07/24 Status: Ordered gabapentin 300 mg oral capsule 300 mg, 1, capsule, By Mouth, 3 times a day, EMERGENCY SUPPLY UNTIL MAIL ORDER COMES IN, # 30 capsule, Refills 0, Tot. Refills 0, Maintenance, 09/17/23 16:29:00 EDT, Route to Pharmacy Electronically[facility][id number], Partial fill upon viral... Start Date: 09/17/23 [...] Required Details, Route to Pharmacy Electronically, [facility], 159, cm, 03/11/23 9:45:00 EDT, Height, 81, kg, 0... Start Date: 05/17/23 Status: Ordered Nitrostat 0.3 mg sublingual tablet 1 tablet = 0.3 mg, Sublingual, Every 5 minutes, PRN as needed for chest pain, not to exceed 3 doses/15 min--if pain persists, seek medical attention, # 25 tablet, 0 Refills, Maintenance, 06/16/23 10:10:00 EST, Tablet, [facility] #[id number], Part... Start Date: 06/16/23 Status: Ordered omeprazole 20 mg oral delayed release tablet 1 tablet = 20 mg, By Mouth, 2 times a day, # 180 tablet, 1 Refills, Maintenance, 07/20/23 13:18:00 EST, EC Tablet, [facility], Partial fill upon patient request [...] Care Team Personnel Name: Saadia Abdalla Position: [facility] Onco RN Member Role: Primary Care Nurse Name: Janna Sibley MD Position: [facility] Physician - Primary Care Member Role: PCP Address: Address: [address] [place] [address] [address] [place], [place] [address] Name: Aislinn Mccauley RN Position: [facility] RN Member Role: Primary Care Nurse Care Team Related Persons Name: AMIRA MURPHY Address: home [address] [place], [place] Address: temporary 0 Name: AMIRA MURPHY Address: home [address] [facility] [address] Name: AMIRA MURPHY Address: home [address] [place], [place] Name: TITO MURPHY Address: home [address] [place] [address] [place] Name: TITO MURPHY Address: home [address] [place] [address] Name: TITO MURPHY Address: home [address] [place] [address]
--- OUTSIDE RECORDS SUMMARY | 2023-12-27 06:49 | XMS_ITS | Continuity of Care Document ---
Author Organization [facility] Address [address] [place] [address]- Care Team Providers Care Accounting Software Specialist Name Role Phone Colt LANDIN, Jud Guzman Primary Care Physicia n Encounter [facility] Date(s): 08/06/20 - 09/05/20 [facility] [address] [place] [address]- Allergies, Adverse Reactions, Alerts Substance Reaction Severity Status imipramine Active hydrOXYzine Itching Active Immunizations Given and Recorded Vaccine Date Status Refusal Reason influenza virus vaccine, inactivated 05/02/19 Marty rded influenza virus vaccine, inactivated 1 04/07/18 Gi henri influenza virus vaccine, inactivated 2 04/01/17 Gi henir influenza virus vaccine, inactivated 3 05/15/16 Gi [...] [facility] 2Admin Note: Joseph Phelan [place] 3Admin Note: Joseph [facility] [place] 4Result Comment: [07/10/2015] joseph rivera 5Admin Note: [...] 13:01:00 EST, Route to Pharmacy Electronically, [facility], Partial fill upon patient request, 160, cm, 04/15/20 9:50:00 ED... Start Date: 05/14/20 Status: Ordered lamotrigine 100 mg oral tablet 100 mg, 1, tablet, By Mouth, 2 times a day, Take with 25mg tablet for total 125mg twice daily, # 180 tablet, Refills 0, Tot. Refills 0, Maintenance, 05/14/20 13:01:00 EST, Route to Pharmacy Electronically, [facility], Partial fill u... Start Date: [...]
--- OUTSIDE RECORDS SUMMARY | 2023-12-27 06:49 | XMS_ITS | Continuity of Care Document ---
Author Organization [facility] Address [address] [address]- Care Team Providers Care Director Call Name Role Phone Toñito COLE, Janna Primary Care Physician [place] [facility] [place] 08/06/23 [facility] [address] [address] Allergies, Adverse Reactions, Alerts Substance Reaction [...] influenza virus vaccine, inactivated 2 04/01/17 Gi hneri influenza virus vaccine, inactivated 3 05/15/16 Gi [...] virus vaccine, inactivated 5 04/26/09 Gi henri [id number] 12y+ bivalent booster vax 03/12/22 Recorded SARS-CoV-2 mRNA ([id number]-krqy-[id number]) vax 10/17/21 Recorded SARS-CoV-2 (COVID-19) mRNA BNT-162b2 vac 10/8/21 Recorded SARS-CoV-2 (COVID-19) mRNA BNT-162b2 vac 08/15/20 Given pneumococcal 23-valent vaccine 09/24/16 Given pneumococcal 23-valent vaccine 6 10/24/04 Given pneumococcal 13-valent vaccine 07/10/15 Given Zoster Vaccine Live 7 09/13/08 Given diphtheria-tetanus toxoids (DT) 10/29/03 Given [facility] 2[facility] Note: [facility] [place] 3Admin Note: [facility] [place] 4Result Comment: [07/10/2015] zache nicole [...] Refills, Maintenance, 01/15/22 16:23:00 EDT, Tablet, [facility], Partial fill upon patient request [...] Maintenance,11/17/22 8:37:00 EDT, Route to Pharmacy Electronically, [facility][id number], Partial fill upon patient request if the [...] 0 Refills, Maintenance, 06/16/23 10:10:00 EST, Tablet, [facility] #[id number], Part... Start Date: 06/16/23 Status: Ordered omeprazole [...] Care Team Personnel Name: Saadia Abdalla Position: [facility] Onco RN Member Role: Primary Care Nurse Name: Janna Sibley MD Position: [facility] Physician - Primary Care Member Role: PCP Address: Address: [address] [place] [address] [address] [place], [place] [address] Name: Aislinn Mccauley RN Position: [facility] RN Member Role: Primary Care Nurse Care Team Related Persons Name: AMIRA MURPHY Address: home [address] [place] [address] [place] Address: [facility] 0 Name: AMIRA MURPHY Address: home [address] [place] [address] Name: AMIRA MURPHY Address: home [address] [facility] [id number] Name: TITO MURPHY Address: home [address] [place] [address] [place] Name: TITO MURPHY Address: home [address] [place] [address] Name: TITO MURPHY Address: home [address] [place] [address]
--- OUTSIDE RECORDS SUMMARY | 2023-12-27 06:49 | XMS_ITS | Continuity of Care Document ---
Author Organization [facility] Address [address] [place] [address]- Care Team Providers Care Greenhouse Manager Name Role Phone Toñito COLE, [facility] Primary Care Physician Encounter [facility] [place] Date(s): 09/17/23 - 10/17/[address] [address]- Allergies, Adverse Reactions, Alerts Substance Reaction Severity [...] virus vaccine, inactivated 5 04/26/09 Gi henri [id number] 12y+ bivalent booster vax 03/12/22 Recorded SARS-CoV-2 mRNA (yenggjo-zumc-getrz) vax 10/17/21 Recorded SARS-CoV-2 (COVID-19) mRNA BNT-162b2 vac 03/28/21 Recorded SARS-CoV-2 (COVID-19) mRNA BNT-162b2 vac 08/15/20 Given pneumococcal 23-valent vaccine 09/24/16 Given pneumococcal 23-valent vaccine 6 10/24/04 Given pneumococcal 13-valent vaccine 07/10/15 Given Zoster Vaccine Live 7 09/13/08 Given diphtheria-tetanus toxoids (DT) 10/29/03 Given 1[facility] 2[facility] [place] 3Admin Note: [facility] [place] 4Result Comment: [07/10/2015] [facility] 5[facility] Note: [...] 13:21:00 EDT, Aerosol, Route to Pharmacy Electronically, [id number], [facility]... Start Date: 10/13/23 Stop Date: [...] 13:21:00 EDT, Powder, Route to Pharmacy Electronically, [id number], [facility]... Start Date: 10/13/23 Stop Date: 10/07/24 Status: Ordered gabapentin 300 mg oral capsule 300 mg, 1, capsule, By Mouth, 3 times a day, EMERGENCY SUPPLY UNTIL MAIL ORDER COMES IN, # 30 capsule, Refills 0, Tot. Refills 0, Maintenance, 09/17/23 16:29:00 EDT, Route to Pharmacy Electronically[id number], Partial fill upon viral... Start Date: 09/17/23 [...] 0 Refills, Maintenance, 06/16/23 10:10:00 EST, Tablet, [facility][id number], Part... Start Date: 06/16/23 Status: Ordered omeprazole [...] Care Team Personnel Name: Saadia Abdalla Position: [facility] Onco RN Member Role: Primary Care Nurse Name: Janna Sibley MD Position: [facility] Physician - Primary Care Member Role: PCP Address: Address: [address] [place] [address] [address] [place], [place] [address] Name: Aislinn Mccauley RN Position: [facility] RN Member Role: Primary Care Nurse Care Team Related Persons Name: AMIRA MURPHY Address: home [address] [place] [address] [place] Address: temporary 0 Name: AMRIA MURPHY Address: [address] [facility] [address] [id number] Name: AMIRA MURPHY Address: home [address] [place] [address] Name: TITO MURPHY Address: [address] [place] [address] [place] Name: TITO MURPHY Address: home [address] [place] [address] Name: TITO MURPHY Address: home [address] [place] [address]
--- OUTSIDE RECORDS SUMMARY | 2023-12-27 06:49 | XMS_ITS | Continuity of Care Document ---
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 Name Role Phone Janna Sibley MD Primary Care Physician [place] [facility] [place](s[place] 10/26/23 - 11/25/23 [facility] [address] [place] [address] Attending Physician: Freddie Mcgrath Admitting Physician: AdmFreddie smiht Referring Physician: Admtr, Freddie Allergies, Adverse Reactions, [...] vaccine, inactivated 6 04/26/09 Gi henri SARS-CoV-2(COVID-19)mRNA-LNP vac([id number]) 04/10/23 Recorded [id number] 12y+ bivalent booster vax 03/12/22 Recorded SARS-CoV-2 mRNA (yzuwltq-uvfw-qtond) vax 10/17/21 Recorded SARS-CoV-2 (COVID-19) mRNA BNT-162b2 vac 03/28/21 Recorded SARS-CoV-2 (COVID-19) mRNA BNT-162b2 vac 08/15/20 Given SARS-CoV-2 (COVID-19) mRNA BNT-162b2 vac 07/25/20 Recorded pneumococcal 23-valent vaccine 09/24/16 Given pneumococcal 23-valent vaccine 7 10/24/04 Given pneumococcal 13-valent vaccine 07/10/15 Given Zoster Vaccine Live 8 09/13/08 Given diphtheria-tetanus toxoids (DT) 10/29/03 Given 1Result Comment: [facility] [id number] 2[facility] 4[facility] 5Result Comment: [07/10/2015] joseph rivera 6Admin Note: [...] 13:21:00 EDT, Aerosol, Route to Pharmacy Electronically, [id number], [facility]... Start Date: 10/13/23 [...] 13:21:00 EDT, Powder, Route to Pharmacy Electronically, [id number], [facility]... Start Date: 10/13/23 Stop [...] 13:09:00 EDT, Route to Pharmacy Electronically, [facility],Partial fill upon patient request if the prescripti... Start Date: 02/12/23 Status: Ordered lisinopril 10 mg oral tablet See Instructions, TAKE 1 TABLET DAILY, # 30 tablet, Refills 11, Maintenance, 05/17/23 8:21:00 EST, Instructions Replace Required Details, Route to Pharmacy Electronically, [facility], 159, cm, 03/11/23 9:45:00 EDT, Height, 81, kg, 0... Start Date: 05/17/23 Status: Ordered Nitrostat 0.3 mg sublingual tablet 1 tablet = 0.3 mg, Sublingual, Every 5 minutes, PRN as needed for chest pain, not to exceed 3 doses/15 min--if pain persists, seek medical attention, # 25 tablet, 0 Refills, Maintenance, 06/16/23 10:10:00 EST, Tablet, [id number], Part... Start Date: 06/16/23 Status: Ordered omeprazole 20 mg oral delayed release tablet 1 tablet = 20 mg, By Mouth, 2 times a day, # 180 tablet, 1 Refills, Maintenance, 07/20/23 13:18:00 EST, EC Tablet, [facility], Partial fill upon patient [...] entered on: 05/23/14 Sex Female Note * Kat Brown: PERFORM, SIGN, VERIFY Event Display: Patient Education/Instruction Authored Date: [facility] Heme/Onc Adult Clinical Summary Person Information Name MILLER MURPHY Age 75 Years 1935 12:00 AM PCP Cale COLE, Chris Simon PCP Reason for Visit: Allergy Info: hydrOXYzine; imipramine Vital Signs Height Weight BMI Blood Pressure / Temperature Pulse Rate Respiratory Rate 02 Sat Mode of Delivery / Medication Information Albuterol (albuterol 90 mcg/inh inhalation aerosol with adapter) 2 puffs, Inhalation, 4 times a day, 17 Gm, As Needed, as needed for wheezing, Refills: 0 Aspirin 81 mg, Oral, Tomorrow, Refills: 0 Calcium And Vitamin D Combination (calcium-vitamin D 600 mg-400 intl units oral tablet) 1 tablet, Oral, Tomorrow, 30 tablet, Refills: 0 Epinephrine (Epipen Auto Injector) 0.3 mg, Intramuscular, once, 3 each, As Needed, as needed for anaphylaxis, Refills: 1 Estradiol (Climara 0.1 mg/24 hours weekly transdermal film, extended release) 1 patch, Topically, every week, 5 patch, Refills: 0 Omeprazole (Prilosec 40 mg oral enteric coated capsule) 1 capsule, Oral, twice a day, 180 capsule, Refills: 3 Sertraline (Zoloft 25 mg oral tablet) 1 tablet, Oral, Tomorrow, 90 tablet, Refills: 0 Solifenacin (VESIcare 10 mg oral tablet) 1 tablet, Oral, Daily in the morning, 30 tablet, 0 , Refills: 3 Problem List Date Problem 12/28/05 Hiatal hernia with gastroesophageal reflux disease 12/28/05 Malignant melanoma 12/28/05 Fibromyalgia 12/28/05 Asthma 12/28/05 Hypercholesterolemia If the following labs have been performed in the last year, the most recent result is displayed below. Diagnostic Results Lab Result Value Date Lead Hemoglobin A1C LDL HDL Triglycerides Total Cholesterol Disclaimer: The information provided is of a [...] you may find a [facility] provider by calling [facility] Link at [phone]. Patient Education Information Follow-up Details: Patient Education Material: Please follow instructions discussed with your provider during this visit as well as any education documents you were given today. rv in one year Patient Care team information Care Team Personnel Name: Saadia Abdalla Position: [facility] Onco RN Member Role: Primary Care Nurse Name: Janna Sibley MD Position: [facility] Physician - Primary Care Member Role: PCP Address: Address: [address] [place] [address]- Name: Aislinn Mccauley RN Position: [facility] RN Member Role: Primary Care Nurse Care Team Related Persons Name: AMIRA MURPHY Address: [address] [place] [address] Name: AMIRA MURPHY Address: [address] [place], [place] Address: temporary 0 Name: AMIRA MURPHY Address: [address] [facility] [id number] Name: TITO MURPHY Address: [address] [place] [address] [place] Name: TITO MURPHY Address: [address] [place], [place] Name: TITO MURPHY Address: [address] [place] [address]
--- NOTE | 2023-12-27 06:52 | ECG_ITS ---
Test Reason : DYSPNEA Blood Pressure : / mmHG Vent. Rate : 116 BPM Atrial Rate : 116 BPM P-R Int : 000 ms QRS Dur : 126 ms QT Int : 306 ms P-R-T Axes : 000 009 225 degrees QTc Int : 425 ms Normal sinus rhythm with frequent PACs Left bundle branch block Abnormal ECG No previous ECGs available Referred By: Alton Campbell Electronically Signed By:Tavo Street
[2023-12-27 06:58] LABS: MANUAL DIFF FLAG NO
--- NOTE | 2023-12-27 07:00 | CA_ITS ---
Transthoracic Echocardiogram Patient (Last, First, Middle): Elvia Winkler S Gender: Female Date of : 1935 Age: 88 Procedure Date: 12/27/2023 Procedure Type: Transthoracic Echocardiogram Location: ER Height: 157.48 cm Weight: 78.47 kg BSA: 1.80 m2 Heart Rate: bpm BP: 113 / 58 mmHg Maintenance Superintendent: Referring MD: Olive NELSON Symptoms: chf exacerbation Study Quality: Adequate ECG Rhythm: Atrial Fibrillation Conclusions: - Normal left ventricular size and systolic function. There is mildly increased left ventricular wall thickness. The visually estimated ejection fraction is between 55-60%. - Normal right ventricular cavity size and systolic function. - There is mild calcification of the aortic valve. There is no aortic valve regurgitation. V max across the aortic valve od 3.6 m/sec but suspect that this is due to LVOT obstruction. - There is severe mitral annular calcification. There is mild to moderate mitral valve regurgitation. Flow acceleration through mitral valve and MG 8 mm Hg at HR 77/min with severe MAC. There is systolic anterior motion of the mitral valve leaflet and dynamic LVOT obstruction. There is V max of 3.6 m/sec and peak gradient across LVOT/AV is 53 mm Hg. No valsalva was performed during the echo. - The right ventricular systolic pressure is 44 mmHg. Moderately elevated right atrial pressure. Mild pulmonary hypertension is present. - There is a moderate left sided pleural effusion. Findings Left Ventricle Normal left ventricular size and systolic function. There is mildly increased left ventricular wall thickness. The visually estimated ejection fraction is between 55-60%. There is no evidence of regional wall motion abnormalities. Diastolic function is indeterminate on the basis of available data. Right Ventricle Normal right ventricular cavity size and systolic function. Atria The left atrium is mildly dilated. Aortic Valve There is mild calcification of the aortic valve. There is no aortic valve regurgitation. V max across the aortic valve od 3.6 m/sec but suspect that this is due to LVOT obstruction. Mitral Valve There is severe mitral annular calcification. There is mild to moderate mitral valve regurgitation. Flow acceleration through mitral valve and MG 8 mm Hg at HR 77/min with severe MAC. There is systolic anterior motion of the mitral valve leaflet and dynamic LVOT obstruction. There is V max of 3.6 m/sec and peak gradient across LVOT/AV is 53 mm Hg. No valsalva was performed during the echo. Pulmonic Valve The pulmonic valve was not well visualized. Tricuspid Valve Normal tricuspid valve structure. There is no tricuspid valve regurgitation. The right ventricular systolic pressure is 44 mmHg. Moderately elevated right atrial pressure. Mild pulmonary hypertension is present. Great Vessels All visible segments of the aorta are normal in size. Venous The inferior vena cava is dilated and collapses less than 50% with inspiration. Pericardium/Pleural There is no evidence of pericardial effusion. There is a moderate left sided pleural effusion. Prior Study Comparison No prior study available for comparison. Measurements 2D Linear Measurements IVSd: 1.22 0.6-0.9/0.6-1.0 cm LVIDd: 4.17 3.9-5.3/4.2-5.9 cm LVIDd Index: 2.32 2.4-3.2/2.2-3.1 cm/m2 LVIDs: 2.95 2.0-3.6 cm LVPWd: 1.25 0.7-1.1 cm Ao Root: 3.10 2.1-3.5 cm LA Diam: 4.00 2.7-3.8/3.0-4.0 cm LAIDs Index: 2.22 1.5-2.3 cm/m2 LV Mass: 229.05 67-162/88-224 g LV Mass Index: 127.25 43-95/49-115 g/m2 LVOT Diam: 2.00 3.0+(-)1.3 cm 2D Systolic Function EF 4C: 36.70 >55% EF 2C: 58.10 >55% EF BiP: 47.90 >55% Mitral Valve MV VTI: 0.56 MV Pk Yovani: 1.99 MV Mn Yovani: 1.30 MV Pk Grad: 16.00 MV Mn Grad: 8.00 MV Pk E: 1.62 MV PK A: 1.74 MV Decel Time: 215.00 E/A: 0.90 E'Lateral: 5.33 E'Medial: 3.92 E/E' Med: 41.30 E/E' Lat: 30.40 PHT: 63.00 MVA PHT: 3.49 MVA Continuity: 1.85 Decel [place]: 7.53 Aortic Valve AoV Pk Yovani: 3.52 AoV Mn Yovani: 1.91 AoV VTI: 0.63 AoV Pk Grad: 50.00 Aov Mn Grad: 19.00 JULIET Cont.VTI: 1.65 LVOT LVOT Pk Yovani: 1.62 LVOT Mn Yovani: 1.11 LVOT VTI: 0.33 LVOT Pk Grad: 10.00 LVOT Mn Grad: 6.00 LVOT Diam: 2.00 LVOT Area: 3.14 Diastolic Function MV Pk E: 1.62 MV Pk A: 1.74 E/A: 0.90 E'Medial: 3.92 E/E' Med: 41.30 E' Laterial: 5.33 E/E' Lat: 30.40 Right Ventricle TAPSE (mm): 23.00 Tricuspid Valve TR Pk Yovani: 3.02 TR Pk Grad: 36.00 RA Press: 8.00 RVSP: 44.00 Great Vessels Aorta Ao Root-2D: 3.10 2.0-3.7 cm Ao Asc: 3.20 2.1-3.4 cm Pulmonary Valve PV Pk Yovani: 1.48 Peak PV Grad: 9.00 Updated in Other Vendor System with Status of Final Tavo Street MD electronically signed on 12/28/2023 9:21:26 AM with status of Final
[2023-12-27 07:06] LABS: Venous Blood Gas Refer to POC result
[2023-12-27 07:11] LABS: VBG HCO3 25 mmol/L (22-26); VBG pCO2 52 mmHg; VBG pH 7.29 (7.32-7.43); VBG pO2 46 mmHg
[2023-12-27 07:13] LABS: Basophils Absolute Auto 0.1 X10*3/uL (0.0-0.2); Basophils Percent Auto 0.6 % (0-2); Eosinophils Absolute Auto 0.5 X10*3/uL (0.0-0.4); Eosinophils Percent Auto 3.3 % (0-4); Hematocrit 29.1 % (37.0-47.0); Hemoglobin 9.1 g/dl (12.0-16.0); Imm Gran Abs Auto 0.52 X10*3/uL (0.00-0.03); Imm Gran Pct Auto 3.3 % (0.0-0.4); Lymphocytes Percent Auto 12.8 % (20-40); Mean Corpuscular HGB Conc 31.3 g/dl (31.0-35.0); Mean Corpuscular Hemoglobin 31.4 pg (27.0-33.0); Mean Corpuscular Volume 100.3 fL (80.0-98.0); Mean Platelet Volume 9.8 fL (9.4-12.3); Monocytes Percent Auto 6.4 % (2-11); Neutrophils Absolute Auto 11.8 x10*3/uL (2.0-8.3); Neutrophils Percent Auto 73.6 % (45-73); Platelet Count 264 X10*3/uL (160-400); Red Cell Distribution Width 13.4 % (11.0-16.0)
[2023-12-27 07:19] LABS: Alanine Aminotransferase 17 U/L (0-31); Albumin Level 3.9 g/dL (3.5-5.0); Alkaline Phosphatase 96 U/L (39-117); Anion Gap 15 (12-20); Aspartate Amino Transferase 19 U/L (5-31); Bilirubin Total 0.5 mg/dL (0.0-1.0); Blood Urea Nitrogen 35 mg/dL (9-16); Calcium 9.4 mg/dL (8.4-10.2); Carbon Dioxide 24 mmol/L (22-29); Chloride 109 mmol/L (96-108); Creatinine Clr Calc Pharmacy 33.4; Estimated Glomerular Filt Rate 45; Glucose Random 195 mg/dL (60-115); Potassium 4.5 mmol/L (3.3-5.1); Sodium 143 mmol/L (135-145); Total Protein 6.5 g/dL (6.5-8.0)
[2023-12-27 07:21] LABS: D Dimer High Sensitivity 747 NG/ML
[2023-12-27] MEDS: Lactated Ringers 500 ML 999 ML IVCONT (07:24)
[2023-12-27 07:30] LABS: Lactic Acid 2.3 mmol/L (0.5-2.0); Troponin-I High Sensitivity 214.6 ng/L (<3.5-17.0)
[2023-12-27] MEDS: Acetaminophen Supp 650 MG SUPP.RECT PR (07:59)
[2023-12-27] MEDS: cefTRIAXone sodium 1 GM in 0.9 % Sodium Chloride 50 ML IV (08:01)
[2023-12-27] MEDS: SODIUM CHLORIDE 2367 ML IV (08:02)
[2023-12-27 08:31] LABS: Appearance Urine Cloudy; Color Urine Yellow; Glucose Urine UA Negative (Negative); Leukocyte Esterase Urine Large (3+) (Negative); Nitrite Urine Negative (Negative); PH 5.5 (5.0-9.0); UMIC TRIGGER UACC YES; Urine Blood Negative (Negative); Urine Ketones Negative (Negative); Urine Protein 30 (1+) mg/dL (Neg-Trace)
[2023-12-27] MEDS: Azithromycin 500 MG in 0.9 % Sodium Chloride 250 ML 125 MG IV (08:42)
--- NOTE | 2023-12-27 08:47 | ED_ITS ---
HPI - SOB/Dyspnea General Chief Complaint: Dyspnea Stated Complaint: sob Time Seen by Provider: 12/27/23 06:43 Source: family and EMS Mode of arrival: EMS Limitations: altered mental status History of Present Illness ED Provider: Dr. Campbell HPI Narrative: Patient is DNR, had been on a week long trip with her family to [place]. Developed cough, shortness of breath and chest pain. Patient is on nightly CPAP and sometimes uses an albuterol MDI. EMS found the patient hypoxic and cyanotic, improved quickly on CPAP MD elicited complaint: shortness of breath and cough Pertinent past history: COPD Onset (ago): day(s) Timing: constant Severity: severe Known history of: COPD Associated symptoms: fever and cough Related Data Allergies Allergy/AdvReac Type Severity Reaction Status Date / Time No Known Allergies Allergy Verified 12/27/23 06:57 Review of Systems 2 Review of Systems: Yes all other systems are reviewed and are negative Neurologic: Denies Sensory deficit (Neuro) [facility] Social History Social History Unable to assess alcohol history related to: Unable to respond and Unknown Use of substances other than those prescribed or required for medical reasons: Unable to respond Advance Directives: No Advance Directives Information Provided: No Do you have a plan to hurt others: No Plan Physical Exam 2 Vital Signs: Vital Signs: Last Vital Signs Temp 100.4 F 12/27/23 07:19 Pulse 87 12/27/23 08:30 Resp 26 H 12/27/23 08:30 BP 126/47 L 12/27/23 08:30 Pulse Ox 96 12/27/23 08:30 O2 Del Method CPAP 12/27/23 08:30 O2 Flow Rate 28 12/27/23 07:58 FiO2 12/27/23 08:20 BMI result Body Mass Index 31.8 Const: Other: elderly female on CPAP looking ill Nutritional Appearance: average body habitus Orientation/consciousness: oriented to person Limitations: no limitations HEENT: Head: Yes normal to inspection Ears: external ears normal General nose exam: Normal external nose present Mouth: Normal oral and palatal mucosa present and oropharynx normal Throat: Yes posterior oropharynx normal Eyes: General: appearance normal, both eyes and all related structures Neck: Other: supple Neck: Yes normal visual inspection Chest: Chest palpation & inspection: normal inspection of the chest Resp: Other: bilaeral slight wheeze Cardio: Jugular venous distension: no JVD Rate: regular rate Rhythm: r egular rhythm Heart sounds: S1 normal heart sound present and S2 normal heart sound present GI: Inspection: Yes normal to inspection Palpation (GI): Soft to palpation, nontender and No hepatosplenomegaly present Auscultation: normal bowel sounds : General: Yes no CVA tenderness Back/Spine/Pelvis: Back: no CVA tenderness Skin: Other: wound vac applied to LE, no cellulitis appreciated Neuro: General: oriented to person Cranial nerves: Yes CN's II-XII intact bilaterally Motor exam (neuro): 5/5 motor strength present throughout S ensory Exam: No Sensory deficit (Neuro) Extrem: General: Yes normal to inspection Psych: Appearance: grossly normal Course Reevaluation(s) Reevaluation #1: Patient appears to have pneumonia, she has a high ddimer, will check her for a PE, which is consistent with her recent travel Time: 08:56 Reevaluation #2: I spent 40 minutes of critical care, with interventions, assessments, speaking to patient, consultants, and family. Time: 08:56 Medications Administered Generic Name Dose Route Start Last Admin Trade Name Freq PRN Reason Stop Dose Admin Azithromycin 500 mg/ Sodium 250 mls @ 125 mls/hr 12/27/23 07:45 12/27/23 08:42 Chloride IV 12/27/23 09:44 125 mls/hr ONCE ONE Administration Discontinued Medications Generic Name Dose Route Start Last Admin Trade Name Freq PRN Reason Stop Dose Admin Acetaminophen 650 mg 12/27/23 07:28 12/27/23 07:59 Acetaminophen Supp 650 Mg Supp.Rect UT 12/27/23 07:29 650 mg ONCE ONE Administration Lactated Ringer's 500 mls @ 999 mls/hr 12/27/23 06:45 12/27/23 07:24 Lr IVCONT 12/27/23 07:15 999 mls/hr .Q31M SAMIA Administration Sodium Chloride 2,367 mls @ 2,367 mls/hr 12/27/23 07:27 12/27/23 08:02 Ns 30 ml/kg infuse over 1 hr (2367 ml) 12/27/23 08:26 2,367 mls/hr IV Administration .Q1H STA Ceftriaxone Sodium 1 gm/ 50 mls @ 100 mls/hr 12/27/23 07:45 12/27/23 08:42 Sodium Chloride IV 12/27/23 08:14 Infused ONCE ONE Infusion Medical Decision Making Differential Diagnosis Differential Diagnoses: The differential diagnosis associated with the presentation includes (pneumonia, PE, cardiac ischemia, COPD exacerbation) Admission/Observation Consideration of admission/observation: Escalation of care including admission/observation considered (upon arrival patient considered for admission) Consult Healthcare Provider Management of the patient was discussed with: Hospitalist Lab Data 12/27/23 06:49 12/27/23 06:49 Labs: Lab Results 12/27/23 12/27/23 12/27/23 Range/Units 06:48 06:49 08:21 WBC 16.0 H (4.8-10.8) X10*3/uL RBC 2.90 L (4.20-5.50) X10*6/uL Hgb 9.1 L (12.0-16.0) g/dl Hct 29.1 L (37.0-47.0) % MCV 100.3 H (80.0-98.0) fL MCH 31.4 (27.0-33.0) pg MCHC 31.3 (31.0-35.0) g/dl RDW 13.4 (11.0-16.0) % Plt Count 264 (160-400) X10*3/uL MPV 9.8 (9.4-12.3) fL Immature Gran % (Auto) 3.3 H (0.0-0.4) % Neut % (Auto) 73.6 H (45-73) % Lymph % (Auto) 12.8 L (20-40) % [place] % (Auto) 6.4 (2-11) % Eos % (Auto) 3.3 (0-4) % Baso % (Auto) 0.6 (0-2) % Lymph # (Auto) 2.0 (1.2-4.9) X10*3/uL [place] # (Auto) 1.0 (0.1-1.2) X10*3/uL Eos # (Auto) 0.5 H (0.0-0.4) X10*3/uL Baso # (Auto) 0.1 (0.0-0.2) X10*3/uL Abs Immat Gran (auto) 0.52 H (0.00-0.03) X10*3/uL Absolute Neuts (auto) 11.8 H (2.0-8.3) x10*3/uL Absolute Nucleated RBC 0.000 (0.0-0.012) X10*3/uL Nucleated RBC % (auto) 0.0 (0.0-0.2) /100WBC Hold Purple Top SEE NOTE D-Dimer High Sensitivty 747 NG/ML VBG pH 7.29 L (7.32-7.43) VBG pCO2 52 mmHg VBG pO2 46 mmHg VBG HCO3 25 (22-26) mmol/L VBG O2 Saturation 63.0 % VBG Base Excess -1.0 mmol/L Sodium 143 (135-145) mmol/L Potassium 4.5 (3.3-5.1) mmol/L Chloride 109 H (96-108) mmol/L Carbon Dioxide 24 (22-29) mmol/L Anion Gap 15 (12-20) BUN 35 H (9-16) mg/dL Creatinine 1.13 (0.5-1.4) mg/dL Estim Creat Clear Calc 33.4 Estimated GFR 45 Random Glucose 195 H (60-115) mg/dL Lactic Acid 2.3 H* (0.5-2.0) mmol/L Calcium 9.4 (8.4-10.2) mg/dL Total Bilirubin 0.5 (0.0-1.0) mg/dL AST 19 (5-31) U/L ALT 17 (0-31) U/L Alkaline Phosphatase 96 (39-117) U/L Troponin I High Sens 214.6 H* (<3.5-17.0) ng/L Total Protein 6.5 (6.5-8.0) g/dL Albumin 3.9 (3.5-5.0) g/dL Urine Color Yellow Urine Appearance Cloudy Urine pH 5.5 (5.0-9.0) Ur Specific [place] 1.020 (1.005-1.025) Urine Protein 30 (1+) H (Neg-Trace) mg/dL Urine Glucose (UA) Negative (Negative) mg/dL Urine Ketones Negative (Negative) mg/dL Urine Blood Negative (Negative) Urine Nitrite Negative (Negative) Ur Leukocyte Esterase Large (3+) H (Negative) Urine RBC 0-2 (0-2) /HPF Urine WBC >50 H (0-5) /HPF Ur Squamous Epith Cells 0-2 (0-2) /HPF Urine Bacteria Trace (None Seen) Hyaline Casts 3-5 (0-2) /LPF Independent Interpretation I performed an independent interpretation of an: EKG (sinus with bigemeny, LBBB) and Plain X-Ray (right sided infiltrate, maybe some CHF) Independent Historian Clinical information obtained from an independent historian. History obtained from or confirmed by: EMS and Other (daughter) Chronic Conditions Patient?s care impacted by: Other (COPD) Discharge Plan Discharge Clinical Impression: Community acquired pneumonia, Acute exacerbation of chronic obstructive airways disease Patient Disposition: Admitted As Inpatient Print Language: Vietnamese
[2023-12-27 08:57] LABS: Reflex Lactate? Lactic Acid Added
[2023-12-27 09:09] LABS: Bacteria Urine Trace (None Seen); RBC Urine 0-2 /HPF (0-2); Squamous Epithelial Cell Urine 0-2 /HPF (0-2); UACC Culture Trigger YES; WBC Urine >50 /HPF (0-5)
--- NOTE | 2023-12-27 09:10 | PC.NURSE ---
Pt out of room for CT scan at this time with RT. CPAP remains in place at 12 with Fi02 28%. Pt without noted diff breathing but with movement and activity tachypnea noted. Straight cath for UA and rectal tylenol given for rectal 100.4. Wound vac in place to right LE, per daughter changed on Wednesday and for 7 days. Coban wrap to Left lower ext for another wound per daughter. Some swelling to BLE noted, normal for pt. Skin pwd. NSR on monitor with LBBB noted. Daughter at bedside, pt [place] and has macular degeneration.
[2023-12-27] MEDS: iohexoL 350 MG/ML 100 ML INFUS..BTL IV (09:46)
--- NOTE | 2023-12-27 09:56 | PC.NURSE ---
Dr Stevens to bedside for cardiac fast exam. Verbal order to hold rest of fluids ordered. Repeat Lactic and Troponin sent in addition to BNP. Pt appears comfortable
[2023-12-27 10:06] LABS: ~Lactic Acid-LAB USE ONLY 1.5 mmol/L (0.5-2.0)
[2023-12-27 10:10] LABS: B Type Natriuretic Peptide 873 pg/mL (<100)
[2023-12-27 10:30] LABS: Troponin-I High Sensitivity 174.2 ng/L (<3.5-17.0)
[2023-12-27] MEDS: Aspirin Enteric Coated 325 MG TABLET.DR PO (10:30)
--- NOTE | 2023-12-27 11:12 | PHA.MEDREC ---
Pharmacy Consult ? Medication Reconciliation Pharmacy has completed the medication reconciliation. Confirmed medications with patients daughter with list provided. The daughter Confirmed her meds but states her mom was taking an Atorvastatin 40mg regimen, the daughter [facility]. [facility] and they confirmed all the meds but atorvastatin and when I asked more upon it they state they have no history of her getting it.
--- NOTE | 2023-12-27 11:33 | P.HPHOSP_ITS ---
History of Present Illness Date of Service: 12/27/23 Attending physician on admission: Kingsley Barnes Chief Complaint: sob, malaise, chest pain 88-year-old female with history of diastolic dysfunction, left bundle branch block, history of melanoma, asthma, chronic unspecified polyneuropathy, fibromyalgia, SEBASTIAN compliant with CPAP, urge incontinence, hypertension, hyperlipidemia presented to the ED earlier today accompanied by her daughter for evaluation of chest pain, dyspnea, malaise, and myalgias ongoing for 1 week. She reportedly had been in [place] on family vacation and returned on Wednesday. She previously was ambulating with a cane but due to symptoms, was using a wheelchair while on vacation. She has felt clammy with sweats but has not taken her temperature. No one else sick at home. No sore throat, congestion, abdominal pain, nausea, vomiting, diarrhea, dysuria, hematuria, increased frequency/urgency, lightheadedness, palpitations. She denies any radiation of the chest pain reports worsens with deep inspiration. Has not been coughing. He has also had increased swelling in the bilateral lower extremities. Her daughter reports last night the dyspnea was so bad she was having difficulty speaking and felt she was blue around the lips. Of note, while in [place], was hospitalized overnight as she hit the bilateral lower extremities on the edge of her wheelchair and sustained a laceration to the right lower extremity that was unable to be closed with suture and required wound VAC placement which remains in place. She also developed hematoma of the left lower extremity with bulla. She is very weak and able to answer questions but is not forthcoming with history. Her daughter providers history at bedside. Per EMS< was 60% on RA placed on nonrebreather but with increased wob and was placed on cpap. Cpap removed during exam and desatting to 86% with increased wob, cpap replaced. She was febrile to 100.4, tachycardic to 123, tachypneic. Initially with soft blood pressures but normotensive at 113/58 on admission. She has a leukocytosis of chronic macrocytic anemia with H/H consistent with baseline. Renal function baseline, electrolyte levels normal. Lactic acid 2.3, repeat 1.5. Initial troponin 214, repeat 174. BNP 873. VBG with pH 7.29, pCO2 52, bicarb 25. Urinalysis with 3+ leukocytes, significant urinary sediment, trace bacteria, negative nitrites. CTA chest negative for pulmonary embolism but shows marked dilatation of the main pulmonary trunk, compatible with pulmonary arterial hypertension. She also has scattered extensive ground-glass opacities in the bilateral lungs compatible with interstitial pulmonary edema due to CHF. There is also complete consolidation of the bilateral lower lobes with air bronchograms and bilateral moderate pleural effusions compatible with pneumonia. EKG shows unspecified rhythm, known left bundle branch block, rate [address]/depressions. In the ED, received 325 mg aspirin, Tylenol, IVF, ceftriaxone, Zithromax. Review of Systems 2 Review of Systems: Yes all other systems are reviewed and are negative [facility] Medical History (Updated 12/27/23 @ 11:43 by LESLIE Blair) Hyperlipidemia Hypertension Left bundle branch block Urge incontinence SEBASTIAN on CPAP Fibromyalgia Chronic polyneuropathy History of melanoma Asthma Diastolic dysfunction Social History Unable to assess alcohol history related to: Unable to respond and Unknown Use of substances other than those prescribed or required for medical reasons: Unable to respond Advance Directives: No Advance Directives Information Provided: No Do you have a plan to hurt others: No Plan Meds Allergies Allergy/AdvReac Type Severity Reaction Status Date / Time No Known Allergies Allergy Verified 12/27/23 06:57 Home Medications ?Medication ?Instructions ?Recorded ?Confirmed ?Last Taken ?Type albuterol sulfate 90 mcg/actuation 2 inh inhalation DAILY PRN SOB 12/27/23 12/27/23 Unknown History aerosol inhaler amlodipine 10 mg tablet 10 mg PO DAILY 12/27/23 12/27/23 12/26/23 History budesonide-formoterol HFA 160 2 puff inhalation BID 12/27/23 12/27/23 12/26/23 History mcg-4.5 mcg/actuation aerosol inhaler calcium carbonate 600 mg-vitamin 1 tab PO BID 12/27/23 12/27/23 12/26/23 History D3 5 mcg (200 unit) tablet (Calcium 600 + D(3)) chlorthalidone 25 mg tablet 12.5 mg PO DAILY 12/27/23 12/27/23 12/26/23 History furosemide 20 mg tablet 20 mg PO DAILY PRN swelling 12/27/23 12/27/23 Unknown History gabapentin 300 mg capsule 300 mg PO TID 12/27/23 12/27/23 12/26/23 History lamotrigine 100 mg tablet 100 mg PO BID 12/27/23 12/27/23 12/26/23 History lamotrigine 25 mg tablet 50 mg PO BID 12/27/23 12/27/23 12/26/23 History lisinopril 10 mg tablet 10 mg PO DAILY 12/27/23 12/27/23 12/26/23 History omeprazole 20 mg capsule,delayed 20 mg PO BID 12/27/23 12/27/23 12/26/23 History release vibegron 75 mg tablet (Gemtesa) 75 mg PO DAILY 12/27/23 12/27/23 12/26/23 History vit C 250 mg-vit E 90 mg-zinc 40 1 tab PO BID 12/27/23 12/27/23 12/26/23 History mg-copper 1 [id number] capsule (PreserVision AREDS-2) Physical Exam 2 Vital Signs and Narrative: Vital Signs: Last Vital Signs Temp 100.4 F 12/27/23 07:19 Pulse 72 12/27/23 10:08 Resp 20 12/27/23 11:19 BP 113/58 L 12/27/23 10:08 Pulse Ox 94 12/27/23 10:08 O2 Del Method CPAP 12/27/23 10:08 O2 Flow Rate 28 12/27/23 07:58 FiO2 28 12/27/23 10:08 BMI result Body Mass Index 31.8 Constitutional - fatigued, unwell appearing, No apparent distress on cpap Eyes - PERRLA, EOMI Cardiovascular - S1S2, RRR, 2+ ble edema extending to the thighs, +JVD Respiratory - Normal lung expansion, Normal respiratory effort on cpap but with increased WOB and mild distress without cpap, diffuse bilateral crackles Gastrointestinal - NT / ND; +BS; No rebound or guarding Extremities - no calf tenderness bilaterally, no swelling Skin - Warm/Dry Neurological - Alert & oriented x3 Psychological - Appropriate affect Results Labs 12/27/23 06:49 12/27/23 06:49 Labs: Laboratory Results - last 24 hr 12/27/23 12/27/23 12/27/23 06:48 06:49 08:21 MCV 100.3 H MCH 31.4 MCHC 31.3 RDW 13.4 Plt Count 264 MPV 9.8 Immature Gran % (Auto) 3.3 H Neut % (Auto) 73.6 H Lymph % (Auto) 12.8 L [place] % (Auto) 6.4 Eos % (Auto) 3.3 Baso % (Auto) 0.6 Lymph # (Auto) 2.0 [place] # (Auto) 1.0 Eos # (Auto) 0.5 H Baso # (Auto) 0.1 Abs Immat Gran (auto) 0.52 H Absolute Neuts (auto) 11.8 H Absolute Nucleated RBC 0.000 Nucleated RBC % (auto) 0.0 Hold Purple Top SEE NOTE D-Dimer High Sensitivty 747 VBG pH 7.29 L VBG pCO2 52 VBG pO2 46 VBG HCO3 25 VBG O2 Saturation 63.0 VBG Base Excess -1.0 Anion Gap 15 Estim Creat Clear Calc 33.4 Estimated GFR 45 Random Glucose 195 H Lactic Acid 2.3 H* Lactic Acid F/U @ 2Hr Calcium 9.4 Total Bilirubin 0.5 AST 19 ALT 17 Alkaline Phosphatase 96 Troponin I High Sens 214.6 H* B-Natriuretic Peptide 873 H Total Protein 6.5 Albumin 3.9 Urine Color Yellow Urine Appearance Cloudy Urine pH 5.5 Ur Specific [place] 1.020 Urine Protein 30 (1+) H Urine Glucose (UA) Negative Urine Ketones Negative Urine Blood Negative Urine Nitrite Negative Ur Leukocyte Esterase Large (3+) H Urine RBC 0-2 Urine WBC >50 H Ur Squamous Epith Cells 0-2 Urine Bacteria Trace Hyaline Casts 3-5 12/27/23 09:47 MCV MCH MCHC RDW Plt Count MPV Immature Gran % (Auto) Neut % (Auto) Lymph % (Auto) [place] % (Auto) Eos % (Auto) Baso % (Auto) Lymph # (Auto) [place] # (Auto) Eos # (Auto) Baso # (Auto) Abs Immat Gran (auto) Absolute Neuts (auto) Absolute Nucleated RBC Nucleated RBC % (auto) Hold Purple Top SEE NOTE D-Dimer High Sensitivty VBG pH VBG pCO2 VBG pO2 VBG HCO3 VBG O2 Saturation VBG Base Excess Anion Gap Estim Creat Clear Calc Estimated GFR Random Glucose Lactic Acid Lactic Acid F/U @ 2Hr 1.5 Calcium Total Bilirubin AST ALT Alkaline Phosphatase Troponin I High Sens 174.2 H* B-Natriuretic Peptide Total Protein Albumin Urine Color Urine Appearance Urine pH Ur Specific [place] Urine Protein Urine Glucose (UA) Urine Ketones Urine Blood Urine Nitrite Ur Leukocyte Esterase Urine RBC Urine WBC Ur Squamous Epith Cells Urine Bacteria Hyaline Casts Imaging Radiologist's Impressions: Impressions Chest X-Ray 12/27/23 07:44 IMPRESSION: Cardiomegaly with pulmonary vascular congestion and small pleural effusions. Findings are suggestive of CHF. Chest CTA 12/27/23 09:30 IMPRESSION: 1. No evidence of pulmonary embolism. 2. Marked dilatation of the main pulmonary trunk, compatible with pulmonary arterial hypertension. 3. Scattered extensive groundglass opacities in bilateral lungs, compatible with interstitial pulmonary edema due to congestive heart failure. 4. Almost complete consolidation of bilateral lower lobes with air bronchograms and Bilateral moderate pleural effusions, compatible with pneumonia. 5. Status post cholecystectomy. 6. Atherosclerotic calcifications in proximal bilateral renal arteries, causing significant stenosis at the origin of left renal artery. Fleischner guidelines were followed. VTE: negative Assessment and Plan (1) Respiratory distress: Status: Acute (2) Acute hypoxemic respiratory failure: Status: Acute (3) Acute exacerbation of congestive heart failure: Status: Acute (4) Community acquired pneumonia: Status: Acute Plan 88-year-old female with history of diastolic dysfunction, left bundle branch block, history of melanoma, asthma, chronic unspecified polyneuropathy, fibromyalgia, SEBASTIAN compliant with CPAP, urge incontinence, hypertension, hyperlipidemia admitted for management of acute bilateral pneumonia and CHF exacerbation with respiratory distress and acute hypoxemic respiratory failure #ACute bilateral pneumonia with severe sepsis sepsis -CTA chest shows complete consolidation of the bilateral lower lobes with air bronchograms and bilateral moderate pleural effusions compatible with pneumonia -leukocytosis 16, tachycardic, tachypneic, lactic acid resolved with IV fluids. Blood cultures pending -IV ceftriaxone azithromycin (initiated 12/26) -DuoNebs q.4h while awake -guaifenesin p.r.n. -strep pneumo antigen, Legionella antigen, sputum culture pending. Check MRSA nasal swab but low suspicion for MRSA -follow CBC, cultures # acute exacerbation of congestive heart failure -+JVD, CTA chest with pulmonary edema, bilateral pleural effusions (possibly chf vs parapneumonic) -IV Lasix 20 mg daily -cardiac diet -strict I&O with PureWick -daily weights -echocardiogram -follow renal function/lytes # acute hypoxemic respiratory failure with respiratory distress -due to above -continue CPAP, wean as tolerated #Asymptomatic bacteriuria -UA with 3+ leukocytes, positive urinary sediment, trace bacteria. Negative nitrites -on ceftriaxone as above -follow CBC, cultures # mild intermittent asthma -no exacerbation, no indication for steroids at this time -DuoNebs # left bundle branch block -known # urge incontinence -hold gym Cara for diuresis # mood disorder -continue home meds # chronic polyneuropathy, unspecified -continue gabapentin # hypertension -resume amlodipine, chlorthalidone a.m. #LLE hematoma w/ bulla -traumatic, wound care consult #RLE laceration -hospitalized overnight while in [place], unable to close fully with sutures, wound VAC in place -plastic surgery notes in chart -wound care consult -will need wound care outpt # chronic macrocytic anemia -H/H baseline, above transfusion threshold -folic acid and vitamin B12 levels within normal limits at [facility] from 10/20 # CKD stage 3 -renal function baseline DVT prophylaxis-Lovenox DNR/DNI per [facility] form Patient requires inpatient stay at least 2 midnights for management of acute hypoxemic respiratory failure with respiratory distress due to bilateral pneumonia and CHF exacerbation and will require ongoing CPAP use, IV antibiotics, IV diuresis, and close monitoring of hemodynamics and respiratory status to monitor for and prevent decompensation Quality Stroke Does the patient have a stroke diagnosis?: No VTE Prior VTE?: No VTE Risk Level:: Medical - moderate - high VTE Device Contraindication: Treatment Not Indicated VTE Drug Contraindication: N/A - Med Ordered
[2023-12-27 12:12] LABS: Influenza A PCR NEGATIVE (Negative); Influenza B PCR NEGATIVE (Negative); Resp Syncy Virus RNA Qual PCR NEGATIVE (Negative); SARS COV2 PCR INHOUSE NEGATIVE (Negative)
[2023-12-27 12:16] LABS: Procalcitonin 0.05 ng/mL
[2023-12-27] MEDS: Albuterol/Iprat 2.5/0.5MG 3 ML AMPUL.NEB INHALE ×3 (12:25→20:50)
[2023-12-27] MEDS: Furosemide 40 MG/4 ML VIAL 20 MG IVPUSH (13:07)
--- NOTE | 2023-12-27 13:11 | PC.NURSE ---
Pt asleep on CPAP, bedside ECHO at this time Daughter at bedside
--- NOTE | 2023-12-27 14:36 | PC.NURSE ---
Small soft bowel movement and urine incontinence noted despite purewick, 200ml in suction container. Purewick in place and 200ml output
[2023-12-27] MEDS: Omeprazole 20 MG CAPSULE.DR PO (15:41)
[2023-12-27] MEDS: Acetaminophen 325 MG TABLET 650 MG PO (15:42)
[2023-12-27] MEDS: Gabapentin 300 MG CAPSULE PO ×2 (15:42→19:09)
[2023-12-27] MEDS: 0.9 % Sodium Chloride Flush 3 ML SYRINGE IVFLUSH (16:16)
[2023-12-27] MEDS: Lidocaine 4 % Patch ADH..PATCH 1 PATCH TRANSDERMA (18:32)
[2023-12-27] MEDS: oxyCODONE HCl Immed Release 5 MG TABLET 2.5 MG PO (18:37)
[2023-12-27] MEDS: Calcium + Vitamin D 250 MG TABLET 500 MG PO (19:09)
[2023-12-27] MEDS: lamoTRIgine 25 MG TABLET 50 MG PO (19:09)
[2023-12-27] MEDS: lamoTRIgine 100 MG TABLET PO (19:09)
[2023-12-28] VITALS (10 sets, daily range): BP systolic 111–139; BP diastolic 57–75; PULSE 69–95; RESP 16–24; TEMP 36.3–37; O2SAT 90–98
[2023-12-28 05:50] LABS: MANUAL DIFF FLAG NO
[2023-12-28 05:59] LABS: Basophils Absolute Auto 0.1 X10*3/uL (0.0-0.2); Basophils Percent Auto 0.8 % (0-2); Eosinophils Absolute Auto 0.5 X10*3/uL (0.0-0.4); Eosinophils Percent Auto 5.3 % (0-4); Hematocrit 23.8 % (37.0-47.0); Hemoglobin 7.6 g/dl (12.0-16.0); Imm Gran Abs Auto 0.14 X10*3/uL (0.00-0.03); Imm Gran Pct Auto 1.7 % (0.0-0.4); Lymphocytes Absolute Auto 1.3 X10*3/uL (1.2-4.9); Lymphocytes Percent Auto 15.9 % (20-40); Mean Corpuscular HGB Conc 31.9 g/dl (31.0-35.0); Mean Corpuscular Hemoglobin 31.4 pg (27.0-33.0); Mean Corpuscular Volume 98.3 fL (80.0-98.0); Mean Platelet Volume 9.8 fL (9.4-12.3); Monocytes Absolute Auto 0.7 X10*3/uL (0.1-1.2); Monocytes Percent Auto 8.1 % (2-11); Neutrophils Absolute Auto 5.8 x10*3/uL (2.0-8.3); Neutrophils Percent Auto 68.2 % (45-73); Platelet Count 185 X10*3/uL (160-400); Red Blood Count 2.42 X10*6/uL (4.20-5.50); Red Cell Distribution Width 13.6 % (11.0-16.0); White Blood Count 8.4 X10*3/uL (4.8-10.8)
[2023-12-28 06:07] LABS: Anion Gap 11 (12-20); Blood Urea Nitrogen 23 mg/dL (9-16); Calcium 9.1 mg/dL (8.4-10.2); Carbon Dioxide 25 mmol/L (22-29); Chloride 108 mmol/L (96-108); Creatinine Clr Calc Pharmacy 48.2; Estimated Glomerular Filt Rate > 60; Glucose Random 113 mg/dL (60-115); Potassium 4.4 mmol/L (3.3-5.1); Sodium 140 mmol/L (135-145)
[2023-12-28] MEDS: Acetaminophen 325 MG TABLET 650 MG PO ×2 (06:38→14:41)
[2023-12-28] MEDS: Omeprazole 20 MG CAPSULE.DR PO ×2 (06:42→14:42)
[2023-12-28] MEDS: Gabapentin 300 MG CAPSULE PO ×3 (08:00→20:28)
[2023-12-28] MEDS: lamoTRIgine 25 MG TABLET 50 MG PO ×2 (08:00→20:28)
[2023-12-28] MEDS: oxyCODONE HCl Immed Release 5 MG TABLET 2.5 MG PO ×2 (08:00→20:34)
[2023-12-28] MEDS: hydroCHLOROthiazide 12.5 MG TABLET PO (08:00)
[2023-12-28] MEDS: lisinopriL 10 MG TABLET PO (08:00)
[2023-12-28] MEDS: amLODIPine Besylate 10 MG TABLET PO (08:00)
[2023-12-28] MEDS: Furosemide 40 MG/4 ML VIAL 20 MG IVPUSH (08:01)
[2023-12-28] MEDS: cefTRIAXone sodium 1 GM in 0.9 % Sodium Chloride 50 ML IV (08:01)
[2023-12-28] MEDS: Azithromycin 500 MG in 0.9 % Sodium Chloride 250 ML 125 MG IV (08:01)
[2023-12-28] MEDS: Lidocaine 4 % Patch ADH..PATCH 1 PATCH TRANSDERMA (08:02)
[2023-12-28] MEDS: Calcium + Vitamin D 250 MG TABLET 500 MG PO ×2 (08:02→20:28)
[2023-12-28] MEDS: 0.9 % Sodium Chloride Flush 3 ML SYRINGE IVFLUSH ×4 (08:02→20:28)
[2023-12-28] MEDS: lamoTRIgine 100 MG TABLET PO ×2 (08:04→20:28)
[2023-12-28] MEDS: Albuterol/Iprat 2.5/0.5MG 3 ML AMPUL.NEB INHALE ×4 (08:11→19:52)
--- NOTE | 2023-12-28 09:27 | MHC.CM.PN ---
IMM 12/27. Pt lives at home on the first floor, her daughter lives above her in the second floor. Pt uses a cane, but pt reported that recently she was using a wheelchair due to injuring her leg. Pt had [facility] services in the past and would be willing to resume those services if necessary upon discharge. Pts daughter will transport her home. HCP on file and verified. PCP: Janna Sibley
--- NOTE | 2023-12-28 11:09 | P.CONCA_ITS ---
History of Present Illness History of Present Illness Date of Service: 12/28/23 Requesting physician: Kingsley Barnes Chief complaint: sob, CHF Narrative: 88-year-old female presenting with acute hypoxemic respiratory failure. She has been diagnosed with pneumonia but also has some congestive heart failure by chest x-ray. She underwent echocardiography today which has shown evidence of systolic anterior motion of anterior mitral valve leaflet with LVOT obstruction. She has [id number] mitral valve regurgitation. We are seeing her for this issue. She is saying that she is feeling better than when she presented. She has been on IV diuretics with-800 cc fluid balance. She is on thiazide diuretic as well as amlodipine 10 mg daily. She is anemic with hemoglobin of 7.6. [facility] Past Medical History Medical History (Updated 12/28/23 @ 12:[address] MD) Hyperlipidemia Hypertension Left bundle branch block Urge incontinence SEBASTIAN on CPAP Fibromyalgia Chronic polyneuropathy History of melanoma Asthma Diastolic dysfunction Social History Social History Household Members: Children Housing: House Do you presently have visiting nurse or other home services: No Unable to assess alcohol history related to: Unable to respond and Unknown Patient Tobacco Use Status: Never used Tobacco Advance Directives Date on File: 12/27/23 service: No Meds Allergies Allergy/AdvReac Type Severity Reaction Status Date / Time hydroxyzine Allergy Hives Verified 12/27/23 16:48 imipramine Allergy Hives Verified 12/27/23 16:48 Active Medications: Current Medications Acetaminophen (Acetaminophen 325 Mg Tablet) 650 mg PO Q6H PRN PRN Reason: Pain, Mild (Pain Scale 1-3), fever or headache Last Admin: 12/28/23 06:38 Dose: 650 mg Albuterol/Ipratropium (Albuterol/Iprat 2.5/0.5mg 3 Ml Ampul.Neb) 3 ml INHALE RQ4H WHILE AWAKE [facility] Last Admin: 12/28/23 08:11 Dose: 3 ml Amlodipine Besylate (Amlodipine Besylate 10 Mg Tablet) 10 mg PO DAILY [facility]; Protocol Last Admin: 12/28/23 08:00 Dose: 10 mg Calcium Carbonate (Calcium Carbonate 750 Mg Tab.Chew) 750 mg PO Q4H PRN PRN Reason: Heartburn Calcium Carbonate/Cholecalciferol (Calcium + Vitamin D 250 Mg Tablet) 500 mg PO BID [facility] Last Admin: 12/28/23 08:02 Dose: 500 mg Fluticasone/Vilanterol (Fluticasone/Vilanterol 200/25 Blst.W.Dev) 1 puff INHALE RDAILY [facility] Last Admin: 12/28/23 08:12 Dose: Not Given Furosemide (Furosemide 40 Mg/4 Ml Vial) 20 mg IVPUSH DAILY [facility]; Protocol Last Admin: 12/28/23 08:01 Dose: 20 mg Gabapentin (Gabapentin 300 Mg Capsule) 300 mg PO TID [facility] Last Admin: 12/28/23 08:00 Dose: 300 mg Hydrochlorothiazide (Hydrochlorothiazide 12.5 Mg Tablet) 12.5 mg PO DAILY [facility] Last Admin: 12/28/23 08:00 Dose: 12.5 mg Ceftriaxone Sodium 1 gm/ (Sodium Chloride) 50 mls @ 100 mls/hr IV Q24H [facility] Last Infusion: 12/28/23 08:56 Dose: Infused Azithromycin 500 mg/ Sodium (Chloride) 250 mls @ 125 mls/hr IV Q24H [facility] Last Admin: 12/28/23 08:01 Dose: 125 mls/hr Lamotrigine (Lamotrigine 25 Mg Tablet) 50 mg PO BID [facility] Last Admin: 12/28/23 08:00 Dose: 50 mg Lamotrigine (Lamotrigine 100 Mg Tablet) 100 mg PO BID [facility] Last Admin: 12/28/23 08:04 Dose: 100 mg Lidocaine (Lidocaine 4 % Patch Adh..Patch) 1 patch TRANSDERMA DAILY [facility]; Protocol Last Admin: 12/28/23 08:02 Dose: 1 patch Lisinopril (Lisinopril 10 Mg Tablet) 10 mg PO DAILY [facility]; Protocol Last Admin: 12/28/23 08:00 Dose: 10 mg Magnesium Hydroxide (Milk Of Magnesia 30 Ml Oral.Susp) 30 ml PO DAILY PRN PRN Reason: Constipation Melatonin (Melatonin 3 Mg Tablet) 6 mg PO BEDTIME PRN PRN Reason: Insomnia Omeprazole (Omeprazole 20 Mg Capsule.Dr) 20 mg PO BID@0630,1630 [facility] Last Admin: 12/28/23 06:42 Dose: 20 mg Oxycodone HCl (Oxycodone Hcl Immed Release 5 Mg Tablet) 2.5 mg PO Q6H PRN PRN Reason: moderate pain Last Admin: 12/28/23 08:00 Dose: 2.5 mg Sodium Chloride (0.9 % Sodium Chloride Flush 3 Ml Syringe) [facility] Last Admin: 12/28/23 08:02 Dose: 3 ml Home Medications ?Medication ?Instructions ?Recorded ?Confirmed ?Last Taken ?Type albuterol sulfate 90 mcg/actuation 2 inh inhalation DAILY PRN SOB 12/27/23 12/27/23 Unknown History aerosol inhaler amlodipine 10 mg tablet 10 mg PO DAILY 12/27/23 12/27/23 12/26/23 History budesonide-formoterol HFA 160 2 puff inhalation BID 12/27/23 12/27/23 12/26/23 History mcg-4.5 mcg/actuation aerosol inhaler calcium carbonate 600 mg-vitamin 1 tab PO BID 12/27/23 12/27/23 12/26/23 History D3 5 mcg (200 unit) tablet (Calcium 600 + D(3)) chlorthalidone 25 mg tablet 12.5 mg PO DAILY 12/27/23 12/27/23 12/26/23 History furosemide 20 mg tablet 20 mg PO DAILY PRN swelling 12/27/23 12/27/23 Unknown History gabapentin 300 mg capsule 300 mg PO TID 12/27/23 12/27/23 12/26/23 History lamotrigine 100 mg tablet 100 mg PO BID 12/27/23 12/27/23 12/26/23 History lamotrigine 25 mg tablet 50 mg PO BID 12/27/23 12/27/23 12/26/23 History lisinopril 10 mg tablet 10 mg PO DAILY 12/27/23 12/27/23 12/26/23 History omeprazole 20 mg capsule,delayed 20 mg PO BID 12/27/23 12/27/23 12/26/23 History release vibegron 75 mg tablet (Gemtesa) 75 mg PO DAILY 12/27/23 12/27/23 12/26/23 History vit C 250 mg-vit E 90 mg-zinc 40 1 tab PO BID 12/27/23 12/27/23 12/26/23 History mg-copper 1 [id number] capsule (PreserVision AREDS-2) Physical Exam 2 Vital Signs: Vital Signs: Last Vital Signs Temp 98.1 F 12/28/23 07:19 Pulse 69 12/28/23 08:13 Resp 18 12/28/23 08:13 BP 139/64 12/28/23 07:19 Pulse Ox 98 12/28/23 07:19 O2 Del Method Nasal Cannula 12/28/23 07:19 O2 Flow Rate 3 12/28/23 07:19 FiO2 28 12/27/23 14:34 BMI result Body Mass Index 32.3 GENERAL APPEARANCE: Ill-appearing. On supplemental oxygen. NECK: no carotid bruit, pleasant jugular venous distention. SKIN: no suspicious lesions, warm and dry. HEART: Systolic murmur all over the precordium, regular rate and rhythm. LUNGS: Crackles bilateral bases. ABDOMEN: soft, nontender. EXTREMITIES: Mild edema. PERIPHERAL PULSES: equal. NEUROLOGIC: No gross deficits, AAO X 3 Objective Labs and Meds 12/28/23 05:35 12/28/23 05:35 Lab results: Laboratory Results - last 24 hr 12/27/23 12/27/23 12/28/23 09:47 11:13 05:35 WBC 8.4 RBC 2.42 L Hgb 7.6 L Hct 23.8 L MCV 98.3 H MCH 31.4 MCHC 31.9 RDW 13.6 Plt Count 185 D MPV 9.8 Immature Gran % (Auto) 1.7 H Neut % (Auto) 68.2 Lymph % (Auto) 15.9 L [place] % (Auto) 8.1 Eos % (Auto) 5.3 H Baso % (Auto) 0.8 Lymph # (Auto) 1.3 [place] # (Auto) 0.7 Eos # (Auto) 0.5 H Baso # (Auto) 0.1 Abs Immat Gran (auto) 0.14 H Absolute Neuts (auto) 5.8 Absolute Nucleated RBC 0.000 Nucleated RBC % (auto) 0.0 Sodium 140 Potassium 4.4 Chloride 108 Carbon Dioxide 25 Anion Gap 11 L BUN 23 H Creatinine 0.79 Estim Creat Clear Calc 48.2 Estimated GFR > 60 Random Glucose 113 Calcium 9.1 Procalcitonin 0.05 Influenza Type A (PCR) NEGATIVE Influenza Type B (PCR) NEGATIVE RSV RNA Qual (PCR) NEGATIVE SARS-CoV-2 RNA (RT-PCR) NEGATIVE Assessment and Plan (1) Acute exacerbation of congestive heart failure: Status: Acute (2) Dynamic left ventricular outflow obstruction: Status: Acute Plan 88-year-old female presenting for shortness of breath who has been diagnosed with pneumonia and is currently on antibiotics. She also has congestive heart failure. Echocardiography is showing systolic anterior motion of the mitral valve leaflet with LVOT obstruction. Clinically she is volume overloaded. Stop thiazide diuretic and amlodipine. Increase Lasix to 40 mg IV daily. LVOT obstruction worsens with vasodilation and decreasing preload. Currently she does look volume overloaded so preload is not a problem. With pneumonia and infection vasodilation and decrease afterload can happen which can lead to worsening LVOT obstruction. I would avoid vasodilators currently and would hold amlodipine and CHRISTI inhibitor for now. She does not have significant left ventricular hypertrophy or asymmetric septal hypertrophy. She is known to bone drier in [place] Dr. Feldman and will follow-up with her after discharge. Thank you for allowing me to participate in the care of your patient. Please feel free to contact me if you have any questions. Procedures Date of Service Date of Service: 12/28/23
--- NOTE | 2023-12-28 11:56 | P.PNIM_ITS ---
Subjective Subjective Date of Service: 12/28/23 Interval History: sob, but improved Physical Exam 2 Vital Signs: Vital Signs: Last Vital Signs Temp 98.1 F 12/28/23 07:19 Pulse 69 12/28/23 08:13 Resp 18 12/28/23 08:13 BP 139/64 12/28/23 07:19 Pulse Ox 98 12/28/23 07:19 O2 Del Method Nasal Cannula 12/28/23 07:19 O2 Flow Rate 3 12/28/23 07:19 FiO2 28 12/27/23 14:34 BMI result Body Mass Index 32.3 General: AO X 3, no acute distress Resp: CTA bilateral, no accessory muscles used CVS: S1,S2,RRR, murmur GI: soft, non tender, non distended Neuro: motor grossly intact, alert Psych: appropriate affect, appropriate insight LLE wound wrapped Objective Data Active Medications Acetaminophen (Acetaminophen 325 Mg Tablet) 650 mg PO Q6H PRN PRN Reason: Pain, Mild (Pain Scale 1-3), fever or headache Last Admin: 12/28/23 06:38 Dose: 650 mg Documented By: SYLVIA Albuterol/Ipratropium (Albuterol/Iprat 2.5/0.5mg 3 Ml Ampul.Neb) 3 ml INHALE RQ4H WHILE AWAKE [facility] Last Admin: 12/28/23 08:11 Dose: 3 ml Documented By: DAMIEN Calcium Carbonate (Calcium Carbonate 750 Mg Tab.Chew) 750 mg PO Q4H PRN PRN Reason: Heartburn Calcium Carbonate/Cholecalciferol (Calcium + Vitamin D 250 Mg Tablet) 500 mg PO BID [facility] Last Admin: 12/28/23 08:02 Dose: 500 mg Documented By: CELI Fluticasone/Vilanterol (Fluticasone/Vilanterol 200/25 Blst.W.Dev) 1 puff INHALE RDAILY [facility] Last Admin: 12/28/23 08:12 Dose: Not Given Documented By: DAMIEN Non-Admin Reason: Med Not Available Furosemide (Furosemide 40 Mg/4 Ml Vial) 40 mg IVPUSH DAILY [facility]; Protocol Gabapentin (Gabapentin 300 Mg Capsule) 300 mg PO TID [facility] Last Admin: 12/28/23 08:00 Dose: 300 mg Documented By: CELI Ceftriaxone Sodium 1 gm/ (Sodium Chloride) 50 mls @ 100 mls/hr IV Q24H [facility] Last Infusion: 12/28/23 08:56 Dose: Infused Documented By: CELI Azithromycin 500 mg/ Sodium (Chloride) 250 mls @ 125 mls/hr IV Q24H [facility] Last Admin: 12/28/23 08:01 Dose: 125 mls/hr Documented By: CELI Lamotrigine (Lamotrigine 25 Mg Tablet) 50 mg PO BID [facility] Last Admin: 12/28/23 08:00 Dose: 50 mg Documented By: CELI Lamotrigine (Lamotrigine 100 Mg Tablet) 100 mg PO BID [facility] Last Admin: 12/28/23 08:04 Dose: 100 mg Documented By: CELI Lidocaine (Lidocaine 4 % Patch Adh..Patch) 1 patch TRANSDERMA DAILY [facility]; Protocol Last Admin: 12/28/23 08:02 Dose: 1 patch Documented By: CELI Lisinopril (Lisinopril 10 Mg Tablet) 10 mg PO DAILY [facility]; Protocol Last Admin: 12/28/23 08:00 Dose: 10 mg Documented By: CELI Magnesium Hydroxide (Milk Of Magnesia 30 Ml Oral.Susp) 30 ml PO DAILY PRN PRN Reason: Constipation Melatonin (Melatonin 3 Mg Tablet) 6 mg PO BEDTIME PRN PRN Reason: Insomnia Omeprazole (Omeprazole 20 Mg Capsule.Dr) 20 mg PO BID@0630,1630 [facility] Last Admin: 12/28/23 06:42 Dose: 20 mg Documented By: SYLVIA Oxycodone HCl (Oxycodone Hcl Immed Release 5 Mg Tablet) 2.5 mg PO Q6H PRN PRN Reason: moderate pain Last Admin: 12/28/23 08:00 Dose: 2.5 mg Documented By: CELI Sodium Chloride (0.9 % Sodium Chloride Flush 3 Ml Syringe) 3 ml IVFLUSH QSHIFT [facility] Last Admin: 12/28/23 08:02 Dose: 3 ml Documented By: CELI Labs 12/28/23 05:35 12/28/23 05:35 Labs: Laboratory Results - last 24 hr 12/27/23 12/27/23 12/28/23 09:47 11:13 05:35 MCV 98.3 H MCH 31.4 MCHC 31.9 RDW 13.6 Plt Count 185 D MPV 9.8 Immature Gran % (Auto) 1.7 H Neut % (Auto) 68.2 Lymph % (Auto) 15.9 L [place] % (Auto) 8.1 Eos % (Auto) 5.3 H Baso % (Auto) 0.8 Lymph # (Auto) 1.3 [place] # (Auto) 0.7 Eos # (Auto) 0.5 H Baso # (Auto) 0.1 Abs Immat Gran (auto) 0.14 H Absolute Neuts (auto) 5.8 Absolute Nucleated RBC 0.000 Nucleated RBC % (auto) 0.0 Anion Gap 11 L Estim Creat Clear Calc 48.2 Estimated GFR > 60 Random Glucose 113 Calcium 9.1 Procalcitonin 0.05 Influenza Type A (PCR) NEGATIVE Influenza Type B (PCR) NEGATIVE RSV RNA Qual (PCR) NEGATIVE SARS-CoV-2 RNA (RT-PCR) NEGATIVE Microbiology Microbiology Results: Microbiology 12/27/23 Unknown Urine Culture - Preliminary Urine Catheterized - Straight Catheter No growth to date. 12/27/23 06:48 Blood Culture - Preliminary Blood - Venous No growth after 24 hours. 12/27/23 06:48 Blood Culture - Preliminary Blood - Venous No growth after 24 hours. Assessment and Plan (1) Respiratory distress: Status: Acute Plan 88F PMH chronic diastolic dysfunction, left bundle branch block, history of melanoma, chronic unspecified polyneuropathy, fibromyalgia, SEBASTIAN compliant with CPAP, urge incontinence, hypertension, hyperlipidemia presented with sob Severe sepsis and acute hypoxic respiratory failure due to pneumonia and acute on chronic diastolic CHF Continue ceftriaxone azithromycin, follow-up cultures Continue IV Lasix, increased to 40 mg daily Cardiology appreciated, echo with LVOT obstruction, normal EF, moderate MR, mild pulmonary hypertension, recommended to discontinue amlodipine and hydrochlorothiazide Continue to wean oxygen Unspecified acute on chronic anemia Monitor Asymptomatic bacteriuria Unclear significance, already on ceftriaxone, follow-up cultures Right lower extremity laceration Wound care eval CKD 3 Stable DVT prophylaxis-Lovenox DNR/DNI per MOLST form reason for continued hospitalization: IV diuresis, weaning O2 Quality Stroke Does the patient have a stroke diagnosis?: No VTE Prior VTE?: No VTE Risk Level:: Medical - moderate - high VTE Device Contraindication: Treatment Not Indicated VTE Drug Contraindication: N/A - Med Ordered
--- NOTE | 2023-12-28 14:08 | HO.WOUND ---
Addendum entered by Neelam Ratliff RN 12/28/23 16:41: At 1630 followed up for Right Leg wound - Daughter at bedside. Pt and daughter agreeable to JAMIN removal as Daughter was able to confirm JAMIN dressing only changed on 12/24/23 so JAMIN & life to end in the next 24 hrs. Very painful and difficult to remove given full dried dressing - adhesive remover used. Pt able to tolerate but considerable pain noted. The wound bed reveals approximately 18 sutures on either end of the skin tear. well approximated and no observed oozing. Etiology: Traumatic Skin tear / laceration Measurements: 20cm x 1.5cm x 0.1cm Wound Bed: no skin flap noted - wound bed with adherent marbled moist yellow slough and pink / red wound bed Drainage / Odor: none assessed - No odor Edges: ?irregular and fragile [place] wound: Mild erythema and ecchymosis noted - ? No Induration, Fluctuance or Warmth noted Pain: tender to touch Goals of Treatment: Moist wound healing and antimicrobial properties with Durafiber AG Topical recommendations: 1. Turn and Reposition every 2 hours and as needed for patient comfort.? Use pillows or wedges to support off loading positions. 2. Off Load all bony prominences with use of pillows and heel boots if needed.? Apply Preventative foams where needed. ? 3. Monitor for incontinence and moisture control, use barrier creams when needed for prevention and treatment. 4. Provide adequate and supplemental nutrition.? 5. Order low air loss mattress. 6. When applicable maintain blood glucose levels per Providers order. 7. Left Lower Leg - Elevate both lower legs on pillows and float heels. Apply xeroform, cover with ABD pad, wrap with gauze wrap followed by keli wrap. Change every other day. 8. Right Lower Leg - Elevate both lower legs on pillows and float heels. Cleanse with NS moist gauze. Apply skin prep to periwound. Apply Durafiber AG to wound bed followed by ABD Pad, Gauze wrap. Change every other day. Recommend follow up out patient Wound Clinic at [address] [place] [id number] and to call for an appointment at time of discharge. [phone].? Original Note: Wound Consult: Initial 88yr old? admitted to [facility] on 12/27/23 - See progress notes and H&P for detailed history.? Wound consult placed for Right Leg PICO7 in place and Left lower Leg Hematoma.? Patient agreeable to assessment and photo documentation.?Arrival to bedside patient was able to recall the incident that occurred overseas in [place] on approximately 12/22/23 to lead to PICO7 placement. In addition to the Left lower leg Hematoma at occurred on Wednesday12/26/23 where she sought treatment at an OSH. See chart review for details. Lateral View Left Leg Hematoma Left Lower Leg Etiology: ??Hematoma - resolving Measurements: 7cm x 6cm x 0cm Wound Bed: intact tissue dark purple pigmentation noted central mild flutuance noted Drainage / Odor: none Edges: ?irregular [place] wound: Mild erythema and ecchymosis noted - ? No Induration, Fluctuance or Warmth noted Pain: tender to touch Goals of Treatment: ? Xeroform for less traume when dressing and gauze and keli wrap to protect from trauma and pressure to limit hematoma growth Right Lower Leg JAMIN [address] - currently working despite dressing being full. Date of application unclear to patient and patients daughter they report it was either placed 12/22/23 or 12/24/23 in [place]. The PICO7 was applied for a traumatic skin tear / laceration the daughter reports it was 25cm in size. At this time patient refused removal - called and spoke with daughter she will arrive to unit and we will discuss with patient and she will try to clarify when the PICO7 was applied. If it was on 12/22/23 meaning it will stop working today into tomorrow depending on the time of application. Patient and daughter made aware of this at this time daughter is agreeable to NPWT dressing removal for assessment and next step determination the patient is not. Will continue to follow up with the patient later today or tomorrow. Recommendations: 1. Turn and Reposition every 2 hours and as needed for patient comfort.? Use pillows or wedges to support off loading positions. 2. Off Load all bony prominences with use of pillows and heel boots if needed.? Apply Preventative foams where needed. ? 3. Monitor for incontinence and moisture control, use barrier creams when needed for prevention and treatment. 4. Provide adequate and supplemental nutrition.? 5. Order or Continue low air loss mattress. 6. When applicable maintain blood glucose levels per Providers order. 7. Left Lower Leg - Elevate both lower legs on pillows and float heels. Apply xeroform, cover with ABD pad, wrap with gauze wrap followed by keli wrap. Change every other day. Re-consult wound care Nurse for wound deterioration or wound changes.
[2023-12-28] MEDS: Melatonin 3 MG TABLET 6 MG PO (20:28)
[2023-12-29] VITALS (13 sets, daily range): BP systolic 109–151; BP diastolic 51–69; PULSE 73–93; RESP 18–20; TEMP 36.2–37; O2SAT 90–98
--- NOTE | 2023-12-29 | ECG_ITS ---
Test Reason : chest pain Blood Pressure : / mmHG Vent. Rate : 076 BPM Atrial Rate : 076 BPM P-R Int : 168 ms QRS Dur : 146 ms QT Int : 410 ms P-R-T Axes : 036 005 172 degrees QTc Int : 461 ms Normal sinus rhythm with sinus arrhythmia Left bundle branch block Abnormal ECG When compared with ECG of 27-DEC-2023 06:40, Vent. rate has decreased BY 40 BPM T wave inversion less evident in Inferior leads Referred By: Mayo Adhikari Electronically Signed By:Tavo Street
--- NOTE | 2023-12-29 04:20 | PC.NURSE ---
Pt AOx3, able to make needs known. Pt transitioned to CPAP 2 HS, O2 applied by respiratory therapist. Throughout night pt removing CPAP, replaced and encouraged to keep it on. Purewick in place. Call pfeiffer within reach. Bed alarm on.
[2023-12-29] MEDS: Omeprazole 20 MG CAPSULE.DR PO ×2 (05:26→15:45)
[2023-12-29 08:31] LABS: Hematocrit 24.4 % (37.0-47.0); Mean Corpuscular HGB Conc 32.8 g/dl (31.0-35.0); Mean Corpuscular Hemoglobin 32.3 pg (27.0-33.0); Mean Corpuscular Volume 98.4 fL (80.0-98.0); Mean Platelet Volume 9.9 fL (9.4-12.3); Platelet Count 216 X10*3/uL (160-400); Red Blood Count 2.48 X10*6/uL (4.20-5.50); Red Cell Distribution Width 13.6 % (11.0-16.0); White Blood Count 8.3 X10*3/uL (4.8-10.8)
[2023-12-29 08:44] LABS: Anion Gap 11 (12-20); Blood Urea Nitrogen 19 mg/dL (9-16); Calcium 9.4 mg/dL (8.4-10.2); Carbon Dioxide 28 mmol/L (22-29); Chloride 105 mmol/L (96-108); Estimated Glomerular Filt Rate > 60; Glucose Fasting 104 mg/dL (60-99); Potassium 4.4 mmol/L (3.3-5.1); Sodium 140 mmol/L (135-145)
[2023-12-29] MEDS: Lidocaine 4 % Patch ADH..PATCH 1 PATCH TRANSDERMA (08:58)
[2023-12-29] MEDS: cefTRIAXone sodium 1 GM in 0.9 % Sodium Chloride 50 ML IV (08:58)
[2023-12-29] MEDS: Gabapentin 300 MG CAPSULE PO ×3 (08:59→19:57)
[2023-12-29] MEDS: 0.9 % Sodium Chloride Flush 3 ML SYRINGE IVFLUSH ×2 (08:59→15:46)
[2023-12-29] MEDS: Furosemide 40 MG/4 ML VIAL IVPUSH (08:59)
[2023-12-29] MEDS: Calcium + Vitamin D 250 MG TABLET 500 MG PO ×2 (08:59→19:57)
[2023-12-29] MEDS: lamoTRIgine 100 MG TABLET PO ×2 (08:59→19:57)
[2023-12-29] MEDS: lamoTRIgine 25 MG TABLET 50 MG PO ×2 (08:59→19:57)
[2023-12-29] MEDS: Fluticasone/Vilanterol 200/25 BLST.W.DEV 1 PUFF INHALE (09:09)
[2023-12-29] MEDS: Azithromycin 500 MG in 0.9 % Sodium Chloride 250 ML 125 MG IV (09:51)
[2023-12-29] MEDS: Morphine Sulfate 2 MG/ML CARTRIDGE 0.5 MG IVPUSH (10:57)
--- NOTE | 2023-12-29 11:03 | PM.PNCARD ---
Subjective Subjective Date of Service: 12/29/23 Interval history: Seen examined at bedside. Feeling better. Physical Exam Vital Signs: Last Vital Signs Temp 97.2 F 12/29/23 07:58 Pulse 77 12/29/23 09:09 Resp 18 12/29/23 09:09 BP 145/69 H 12/29/23 08:59 Pulse Ox 96 12/29/23 07:58 O2 Del Method Nasal Cannula 12/29/23 07:58 O2 Flow Rate 2 12/29/23 07:58 FiO2 28 12/27/23 14:34 BMI result Body Mass Index 32.3 GENERAL APPEARANCE: In no acute distress. On supplemental oxygen. NECK: no carotid bruit, mild jugular venous distention. SKIN: no suspicious lesions, warm and dry. HEART: Systolic murmur all over the precordium, regular rate and rhythm. LUNGS: Crackles bilateral bases. ABDOMEN: soft, nontender. EXTREMITIES: Trace edema. PERIPHERAL PULSES: equal. NEUROLOGIC: No gross deficits, AAO X 3 Objective Labs and Meds 12/29/23 07:56 12/29/23 07:56 Lab results: Laboratory Results - last 24 hr 12/29/23 07:56 WBC 8.3 RBC 2.48 L Hgb 8.0 L Hct 24.4 L MCV 98.4 H MCH 32.3 MCHC 32.8 RDW 13.6 Plt Count 216 MPV 9.9 Absolute Nucleated RBC 0.000 Nucleated RBC % (auto) 0.0 Sodium 140 Potassium 4.4 Chloride 105 Carbon Dioxide 28 Anion Gap 11 L BUN 19 H Creatinine 0.81 Estim Creat Clear Calc 47.0 Estimated GFR > 60 Fasting Glucose 104 H Calcium 9.4 Progress Note: A&P Assessment and plan (1) Dynamic left ventricular outflow obstruction: Status: Acute (2) Acute hypoxemic respiratory failure: Status: Acute (3) Acute exacerbation of congestive heart failure: Status: Acute Plan Pleasant 88-year-old female who has pneumonia and congestive heart failure. Echocardiography has shown systolic anterior motion of anterior mitral valve leaflet. There is [id number] mitral regurgitation. Decrease preload and afterload can lead to worsening of LVOT obstruction. Amlodipine was held. She is being diuresed and is improving. She is on treatment for pneumonia. Overall she is clinically improving. Continue diuretics IV for now. Thank you for allowing me to participate in the care of your patient. Please feel free to contact me if you have any questions. Time Spent With Patient Time: Total time managing care of this patient today ____ minutes. Progress Note: Quality Stroke Does the patient have a stroke diagnosis?: No Procedures Date of Service Date of Service: 12/29/23
[2023-12-29] MEDS: Albuterol/Iprat 2.5/0.5MG 3 ML AMPUL.NEB INHALE ×3 (11:30→18:57)
--- NOTE | 2023-12-29 11:45 | HO.PM.IMPN ---
Subjective Subjective Date of Service: 12/29/23 Interval History: sob is better, she has been having intermittent chest pain but not new per daughter Physical Exam Vital Signs: Vital Signs: Last Vital Signs Temp 98.1 F 12/29/23 11:25 Pulse 93 12/29/23 11:37 Resp 20 12/29/23 11:37 BP 132/62 12/29/23 11:25 Pulse Ox 93 12/29/23 11:25 O2 Del Method Nasal Cannula 12/29/23 11:25 O2 Flow Rate 2 12/29/23 11:25 FiO2 28 12/27/23 14:34 BMI result Body Mass Index 32.3 GENERAL APPEARANCE: In no acute distress. On supplemental oxygen. NECK: no carotid bruit, mild jugular venous distention. SKIN: no suspicious lesions, warm and dry. HEART: Systolic murmur all over the precordium, regular rate and rhythm. LUNGS: Crackles bilateral bases. ABDOMEN: soft, nontender. EXTREMITIES: Trace edema. PERIPHERAL PULSES: equal. NEUROLOGIC: No gross deficits, AAO X 3 Objective Data Active Medications Acetaminophen (Acetaminophen 325 Mg Tablet) 650 mg PO Q6H PRN PRN Reason: Pain, Mild (Pain Scale 1-3), fever or headache Last Admin: 12/28/23 14:41 Dose: 650 mg Documented By: CELI Albuterol/Ipratropium (Albuterol/Iprat 2.5/0.5mg 3 Ml Ampul.Neb) 3 ml INHALE RQ4H WHILE AWAKE [facility] Last Admin: 12/29/23 11:30 Dose: 3 ml Documented By: MARK Calcium Carbonate (Calcium Carbonate 750 Mg Tab.Chew) 750 mg PO Q4H PRN PRN Reason: Heartburn Calcium Carbonate/Cholecalciferol (Calcium + Vitamin D 250 Mg Tablet) 500 mg PO BID [facility] Last Admin: 12/29/23 08:59 Dose: 500 mg Documented By: CAREY Fluticasone/Vilanterol (Fluticasone/Vilanterol 200/25 Blst.W.Dev) 1 puff INHALE RDAILY [facility] Last Admin: 12/29/23 09:09 Dose: 1 puff Documented By: NESHA Furosemide (Furosemide 40 Mg/4 Ml Vial) 40 mg IVPUSH DAILY [facility]; Protocol Last Admin: 12/29/23 08:59 Dose: 40 mg Documented By: CAREY Gabapentin (Gabapentin 300 Mg Capsule) 300 mg PO TID [facility] Last Admin: 12/29/23 08:59 Dose: 300 mg Documented By: CAREY Ceftriaxone Sodium 1 gm/ (Sodium Chloride) 50 mls @ 100 mls/hr IV Q24H [facility] Last Infusion: 12/29/23 09:37 Dose: Infused Documented By: CAREY Azithromycin 500 mg/ Sodium (Chloride) 250 mls @ 125 mls/hr IV Q24H [facility] Last Admin: 12/29/23 09:51 Dose: 125 mls/hr Documented By: CAREY Lamotrigine (Lamotrigine 25 Mg Tablet) 50 mg PO BID [facility] Last Admin: 12/29/23 08:59 Dose: 50 mg Documented By: CAREY Lamotrigine (Lamotrigine 100 Mg Tablet) 100 mg PO BID [facility] Last Admin: 12/29/23 08:59 Dose: 100 mg Documented By: CAREY Lidocaine (Lidocaine 4 % Patch Adh..Patch) 1 patch TRANSDERMA DAILY [facility]; Protocol Last Admin: 12/29/23 08:58 Dose: 1 patch Documented By: CAREY Magnesium Hydroxide (Milk Of Magnesia 30 Ml Oral.Susp) 30 ml PO DAILY PRN PRN Reason: Constipation Melatonin (Melatonin 3 Mg Tablet) 6 mg PO BEDTIME PRN PRN Reason: Insomnia Last Admin: 12/28/23 20:28 Dose: 6 mg Documented By: JANET Omeprazole (Omeprazole 20 Mg Leny.) 20 mg PO BID@0630,1630 [facility] Last Admin: 12/29/23 05:26 Dose: 20 mg Documented By: JANET Oxycodone HCl (Oxycodone Hcl Immed Release 5 Mg Tablet) 2.5 mg PO Q6H PRN PRN Reason: moderate pain Last Admin: 12/28/23 20:34 Dose: 2.5 mg Documented By: JANET Sodium Chloride (0.9 % Sodium Chloride Flush 3 Ml Syringe) 3 ml IVFLUSH QSHIFT [facility] Last Admin: 12/29/23 08:59 Dose: 3 ml Documented By: CRAEY Labs 12/29/23 07:56 12/29/23 07:56 Labs: Laboratory Results - last 24 hr 12/29/23 07:56 MCV 98.4 H MCH 32.3 MCHC 32.8 RDW 13.6 Plt Count 216 MPV 9.9 Absolute Nucleated RBC 0.000 Nucleated RBC % (auto) 0.0 Anion Gap 11 L Estim Creat Clear Calc 47.0 Estimated GFR > 60 Fasting Glucose 104 H Calcium 9.4 Microbiology Microbiology Results: Microbiology 12/27/23 Unknown Urine Culture - Preliminary Urine Catheterized - Straight Catheter No growth to date. 12/27/23 06:48 Blood Culture - Preliminary Blood - Venous No growth after 48 hours. 12/27/23 06:48 Blood Culture - Preliminary Blood - Venous No growth after 48 hours. Assessment and Plan (1) Respiratory distress: Status: Acute Plan 88F PMH chronic diastolic dysfunction, left bundle branch block, history of melanoma, chronic unspecified polyneuropathy, fibromyalgia, SEBASTIAN compliant with CPAP, urge incontinence, hypertension, hyperlipidemia presented with sob Severe sepsis and acute hypoxic respiratory failure due to pneumonia and acute on chronic diastolic CHF Continue ceftriaxone azithromycin, follow-up cultures,change to ceftin at discharge acute on chronic diastolic heart failure Continue IV Lasix, increased to 40 mg daily Cardiology appreciated, echo with LVOT obstruction, normal EF, moderate MR, mild pulmonary hypertension, recommended to discontinue amlodipine and hydrochlorothiazide. ok to continue Lisinopril Continue to wean oxygen Unspecified acute on chronic anemia--stable Monitor Asymptomatic bacteriuria Unclear significance, already on ceftriaxone, follow-up cultures negative Right lower extremity laceration Wound care eval CKD 3B Stable DVT prophylaxis-Lovenox DNR/DNI per [facility] form reason for continued hospitalization: IV diuresis, weaning O2 plan of care discussed with daughter at the bedside Quality Stroke Does the patient have a stroke diagnosis?: No VTE Prior VTE?: No VTE Risk Level:: Medical - moderate - high VTE Device Contraindication: Treatment Not Indicated VTE Drug Contraindication: N/A - Med Ordered
[2023-12-29] MEDS: lisinopriL 10 MG TABLET PO (12:45)
--- NOTE | 2023-12-29 14:03 | MHC.CM.PN ---
Pt not yet ready for DC, receiving IV diuresis for CHF. DCP is home with services if recommended.
[2023-12-30] VITALS (8 sets, daily range): BP systolic 99–129; BP diastolic 56–70; PULSE 74–86; RESP 14–18; TEMP 36.3–36.8; O2SAT 93–96
[2023-12-30] MEDS: 0.9 % Sodium Chloride Flush 3 ML SYRINGE IVFLUSH ×4 (00:49→21:34)
[2023-12-30] MEDS: Omeprazole 20 MG CAPSULE.DR PO ×2 (06:34→15:37)
[2023-12-30] MEDS: oxyCODONE HCl Immed Release 5 MG TABLET 2.5 MG PO (06:34)
[2023-12-30] MEDS: Fluticasone/Vilanterol 200/25 BLST.W.DEV 1 PUFF INHALE (07:59)
[2023-12-30] MEDS: Albuterol/Iprat 2.5/0.5MG 3 ML AMPUL.NEB INHALE ×4 (07:59→20:37)
[2023-12-30] MEDS: cefTRIAXone sodium 1 GM in 0.9 % Sodium Chloride 50 ML IV (08:04)
[2023-12-30] MEDS: lamoTRIgine 25 MG TABLET 50 MG PO ×2 (08:04→21:30)
[2023-12-30] MEDS: lamoTRIgine 100 MG TABLET PO ×2 (08:06→21:30)
[2023-12-30] MEDS: Lidocaine 4 % Patch ADH..PATCH 1 PATCH TRANSDERMA (08:06)
[2023-12-30] MEDS: Gabapentin 300 MG CAPSULE PO ×3 (08:07→21:30)
[2023-12-30] MEDS: Furosemide 40 MG/4 ML VIAL IVPUSH (08:07)
[2023-12-30] MEDS: Calcium + Vitamin D 250 MG TABLET 500 MG PO ×2 (08:10→21:30)
[2023-12-30 09:50] LABS: Anion Gap 13 (12-20); Blood Urea Nitrogen 23 mg/dL (9-16); Calcium 9.6 mg/dL (8.4-10.2); Carbon Dioxide 28 mmol/L (22-29); Chloride 103 mmol/L (96-108); Creatinine Clr Calc Pharmacy 41.8; Estimated Glomerular Filt Rate 58; Glucose Random 131 mg/dL (60-115); Potassium 3.7 mmol/L (3.3-5.1); Sodium 140 mmol/L (135-145)
[2023-12-30] MEDS: Azithromycin 500 MG in 0.9 % Sodium Chloride 250 ML 125 MG IV (11:10)
--- NOTE | 2023-12-30 13:10 | HO.PM.IMPN ---
Subjective Subjective Date of Service: 12/30/23 Interval History: seen and examined this morning follow up for pneumonia, CHF overall breathing improving Review of Systems Review of Systems: Yes all other systems are reviewed and are negative Constitutional Constitutional: Denies chills and Denies fever(s) Cardiovascular Cardiovascular: Denies chest pain Gastrointestinal Gastrointestinal: Denies abdominal pain, Denies nausea and Denies vomiting Physical Exam Vital Signs: Vital Signs: Last Vital Signs Temp 97.5 F 12/30/23 11:33 Pulse 83 12/30/23 11:33 Resp 18 12/30/23 11:33 BP 119/58 L 12/30/23 11:33 Pulse Ox 96 12/30/23 11:33 O2 Del Method Nasal Cannula 12/30/23 11:33 O2 Flow Rate 2 12/30/23 11:33 FiO2 28 12/27/23 14:34 BMI result Body Mass Index 32.3 Const: General: comfortable, no acute distress, alert and awake Nutritional Appearance: overweight Orientation/consciousness: patient oriented x3 Resp: Other: scattered wheeze Effort & Inspection: normal respiratory effort, able to speak in complete sentences, no respiratory distress and no use of accessory muscles Cardio: Rate: regular rate Heart sounds: Murmur heart sound present GI: Inspection: No distended Palpation (GI): Soft to palpation and nontender Neuro: General: patient oriented x3, moves all extremities and CN's II-XI intact bilaterally Extrem: General: Yes no pedal edema Objective Data Active Medications Acetaminophen (Acetaminophen 325 Mg Tablet) 650 mg PO Q6H PRN PRN Reason: Pain, Mild (Pain Scale 1-3), fever or headache Last Admin: 12/28/23 14:41 Dose: 650 mg Documented By: CELI Albuterol/Ipratropium (Albuterol/Iprat 2.5/0.5mg 3 Ml Ampul.Neb) 3 ml INHALE RQ4H WHILE AWAKE [facility] Last Admin: 12/30/23 11:22 Dose: 3 ml Documented By: MELIZA Calcium Carbonate (Calcium Carbonate 750 Mg Tab.Chew) 750 mg PO Q4H PRN PRN Reason: Heartburn Calcium Carbonate/Cholecalciferol (Calcium + Vitamin D 250 Mg Tablet) 500 mg PO BID [facility] Last Admin: 12/30/23 08:10 Dose: 500 mg Documented By: DELISA Fluticasone/Vilanterol (Fluticasone/Vilanterol 200/25 Blst.W.Dev) 1 puff INHALE RDAILY [facility] Last Admin: 12/30/23 07:59 Dose: 1 puff Documented By: MARK Furosemide (Furosemide 40 Mg/4 Ml Vial) 40 mg IVPUSH DAILY [facility]; Protocol Last Admin: 12/30/23 08:07 Dose: 40 mg Documented By: DELISA Gabapentin (Gabapentin 300 Mg Capsule) 300 mg PO TID [facility] Last Admin: 12/30/23 08:07 Dose: 300 mg Documented By: DELISA Ceftriaxone Sodium 1 gm/ (Sodium Chloride) 50 mls @ 100 mls/hr IV Q24H [facility] Last Infusion: 12/30/23 10:47 Dose: Infused Documented By: ALEXEIR Azithromycin 500 mg/ Sodium (Chloride) 250 mls @ 125 mls/hr IV Q24H [facility] Last Admin: 12/30/23 11:10 Dose: 125 mls/hr Documented By: EDLISA Lamotrigine (Lamotrigine 25 Mg Tablet) 50 mg PO BID [facility] Last Admin: 12/30/23 08:04 Dose: 50 mg Documented By: DELISA Lamotrigine (Lamotrigine 100 Mg Tablet) 100 mg PO BID [facility] Last Admin: 12/30/23 08:06 Dose: 100 mg Documented By: DELISA Lidocaine (Lidocaine 4 % Patch Adh..Patch) 1 patch TRANSDERMA DAILY [facility]; Protocol Last Admin: 12/30/23 08:06 Dose: 1 patch Documented By: DELISA Lisinopril (Lisinopril 10 Mg Tablet) 10 mg PO DAILY [facility]; Protocol Last Admin: 12/29/23 12:45 Dose: 10 mg Documented By: CAREY Magnesium Hydroxide (Milk Of Magnesia 30 Ml Oral.Susp) 30 ml PO DAILY PRN PRN Reason: Constipation Melatonin (Melatonin 3 Mg Tablet) 6 mg PO BEDTIME PRN PRN Reason: Insomnia Last Admin: 12/28/23 20:28 Dose: 6 mg Documented By: JANET Omeprazole (Omeprazole 20 Mg Capsule.Dr) 20 mg PO BID@0630,1630 [facility] Last Admin: 12/30/23 06:34 Dose: 20 mg Documented By: GINA Oxycodone HCl (Oxycodone Hcl Immed Release 5 Mg Tablet) 2.5 mg PO Q6H PRN PRN Reason: moderate pain Last Admin: 12/30/23 06:34 Dose: 2.5 mg Documented By: GINA Sodium Chloride (0.9 % Sodium Chloride Flush 3 Ml Syringe) 3 ml IVFLUSH QSHIFT [facility] Last Admin: 12/30/23 08:12 Dose: 3 ml Documented By: DELISA Labs 12/29/23 07:56 12/30/23 09:18 Labs: Laboratory Results - last 24 hr 12/30/23 09:18 Hold Purple Top SEE NOTE Anion Gap 13 Estim Creat Clear Calc 41.8 Estimated GFR 58 Random Glucose 131 H Calcium 9.6 Microbiology Microbiology Results: Microbiology 12/27/23 Unknown Urine Culture - Preliminary Urine Catheterized - Straight Catheter Gram negative melina Assessment and Plan (1) Dynamic left ventricular outflow obstruction: Status: Acute (2) Acute hypoxemic respiratory failure: Status: Acute Plan 88F PMH chronic diastolic dysfunction, left bundle branch block, history of melanoma, chronic unspecified polyneuropathy, fibromyalgia, SEBASTIAN compliant with CPAP, urge incontinence, hypertension, hyperlipidemia presented with sob Severe sepsis and acute hypoxic respiratory failure due to pneumonia and acute on chronic diastolic CHF white count resolved Continue ceftriaxone azithromycin started 12/27 follow-up cultures,change to ceftin at discharge acute on chronic diastolic heart failure Continue IV Lasix, 40 mg daily Cardiology appreciated, echo with LVOT obstruction, normal EF, moderate MR, mild pulmonary hypertension, recommended to discontinue amlodipine HCTZ on hold lisinopril resumed, but BP soft this am, will hold Continue to wean oxygen Unspecified acute on chronic anemia--stable Monitor UTI on ceftriaxone as above UCx growing GNR follow final culture sensitiviteis Right lower extremity laceration sustained as outpatient Wound care following, management as per wound care note- will need outpatient wound care follow up left renal artery stenosis seen on imaging outpatient follow up CKD 3B Stable DVT prophylaxis-Lovenox DNR/DNI per [facility] form reason for continued hospitalization: IV diuresis, weaning O2 plan of care discussed with daughter at the bedside Quality Stroke Does the patient have a stroke diagnosis?: No VTE Prior VTE?: No VTE Risk Level:: Medical - moderate - high VTE Device Contraindication: Treatment Not Indicated VTE Drug Contraindication: N/A - Med Ordered
--- NOTE | 2023-12-30 13:41 | PM.PNCARD ---
Subjective Subjective Date of Service: 12/30/23 Interval history: Seen and examined at bedside. detailed discussion with the daughter at bedside. It appears she has been fatigued and not feeling well for long time. She also has been experiencing some chest discomfort off and on with activities along with shortness of breath. Breathing worsened significantly before she presented to the emergency department. Physical Exam Vital Signs: Last Vital Signs Temp 97.5 F 12/30/23 11:33 Pulse 83 12/30/23 11:33 Resp 18 12/30/23 11:33 BP 119/58 L 12/30/23 11:33 Pulse Ox 96 12/30/23 11:33 O2 Del Method Nasal Cannula 12/30/23 11:33 O2 Flow Rate 2 12/30/23 11:33 FiO2 28 12/27/23 14:34 BMI result Body Mass Index 32.3 GENERAL APPEARANCE: In no acute distress. On supplemental oxygen. NECK: no carotid bruit,no jugular venous distention. SKIN: no suspicious lesions, warm and dry. HEART: Systolic murmur all over the precordium, regular rate and rhythm. LUNGS: CTABL ABDOMEN: soft, nontender. EXTREMITIES: Trace edema. PERIPHERAL PULSES: equal. NEUROLOGIC: No gross deficits, AAO X 3 Objective Labs and Meds 12/29/23 07:56 12/30/23 09:18 Lab results: Laboratory Results - last 24 hr 12/30/23 09:18 Hold Purple Top SEE NOTE Sodium 140 Potassium 3.7 Chloride 103 Carbon Dioxide 28 Anion Gap 13 BUN 23 H Creatinine 0.91 Estim Creat Clear Calc 41.8 Estimated GFR 58 Random Glucose 131 H Calcium 9.6 Progress Note: A&P Assessment and plan (1) Dynamic left ventricular outflow obstruction: Status: Acute (2) Acute hypoxemic respiratory failure: Status: Acute (3) Acute exacerbation of congestive heart failure: Status: Acute Plan Pleasant 88-year-old female who has pneumonia and congestive heart failure. Echocardiography has shown systolic anterior motion of anterior mitral valve leaflet. There is [id number] mitral regurgitation. Decrease preload and afterload can lead to worsening of LVOT obstruction. Amlodipine was held. She is being diuresed and is improving. She is on treatment for pneumonia. Overall she is clinically improving. Change to PO Lasix 40 mg. Stop chlorthalidone. Thank you for allowing me to participate in the care of your patient. Please feel free to contact me if you have any questions. Time Spent With Patient Time: Total time managing care of this patient today ____ minutes. Progress Note: Quality Stroke Does the patient have a stroke diagnosis?: No Procedures Date of Service Date of Service: 12/30/23
[2023-12-31] VITALS (15 sets, daily range): BP systolic 102–145; BP diastolic 46–72; PULSE 68–112; RESP 17–20; TEMP 36.2–36.8; O2SAT 92–97; BMI 31.3
[2023-12-31] MEDS: Acetaminophen 325 MG TABLET 650 MG PO ×2 (03:36→12:46)
[2023-12-31] MEDS: Omeprazole 20 MG CAPSULE.DR PO ×2 (05:45→18:08)
[2023-12-31] MEDS: Fluticasone/Vilanterol 200/25 BLST.W.DEV 1 PUFF INHALE (07:35)
[2023-12-31] MEDS: Albuterol/Iprat 2.5/0.5MG 3 ML AMPUL.NEB INHALE ×3 (07:35→15:04)
[2023-12-31] MEDS: Furosemide 40 MG TABLET PO (09:46)
[2023-12-31] MEDS: lamoTRIgine 25 MG TABLET 50 MG PO ×2 (09:46→20:29)
[2023-12-31] MEDS: lamoTRIgine 100 MG TABLET PO ×2 (09:46→20:29)
[2023-12-31] MEDS: cefTRIAXone sodium 1 GM in 0.9 % Sodium Chloride 50 ML IV (09:46)
[2023-12-31] MEDS: Lidocaine 4 % Patch ADH..PATCH 1 PATCH TRANSDERMA (09:47)
--- NOTE | 2023-12-31 10:21 | PM.PNCARD ---
Subjective Subjective Date of Service: 12/31/23 Interval history: Seen and examined at bedside. Denying CP. On supplemental oxygen. Physical Exam Vital Signs: Last Vital Signs Temp 97.6 F 12/31/23 07:57 Pulse 112 H 12/31/23 09:48 Resp 18 12/31/23 07:57 BP 122/55 L 12/31/23 09:48 Pulse Ox 94 12/31/23 09:48 O2 Del Method Nasal Cannula 12/31/23 07:57 O2 Flow Rate 2 12/31/23 07:57 FiO2 28 12/27/23 14:34 BMI result Body Mass Index 31.3 GENERAL APPEARANCE: In no acute distress. On supplemental oxygen. NECK: no carotid bruit,no jugular venous distention. SKIN: no suspicious lesions, warm and dry. HEART: Systolic murmur all over the precordium, regular rate and rhythm. LUNGS: CTABL ABDOMEN: soft, nontender. EXTREMITIES: Trace edema. PERIPHERAL PULSES: equal. NEUROLOGIC: No gross deficits, AAO X 3 Objective Labs and Meds 12/29/23 07:56 12/30/23 09:18 Progress Note: A&P Assessment and plan (1) Dynamic left ventricular outflow obstruction: Status: Acute (2) Acute hypoxemic respiratory failure: Status: Acute (3) Acute exacerbation of congestive heart failure: Status: Acute Plan Pleasant 88-year-old female who has pneumonia and congestive heart failure. Echocardiography has shown systolic anterior motion of anterior mitral valve leaflet. There is [id number] mitral regurgitation. Decrease preload and afterload can lead to worsening of LVOT obstruction. Amlodipine was held. She is being diuresed and is improving. She is on treatment for pneumonia. Overall she is clinically improving. Change to PO Lasix 40 mg. Stop chlorthalidone. Give 1 unit of blood with 40 mg IV Lasix. Thank you for allowing me to participate in the care of your patient. Please feel free to contact me if you have any questions. Time Spent With Patient Time: Total time managing care of this patient today ____ minutes. Progress Note: Quality Stroke Does the patient have a stroke diagnosis?: No Procedures Date of Service Date of Service: 12/31/23
[2023-12-31] MEDS: Azithromycin 500 MG in 0.9 % Sodium Chloride 250 ML 125 MG IV (12:04)
--- NOTE | 2023-12-31 12:13 | MHC.CM.PN ---
CM met with pt. to discuss recommendation of PT of STR and ask her preferences. Pt. did not have a STR choice, and asked me to call her dtr. Dtr said her first choice is [facility]. Referrals out, anticipate DC to be on 01/01/24 per rounds.
[2023-12-31] MEDS: oxyCODONE HCl Immed Release 5 MG TABLET 2.5 MG PO ×2 (12:57→20:29)
[2023-12-31 13:44] LABS: Hematocrit 26.8 % (37.0-47.0); Hemoglobin 8.6 g/dl (12.0-16.0); Mean Corpuscular HGB Conc 32.1 g/dl (31.0-35.0); Mean Corpuscular Hemoglobin 31.6 pg (27.0-33.0); Mean Corpuscular Volume 98.5 fL (80.0-98.0); Mean Platelet Volume 9.8 fL (9.4-12.3); Platelet Count 235 X10*3/uL (160-400); Red Blood Count 2.72 X10*6/uL (4.20-5.50); Red Cell Distribution Width 14.1 % (11.0-16.0); White Blood Count 7.6 X10*3/uL (4.8-10.8)
--- NOTE | 2023-12-31 14:41 | HO.WOUND ---
Wound Consult: Follow up 88yr old? admitted to [facility] on 12/27/23 - See progress notes and H&P for detailed history.? Wound consult follow up for Right Leg and Left lower Leg Hematoma.? Patient agreeable to assessment and photo documentation.?Arrival to bedside patient and daughter recall me role in her care and were agreeable to my consult. The patient appears to be feeling better and she is able to hold her legs up for assessment so her strength is improving was able to recall the incident that occurred [place] in [place] on approximately 12/22/23 to lead to PICO7 placement. In addition to the Left lower leg Hematoma at occurred on Wednesday12/26/23 where she sought treatment at an OSH. See chart review for details. Patient overall reports improved pain in right lower leg. Left Lower Leg - continues to resolve Etiology: ??Hematoma - resolving Wound Bed: intact tissue dark purple pigmentation noted central mild flutuance noted - improving Drainage / Odor: none Edges: ?irregular [place] wound: Mild erythema and ecchymosis noted - ? No Induration, Fluctuance or Warmth noted Pain: tender to touch Goals of Treatment: ? Xeroform for less trauma when dressing and gauze to protect from trauma - keli no longer needed at this time. Right Lower Leg Etiology: Traumatic Skin tear / laceration Measurements: 20cm x 1.5cm x 0.1cm Wound Bed: no skin flap noted - wound bed with adherent marbled moist yellow slough and pink / red wound bed - increase red moist tissue from last assessment Drainage / Odor: small amount of yellow drainage noted on Durafiber - dried to wound bed - No odor Edges: ?irregular and fragile [place] wound: Mild erythema and ecchymosis noted - ? No Induration, Fluctuance or Warmth noted - decreased welling noted Pain: tender to touch Goals of Treatment: Moist wound healing and antimicrobial properties with Durafiber AG -will increase time to change to 3-4 days. Topical recommendations: 1. Turn and Reposition every 2 hours and as needed for patient comfort.? Use pillows or wedges to support off loading positions. 2. Off Load all bony prominences with use of pillows and heel boots if needed.? Apply Preventative foams where needed. ? 3. Monitor for incontinence and moisture control, use barrier creams when needed for prevention and treatment. 4. Provide adequate and supplemental nutrition.? 5. Order low air loss mattress. 6. When applicable maintain blood glucose levels per Providers order. 7. Left Lower Leg - Elevate both lower legs on pillows and float heels. Apply xeroform, cover with ABD pad, wrap with gauze wrap. Change every other day. 8. Right Lower Leg - Elevate both lower legs on pillows and float heels. Cleanse with NS moist gauze. Apply skin prep to periwound. Apply Durafiber AG to wound bed followed by ABD Pad, Gauze wrap. Change every 3 -4 days. Recommend follow up out patient Wound Clinic at [address] [place] [id number] and to call for an appointment at time of discharge. [phone].? Re-consult wound care Nurse for wound deterioration or wound changes.
[2023-12-31] MEDS: Gabapentin 300 MG CAPSULE PO ×2 (14:44→20:30)
--- NOTE | 2023-12-31 16:27 | HO.PM.IMPN ---
Subjective Subjective Date of Service: 12/31/23 Interval History: Seen and examined this morning Follow-up for pneumonia/CHF Denies chest pain, shortness of breath this time Review of Systems Review of Systems: Yes all other systems are reviewed and are negative Constitutional Constitutional: Denies chills and Denies fever(s) Cardiovascular Cardiovascular: Denies dyspnea Respiratory Respiratory: Denies cough and Denies dyspnea Gastrointestinal Gastrointestinal: Denies abdominal pain Physical Exam Vital Signs: Vital Signs: Last Vital Signs Temp 97.5 F 12/31/23 15:08 Pulse 76 12/31/23 15:08 Resp 18 12/31/23 15:08 BP 105/46 L 12/31/23 15:08 Pulse Ox 96 12/31/23 11:29 O2 Del Method Nasal Cannula 12/31/23 11:29 O2 Flow Rate 2 12/31/23 11:29 FiO2 28 12/27/23 14:34 BMI result Body Mass Index 31.3 Const: General: comfortable, no acute distress, alert and awake Nutritional Appearance: overweight Orientation/consciousness: patient oriented x3 Resp: Effort & Inspection: normal respiratory effort, able to speak in complete sentences, no respiratory distress and no use of accessory muscles Cardio: Rate: regular rate Heart sounds: Murmur heart sound present GI: Inspection: No distended Palpation (GI): Soft to palpation and nontender Neuro: General: patient oriented x3, moves all extremities and CN's II-XI intact bilaterally Extrem: General: Yes no pedal edema Objective Data Active Medications Acetaminophen (Acetaminophen 325 Mg Tablet) 650 mg PO Q6H PRN PRN Reason: Pain, Mild (Pain Scale 1-3), fever or headache Last Admin: 12/31/23 03:36 Dose: 650 mg Documented By: SYLVIA Albuterol/Ipratropium (Albuterol/Iprat 2.5/0.5mg 3 Ml Ampul.Neb) 3 ml INHALE RQ4H WHILE AWAKE [facility] Last Admin: 12/31/23 15:04 Dose: 3 ml Documented By: LOLIS Calcium Carbonate (Calcium Carbonate 750 Mg Tab.Chew) 750 mg PO Q4H PRN PRN Reason: Heartburn Calcium Carbonate/Cholecalciferol (Calcium + Vitamin D 250 Mg Tablet) 500 mg PO BID [facility] Last Admin: 12/31/23 10:25 Dose: Not Given Documented By: CARI Non-Admin Reason: unsure of last dose time Fluticasone/Vilanterol (Fluticasone/Vilanterol 200/25 Blst.W.Dev) 1 puff INHALE RDAILY [facility] Last Admin: 12/31/23 07:35 Dose: 1 puff Documented By: MINERVA Furosemide (Furosemide 40 Mg Tablet) 40 mg PO DAILY [facility]; Protocol Last Admin: 12/31/23 09:46 Dose: 40 mg Documented By: CARI Gabapentin (Gabapentin 300 Mg Capsule) 300 mg PO TID [facility] Last Admin: 12/31/23 14:44 Dose: 300 mg Documented By: CARI Ceftriaxone Sodium 1 gm/ (Sodium Chloride) 50 mls @ 100 mls/hr IV Q24H [facility] Last Infusion: 12/31/23 12:31 Dose: Infused Documented By: CARI Azithromycin 500 mg/ Sodium (Chloride) 250 mls @ 125 mls/hr IV Q24H [facility] Last Infusion: 12/31/23 15:01 Dose: Infused Documented By: CARI Lamotrigine (Lamotrigine 25 Mg Tablet) 50 mg PO BID [facility] Last Admin: 12/31/23 09:46 Dose: 50 mg Documented By: CARI Lamotrigine (Lamotrigine 100 Mg Tablet) 100 mg PO BID [facility] Last Admin: 12/31/23 09:46 Dose: 100 mg Documented By: CARI Lidocaine (Lidocaine 4 % Patch Adh..Patch) 1 patch TRANSDERMA DAILY [facility]; Protocol Last Admin: 12/31/23 09:47 Dose: 1 patch Documented By: CARI Lisinopril (Lisinopril 10 Mg Tablet) 10 mg PO DAILY [facility]; Protocol Magnesium Hydroxide (Milk Of Magnesia 30 Ml Oral.Susp) 30 ml PO DAILY PRN PRN Reason: Constipation Melatonin (Melatonin 3 Mg Tablet) 6 mg PO BEDTIME PRN PRN Reason: Insomnia Last Admin: 12/28/23 20:28 Dose: 6 mg Documented By: JANET Omeprazole (Omeprazole 20 Mg Capsule.Dr) 20 mg PO BID@0630,1630 [facility] Last Admin: 12/31/23 05:45 Dose: 20 mg Documented By: KATY Oxycodone HCl (Oxycodone Hcl Immed Release 5 Mg Tablet) 2.5 mg PO Q6H PRN PRN Reason: moderate pain Last Admin: 12/31/23 12:57 Dose: 2.5 mg Documented By: DEANA Sodium Chloride (0.9 % Sodium Chloride Flush 3 Ml Syringe) 3 ml IVFLUSH QSHIFT [facility] Last Admin: 12/31/23 12:05 Dose: Not Given Documented By: CARI Non-Admin Reason: IV Running Labs 12/31/23 13:20 12/30/23 09:18 Labs: Laboratory Results - last 24 hr 12/31/23 13:20 MCV 98.5 H MCH 31.6 MCHC 32.1 RDW 14.1 Plt Count 235 MPV 9.8 Absolute Nucleated RBC 0.000 Nucleated RBC % (auto) 0.0 Blood Type B Negative Antibody Screen NEGATIVE Crossmatch See Detail Microbiology Microbiology Results: Microbiology 12/27/23 Unknown Urine Culture - Final Urine Catheterized - Straight Catheter Escherichia coli Assessment and Plan (1) Dynamic left ventricular outflow obstruction: Status: Acute (2) Community acquired pneumonia: Status: Acute (3) Acute exacerbation of congestive heart failure: Status: Acute Plan 88F PMH chronic diastolic dysfunction, left bundle branch block, history of melanoma, chronic unspecified polyneuropathy, fibromyalgia, SEBASTIAN compliant with CPAP, urge incontinence, hypertension, hyperlipidemia presented with sob Severe sepsis and acute hypoxic respiratory failure due to pneumonia and acute on chronic diastolic CHF white count resolved Continue ceftriaxone azithromycin started 12/27 follow-up cultures, change to ceftin at discharge acute on chronic diastolic heart failure Continue IV Lasix, 40 mg daily Cardiology appreciated, echo with LVOT obstruction, normal EF, moderate MR, mild pulmonary hypertension, recommended to discontinue amlodipine HCTZ on hold lisinopril resumed, but BP remains soft, will hold Continue to wean oxygen Unspecified acute on chronic anemia--stable 1 unit of blood ordered per cardiology recommendation UTI on ceftriaxone as above UCx growing E coli sensitive to ceftriaxone follow final culture sensitiviteis Right lower extremity laceration sustained as outpatient Wound care following, management as per wound care note- will need outpatient wound care follow up left renal artery stenosis blood pressure controlled seen on imaging outpatient follow up CKD 3B Stable DVT prophylaxis-Lovenox DNR/DNI per [facility]OLST form reason for continued hospitalization: transfusion, weaning O2 PT - rec STR when medically ready plan of care discussed with daughter at the bedside Quality Stroke Does the patient have a stroke diagnosis?: No VTE Prior VTE?: No VTE Risk Level:: Medical - moderate - high VTE Device Contraindication: Treatment Not Indicated VTE Drug Contraindication: N/A - Med Ordered
[2023-12-31] MEDS: Furosemide 40 MG/4 ML VIAL IVPUSH (18:08)
[2023-12-31] MEDS: 0.9 % Sodium Chloride Flush 3 ML SYRINGE IVFLUSH ×2 (18:08→20:32)
[2023-12-31] MEDS: Calcium + Vitamin D 250 MG TABLET 500 MG PO (20:30)
[2023-12-31] MEDS: Melatonin 3 MG TABLET 6 MG PO (20:30)
[2024-01-01] VITALS (8 sets, daily range): BP systolic 107–141; BP diastolic 55–66; PULSE 59–77; RESP 16–20; TEMP 36.1–36.8; O2SAT 94–98
--- NOTE | 2024-01-01 03:44 | PC.NURSE ---
PT AOx3, able to make needs known. Pt declined to use her CPAP overnight, stating I told them I don't need it . She remains on 1L O2 NC. She desats to the low 80s when she removes the NC. Pt informed this RN you're giving me my gabapentin at the wrong times and it's making my feet very painful . Pt stated she takes that med at 0900, 1200, and 1700. Pharmacy contacted and times changed. Call pfeiffer within reach. Bed alarm on, camera in room.
[2024-01-01] MEDS: Omeprazole 20 MG CAPSULE.DR PO (06:02)
[2024-01-01 07:16] LABS: Hematocrit 29.3 % (37.0-47.0); Hemoglobin 9.9 g/dl (12.0-16.0); Mean Corpuscular HGB Conc 33.8 g/dl (31.0-35.0); Mean Corpuscular Hemoglobin 32.6 pg (27.0-33.0); Mean Corpuscular Volume 96.4 fL (80.0-98.0); Mean Platelet Volume 9.7 fL (9.4-12.3); Platelet Count 229 X10*3/uL (160-400); Red Blood Count 3.04 X10*6/uL (4.20-5.50); Red Cell Distribution Width 13.9 % (11.0-16.0); White Blood Count 7.2 X10*3/uL (4.8-10.8)
[2024-01-01] MEDS: Albuterol/Iprat 2.5/0.5MG 3 ML AMPUL.NEB INHALE ×3 (07:35→15:20)
[2024-01-01] MEDS: Fluticasone/Vilanterol 200/25 BLST.W.DEV 1 PUFF INHALE (07:55)
[2024-01-01] MEDS: cefTRIAXone sodium 1 GM in 0.9 % Sodium Chloride 50 ML IV (08:26)
[2024-01-01] MEDS: Furosemide 40 MG TABLET PO (08:26)
[2024-01-01] MEDS: lamoTRIgine 25 MG TABLET 50 MG PO (08:26)
[2024-01-01] MEDS: Gabapentin 300 MG CAPSULE PO ×2 (08:26→11:43)
[2024-01-01] MEDS: Calcium + Vitamin D 250 MG TABLET 500 MG PO (08:27)
[2024-01-01] MEDS: Lidocaine 4 % Patch ADH..PATCH 1 PATCH TRANSDERMA (08:27)
[2024-01-01] MEDS: 0.9 % Sodium Chloride Flush 3 ML SYRINGE IVFLUSH (08:27)
[2024-01-01] MEDS: lamoTRIgine 100 MG TABLET PO (08:27)
[2024-01-01] MEDS: Azithromycin 500 MG in 0.9 % Sodium Chloride 250 ML 125 MG IV (09:21)
--- NOTE | 2024-01-01 09:58 | PM.DS ---
DS: Providers Provider Date of Service: 01/01/24 Date of admission: 12/27/23 11:27 Date of discharge: 01/01/24 Primary care physician: Janna Sibley MD Consults: 12/27/23 11:31 Consult to Wound Care Routine Reason for consultation: laceration w/ wound vac in place RLE, hematoma w/ bullae LLE 12/28/23 12:02 Consult to Cardiology Routine Consulting Provider: [facility] Reason for consultation: chf Has provider been notified: Yes Attending physician on discharge: Richard Yip Discharging clinician: Sona Jacobsen DS: Diagnosis Discharge Diagnosis (1) Dynamic left ventricular outflow obstruction: Status: Acute (2) Community acquired pneumonia: Status: Acute (3) Acute exacerbation of congestive heart failure: Status: Acute DS: Summary Hospital Course Hospital Course: From H&P on the day of admission 88-year-old female with history of diastolic dysfunction, left bundle branch block, history of melanoma, asthma, chronic unspecified polyneuropathy, fibromyalgia, SEBASTIAN compliant with CPAP, urge incontinence, hypertension, hyperlipidemia presented to the ED earlier today accompanied by her daughter for evaluation of chest pain, dyspnea, malaise, and myalgias ongoing for 1 week. She reportedly had been in [place] on family vacation and returned on Wednesday. She previously was ambulating with a cane but due to symptoms, was using a wheelchair while on vacation. She has felt clammy with sweats but has not taken her temperature. No one else sick at home. No sore throat, congestion, abdominal pain, nausea, vomiting, diarrhea, dysuria, hematuria, increased frequency/urgency, lightheadedness, palpitations. She denies any radiation of the chest pain reports worsens with deep inspiration. Has not been coughing. He has also had increased swelling in the bilateral lower extremities. Her daughter reports last night the dyspnea was so bad she was having difficulty speaking and felt she was blue around the lips. Of note, while in [place], was hospitalized overnight as she hit the bilateral lower extremities on the edge of her wheelchair and sustained a laceration to the right lower extremity that was unable to be closed with suture and required wound VAC placement which remains in place. She also developed hematoma of the left lower extremity with bulla. She is very weak and able to answer questions but is not forthcoming with history. Her daughter providers history at bedside. Per EMS< was 60% on RA placed on nonrebreather but with increased wob and was placed on cpap. Cpap removed during exam and desatting to 86% with increased wob, cpap replaced. She was febrile to 100.4, tachycardic to 123, tachypneic. Initially with soft blood pressures but normotensive at 113/58 on admission. She has a leukocytosis of chronic macrocytic anemia with H/H consistent with baseline. Renal function baseline, electrolyte levels normal. Lactic acid 2.3, repeat 1.5. Initial troponin 214, repeat 174. BNP 873. VBG with pH 7.29, pCO2 52, bicarb 25. Urinalysis with 3+ leukocytes, significant urinary sediment, trace bacteria, negative nitrites. CTA chest negative for pulmonary embolism but shows marked dilatation of the main pulmonary trunk, compatible with pulmonary arterial hypertension. She also has scattered extensive ground-glass opacities in the bilateral lungs compatible with interstitial pulmonary edema due to CHF. There is also complete consolidation of the bilateral lower lobes with air bronchograms and bilateral moderate pleural effusions compatible with pneumonia. EKG shows unspecified rhythm, known left bundle branch block, rate [address]/depressions. In the ED, received 325 mg aspirin, Tylenol, IVF, ceftriaxone, Zithromax. Severe sepsis and acute hypoxic respiratory failure due to pneumonia and acute on chronic diastolic CHF white count resolved, has remained afebrile respiratory status improving. Blood cultures have remained negative. she was treated with IV ceftriaxone azithromycin started 12/27 and will be discharged to complete 7 day course. follow-up cultures, change to ceftin at discharge acute on chronic diastolic heart failure Initially treated with IV Lasix with good effect. She was seen by cardiology and had echo. echo with LVOT obstruction, normal EF, moderate MR, mild pulmonary hypertension. cardiology recommended to discontinue amlodipine. HCTZ was placed on hold. lisinopril resumed, but BP remains soft and was placed on hold - can resume as bp allows. still requiring 1L NC, Continue to wean oxygen as tolerated. Unspecified acute on chronic anemia--stable 1 unit of blood ordered per cardiology recommendation for cardiac support. no evidence of acute blood loss. H/H on discahrge 9.9/29.3 UTI on ceftriaxone as above UCx growing E coli sensitive to ceftriaxone. will complete course of oral antibiotics upon discharge. Right lower extremity laceration sustained as outpatient Wound care following, management as per wound care note- will need outpatient wound care follow up wound care instructions: Left Lower Leg - Elevate both lower legs on pillows and float heels. Apply xeroform, cover with ABD pad, wrap with gauze wrap. Change every other day. Right Lower Leg - Elevate both lower legs on pillows and float heels. Cleanse with NS moist gauze. Apply skin prep to periwound. Apply Durafiber AG to wound bed followed by ABD Pad, Gauze wrap. Change every 3 -4 days. incidental findings of Atherosclerotic calcifications in proximal bilateral renalarteries, causing significant stenosis at the origin of left renal artery blood pressure has not been elevated. outpatient follow up Time Attestation Discharge Coordination Time (in mins): 36 Quality: Safe Use of Opioids Does Pt have an Active Cancer Diagnosis on the Problem List?: No Quality: Stroke Does the patient have a stroke diagnosis?: No Physical Exam Vital Signs: Vital Signs: Last Vital Signs Temp 97.5 F 01/01/24 07:37 Pulse 61 01/01/24 07:37 Resp 18 01/01/24 07:37 BP 132/62 01/01/24 07:37 Pulse Ox 97 01/01/24 07:37 O2 Del Method Nasal Cannula 01/01/24 07:37 O2 Flow Rate 1 01/01/24 07:37 FiO2 28 12/27/23 14:34 BMI result Body Mass Index 31.3 Const: General: cooperative, comfortable, no acute distress, alert and awake Nutritional Appearance: overweight Orientation/consciousness: patient oriented x3 Resp: Effort & Inspection: normal respiratory effort, able to speak in complete sentences, no respiratory distress and no use of accessory muscles Cardio: Rate: regular rate Heart sounds: Murmur heart sound present GI: Inspection: No distended Palpation (GI): Soft to palpation and nontender Skin: Other: b/l wound covered with clean dressings, anterior shins Neuro: General: patient oriented x3, moves all extremities and CN's II-XI intact bilaterally Extrem: General: Yes no pedal edema DS: Data Data Completed and Pending Labs on day of discharge: Laboratory Results - last 24 hr 12/31/23 01/01/24 13:20 06:46 WBC 7.6 7.2 RBC 2.72 L 3.04 L Hgb 8.6 L 9.9 L Hct 26.8 L 29.3 L MCV 98.5 H 96.4 MCH 31.6 32.6 MCHC 32.1 33.8 RDW 14.1 13.9 Plt Count 235 229 MPV 9.8 9.7 Absolute Nucleated RBC 0.000 0.000 Nucleated RBC % (auto) 0.0 0.0 Blood Type B Negative Antibody Screen NEGATIVE Crossmatch See Detail Discharge Plan Discharge Anticipated Discharge Date/Time: 01/01/24 10:18 Patient Disposition: Xfer [facility] Discharge Diagnosis: Mitral regurgitation CHF Pneumonia UTI Bilateral chronic lower extremity wounds Referrals: Anthony Guzman [Outside] - 1 Week Janna Sibley MD [Primary Care Provider] - [address] MD [Physician] - 1 Week Discharge Medications: New azithromycin 250 mg tablet 250 mg PO DAILY 3 Days Qty: 3 0RF cefuroxime axetil 250 mg tablet 500 mg PO Q12H 3 Days Qty: 12 0RF Continued lamotrigine 25 mg tablet 50 mg PO BID gabapentin 300 mg capsule 300 mg PO TID omeprazole 20 mg capsule,delayed release(DR/EC) 20 mg PO BID albuterol sulfate 90 mcg/actuation HFA aerosol inhaler 2 inh inhalation DAILY PRN (Reason: SOB) lamotrigine 100 mg tablet 100 mg PO BID budesonide-formoterol 160-4.5 mcg/actuation HFA aerosol inhaler 2 puff INHALATION BID Gemtesa 75 mg tablet 75 mg PO DAILY PreserVision AREDS-2 250-90-40-1 mg Capsule 1 tab PO BID calcium carbonate-vitamin D3 [Calcium 600 + D(3)] 600 mg-5 mcg (200 unit) Tablet 1 tab PO BID Changed furosemide 20 mg tablet 40 mg PO DAILY Qty: 30 0RF Held lisinopril 10 mg tablet 10 mg PO DAILY Hold Instructions: blood pressure has been soft, can resume as blood pressure allows Discontinued chlorthalidone 25 mg tablet 12.5 mg PO DAILY amlodipine 10 mg tablet 10 mg PO DAILY Discharge Orders: Discharge Order (Routine); Ordered 01/01/24 Ordered By: Sona Jacobsen Diet: Low salt diet Activity on Discharge: As tolerated Stand Alone Forms: Patient Portal Discharge page Print Language: Mohawk Activity Restrictions/Additional Instructions: Topical wound care recommendations: Left Lower Leg - Elevate both lower legs on pillows and float heels. Apply xeroform, cover with ABD pad, wrap with gauze wrap followed by keli wrap. Change every other day. Right Lower Leg - Elevate both lower legs on pillows and float heels. Cleanse with NS moist gauze. Apply skin prep to periwound. Apply Durafiber AG to wound bed followed by ABD Pad, Gauze wrap. Change every other day. Recommend follow up out patient Wound Clinic at [address] [place] [id number] and to call for an appointment at time of discharge. [phone].? Care Plan Goals: see below Health Concerns: mitral regurgitation acute on chronic CHF pneumonia UTI b/l lower extremity wounds Plan of Treatment: Stop taking amlodipine and hydrochlorothiazide Blood pressure has been on lower side, lisinopril has been on hold, can resume if blood pressure allows Dose of lasix was increased to 40 mg daily and changed to scheduled rather then as needed call to schedule follow up appointment with cardiology complete course of antibiotics for UTI/pneumonia. call to schedule follow-up appointment at the Wound Care [facility] as above Call to schedule follow-up appointment with PCP Assessment: see discharge summary
[2024-01-01] MEDS: polyethylene glycoL 3350 17 GM POWD.PACK PO (11:43)
--- NOTE | 2024-01-01 12:45 | MHC.CM.PN ---
PT CLEARED TO DC TO [facility] TODAY CM CALLED PTS DAUGHTER, AMIRA [phone], SHE REPORTS [facility] AND [facility] THE PREFERRED SNFS SHE IS NOW AWARE [facility] IS NOT OFFERING AND HAS ACCEPTED A BED OFFER FROM [facility] SHE IS AWARE PT WILL DC TO [facility] TODAY VIA BLS AT 1600 HOURS CM SPOKE WITH PT WHO STATES SHE IS DISAPPOINTED SHE WILL NOT BE GOING TO [facility], BUT IS LOOKING FORWARD TO STARTING REHAB
--- NOTE | 2024-01-01 14:00 | PM.PNCARD ---
Subjective Subjective Date of Service: 01/01/24 Interval history: Seen examined at bedside. Significant improvement in shortness of breath. Off oxygen. Physical Exam Vital Signs: Last Vital Signs Temp 97.6 F 01/01/24 11:25 Pulse 72 01/01/24 11:25 Resp 18 01/01/24 11:25 BP 107/58 L 01/01/24 11:25 Pulse Ox 97 01/01/24 11:25 O2 Del Method Nasal Cannula 01/01/24 11:25 O2 Flow Rate 1 01/01/24 11:25 FiO2 28 12/27/23 14:34 BMI result Body Mass Index 31.3 GENERAL APPEARANCE: In no acute distress. On supplemental oxygen. NECK: no carotid bruit,no jugular venous distention. SKIN: no suspicious lesions, warm and dry. HEART: No murmur noted across the precordium, regular rate and rhythm. LUNGS: CTABL ABDOMEN: soft, nontender. EXTREMITIES: Trace edema. PERIPHERAL PULSES: equal. NEUROLOGIC: No gross deficits, AAO X 3 Objective Labs and Meds 01/01/24 06:46 12/30/23 09:18 Lab results: Laboratory Results - last 24 hr 12/31/23 01/01/24 13:20 06:46 WBC 7.2 RBC 3.04 L Hgb 9.9 L Hct 29.3 L MCV 96.4 MCH 32.6 MCHC 33.8 RDW 13.9 Plt Count 229 MPV 9.7 Absolute Nucleated RBC 0.000 Nucleated RBC % (auto) 0.0 Blood Type B Negative Antibody Screen NEGATIVE Crossmatch See Detail Progress Note: A&P Assessment and plan (1) Dynamic left ventricular outflow obstruction: Status: Acute (2) Acute hypoxemic respiratory failure: Status: Acute (3) Acute exacerbation of congestive heart failure: Status: Acute Plan Pleasant 88-year-old female who has pneumonia and congestive heart failure. Echocardiography has shown systolic anterior motion of anterior mitral valve leaflet. There is [id number] mitral regurgitation. Decrease preload and afterload can lead to worsening of LVOT obstruction. Amlodipine was held. She is being diuresed and is improving. She is on treatment for pneumonia. Overall she is clinically improving. Change to PO Lasix 40 mg. Stop chlorthalidone. She was given 1 unit of blood. I do not hear any murmur on examination today. She probably had dynamic LVOT gradient due to vasodilation due to sepsis and antihypertensive medications. Thank you for allowing me to participate in the care of your patient. Please feel free to contact me if you have any questions. Time Spent With Patient Time: Total time managing care of this patient today ____ minutes. Progress Note: Quality Stroke Does the patient have a stroke diagnosis?: No Procedures Date of Service Date of Service: 01/01/24
== END 2024-01-01 17:23 | disposition skilled nursing facility (03) | DRG 871 ==
LOC: HO.ED 09:39 → HO.EDOVER 11:45 → HO.IMC 14:58
PROVIDERS: Emergency Medicine; Internal Medicine; Admitting Provider Physician Assistant; Emergency Provider Emergency Medicine; PCP Internal Medicine; Visit Provider Physician Assistant Medical
DX: A41.9 Sepsis, unspecified organism (principal); I50.33 Acute on chronic diastolic (congestive) heart failure; J18.9 Pneumonia, unspecified organism; J91.8 Pleural effusion in other conditions classified elsewhere; I13.0 Hypertensive heart and chronic kidney disease with heart failure and stage 1 through stage 4 chronic kidney disease, or unspecified chronic kidney disease; N39.0 Urinary tract infection, site not specified; G47.33 Obstructive sleep apnea (adult) (pediatric); I70.1 Atherosclerosis of renal artery; I27.20 Pulmonary hypertension, unspecified; Z66 Do not resuscitate; N18.32 Chronic kidney disease, stage 3b; R65.20 Severe sepsis without septic shock; B96.20 Unspecified Escherichia coli [E. coli] as the cause of diseases classified elsewhere; G62.9 Polyneuropathy, unspecified; M79.7 Fibromyalgia; J45.20 Mild intermittent asthma, uncomplicated; D63.1 Anemia in chronic kidney disease; I34.0 Nonrheumatic mitral (valve) insufficiency; Z20.822 Contact with and (suspected) exposure to COVID-19; Z79.899 Other long term (current) drug therapy
CPT/HCPCS: 0241U; 36415; 71045; 71275; 80048; 80053; 81001; 82803; 83605; 83880; 84145; 84484; 85025; 85027; 85379; 86850; 86900; 86901; 86923; 87040; 87086; 87088; 87186; 93005; 93306; 94640; 94660; 94799; 97162; 99285; J0456; J0696; J1940; J2270; J7120; P9016; Q9957; Q9967

== ENCOUNTER → 2023-12-27 06:52 | Outpatient (BNV) | payer MEDICARE, OTHER, SELFPAY | PROVIDERS: Admitting Provider Physician Assistant; Emergency Provider Emergency Medicine; PCP Internal Medicine; Visit Provider Internal Medicine Cardiovascular Disease | DX: I34.81 Nonrheumatic mitral (valve) annulus calcification (principal); I34.0 Nonrheumatic mitral (valve) insufficiency; I42.1 Obstructive hypertrophic cardiomyopathy; J91.8 Pleural effusion in other conditions classified elsewhere | CPT/HCPCS: 93010; 93306 ==

== ENCOUNTER 2023-12-27 11:27 | Outpatient (BNV) | payer MEDICARE, OTHER, SELFPAY | END 2023-12-29 11:02 | PROVIDERS: Admitting Provider Physician Assistant; Emergency Provider Emergency Medicine; PCP Internal Medicine; Visit Provider Internal Medicine Cardiovascular Disease | DX: R94.31 Abnormal electrocardiogram [ECG] [EKG] (principal) | CPT/HCPCS: 93010 ==

== ENCOUNTER → 2023-12-27 11:27 | Outpatient (BNV) | payer MEDICARE, OTHER, SELFPAY | PROVIDERS: Admitting Provider Physician Assistant; Emergency Provider Emergency Medicine; PCP Internal Medicine; Visit Provider Physician Assistant | DX: A41.9 Sepsis, unspecified organism (principal); R65.20 Severe sepsis without septic shock; J96.01 Acute respiratory failure with hypoxia; I50.33 Acute on chronic diastolic (congestive) heart failure; J18.9 Pneumonia, unspecified organism | CPT/HCPCS: 99223; 99232; 99233; 99239 ==

== ENCOUNTER → 2023-12-27 11:27 | Outpatient (BNV) | payer MEDICARE, OTHER, SELFPAY | PROVIDERS: Admitting Provider Physician Assistant; Emergency Provider Emergency Medicine; PCP Internal Medicine; Visit Provider Internal Medicine Cardiovascular Disease | DX: I51.89 Other ill-defined heart diseases (principal); J96.01 Acute respiratory failure with hypoxia; I50.9 Heart failure, unspecified | CPT/HCPCS: 99223; 99233 ==

== ENCOUNTER 2024-01-21 14:38 | Outpatient (REF) | payer SELFPAY | END 2024-01-21 14:39 | disposition home or self-care (01) | LOC: HO.HAP 14:38 | PROVIDERS: Visit Provider Internal Medicine | DX: Z46.1 Encounter for fitting and adjustment of hearing aid (principal) | CPT/HCPCS: 92593 ==

== ENCOUNTER 2024-01-31 14:47 | Outpatient (REF) | payer MEDICARE, OTHER, SELFPAY ==
[2024-01-31 17:32] LABS: INTERNATIONAL NORM RATIO 0.9 (0.9-1.1); Prothrombin Time 10.5 SEC (11.1-13.3)
[2024-01-31 17:46] LABS: Hematocrit 31.6 % (37.0-47.0); Hemoglobin 10.2 g/dl (12.0-16.0); Mean Corpuscular HGB Conc 32.3 g/dl (31.0-35.0); Mean Corpuscular Hemoglobin 32.1 pg (27.0-33.0); Mean Corpuscular Volume 99.4 fL (80.0-98.0); Mean Platelet Volume 11.1 fL (9.4-12.3); Platelet Count 187 X10*3/uL (160-400); Red Blood Count 3.18 X10*6/uL (4.20-5.50); Red Cell Distribution Width 13.8 % (11.0-16.0); White Blood Count 8.1 X10*3/uL (4.8-10.8)
[2024-01-31 18:17] LABS: Alanine Aminotransferase 20 U/L (0-31); Albumin Level 4.2 g/dL (3.5-5.0); Alkaline Phosphatase 115 U/L (39-117); Anion Gap 14 (12-20); Aspartate Amino Transferase 25 U/L (5-31); B Type Natriuretic Peptide 430 pg/mL (<100); Bilirubin Direct 0.1 mg/dL (0.0-0.5); Bilirubin Total 0.4 mg/dL (0.0-1.0); Blood Urea Nitrogen 30 mg/dL (9-16); Calcium 9.6 mg/dL (8.4-10.2); Carbon Dioxide 29 mmol/L (22-29); Chloride 101 mmol/L (96-108); Estimated Glomerular Filt Rate 41; Glucose Random 107 mg/dL (60-115); Iron 59 mcg/dL (30-160); Percent Iron Saturation 20 % (15-50); Potassium 4.4 mmol/L (3.3-5.1); Sodium 140 mmol/L (135-145); Total Iron Binding Capacity 289 mcg/dL (228-428); Total Protein 6.7 g/dL (6.5-8.0); Unsaturated Iron Binding 230 ug/dL
[2024-01-31 18:34] LABS: Ferritin 143 ng/mL (10-250)
== END 2024-01-31 14:48 | disposition home or self-care (01) ==
LOC: HO.LAB 14:47
PROVIDERS: PCP Internal Medicine; Visit Provider Internal Medicine Cardiovascular Disease
DX: I50.9 Heart failure, unspecified (principal); I51.89 Other ill-defined heart diseases; I50.32 Chronic diastolic (congestive) heart failure
CPT/HCPCS: 36415; 80048; 80076; 82728; 83540; 83880; 85027; 85610; 99212

== ENCOUNTER 2024-01-31 14:47 | Outpatient (AMB) | payer MEDICARE, OTHER, SELFPAY ==
[2024-01-31 15:15] VITALS: BP 110/62; PULSE 73; BMI 30.6
--- NOTE | 2024-01-31 15:15 | MHC.OFFVIS ---
Vital Signs 01/31/24 15:15 Height 5 ft 2 in Weight 167 lb 8.821 oz BMI 30.6 BP 110/62 Blood Pressure Location Rt brachial Position Sitting Pulse 73 Pulse Source Pulse Oximeter Intake Visit [place]asons[place] [facility] [place] [facility] [place]- pt for the past 4 days she been feeling Dizziness. 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: No Accompanied by: Daughter Allergies hydroxyzine Allergy (Verified 12/27/23 16:48) Hives imipramine Allergy (Verified 12/27/23 16:48) Hives Medication List - Last Reconciled 01/31/[address] MD albuterol sulfate 90 mcg/actuation 2 inhalations inhalation DAILY PRN budesonide-formoterol 160-4.5 mcg/actuation 2 puffs inhalation BID calcium carbonate-vitamin D3 600 mg-5 mcg (200 unit) (Calcium 600 + D(3)) 1 tab PO BID furosemide 40 mg (2 x 20 mg) PO DAILY gabapentin 300 mg PO TID lamotrigine 100 mg PO BID lamotrigine 50 mg PO BID omeprazole 20 mg PO BID vibegron (Gemtesa) 75 mg PO DAILY vit C,U-Po-pkfyx-lutein-zeaxan 250-90-40-1 mg (PreserVision AREDS-2) 1 tab PO BID HPI Comments Details: 88-year-old female who is here for follow-up. She was recently seen in the hospital when she presented with pneumonia and congestive heart failure. Echocardiography showed systolic anterior motion of mitral valve and left ventricular outflow tract obstruction and vxnx-oz-ehgkvgwq mitral valve regurgitation. She was clinically volume overloaded and in heart failure. She was diuresed and her vasodilators were stopped. She improved and was discharged home. She did well after that till recently when she started feeling dizzy and fatigued. Today was the worst day as per the daughter who accompanied her. She is feeling little spaced out and has been getting lightheaded feeling. Denying any significant shortness of breath but continues to get some chest discomfort which he has a pressure-like feeling. It appears these symptoms are worse when she has dizziness and LVOT obstruction. She is saying these episodes are prolonged but on discussing she is saying these last for 15-20 minutes with the some confusion. I have explained to the patient and daughter that this will need further workup. Her lisinopril and amlodipine were discontinued while she was in the hospital. [facility] Medical History (Updated 01/31/24 @ 17:[address] MD) Hyperlipidemia Hypertension Left bundle branch block Urge incontinence SEBASTIAN on CPAP Fibromyalgia Chronic polyneuropathy History of melanoma Asthma Diastolic dysfunction Social History Household Members: Children Housing: House Do you presently have visiting nurse or other home services: No Unable to assess alcohol history related to: Unable to respond and Unknown Patient Tobacco Use Status: Never used Tobacco Advance Directives Date on File: 12/27/23 service: No Review of Systems Const Denies chills, Denies fatigue, Denies fever(s), Denies frequent falls, Denies weakness, Denies weight gain and Denies weight loss ENT Reports dizziness Card Denies chest pain, Denies leg edema, Reports lightheadedness, Denies palpitations, Denies dyspnea and Denies dyspnea on exertion Resp Denies cough, Denies dyspnea and Denies dyspnea on exertion GI Denies hematochezia Musc Denies abnormal gait, Denies muscle weakness, Denies numbness, Denies radiating pain into limb and Denies tingling Neuro Denies abnormal gait, Reports dizziness, Denies frequent falls, Denies numbness, Denies tingling and Denies weakness Endo Denies fatigue and Denies palpitations Physical Exam Vital Signs: Last Vital Signs Pulse 73 01/31/24 15:15 BP 110/62 01/31/24 15:15 BMI result Body Mass Index 30.6 GENERAL APPEARANCE: in no acute distress, pleasant. NECK: no carotid bruit, no jugular venous distention. SKIN: no suspicious lesions, warm and dry. HEART: Loud systolic murmur all over the precordium, regular rate and rhythm. LUNGS: clear to auscultation bilaterally. ABDOMEN: soft, nontender. EXTREMITIES: no edema. PERIPHERAL PULSES: equal. NEUROLOGIC: No gross deficits, AAO X 3 Assessment & Plan Assessment & Plan (1) Dynamic left ventricular outflow obstruction: Code(s): I51.89 - Other ill-defined heart diseases Category: Medical (2) Chronic diastolic heart failure: Code(s): I50.32 - Chronic diastolic (congestive) heart failure Category: Medical Plan Very pleasant 88-year-old female who is here for follow-up. She was seen in the hospital when she presented with pneumonia and congestive heart failure. She was noticed to have dynamic left ventricular outflow obstruction with peak gradient of 53 mm Hg across the LVOT and systolic anterior mitral valve leaflet motion. She had aluq-fz-wurkhfey mitral valve regurgitation. Her vasodilators were stopped and she was diuresed which improved her symptoms. She was eventually discharged back home but now returning for follow-up and is complaining of some lightheadedness and fatigue ongoing for few days but worse today. She appears euvolemic by examination. She has a loud murmur all over the precordium. I think she is somewhat under filled and her preload is low which leading to more obstruction. I have advised the daughter that we should check her weight today and monitor her daily. Her Lasix will be held going forward. If she gains 2 or more lb in a day or 2 then we will have discussion about resuming diuretics probably at a lower dose of 20 mg daily. Her vasodilators should be held. As her blood pressure improves and we noticed some improvement in her symptoms we stopping diuretics I would consider adding beta-octaviano to her regimen. A lot of patients with hypertrophic myopathy/LVOT obstruction can have chest discomfort. It is difficult to say whether this is the scenario or she truly has underlying coronary disease. I have explained to the daughter that this will need further workup. She has a left bundle-branch block and options will be to do either a Lexiscan or a coronary CTA. Thank you for allowing me to participate in the care of your patient. Please feel free to contact me if you have any questions. Orders: Orders B Type Natriuretic Peptide Today I50.9 - Heart failure, unspecified Complete Blood Count no Diff Today I50.9 - Heart failure, unspecified Prothrombin Time INR Today I50.9 - Heart failure, unspecified Ferritin Today I50.9 - Heart failure, unspecified Basic Metabolic Panel Today I50.9 - Heart failure, unspecified Liver Panel Today I50.9 - Heart failure, unspecified IRON PROFILE Today I50.9 - Heart failure, unspecified Coding Level of Care Code Est Pt Level 5 (95359) Diagnoses Dynamic left ventricular outflow obstruction I51.89 Chronic diastolic heart failure I50.32
== END 2024-01-31 15:50 | disposition home or self-care (01) ==
PROVIDERS: PCP Internal Medicine; Visit Provider Internal Medicine Cardiovascular Disease
DX: I50.32 Chronic diastolic (congestive) heart failure (principal); I51.89 Other ill-defined heart diseases
CPT/HCPCS: 99214

== ENCOUNTER 2024-02-28 18:06 | Observation (INO) | payer MEDICARE, OTHER, SELFPAY ==
--- NOTE | ~2024-02-28 | CT_ITS ---
EXAMINATION: CT HEAD WITHOUT CONTRAST CT CERVICAL SPINE WITHOUT CONTRAST CLINICAL INFORMATION: Head strike and syncope. COMPARISON: Head CT dated 09/25/2019. TECHNIQUE: Contiguous axial imaging was performed from the skullbase to vertex without intravenous administration of contrast. Multidetector helical imaging was performed through the cervical spine. This CT examination was performed using dose optimization techniques as appropriate, variously including the following: *Automated exposure control *Adjustment of mA and/or kV according to patient size (this includes techniques or standardized protocols for targeted exams where dose is matched to indication/reason for exam; i.e. extremities or head) *Use of iterative reconstruction technique DLP: 1013 mGy-cm. FINDINGS: HEAD: There is no evidence of acute intracranial hemorrhage or territorial infarction. No abnormal mass effect or midline shift is seen. No extra-axial fluid collections are identified. Scattered small lacunar infarcts visible in the deep hair matter structures. There is encephalomalacia again visible in the left frontal lobe at the site of a chronic infarct, also involving the anterior left insular cortex. Moderate generalized brain parenchymal volume loss noted with commensurate expansion of prominence of the ventricles. The osseous structures and soft tissues are normal. The mastoid air cells and visualized portions of the paranasal sinuses are well aerated. CERVICAL SPINE: No acute fracture or subluxation is identified in the cervical spine. Bulky anterior endplate spurring most notable at the C5-C6 level with mild disc space narrowing and uncovertebral joint hypertrophy resulting in moderate right foraminal encroachment. Central disc protrusions mildly impress upon the ventral cord at the and C4-C5 and C6-C7 levels. The atlantoaxial articulation is normally maintained with significant degenerative changes at the odontoid tip and anterior arch of C1. The paraspinal soft tissues are normal. Moderate degenerative changes of the temporomandibular joints. A couple of less than 2 mm nodules are visible in the right lung apex. The lungs are otherwise relatively clear with very mild subsegmental atelectatic changes. CT/CT cervical spine wo IV con IMPRESSION: 1. No acute intracranial hemorrhage or territorial infarction. 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 Scattered chronic-appearing deep hair matter lacunar infarcts. The possibility of a focal acute ischemic process cannot be conclusively ruled out on the basis of this study. 2. No evidence of acute cervical spine traumatic injury. Multilevel spondylosis with central disc protrusions at the C4 and C5 and C6-C7 levels. Mild to moderate degenerative disc disease at the C5-C6 level. Electronically signed by: David Carbone MD 02/28/2024 08:26 PM EDT RP
[2024-02-28 18:25] VITALS: BP 127/74; PULSE 68; RESP 16; TEMP 36.7; O2SAT 99; BMI 24.1
--- NOTE | 2024-02-28 18:27 | ED_ITS ---
HPI - Syncope General Chief Complaint: Syncope Stated Complaint: Syncopal episode, hit head Time Seen by Provider: 02/29/24 02:47 Source: patient Mode of arrival: ambulatory Limitations: no limitations History of Present Illness ED Provider: morgan POLANCO narrative: 88-year-old female with history of diastolic dysfunction, left bundle branch block, history of melanoma, asthma, chronic unspecified polyneuropathy, fibromyalgia, SEBASTIAN compliant with CPAP, urge incontinence, hypertension, hyperlipidemia been feeling weak for last 2 3 days today while going to the room felt lightheaded and passed out hitting her back of the head to the chair no chest pain no palpitation no seizure history of similar episode any year ago Related Data Home Medications ?Medication ?Instructions ?Recorded ?Confirmed albuterol sulfate 90 mcg/actuation 2 inh inhalation DAILY PRN SOB 12/27/23 01/31/24 aerosol inhaler budesonide-formoterol HFA 160 2 puff inhalation BID 12/27/23 01/31/24 mcg-4.5 mcg/actuation aerosol inhaler calcium carbonate 600 mg-vitamin 1 tab PO BID 12/27/23 01/31/24 D3 5 mcg (200 unit) tablet (Calcium 600 + D(3)) gabapentin 300 mg capsule 300 mg PO TID 12/27/23 01/31/24 lamotrigine 100 mg tablet 100 mg PO BID 12/27/23 01/31/24 lamotrigine 25 mg tablet 50 mg PO BID 12/27/23 01/31/24 omeprazole 20 mg capsule,delayed 20 mg PO BID 12/27/23 01/31/24 release vibegron 75 mg tablet (Gemtesa) 75 mg PO DAILY 12/27/23 01/31/24 vit C 250 mg-vit E 90 mg-zinc 40 1 tab PO BID 12/27/23 01/31/24 mg-copper 1 bs-advbwy-ryqoch capsule (PreserVision AREDS-2) Previous Rx's ?Medication ?Instructions ?Recorded furosemide 20 mg tablet 40 mg (2 x 20 mg) PO DAILY 01/01/24 swelling #30 tabs Allergies Allergy/AdvReac Type Severity Reaction Status Date / Time hydroxyzine Allergy Hives Verified 02/28/24 18:30 imipramine Allergy Hives Verified 02/28/24 18:30 Review of Systems 2 Review of Systems: Yes all other systems are reviewed and are negative PMFSH Past Medical History Medical History Hyperlipidemia Hypertension Left bundle branch block Urge incontinence SEBASTIAN on CPAP Fibromyalgia Chronic polyneuropathy History of melanoma Asthma Diastolic dysfunction Social History Social History Household Members: Children Housing: House Do you presently have visiting nurse or other home services: No Unable to assess alcohol history related to: Unable to respond and Unknown Patient Tobacco Use Status: Never used Tobacco Smoked in Last 30 Days: No Use of substances other than those prescribed or required for medical reasons: No Advance Directives: Yes Advance Directives on File: Yes Advance Directives Date on File: 12/27/23 Do you have a plan to hurt others: No Plan service: No Physical Exam 2 Vital Signs: Vital Signs: Last Vital Signs Temp 97.9 F 02/28/24 23:40 Pulse 56 02/29/24 03:48 Resp 13 02/29/24 03:48 BP 158/61 H 02/29/24 03:48 Pulse Ox 95 02/29/24 03:48 O2 Del Method Room Air 02/29/24 03:48 BMI result Body Mass Index 24.1 Appearance: Alert. Oriented X3. No acute distress. Eyes: PERRLA, No Nystagmus ENT: Pharynx normal. Oral Mucosa moist atraumatic normocephalic Neck: Normal inspection. Neck supple. No midline tenderness CVS: Normal heart rate and rhythm. Pulses normal. Respiratory: No respiratory distress. Equal air entry bilateral, no wheezing/rales/rhonchi Abdomen: Soft and nontender. Bowel sounds are present, no mass palpable, no CVA tenderness Skin: Skin warm and dry. Normal skin color. Normal skin turgor. Extremities: No lower extremity edema. No calf tenderness Neuro: Oriented X 3. No motor deficit. No sensory deficit.No cerebellar signs , cranial nerves II-XII intact Course Course Course Narrative: This is an RME: Additional HPI, ROS, PE not included below will be deferred to primary provider. RME assessment and note performed by: Yoana Coleman PA-C This is a 34-xlrd-giz-female, with a hx of diastolic dysfunction, left bundle branch block, history of melanoma, asthma, chronic unspecified polyneuropathy, fibromyalgia, SEBASTIAN compliant with CPAP, urge incontinence, hypertension, hyperlipidemia who presents to the ER with complaints of syncopal episode which occurred today. She felt dizzy, fell back, struck posterior head on the ground with LOC. Plan: Labs, UA, CT head Medications Administered Discontinued Medications Generic Name Dose Route Start Last Admin Trade Name José Miguelq PRN Reason Stop Dose Admin Ceftriaxone Sodium 1 gm/ 50 mls @ 100 mls/hr 02/29/24 03:15 02/29/24 05:01 Sodium Chloride IV 02/29/24 03:44 Infused ONCE ONE Infusion Medical Decision Making Medical Decision Making [facility] Narrative: Patient with syncope episode likely orthostatics also has UTI was given IV fluids and antibiotics vitals are stable at this time will admit patient for IV fluids and antibiotic treatment for UTI Differential Diagnosis Differential Diagnoses: The differential diagnosis associated with the presentation includes Vasovagal syncope/orthostatic hypotension/seizure/cardiac arrhythmias Admission/Observation Consideration of admission/observation: Escalation of care including admission/observation considered Consult Healthcare Provider Management of the patient was discussed with: Hospitalist Lab Data [facility] Lab Attestation statement: I reviewed the patient's lab results. 02/28/24 19:02 02/28/24 19:02 Labs: Lab Results 02/28/24 02/29/24 Range/Units 19:02 04:01 WBC 6.8 (4.8-10.8) X10*3/uL RBC 3.36 L (4.20-5.50) X10*6/uL Hgb 10.9 L (12.0-16.0) g/dl Hct 33.0 L (37.0-47.0) % MCV 98.2 H (80.0-98.0) fL MCH 32.4 (27.0-33.0) pg MCHC 33.0 (31.0-35.0) g/dl RDW 14.0 (11.0-16.0) % Plt Count 120 L D (160-400) X10*3/uL MPV 11.0 (9.4-12.3) fL Immature Gran % (Auto) 0.4 (0.0-0.4) % Neut % (Auto) 59.3 (45-73) % Lymph % (Auto) 29.5 (20-40) % Dare % (Auto) 8.1 (2-11) % Eos % (Auto) 2.1 (0-4) % Baso % (Auto) 0.6 (0-2) % Lymph # (Auto) 2.0 (1.2-4.9) X10*3/uL Dare # (Auto) 0.6 (0.1-1.2) X10*3/uL Eos # (Auto) 0.1 (0.0-0.4) X10*3/uL Baso # (Auto) 0.0 (0.0-0.2) X10*3/uL Abs Immat Gran (auto) 0.03 (0.00-0.03) X10*3/uL Absolute Neuts (auto) 4.0 (2.0-8.3) x10*3/uL Absolute Nucleated RBC 0.000 (0.0-0.012) X10*3/uL Nucleated RBC % (auto) 0.0 (0.0-0.2) /100WBC PT 10.5 L (11.1-13.3) SEC INR 0.9 (0.9-1.1) APTT 32.1 (26.0-36.8) SEC Sodium 144 (135-145) mmol/L Potassium 3.8 (3.3-5.1) mmol/L Chloride 105 (96-108) mmol/L Carbon Dioxide 28 (22-29) mmol/L Anion Gap 15 (12-20) BUN 34 H (9-16) mg/dL Creatinine 1.34 (0.5-1.4) mg/dL Estim Creat Clear Calc 26.1 Estimated GFR 37 Random Glucose 129 H (60-115) mg/dL Lactic Acid 0.5 (0.5-2.0) mmol/L Calcium 9.6 (8.4-10.2) mg/dL Magnesium 2.5 (1.6-2.6) mg/dL Total Bilirubin 0.4 (0.0-1.0) mg/dL Direct Bilirubin 0.2 (0.0-0.5) mg/dL AST 21 (5-31) U/L ALT 15 (0-31) U/L Alkaline Phosphatase 89 (39-117) U/L Troponin I High Sens 19.9 H D 16.5 (<3.5-17.0) ng/L Total Protein 6.3 L (6.5-8.0) g/dL Albumin 4.1 (3.5-5.0) g/dL Urine Color Yellow Urine Appearance Turbid Urine pH 6.0 (5.0-9.0) Ur Specific Queen 1.015 (1.005-1.025) Urine Protein Trace (Neg-Trace) mg/dL Urine Glucose (UA) Negative (Negative) mg/dL Urine Ketones Negative (Negative) mg/dL Urine Blood Moderate (2+) H (Negative) Urine Nitrite Negative (Negative) Ur Leukocyte Esterase Large (3+) H (Negative) Urine RBC 0-2 (0-2) /HPF Urine WBC >50 H (0-5) /HPF Ur Squamous Epith Cells 3-5 (0-2) /HPF Urine Bacteria 4+ (None Seen) Hyaline Casts 3-5 (0-2) /LPF Influenza Type A (PCR) NEGATIVE (Negative) Influenza Type B (PCR) NEGATIVE (Negative) RSV RNA Qual (PCR) NEGATIVE (Negative) SARS-CoV-2 RNA (RT-PCR) NEGATIVE (Negative) Independent Interpretation I performed an independent interpretation of an: EKG and CT Scan Interpretation: Normal sinus rhythm left bundle branch block no acute ST-T changes no acute ischemia no change from the previous EKGs Radiology Impression Discussion of test interpretation with radiology: I have reviewed the radiologist's reading. Discharge Plan Discharge Clinical Impression: Acute UTI, Vasovagal syncope Patient Disposition: Admitted As Inpatient
--- NOTE | 2024-02-28 18:32 | ECG_ITS ---
Test Reason : syncope Blood Pressure : / mmHG Vent. Rate : 062 BPM Atrial Rate : 062 BPM P-R Int : 180 ms QRS Dur : 142 ms QT Int : 442 ms P-R-T Axes : -12 -23 136 degrees QTc Int : 448 ms Normal sinus rhythm Left bundle branch block Abnormal ECG When compared with ECG of 29-DEC-2023 11:02, No significant change was found Referred By: Yoana Coleman Electronically Signed By:ERENDIRA ARORA
[2024-02-28 19:09] LABS: MANUAL DIFF FLAG NO
[2024-02-28 19:10] LABS: Basophils Percent Auto 0.6 % (0-2); Eosinophils Absolute Auto 0.1 X10*3/uL (0.0-0.4); Eosinophils Percent Auto 2.1 % (0-4); Hemoglobin 10.9 g/dl (12.0-16.0); Imm Gran Abs Auto 0.03 X10*3/uL (0.00-0.03); Imm Gran Pct Auto 0.4 % (0.0-0.4); Lymphocytes Percent Auto 29.5 % (20-40); Mean Corpuscular Hemoglobin 32.4 pg (27.0-33.0); Mean Corpuscular Volume 98.2 fL (80.0-98.0); Monocytes Absolute Auto 0.6 X10*3/uL (0.1-1.2); Monocytes Percent Auto 8.1 % (2-11); Neutrophils Percent Auto 59.3 % (45-73); Platelet Count 120 X10*3/uL (160-400); Red Blood Count 3.36 X10*6/uL (4.20-5.50); White Blood Count 6.8 X10*3/uL (4.8-10.8)
[2024-02-28 19:12] LABS: Appearance Urine Turbid; Color Urine Yellow; Glucose Urine UA Negative (Negative); Leukocyte Esterase Urine Large (3+) (Negative); Nitrite Urine Negative (Negative); Specific Gravity - Urine 1.015 (1.005-1.025); UMIC TRIGGER UACC YES; Urine Blood Moderate (2+) (Negative); Urine Ketones Negative (Negative); Urine Protein Trace mg/dL (Neg-Trace)
[2024-02-28 19:17] LABS: INTERNATIONAL NORM RATIO 0.9 (0.9-1.1); Prothrombin Time 10.5 SEC (11.1-13.3)
[2024-02-28 19:19] LABS: Partial Thromboplastin Time 32.1 SEC (26.0-36.8)
[2024-02-28 19:26] LABS: Bacteria Urine 4+ (None Seen); RBC Urine 0-2 /HPF (0-2); UACC Culture Trigger YES; WBC Urine >50 /HPF (0-5)
[2024-02-28 19:27] LABS: Alanine Aminotransferase 15 U/L (0-31); Albumin Level 4.1 g/dL (3.5-5.0); Alkaline Phosphatase 89 U/L (39-117); Anion Gap 15 (12-20); Aspartate Amino Transferase 21 U/L (5-31); Bilirubin Direct 0.2 mg/dL (0.0-0.5); Bilirubin Total 0.4 mg/dL (0.0-1.0); Blood Urea Nitrogen 34 mg/dL (9-16); Calcium 9.6 mg/dL (8.4-10.2); Carbon Dioxide 28 mmol/L (22-29); Chloride 105 mmol/L (96-108); Creatinine Clr Calc Pharmacy 26.1; Estimated Glomerular Filt Rate 37; Glucose Random 129 mg/dL (60-115); Magnesium 2.5 mg/dL (1.6-2.6); Potassium 3.8 mmol/L (3.3-5.1); Sodium 144 mmol/L (135-145); Total Protein 6.3 g/dL (6.5-8.0)
[2024-02-28 19:33] LABS: Troponin-I High Sensitivity 19.9 ng/L (<3.5-17.0)
[2024-02-28 19:49] LABS: Influenza A PCR NEGATIVE (Negative); Influenza B PCR NEGATIVE (Negative); Resp Syncy Virus RNA Qual PCR NEGATIVE (Negative); SARS COV2 PCR INHOUSE NEGATIVE (Negative)
[2024-02-28 22:39] VITALS: BP 148/56; PULSE 57; RESP 14; TEMP 36.8; O2SAT 98
--- OUTSIDE RECORDS SUMMARY | 2024-02-28 23:27 | XMS_ITS | Continuity of Care Document ---
Author Organization [facility] Adult Address [address] [place] [address]- Care Team Providers Care Bingo Checker Name Role Phone Toñito COLE, [facility] Primary Care Physician ( [phone] Encounter [facility] [place] Date(s): 01/14/24 - 02/13/[address] [address]- Allergies, Adverse Reactions, Alerts Substance Reaction Severity [...] vaccine, inactivated 6 04/26/09 Gi henri SARS-CoV-2(COVID-19)mRNA-LNP vac([id number]) 04/10/23 Recorded [id number] 12y+ bivalent booster vax 03/12/22 Recorded SARS-CoV-2 mRNA (edvlvol-xref-ffjvo) vax 10/17/21 Recorded SARS-CoV-2 (COVID-19) mRNA BNT-162b2 vac 03/28/21 Recorded SARS-CoV-2 (COVID-19) mRNA BNT-162b2 vac 08/15/20 Given SARS-CoV-2 (COVID-19) mRNA BNT-162b2 vac 07/25/20 Recorded pneumococcal 23-valent vaccine 09/24/16 Given pneumococcal 23-valent vaccine 7 10/24/04 Given pneumococcal 13-valent vaccine 07/10/15 Given Zoster Vaccine Live 8 09/13/08 Given diphtheria-tetanus toxoids (DT) 10/29/03 Given 1Result Comment: [facility] [id number] 2Admin Note: annmarie [facility] 3[facility] 4[facility] Note: [facility]o [facility] 5Result Comment: [07/10/2015] chelo rivera 6Admin Note: Tapan 7Admin Note: Tapan 8Admin Note: diluent lot [id number] Exp 08/28 Medications Advair Diskus 250 mcg-50 mcg inhalation powder 1, inhalation, Inhalation, 2 times a day, Refills 0, Maintenance, 02/04/24 9:34:00 EDT Start Date: 02/04/24 Status: Ordered albuterol CFC free 90 mcg/inh inhalation aerosol 2, puffs, Inhalation, 4 times a day, PRN, Urgent use with spacer chamber, # 18 Gm, Refills 3, Tot. Refills 3, Maintenance, 10/13/23 13:21:00 EDT, Aerosol, Route to Pharmacy Electronically, [id number], [facility]... Start Date: 10/13/23 Stop Date: 10/07/24 Status: Ordered atorvastatin 40 mg oral tablet 1 tablet = 40 mg, By Mouth, Daily, # 90 tablet, 0 Refills, Maintenance, 01/17/24 9:47:00 EDT, Tablet, [id number], Partial fill upon patient request if the prescription is for a schedule II opioid drug., 160, cm, 01/14/24 11:03:00 EDT,... Start Date: 01/17/24 Stop Date: 04/16/24 Status: Ordered calcium and vitamin D combination 315 mg-200 iu oral tablet 1 tablet, By Mouth, 2 times a day, # 120 tablet, 0 Refills, Maintenance, 04/15/20 10:06:00 EDT, Tablet Start Date: 04/15/20 Status: Ordered D-Mannose D-Mannose, Refills 0, Maintenance, 02/04/24 9:36:00 EDT, Supply Start Date: 02/04/24 Status: Ordered furosemide 40 mg oral tablet 40 mg, 1, tablet, By Mouth, Daily, # 90 tablet, Refills 1, Tot. Refills 1, Maintenance, 01/14/24 11:36:00 EDT, Route to Pharmacy Electronically, [facility], Partial fill upon patient request if the prescription is for a schedule II... Start Date: 01/14/24 Status: Ordered gabapentin 300 mg oral capsule [...] opioid drug. Start Date: 08/25/23 Status: Ordered lamotrigine 100 mg oral tablet 100 mg, 1, tablet, By Mouth, 2 times a day, # 180 tablet, Refills 0, Maintenance, 01/14/24 11:43:00EDT, Partial fill upon patient request if the prescription is for a schedule II opioid drug. Start Date: 01/14/24 Status: Ordered lamotrigine 25 mg oral tablet 2, tablet, By Mouth, 2 times a day, # 360 tablet, Refills 1, Maintenance, 12/06/23 15:14:00 EDT, Route to Pharmacy Electronically, [facility], 160, cm, 12/01/23 9:58:00 EDT, Height, 77.3, kg, 10/29/23 13:00:00 EDT, Dry Weight Start Date: 12/06/23 Status: Ordered Magnesium Citrate By Mouth, 0 Refills, Maintenance, 02/04/24 9:38:00 EDT, Partial fill upon patient request if the prescription is for a schedule II opioid drug. Start Date: 02/04/24 Status: Ordered omeprazole 20 mg oral enteric coated capsule 1 capsule, By Mouth, 2 times a day, # 180 capsule, 1 Refills, Maintenance, 02/11/24 22:58:00 EDT, [facility], 160, cm, 02/04/24 9:22:00 EDT, Height, 73, kg, 01/18/24 15:22:00 EDT, Dry Weight Start Date: 02/11/24 Status: Ordered PreserVision AREDS 2 oral capsule By Mouth, Daily, 0 Refills, Maintenance, 04/15/20 10:06:00 EDT Start Date: 04/15/20 Status: Ordered Probiotic Formula By Mouth, Daily, 0 Refills, Maintenance, 02/04/24 9:35:00 EDT, Partial fill upon patient request ifthe prescription is for a schedule II opioid drug. Start Date: 02/04/24 Status: Ordered Symbicort 160mcg/4.5mcg Inhaler 2, puffs, Inhalation, 2 times a day, use with spacer chamber, # 10.2 Gm, Refills 0, Tot. Refills 0,Maintenance, 12/08/23 13:44:00 EDT, Aerosol, Route to Pharmacy Electronically, [id number], [facility] #[id number], 160,... Start Date: 12/08/23 Stop Date: 01/07/24 Status: Ordered Problem List Condition Confirmation Course [...] Personnel Name: Saadia Abdalla Position: [facility] Onco RN Member Role: Primary Care Nurse Name: Janna Sibley MD Position: [facility] Physician - Primary Care Member Role: PCP Address: Address: [address] [place] [address] [address] [place], [place] [address] Name: Aislinn Mccauley RN Position: [facility] RN Member Role: Primary Care Nurse Care Team Related Persons Name: AMIRA MURPHY Address: home [address] [place] [address] [place] Name: AMIRA MURPHY Address: home [address] [facility] [address] [id number] Name: AIMRA MURPHY Address: home [address] [place] [address] Name: TITO MURPHY Address: home [address] [place] [address] Name: TITO MURPHY Address: [address] [place] [address] Name: TITO MURPHY Address: home [address] [place] [address]
--- OUTSIDE RECORDS SUMMARY | 2024-02-28 23:28 | XMS_ITS | Continuity of Care Document ---
Author Organization [facility] Adult Address [address] [place] [address]- Care Team Providers Care Dietitian Teaching Name Role Phone Toñito COLE, [facility] Primary Care Physician [place] [facility] [place] 02/09/24 [facility] [address] [place] [address]- Allergies, Adverse Reactions, Alerts Substance Reaction Severity [...] vaccine, inactivated 6 04/26/09 Gi henri SARS-CoV-2(COVID-19)mRNA-LNP vac([id number]) 04/10/23 Recorded [id number] 12y+ bivalent booster vax 03/12/22 Recorded SARS-CoV-2 mRNA (rkugedw-zzwy-ubbyd) vax 10/17/21 Recorded SARS-CoV-2 (COVID-19) mRNA BNT-162b2 vac 03/28/21 Recorded SARS-CoV-2 (COVID-19) mRNA BNT-162b2 vac 08/15/20 Given SARS-CoV-2 (COVID-19) mRNA BNT-162b2 vac 07/25/20 Recorded pneumococcal 23-valent vaccine 09/24/16 Given pneumococcal 23-valent vaccine 7 10/24/04 Given pneumococcal 13-valent vaccine 07/10/15 Given Zoster Vaccine Live 8 09/13/08 Given diphtheria-tetanus toxoids (DT) 10/29/03 Given 1Result Comment: [facility] [id number] 2Admin Note: [facility] 3Admin Note: Joseph Phelan [place] 4Admin Note: Joseph [facility] pallavi ar 5Result Comment: [07/10/2015] joseph rivera 6Admin Note: Pallavi 7Admin Note: Pallavi 8Admin [...] 13:21:00 EDT, Aerosol, Route to Pharmacy Electronically, [id number], [facility]... Start Date: 10/13/23 Stop Date: 10/07/24 Status: Ordered atorvastatin 40 mg oral tablet 1 tablet = 40 mg, By Mouth, Daily, # 90 tablet, 0 Refills, Maintenance, 01/17/24 9:47:00 EDT, Tablet, [facility] #[id number], Partial fill upon patient request if the [...] 02/04/24 Status: Ordered omeprazole 20 mg oral delayed [...] 13:44:00 EDT, Aerosol, Route to Pharmacy Electronically, [id number], [facility] #[id number], 160,... Start Date: 12/08/23 Stop Date: 01/07/24 [...] Care Team Personnel Name: Saadia Abdalla Position: [facility] Onco RN Member Role: Primary Care Nurse Name: Janna Sibley MD Position: [facility] Physician - Primary Care Member Role: PCP Address: Address: [address] [place] [address] [address] [place], [place] [address] Name: Aislinn Mccaluey RN Position: [facility] RN Member Role: Primary Care Nurse Care Team Related Persons Name: AMIRA MURPHY Address: [address] [id number] Name: AMIRA MURPHY Address: home [address] [place] [address] [place] Name: AMIRA MURPHY Address: home [address] [place] [address] Name: TITO MURPHY Address: [address] [place] [address] [place] Name: TITO MURPHY Address: home [address] [place] [address] Name: TITO MURPHY Address: home [address] [place] [address]
--- OUTSIDE RECORDS SUMMARY | 2024-02-28 23:28 | XMS_ITS | Continuity of Care Document ---
Author Organization [facility] Adult Address [address] [place] [address]- Care Team Providers Care Distribution Operations Manager Name Role Phone Toñito COLE, [facility] Primary Care Physician Encounter [facility] [place] Date(s): 12/08/23 - 01/07/24 [facility] [address] [place] [address]- Allergies, Adverse Reactions, Alerts Substance Reaction Severity [...] influenza virus vaccine, inactivated 4 05/15/16 Gi herni influenza virus vaccine, inactivated 5 06/04/15 Re corded influenza virus vaccine, inactivated 05/23/15 Marty rded influenza virus vaccine, inactivated 04/02/14 Marty rded influenza virus vaccine, inactivated 03/14/13 Give n influenza virus vaccine, inactivated 05/04/12 Marty rded influenza virus vaccine, inactivated 04/03/11 Marty rded influenza virus vaccine, inactivated 05/02/10 Give n influenza virus vaccine, inactivated 6 04/26/09 Gi henri SARS-CoV-2(COVID-19)mRNA-LNP vac([id number]) 04/10/23 Recorded [id number] 12y+ bivalent booster vax 03/12/22 Recorded SARS-CoV-2 mRNA (vykclsg-esco-czxyz) vax 10/17/21 Recorded SARS-CoV-2 (COVID-19) mRNA BNT-162b2 vac 03/28/21 Recorded SARS-CoV-2 (COVID-19) mRNA BNT-162b2 vac 08/15/20 Given SARS-CoV-2 (COVID-19) mRNA BNT-162b2 vac 07/25/20 Recorded pneumococcal 23-valent vaccine 09/24/16 Given pneumococcal 23-valent vaccine 7 10/24/04 Given pneumococcal 13-valent vaccine 07/10/15 Given Zoster Vaccine Live 8 09/13/08 Given diphtheria-tetanus toxoids (DT) 10/29/03 Given 1Result Comment: [facility] [id number] 2Admin Note: [facility] 3Admin Note: Joseph Phelan [place] 4Admin Note: Joseph Rivera [facility] pallavi [place] 5Result Comment: [07/10/2015] joseph rivera 6Admin Note: Pallavi 7Admin Note: Pallavi 8Admin Note: diluent lot 3089U Exp 08/28 Medications albuterol CFC free 90 mcg/inh inhalation aerosol 2, puffs, Inhalation, 4 times a day, PRN, Urgent use with spacer chamber, # 18 Gm, Refills 3, Tot. Refills 3, Maintenance, 10/13/23 13:21:00 EDT, Aerosol, Route to Pharmacy Electronically, [id number], [facility]... Start Date: 10/13/23 Stop Date: [...] 11/30/23 1:02:00EDT, Route to Pharmacy Electronically, [facility], 160, cm, 11/09/23 11:30:00 EDT, Height, 77.3, kg, 10/29/23 13:00:00 EDT, Dry Weight Start Date: 11/30/23 Status: Ordered Clobetasol (Eqv-Temovate E) Topically, 2 times a day, 0 Refills, Maintenance, 11/09/23 11:48:00 EDT, Partial fill upon patient request if the prescription is for a schedule II opioid drug. Start Date: 11/09/23 Status: Ordered furosemide 20 mg oral tablet 20 mg, 1, tablet, By Mouth, Daily, PRN, # 30 tablet, Refills 0, Tot. Refills 0, Maintenance, leg swelling, 12/10/23 16:11:00 EDT, Route to Pharmacy Electronically, [id number], Partial fill upon patient request if the prescription is f... Start Date: 12/10/23 Status: Ordered gabapentin 300 mg oral capsule [...] drug. Start Date: 08/25/23 Status: Ordered lamotrigine 25 mg oral tablet 2, tablet, By Mouth, 2 times a day, # 360 tablet, Refills 1, Maintenance, 12/06/23 15:14:00 EDT, Route to Pharmacy Electronically, [facility], 160, cm, 12/01/23 9:58:00 EDT, Height, 77.3, kg, 10/29/23 13:00:00 EDT, Dry Weight Start Date: 12/06/23 Status: Ordered lisinopril 10 mg oral tablet See Instructions, TAKE 1 TABLET DAILY, # 90 tablet, Refills 1, Tot. Refills 1, Maintenance, 11/30/23 13:53:00 EDT, Instructions Replace Required Details, Route to Pharmacy Electronically, [facility], 160, cm, 11/09/23 11:30:00 EDT,... Start Date: 11/30/23 Status: Ordered Nitrostat 0.3 mg sublingual tablet 1 tablet = 0.3 mg, Sublingual, Every 5 minutes, PRN as needed for chest pain, not to exceed 3 doses/15 min--if pain persists, seek medical attention, # 25 tablet, 0 Refills, Maintenance, 06/16/23 10:10:00 EST, Tablet, [id number], Part... Start Date: 06/16/23 Status: Ordered omeprazole 20 mg oral delayed release tablet 1 tablet = 20 mg, By Mouth, 2 times a day, # 180 tablet, 1 Refills, Maintenance, 07/20/23 13:18:00 EST, EC Tablet, [facility], Partial fill upon patient request [...] 13:44:00 EDT, Aerosol, Route to Pharmacy Electronically, [id number], [facility][id number], 160,... Start Date: 12/08/23 Stop Date: 01/07/24 [...] Team Personnel Name: Saadia Abdalla Position: [facility] Onco RN Member Role: Primary Care Nurse Name: Janna Sibley MD Position: [facility] Physician - Primary Care Member Role: PCP Address: Address: [address] [place] [address]- Name: Aislinn Mccauley RN Position: [facility] RN Member Role: Primary Care Nurse Care Team Related Persons Name: AMIRA MURPHY Address: home [address] [place] [address] Name: AMIRA MURPHY Address: home [address] [place] [address] [place] Name: AMIRA MURPHY Address: [address] [place] [id number] Name: TITO MURPHY Address: [address] [place] [address] [place] Name: TITO MURPHY Address: home [address] [place] [address] Name: TITO MURPHY Address: [address] [place] [address]
--- OUTSIDE RECORDS SUMMARY | 2024-02-28 23:28 | XMS_ITS | Continuity of Care Document ---
Author Organization [facility] Address [address] [place] [address]- Care Team Providers Care Touch Up Edger Name Role Phone Janna Sibley MD Primary Care Physician [place] [facility] 12/10/23 - 01/09/24 [facility] [address] [address] Attending Physician: Freddie Mcgrath Admitting Physician: AdmFreddie smith Referring Physician: Freddie Mcgrath Allergies, Adverse Reactions, [...] vaccine, inactivated 6 04/26/09 Gi henri SARS-CoV-2(COVID-19)mRNA-LNP vac([id number]) 04/10/23 Recorded [id number]-4iZWJ 12y+ bivalent booster vax 03/12/22 Recorded SARS-CoV-2 mRNA (mviwvxu-lusz-ssdel) vax 10/17/21 Recorded SARS-CoV-2 (COVID-19) mRNA BNT-162b2 vac 03/28/21 Recorded SARS-CoV-2 (COVID-19) mRNA BNT-162b2 vac 08/15/20 Given SARS-CoV-2 (COVID-19) mRNA BNT-162b2 vac 07/25/20 Recorded pneumococcal 23-valent vaccine 09/24/16 Given pneumococcal 23-valent vaccine 7 10/24/04 Given pneumococcal 13-valent vaccine 07/10/15 Given Zoster Vaccine Live 8 09/13/08 Given diphtheria-tetanus toxoids (DT) 10/29/03 Given 1Result Comment: [facility] [id number] 2Admin Note: [facility] 3Admin Note: Joseph RIVERA [facility] 4Admin Note: Joseph Rivera [facility] 5Result Comment: [07/10/2015] joseph rivera 6Admin Note: [place] 7Admin Note: [place] 8Admin Note: diluent lot 3089U Exp 08/28 Medications albuterol CFC free 90 mcg/inh inhalation aerosol 2, puffs, Inhalation, 4 times a day, PRN, Urgent use with spacer chamber, # 18 Gm, Refills 3, Tot. Refills 3, Maintenance, 10/13/23 13:21:00 EDT, Aerosol, Route to Pharmacy Electronically, [id number], [facility]... Start Date: 10/13/23 Stop Date: [...] 12/10/23 16:11:00 EDT, Route to Pharmacy Electronically, [facility][id number], Partial fill upon patient request if the [...] 0 Refills, Maintenance, 06/16/23 10:10:00 EST, Tablet, [facility] #[id number], Part... Start Date: 06/16/23 Status: Ordered omeprazole 20 mg oral delayed release tablet 1 tablet = 20 mg, By Mouth, 2 times a day, # 180 tablet, 1 Refills, Maintenance, 07/20/23 13:18:00 EST, EC Tablet, [facility], Partial fill upon patient request if the prescriptionis for a schedule II opioid drug., 160, cm, 01/02/2... Start Date: 07/20/23 Stop Date: 01/16/24 Status: Ordered PreserVision AREDS 2 oral capsule By Mouth, Daily, 0 Refills, Maintenance, 04/15/20 10:06:00 EDT Start Date: 04/15/20 Status: Ordered Symbicort 160mcg/4.5mcg Inhaler 2, puffs, Inhalation, 2 times a day, use with spacer chamber, # 10.2 Gm, Refills 0, Tot. Refills 0,Maintenance, 12/08/23 13:44:00 EDT, Aerosol, Route to Pharmacy Electronically, [id number], [email or web address][id number], 160,... Start Date: 12/08/23 Stop Date: 01/07/24 [...] Care Team Personnel Name: Saadia Abdalla Position: [facility] Onco RN Member Role: Primary Care Nurse Name: Janna Sibley MD Position: [facility] Physician - Primary Care Member Role: PCP Address: Address: [address] [place] [address] [address] [place], [place] [address] Name: Aislinn Mccauley RN Position: [facility] RN Member Role: Primary Care Nurse Care Team Related Persons Name: AMIRA MURPHY Address: home [address] [place] [address] Name: AMIRA MURPHY Address: home [address] [facility] [address] Name: AMIRA MURPHY Address: home [address] [place] [address] Name: TITO MURPHY Address: [address] [address] Name: TITO MURPHY Address: [place] [address] [facility] [place] [address] Name: TITO MURPHY Address: [address] [address]
--- OUTSIDE RECORDS SUMMARY | 2024-02-28 23:28 | XMS_ITS | Continuity of Care Document ---
Author Organization [facility] Adult Address [address] [place] [address]- Care Team Providers Care Parcel Post Order Clerk Name Role Phone Toñito COLE, Dereckohiohealth [facility] hospitaljuan Primary Care Physician Encounter [facility] [place] Date(s): 01/10/24 - 02/09/24 [facility] [address] [place] [address]- Allergies, Adverse Reactions, Alerts Substance Reaction Severity [...] vaccine, inactivated 6 04/26/09 Gi henri SARS-CoV-2(COVID-19)mRNA-LNP vac([id number]) 04/10/23 Recorded [id number]-RnZ-0vRGH 12y+ bivalent booster vax 03/12/22 Recorded SARS-CoV-2 mRNA (bjhimbn-esqf-dlqgz) vax 10/17/21 Recorded SARS-CoV-2 (COVID-19) mRNA BNT-162b2 vac 03/28/21 Recorded SARS-CoV-2 (COVID-19) mRNA BNT-162b2 vac 08/15/20 Given SARS-CoV-2 (COVID-19) mRNA BNT-162b2 vac 07/25/20 Recorded pneumococcal 23-valent vaccine 09/24/16 Given pneumococcal 23-valent vaccine 7 10/24/04 Given pneumococcal 13-valent vaccine 07/10/15 Given Zoster Vaccine Live 8 09/13/08 Given diphtheria-tetanus toxoids (DT) 10/29/03 Given 1Result Comment: [facility] 19023-408-63 2Admin Note: [facility] 3[facility]: [facility] 4Admin Note: Joseph Rivera [facility] 5Result Comment: [07/10/2015] joseph rivera 6Admin [...] 13:21:00 EDT, Aerosol, Route to Pharmacy Electronically, [id number], [facility]... Start Date: 10/13/23 Stop Date: 10/07/24 Status: Ordered atorvastatin 40 mg oral tablet 1 tablet = 40 mg, By Mouth, Daily, # 90 tablet, 0 Refills, Maintenance, 01/17/24 9:47:00 EDT, Tablet, [facility] #[id number], Partial fill upon patient request if the [...] 13:44:00 EDT, Aerosol, Route to Pharmacy Electronically, [id number], [facility] #[id number], 160,... Start Date: 12/08/23 Stop Date: 01/07/24 [...] Primary Care Member Role: PCP Address: Address: [address] [place] [address] [address] [place], [place] [address] Name: Aislinn Mccauley RN Position: [facility] RN Member Role: Primary Care Nurse Care Team Related Persons Name: AMIRA MURPHY Address: [address] [address] Name: AMIRA MURPHY Address: home [address] [place] [address] [place] Name: AMIRA MURPHY Address: home [address] [place] [address] Name: TITO MURPHY Address: [address] [place] [address] [place] Name: TITO MURPHY Address: home [address] [place] [address] Name: TITO MURPHY Address: home [address] [place] [address]
--- OUTSIDE RECORDS SUMMARY | 2024-02-28 23:29 | XMS_ITS | Continuity of Care Document ---
Author Organization [facility] Adult Address [address] [place] [address]- Care Team Providers Care Trapeze Artist Name Role Phone Toñito COLE, [facility] Primary Care Physician [place] [facility] [place] Date[place]): 01/15/24 - 02/14/[address] [address]- Allergies, Adverse Reactions, Alerts Substance Reaction Severity [...] vaccine, inactivated 6 04/26/09 Gi henri SARS-CoV-2(COVID-19)mRNA-LNP vac([id number]) 04/10/23 Recorded [id number]-MfJ-1dLTZ 12y+ bivalent booster vax 03/12/22 Recorded SARS-CoV-2 mRNA (gfciuid-bsnh-ltqjp) vax 10/17/21 Recorded SARS-CoV-2 (COVID-19) mRNA BNT-162b2 vac 03/28/21 Recorded SARS-CoV-2 (COVID-19) mRNA BNT-162b2 vac 08/15/20 Given SARS-CoV-2 (COVID-19) mRNA BNT-162b2 vac 07/25/20 Recorded pneumococcal 23-valent vaccine 09/24/16 Given pneumococcal 23-valent vaccine 7 10/24/04 Given pneumococcal 13-valent vaccine 07/10/15 Given Zoster Vaccine Live 8 09/13/08 Given diphtheria-tetanus toxoids (DT) 10/29/03 Given 1Result Comment: [facility] 49051-479-61 2Admin Note: [facility] 3Admin Note: [facility] 4Admin Note: Chelo Rivera [facility] 5Result Comment: [07/10/2015] chelo rivera 6Admin [...] 13:21:00 EDT, Aerosol, Route to Pharmacy Electronically, [id number], [facility]... Start Date: 10/13/23 Stop Date: 10/07/24 Status: Ordered atorvastatin 40 mg oral tablet 1 tablet = 40 mg, By Mouth, Daily, # 90 tablet, 0 Refills, Maintenance, 01/17/24 9:47:00 EDT, Tablet, [id number], Partial fill upon patient request if the [...] tablet, By Mouth, Daily, # 90 tablet, 0 Refills, Maintenance, 02/14/24 16:50:00 EDT, [facility], 160, cm, 02/04/24 9:22:00 EDT, Height, 73, kg, 01/18/24 15:22:00 EDT, Dry Weight Start Date: 02/14/24 Status: Ordered lamotrigine 100 mg oral tablet [...] 13:44:00 EDT, Aerosol, Route to Pharmacy Electronically, [id number], [facility] #[id number], 160,... Start Date: 12/08/23 Stop Date: 01/07/24 [...] Care Team Personnel Name: Saadia Abdalla Position: [facility] Onco RN Member Role: Primary Care Nurse Name: Janna Sibley MD Position: [facility] Physician - Primary Care Member Role: PCP Address: Address: [address] [place] [id number] Name: Aislinn Mccauley RN Position: [facility] RN Member Role: Primary Care Nurse Care Team Related Persons Name: AMIRA MURPHY Address: [address] [address] Name: AMIRA MURPHY Address: [address] [place] [address] [place] Name: AMIRA MURPHY Address: home [address] [place] [address] Name: TITO MURPHY Address: [address] [place] [address] [place] Name: TITO MURPHY Address: [address] [place] [address] Name: TITO MURPHY Address: home [address] [place] [address]
--- OUTSIDE RECORDS SUMMARY | 2024-02-28 23:29 | XMS_ITS | Continuity of Care Document ---
Author Organization [facility] Address [address] [place] [address]- Care Team Providers Care Computerized Machine Fabric Cutter Name Role Phone Toñito COLE, Janna Primary Care Physician ( [phone] Encounter [facility] Date(s): 10/26/23 - 12/28/23 [facility] [address] [place] [address] Discharge Disposition: A-D/C Home Attending Physician: Jessica Gallegos MD Admitting Physician: Jessica Gallegos MD Referring [...] vaccine, inactivated 6 04/26/09 Gi henri SARS-CoV-2(COVID-19)mRNA-LNP vac([id number]) 04/10/23 Recorded [id number]-VgI-2nSCQ 12y+ bivalent booster vax 03/12/22 Recorded SARS-CoV-2 mRNA (aznevyg-zhvk-ixvhm) vax 10/17/21 Recorded SARS-CoV-2 (COVID-19) mRNA BNT-162b2 vac 03/28/21 Recorded SARS-CoV-2 (COVID-19) mRNA BNT-162b2 vac 08/15/20 Given SARS-CoV-2 (COVID-19) mRNA BNT-162b2 vac 07/25/20 Recorded pneumococcal 23-valent vaccine 09/24/16 Given pneumococcal 23-valent vaccine 7 10/24/04 Given pneumococcal 13-valent vaccine 07/10/15 Given Zoster Vaccine Live 8 09/13/08 Given diphtheria-tetanus toxoids (DT) 10/29/03 Given 1Result Comment: [facility] 60659-797-13 2Admin [facility] 4Admin Note: Joseph Rivera [facility] pallavi [place] 5Result Comment: [07/10/2015] joseph rivera 6Admin Note: Pallavi 7Admin Note: Pallavi 8Admin Note: diluent lot 3089U Exp 08/28 Medications albuterol CFC free 90 mcg/inh inhalation aerosol 2, puffs, Inhalation, 4 times a day, PRN, Urgent use with spacer chamber, # 18 Gm, Refills 3, Tot. Refills 3, Maintenance, 10/13/23 13:21:00 EDT, Aerosol, Route to Pharmacy Electronically, [id number], [facility]... Start Date: 10/13/23 [...] 12/10/23 16:11:00 EDT, Route to Pharmacy Electronically, [facility][id number], Partial fill upon patient request if the [...] 0 Refills, Maintenance, 06/16/23 10:10:00 EST, Tablet, [email or web address][id number], Part... Start Date: 06/16/23 Status: Ordered omeprazole [...] 13:44:00 EDT, Aerosol, Route to Pharmacy Electronically, [id number], [facility] #[id number], 160,... Start Date: 12/08/23 Stop Date: 01/07/24 [...] Sibley MD Position: [facility] Physician - Primary Care Member Role: PCP Address: Address: [address] [facility] [address] [place] [address]- Name: Aislinn Mccauley RN Position: [facility] RN Member Role: Primary Care Nurse Name: Jessica Gallegos MD Position: [facility] Physician - Oncology Med Service: Hematology & Oncology Member Role: Admitting Physician Address: Address: [address] [facility] [place] [address]- Care Team Related Persons Name: AMIRA MURPHY Address: [address] [facility] [address] Name: AMIRA MURPHY Address: [address] [address] Name: AMIRA MURPHY Address: [address] [address] [place] Name: TITO MURPHY Address: [address] [address] [place] Name: TITO MURPHY Address: [address] [address] Name: TITO MURPHY Address: [address] [address]
--- OUTSIDE RECORDS SUMMARY | 2024-02-28 23:29 | XMS_ITS | Continuity of Care Document ---
Author Organization [facility] Address [address] [place] [address]- Care Team Providers Care Terminal Operations Supervisor Name Role Phone Toñito COLE, [facility] center[facility] Primary Care Physician Encounter [facility] [place] Date(s): 11/29/23 - 12/29/23 [facility] [address] [place] [address]- Allergies, Adverse Reactions, Alerts Substance Reaction Severity [...] vaccine, inactivated 6 04/26/09 Gi henri SARS-CoV-2(COVID-19)mRNA-LNP vac([id number]) 04/10/23 Recorded [id number]-GwH-6bHVH 12y+ bivalent booster vax 03/12/22 Recorded SARS-CoV-2 mRNA (vmuhtyp-ypxn-upjvx) vax 10/17/21 Recorded SARS-CoV-2 (COVID-19) mRNA BNT-162b2 vac 03/28/21 Recorded SARS-CoV-2 (COVID-19) mRNA BNT-162b2 vac 08/15/20 Given SARS-CoV-2 (COVID-19) mRNA BNT-162b2 vac 07/25/20 Recorded pneumococcal 23-valent vaccine 09/24/16 Given pneumococcal 23-valent vaccine 7 10/24/04 Given pneumococcal 13-valent vaccine 07/10/15 Given Zoster Vaccine Live 8 09/13/08 Given diphtheria-tetanus toxoids (DT) 10/29/03 Given 1Result Comment: [facility] 78844-060-15 2Admin Note: [facility] 3Admin Note: Joseph Phelan [place] 4Admin Note: Joseph Rivera [facility] [place]avi [place] 5Result Comment: [07/10/2015] joseph rivera 6Admin Note: Pallavi 7Admin Note: Pallavi 8Admin Note: diluent lot 3089U Exp 08/28 Medications albuterol CFC free 90 mcg/inh inhalation aerosol 2, puffs, Inhalation, 4 times a day, PRN, Urgent use with spacer chamber, # 18 Gm, Refills 3, Tot. Refills 3, Maintenance, 10/13/23 13:21:00 EDT, Aerosol, Route to Pharmacy Electronically, [id number], [facility]... Start Date: 10/13/23 Stop Date: [...] 11/30/23 1:02:00EDT, Route to Pharmacy Electronically, [facility], 160, cm, 11/09/23 11:30:00 EDT, [...] 12/10/23 16:11:00 EDT, Route to Pharmacy Electronically, [facility] #[id number], Partial fill upon patient request if the [...] 15:14:00 EDT, Route to Pharmacy Electronically, [facility], 160, cm, 12/01/23 9:58:00 EDT, Height, 77.3, kg, 10/29/23 13:00:00 EDT, Dry Weight Start Date: 12/06/23 Status: Ordered lisinopril 10 mg oral tablet See Instructions, TAKE 1 TABLET DAILY, # 90 tablet, Refills 1, Tot. Refills 1, Maintenance, 11/30/23 13:53:00 EDT, Instructions Replace Required Details, Route to Pharmacy Electronically, [facility], 160, cm, 11/09/23 11:30:00 EDT,... Start Date: 11/30/23 Status: Ordered Nitrostat 0.3 mg sublingual tablet 1 tablet = 0.3 mg, Sublingual, Every 5 minutes, PRN as needed for chest pain, not to exceed 3 doses/15 min--if pain persists, seek medical attention, # 25 tablet, 0 Refills, Maintenance, 06/16/23 10:10:00 EST, Tablet, [facility] #[id number], Part... Start Date: 06/16/23 Status: Ordered omeprazole 20 mg oral delayed release tablet 1 tablet = 20 mg, By Mouth, 2 times a day, # 180 tablet, 1 Refills, Maintenance, 07/20/23 13:18:00 EST, EC Tablet, [facility], Partial fill upon patient request [...] 13:44:00 EDT, Aerosol, Route to Pharmacy Electronically, [id number], [facility] #[id number], 160,... Start Date: 12/08/23 Stop Date: 01/07/24 [...] Care Team Personnel Name: Saadia Abdalla Position: [facility] Onco RN Member Role: Primary Care Nurse Name: Janna Sibley MD Position: [facility] Physician - Primary Care Member Role: PCP Address: Address: [address] [place] [address]- Name: Aislinn Mccauley RN Position: [facility] RN Member Role: Primary Care Nurse Care Team Related Persons Name: AMIRA MURPHY Address: home [address] [place] [address] [place] Name: AMIRA MURPHY Address: [address] [facility] [address] Name: AMIRA MURPHY Address: home [address] [place] [address] Name: TITO MURPHY Address: [address] [place] [address] [place] Name: TITO MURPHY Address: home [address] [place] [address] Name: TITO MURPHY Address: [address] [place] [address]
--- OUTSIDE RECORDS SUMMARY | 2024-02-28 23:30 | XMS_ITS | Continuity of Care Document ---
Author Organization [facility] Adult Address [address] [place] [address]- Care Team Providers Care Instrument And Controls Technician Name Role Phone Toñito COLE, [facility] Primary Care Physician Encounter [facility] [place] Date(s): 12/24/23 - 01/23/[address] [address]- Allergies, Adverse Reactions, Alerts Substance Reaction Severity [...] vaccine, inactivated 6 04/26/09 Gi henri SARS-CoV-2(COVID-19)mRNA-LNP vac([id number]) 04/10/23 Recorded [id number]-[id number] 12y+ bivalent booster vax 03/12/22 Recorded SARS-CoV-2 mRNA (ebzzzce-orey-berrq) vax 10/17/21 Recorded SARS-CoV-2 (COVID-19) mRNA BNT-162b2 vac 03/28/21 Recorded SARS-CoV-2 (COVID-19) mRNA BNT-162b2 vac 08/15/20 Given SARS-CoV-2 (COVID-19) mRNA BNT-162b2 vac 07/25/20 Recorded pneumococcal 23-valent vaccine 09/24/16 Given pneumococcal 23-valent vaccine 7 10/24/04 Given pneumococcal 13-valent vaccine 07/10/15 Given Zoster Vaccine Live 8 09/13/08 Given diphtheria-tetanus toxoids (DT) 10/29/03 Given 1Result Comment: [facility] 09222-079-08 2[facility] 3[facility] 4[facility] Note: [facility] 5Result Comment: [07/10/2015] zache nicole 6Admin Note: [place] 7Admin Note: [place] 8Admin Note: diluent lot [id number] Exp 08/28 Medications albuterol CFC free 90 mcg/inh inhalation aerosol 2, puffs, Inhalation, 4 times a day, PRN, Urgent use with spacer chamber, # 18 Gm, Refills 3, Tot. Refills 3, Maintenance, 10/13/23 13:21:00 EDT, Aerosol, Route to Pharmacy Electronically, [id number], [facility]... Start Date: 10/13/23 Stop Date: 10/07/24 Status: Ordered atorvastatin 40 mg oral tablet 1 tablet = 40 mg, By Mouth, Daily, # 90 tablet, 0 Refills, Maintenance, 01/17/24 9:47:00 EDT, Tablet, [facility] #[id number], Partial fill upon patient request if the prescription is for a schedule II opioid drug., 160, cm, 01/14/24 11:03:00 EDT,... Start Date: 01/17/24 Stop Date: 04/16/24 Status: Ordered Bactrim 400 mg-80 mg oral tablet 1 tablet, By Mouth, 2 times a day, for 10 days, # 20 tablet, 0 Refills, Acute 01/24/24 12:49:00 EDT, 01/14/24 12:49:00 EDT, Tablet, [id number], Partial fill upon patient request if the prescription is for a schedule II opioid drug., 1... Start Date: 01/14/24 Stop Date: 01/24/24 Status: Ordered calcium and vitamin D combination 315 mg-200 iu oral tablet 1 tablet, By Mouth, 2 times a day, # 120 tablet, 0 Refills, Maintenance, 04/15/20 10:06:00 EDT, Tablet Start Date: 04/15/20 Status: Ordered furosemide 40 mg oral tablet [...] Dry Weight Start Date: 12/06/23 Status: Ordered omeprazole 20 mg oral delayed [...] 13:44:00 EDT, Aerosol, Route to Pharmacy Electronically, [id number], [facility] #[id number], 160,... Start Date: 12/08/23 Stop Date: 01/07/24 [...] Janna Sibley MD Position: [facility] Physician - Primary Care Member Role: PCP Address: Address: [address] [place] [id number] Name: Aislinn Mccauley RN Position: [facility] RN Member Role: Primary Care Nurse Care Team Related Persons Name: AMIRA MURPHY Address: [address] [place] [address] Name: AMIRA MURPHY Address: [address] [address] Name: AMIRA MURPHY Address: home [address] [facility] [address] Name: TITO MURPHY Address: home [address] [place] [address] [place] Name: TITO MURPHY Address: [address] [place] [address] Name: TITO MURPHY Address: home [address] [place] [address]
--- OUTSIDE RECORDS SUMMARY | 2024-02-28 23:30 | XMS_ITS | Continuity of Care Document ---
Author Organization [facility] Adult Address [address] [place] [address]- Care Team Providers Care High Speed Operator Name Role Phone Toñito COLE, Janna Primary Care Physician Encounter [facility] [place] Date(s): 01/14/24 - 01/21/[address] [address]- Encounter Diagnosis Diastolic dysfunction(Discharge Diagnosis) - 01/14/24 Hypertension(Discharge Diagnosis) - 01/14/24 Community acquired pneumonia(Discharge Diagnosis) - 01/14/24 Acute exacerbation of congestive heart failure(Discharge Diagnosis) - 01/14/24 Chronic polyneuropathy(Discharge Diagnosis) - 01/14/24 Open wound of right lower leg(Discharge Diagnosis) - 01/14/24 Moderate persistent asthma(Discharge Diagnosis) - 01/14/24 Attending Physician: Janna Sibley MD Allergies, Adverse [...] vaccine, inactivated 6 04/26/09 Gi henri SARS-CoV-2(COVID-19)mRNA-LNP vac([id number]) 04/10/23 Recorded [id number]-GcH-4fMMG 12y+ bivalent booster vax 03/12/22 Recorded SARS-CoV-2 mRNA (nmgorfv-ixts-cufvu) vax 10/17/21 Recorded SARS-CoV-2 (COVID-19) mRNA BNT-162b2 vac 03/28/21 Recorded SARS-CoV-2 (COVID-19) mRNA BNT-162b2 vac 08/15/20 Given SARS-CoV-2 (COVID-19) mRNA BNT-162b2 vac 07/25/20 Recorded pneumococcal 23-valent vaccine 09/24/16 Given pneumococcal 23-valent vaccine 7 10/24/04 Given pneumococcal 13-valent vaccine 07/10/15 Given Zoster Vaccine Live 8 09/13/08 Given diphtheria-tetanus toxoids (DT) 10/29/03 Given 1Result Comment: [facility] 38688-045-89 2[facility] 3Admin Note: [facility] 4Admin Note: [facility] 5Result Comment: [07/10/2015] [facility] 6Admin Note: [place] 7Admin Note: [place] 8Admin Note: diluent lot 3089U Exp 08/28 Medications albuterol CFC free 90 mcg/inh inhalation aerosol 2, puffs, Inhalation, 4 times a day, PRN, Urgent use with spacer chamber, # 18 Gm, Refills 3, Tot. Refills 3, Maintenance, 10/13/23 13:21:00 EDT, Aerosol, Route to Pharmacy Electronically, [id number], [facility]... Start Date: 10/13/23 Stop Date: 10/07/24 Status: Ordered atorvastatin 40 mg oral tablet 1 tablet = 40 mg, By Mouth, Daily, # 90 tablet, 0 Refills, Maintenance, 01/17/24 9:47:00 EDT, Tablet, [facility] #[id number], Partial fill upon patient request if the prescription is for a schedule II opioid drug., 160, cm, 01/14/24 11:03:00 EDT,... Start Date: 01/17/24 Stop Date: 04/16/24 Status: Ordered Bactrim 400 mg-80 mg oral tablet 1 tablet, By Mouth, 2 times a day, for 10 days, # 20 tablet, 0 Refills, Acute 01/24/24 12:49:00 EDT, 01/14/24 12:49:00 EDT, Tablet, [facility][id number], Partial fill upon patient request if the [...] 15:14:00 EDT, Route to Pharmacy Electronically, [facility], 160, cm, 12/01/23 9:58:00 EDT, [...] 13:44:00 EDT, Aerosol, Route to Pharmacy Electronically, [id number], [facility] #[id number], 160,... Start Date: 12/08/23 Stop Date: 01/07/24 [...] Effective Dates Health Status Clinical Service Informant Diastolic dysfunction Discharge Diagnosis 01/14/24 Hypertension Discharge Diagnosis 01/14/24 Community acquired pneumonia Discharge Diagnosis 01/14/24 Acute exacerbation of congestive heart failure Discharge Diagnosis 01/14/24 Chronic polyneuropathy Discharge Diagnosis 01/14/24 Open wound of right lower leg Discharge Diagnosis 01/14/24 Moderate persistent asthma Discharge Diagnosis 01/14/24 Vital Signs Most recent to oldest [Reference Range]: 1 Height 160 cm (01/14/24 11:03 AM) Weight 75.3 kg (01/14/24 11:03 AM) Oxygen Saturation [94-100 %] 96 % (01/14/24 11:03 AM) Pulse Rate [55-90 bpm] 71 bpm (01/14/24 11:03 AM) Body Mass Index [18.5-24.99 kg/m2] 29.41 kg/m2 *H* (01/14/24 11:03 AM) Blood Pressure [90-138/55-84 mm Hg] 101/ 58mm Hg (01/14/24 11:03 AM) Temperature [96.8-100.4 DegF] 97.4 DegF (01/14/24 11:03 AM) Mode of Delivery (Oxygen) Room air (01/14/24 11:03 AM) Blood pressure sites Arm, right (01/14/24 11:03 AM) Temperature Route Oral (01/14/24 11:03 AM) Weight Obtained Via Standing scale (01/14/24 11:03 AM) Social History Social History Type Response Smoking Status Never smoker entered on: 05/23/14 Sex Female EKG study * Event Display: ECG 12-Lead Authored Date: Please click on pdf link to open report * Event Display: ECG 12-Lead Authored Date: Ventricular Rate: 63 BPM Atrial Rate: 63 BPM P-R Interval: 192 ms QRS Duration: 142 ms Q-T Interval: 460 ms QTC Calculation(Bazett): 470 ms P Eagan: 33 degrees R Eagan: 4 degrees T Eagan: 98 degrees Normal sinus rhythm Left bundle branch block Abnormal ECG When compared with ECG of 26-DEC-2023 10:25, No significant change was found Confirmed by TUTU JONES ([id number]) on 01/14/2024 12:29:23 PM Wells: TUTU JONES Note * Arti Teran: PERFORM Event Display: Patient Education/Instruction Authored Date: Ambulatory Adult [facility] [address] [place] [address] Name: MILLER MURPHY : 1935?? Visit: 01/14/2024 11:01?? Ambulatory Visit Instructions ?? Your Care Team Primary Care Provider Janna Sibley MD? This Visit Provider Janna Sibley MD Your Diagnosis SOB (shortness of breath) Vitals Signs Temperature: 97.4 DegF Height: 160 cm Pulse Rate: 71 bpm Weight: 75.3 kg Systolic Blood Pressure: 101 mm Hg Body Mass Index:??29.41 kg/m2??High Diastolic Blood Pressure: 58 mm Hg Body surface area: 1.83 Oxygen Saturation: 96 % ?? What to do next Scheduled Follow-Up Appointments Wednesday 11:10 AM EDT ?? With: Janna Sibley MD Where: [facility] [address] [place] [address]- Status: Pending Wednesday 9:30 AM EDT ?? With: Michelle Jennings MD Where: [facility] [address] [facility] [address], [address] [place] [address]- Status: Pending 2023 3:00 PM EDT ?? With: Last Hatfield MD Where: [facility] Status: Pending Medications The list below reflects the information in our records and provided by you today along with any changes made during this visit. Please continue your medications until treatment is completed or stopped by your provider. If this is different from the information you have or there are other questions,please contact the prescribing provider. What How Much When Instructions Changed Furosemide (furosemide 40 mg oral tablet) 1 tab(s) Oral Daily Pickup at [facility] Unchanged Albuterol (albuterol CFC free 90 mcg/ inh inhalation aerosol) 2 puff(s) Inhalation 4 times a day as needed for Wheezing/Shortness of Breath Duration: 90 Days Urgent use with spacer chamber ?? Unchanged Atorvastatin (atorvastatin 40 mg oral tablet) 1 tab(s) Oral Daily Duration: 90 Days Unchanged Budesonide-Formoterol (Symbicort 160mcg/ 4.5mcg Inhaler) 2 puff(s) Inhalation Twice a day Duration: 30 Days use with spacer chamber ?? Unchanged Calcium And Vitamin D Combination (calcium and vitamin D combination 315 mg-200 iu oral tablet) 1 tab(s) Oral Twice a day Unchanged Doxycycline (doxycycline hyclate 100 mg oral capsule) 1 capsule Oral Twice a day Duration: 10 Days Unchanged Gabapentin (gabapentin 300 mg oral capsule) 1 capsule Oral 3 times a day Unchanged Lamotrigine (lamotrigine 100 mg oral tablet) 1 tab(s) Oral Twice a day Unchanged Lamotrigine (lamotrigine 25 mg oral tablet) 2 tab(s) Oral Twice a day Unchanged Multivitamin With Minerals (PreserVision AREDS 2 oral capsule) Oral Daily Unchanged Omeprazole (omeprazole 20 mg oral delayed release tablet) 1 tab(s) Oral Twice a day Duration: 90 Days Unchanged vibegron (Gemtesa 75 mg oral tablet) 1 tab(s) Oral Daily Pharmacy Information [facility]: [address] [place] [place] [id number] [phone] ?? What How Much When Comments Stop Taking Amlodipine (amLODIPine 10 mg oral tablet) 1 tab(s) Oral Daily Stop Taking Chlorthalidone (chlorthalidone 25 mg oral tablet) 0.5 tab(s) Oral Daily Stop Taking Clobetasol Topical (Clobetasol (Eqv-Temovate E)) Topically Twice a day Stop Taking Lisinopril (lisinopril 10 mg oral tablet) See instructions TAKE 1 TABLET DAILY ?? Stop Taking Nitroglycerin (Nitrostat 0.3 mg sublingual tablet) 1 tab(s) Sublingual Every 5 minutes as needed for as needed for chest pain not to exceed 3 doses/ 15 min--if pain persists, seek medical attention ?? Medications and Immunizations Administered Medications Given During [...] are strongly encouraged to quit. Please call [employer] [facility] at [phone] or [phone] ([phone]) or log in to [email or web address] for referrals to smoking cessation programs. ?? The National Suicide Prevention Hotline is available 11/01 if you or someone you know needs to find a reason to keep living. By calling 8-763-143-[employer] (TUGG) (0389) you'll be connected to a skilled, trained counselor at a crisis center in your area. [facility] You can view and manage your care through the patient portal or by using a health care patsy of your choosing. [employer] is a website that allows you to securely view your medical information including your hospital discharge summary, office visit summaries, medications and follow-up visits. You can also request appointments, renew medications, and request access to your medical information using a health care patsy of your choosing, or just ask a question. You can enroll at [email or web address] or register during your next office visit. [facility], in keeping with [place] guidance, no longer requires face masks for [...] care provider, you may find a [facility] provider by calling [facility] at [phone]. Patient Care team information Care Team Personnel Name: Saadia Abdlala Position: [facility] Onco RN Member Role: Primary Care Nurse Name: Janna Sibley MD Position: [facility] Physician - Primary Care Member Role: PCP Address: Address: [address] [place] [address]- Name: Aislinn Mccauley RN Position: [facility] RN Member Role: Primary Care Nurse Care Team Related Persons Name: AMIRA MURPHY Address: [address] [place], [place] Name: AMIRA MURPHY Address: [address] [place], [place] Name: AMIRA MURPHY Address: home [address] [facility] [address] [address] Name: TITO MURPHY Address: [address] [place] [address] [place] Name: TITO MURPHY Address: home [address] [place] [address] Name: TITO MURPHY Address: home [address] [place] [address]
--- OUTSIDE RECORDS SUMMARY | 2024-02-28 23:30 | XMS_ITS | Continuity of Care Document ---
Author Organization [facility] Adult Address [address] [place] [address]- Care Team Providers Care Business Services Specialist Sales Name Role Phone Toñito COLE, [facility] Primary Care Physician En[place] [facility] [place] Date(s): 01/10/24 - 02/09/24 [facility] Adult [address] [place] [address]- Allergies, Adverse Reactions, Alerts Substance Reaction Severity [...] Marty rded influenza virus vaccine, inactivated 04/02/14 Matry rded influenza virus vaccine, inactivated 03/14/13 Give n influenza virus vaccine, inactivated 05/04/12 Marty rded influenza virus vaccine, inactivated 04/03/11 Marty rded influenza virus vaccine, inactivated 05/02/10 Give n influenza virus vaccine, inactivated 6 04/26/09 Gi henri SARS-CoV-2(COVID-19)mRNA-LNP vac([id number]) 04/10/23 Recorded [id number]-[id number]-4jUNW 12y+ bivalent booster vax 03/12/22 Recorded SARS-CoV-2 mRNA (jxxdqzo-sajg-fcjof) vax 10/17/21 Recorded SARS-CoV-2 (COVID-19) mRNA BNT-162b2 vac 03/28/21 Recorded SARS-CoV-2 (COVID-19) mRNA BNT-162b2 vac 08/15/20 Given SARS-CoV-2 (COVID-19) mRNA BNT-162b2 vac 07/25/20 Recorded pneumococcal 23-valent vaccine 09/24/16 Given pneumococcal 23-valent vaccine 7 10/24/04 Given pneumococcal 13-valent vaccine 07/10/15 Given Zoster Vaccine Live 8 09/13/08 Given diphtheria-tetanus toxoids (DT) 10/29/03 Given 1Result Comment: [facility] 89772-347-67 2[facility] 3Admin Note: Joseph Phelan [place] 4Admin Note: Joseph Rivera [facility] 5Result Comment: [07/10/2015] joseph rivera 6Admin Note: [...] 13:21:00 EDT, Aerosol, Route to Pharmacy Electronically, [id number], [facility]... Start Date: 10/13/23 Stop Date: 10/07/24 Status: Ordered atorvastatin 40 mg oral tablet 1 tablet = 40 mg, By Mouth, Daily, # 90 tablet, 0 Refills, Maintenance, 01/17/24 9:47:00 EDT, Tablet, [facility] #[id number], Partial fill upon patient request if the [...] 13:44:00 EDT, Aerosol, Route to Pharmacy Electronically, [id number], [facility] #[id number], 160,... Start Date: 12/08/23 Stop Date: 01/07/24 [...] Primary Care Member Role: PCP Address: Address: [address] [place] [address] [address] [place], [place] [address] Name: Aislinn Mccauley RN Position: [facility] RN Member Role: Primary Care Nurse Care Team Related Persons Name: AMIRA MURPHY Address: [address] [address] Name: AMIRA MURPHY Address: home [address] [place] [address] [place] Name: AMIRA MURPHY Address: home [address] [place] [address] Name: TITO MURPHY Address: [address] [place] [address] [place] Name: TITO MURPHY Address: home [address] [place] [address] Name: TITO MURPHY Address: home [address] [place] [address]
--- OUTSIDE RECORDS SUMMARY | 2024-02-28 23:30 | XMS_ITS | Continuity of Care Document ---
Author Organization [facility] Adult Address [address] [place] [address]- Care Team Providers Care Lab Support Service Tech Name Role Phone Toñito COLE, [facility] Primary Care Physician Encounter [facility] [place] Date(s): 01/10/24 - 02/09/24 [facility] Adult [address] [place] [address]- Allergies, Adverse Reactions, Alerts Substance Reaction Severity [...] vaccine, inactivated 6 04/26/09 Gi henri SARS-CoV-2(COVID-19)mRNA-LNP vac(shx077) 04/10/23 Recorded [id number]-QbP-3oGYG 12y+ bivalent booster vax 03/12/22 Recorded SARS-CoV-2 mRNA (rswrwcu-exgd-ssxbr) vax 10/17/21 Recorded SARS-CoV-2 (COVID-19) mRNA BNT-162b2 vac 03/28/21 Recorded SARS-CoV-2 (COVID-19) mRNA BNT-162b2 vac 08/15/20 Given SARS-CoV-2 (COVID-19) mRNA BNT-162b2 vac 07/25/20 Recorded pneumococcal 23-valent vaccine 09/24/16 Given pneumococcal 23-valent vaccine 7 10/24/04 Given pneumococcal 13-valent vaccine 07/10/15 Given Zoster Vaccine Live 8 09/13/08 Given diphtheria-tetanus toxoids (DT) 10/29/03 Given 1Result Comment: [facility] 24617-656-92 2Admin [facility] 3[facility] 4Admin Note: Joseph Rivera [facility] 5Result Comment: [07/10/2015] joseph rivera 6Admin Note: [...] 13:21:00 EDT, Aerosol, Route to Pharmacy Electronically, [id number], [facility]... Start Date: 10/13/23 Stop Date: 10/07/24 Status: Ordered atorvastatin 40 mg oral tablet 1 tablet = 40 mg, By Mouth, Daily, # 90 tablet, 0 Refills, Maintenance, 01/17/24 9:47:00 EDT, Tablet, [facility] #[id number], Partial fill upon patient request if the [...] 13:44:00 EDT, Aerosol, Route to Pharmacy Electronically, [id number], [facility] [facility] [employer] #[id number], 160,... Start Date: 12/08/23 Stop Date: 01/07/24 [...] Care Team Personnel Name: Saadia Abdalla Position: [facility] Onco RN Member Role: Primary Care Nurse Name: Janna Sibley MD Position: [facility] Physician - Primary Care Member Role: PCP Address: Address: [address] [place] [address] [address] [place], [place] [address] Name: Aislinn Mccauley RN Position: [facility] RN Member Role: Primary Care Nurse Care Team Related Persons Name: AMIRA MURPHY Address: [address] [address] Name: AMIRA MURPHY Address: [address] [place] [address] [place] Name: AMIRA MURPHY Address: [address] [place] [address] Name: TITO MURPHY Address: [address] [place] [address] [place] Name: TITO MURPHY Address: [address] [place] [address] Name: TITO MURPHY Address: [address] [place] [address]
--- OUTSIDE RECORDS SUMMARY | 2024-02-28 23:31 | XMS_ITS | Continuity of Care Document ---
Author Organization [facility] Adult Address [address] [place] [address]- Care Team Providers Care Shaper Set Up Operator Name Role Phone Toñito COLE, [facility]ula [facility] hospitaljuan Primary Care Physician Encounter [facility] [place] Date(s): 01/10/24 - 02/09/24 [facility] Adult [address] [place] [address]- Allergies, Adverse Reactions, Alerts Substance Reaction Severity [...] vaccine, inactivated 6 04/26/09 Gi henri SARS-CoV-2(COVID-19)mRNA-LNP vac([id number]) 04/10/23 Recorded [id number]-JlL-1zCIX 12y+ bivalent booster vax 03/12/22 Recorded SARS-CoV-2 mRNA (ahmadnm-gbay-kuyza) vax 10/17/21 Recorded SARS-CoV-2 (COVID-19) mRNA BNT-162b2 vac 03/28/21 Recorded SARS-CoV-2 (COVID-19) mRNA BNT-162b2 vac 08/15/20 Given SARS-CoV-2 (COVID-19) mRNA BNT-162b2 vac 07/25/20 Recorded pneumococcal 23-valent vaccine 09/24/16 Given pneumococcal 23-valent vaccine 7 10/24/04 Given pneumococcal 13-valent vaccine 07/10/15 Given Zoster Vaccine Live 8 09/13/08 Given diphtheria-tetanus toxoids (DT) 10/29/03 Given 1Result Comment: [facility] 90266-939-07 2Admin Note: [facility] 3Admin Note: Joseph Phelan [place] 4Admin Note: Joseph Rivera [facility] [place] 5Result Comment: [07/10/2015] joseph rivera 6Admin Note: [...] 13:21:00 EDT, Aerosol, Route to Pharmacy Electronically, [id number], [facility]... Start Date: 10/13/23 Stop Date: 10/07/24 Status: Ordered atorvastatin 40 mg oral tablet 1 tablet = 40 mg, By Mouth, Daily, # 90 tablet, 0 Refills, Maintenance, 01/17/24 9:47:00 EDT, Tablet, [facility] #[id number], Partial fill upon patient request if the [...] 13:44:00 EDT, Aerosol, Route to Pharmacy Electronically, [id number], [facility] #[id number], 160,... Start Date: 12/08/23 Stop Date: 01/07/24 [...] Primary Care Member Role: PCP Address: Address: [address] [place] [address] [address] [place], [place] [address] Name: Aislinn Mccauley RN Position: [facility] RN Member Role: Primary Care Nurse Care Team Related Persons Name: AMIRA MURPHY Address: [address] [address] Name: AMIRA MURPHY Address: [address] [place] [address] [place] Name: AMIRA MURPHY Address: [address] [place] [address] Name: TITO MURPHY Address: [address] [place] [address] [place] Name: TITO MURPHY Address: [address] [place] [address] Name: TITO MURPHY Address: [address] [place] [address]
--- OUTSIDE RECORDS SUMMARY | 2024-02-28 23:31 | XMS_ITS | Continuity of Care Document ---
Author Organization [facility] Adult Address [address] [place] [address]- Care Team Providers Care Law Writer Name Role Phone Toñito COLE, Janna Primary Care Physician Encounter [facility] Date(s): 12/24/23 - 01/27/[address] [address]- Attending Physician: Janna Sibley MD Allergies, Adverse [...] vaccine, inactivated 6 04/26/09 Gi henri SARS-CoV-2(COVID-19)mRNA-LNP vac([id number]) 04/10/23 Recorded [id number] 12y+ bivalent booster vax 03/12/22 Recorded SARS-CoV-2 mRNA (sgyyfmc-zwgo-udxex) vax 10/17/21 Recorded SARS-CoV-2 (COVID-19) mRNA BNT-162b2 vac 03/28/21 Recorded SARS-CoV-2 (COVID-19) mRNA BNT-162b2 vac 08/15/20 Given SARS-CoV-2 (COVID-19) mRNA BNT-162b2 vac 07/25/20 Recorded pneumococcal 23-valent vaccine 09/24/16 Given pneumococcal 23-valent vaccine 7 10/24/04 Given pneumococcal 13-valent vaccine 07/10/15 Given Zoster Vaccine Live 8 09/13/08 Given diphtheria-tetanus toxoids (DT) 10/29/03 Given 1Result Comment: [facility] [id number] 2Admin Note: [facility] high dose 3Admin Note: [facility] 4Admin Note: [facility] 5Result Comment: [07/10/2015] [facility] 6Admin Note: [place] 7Admin Note: [place] 8Admin Note: diluent lot [id number] Exp 08/28 Medications albuterol CFC free 90 mcg/inh inhalation aerosol 2, puffs, Inhalation, 4 times a day, PRN, Urgent use with spacer chamber, # 18 Gm, Refills 3, Tot. Refills 3, Maintenance, 10/13/23 13:21:00 EDT, Aerosol, Route to Pharmacy Electronically, [id number], [facility]... Start Date: 10/13/23 Stop Date: 10/07/24 Status: Ordered atorvastatin 40 mg oral tablet 1 tablet = 40 mg, By Mouth, Daily, # 90 tablet, 0 Refills, Maintenance, 01/17/24 9:47:00 EDT, Tablet, [facility] #[id number], Partial fill upon patient request if the [...] 13:44:00 EDT, Aerosol, Route to Pharmacy Electronically, [id number], [facility] #[id number], 160,... Start Date: 12/08/23 Stop Date: 01/07/24 [...] Janna Sibley MD Position: [facility] Physician - Primary Care Member Role: PCP Address: Address: [address] [place] [address] [address] [place] [address]- [place] Name: Garrick HUA, Aislinn Position: S RN Member Role: Primary Care Nurse Care Team Related Persons Name: AMIRA MURPHY Address: home [address] [place] [address] Name: AMIRA MURPHY Address: [address] [address] [place] Name: AMIRA MURPHY Address: [address] [address] Name: TITO MURPHY Address: home [address] [place] [address] [place] Name: TITO MURPHY Address: [address] [address] Name: TITO MURPHY Address: [address] [address]
--- OUTSIDE RECORDS SUMMARY | 2024-02-28 23:31 | XMS_ITS | Continuity of Care Document ---
Author Organization [facility] Adult Address [address] [place] [address]- Care Team Providers Care Developmental Psychologist Name Role Phone Janna Sibley MD Primary Care Physician Encounter [facility] Date(s): 01/28/24 - 02/04/[address] [address]- Encounter Diagnosis Hypertension(Discharge Diagnosis) - 01/28/24 Open wound of right lower leg(Discharge Diagnosis) - 01/28/24 Attending Physician: Janna Sibley MD Allergies, Adverse [...] vaccine, inactivated 6 04/26/09 Gi henri SARS-CoV-2(COVID-19)mRNA-LNP vac([id number]) 04/10/23 Recorded [id number] 12y+ bivalent booster vax 03/12/22 Recorded SARS-CoV-2 mRNA (wxwekhn-wjer-cmkir) vax 10/17/21 Recorded SARS-CoV-2 (COVID-19) mRNA BNT-162b2 vac 03/28/21 Recorded SARS-CoV-2 (COVID-19) mRNA BNT-162b2 vac 08/15/20 Given SARS-CoV-2 (COVID-19) mRNA BNT-162b2 vac 07/25/20 Recorded pneumococcal 23-valent vaccine 09/24/16 Given pneumococcal 23-valent vaccine 7 10/24/04 Given pneumococcal 13-valent vaccine 07/10/15 Given Zoster Vaccine Live 8 09/13/08 Given diphtheria-tetanus toxoids (DT) 10/29/03 Given 1Result Comment: [facility] [id number] 2Admin Note: [facility] 3Admin Note: Joseph RIVER[facility] 4Admin Note: Ajite [facility] [place] 5Result Comment: [07/10/2015] joseph rivera 6Admin Note: [...] 13:21:00 EDT, Aerosol, Route to Pharmacy Electronically, [id number], [facility]... Start Date: 10/13/23 Stop Date: 10/07/24 Status: Ordered atorvastatin 40 mg oral tablet 1 tablet = 40 mg, By Mouth, Daily, # 90 tablet, 0 Refills, Maintenance, 01/17/24 9:47:00 EDT, Tablet, [facility] #[id number], Partial fill upon patient request if the [...] 13:44:00 EDT, Aerosol, Route to Pharmacy Electronically, [id number], [facility] #[id number], 160,... Start Date: 12/08/23 Stop Date: 01/07/24 [...] Status Clinical Service Informant Hypertension Discharge Diagnosis 01/28/24 Open wound of right lower leg Discharge Diagnosis 01/28/24 Vital Signs Most recent to oldest [Reference Range]: 1 Height 160 cm (01/28/24 11:16 AM) Weight 74.7 kg (01/28/24 11:16 AM) Oxygen Saturation [94-100 %] 98 % (01/28/24 11:16 AM) Pulse Rate [55-90 bpm] 68 bpm (01/28/24 11:16 AM) Body Mass Index [18.5-24.99 kg/m2] 29.18 kg/m2 *H* (01/28/24 11:16 AM) Blood Pressure [90-138/55-84 mm Hg] 114/ 67mm Hg (01/28/24 11:16 AM) Temperature [96.8-100.4 DegF] 97.8 DegF (01/28/24 11:16 AM) Blood pressure sites Arm, right (01/28/24 11:16 AM) Temperature Route Oral (01/28/24 11:16 AM) Social History Social History Type Response Smoking Status Never smoker entered on: 05/23/14 Sex Female Note * Bishnu Villanuevaed: PERFORM Event Display: Patient Education/Instruction Authored Date: [id number] Ambulatory Adult Visit Summary [facility] [address] [place], [place] [id number] Name: MILLER MURPHY : 1935?? Visit: 01/28/2024 11:10?? Ambulatory Visit Instructions ?? Your Care Team Primary Care Provider Janna Sibley MD? This Visit Provider Janna Sibley MD Your Diagnosis Hypertension Vitals Signs Temperature: 97.8 DegF Height: 160 cm Pulse Rate: 68 bpm Weight: 74.7 kg Systolic Blood Pressure: 114 mm Hg Body Mass Index:??29.18 kg/m2??High Diastolic Blood Pressure: 67 mm Hg Body surface area: 1.82 Oxygen Saturation: 98 % ?? What to do next Scheduled Follow-Up Appointments Wednesday 9:30 AM EDT ?? With: Michelle Jennings MD Where: [facility] [address], [address] [place] [address]- Status: Pending 2023 3:00 PM EDT ?? With: Last Hatfield MD Where: [facility] Status: Pending Follow-Up Appointments Follow Up with??Janna Sibley MD When:??05/05/2024 10:50 AM EST Why: 3MO RETURN Where: [address] [facility] [address] [place] [address]- Medications The list below reflects the information [...] 1 tab(s) Oral Twice a day Unchanged Furosemide (furosemide 40 mg oral tablet) 1 tab(s) Oral Daily Unchanged Gabapentin (gabapentin 300 mg oral capsule) [...] tab(s) Oral Daily Medications and Immunizations Administered Medications Given During [...] are strongly encouraged to quit. Please call [employer] at [phone] or 0-839-269Soup[employer]io ([phone]) or log in to [email or web address] for referrals to smoking cessation programs. ?? The National Suicide Prevention Hotline is available 11/01 if you or someone you know needs to find a reason to keep living. By calling 3-967-221-[employer] (8477) you'll be connected to a skilled, trained counselor at a crisis center in your area. [facility] You can view and manage your care through the patient portal or by using a health care patsy of your choosing. [employer] is a website that allows you to securely view your medical information including your hospital discharge summary, office visit summaries, medications and follow-up visits. You can also request appointments, renew medications, and request access to your medical information using a health care patsy of your choosing, or just ask a question. You can enroll at [email or web address] or register during your next office visit. [facility], in keeping with [facility] guidance, no longer requires face masks [...] primary care provider, you may find a [facility] provider by calling [facility] at [phone]. Patient Care team information Care Team Personnel Name: Saadia Abdalla Position: [facility] Onco RN Member Role: Primary Care Nurse Name: Janna Sibley MD Position: [facility] Physician - Primary Care Member Role: PCP Address: Address: [address] [facility] [address] [place] [address]- Name: Aislinn Mccauley RN Position: [facility] RN Member Role: Primary Care Nurse Care Team Related Persons Name: AMIRA MURPHY Address: [place] [address] [facility] [id number] Name: AMIRA MURPHY Address: [place] [address] [place] [address] Name: AMIRA MURPHY Address: [address] [address] Name: TITO MURPHY Address: [address] [address] Name: TITO MURPHY Address: [address] [address] Name: TITO MURPHY Address: [address] [address]
[2024-02-28 23:40] VITALS: BP 150/104; PULSE 60; RESP 16; TEMP 36.6; O2SAT 97
[2024-02-28 23:57] VITALS: O2SAT 99
[2024-02-29] VITALS (7 sets, daily range): BP systolic 146–167; BP diastolic 61–70; PULSE 54–96; RESP 12–20; TEMP 36.5–36.8; O2SAT 92–98
--- NOTE | 2024-02-29 02:12 | PC.NURSE ---
pt ambulated to the bathroom with one assist. did well
[2024-02-29] MEDS: cefTRIAXone sodium 1 GM in 0.9 % Sodium Chloride 50 ML IV (04:15)
[2024-02-29 04:18] LABS: Lactic Acid 0.5 mmol/L (0.5-2.0)
[2024-02-29 04:36] LABS: Troponin-I High Sensitivity 16.5 ng/L (<3.5-17.0)
--- NOTE | 2024-02-29 06:17 | PM.IMHP ---
History of Present Illness Date of Service: 02/29/24 Chief Complaint: Syncope This is a 88-year-old female with pertinent history of congestive heart failure with preserved ejection fraction, left bundle branch block, asthma not on home oxygen, fibromyalgia, SEBASTIAN on CPAP, history of melanoma, gastroesophageal reflux disease, overactive bladder, chronic unspecified polyneuropathy, mixed hyperlipidemia who presents to the emergency department for evaluation after a syncopal episode. Patient states while she was going from her bedroom to look for her phone outside her bedroom, she felt dizzy/lightheaded and passed out. She fell and hit her head. No chest pain or palpitations prior to the fall. No rhythmic jerking movement of extremities. Also endorses increased urinary frequency and change in odor of urine. No fever, chills, chest discomfort, palpitations, shortness of breath, abdominal pain, changes in bowel habits. In the emergency department, urine concerning for UTI. CT head without any acute abnormality. Review of Systems Constitutional: Constitutional: Reports no additional constitutional complaints ENT: Reports dizziness Cardiovascular: Cardiovascular: Reports no additional cardiovascular complaints and Reports syncope Respiratory: Respiratory: Reports no additional respiratory complaints Gastrointestinal: Gastrointestinal: Reports no additional gastrointestinal complaints Genitourinary: Genitourinary: Reports urinary urgency Neurologic: Reports dizziness and Reports syncope [facility] Medical History Hyperlipidemia Hypertension Left bundle branch block Urge incontinence SEBASTIAN on CPAP Fibromyalgia Chronic polyneuropathy History of melanoma Asthma Diastolic dysfunction Social History Household Members: Children Housing: House Do you presently have visiting nurse or other home services: No Unable to assess alcohol history related to: Unable to respond and Unknown Patient Tobacco Use Status: Never used Tobacco Smoked in Last 30 Days: No Use of substances other than those prescribed or required for medical reasons: No Advance Directives: Yes Advance Directives on File: Yes Advance Directives Date on File: 12/27/23 Do you have a plan to hurt others: No Plan service: No Meds Allergies Allergy/AdvReac Type Severity Reaction Status Date / Time hydroxyzine Allergy Hives Verified 02/28/24 18:30 imipramine Allergy Hives Verified 02/28/24 18:30 Home Medications ?Medication ?Instructions ?Recorded ?Confirmed ?Last Taken ?Type albuterol sulfate 90 mcg/actuation 2 inh inhalation DAILY PRN SOB 12/27/23 01/31/24 Unknown History aerosol inhaler budesonide-formoterol HFA 160 2 puff inhalation BID 12/27/23 01/31/24 12/26/23 History mcg-4.5 mcg/actuation aerosol inhaler calcium carbonate 600 mg-vitamin 1 tab PO BID 12/27/23 01/31/24 12/26/23 History D3 5 mcg (200 unit) tablet (Calcium 600 + D(3)) gabapentin 300 mg capsule 300 mg PO TID 12/27/23 01/31/24 12/26/23 History lamotrigine 100 mg tablet 100 mg PO BID 12/27/23 01/31/24 12/26/23 History lamotrigine 25 mg tablet 50 mg PO BID 12/27/23 01/31/24 12/26/23 History omeprazole 20 mg capsule,delayed 20 mg PO BID 12/27/23 01/31/24 12/26/23 History release vibegron 75 mg tablet (Gemtesa) 75 mg PO DAILY 12/27/23 01/31/24 12/26/23 History vit C 250 mg-vit E 90 mg-zinc 40 1 tab PO BID 12/27/23 01/31/24 12/26/23 History mg-copper 1 kl-gcomor-nvoubp capsule (PreserVision AREDS-2) Physical Exam Vital Signs and Narrative: Vital Signs: Last Vital Signs Temp 97.9 F 02/28/24 23:40 Pulse 56 02/29/24 03:48 Resp 13 02/29/24 03:48 BP 158/61 H 02/29/24 03:48 Pulse Ox 95 02/29/24 03:48 O2 Del Method Room Air 02/29/24 03:48 BMI result Body Mass Index 24.1 Elderly female lying in bed in no distress Neck supple, no JVD Regular rate and rhythm, S1-S2 heard Regular breath sounds bilaterally, no wheezing or crackles appreciated Abdomen soft nontender, no guarding, no rigidity Patient is awake, alert and oriented to self, place, time and person ; no focal motor deficit Psych: Normal mood No pedal edema Results Labs 02/28/24 19:02 02/28/24 19:02 Labs: Laboratory Results - last 24 hr 02/28/24 02/29/24 19:02 04:01 MCV 98.2 H MCH 32.4 MCHC 33.0 RDW 14.0 Plt Count 120 L D MPV 11.0 Immature Gran % (Auto) 0.4 Neut % (Auto) 59.3 Lymph % (Auto) 29.5 Nye % (Auto) 8.1 Eos % (Auto) 2.1 Baso % (Auto) 0.6 Lymph # (Auto) 2.0 Nye # (Auto) 0.6 Eos # (Auto) 0.1 Baso # (Auto) 0.0 Abs Immat Gran (auto) 0.03 Absolute Neuts (auto) 4.0 Absolute Nucleated RBC 0.000 Nucleated RBC % (auto) 0.0 PT 10.5 L INR 0.9 APTT 32.1 Anion Gap 15 Estim Creat Clear Calc 26.1 Estimated GFR 37 Random Glucose 129 H Lactic Acid 0.5 Calcium 9.6 Magnesium 2.5 Total Bilirubin 0.4 Direct Bilirubin 0.2 AST 21 ALT 15 Alkaline Phosphatase 89 Troponin I High Sens 19.9 H D 16.5 Total Protein 6.3 L Albumin 4.1 Urine Color Yellow Urine Appearance Turbid Urine pH 6.0 Ur Specific [place] 1.015 Urine Protein Trace Urine Glucose (UA) Negative Urine Ketones Negative Urine Blood Moderate (2+) H Urine Nitrite Negative Ur Leukocyte Esterase Large (3+) H Urine RBC 0-2 Urine WBC >50 H Ur Squamous Epith Cells 3-5 Urine Bacteria 4+ Hyaline Casts 3-5 Influenza Type A (PCR) NEGATIVE Influenza Type B (PCR) NEGATIVE RSV RNA Qual (PCR) NEGATIVE SARS-CoV-2 RNA (RT-PCR) NEGATIVE Imaging Radiologist's Impressions: Impressions Cervical Spine CT 02/28/24 18:31 IMPRESSION: 1. No acute intracranial hemorrhage or territorial infarction. 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 Scattered chronic-appearing deep hair matter lacunar infarcts. The possibility of a focal acute ischemic process cannot be conclusively ruled out on the basis of this study. 2. No evidence of acute cervical spine traumatic injury. Multilevel spondylosis with central disc protrusions at the C4 and C5 and C6-C7 levels. Mild to moderate degenerative disc disease at the C5-C6 level. Electronically signed by: David Carbone MD 02/28/2024 08:26 PM EDT RP Head CT 02/28/24 19:08 IMPRESSION: 1. No acute intracranial hemorrhage or territorial infarction. 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 Scattered chronic-appearing deep hair matter lacunar infarcts. The possibility of a focal acute ischemic process cannot be conclusively ruled out on the basis of this study. 2. No evidence of acute cervical spine traumatic injury. Multilevel spondylosis with central disc protrusions at the C4 and C5 and C6-C7 levels. Mild to moderate degenerative disc disease at the C5-C6 level. Electronically signed by: David Carbone MD 02/28/2024 08:26 PM EDT RP Assessment and Plan (1) Orthostatic syncope: Status: Acute Plan This is a 88-year-old female with pertinent history of congestive heart failure with preserved ejection fraction, left bundle branch block, asthma not on home oxygen, fibromyalgia, SEBASTIAN on CPAP, history of melanoma, gastroesophageal reflux disease, overactive bladder, chronic unspecified polyneuropathy, mixed hyperlipidemia, CKD stage 3 who presents to the emergency department for evaluation after a syncopal episode. #. Syncope, orthostatic: Will admit patient with cardiac monitoring. Resuscitating with IV crystalloids. Obtain orthostatic vital signs. #. Acute UTI: Initiating IV ceftriaxone while in the hospital. Monitor urine culture. No sepsis #. Congestive heart failure with preserved ejection fraction: No decompensation during admission. Hold furosemide in the setting of orthostasis. Resume as appropriate #. CKD stage 3: Creatinine stable #. Chronic unspecified polyneuropathy: On gabapentin #. Asthma: No exacerbation during admission. Continue home inhaler #. Gastroesophageal reflux disease: On PPI #. Overactive bladder: On Gemtesa Med rec pending DVT prophylaxis: Lovenox DNR/DNI Quality Stroke Does the patient have a stroke diagnosis?: No VTE Prior VTE?: No VTE Risk Level:: Medical - moderate - high VTE Device Contraindication: Treatment Not Indicated VTE Drug Contraindication: N/A - Med Ordered
[2024-02-29] MEDS: 0.9 % Sodium Chloride 500 ML IV (06:40)
--- NOTE | 2024-02-29 08:04 | PC.NURSE ---
alert and oriented with even and unlabored respirations. ambulated to the bathroom using cane independently with steady gait. denied dizziness upon ambulation. placed in hospital bed for comfort. daughter updated on plan of care. call pfeiffer remains within reach
[2024-02-29] MEDS: Enoxaparin Sodium 30 MG/0.3 ML SYRINGE SUBCUT (08:24)
--- NOTE | 2024-02-29 09:26 | PHA.MEDREC ---
Pharmacy Consult ? Medication Reconciliation Pharmacy has completed the medication reconciliation. Confirmed medications with list provided by patient and daughter Jesse at bedside. Daughter confirmed her mom took her medications last yesterday afternoon.
--- NOTE | 2024-02-29 09:31 | PHA.MEDREC ---
Addendum entered by Hazel Rodriguez RPh 02/29/24 10:04: Reviewed by [facility]. Patient list has Probiotic Capsule and Magnesium Capsule, will follow up on dose for both. Original Note: Pharmacy Consult ? Medication Reconciliation Pharmacy has completed the medication reconciliation. Confirmed medications with list provided by patient and daughter Jesse at bedside. Patient has a Patriotic Capsule and Magnesium Capsule that the patient takes but on the list from home there was no dosing listed, patient and daughter were not sure on them by the daughter states she will go to her moms and send her mom a photo of the mediations and dosing. Daughter confirmed her mom took her medications last yesterday afternoon.
--- NOTE | 2024-02-29 10:46 | HO.PM.IMPN ---
Subjective Subjective Date of Service: 02/29/24 Interval History: overall feeling better Physical Exam Vital Signs: Vital Signs: Last Vital Signs Temp 97.7 F 02/29/24 08:00 Pulse 67 02/29/24 08:00 Resp 12 02/29/24 08:00 BP 158/61 H 02/29/24 03:48 Pulse Ox 92 02/29/24 08:00 O2 Del Method Room Air 02/29/24 08:00 BMI result Body Mass Index 24.1 General: AO X 3, no acute distress Resp: CTA bilateral, no accessory muscles used CVS: S1,S2,RRR, murmur GI: soft, non tender, non distended Neuro: motor grossly intact, alert Psych: appropriate affect, appropriate insight Objective Data Active Medications Acetaminophen (Acetaminophen 325 Mg Tablet) 650 mg PO Q6H PRN PRN Reason: Pain, Mild (Pain Scale 1-3), fever or headache Albuterol Sulfate (Albuterol Sulfate 90 Mcg 8 Gm Inhaler) 2 puff INHALE DAILY PRN PRN Reason: Shortness of Breath Atorvastatin Calcium (Atorvastatin Calcium 40 Mg Tablet) 40 mg PO DAILY [facility] Calcium Carbonate (Calcium Carbonate 750 Mg Tab.Chew) 750 mg PO Q4H PRN PRN Reason: Heartburn Enoxaparin Sodium (Enoxaparin Sodium 30 Mg/0.3 Ml Syringe) 30 mg SUBCUT Q24H [facility] Last Admin: 02/29/24 08:24 Dose: 30 mg Documented By: HELENA Furosemide (Furosemide 40 Mg Tablet) 40 mg PO DAILY [facility]; Protocol Gabapentin (Gabapentin 300 Mg Capsule) 300 mg PO TID@0900,1300,1800 [facility] Ceftriaxone Sodium 1 gm/ (Sodium Chloride) 50 mls @ 100 mls/hr IV Q24H [facility] Lamotrigine (Lamotrigine 25 Mg Tablet) 25 mg PO BID@0900,1800 [facility] Lamotrigine (Lamotrigine 100 Mg Tablet) 100 mg PO BID@0900,1800 [facility] Magnesium Hydroxide (Milk Of Magnesia 30 Ml Oral.Susp) 30 ml PO DAILY PRN PRN Reason: Constipation Melatonin (Melatonin 3 Mg Tablet) 6 mg PO BEDTIME PRN PRN Reason: Insomnia Non-Formulary Medication (Fluticasone Propion-Salmeterol) 2 inhalation INHALE BID [facility] Non-Formulary Medication (Vit C,A-Kg-Ibrik-Lutein-Zeaxan [Preservision Areds-2]) 1 tab PO BID@0900,1800 [facility] Omeprazole (Omeprazole 20 Mg Capsule.Dr) 20 mg PO BID@0900,1800 [facility] Ondansetron HCl (Ondansetron Hcl 4 Mg/2 Ml Vial) 4 mg IVPUSH Q8H PRN PRN Reason: Nausea and Vomiting Sodium Chloride (0.9 % Sodium Chloride Flush 3 Ml Syringe) 3 ml IVFLUSH QSHIFT [facility] Last Admin: 02/29/24 08:03 Dose: Not Given Documented By: HELENA Non-Admin Reason: IV Running Labs 02/28/24 19:02 02/28/24 19:02 Labs: Laboratory Results - last 24 hr 02/28/24 02/29/24 19:02 04:01 MCV 98.2 H MCH 32.4 MCHC 33.0 RDW 14.0 Plt Count 120 L D MPV 11.0 Immature Gran % (Auto) 0.4 Neut % (Auto) 59.3 Lymph % (Auto) 29.5 [place] % (Auto) 8.1 Eos % (Auto) 2.1 Baso % (Auto) 0.6 Lymph # (Auto) 2.0 [place] # (Auto) 0.6 Eos # (Auto) 0.1 Baso # (Auto) 0.0 Abs Immat Gran (auto) 0.03 Absolute Neuts (auto) 4.0 Absolute Nucleated RBC 0.000 Nucleated RBC % (auto) 0.0 PT 10.5 L INR 0.9 APTT 32.1 Anion Gap 15 Estim Creat Clear Calc 26.1 Estimated GFR 37 Random Glucose 129 H Lactic Acid 0.5 Calcium 9.6 Magnesium 2.5 Total Bilirubin 0.4 Direct Bilirubin 0.2 AST 21 ALT 15 Alkaline Phosphatase 89 Troponin I High Sens 19.9 H D 16.5 Total Protein 6.3 L Albumin 4.1 Urine Color Yellow Urine Appearance Turbid Urine pH 6.0 Ur Specific [place] 1.015 Urine Protein Trace Urine Glucose (UA) Negative Urine Ketones Negative Urine Blood Moderate (2+) H Urine Nitrite Negative Ur Leukocyte Esterase Large (3+) H Urine RBC 0-2 Urine WBC >50 H Ur Squamous Epith Cells 3-5 Urine Bacteria 4+ Hyaline Casts 3-5 Influenza Type A (PCR) NEGATIVE Influenza Type B (PCR) NEGATIVE RSV RNA Qual (PCR) NEGATIVE SARS-CoV-2 RNA (RT-PCR) NEGATIVE Microbiology Microbiology Results: Microbiology 02/28/24 19:29 Urine Culture - Preliminary Urine clean catch - Clean Catch Midstream Culture in progress. Assessment and Plan (1) Acute UTI: Status: Acute Plan 88F PMH hfpef with severe MR, LBBB, moderate persistent asthma, pierce on cpap, melanoma, gerd, hld, ckd 3 presented with syncope syncope orthostatic vs realted to severe MR, vs UTI monitor on tele, check orthostatics Acute UTI Continue ceftriaxone, follow-up cultures Chronic diastolic CHF with severe mitral regurgitation Maintenance Lasix CKD 3 Stable Moderate persistent asthma Stable continue albuterol as needed and inhaled steroid and long-acting beta-agonist DVT prophylaxis with Lovenox DNR/DNI reason for continued hospitalization: Awaiting cultures Quality Stroke Does the patient have a stroke diagnosis?: No VTE Prior VTE?: No VTE Risk Level:: Medical - moderate - high VTE Device Contraindication: Treatment Not Indicated VTE Drug Contraindication: N/A - Med Ordered
--- NOTE | 2024-02-29 12:18 | MHC.CM.PN ---
Addendum entered by Miya Rowe 02/29/24 12:32: CORRECTION! Patient is active with [facility]. Original Note: CM met with Patient at bedside in the ED and addressed YOU with her, providing Patient with the original and a copy has been placed on the chart. Patient lives in a house with her Daughter/HCP/Jayna Romero and she uses a cane to assist with mobility. Patient requested a referral for [facility]; CM has made referral.CM has initiated and will follow for dc planning. PCP is Dr. Sibley and Daughter will transport to home.
[2024-02-29] MEDS: Gabapentin 300 MG CAPSULE PO ×2 (12:57→19:20)
[2024-02-29] MEDS: 0.9 % Sodium Chloride Flush 3 ML SYRINGE IVFLUSH (15:19)
[2024-02-29] MEDS: lamoTRIgine 25 MG TABLET PO (19:20)
[2024-02-29] MEDS: Omeprazole 20 MG CAPSULE.DR PO (19:20)
[2024-02-29] MEDS: lamoTRIgine 100 MG TABLET PO (19:20)
[2024-03-01] VITALS (9 sets, daily range): BP systolic 115–176; BP diastolic 57–79; PULSE 53–90; RESP 12–21; TEMP 36.3–37.2; O2SAT 90–99; BMI 28.8
[2024-03-01] MEDS: 0.9 % Sodium Chloride Flush 3 ML SYRINGE IVFLUSH ×2 (00:22→08:59)
[2024-03-01 05:14] LABS: Hematocrit 31.4 % (37.0-47.0); Hemoglobin 10.3 g/dl (12.0-16.0); Mean Corpuscular HGB Conc 32.8 g/dl (31.0-35.0); Mean Corpuscular Hemoglobin 31.8 pg (27.0-33.0); Mean Corpuscular Volume 96.9 fL (80.0-98.0); Mean Platelet Volume 11.6 fL (9.4-12.3); Platelet Count 113 X10*3/uL (160-400); Red Blood Count 3.24 X10*6/uL (4.20-5.50); Red Cell Distribution Width 13.5 % (11.0-16.0)
[2024-03-01 05:29] LABS: Anion Gap 11 (12-20); Blood Urea Nitrogen 24 mg/dL (9-16); Calcium 9.6 mg/dL (8.4-10.2); Carbon Dioxide 25 mmol/L (22-29); Chloride 111 mmol/L (96-108); Creatinine Clr Calc Pharmacy 38.4; Estimated Glomerular Filt Rate 58; Glucose Random 105 mg/dL (60-115); Potassium 4.2 mmol/L (3.3-5.1); Sodium 143 mmol/L (135-145)
--- NOTE | 2024-03-01 08:11 | PC.NURSE ---
Resumed care of pt at 0700. Pt resting in bed quietly, a/ox3, speaking in full sentences, respirations even and unlabored, no increased wob/sob noted, lung sounds cta bilaterally, s1 and s2 heard, NSR on phototypesetting equipment monitor- HR 60s-70s. Pt updated on plan for room on [facility] [place]. Vitals signs updated, IV line assessed (patent, asymptomatic), abdomen soft, non-tender on palpation. Pt breakfast at bedside, pt c/o no pain, call pfeiffer within reach, all needs met at this time.
[2024-03-01] MEDS: lamoTRIgine 25 MG TABLET PO ×2 (08:52→18:47)
[2024-03-01] MEDS: Omeprazole 20 MG CAPSULE.DR PO ×2 (08:52→18:47)
[2024-03-01] MEDS: Gabapentin 300 MG CAPSULE PO ×3 (08:53→18:47)
[2024-03-01] MEDS: lamoTRIgine 100 MG TABLET PO ×2 (08:53→18:47)
[2024-03-01] MEDS: Atorvastatin Calcium 40 MG TABLET PO (08:53)
[2024-03-01] MEDS: Enoxaparin Sodium 30 MG/0.3 ML SYRINGE SUBCUT (08:54)
[2024-03-01] MEDS: Furosemide 40 MG TABLET PO (08:54)
[2024-03-01] MEDS: cefTRIAXone sodium 1 GM in 0.9 % Sodium Chloride 50 ML IV (08:56)
--- NOTE | 2024-03-01 09:52 | PC.NURSE ---
Pt medicated per MAR with morning meds. This RN gave pt 30mg subcut Lovenox at 0900 as ordered, MD Barnes ordered 40mg subcut Lovenox at 0945. Per MD Barnes, hold off on 40mg Lovenox, will continue going forward with 40mg.
--- NOTE | 2024-03-01 11:15 | HO.PM.IMPN ---
Subjective Subjective Date of Service: 03/01/24 Interval History: overall feeling better Physical Exam Vital Signs: Vital Signs: Last Vital Signs Temp 98.3 F 03/01/24 08:10 Pulse 60 03/01/24 08:10 Resp 12 03/01/24 08:10 BP 173/64 H 03/01/24 08:54 Pulse Ox 98 03/01/24 08:10 O2 Del Method Room Air 03/01/24 08:10 BMI result Body Mass Index 24.1 General: AO X 3, no acute distress Resp: CTA bilateral, no accessory muscles used CVS: S1,S2,RRR, murmur GI: soft, non tender, non distended Neuro: motor grossly intact, alert Psych: appropriate affect, appropriate insight Objective Data Active Medications Acetaminophen (Acetaminophen 325 Mg Tablet) 650 mg PO Q6H PRN PRN Reason: Pain, Mild (Pain Scale 1-3), fever or headache Albuterol Sulfate (Albuterol Sulfate 90 Mcg 8 Gm Inhaler) 2 puff INHALE RDAILY PRN PRN Reason: Shortness of Breath Atorvastatin Calcium (Atorvastatin Calcium 40 Mg Tablet) 40 mg PO DAILY [facility] Last Admin: 03/01/24 08:53 Dose: 40 mg Documented By: STACIE Calcium Carbonate (Calcium Carbonate 750 Mg Tab.Chew) 750 mg PO Q4H PRN PRN Reason: Heartburn Enoxaparin Sodium (Enoxaparin Sodium 40 Mg/0.4 Ml Syringe) 40 mg SUBCUT Q24H [facility] Last Admin: 03/01/24 09:52 Dose: Not Given Documented By: STACIE Non-Admin Reason: Physician Held Med Fluticasone/Vilanterol (Fluticasone/Vilanterol 100/25 Blst.W.Dev) 1 puff INHALE RDAILY [facility] Last Admin: 03/01/24 09:34 Dose: Not Given Documented By: OG Non-Admin Reason: Med Not Available Furosemide (Furosemide 40 Mg Tablet) 40 mg PO DAILY [facility]; Protocol Last Admin: 03/01/24 08:54 Dose: 40 mg Documented By: STACIE Gabapentin (Gabapentin 300 Mg Capsule) 300 mg PO TID@0900,1300,1800 [facility] Last Admin: 03/01/24 08:53 Dose: 300 mg Documented By: STACIE Ceftriaxone Sodium 1 gm/ (Sodium Chloride) 50 mls @ 100 mls/hr IV Q24H [facility] Last Infusion: 03/01/24 09:33 Dose: Infused Documented By: STACIE Lamotrigine (Lamotrigine 25 Mg Tablet) 25 mg PO BID@0900,1800 [facility] Last Admin: 03/01/24 08:52 Dose: 25 mg Documented By: STACIE Lamotrigine (Lamotrigine 100 Mg Tablet) 100 mg PO BID@0900,1800 [facility] Last Admin: 03/01/24 08:53 Dose: 100 mg Documented By: STACIE Magnesium Hydroxide (Milk Of Magnesia 30 Ml Oral.Susp) 30 ml PO DAILY PRN PRN Reason: Constipation Melatonin (Melatonin 3 Mg Tablet) 6 mg PO BEDTIME PRN PRN Reason: Insomnia Omeprazole (Omeprazole 20 Mg Capsule.Dr) 20 mg PO BID@0900,1800 [facility] Last Admin: 03/01/24 08:52 Dose: 20 mg Documented By: STACIE Ondansetron HCl (Ondansetron Hcl 4 Mg/2 Ml Vial) 4 mg IVPUSH Q8H PRN PRN Reason: Nausea and Vomiting Sodium Chloride (0.9 % Sodium Chloride Flush 3 Ml Syringe) 3 ml IVFLUSH QSHIFT [facility] Last Admin: 03/01/24 08:59 Dose: 3 ml Documented By: STACIE Labs 03/01/24 04:39 03/01/24 04:39 Labs: Laboratory Results - last 24 hr 03/01/24 04:39 MCV 96.9 MCH 31.8 MCHC 32.8 RDW 13.5 Plt Count 113 L MPV 11.6 Absolute Nucleated RBC 0.000 Nucleated RBC % (auto) 0.0 Anion Gap 11 L Estim Creat Clear Calc 38.4 Estimated GFR 58 Random Glucose 105 Calcium 9.6 Microbiology Microbiology Results: Microbiology 02/28/24 19:29 Urine Culture - Preliminary Urine clean catch - Clean Catch Midstream Gram negative melina 02/29/24 04:13 Blood Culture - Preliminary Blood - Venous No growth after 24 hours. 02/29/24 04:01 Blood Culture - Preliminary Blood - Venous No growth after 24 hours. Assessment and Plan (1) Acute UTI: Status: Acute Plan 88F PMH hfpef with severe MR, LBBB, moderate persistent asthma, pierce on cpap, melanoma, gerd, hld, ckd 3 presented with syncope syncope orthostatic vs realted to severe MR, vs UTI monitor on tele, Acute UTI Continue ceftriaxone, follow-up cultures - GNR Chronic diastolic CHF with severe mitral regurgitation Maintenance Lasix CKD 3 Stable Moderate persistent asthma Stable continue albuterol as needed and inhaled steroid and long-acting beta-agonist DVT prophylaxis with Lovenox DNR/DNI reason for continued hospitalization: Awaiting cultures Quality Stroke Does the patient have a stroke diagnosis?: No VTE Prior VTE?: No VTE Risk Level:: Medical - moderate - high VTE Device Contraindication: Treatment Not Indicated VTE Drug Contraindication: N/A - Med Ordered
--- NOTE | 2024-03-02 08:33 | P.DS_ITS ---
DS: Providers Provider Date of Service: 03/02/24 Date of admission: 02/29/24 06:16 Date of discharge: 03/02/24 Primary care physician: Janna Sibley MD DS: Diagnosis Discharge Diagnosis (1) Acute UTI: Status: Acute DS: Summary Hospital Course Hospital Course: from initial hpi: 88-year-old female with pertinent history of congestive heart failure with preserved ejection fraction, left bundle branch block, asthma not on home oxygen, fibromyalgia, SEBASTIAN on CPAP, history of melanoma, gastroesophageal reflux disease, overactive bladder, chronic unspecified polyneuropathy, mixed hyperlipidemia who presents to the emergency department for evaluation after a syncopal episode. Patient states while she was going from her bedroom to look for her phone outside her bedroom, she felt dizzy/lightheaded and passed out. She fell and hit her head. No chest pain or palpitations prior to the fall. No rhythmic jerking movement of extremities. Also endorses increased urinary frequency and change in odor of urine. No fever, chills, chest discomfort, palpitations, shortness of breath, abdominal pain, changes in bowel habits. In the emergency department, urine concerning for UTI. CT head without any acute abnormality. hospital course: Patient was admitted for syncope orthostatic hypotension versus related to severe mitral regurgitation versus urinary tract infection. Patient was treated for acute urinary tract infection with IV ceftriaxone and symptoms resolved. Patient feeling much stronger and back to baseline. Urine culture grew sensitive E coli and will be discharged on 3 more days of amoxicillin. Orthostatics were negative. For chronic diastolic CHF with severe mitral regurgitation she was continued on maintenance Lasix. For CKD 3 she remained stable. For moderate persistent asthma she continued inhaled steroid and long- acting beta agonist. Patient is feeling better will be discharged home. Time Attestation Discharge Coordination Time (in mins): 32 Quality: Safe Use of Opioids Does Pt have an Active Cancer Diagnosis on the Problem List?: No Quality: Stroke Does the patient have a stroke diagnosis?: No Physical Exam Vital Signs: Vital Signs: Last Vital Signs Temp 97.4 F 03/01/24 23:05 Pulse 67 03/01/24 23:05 Resp 21 H 03/01/24 23:05 BP 115/62 03/01/24 23:05 Pulse Ox 90 L 03/01/24 23:05 O2 Del Method Room Air 03/01/24 23:05 BMI result Body Mass Index 28.8 General: AO X 3, no acute distress Resp: CTA bilateral, no accessory muscles used CVS: S1,S2,RRR, murmur GI: soft, non tender, non distended Neuro: motor grossly intact, alert Psych: appropriate affect, appropriate insight DS: Data Data Completed and Pending Completed studies during hospitalization [Text1]: Procedures Assistance with Respiratory Ventilation, Less than 24 Consecutive Hours, Continuous Positive Airway Pressure (12/27/23) Transfusion of Nonautologous Red Blood Cells into Peripheral Vein, Percutaneous Approach (12/27/23) Labs on day of discharge: Preliminary micro results at discharge 02/28/24 19:29 Urine Culture - Preliminary Urine clean catch - Clean Catch Midstream Escherichia coli 02/29/24 04:13 Blood Culture - Preliminary Blood - Venous No growth after 48 hours. 02/29/24 04:01 Blood Culture - Preliminary Blood - Venous No growth after 48 hours. Discharge Plan Discharge Anticipated Discharge Date/Time: 03/02/24 08:31 Patient Disposition: Home, Self-Care Discharge Diagnosis: uti Referrals: Janna Sibley MD [Primary Care Provider] - 1 Week Discharge Medications: New amoxicillin 875 mg tablet 875 mg PO BID Qty: 6 0RF Continued lamotrigine 25 mg tablet 25 mg PO BID@0900,1800 gabapentin 300 mg capsule 300 mg PO TID@0900,1300,1800 omeprazole 20 mg capsule,delayed release(DR/EC) 20 mg PO BID@0900,1800 albuterol sulfate 90 mcg/actuation HFA aerosol inhaler 2 inh inhalation DAILY PRN (Reason: SOB) lamotrigine 100 mg tablet 100 mg PO BID@0900,1800 Gemtesa 75 mg tablet 75 mg PO DAILY PreserVision AREDS-2 250-90-40-1 mg Capsule 1 tab PO BID@0900,1800 calcium carbonate-vitamin D3 [Calcium 600 + D(3)] 600 mg-5 mcg (200 unit) Tablet 1 tab PO BID@0900,1800 atorvastatin 40 mg tablet 40 mg PO DAILY fluticasone propion-salmeterol 250-50 mcg/dose Blister With Device 2 inh INHALATION BID d-mannose 500 mg Capsule 500 mg PO DAILY furosemide 20 mg tablet 40 mg PO DAILY Probiotic magnesium citrate Discharge Orders: Discharge Order (Routine); Ordered 03/02/24 Ordered By: Kingsley Barnes Diet: Advance to usual diet Activity on Discharge: As tolerated Stand Alone Forms: Patient Portal Discharge page Print Language: Portuguese Care Plan Goals: recovery Health Concerns: uti Plan of Treatment: 3 more days of amoxicillin Assessment: see above
[2024-03-02] MEDS: Omeprazole 20 MG CAPSULE.DR PO (08:39)
[2024-03-02] MEDS: lamoTRIgine 25 MG TABLET PO (08:39)
[2024-03-02] MEDS: Gabapentin 300 MG CAPSULE PO (08:39)
[2024-03-02] MEDS: Atorvastatin Calcium 40 MG TABLET PO (08:39)
[2024-03-02] MEDS: lamoTRIgine 100 MG TABLET PO (08:39)
[2024-03-02 08:41] VITALS: BP 125/68
[2024-03-02] MEDS: Furosemide 40 MG TABLET PO (08:41)
--- NOTE | 2024-03-02 08:47 | MHC.CM.PN ---
Patient has been medically cleared for dc to home today, with services. Patient is active with [facility], who has been informed of today's dc.
== END 2024-03-02 10:07 | disposition home health service (06) ==
LOC: HO.ED 02-29 02:47 → HO.EDOVER 02-29 06:19 → HO.IMC 03-01 16:30
PROVIDERS: Physician Assistant Medical; Admitting Provider Student in an Organized Health Care Education/Training Program; Emergency Provider Internal Medicine; PCP Internal Medicine; Visit Provider Internal Medicine
DX: N39.0 Urinary tract infection, site not specified (principal); I95.1 Orthostatic hypotension; I44.7 Left bundle-branch block, unspecified; J45.909 Unspecified asthma, uncomplicated; K21.9 Gastro-esophageal reflux disease without esophagitis; E78.2 Mixed hyperlipidemia; I13.0 Hypertensive heart and chronic kidney disease with heart failure and stage 1 through stage 4 chronic kidney disease, or unspecified chronic kidney disease; N18.30 Chronic kidney disease, stage 3 unspecified; I50.30 Unspecified diastolic (congestive) heart failure; J45.40 Moderate persistent asthma, uncomplicated; I34.0 Nonrheumatic mitral (valve) insufficiency; Z03.818 Encounter for observation for suspected exposure to other biological agents ruled out; Z79.899 Other long term (current) drug therapy
CPT/HCPCS: 0241U; 36415; 70450; 72125; 80048; 80076; 81001; 83605; 83735; 84484; 85025; 85027; 85610; 85730; 87040; 87086; 87088; 87186; 93005; 96361; 96365; 96366; 96372; 99222; 99285; J0696; J1650

== ENCOUNTER → 2024-02-29 06:16 | Outpatient (BNV) | payer MEDICARE, OTHER, SELFPAY | PROVIDERS: Admitting Provider Student in an Organized Health Care Education/Training Program; Emergency Provider Internal Medicine; PCP Internal Medicine; Visit Provider Student in an Organized Health Care Education/Training Program | DX: N39.0 Urinary tract infection, site not specified (principal); I95.1 Orthostatic hypotension | CPT/HCPCS: 99223; 99232; 99239; 99499 ==

== ENCOUNTER 2024-03-03 09:21 | Inpatient (IN) | payer MEDICARE, OTHER, SELFPAY ==
[2024-03-03] VITALS (38 sets, daily range): BP systolic 60–153; BP diastolic 27–71; PULSE 57–114; RESP 12–19; TEMP 36.8–37.9; O2SAT 95–100; BMI 26.8
--- NOTE | ~2024-03-03 | CT_ITS ---
EXAMINATION: CT ABDOMEN AND PELVIS WITHOUT CONTRAST CLINICAL INFORMATION: Recent urinary tract infection, acute renal failure, flank pain COMPARISON: None available. TECHNIQUE: Multidetector volumetric imaging was performed from the superior aspect of the liver through the pubic symphysis. Sagittal and coronal reformatted images were obtained on the technologist's workstation. This CT examination was performed using dose optimization techniques as appropriate, variously including the following: *Automated exposure control *Adjustment of mA and/or kV according to patient size (this includes techniques or standardized protocols for targeted exams where dose is matched to indication/reason for exam; i.e. extremities or head) *Use of iterative reconstruction technique DLP: 1223 mGy-cm FINDINGS: CT ABDOMEN LUNG BASES: Bilateral lung bases are clear. LIVER: Liver appears to be grossly normal on noncontrast enhanced images. Metallic surgical kina are seen along the medial border of right hepatic lobe segment 6. GALLBLADDER AND BILIARY TREE: Gallbladder is surgically absent with clips in the gallbladder fossa. Common bile duct is not dilated. SPLEEN: The spleen is normal in size without focal lesion on noncontrast enhanced images. PANCREAS: The pancreas appears unremarkable on noncontrast enhanced images. ADRENAL GLANDS: Adrenal glands are normal in size without focal lesion bilaterally. KIDNEYS: The visualized bilateral kidneys are normal in size bilateral multiple renal calculi and right lateral mid renal cortical simple cyst measuring 1 cm in diameter, mean attenuation of 2 Hounsfield units for which no follow-up imaging is recommended. 2. Punctate calculi are seen in upper and mid right kidney. Large left posterior mid renal calculus measures 1.9 x 1.5 cm in size. Adjacent posterior mid renal calculus measures 0.4 cm in AP diameter, 1.1 cm in width. There is prominent left perinephric soft tissue stranding.. No caliectasis or dilated pelvis is seen. No dilated ureters are found. BOWELS: There is no abnormal dilatation of the large and small bowel loops. Probable hyaline appendix is seen posteriorly superior to the cecum. RETROPERITONEUM: No abnormally enlarged retroperitoneal lymph nodes, mass or hematoma could be seen. BLOOD VESSELS: Abdominal aorta is normal in size with extensive atherosclerotic calcifications. ABDOMINAL WALL: Small umbilical hernia containing mesenteric fat is seen. PERITONEUM: There is no ascites. There were no abdominal peritoneal inflammatory changes seen. No free peritoneal air was seen. BONES: There is grade 1 L3-L4 anterolisthesis. Advanced L3-L4 and L4-L5 degenerative disc disease with vacuum disc phenomenon is seen. Mild posterior L5-S1 disc protrusion is also seen. No fracture or dislocation. No focal bone lesion diagnostic of metastatic disease could be seen in the lumbar region. CT PELVIS URINARY BLADDER: The visualized urinary bladder is normal, filled with urine. No intraluminal stones are found. No abnormally dilated distal ureters are seen. BOWELS: There is no abnormal dilatation of the large and small bowel loops. Diverticula are seen in the distal sigmoid colon without inflammatory changes. GENITAL ORGANS: No adnexal mass lesion could be seen. The uterus is unremarkable. LYMPH NODES: No abnormally enlarged iliac or inguinal lymph nodes are seen. PERITONEUM: No inflammatory changes, ascites or free peritoneal air are found in the pelvis. BONES: No fracture or dislocation. No focal bone lesion diagnostic of metastatic disease could be seen in the pelvis. CT/CT abdomen pelvis wo IV con IMPRESSION: 1. Bilateral multiple renal calculi, much larger in the left kidney. 2. No evidence of hydronephrosis. 3. Prominent left perinephric soft tissue stranding, could be concerning for pyelonephritis. 4. Sigmoid diverticulosis without evidence of diverticulitis. 5. Status post cholecystectomy. Fleischner guidelines were followed. Electronically signed by: Urbano Faustin MD 03/03/2024 12:44 PM EDT
--- NOTE | ~2024-03-03 | XR_ITS ---
EXAMINATION: XR CHEST CLINICAL INFORMATION: Weakness. COMPARISON: CTA chest dated 12/27/2023. TECHNIQUE: Frontal view of the chest was obtained. FINDINGS: Resolution of the previously seen bilateral pleural effusions. Minimal perihilar opacities, significantly decreased. No pneumothorax. Stable cardiomediastinal silhouette. XR/XR chest 1V IMPRESSION: Resolution of the previously seen bilateral pleural effusions. Minimal perihilar opacities, significantly decreased. Electronically signed by: Waylon Schmidt MD 03/03/2024 11:30 AM EDT
--- NOTE | ~2024-03-03 | CT_ITS ---
EXAMINATION: CT HEAD WITHOUT CONTRAST CLINICAL INFORMATION: Altered mental status COMPARISON: CT scan of brain on 02/28/2024 TECHNIQUE: Contiguous axial imaging was performed from the skull base to vertex without intravenous administration of contrast. This CT examination was performed using dose optimization techniques as appropriate, variously including the following: *Automated exposure control *Adjustment of mA and/or kV according to patient size (this includes techniques or standardized protocols for targeted exams where dose is matched to indication/reason for exam; i.e. extremities or head) *Use of iterative reconstruction technique DLP: 614.44 mGy-cm FINDINGS: Ventricles, sulci and cisterns are dilated. Extensive encephalomalacia is seen in left lateral frontal lobe, left anterior insular cortex. Bilateral frontal and left parietal periventricular white matters show decrease in attenuation. Lacunar infarcts are seen in bilateral thalami. Chronic bandlike infarct is seen in the bilateral external capsules. There is no midline shift, no abnormal intra- or extra- axial fluid accumulation. Cherry and white matter differentiation is normal. Bone window images show no evidence of skull fracture. CT/CT head/brain wo IV con IMPRESSION: 1. 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 2. 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 3. Unchanged bilateral thalamic lacunar infarcts, chronic bilateral external capsule infarcts. 4. No intracranial hemorrhage or skull fracture is seen. 5. No evidence of space occupying lesion could be found. 6. The current plain CT scan of the brain shows no diagnostic evidence of acute cerebral infarction. Electronically signed by: Urbano Faustin MD 03/03/2024 01:00 PM EDT
--- NOTE | 2024-03-03 09:30 | ECG_ITS ---
Test Reason : WEAKNESS Blood Pressure : / mmHG Vent. Rate : 085 BPM Atrial Rate : 085 BPM P-R Int : 178 ms QRS Dur : 146 ms QT Int : 398 ms P-R-T Axes : 043 -16 199 degrees QTc Int : 473 ms Normal sinus rhythm Left bundle branch block Abnormal ECG When compared with ECG of 28-FEB-2024 18:48, T wave inversion now evident in Inferior leads Referred By: Suzie Castillo Electronically Signed By:ERENDIRA ARORA
[2024-03-03 09:45] LABS: MANUAL DIFF FLAG NO
[2024-03-03 09:49] LABS: VBG Base Excess 1.9 mmol/L; VBG HCO3 26 mmol/L (22-26); VBG pCO2 38 mmHg; VBG pH 7.43 (7.32-7.43); VBG pO2 38 mmHg
[2024-03-03 09:51] LABS: Venous Blood Gas Refer to POC result
[2024-03-03 09:52] LABS: Basophils Absolute Auto 0.1 X10*3/uL (0.0-0.2); Basophils Percent Auto 0.4 % (0-2); Eosinophils Absolute Auto 0.1 X10*3/uL (0.0-0.4); Eosinophils Percent Auto 0.7 % (0-4); Hematocrit 32.8 % (37.0-47.0); Hemoglobin 10.9 g/dl (12.0-16.0); Imm Gran Abs Auto 0.11 X10*3/uL (0.00-0.03); Imm Gran Pct Auto 0.8 % (0.0-0.4); Lymphocytes Absolute Auto 0.6 X10*3/uL (1.2-4.9); Lymphocytes Percent Auto 4.2 % (20-40); Mean Corpuscular HGB Conc 33.2 g/dl (31.0-35.0); Mean Corpuscular Hemoglobin 32.2 pg (27.0-33.0); Mean Corpuscular Volume 96.8 fL (80.0-98.0); Mean Platelet Volume 11.5 fL (9.4-12.3); Monocytes Absolute Auto 0.9 X10*3/uL (0.1-1.2); Monocytes Percent Auto 6.3 % (2-11); Neutrophils Absolute Auto 12.8 x10*3/uL (2.0-8.3); Neutrophils Percent Auto 87.6 % (45-73); Platelet Count 115 X10*3/uL (160-400); Red Blood Count 3.39 X10*6/uL (4.20-5.50); Red Cell Distribution Width 14.3 % (11.0-16.0); White Blood Count 14.7 X10*3/uL (4.8-10.8)
--- NOTE | 2024-03-03 09:53 | ED_ITS ---
HPI - Altered Mental Status General Chief Complaint: Altered Mental Status Stated Complaint: Dx UTI, AMS, possible sepsis Source: patient and EMS Mode of arrival: EMS Limitations: altered mental status History of Present Illness ED Provider: CARMELITA HPI narrative: 88 yo female CHF EF 55-60%, LBBB, asthma, SEBASTIAN on CPAP, melanoma, GERD, HLD, polyneuropathy, overactive bladder, melanoma, just admitted here for syncope 02/28-03/02 found to have + UTI E. Coli and enterococcus grew out ledesma S initially given IV ceftriaxone and then discharged home on amoxicilin. She lives alone and her daughter from [place] called today and noted the mom sounded off and and neighbor went over to check and found the patient altered. Patient states she might have taken her antibiotics. EMS found patient altered, hot to touch, BP 60/40s given 500NS. On arrival BP normal here. BS 130s with EMS MD complaint: altered mental status, confusion, decreased responsiveness and weakness Onset (ago): unknown Timing confirmed by: family member Severity: severe Consistency of symptoms: unknown Context: other (recent admission for syncope and UTI) Associated symptoms: loss of appetite, malaise, weakness and difficulty walking Treatments prior to arrival: IV fluid Related Data Home Medications ?Medication ?Instructions ?Recorded ?Confirmed albuterol sulfate 90 mcg/actuation 2 inh inhalation DAILY PRN SOB 12/27/23 02/29/24 aerosol inhaler calcium carbonate 600 mg-vitamin 1 tab PO BID@0900,179912/27/23 02/29/24 D3 5 mcg (200 unit) tablet (Calcium 600 + D(3)) gabapentin 300 mg capsule 300 mg PO TID@0900,1300,179912/27/23 02/29/24 lamotrigine 100 mg tablet 100 mg PO BID@0900,179912/27/23 02/29/24 lamotrigine 25 mg tablet 25 mg PO BID@0900,1800 12/27/23 02/29/24 omeprazole 20 mg capsule,delayed 20 mg PO BID@0900,179912/27/23 02/29/24 release vibegron 75 mg tablet (Gemtesa) 75 mg PO DAILY 12/27/23 02/29/24 vit C 250 mg-vit E 90 mg-zinc 40 1 tab PO BID@0900,1800 07/08/24 09/10/24 mg-copper 1 [id number] capsule (PreserVision AREDS-2) Probiotic 02/29/24 atorvastatin 40 mg tablet 40 mg PO DAILY 02/29/24 02/29/24 d-mannose 500 mg capsule 500 mg PO DAILY 02/29/24 02/29/24 fluticasone 250 mcg-salmeterol 50 2 inh inhalation BID 02/29/24 02/29/24 mcg/dose blistr powdr for inhalation furosemide 20 mg tablet 40 mg PO DAILY swelling 02/29/24 02/29/24 magnesium citrate 02/29/24 Previous Rx's ?Medication ?Instructions ?Recorded amoxicillin 875 mg tablet 875 mg PO BID #6 tabs 03/02/24 Allergies Allergy/AdvReac Type Severity Reaction Status Date / Time hydroxyzine Allergy Hives Verified 03/03/24 09:34 imipramine Allergy Hives Verified 03/03/24 09:34 Review of Systems 2 Review of Systems: ROS unable to be obtained due to altered mental status PMFSH Past Medical History Attestation statement: The following information was validated with the patient. Source: old records reviewed Medical History Hyperlipidemia Hypertension Left bundle branch block Urge incontinence SEBASTIAN on CPAP Fibromyalgia Chronic polyneuropathy History of melanoma Asthma Diastolic dysfunction Social History Social History Household Members: Children Housing: House Do you presently have visiting nurse or other home services: No Unable to assess alcohol history related to: Unable to respond and Unknown Alcohol intake: former Patient Tobacco Use Status: Never used Tobacco Smoked in Last 30 Days: No Use of substances other than those prescribed or required for medical reasons: No Advance Directives: Yes Advance Directives Information Provided: Yes Advance Directives on File: No Advance Directives Date on File: 12/27/23 Do you have a plan to hurt others: No Plan service: No Physical Exam ED Vital Signs: Vital Signs - 24 hr 03/03/24 09:32 03/03/24 09:35 03/03/24 11:08 Temperature 100.3 F Pulse Rate 93 91 87 Respiratory Rate 18 16 18 Blood Pressure 98/60 93/48 L 78/40 L Pulse Oximetry 95 Oxygen Delivery Method Room Air 03/03/24 11:08 03/03/24 11:14 03/03/24 11:25 Temperature Pulse Rate 87 90 85 Respiratory Rate 18 18 18 Blood Pressure 85/27 L 74/37 L 73/43 L Pulse Oximetry 97 96 98 Oxygen Delivery Method Room Air Room Air Room Air 03/03/24 11:32 03/03/24 11:35 03/03/24 11:39 Temperature Pulse Rate 76 76 75 Respiratory Rate 18 18 Blood Pressure 60/36 L 92/60 103/58 L Pulse Oximetry 99 97 Oxygen Delivery Method Room Air Room Air 03/03/24 11:40 03/03/24 11:44 03/03/24 11:48 Temperature 98.2 F 99.0 F Pulse Rate 89 77 79 Respiratory Rate 15 18 Blood Pressure 90/69 97/51 L 108/62 Pulse Oximetry 96 97 Oxygen Delivery Method Room Air Room Air BMI result Body Mass Index 26.8 Appearance: Somnolent but woken to her name and voice Oriented X to person and place. Mild acute distress. Eyes: Pupils equal, round and reactive to light. ENT: Pharynx dry MM, atraumatic Neck: Normal inspection. Neck supple. CVS: Normal heart rate and rhythm. Pulses normal. Respiratory: No respiratory distress. Breath sounds normal. Abdomen: Soft and non-tender. no grimace Skin: Skin warm and dry. pale skin color. Extremities: No lower extremity edema. Neuro: Oriented X 3. No motor deficit. No sensory deficit. moves all extremities Course Course Course Narrative: discussed with daughter - patient is DNR/DNI okay for central line she is aware of prognosis and severity of illness IVF infusing if no response will place line and start pressors Reevaluation(s) Reevaluation #1: patient improving with phenylephrine at this time pending ECHO and CT scan reads I did let Dr. Sparks know about patient's status 1153am Reevaluation #2: focused exam for sepsis performed at 1pm 03/03/24 Medications Administered Generic Name Dose Route Start Last Admin Trade Name Freq PRN Reason Stop Dose Admin Phenylephrine HCl 20 mg/ 252 mls @ 0 mls/hr 03/03/24 11:30 03/03/24 11:32 Sodium Chloride IVCONT 0.5 mcg/kg/min .Q0M SAMIA 27.63 mls/hr Administration Protocol Per Protocol Discontinued Medications Generic Name Dose Route Start Last Admin Trade Name Freq PRN Reason Stop Dose Admin Acetaminophen 650 mg 03/03/24 09:32 03/03/24 10:07 Acetaminophen Oral Liquid 650 Mg/20.3 Ml Solution PO 03/03/24 09:33 650 mg ONCE ONE Administration Piperacillin Sod/Tazobactam 100 mls @ 200 mls/hr 03/03/24 09:32 03/03/24 12:31 Sod 4.5 gm/ Sodium Chloride IV 03/03/24 10:01 Infused ONCE ONE Infusion Lactated Ringer's 2,193 mls @ 2,193 mls/hr 03/03/24 09:35 03/03/24 12:31 Lr 30 ml/kg infuse over 1 hr (2193 ml) 03/03/24 10:34 Infused IV Infusion .Q1H ONE Medical Decision Making Medical Decision Making [facility] Narrative: 88 yo female CHF EF 55-60%, LBBB, asthma, SEBASTIAN on CPAP, melanoma, GERD, HLD, polyneuropathy, overactive bladder, melanoma, just admitted here for syncope 02/28-03/02 found to have + UTI E. Coli and enterococcus here with c/o AMS, weakness, not feeling well found to be hypotensive and altered by EMS - on arrival BP is normal but she will received 30cc/kg bolus, IV zosyn based off urine culture given E. Coli and enterococcus. CT head for ICH, CT scan of abdomen pelvis she c/o back pain unsure if she has stone or pyelo, tylenol for fever. Will monitor closely. Fluids could be issue with her she does have hx of CHF. Planned admit. Differential Diagnosis Differential Diagnoses: The differential diagnosis associated with the presentation includes acute uti, pneumonia, viral syndrome, dehydration, ICH Admission/Observation Consideration of admission/observation: Escalation of care including admission/observation considered admit to inpatient given status and ongoing need for care Consult Healthcare Provider Management of the patient was discussed with: [employer] Manager message sent to Dr. Street 1051am given troponin patient has not reported chest pain cannot get CTA given BEL Dr. Street recommends give boluses he knows the patient very well - would hold off procedures, start on phenylephrine drip. Boluses are started ordered gtt now 1119am am avoid anything that increases contractility and stick with phenylephrine and vasopressin. start heparin hold aspirin at this time she is less awake, no chest pain Lab Data [facility] Lab Attestation statement: I reviewed the patient's lab results. 03/03/24 09:40 03/03/24 09:40 Labs: Lab Results 03/03/24 03/03/24 03/03/24 Range/Units 09:40 09:42 09:46 WBC 14.7 H (4.8-10.8) X10*3/uL RBC 3.39 L (4.20-5.50) X10*6/uL Hgb 10.9 L (12.0-16.0) g/dl Hct 32.8 L (37.0-47.0) % MCV 96.8 (80.0-98.0) fL MCH 32.2 (27.0-33.0) pg MCHC 33.2 (31.0-35.0) g/dl RDW 14.3 (11.0-16.0) % Plt Count 115 L (160-400) X10*3/uL MPV 11.5 (9.4-12.3) fL Immature Gran % (Auto) 0.8 H (0.0-0.4) % Neut % (Auto) 87.6 H (45-73) % Lymph % (Auto) 4.2 L (20-40) % [place] % (Auto) 6.3 (2-11) % Eos % (Auto) 0.7 (0-4) % Baso % (Auto) 0.4 (0-2) % Lymph # (Auto) 0.6 L (1.2-4.9) X10*3/uL [place] # (Auto) 0.9 (0.1-1.2) X10*3/uL Eos # (Auto) 0.1 (0.0-0.4) X10*3/uL Baso # (Auto) 0.1 (0.0-0.2) X10*3/uL Abs Immat Gran (auto) 0.11 H (0.00-0.03) X10*3/uL Absolute Neuts (auto) 12.8 H (2.0-8.3) x10*3/uL Absolute Nucleated RBC 0.000 (0.0-0.012) X10*3/uL Nucleated RBC % (auto) 0.0 (0.0-0.2) /100WBC VBG pH 7.43 (7.32-7.43) VBG pCO2 38 mmHg VBG pO2 38 mmHg VBG HCO3 26 (22-26) mmol/L VBG O2 Saturation 62.0 % VBG Base Excess 1.9 mmol/L Sodium 143 (135-145) mmol/L Potassium 4.1 (3.3-5.1) mmol/L Chloride 107 (96-108) mmol/L Carbon Dioxide 25 (22-29) mmol/L Anion Gap 15 (12-20) BUN 44 H (9-16) mg/dL Creatinine 2.45 H (0.5-1.4) mg/dL Estim Creat Clear Calc 15.9 Estimated GFR 19 POC Glucose (60-115) mg/dL Random Glucose 137 H (60-115) mg/dL Lactic Acid 3.2 H* (0.5-2.0) mmol/L Calcium 9.3 (8.4-10.2) mg/dL Magnesium 2.2 (1.6-2.6) mg/dL Total Bilirubin 0.7 (0.0-1.0) mg/dL Direct Bilirubin 0.3 (0.0-0.5) mg/dL AST 150 H (5-31) U/L ALT 28 (0-31) U/L Alkaline Phosphatase 69 (39-117) U/L Total Creatine Kinase 2054 H (26-140) U/L Troponin I High Sens > 49648.0 H* D (<3.5-17.0) ng/L C-Reactive Protein 8.10 H (< or = 0.50) mg/dL B-Natriuretic Peptide 2763 H (<100) pg/mL Total Protein 6.0 L (6.5-8.0) g/dL Albumin 3.7 (3.5-5.0) g/dL Lipase 27 (8-78) U/L Procalcitonin 10.14 ng/mL Urine Color Urine Appearance Urine pH (5.0-9.0) Ur Specific [place] (1.005-1.025) Urine Protein (Neg-Trace) mg/dL Urine Glucose (UA) (Negative) mg/dL Urine Ketones (Negative) mg/dL Urine Blood (Negative) Urine Nitrite (Negative) Ur Leukocyte Esterase (Negative) Urine RBC (0-2) /HPF Urine WBC (0-5) /HPF Ur Squamous Epith Cells (0-2) /HPF Urine Bacteria (None Seen) Hyaline Casts (0-2) /LPF Influenza Type A (PCR) NEGATIVE (Negative) Influenza Type B (PCR) NEGATIVE (Negative) RSV RNA Qual (PCR) NEGATIVE (Negative) SARS-CoV-2 RNA (RT-PCR) NEGATIVE (Negative) 03/03/24 03/03/24 Range/Units 09:53 10:35 WBC (4.8-10.8) X10*3/uL RBC (4.20-5.50) X10*6/uL Hgb (12.0-16.0) g/dl Hct (37.0-47.0) % MCV (80.0-98.0) fL MCH (27.0-33.0) pg MCHC (31.0-35.0) g/dl RDW (11.0-16.0) % Plt Count (160-400) X10*3/uL MPV (9.4-12.3) fL Immature Gran % (Auto) (0.0-0.4) % Neut % (Auto) (45-73) % Lymph % (Auto) (20-40) % [place] % (Auto) (2-11) % Eos % (Auto) (0-4) % Baso % (Auto) (0-2) % Lymph # (Auto) (1.2-4.9) X10*3/uL [place] # (Auto) (0.1-1.2) X10*3/uL Eos # (Auto) (0.0-0.4) X10*3/uL Baso # (Auto) (0.0-0.2) X10*3/uL Abs Immat Gran (auto) (0.00-0.03) X10*3/uL Absolute Neuts (auto) (2.0-8.3) x10*3/uL Absolute Nucleated RBC (0.0-0.012) X10*3/uL Nucleated RBC % (auto) (0.0-0.2) /100WBC VBG pH (7.32-7.43) VBG pCO2 mmHg VBG pO2 mmHg VBG HCO3 (22-26) mmol/L VBG O2 Saturation % VBG Base Excess mmol/L Sodium (135-145) mmol/L Potassium (3.3-5.1) mmol/L Chloride (96-108) mmol/L Carbon Dioxide (22-29) mmol/L Anion Gap (12-20) BUN (9-16) mg/dL Creatinine (0.5-1.4) mg/dL Estim Creat Clear Calc Estimated GFR POC Glucose 123 H (60-115) mg/dL Random Glucose (60-115) mg/dL Lactic Acid (0.5-2.0) mmol/L Calcium (8.4-10.2) mg/dL Magnesium (1.6-2.6) mg/dL Total Bilirubin (0.0-1.0) mg/dL Direct Bilirubin (0.0-0.5) mg/dL AST (5-31) U/L ALT (0-31) U/L Alkaline Phosphatase (39-117) U/L Total Creatine Kinase (26-140) U/L Troponin I High Sens (<3.5-17.0) ng/L C-Reactive Protein (< or = 0.50) mg/dL B-Natriuretic Peptide (<100) pg/mL Total Protein (6.5-8.0) g/dL Albumin (3.5-5.0) g/dL Lipase (8-78) U/L Procalcitonin ng/mL Urine Color Dark Yellow Urine Appearance Clear Urine pH 5.5 (5.0-9.0) Ur Specific [place] 1.015 (1.005-1.025) Urine Protein 30 (1+) H (Neg-Trace) mg/dL Urine Glucose (UA) Negative (Negative) mg/dL Urine Ketones Negative (Negative) mg/dL Urine Blood Negative (Negative) Urine Nitrite Negative (Negative) Ur Leukocyte Esterase Moderate (2+) H (Negative) Urine RBC 0-2 (0-2) /HPF Urine WBC 6-10 H (0-5) /HPF Ur Squamous Epith Cells 0-2 (0-2) /HPF Urine Bacteria None Seen (None Seen) Hyaline Casts 0-2 (0-2) /LPF Influenza Type A (PCR) (Negative) Influenza Type B (PCR) (Negative) RSV RNA Qual (PCR) (Negative) SARS-CoV-2 RNA (RT-PCR) (Negative) Independent Interpretation I performed an independent interpretation of an: EKG, Plain X-Ray and CT Scan Interpretation: Rate: 85 Rhythm: NSR Beecher: left, LVH Normal P waves. Normal AMOS. LBBB ST T wave : ST depressions V5-V6, no CONOR, inverted t waves I and aVL qTC: 473 prior studies: no change from prior The study has been interpreted contemporaneously by me. . Radiology Impression Discussion of test interpretation with radiology: I have reviewed the radiologist's reading. Independent Historian Clinical information obtained from an independent historian. History obtained from or confirmed by: Friend, EMS and Other (daughter and close neighbor) External Record Review External record reviewed: Inpatient record Critical Care Time Critical Care Time Critical Care Time: Yes Total Critical Care Time: 60 Attestation: review of records, 2L of IVF, medical consult, discussion with family, peripheral pressors, admission I attest to this time spent taking care of the patient Discharge Plan Discharge Clinical Impression: BEL (acute kidney injury), Acute UTI, Non-ST elevation [place] (NSTEMI), Sepsis, Acute pyelonephritis
[2024-03-03 09:56] LABS: Glucose, Whole Blood 123 mg/dL (60-115)
[2024-03-03 10:01] LABS: Lactic Acid 3.2 mmol/L (0.5-2.0)
[2024-03-03 10:06] LABS: B Type Natriuretic Peptide 2763 pg/mL (<100)
[2024-03-03] MEDS: Acetaminophen Oral Liquid 650 MG/20.3 ML SOLUTION PO (10:07)
--- NOTE | 2024-03-03 10:07 | PC.NURSE ---
Patient difficult to obtain blood work on. Multipe techs/RN attempting to draw
[2024-03-03 10:08] LABS: Alanine Aminotransferase 28 U/L (0-31); Albumin Level 3.7 g/dL (3.5-5.0); Alkaline Phosphatase 69 U/L (39-117); Anion Gap 15 (12-20); Aspartate Amino Transferase 150 U/L (5-31); Bilirubin Direct 0.3 mg/dL (0.0-0.5); Bilirubin Total 0.7 mg/dL (0.0-1.0); Blood Urea Nitrogen 44 mg/dL (9-16); Calcium 9.3 mg/dL (8.4-10.2); Carbon Dioxide 25 mmol/L (22-29); Chloride 107 mmol/L (96-108); Creatinine Clr Calc Pharmacy 15.9; Estimated Glomerular Filt Rate 19; Glucose Random 137 mg/dL (60-115); Lipase 27 U/L (8-78); Magnesium 2.2 mg/dL (1.6-2.6); Potassium 4.1 mmol/L (3.3-5.1); Sodium 143 mmol/L (135-145)
[2024-03-03] MEDS: Piperacillin Sodium/Tazobactam 4.5 GM in 0.9 % Sodium Chloride 100 ML IV (10:09)
--- NOTE | 2024-03-03 10:09 | PC.NURSE ---
Provider aware patient difficult stick, blood cultures obtained, abt hung
[2024-03-03 10:22] LABS: Procalcitonin 10.14 ng/mL
[2024-03-03 10:27] LABS: Influenza A PCR NEGATIVE (Negative); Influenza B PCR NEGATIVE (Negative); Resp Syncy Virus RNA Qual PCR NEGATIVE (Negative); SARS COV2 PCR INHOUSE NEGATIVE (Negative)
[2024-03-03 10:41] LABS: Troponin-I High Sensitivity > 60000.0 ng/L (<3.5-17.0)
[2024-03-03 10:43] LABS: Appearance Urine Clear; Color Urine Dark Yellow; Glucose Urine UA Negative (Negative); Leukocyte Esterase Urine Moderate (2+) (Negative); Nitrite Urine Negative (Negative); PH 5.5 (5.0-9.0); Specific Gravity - Urine 1.015 (1.005-1.025); UMIC TRIGGER UACC YES; Urine Blood Negative (Negative); Urine Ketones Negative (Negative); Urine Protein 30 (1+) mg/dL (Neg-Trace)
[2024-03-03 10:53] LABS: Bacteria Urine None Seen (None Seen); Hyaline Casts Urine 0-2 /LPF (0-2); RBC Urine 0-2 /HPF (0-2); Squamous Epithelial Cell Urine 0-2 /HPF (0-2); UACC Culture Trigger YES
--- NOTE | 2024-03-03 11:00 | CA_ITS ---
Transthoracic Echocardiogram Patient (Last, First, Middle): Elvia Winkler S Gender: Female Date of : 1935 Age: 88 Procedure Date: 03/03/2024 Procedure Type: Transthoracic Echocardiogram Location: ER Height: 165.1 cm Weight: 73.03 kg BSA: 1.80 m2 Heart Rate: 72 bpm BP: 108 / 62 mmHg Public Health Veterinarian: Referring MD: Tavo Street MD Symptoms: hypotension. known HOCM. Study Quality: Fair Conclusions: - Normal left ventricular cavity size. There is mildly increased left ventricular wall thickness. The left ventricular systolic function is mild to moderately decreased. The visually estimated ejection fraction is between 35-40%. - LVOT peak gradient 165 mm Hg, Valsalva was not performed because has been lethargic and unable to co-operate. - The apex, apical anterior, and apical inferior segments are akinetic. - Normal right ventricular cavity size and systolic function. Findings Left Ventricle Normal left ventricular cavity size. There is mildly increased left ventricular wall thickness. The left ventricular systolic function is mild to moderately decreased. The visually estimated ejection fraction is between 35-40%. There is evidence of regional wall motion abnormalities. There is paradoxical septal motion consistent with a left bundle branch block. 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 There is systolic anterior motion of the mitral valve. Diastolic function is indeterminate on the basis of available data. LVOT peak gradient 165 mm Hg, Valsalva was not performed because has been lethargic and unable to co-operate. Wall Motion Rest Echo Findings The apex, apical anterior, and apical inferior segments are akinetic. Right Ventricle Normal right ventricular cavity size and systolic function. Atria The left atrium is moderately dilated. Aortic Valve The aortic valve was not well visualized. There is mild calcification of the aortic valve. There is mild aortic valve stenosis. There is no aortic valve regurgitation. Mitral Valve There is moderate mitral annular calcification. There is moderate to severe mitral valve regurgitation. There is no mitral valve stenosis. Pulmonic Valve The pulmonic valve is likely normal. Tricuspid Valve Normal tricuspid valve structure. There is mild to moderate tricuspid valve regurgitation. Normal right atrial pressure. Moderate pulmonary hypertension is present. Great Vessels All visible segments of the aorta are normal in size. Venous The inferior vena cava is normal in size and collapses greater than 50% with inspiration. Pericardium/Pleural There is no evidence of pericardial effusion. Prior Study Comparison Changes noted compared to prior study dated: 12/27/2023. EF 35 to 40%, LAD territory wall motion, peak gradient across LVOT 165 mm Hg. Measurements 2D Linear Measurements IVSd: 1.29 0.6-0.9/0.6-1.0 cm LVIDd: 4.36 3.9-5.3/4.2-5.9 cm LVIDd Index: 2.42 2.4-3.2/2.2-3.1 cm/m2 LVIDs: 3.09 2.0-3.6 cm LVPWd: 1.25 0.7-1.1 cm LA Diam: 4.80 2.7-3.8/3.0-4.0 cm LAIDs Index: 2.67 1.5-2.3 cm/m2 LV Mass: 255.45 67-162/88-224 g LV Mass Index: 141.92 43-95/49-115 g/m2 LVOT Diam: 2.20 3.0+(-)1.3 cm 2D Systolic Function EF 4C: 23.20 >55% EF 2C: 40.90 >55% EF BiP: 33.90 >55% Mitral Valve MV VTI: 0.46 MV Pk Yovani: 1.78 MV Mn Yovani: 1.03 MV Pk Grad: 13.00 MV Mn Grad: 5.00 MV Pk E: 1.06 MV PK A: 1.69 MV Decel Time: 195.00 E/A: 0.60 E'Lateral: 4.35 E'Medial: 3.92 E/E' Med: 27.00 E/E' Lat: 24.40 PHT: 57.00 MVA PHT: 3.86 MVA Continuity: 2.35 Decel [place]: 5.44 Aortic Valve AoV Pk Yovani: 2.58 AoV Mn Yovani: 1.74 AoV VTI: 0.56 AoV Pk Grad: 27.00 Aov Mn Grad: 14.00 JULIET Cont.VTI: 1.93 LVOT LVOT Pk Yovani: 1.15 LVOT Mn Yovani: 0.81 LVOT VTI: 0.28 LVOT Pk Grad: 5.00 LVOT Diam: 2.20 LVOT Area: 3.80 Diastolic Function MV Pk E: 1.06 MV Pk A: 1.69 E/A: 0.60 E'Medial: 3.92 E/E' Med: 27.00 E' Laterial: 4.35 E/E' Lat: 24.40 Right Ventricle TAPSE (mm): 21.30 TVS' Yovani: 15.90 Tricuspid Valve TR Pk Yovani: 3.39 TR Pk Grad: 46.00 RVSP: 50.00 Great Vessels Aorta Sinus of Valsalva: 2.90 2.0-3.5 cm Pulmonary Valve PV Pk Yovani: 1.18 Peak PV Grad: 6.00 Updated in Other Vendor System with Status of Final Tavo Street MD electronically signed on 03/03/2024 2:38:15 PM with status of Final
--- NOTE | 2024-03-03 11:02 | PC.NURSE ---
report recieved from RN. pt is diff to arrouse. daughter on phone with provider. DNR/DNI. central line is ok
[2024-03-03] MEDS: Phenylephrine HCL 20 MG in 0.9 % Sodium Chloride 250 ML 27.63 MG IVCONT (11:32)
--- NOTE | 2024-03-03 11:33 | P.CONCA_ITS ---
History of Present Illness History of Present Illness Date of Service: 03/03/24 Requesting physician: Suzie Castillo Chief complaint: HCM, shock, sepsis Narrative: 88-year-old female who presents presenting with shock and change in mental status. 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 She recently came with syncope and was treated for urinary tract infection and discharged home. The daughter is away in [place] and the patient called her and was not feeling well. His daughter called her friend who is a neighbor and she went to check on her and found her and she was not responding and looked quite sick. This led to her coming to the emergency department. She has chronic left bundle-branch block. She has been experiencing some chest pains off and on with activity and we were planning outpatient workup for that. She is saying that she had chest pain last week. She is quite sick appearing and unable to give a lot of history currently. She is being given fluid boluses. I have advised the ER to start her on phenylephrine with her history of left ventricular outflow tract obstruction. She has chronic left bundle-branch block. EKG does not have any Sgarbossa criteria. Her high sensitivity troponin level is more than 60,000 currently. She has acute kidney injury. [facility] Past Medical History Medical History Hyperlipidemia Hypertension Left bundle branch block Urge incontinence SEBASTIAN on CPAP Fibromyalgia Chronic polyneuropathy History of melanoma Asthma Diastolic dysfunction Social History Social History Household Members: Children Housing: House Do you presently have visiting nurse or other home services: No Unable to assess alcohol history related to: Unable to respond and Unknown Alcohol intake: former Patient Tobacco Use Status: Never used Tobacco Smoked in Last 30 Days: No Use of substances other than those prescribed or required for medical reasons: No Advance Directives: Yes Advance Directives Information Provided: Yes Advance Directives on File: No Advance Directives Date on File: 12/27/23 Do you have a plan to hurt others: No Plan service: No Meds Allergies Allergy/AdvReac Type Severity Reaction Status Date / Time hydroxyzine Allergy Hives Verified 03/03/24 09:34 imipramine Allergy Hives Verified 03/03/24 09:34 Active Medications: Current Medications Phenylephrine HCl 20 mg/ (Sodium Chloride) 252 mls @ 0 mls/hr IVCONT .Q0M SAMIA; Protocol Home Medications ?Medication ?Instructions ?Recorded ?Confirmed ?Last Taken ?Type albuterol sulfate 90 mcg/actuation 2 inh inhalation DAILY PRN SOB 12/27/23 02/29/24 Unknown History aerosol inhaler calcium carbonate 600 mg-vitamin 1 tab PO BID@0900,1800 12/27/23 02/29/24 02/28/24 09:00 History D3 5 mcg (200 unit) tablet (Calcium 600 + D(3)) gabapentin 300 mg capsule 300 mg PO TID@0900,1300,1800 12/27/23 02/29/24 02/28/24 13:00 History lamotrigine 100 mg tablet 100 mg PO BID@0900,1800 12/27/23 02/29/24 02/28/24 09:00 History lamotrigine 25 mg tablet 25 mg PO BID@0900,1800 12/27/23 02/29/24 02/28/24 09:00 History omeprazole 20 mg capsule,delayed 20 mg PO BID@0900,1800 12/27/23 02/29/24 02/28/24 09:00 History release vibegron 75 mg tablet (Gemtesa) 75 mg PO DAILY 12/27/23 02/29/24 02/28/24 09:00 History vit C 250 mg-vit E 90 mg-zinc 40 1 tab PO BID@0900,1800 12/27/23 02/29/24 02/28/24 09:00 History mg-copper 1 [id number] capsule (PreserVision AREDS-2) Probiotic 02/29/24 Unknown History atorvastatin 40 mg tablet 40 mg PO DAILY 02/29/24 02/29/24 02/28/24 09:00 History d-mannose 500 mg capsule 500 mg PO DAILY 02/29/24 02/29/24 02/28/24 09:00 History fluticasone 250 mcg-salmeterol 50 2 inh inhalation BID 02/29/24 02/29/24 02/28/24 09:00 History mcg/dose blistr powdr for inhalation furosemide 20 mg tablet 40 mg PO DAILY swelling 02/29/24 02/29/24 02/28/24 09:00 History magnesium citrate 02/29/24 Unknown History Physical Exam 2 Vital Signs: Vital Signs: Last Vital Signs Temp 100.3 F 03/03/24 09:32 Pulse 85 03/03/24 11:25 Resp 18 03/03/24 11:25 BP 73/43 L 03/03/24 11:25 Pulse Ox 98 03/03/24 11:25 O2 Del Method Room Air 03/03/24 11:25 BMI result Body Mass Index 26.8 GENERAL APPEARANCE: Ill-appearing, lethargic. SKIN: no suspicious lesions, warm and dry. HEART: Systolic murmur all over the precordium, regular rate and rhythm. LUNGS: clear to auscultation anteriorly. ABDOMEN: soft, nontender. EXTREMITIES: no edema. PERIPHERAL PULSES: equal. NEUROLOGIC: Lethargic. Responding to verbal commands. Objective Labs and Meds 03/03/24 09:40 03/03/24 09:40 Lab results: Laboratory Results - last 24 hr 03/03/24 03/03/24 03/03/24 09:40 09:42 09:46 WBC 14.7 H RBC 3.39 L Hgb 10.9 L Hct 32.8 L MCV 96.8 MCH 32.2 MCHC 33.2 RDW 14.3 Plt Count 115 L MPV 11.5 Immature Gran % (Auto) 0.8 H Neut % (Auto) 87.6 H Lymph % (Auto) 4.2 L [place] % (Auto) 6.3 Eos % (Auto) 0.7 Baso % (Auto) 0.4 Lymph # (Auto) 0.6 L [place] # (Auto) 0.9 Eos # (Auto) 0.1 Baso # (Auto) 0.1 Abs Immat Gran (auto) 0.11 H Absolute Neuts (auto) 12.8 H Absolute Nucleated RBC 0.000 Nucleated RBC % (auto) 0.0 VBG pH 7.43 VBG pCO2 38 VBG pO2 38 VBG HCO3 26 VBG O2 Saturation 62.0 VBG Base Excess 1.9 Sodium 143 Potassium 4.1 Chloride 107 Carbon Dioxide 25 Anion Gap 15 BUN 44 H Creatinine 2.45 H Estim Creat Clear Calc 15.9 Estimated GFR 19 POC Glucose Random Glucose 137 H Lactic Acid 3.2 H* Calcium 9.3 Magnesium 2.2 Total Bilirubin 0.7 Direct Bilirubin 0.3 AST 150 H ALT 28 Alkaline Phosphatase 69 Troponin I High Sens > 71688.0 H* D C-Reactive Protein 8.10 H B-Natriuretic Peptide 2763 H Total Protein 6.0 L Albumin 3.7 Lipase 27 Procalcitonin 10.14 Urine Color Urine Appearance Urine pH Ur Specific [place] Urine Protein Urine Glucose (UA) Urine Ketones Urine Blood Urine Nitrite Ur Leukocyte Esterase Urine RBC Urine WBC Ur Squamous Epith Cells Urine Bacteria Hyaline Casts Influenza Type A (PCR) NEGATIVE Influenza Type B (PCR) NEGATIVE RSV RNA Qual (PCR) NEGATIVE SARS-CoV-2 RNA (RT-PCR) NEGATIVE 03/03/24 03/03/24 09:53 10:35 WBC RBC Hgb Hct MCV MCH MCHC RDW Plt Count MPV Immature Gran % (Auto) Neut % (Auto) Lymph % (Auto) [place] % (Auto) Eos % (Auto) Baso % (Auto) Lymph # (Auto) [place] # (Auto) Eos # (Auto) Baso # (Auto) Abs Immat Gran (auto) Absolute Neuts (auto) Absolute Nucleated RBC Nucleated RBC % (auto) VBG pH VBG pCO2 VBG pO2 VBG HCO3 VBG O2 Saturation VBG Base Excess Sodium Potassium Chloride Carbon Dioxide Anion Gap BUN Creatinine Estim Creat Clear Calc Estimated GFR POC Glucose 123 H Random Glucose Lactic Acid Calcium Magnesium Total Bilirubin Direct Bilirubin AST ALT Alkaline Phosphatase Troponin I High Sens C-Reactive Protein B-Natriuretic Peptide Total Protein Albumin Lipase Procalcitonin Urine Color Dark Yellow Urine Appearance Clear Urine pH 5.5 Ur Specific [place] 1.015 Urine Protein 30 (1+) H Urine Glucose (UA) Negative Urine Ketones Negative Urine Blood Negative Urine Nitrite Negative Ur Leukocyte Esterase Moderate (2+) H Urine RBC 0-2 Urine WBC 6-10 H Ur Squamous Epith Cells 0-2 Urine Bacteria None Seen Hyaline Casts 0-2 Influenza Type A (PCR) Influenza Type B (PCR) RSV RNA Qual (PCR) SARS-CoV-2 RNA (RT-PCR) Imaging Radiologist's impression: Impressions Chest X-Ray 03/03/24 09:30 IMPRESSION: Resolution of the previously seen bilateral pleural effusions. Minimal perihilar opacities, significantly decreased. Electronically signed by: Waylon Schmidt MD 03/03/2024 11:30 AM EDT Assessment and Plan (1) Shock: Status: Acute (2) Dynamic left ventricular outflow obstruction: Status: Acute (3) Acute UTI: Status: Acute (4) NSTEMI (non-ST elevated myocardial infarction): Status: Acute Plan 88-year-old female with known history of LVOT obstruction with recent pneumonia and UTI. She left the hospital 1 day ago and now presenting for hypotension and shock with fever. She has chronic left bundle-branch block with no dynamic changes currently. Her high sensitive troponin level is more than 60,000. She does not have any chest pain or significant shortness of breath currently. Clinically does not appear to be in heart failure currently. She has systolic murmur all over the precordium due to LVOT obstruction. IV fluid resuscitation. Start phenylephrine drip. Broad-spectrum antibiotics. We will check echocardiogram to assess LVOT as well as any other cause for shock like pericardial effusion. We will also assess wall motion abnormality. If further pressors are required then vasopressin should be added. Avoid Levophed, dopamine and epinephrine. Check CPK because she had a fall to make sure she does not have rhabdomyolysis and that is why his troponins are elevated. Start heparin drip and give aspirin. She has advanced age and complex cardiovascular issues and is presenting with likely sepsis leading to LVOT obstruction. She also has significant troponin elevation. Prognosis is guarded. She is DNR/DNI as per my discussion with ER. Thank you for allowing me to participate in the care of your patient. Please feel free to contact me if you have any questions. Procedures Date of Service Date of Service: 03/03/24
--- NOTE | 2024-03-03 11:35 | PC.NURSE ---
Pt has been in [facility] since this RN arrival. BP s rising immediatly with start of phenelyephine and placement of burkett. pt responded to burkett insertion.
[2024-03-03 11:44] LABS: Reflex Lactate? Lactic Acid Added
--- NOTE | 2024-03-03 12:28 | MHC.EDTECH ---
I asked Dr. Castillo at 9:40 am if Patient in room sepis and he said no
--- NOTE | 2024-03-03 12:28 | PC.NURSE ---
Rn to RN harley Schaefer in ICU. They are ready to receive patient.
[2024-03-03 12:37] LABS: ~Lactic Acid-LAB USE ONLY 4.3 mmol/L (0.5-2.0)
[2024-03-03 13:06] LABS: INTERNATIONAL NORM RATIO 0.9 (0.9-1.1); Prothrombin Time 11.1 SEC (11.1-13.3)
--- NOTE | 2024-03-03 13:06 | PHA.MEDREC ---
Addendum entered by Kristel Aleman [facility] 03/03/24 13:33: Claim history seems to be for Symbicort 160/4.5 but both Advair and Symbicort get interchanged for Breo per P&T while in house Addendum entered by Sonia Corrigan 03/03/24 13:23: Called [facility] to see if patient picked up the Amoxicillin 875mg tab and they were able to verify that the patient picked up that medication yesterday. Original Note: Pharmacy Consult ? Medication Reconciliation Pharmacy has completed the medication reconciliation. Reviewed note from discharge 03/02 and saw that patient had a list from family previously brought in. Went down to get list and I was met with neighbour at bedside due to daughter being on a bus trip and son is on a plane coming home from vacation and she confirmed the list should be in the patient chart. I found the list and was able to confirm medications. It looks like the patient was discharged with Amoxicillin 875mg and not sure if she is on or not; when daughter comes in we will verify if her mom started the Amoxicillin 875mg and what dosings she was on for Magnesium and the Probiotic.
[2024-03-03 13:12] LABS: Partial Thromboplastin Time 23.5 SEC (26.0-36.8)
[2024-03-03] MEDS: Heparin Sodium,Porcine/1/2NS 25,000 UNIT/250 ML IV.SOLN 8.77 UNIT IVCONT (13:30)
[2024-03-03] MEDS: vancomycin HCL 1,250 MG in 0.9 % Sodium Chloride 250 ML 166.67 MG IV (13:33)
[2024-03-03 14:17] LABS: Reflex Lactate? 2 Y
--- NOTE | 2024-03-03 15:27 | P.HPCC_ITS ---
History of Present Illness Date of Service: 03/03/24 Chief Complaint: Septic shock, NSTEMI 88-year-old lady with underlying history of diastolic congestive heart failure, SEBASTIAN on CPAP, GERD, recent to [facility] [place] for urinary tract infection being admitted today after she presented complain of dizziness and lightheadedness. On ER evaluation patient hypotensive with poor response to initial IV fluid resuscitation requiring pressor support. Laboratory studies also significant for elevated troponin at 60,000. Cardiology consulted and evaluated patient in the emergency room with echocardiogram showing wall motion abnormalities. Patient started on heparin drip and empiric antibiotics and admitted to the intensive care unit. Review of Systems 2 Review of Systems: No Unobtainable due to mental condition or Unobtainable due to mental status PMFSH Past Medical History Medical History Hyperlipidemia Hypertension Left bundle branch block Urge incontinence SEBASTIAN on CPAP Fibromyalgia Chronic polyneuropathy History of melanoma Asthma Diastolic dysfunction Social History Social History Household Members: Family Housing: House Do you presently have visiting nurse or other home services: No Unable to assess alcohol history related to: Unable to respond and Unknown Alcohol intake: former Patient Tobacco Use Status: Never used Tobacco Smoked in Last 30 Days: No Use of substances other than those prescribed or required for medical reasons: No Do you feel safe in your current relationship?: No Current Relationship Spiritual Healthcare Practices: pt unable to respond Buddhist Healthcare Practices: pt unable to respond Cultural Healthcare Practices: pt unable to respond Advance Directives: Yes Advance Directives Information Provided: Yes Advance Directives on File: No Advance Directives Date on File: 12/27/23 Do you have a plan to hurt others: No Plan Patient : No : No Poor oral hygiene: No service: No Meds Allergies Allergy/AdvReac Type Severity Reaction Status Date / Time hydroxyzine Allergy Hives Verified 03/03/24 09:34 imipramine Allergy Hives Verified 03/03/24 09:34 Active Medications: Current Medications Heparin Sodium (Porcine) (Heparin Sodium,Porcine 5,000 Unit/Ml Vial) 2,900 unit 40 unit/kg (2900 unit) IVPUSH PROTOCOL BOLUS PRN; Protocol PRN Reason: 40 unit/kg - Heparin Protocol Heparin Sodium (Porcine) (Heparin Sodium,Porcine 5,000 Unit/Ml Vial) 5,800 unit 80 unit/kg (5800 unit) IVPUSH PROTOCOL BOLUS PRN; Protocol PRN Reason: 80 unit/kg - Heparin Protocol Phenylephrine HCl 20 mg/ (Sodium Chloride) 252 mls @ 0 mls/hr IVCONT .Q0M SAMIA; Protocol Last Titration: 03/03/24 14:09 Dose: 1 mcg/kg/min, 55.26 mls/hr Piperacillin Sod/Tazobactam (Sod 2.25 gm/ Sodium Chloride) 50 mls @ 100 mls/hr IV Q6H SAMIA Heparin Sodium/Sodium Chloride (Heparin Sodium,Porcine/1/2ns) 25,000 unit in 250 mls @ 0 mls/hr IVCONT .Q0M SAMIA; Protocol Last Admin: 03/03/24 13:30 Dose: 12 units/kg/hr, 8.77 mls/hr Home Medications ?Medication ?Instructions ?Recorded ?Confirmed ?Last Taken ?Type albuterol sulfate 90 mcg/actuation 2 inh inhalation DAILY PRN SOB 12/27/23 03/03/24 Unknown History aerosol inhaler calcium carbonate 600 mg-vitamin 1 tab PO BID@0900,1800 12/27/23 03/03/24 02/28/24 09:00 History D3 5 mcg (200 unit) tablet (Calcium 600 + D(3)) gabapentin 300 mg capsule 300 mg PO TID@0900,1300,1800 12/27/23 03/03/24 02/28/24 13:00 History lamotrigine 100 mg tablet 100 mg PO BID@0900,1800 12/27/23 03/03/24 02/28/24 09:00 History lamotrigine 25 mg tablet 50 mg PO BID@0900,1800 12/27/23 03/03/24 02/28/24 09:00 History omeprazole 20 mg capsule,delayed 20 mg PO BID@0900,1800 12/27/23 03/03/24 02/28/24 09:00 History release vibegron 75 mg tablet (Gemtesa) 75 mg PO DAILY 12/27/23 03/03/24 02/28/24 09:00 History vit C 250 mg-vit E 90 mg-zinc 40 1 tab PO BID@0900,1800 12/27/23 03/03/24 02/28/24 09:00 History mg-copper 1 [id number] capsule (PreserVision AREDS-2) atorvastatin 40 mg tablet 40 mg PO DAILY 02/29/24 03/03/24 02/28/24 09:00 History d-mannose 500 mg capsule 500 mg PO DAILY 02/29/24 03/03/24 02/28/24 09:00 History fluticasone 250 mcg-salmeterol 50 2 inh inhalation BID 02/29/24 03/03/24 02/28/24 09:00 History mcg/dose blistr powdr for inhalation furosemide 20 mg tablet 40 mg PO DAILY swelling 02/29/24 03/03/24 02/28/24 09:00 History magnesium citrate 100 mg tablet 100 mg PO BID@0900,1800 03/03/24 03/03/24 Unknown History Physical Exam 2 Vital Signs: Vital Signs: Last Vital Signs Temp 98.8 F 03/03/24 14:00 Pulse 73 03/03/24 14:09 Resp 12 03/03/24 14:00 BP 90/46 L 03/03/24 14:09 Pulse Ox 98 03/03/24 14:00 O2 Del Method Room Air 03/03/24 14:00 BMI result Body Mass Index 26.8 Const: General: no acute distress and lethargic (Arousable) O rientation/consciousness: lethargic (Arousable) Eyes: Sclerae: sclerae normal EOM: EOMs intact bilaterally Neck: Neck: Yes no lymphadenopathy, Yes trachea midline and Yes supple Resp: Effort & Inspection: normal respiratory effort and no respiratory distress Auscultation: clear to auscultation bilaterally Cardio: Rate: regular rate Rhythm: regular rhythm Heart sounds: no gallops, no murmurs and no rubs GI: Palpation (GI): Soft to palpation and Other GI palpation findings present ( Nontender) Auscultation: normal bowel sounds Extrem: General: Yes no pedal edema, No clubbing and No cyanosis Results Labs 03/03/24 09:40 03/03/24 09:40 Labs: Laboratory Results - last 24 hr 03/03/24 03/03/24 03/03/24 09:40 09:42 09:46 MCV 96.8 MCH 32.2 MCHC 33.2 RDW 14.3 Plt Count 115 L MPV 11.5 Immature Gran % (Auto) 0.8 H Neut % (Auto) 87.6 H Lymph % (Auto) 4.2 L [place] % (Auto) 6.3 Eos % (Auto) 0.7 Baso % (Auto) 0.4 Lymph # (Auto) 0.6 L [place] # (Auto) 0.9 Eos # (Auto) 0.1 Baso # (Auto) 0.1 Abs Immat Gran (auto) 0.11 H Absolute Neuts (auto) 12.8 H Absolute Nucleated RBC 0.000 Nucleated RBC % (auto) 0.0 PT INR APTT VBG pH 7.43 VBG pCO2 38 VBG pO2 38 VBG HCO3 26 VBG O2 Saturation 62.0 VBG Base Excess 1.9 Anion Gap 15 Estim Creat Clear Calc 15.9 Estimated GFR 19 POC Glucose Random Glucose 137 H Lactic Acid 3.2 H* Lactic Acid F/U @ 2Hr Calcium 9.3 Magnesium 2.2 Total Bilirubin 0.7 Direct Bilirubin 0.3 AST 150 H ALT 28 Alkaline Phosphatase 69 Total Creatine Kinase 2054 H Troponin I High Sens > 62151.0 H* D C-Reactive Protein 8.10 H B-Natriuretic Peptide 2763 H Total Protein 6.0 L Albumin 3.7 Lipase 27 Procalcitonin 10.14 Urine Color Urine Appearance Urine pH Ur Specific [place] Urine Protein Urine Glucose (UA) Urine Ketones Urine Blood Urine Nitrite Ur Leukocyte Esterase Urine RBC Urine WBC Ur Squamous Epith Cells Urine Bacteria Hyaline Casts Influenza Type A (PCR) NEGATIVE Influenza Type B (PCR) NEGATIVE RSV RNA Qual (PCR) NEGATIVE SARS-CoV-2 RNA (RT-PCR) NEGATIVE 03/03/24 03/03/24 03/03/24 09:53 10:35 12:15 MCV MCH MCHC RDW Plt Count MPV Immature Gran % (Auto) Neut % (Auto) Lymph % (Auto) [place] % (Auto) Eos % (Auto) Baso % (Auto) Lymph # (Auto) [place] # (Auto) Eos # (Auto) Baso # (Auto) Abs Immat Gran (auto) Absolute Neuts (auto) Absolute Nucleated RBC Nucleated RBC % (auto) PT INR APTT VBG pH VBG pCO2 VBG pO2 VBG HCO3 VBG O2 Saturation VBG Base Excess Anion Gap Estim Creat Clear Calc Estimated GFR POC Glucose 123 H Random Glucose Lactic Acid Lactic Acid F/U @ 2Hr 4.3 H* Calcium Magnesium Total Bilirubin Direct Bilirubin AST ALT Alkaline Phosphatase Total Creatine Kinase Troponin I High Sens C-Reactive Protein B-Natriuretic Peptide Total Protein Albumin Lipase Procalcitonin Urine Color Dark Yellow Urine Appearance Clear Urine pH 5.5 Ur Specific [place] 1.015 Urine Protein 30 (1+) H Urine Glucose (UA) Negative Urine Ketones Negative Urine Blood Negative Urine Nitrite Negative Ur Leukocyte Esterase Moderate (2+) H Urine RBC 0-2 Urine WBC 6-10 H Ur Squamous Epith Cells 0-2 Urine Bacteria None Seen Hyaline Casts 0-2 Influenza Type A (PCR) Influenza Type B (PCR) RSV RNA Qual (PCR) SARS-CoV-2 RNA (RT-PCR) 03/03/24 12:34 MCV MCH MCHC RDW Plt Count MPV Immature Gran % (Auto) Neut % (Auto) Lymph % (Auto) [place] % (Auto) Eos % (Auto) Baso % (Auto) Lymph # (Auto) [place] # (Auto) Eos # (Auto) Baso # (Auto) Abs Immat Gran (auto) Absolute Neuts (auto) Absolute Nucleated RBC Nucleated RBC % (auto) PT 11.1 INR 0.9 APTT 23.5 L D VBG pH VBG pCO2 VBG pO2 VBG HCO3 VBG O2 Saturation VBG Base Excess Anion Gap Estim Creat Clear Calc Estimated GFR POC Glucose Random Glucose Lactic Acid Lactic Acid F/U @ 2Hr Calcium Magnesium Total Bilirubin Direct Bilirubin AST ALT Alkaline Phosphatase Total Creatine Kinase Troponin I High Sens C-Reactive Protein B-Natriuretic Peptide Total Protein Albumin Lipase Procalcitonin Urine Color Urine Appearance Urine pH Ur Specific [place] Urine Protein Urine Glucose (UA) Urine Ketones Urine Blood Urine Nitrite Ur Leukocyte Esterase Urine RBC Urine WBC Ur Squamous Epith Cells Urine Bacteria Hyaline Casts Influenza Type A (PCR) Influenza Type B (PCR) RSV RNA Qual (PCR) SARS-CoV-2 RNA (RT-PCR) Imaging Radiologist's Impressions: Impressions Chest X-Ray 03/03/24 09:30 IMPRESSION: Resolution of the previously seen bilateral pleural effusions. Minimal perihilar opacities, significantly decreased. Electronically signed by: Waylon Schmidt MD 03/03/2024 11:30 AM EDT Abdomen/Pelvis CT 03/03/24 10:11 IMPRESSION: 1. Bilateral multiple renal calculi, much larger in the left kidney. 2. No evidence of hydronephrosis. 3. Prominent left perinephric soft tissue stranding, could be concerning for pyelonephritis. 4. Sigmoid diverticulosis without evidence of diverticulitis. 5. Status post cholecystectomy. Fleischner guidelines were followed. Electronically signed by: Urbano Faustin MD 03/03/2024 12:44 PM EDT RP Head CT 03/03/24 10:14 IMPRESSION: 1. 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 2. 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 3. Unchanged bilateral thalamic lacunar infarcts, chronic bilateral external capsule infarcts. 4. No intracranial hemorrhage or skull fracture is seen. 5. No evidence of space occupying lesion could be found. 6. The current plain CT scan of the brain shows no diagnostic evidence of acute cerebral infarction. Electronically signed by: Urbano Faustin MD 03/03/2024 01:00 PM EDT RP Assessment and Plan (1) Acute UTI: Status: Acute (2) Sepsis: Qualifiers: Acute renal failure type: unspecified Sepsis acute organ dysfunction status: with acute organ dysfunction Sepsis type: sepsis due to unspecified organism Severe sepsis acute organ dysfunction type: acute renal failure S evere sepsis shock status: with septic shock Qualified Code(s): A41.9 - Sepsis, unspecified organism; R65.21 - Severe sepsis with septic shock; N17.9 - Acute kidney failure, unspecified Status: Acute (3) Non-ST elevation OK (NSTEMI): Status: Acute (4) Shock: Status: Acute (5) Chronic diastolic heart failure: Status: Acute (6) Dynamic left ventricular outflow obstruction: Status: Acute Plan Assessment: 88-year-old lady admitted with septic versus cardiogenic shock requiring pressor support. Plan: Neuro: No acute issues. Cardiac: Shock, septic versus cardiogenic. Continue to titrate off pressor support as tolerated. NSTEMI with wall motion abnormalities. Cardiology service care appreciated. Continue heparin drip. Pulmonary: No acute issues. Renal: No acute issues. Endo: No acute issues. GI: No acute issues. ID: Likely underlying UTI. Continue broad-spectrum antibiotics. Cultures are pending. Heme/Onc: No acute issues. Psych: No acute issues. Miscellaneous: No acute issues. Prophylaxis: Heparin drip Diet: NPO Critical care time spent: 60 minutes
[2024-03-03 16:18] LABS: ~Lactic Acid-LAB USE ONLY 2.3 mmol/L (0.5-2.0)
[2024-03-03] MEDS: Phenylephrine HCL 20 MG in 0.9 % Sodium Chloride 250 ML 38.69 MG IVCONT (17:05)
[2024-03-03 19:58] LABS: PTT Heparin Drip 100.2 SEC (53-77.9)
[2024-03-03 20:55] LABS: Alanine Aminotransferase 37 U/L (0-31); Albumin Level 3.1 g/dL (3.5-5.0); Alkaline Phosphatase 69 U/L (39-117); Anion Gap 13 (12-20); Aspartate Amino Transferase 213 U/L (5-31); Bilirubin Total 0.7 mg/dL (0.0-1.0); Blood Urea Nitrogen 40 mg/dL (9-16); Calcium 8.6 mg/dL (8.4-10.2); Carbon Dioxide 23 mmol/L (22-29); Chloride 112 mmol/L (96-108); Creatinine Clr Calc Pharmacy 24.1; Estimated Glomerular Filt Rate 30; Glucose Random 109 mg/dL (60-115); Magnesium 2.2 mg/dL (1.6-2.6); Phosphorus 2.8 mg/dL (2.7-4.5); Potassium 3.7 mmol/L (3.3-5.1); Sodium 144 mmol/L (135-145); Total Protein 5.1 g/dL (6.5-8.0)
[2024-03-03 21:40] LABS: Troponin-I High Sensitivity > 60000.0 ng/L (<3.5-17.0)
[2024-03-03] MEDS: Clopidogrel Bisulfate 300 MG TABLET PO (22:16)
[2024-03-03] MEDS: Piperacillin Sodium/Tazobactam 2.25 GM in 0.9 % Sodium Chloride 50 ML IV (22:17)
[2024-03-04] VITALS (41 sets, daily range): BP systolic 68–169; BP diastolic 34–89; PULSE 56–81; RESP 12–26; TEMP 37–37.9; O2SAT 93–99; BMI 28.0
--- NOTE | 2024-03-04 | ECG_ITS ---
Test Reason : NSTEMI Blood Pressure : / mmHG Vent. Rate : 064 BPM Atrial Rate : 064 BPM P-R Int : 174 ms QRS Dur : 148 ms QT Int : 492 ms P-R-T Axes : 051 -17 213 degrees QTc Int : 507 ms Normal sinus rhythm Left bundle branch block Abnormal ECG When compared with ECG of 03-MAR-2024 09:40, QT has lengthened Referred By: Tavo Street Electronically Signed By:ERENDIRA ARORA
[2024-03-04] MEDS: Phenylephrine HCL 20 MG in 0.9 % Sodium Chloride 250 ML 38.69 MG IVCONT ×3 (00:26→14:58)
[2024-03-04 03:35] LABS: PTT Heparin Drip 58.4 SEC (53-77.9)
[2024-03-04] MEDS: Piperacillin Sodium/Tazobactam 2.25 GM in 0.9 % Sodium Chloride 50 ML IV (04:15)
[2024-03-04 06:14] LABS: MANUAL DIFF FLAG NO
[2024-03-04 06:17] LABS: Hematocrit 29.9 % (37.0-47.0); Hemoglobin 9.8 g/dl (12.0-16.0); Mean Corpuscular HGB Conc 32.8 g/dl (31.0-35.0); Mean Corpuscular Volume 97.7 fL (80.0-98.0); Mean Platelet Volume 11.6 fL (9.4-12.3); Platelet Count 112 X10*3/uL (160-400); Red Blood Count 3.06 X10*6/uL (4.20-5.50); Red Cell Distribution Width 14.5 % (11.0-16.0); White Blood Count 11.1 X10*3/uL (4.8-10.8)
[2024-03-04 06:19] LABS: Basophils Absolute Auto 0.1 X10*3/uL (0.0-0.2); Basophils Percent Auto 0.4 % (0-2); Eosinophils Absolute Auto 0.6 X10*3/uL (0.0-0.4); Eosinophils Percent Auto 5.4 % (0-4); Hematocrit 29.3 % (37.0-47.0); Hemoglobin 9.7 g/dl (12.0-16.0); Imm Gran Abs Auto 0.02 X10*3/uL (0.00-0.03); Imm Gran Pct Auto 0.2 % (0.0-0.4); Lymphocytes Absolute Auto 1.3 X10*3/uL (1.2-4.9); Lymphocytes Percent Auto 11.9 % (20-40); Mean Corpuscular HGB Conc 33.1 g/dl (31.0-35.0); Mean Corpuscular Hemoglobin 31.9 pg (27.0-33.0); Mean Corpuscular Volume 96.4 fL (80.0-98.0); Mean Platelet Volume 11.3 fL (9.4-12.3); Monocytes Absolute Auto 0.6 X10*3/uL (0.1-1.2); Monocytes Percent Auto 5.3 % (2-11); Neutrophils Absolute Auto 8.6 x10*3/uL (2.0-8.3); Neutrophils Percent Auto 76.8 % (45-73); Platelet Count 108 X10*3/uL (160-400); Red Blood Count 3.04 X10*6/uL (4.20-5.50); Red Cell Distribution Width 14.4 % (11.0-16.0); Venous Blood Gas Refer to POC result; White Blood Count 11.2 X10*3/uL (4.8-10.8)
[2024-03-04 06:20] LABS: VBG HCO3 25 mmol/L (22-26); VBG pCO2 33 mmHg; VBG pH 7.48 (7.32-7.43); VBG pO2 110 mmHg
[2024-03-04 06:21] LABS: INTERNATIONAL NORM RATIO 1.1 (0.9-1.1); Prothrombin Time 13.3 SEC (11.1-13.3)
[2024-03-04 06:32] LABS: Alanine Aminotransferase 39 U/L (0-31); Albumin Level 2.9 g/dL (3.5-5.0); Alkaline Phosphatase 70 U/L (39-117); Anion Gap 13 (12-20); Aspartate Amino Transferase 199 U/L (5-31); Bilirubin Total 0.7 mg/dL (0.0-1.0); Blood Urea Nitrogen 39 mg/dL (9-16); Calcium 8.3 mg/dL (8.4-10.2); Carbon Dioxide 23 mmol/L (22-29); Chloride 111 mmol/L (96-108); Creatinine Clr Calc Pharmacy 30.1; Estimated Glomerular Filt Rate 38; Glucose Random 99 mg/dL (60-115); Magnesium 2.1 mg/dL (1.6-2.6); Phosphorus 2.5 mg/dL (2.7-4.5); Potassium 3.6 mmol/L (3.3-5.1); Sodium 143 mmol/L (135-145)
[2024-03-04] MEDS: Potassium Phosphate/NS 15 MMOL/250 ML PLAST..BAG 62.5 MMOL IV (07:35)
[2024-03-04] MEDS: Clopidogrel Bisulfate 75 MG TABLET PO (08:22)
[2024-03-04 09:16] LABS: PTT Heparin Drip 56.2 SEC (53-77.9)
--- NOTE | 2024-03-04 11:08 | PM.PNCARD ---
Subjective Subjective Date of Service: 03/04/24 Interval history: Seen and examined at bedside. Feeling better today. Denying any active symptoms currently. Continues to be on low-dose phenylephrine. She is on heparin drip. She was loaded with Plavix and is currently on aspirin and Plavix for NSTEMI. Physical Exam Vital Signs: Last Vital Signs Temp 99.1 F 03/04/24 11:00 Pulse 58 03/04/24 11:00 Resp 18 03/04/24 11:00 BP 109/50 L 03/04/24 11:00 Pulse Ox 98 03/04/24 11:00 O2 Del Method Room Air 03/04/24 11:00 BMI result Body Mass Index 28.0 GENERAL APPEARANCE: In no acute distress. Pleasant. SKIN: no suspicious lesions, warm and dry. HEART: Systolic murmur all over the precordium, regular rate and rhythm. Holosystolic murmur apex. LUNGS: clear to auscultation anteriorly. ABDOMEN: soft, nontender. EXTREMITIES: no edema. PERIPHERAL PULSES: equal. NEUROLOGIC: Alert and awake. Nonfocal. Objective Labs and Meds 03/04/24 06:07 03/04/24 06:07 Lab results: Laboratory Results - last 24 hr 03/03/24 03/03/24 03/03/24 09:40 12:15 12:34 WBC RBC Hgb Hct MCV MCH MCHC RDW Plt Count MPV Immature Gran % (Auto) Neut % (Auto) Lymph % (Auto) [place] % (Auto) Eos % (Auto) Baso % (Auto) Lymph # (Auto) [place] # (Auto) Eos # (Auto) Baso # (Auto) Abs Immat Gran (auto) Absolute Neuts (auto) Absolute Nucleated RBC Nucleated RBC % (auto) Hold Purple Top PT 11.1 INR 0.9 APTT 23.5 L D aPTT Heparin Protocol VBG pH VBG pCO2 VBG pO2 VBG HCO3 VBG O2 Saturation VBG Base Excess Sodium Potassium Chloride Carbon Dioxide Anion Gap BUN Creatinine Estim Creat Clear Calc Estimated GFR Random Glucose Lactic Acid F/U @ 2Hr 4.3 H* Lactic Acid F/U @ 4Hr Calcium Phosphorus Magnesium Total Bilirubin AST ALT Alkaline Phosphatase Total Creatine Kinase 2054 H Troponin I High Sens Total Protein Albumin 03/03/24 03/03/24 03/03/24 15:38 19:29 20:19 WBC RBC Hgb Hct MCV MCH MCHC RDW Plt Count MPV Immature Gran % (Auto) Neut % (Auto) Lymph % (Auto) [place] % (Auto) Eos % (Auto) Baso % (Auto) Lymph # (Auto) [place] # (Auto) Eos # (Auto) Baso # (Auto) Abs Immat Gran (auto) Absolute Neuts (auto) Absolute Nucleated RBC Nucleated RBC % (auto) Hold Purple Top SEE NOTE PT INR APTT aPTT Heparin Protocol 100.2 H VBG pH VBG pCO2 VBG pO2 VBG HCO3 VBG O2 Saturation VBG Base Excess Sodium 144 Potassium 3.7 Chloride 112 H Carbon Dioxide 23 Anion Gap 13 BUN 40 H Creatinine 1.61 H Estim Creat Clear Calc 24.1 Estimated GFR 30 Random Glucose 109 Lactic Acid F/U @ 2Hr Lactic Acid F/U @ 4Hr 2.3 H* Calcium 8.6 D Phosphorus 2.8 Magnesium 2.2 Total Bilirubin 0.7 AST 213 H ALT 37 H Alkaline Phosphatase 69 Total Creatine Kinase Troponin I High Sens > 06326.0 H* Total Protein 5.1 L Albumin 3.1 L 03/04/24 03/04/24 03/04/24 03:08 06:07 06:07 WBC 11.2 H 11.1 H RBC 3.04 L Hgb Hct MCV MCH MCHC RDW Plt Count MPV Immature Gran % (Auto) Neut % (Auto) Lymph % (Auto) [place] % (Auto) Eos % (Auto) Baso % (Auto) Lymph # (Auto) [place] # (Auto) Eos # (Auto) Baso # (Auto) Abs Immat Gran (auto) Absolute Neuts (auto) Absolute Nucleated RBC Nucleated RBC % (auto) Hold Purple Top PT INR APTT aPTT Heparin Protocol 58.4 D VBG pH VBG pCO2 VBG pO2 VBG HCO3 VBG O2 Saturation VBG Base Excess Sodium Potassium Chloride Carbon Dioxide Anion Gap BUN Creatinine Estim Creat Clear Calc Estimated GFR Random Glucose Lactic Acid F/U @ 2Hr Lactic Acid F/U @ 4Hr Calcium Phosphorus Magnesium Total Bilirubin AST ALT Alkaline Phosphatase Total Creatine Kinase Troponin I High Sens Total Protein Albumin 03/04/24 03/04/24 03/04/24 06:07 06:07 06:07 WBC RBC 3.06 L Hgb 9.7 L 9.8 L Hct 29.3 L 29.9 L MCV 96.4 MCH MCHC RDW Plt Count MPV Immature Gran % (Auto) Neut % (Auto) Lymph % (Auto) [place] % (Auto) Eos % (Auto) Baso % (Auto) Lymph # (Auto) [place] # (Auto) Eos # (Auto) Baso # (Auto) Abs Immat Gran (auto) Absolute Neuts (auto) Absolute Nucleated RBC Nucleated RBC % (auto) Hold Purple Top PT INR APTT aPTT Heparin Protocol VBG pH VBG pCO2 VBG pO2 VBG HCO3 VBG O2 Saturation VBG Base Excess Sodium Potassium Chloride Carbon Dioxide Anion Gap BUN Creatinine Estim Creat Clear Calc Estimated GFR Random Glucose Lactic Acid F/U @ 2Hr Lactic Acid F/U @ 4Hr Calcium Phosphorus Magnesium Total Bilirubin AST ALT Alkaline Phosphatase Total Creatine Kinase Troponin I High Sens Total Protein Albumin 03/04/24 03/04/24 03/04/24 06:07 06:07 06:07 WBC RBC Hgb Hct MCV 97.7 MCH 31.9 32.0 MCHC 33.1 32.8 RDW 14.4 Plt Count MPV Immature Gran % (Auto) Neut % (Auto) Lymph % (Auto) [place] % (Auto) Eos % (Auto) Baso % (Auto) Lymph # (Auto) [place] # (Auto) Eos # (Auto) Baso # (Auto) Abs Immat Gran (auto) Absolute Neuts (auto) Absolute Nucleated RBC Nucleated RBC % (auto) Hold Purple Top PT INR APTT aPTT Heparin Protocol VBG pH VBG pCO2 VBG pO2 VBG HCO3 VBG O2 Saturation VBG Base Excess Sodium Potassium Chloride Carbon Dioxide Anion Gap BUN Creatinine Estim Creat Clear Calc Estimated GFR Random Glucose Lactic Acid F/U @ 2Hr Lactic Acid F/U @ 4Hr Calcium Phosphorus Magnesium Total Bilirubin AST ALT Alkaline Phosphatase Total Creatine Kinase Troponin I High Sens Total Protein Albumin 03/04/24 03/04/24 03/04/24 06:07 06:07 06:07 WBC RBC Hgb Hct MCV MCH MCHC RDW 14.5 Plt Count 108 L 112 L MPV 11.3 11.6 Immature Gran % (Auto) 0.2 Neut % (Auto) 76.8 H Lymph % (Auto) 11.9 L [place] % (Auto) 5.3 Eos % (Auto) 5.4 H Baso % (Auto) 0.4 Lymph # (Auto) 1.3 [place] # (Auto) 0.6 Eos # (Auto) 0.6 H Baso # (Auto) 0.1 Abs Immat Gran (auto) 0.02 Absolute Neuts (auto) 8.6 H Absolute Nucleated RBC 0.000 Nucleated RBC % (auto) Hold Purple Top PT INR APTT aPTT Heparin Protocol VBG pH VBG pCO2 VBG pO2 VBG HCO3 VBG O2 Saturation VBG Base Excess Sodium Potassium Chloride Carbon Dioxide Anion Gap BUN Creatinine Estim Creat Clear Calc Estimated GFR Random Glucose Lactic Acid F/U @ 2Hr Lactic Acid F/U @ 4Hr Calcium Phosphorus Magnesium Total Bilirubin AST ALT Alkaline Phosphatase Total Creatine Kinase Troponin I High Sens Total Protein Albumin 03/04/24 03/04/24 03/04/24 06:07 06:07 06:14 WBC RBC Hgb Hct MCV MCH MCHC RDW Plt Count MPV Immature Gran % (Auto) Neut % (Auto) Lymph % (Auto) [place] % (Auto) Eos % (Auto) Baso % (Auto) Lymph # (Auto) [place] # (Auto) Eos # (Auto) Baso # (Auto) Abs Immat Gran (auto) Absolute Neuts (auto) Absolute Nucleated RBC 0.000 Nucleated RBC % (auto) 0.0 0.0 Hold Purple Top PT 13.3 INR 1.1 APTT aPTT Heparin Protocol VBG pH 7.48 H VBG pCO2 33 VBG pO2 110 VBG HCO3 25 VBG O2 Saturation 99.0 VBG Base Excess 2.0 Sodium 143 Potassium 3.6 Chloride 111 H Carbon Dioxide 23 Anion Gap 13 BUN 39 H Creatinine 1.32 Estim Creat Clear Calc 30.1 Estimated GFR 38 Random Glucose 99 Lactic Acid F/U @ 2Hr Lactic Acid F/U @ 4Hr Calcium 8.3 L Phosphorus 2.5 L Magnesium 2.1 Total Bilirubin 0.7 AST 199 H ALT 39 H Alkaline Phosphatase 70 Total Creatine Kinase Troponin I High Sens 28673.3 H* Total Protein 5.0 L Albumin 2.9 L 03/04/24 09:02 WBC RBC Hgb Hct MCV MCH MCHC RDW Plt Count MPV Immature Gran % (Auto) Neut % (Auto) Lymph % (Auto) [place] % (Auto) Eos % (Auto) Baso % (Auto) Lymph # (Auto) [place] # (Auto) Eos # (Auto) Baso # (Auto) Abs Immat Gran (auto) Absolute Neuts (auto) Absolute Nucleated RBC Nucleated RBC % (auto) Hold Purple Top PT INR APTT aPTT Heparin Protocol 56.2 VBG pH VBG pCO2 VBG pO2 VBG HCO3 VBG O2 Saturation VBG Base Excess Sodium Potassium Chloride Carbon Dioxide Anion Gap BUN Creatinine Estim Creat Clear Calc Estimated GFR Random Glucose Lactic Acid F/U @ 2Hr Lactic Acid F/U @ 4Hr Calcium Phosphorus Magnesium Total Bilirubin AST ALT Alkaline Phosphatase Total Creatine Kinase Troponin I High Sens Total Protein Albumin Imaging Radiologist's impression: Impressions Chest X-Ray 03/03/24 09:30 IMPRESSION: Resolution of the previously seen bilateral pleural effusions. Minimal perihilar opacities, significantly decreased. Electronically signed by: Waylon Schmidt MD 03/03/2024 11:30 AM EDT RP Abdomen/Pelvis CT 03/03/24 10:11 IMPRESSION: 1. Bilateral multiple renal calculi, much larger in the left kidney. 2. No evidence of hydronephrosis. 3. Prominent left perinephric soft tissue stranding, could be concerning for pyelonephritis. 4. Sigmoid diverticulosis without evidence of diverticulitis. 5. Status post cholecystectomy. Fleischner guidelines were followed. Electronically signed by: Urbano Faustin MD 03/03/2024 12:44 PM EDT RP Head CT 03/03/24 10:14 IMPRESSION: 1. 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 2. 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 3. Unchanged bilateral thalamic lacunar infarcts, chronic bilateral external capsule infarcts. 4. No intracranial hemorrhage or skull fracture is seen. 5. No evidence of space occupying lesion could be found. 6. The current plain CT scan of the brain shows no diagnostic evidence of acute cerebral infarction. Electronically signed by: Urbano Faustin MD 03/03/2024 01:00 PM EDT RP Progress Note: A&P Assessment and plan (1) Sepsis: Status: Acute (2) Non-ST elevation SD (NSTEMI): Status: Acute (3) Dynamic left ventricular outflow obstruction: Status: Acute Plan 88-year-old female presenting with shock. She has recent UTI and concern for sepsis and is on broad-spectrum antibiotics currently. 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 In the setting of sepsis her LVOT obstruction worsened with potentially played a role in her hypotension. She has done well with fluid resuscitation gently and phenylephrine drip. She has moderate to severe mitral regurgitation by echocardiography but it is anteriorly directed and does not appears to be due to systolic anterior motion of the mitral valve because usually you will see posteriorly directed mitral regurgitation in that case. Clinically not in heart failure. She had significant NSTEMI and I think this was an event in the LAD territory. She is on heparin drip. She is on aspirin and Plavix. She should continue the dual antiplatelet therapy for now. I had a detailed discussion with the patient's family at bedside. She will receive supportive care for now. Her kidney function is already improving. If she makes good recovery then we can discuss whether she should go for diagnostic angiography. This is to be decided. Avoid vasodilators as they may worsen her LVOT obstruction. Volume status appears to be optimal currently. She should be encouraged to eat and drink. Thank you for allowing me to participate in the care of your patient. Please feel free to contact me if you have any questions. Time Spent With Patient Time: Total time managing care of this patient today ____ minutes. Procedures Date of Service Date of Service: 03/04/24
[2024-03-04] MEDS: Albumin Human 25 % 100 ML IV ×3 (11:11→20:47)
[2024-03-04] MEDS: Piperacillin Sodium/Tazobactam 3.375 GM in 0.9 % Sodium Chloride 50 ML IV ×3 (11:12→22:17)
--- NOTE | 2024-03-04 11:41 | P.PNCC_ITS ---
Subjective Subjective Date of Service: 03/04/24 Interval History: 88-year-old lady with underlying history of diastolic congestive heart failure, SEBASTIAN on CPAP, GERD, recent to [facility] for urinary tract infection being admitted today after she presented complain of dizziness and lightheadedness. On ER evaluation patient hypotensive with poor response to initial IV fluid resuscitation requiring pressor support. Laboratory studies also significant for elevated troponin at 60,000. Cardiology consulted and evaluated patient in the emergency room with echocardiogram showing wall motion abnormalities. Patient started on heparin drip and empiric antibiotics and admitted to the intensive care unit. No events overnight. Pressor requirements and troponin level are improving. Critical Care Time (minutes): 60 Physical Exam 2 Vital Signs: Vital Signs: Last Vital Signs Temp 99.1 F 03/04/24 11:00 Pulse 58 03/04/24 11:00 Resp 18 03/04/24 11:00 BP 109/50 L 03/04/24 11:00 Pulse Ox 98 03/04/24 11:00 O2 Del Method Room Air 03/04/24 11:00 BMI result Body Mass Index 28.0 Const: General: no acute distress, alert and awake Eyes: Sclerae: sclerae normal EOM: EOMs intact bilaterally Neck: Neck: Yes no lymphadenopathy, Yes trachea midline and Yes supple Resp: Effort & Inspection: normal respiratory effort and no respiratory distress Auscultation: clear to auscultation bilaterally Cardio: Rate: regular rate Rhythm: regular rhythm Heart sounds: no gallops, no murmurs and no rubs GI: Palpation (GI): Soft to palpation and Other GI palpation findings present ( Nontender) Auscultation: normal bowel sounds Extrem: General: Yes no pedal edema, No clubbing and No cyanosis Objective Data Labs 03/04/24 06:07 03/04/24 06:07 Labs: Laboratory Results - last 24 hr 03/03/24 03/03/24 03/03/24 09:40 12:15 12:34 WBC RBC Hgb Hct MCV MCH MCHC RDW Plt Count MPV Immature Gran % (Auto) Neut % (Auto) Lymph % (Auto) [place] % (Auto) Eos % (Auto) Baso % (Auto) Lymph # (Auto) [place] # (Auto) Eos # (Auto) Baso # (Auto) Abs Immat Gran (auto) Absolute Neuts (auto) Absolute Nucleated RBC Nucleated RBC % (auto) Hold Purple Top PT 11.1 INR 0.9 APTT 23.5 L D aPTT Heparin Protocol VBG pH VBG pCO2 VBG pO2 VBG HCO3 VBG O2 Saturation VBG Base Excess Sodium Potassium Chloride Carbon Dioxide Anion Gap BUN Creatinine Estim Creat Clear Calc Estimated GFR Random Glucose Lactic Acid F/U @ 2Hr 4.3 H* Lactic Acid F/U @ 4Hr Calcium Phosphorus Magnesium Total Bilirubin AST ALT Alkaline Phosphatase Total Creatine Kinase 2054 H Troponin I High Sens Total Protein Albumin 03/03/24 03/03/24 03/03/24 15:38 19:29 20:19 WBC RBC Hgb Hct MCV MCH MCHC RDW Plt Count MPV Immature Gran % (Auto) Neut % (Auto) Lymph % (Auto) [place] % (Auto) Eos % (Auto) Baso % (Auto) Lymph # (Auto) [place] # (Auto) Eos # (Auto) Baso # (Auto) Abs Immat Gran (auto) Absolute Neuts (auto) Absolute Nucleated RBC Nucleated RBC % (auto) Hold Purple Top SEE NOTE PT INR APTT aPTT Heparin Protocol 100.2 H VBG pH VBG pCO2 VBG pO2 VBG HCO3 VBG O2 Saturation VBG Base Excess Sodium 144 Potassium 3.7 Chloride 112 H Carbon Dioxide 23 Anion Gap 13 BUN 40 H Creatinine 1.61 H Estim Creat Clear Calc 24.1 Estimated GFR 30 Random Glucose 109 Lactic Acid F/U @ 2Hr Lactic Acid F/U @ 4Hr 2.3 H* Calcium 8.6 D Phosphorus 2.8 Magnesium 2.2 Total Bilirubin 0.7 AST 213 H ALT 37 H Alkaline Phosphatase 69 Total Creatine Kinase Troponin I High Sens > 18413.0 H* Total Protein 5.1 L Albumin 3.1 L 03/04/24 03/04/24 03/04/24 03:08 06:07 06:07 WBC 11.2 H 11.1 H RBC 3.04 L Hgb Hct MCV MCH MCHC RDW Plt Count MPV Immature Gran % (Auto) Neut % (Auto) Lymph % (Auto) [place] % (Auto) Eos % (Auto) Baso % (Auto) Lymph # (Auto) [place] # (Auto) Eos # (Auto) Baso # (Auto) Abs Immat Gran (auto) Absolute Neuts (auto) Absolute Nucleated RBC Nucleated RBC % (auto) Hold Purple Top PT INR APTT aPTT Heparin Protocol 58.4 D VBG pH VBG pCO2 VBG pO2 VBG HCO3 VBG O2 Saturation VBG Base Excess Sodium Potassium Chloride Carbon Dioxide Anion Gap BUN Creatinine Estim Creat Clear Calc Estimated GFR Random Glucose Lactic Acid F/U @ 2Hr Lactic Acid F/U @ 4Hr Calcium Phosphorus Magnesium Total Bilirubin AST ALT Alkaline Phosphatase Total Creatine Kinase Troponin I High Sens Total Protein Albumin 03/04/24 03/04/24 03/04/24 06:07 06:07 06:07 WBC RBC 3.06 L Hgb 9.7 L 9.8 L Hct 29.3 L 29.9 L MCV 96.4 MCH MCHC RDW Plt Count MPV Immature Gran % (Auto) Neut % (Auto) Lymph % (Auto) [place] % (Auto) Eos % (Auto) Baso % (Auto) Lymph # (Auto) [place] # (Auto) Eos # (Auto) Baso # (Auto) Abs Immat Gran (auto) Absolute Neuts (auto) Absolute Nucleated RBC Nucleated RBC % (auto) Hold Purple Top PT INR APTT aPTT Heparin Protocol VBG pH VBG pCO2 VBG pO2 VBG HCO3 VBG O2 Saturation VBG Base Excess Sodium Potassium Chloride Carbon Dioxide Anion Gap BUN Creatinine Estim Creat Clear Calc Estimated GFR Random Glucose Lactic Acid F/U @ 2Hr Lactic Acid F/U @ 4Hr Calcium Phosphorus Magnesium Total Bilirubin AST ALT Alkaline Phosphatase Total Creatine Kinase Troponin I High Sens Total Protein Albumin 03/04/24 03/04/24 03/04/24 06:07 06:07 06:07 WBC RBC Hgb Hct MCV 97.7 MCH 31.9 32.0 MCHC 33.1 32.8 RDW 14.4 Plt Count MPV Immature Gran % (Auto) Neut % (Auto) Lymph % (Auto) [place] % (Auto) Eos % (Auto) Baso % (Auto) Lymph # (Auto) [place] # (Auto) Eos # (Auto) Baso # (Auto) Abs Immat Gran (auto) Absolute Neuts (auto) Absolute Nucleated RBC Nucleated RBC % (auto) Hold Purple Top PT INR APTT aPTT Heparin Protocol VBG pH VBG pCO2 VBG pO2 VBG HCO3 VBG O2 Saturation VBG Base Excess Sodium Potassium Chloride Carbon Dioxide Anion Gap BUN Creatinine Estim Creat Clear Calc Estimated GFR Random Glucose Lactic Acid F/U @ 2Hr Lactic Acid F/U @ 4Hr Calcium Phosphorus Magnesium Total Bilirubin AST ALT Alkaline Phosphatase Total Creatine Kinase Troponin I High Sens Total Protein Albumin 03/04/24 03/04/24 03/04/24 06:07 06:07 06:07 WBC RBC Hgb Hct MCV MCH MCHC RDW 14.5 Plt Count 108 L 112 L MPV 11.3 11.6 Immature Gran % (Auto) 0.2 Neut % (Auto) 76.8 H Lymph % (Auto) 11.9 L [place] % (Auto) 5.3 Eos % (Auto) 5.4 H Baso % (Auto) 0.4 Lymph # (Auto) 1.3 [place] # (Auto) 0.6 Eos # (Auto) 0.6 H Baso # (Auto) 0.1 Abs Immat Gran (auto) 0.02 Absolute Neuts (auto) 8.6 H Absolute Nucleated RBC 0.000 Nucleated RBC % (auto) Hold Purple Top PT INR APTT aPTT Heparin Protocol VBG pH VBG pCO2 VBG pO2 VBG HCO3 VBG O2 Saturation VBG Base Excess Sodium Potassium Chloride Carbon Dioxide Anion Gap BUN Creatinine Estim Creat Clear Calc Estimated GFR Random Glucose Lactic Acid F/U @ 2Hr Lactic Acid F/U @ 4Hr Calcium Phosphorus Magnesium Total Bilirubin AST ALT Alkaline Phosphatase Total Creatine Kinase Troponin I High Sens Total Protein Albumin 03/04/24 03/04/24 03/04/24 06:07 06:07 06:14 WBC RBC Hgb Hct MCV MCH MCHC RDW Plt Count MPV Immature Gran % (Auto) Neut % (Auto) Lymph % (Auto) [place] % (Auto) Eos % (Auto) Baso % (Auto) Lymph # (Auto) [place] # (Auto) Eos # (Auto) Baso # (Auto) Abs Immat Gran (auto) Absolute Neuts (auto) Absolute Nucleated RBC 0.000 Nucleated RBC % (auto) 0.0 0.0 Hold Purple Top PT 13.3 INR 1.1 APTT aPTT Heparin Protocol VBG pH 7.48 H VBG pCO2 33 VBG pO2 110 VBG HCO3 25 VBG O2 Saturation 99.0 VBG Base Excess 2.0 Sodium 143 Potassium 3.6 Chloride 111 H Carbon Dioxide 23 Anion Gap 13 BUN 39 H Creatinine 1.32 Estim Creat Clear Calc 30.1 Estimated GFR 38 Random Glucose 99 Lactic Acid F/U @ 2Hr Lactic Acid F/U @ 4Hr Calcium 8.3 L Phosphorus 2.5 L Magnesium 2.1 Total Bilirubin 0.7 AST 199 H ALT 39 H Alkaline Phosphatase 70 Total Creatine Kinase Troponin I High Sens 23197.3 H* Total Protein 5.0 L Albumin 2.9 L 03/04/24 09:02 WBC RBC Hgb Hct MCV MCH MCHC RDW Plt Count MPV Immature Gran % (Auto) Neut % (Auto) Lymph % (Auto) [place] % (Auto) Eos % (Auto) Baso % (Auto) Lymph # (Auto) [place] # (Auto) Eos # (Auto) Baso # (Auto) Abs Immat Gran (auto) Absolute Neuts (auto) Absolute Nucleated RBC Nucleated RBC % (auto) Hold Purple Top PT INR APTT aPTT Heparin Protocol 56.2 VBG pH VBG pCO2 VBG pO2 VBG HCO3 VBG O2 Saturation VBG Base Excess Sodium Potassium Chloride Carbon Dioxide Anion Gap BUN Creatinine Estim Creat Clear Calc Estimated GFR Random Glucose Lactic Acid F/U @ 2Hr Lactic Acid F/U @ 4Hr Calcium Phosphorus Magnesium Total Bilirubin AST ALT Alkaline Phosphatase Total Creatine Kinase Troponin I High Sens Total Protein Albumin Microbiology Microbiology Results: Microbiology 03/03/24 Unknown Urine Catheterized - Straight Catheter Urine Culture - Preliminary No growth to date. Progress Note: A&P Assessment and plan (1) Non-ST elevation [place] (NSTEMI): Status: Acute (2) Acute UTI: Status: Acute (3) BEL (acute kidney injury): Status: Acute Plan Assessment: 88-year-old lady admitted with septic versus cardiogenic shock requiring pressor support. Plan: Neuro: No acute issues. Cardiac: Shock, septic versus cardiogenic, improving, continue to titrate off pressor support as tolerated. NSTEMI with wall motion abnormalities. Cardiology service care appreciated. Continue medical management with aspirin, Plavix, heparin drip. Pulmonary: No acute issues. Renal: Acute kidney injury, improving. Non oliguric. Continue to monitor renal indices and urine output. Endo: No acute issues. GI: No acute issues. ID: Likely underlying UTI. Continue broad-spectrum antibiotics. Cultures are pending. Heme/Onc: No acute issues. Psych: No acute issues. Miscellaneous: No acute issues. Prophylaxis: Heparin drip Diet: Regular Critical care time spent: 60 minutes Quality Stroke Does the patient have a stroke diagnosis?: No VTE Prior VTE?: No VTE Risk Level:: Medical - moderate - high VTE Device Contraindication: N/A - Device Ordered VTE Drug Contraindication: N/A - Med Ordered Critical Care Time Critical Care Time (minutes): 60
[2024-03-04] MEDS: Aspirin 81 MG TAB.CHEW PO (12:27)
[2024-03-04 15:22] LABS: MANUAL DIFF FLAG NO
[2024-03-04 15:27] LABS: Basophils Percent Auto 0.3 % (0-2); Eosinophils Absolute Auto 0.5 X10*3/uL (0.0-0.4); Eosinophils Percent Auto 6.1 % (0-4); Hematocrit 28.4 % (37.0-47.0); Hemoglobin 9.6 g/dl (12.0-16.0); Imm Gran Abs Auto 0.04 X10*3/uL (0.00-0.03); Imm Gran Pct Auto 0.5 % (0.0-0.4); Lymphocytes Absolute Auto 1.1 X10*3/uL (1.2-4.9); Lymphocytes Percent Auto 12.2 % (20-40); Mean Corpuscular HGB Conc 33.8 g/dl (31.0-35.0); Mean Corpuscular Hemoglobin 32.5 pg (27.0-33.0); Mean Corpuscular Volume 96.3 fL (80.0-98.0); Mean Platelet Volume 11.3 fL (9.4-12.3); Monocytes Absolute Auto 0.5 X10*3/uL (0.1-1.2); Monocytes Percent Auto 5.9 % (2-11); Neutrophils Absolute Auto 6.5 x10*3/uL (2.0-8.3); Platelet Count 105 X10*3/uL (160-400); Red Blood Count 2.95 X10*6/uL (4.20-5.50); Red Cell Distribution Width 14.3 % (11.0-16.0); White Blood Count 8.6 X10*3/uL (4.8-10.8)
[2024-03-04] MEDS: Heparin Sodium,Porcine/1/2NS 25,000 UNIT/250 ML IV.SOLN 6.58 UNIT IVCONT (15:31)
[2024-03-04] MEDS: Gabapentin 300 MG CAPSULE PO (18:27)
[2024-03-04 20:34] LABS: MANUAL DIFF FLAG NO
[2024-03-04 20:41] LABS: Basophils Percent Auto 0.1 % (0-2); Eosinophils Absolute Auto 0.5 X10*3/uL (0.0-0.4); Eosinophils Percent Auto 5.2 % (0-4); Hematocrit 26.2 % (37.0-47.0); Imm Gran Abs Auto 0.03 X10*3/uL (0.00-0.03); Imm Gran Pct Auto 0.3 % (0.0-0.4); Lymphocytes Absolute Auto 1.5 X10*3/uL (1.2-4.9); Mean Corpuscular HGB Conc 34.4 g/dl (31.0-35.0); Mean Corpuscular Hemoglobin 32.4 pg (27.0-33.0); Mean Corpuscular Volume 94.2 fL (80.0-98.0); Mean Platelet Volume 11.7 fL (9.4-12.3); Monocytes Absolute Auto 0.5 X10*3/uL (0.1-1.2); Monocytes Percent Auto 5.8 % (2-11); Neutrophils Absolute Auto 6.7 x10*3/uL (2.0-8.3); Neutrophils Percent Auto 72.6 % (45-73); Red Blood Count 2.78 X10*6/uL (4.20-5.50); Red Cell Distribution Width 14.4 % (11.0-16.0); White Blood Count 9.2 X10*3/uL (4.8-10.8)
[2024-03-04 21:11] LABS: Platelet Count 88 X10*3/uL (160-400)
[2024-03-05] VITALS (21 sets, daily range): BP systolic 117–161; BP diastolic 45–78; PULSE 52–81; RESP 14–67; TEMP 36.2–37.9; O2SAT 90–99; BMI 28.1
[2024-03-05] MEDS: Albumin Human 25 % 100 ML IV (03:13)
[2024-03-05] MEDS: Piperacillin Sodium/Tazobactam 3.375 GM in 0.9 % Sodium Chloride 50 ML IV ×4 (04:12→21:38)
[2024-03-05 06:34] LABS: MANUAL DIFF FLAG NO
[2024-03-05 07:30] LABS: Basophils Percent Auto 0.4 % (0-2); Mean Platelet Volume 13.2 fL (9.4-12.3); SCAN SMEAR FLAG 1
[2024-03-05 07:32] LABS: Eosinophils Absolute Auto 0.4 X10*3/uL (0.0-0.4); Eosinophils Percent Auto 7.1 % (0-4); Hematocrit 22.5 % (37.0-47.0); Hemoglobin 7.6 g/dl (12.0-16.0); Imm Gran Abs Auto 0.03 X10*3/uL (0.00-0.03); Imm Gran Pct Auto 0.6 % (0.0-0.4); Lymphocytes Percent Auto 19.8 % (20-40); Mean Corpuscular HGB Conc 33.8 g/dl (31.0-35.0); Mean Corpuscular Hemoglobin 32.8 pg (27.0-33.0); Monocytes Absolute Auto 0.3 X10*3/uL (0.1-1.2); Monocytes Percent Auto 5.9 % (2-11); Neutrophils Absolute Auto 3.5 x10*3/uL (2.0-8.3); Neutrophils Percent Auto 66.2 % (45-73); Red Blood Count 2.32 X10*6/uL (4.20-5.50); Red Cell Distribution Width 14.5 % (11.0-16.0); White Blood Count 5.2 X10*3/uL (4.8-10.8)
[2024-03-05 07:34] LABS: PLT ABN DIST 1; Platelet Count 84 X10*3/uL (160-400)
[2024-03-05 07:45] LABS: PTT Heparin Drip 49.3 SEC (53-77.9)
[2024-03-05] MEDS: Heparin Sodium,Porcine 5,000 UNIT/ML VIAL 2900 UNIT IVPUSH (07:55)
[2024-03-05 08:03] LABS: Albumin Level 3.9 g/dL (3.5-5.0); Anion Gap 11 (12-20); Blood Urea Nitrogen 32 mg/dL (9-16); Calcium 8.9 mg/dL (8.4-10.2); Carbon Dioxide 24 mmol/L (22-29); Chloride 115 mmol/L (96-108); Creatinine Clr Calc Pharmacy 41.4; Estimated Glomerular Filt Rate 55; Glucose Random 117 mg/dL (60-115); Magnesium 2.3 mg/dL (1.6-2.6); Phosphorus 2.4 mg/dL (2.7-4.5); Potassium 3.7 mmol/L (3.3-5.1); Sodium 146 mmol/L (135-145)
[2024-03-05] MEDS: Gabapentin 300 MG CAPSULE PO ×3 (08:51→21:38)
[2024-03-05] MEDS: Aspirin 81 MG TAB.CHEW PO (08:51)
[2024-03-05] MEDS: Clopidogrel Bisulfate 75 MG TABLET PO (08:51)
--- NOTE | 2024-03-05 09:59 | PM.EVENT ---
Event Note Date of Service: 03/05/24 Event Note: 88 year old women admitted with NSTEMI admitted to ICU for hypotension with poor resonse to IV fluids. Found to have troponins of 60,000, echo showed WMA, started on heparin drip and tx to ICU. Patient on heparin 48hrs, blood pressure stable, tx out of ICU. Discussed with ICU attending Hyppotension pressors in ICU NSTEMI on asa, plavix and heparin drip cardiology following BRBPR likely from above follow HH Pos UA neg cx Time Spent With Patient Time: Total time managing care of this patient today ____ minutes.
--- NOTE | 2024-03-05 10:18 | P.PNCC_ITS ---
Subjective Subjective Date of Service: 03/05/24 Interval History: 88-year-old lady with underlying history of diastolic congestive heart failure, SEBASTIAN on CPAP, GERD, recent to [facility] for urinary tract infection being admitted today after she presented complain of dizziness and lightheadedness. On ER evaluation patient hypotensive with poor response to initial IV fluid resuscitation requiring pressor support. Laboratory studies also significant for elevated troponin at 60,000. Cardiology consulted and evaluated patient in the emergency room with echocardiogram showing wall motion abnormalities. Patient started on medical management as heparin drip, Plavix, and aspirin. Also, empiric antibiotics and admitted to the intensive care unit. Overnight with drop hemoglobin to 7.6 and small amount of bright red blood per rectum. Titrated off pressors. Critical Care Time (minutes): 0 Physical Exam 2 Vital Signs: Vital Signs: Last Vital Signs Temp 98.8 F 03/05/24 09:00 Pulse 62 03/05/24 09:46 Resp 18 03/05/24 09:00 BP 133/61 03/05/24 09:46 Pulse Ox 96 03/05/24 09:00 O2 Del Method Room Air 03/05/24 09:00 BMI result Body Mass Index 28.1 Const: General: no acute distress, alert and awake Eyes: Sclerae: sclerae normal EOM: EOMs intact bilaterally Neck: Neck: Yes no lymphadenopathy, Yes trachea midline and Yes supple Resp: Effort & Inspection: normal respiratory effort and no respiratory distress Auscultation: clear to auscultation bilaterally Cardio: Rate: regular rate Rhythm: regular rhythm Heart sounds: no gallops, no murmurs and no rubs GI: Palpation (GI): Soft to palpation and Other GI palpation findings present ( Nontender) Auscultation: normal bowel sounds Extrem: General: Yes no pedal edema, No clubbing and No cyanosis Objective Data Labs 03/05/24 05:58 03/05/24 07:32 Labs: Laboratory Results - last 24 hr 03/04/24 03/04/24 03/05/24 15:16 20:29 05:58 WBC 8.6 9.2 5.2 RBC 2.95 L 2.78 L 2.32 L Hgb 9.6 L 9.0 L 7.6 L Hct 28.4 L 26.2 L 22.5 L MCV 96.3 94.2 97.0 MCH 32.5 32.4 32.8 MCHC 33.8 34.4 33.8 RDW 14.3 14.4 14.5 Plt Count 105 L 88 L 84 L MPV 11.3 11.7 13.2 H Immature Gran % (Auto) 0.5 H 0.3 0.6 H Neut % (Auto) 75.0 H 72.6 66.2 Lymph % (Auto) 12.2 L 16.0 L 19.8 L [place] % (Auto) 5.9 5.8 5.9 Eos % (Auto) 6.1 H 5.2 H 7.1 H Baso % (Auto) 0.3 0.1 0.4 Lymph # (Auto) 1.1 L 1.5 1.0 L [place] # (Auto) 0.5 0.5 0.3 Eos # (Auto) 0.5 H 0.5 H 0.4 Baso # (Auto) 0.0 0.0 0.0 Abs Immat Gran (auto) 0.04 H 0.03 0.03 Absolute Neuts (auto) 6.5 6.7 3.5 Absolute Nucleated RBC 0.000 0.000 0.000 Nucleated RBC % (auto) 0.0 0.0 0.0 aPTT Heparin Protocol Sodium Potassium Chloride Carbon Dioxide Anion Gap BUN Creatinine Estim Creat Clear Calc Estimated GFR Random Glucose Calcium Phosphorus Magnesium Troponin I High Sens Albumin 03/05/24 07:32 WBC RBC Hgb Hct MCV MCH MCHC RDW Plt Count MPV Immature Gran % (Auto) Neut % (Auto) Lymph % (Auto) [place] % (Auto) Eos % (Auto) Baso % (Auto) Lymph # (Auto) [place] # (Auto) Eos # (Auto) Baso # (Auto) Abs Immat Gran (auto) Absolute Neuts (auto) Absolute Nucleated RBC Nucleated RBC % (auto) aPTT Heparin Protocol 49.3 L Sodium 146 H Potassium 3.7 Chloride 115 H Carbon Dioxide 24 Anion Gap 11 L BUN 32 H Creatinine 0.96 Estim Creat Clear Calc 41.4 Estimated GFR 55 Random Glucose 117 H Calcium 8.9 D Phosphorus 2.4 L Magnesium 2.3 Troponin I High Sens 02365.4 H* D Albumin 3.9 Microbiology Microbiology Results: Microbiology 03/03/24 10:08 Blood - Venous Blood Culture - Preliminary No growth after 24 hours. 03/03/24 10:08 Blood - Venous Blood Culture - Preliminary No growth after 24 hours. 03/03/24 Unknown Urine Catheterized - Straight Catheter Urine Culture - Preliminary No growth to date. Progress Note: A&P Assessment and plan (1) Non-ST elevation [place] (NSTEMI): Status: Acute (2) Acute blood loss anemia: Status: Acute (3) GI bleed: Status: Acute (4) BEL (acute kidney injury): Status: Acute (5) Acute UTI: Status: Acute Plan Assessment: 88-year-old lady admitted with septic versus cardiogenic shock requiring pressor support. Plan: Neuro: No acute issues. Cardiac: Shock, septic versus cardiogenic, resolved, titrated off pressor support. NSTEMI with wall motion abnormalities. Cardiology service care appreciated. Continue medical management with aspirin, Plavix, heparin drip. Pulmonary: No acute issues. Renal: Acute kidney injury, improving. Non oliguric. Continue to monitor renal indices and urine output. Endo: No acute issues. GI: No acute issues. ID: Likely underlying UTI. Continue broad-spectrum antibiotics. Cultures are pending. Heme/Onc: Acute blood loss anemia likely secondary to small lead as patient did have an episode of bright red blood per rectum, secondary to antiplatelet/anticoagulation. Continue to monitor hemoglobin level. Psych: No acute issues. Miscellaneous: No acute issues. Prophylaxis: Heparin drip Diet: Regular Critical care time spent: 60 minutes Quality Stroke Does the patient have a stroke diagnosis?: No VTE Prior VTE?: No VTE Risk Level:: Medical - moderate - high VTE Device Contraindication: N/A - Device Ordered VTE Drug Contraindication: N/A - Med Ordered
[2024-03-05 12:02] LABS: PTT Heparin Drip 105.3 SEC (53-77.9)
--- NOTE | 2024-03-05 12:35 | PM.PNCARD ---
Subjective Subjective Date of Service: 03/05/24 Interval history: Seen examined bedside. She is saying she is feeling uncomfortable and looked agitated. Denying chest pain or shortness of breath. Hemoglobin has dropped on heparin drip and she had 1 episode of bright red blood per rectum. Physical Exam Vital Signs: Last Vital Signs Temp 98.8 F 03/05/24 12:00 Pulse 68 03/05/24 12:00 Resp 27 H 03/05/24 12:00 BP 157/58 H 03/05/24 12:00 Pulse Ox 96 03/05/24 12:00 O2 Del Method Room Air 03/05/24 12:00 BMI result Body Mass Index 28.1 GENERAL APPEARANCE: Uneasy and agitated. SKIN: no suspicious lesions, warm and dry. HEART: Systolic murmur over the precordium, regular rate and rhythm. Holosystolic murmur apex. LUNGS: clear to auscultation anteriorly. ABDOMEN: soft, nontender. EXTREMITIES: no edema. PERIPHERAL PULSES: equal. NEUROLOGIC: Alert and awake. Nonfocal. Objective Labs and Meds 03/05/24 05:58 03/05/24 07:32 Lab results: Laboratory Results - last 24 hr 03/04/24 03/04/24 03/05/24 15:16 20:29 05:58 WBC 8.6 9.2 5.2 RBC 2.95 L 2.78 L 2.32 L Hgb 9.6 L 9.0 L 7.6 L Hct 28.4 L 26.2 L 22.5 L MCV 96.3 94.2 97.0 MCH 32.5 32.4 32.8 MCHC 33.8 34.4 33.8 RDW 14.3 14.4 14.5 Plt Count 105 L 88 L 84 L MPV 11.3 11.7 13.2 H Immature Gran % (Auto) 0.5 H 0.3 0.6 H Neut % (Auto) 75.0 H 72.6 66.2 Lymph % (Auto) 12.2 L 16.0 L 19.8 L [place] % (Auto) 5.9 5.8 5.9 Eos % (Auto) 6.1 H 5.2 H 7.1 H Baso % (Auto) 0.3 0.1 0.4 Lymph # (Auto) 1.1 L 1.5 1.0 L [place] # (Auto) 0.5 0.5 0.3 Eos # (Auto) 0.5 H 0.5 H 0.4 Baso # (Auto) 0.0 0.0 0.0 Abs Immat Gran (auto) 0.04 H 0.03 0.03 Absolute Neuts (auto) 6.5 6.7 3.5 Absolute Nucleated RBC 0.000 0.000 0.000 Nucleated RBC % (auto) 0.0 0.0 0.0 Hold Purple Top aPTT Heparin Protocol Sodium Potassium Chloride Carbon Dioxide Anion Gap BUN Creatinine Estim Creat Clear Calc Estimated GFR Random Glucose Calcium Phosphorus Magnesium Troponin I High Sens Albumin 03/05/24 03/05/24 03/05/24 07:32 11:45 11:54 WBC RBC Hgb Hct MCV MCH MCHC RDW Plt Count MPV Immature Gran % (Auto) Neut % (Auto) Lymph % (Auto) [place] % (Auto) Eos % (Auto) Baso % (Auto) Lymph # (Auto) [place] # (Auto) Eos # (Auto) Baso # (Auto) Abs Immat Gran (auto) Absolute Neuts (auto) Absolute Nucleated RBC Nucleated RBC % (auto) Hold Purple Top SEE NOTE aPTT Heparin Protocol 49.3 L 105.3 H D Sodium 146 H Potassium 3.7 Chloride 115 H Carbon Dioxide 24 Anion Gap 11 L BUN 32 H Creatinine 0.96 Estim Creat Clear Calc 41.4 Estimated GFR 55 Random Glucose 117 H Calcium 8.9 D Phosphorus 2.4 L Magnesium 2.3 Troponin I High Sens 05156.4 H* D Albumin 3.9 Progress Note: A&P Assessment and plan (1) Sepsis: Status: Acute (2) Non-ST elevation [place] (NSTEMI): Status: Acute (3) Dynamic left ventricular outflow obstruction: Status: Acute Plan 88-year-old female presenting with shock. She has recent UTI and concern for sepsis and is on broad-spectrum antibiotics currently. 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 In the setting of sepsis her LVOT obstruction worsened with potentially played a role in her hypotension. She has done well with fluid resuscitation gently and phenylephrine drip. Phenylephrine drip is off now. She has moderate to severe mitral regurgitation by echocardiography but it is anteriorly directed and does not appears to be due to systolic anterior motion of the mitral valve because usually you will see posteriorly directed mitral regurgitation in that case. 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 Clinically not in heart failure. She had significant NSTEMI and I think this was an event in the LAD territory. She has been treated with heparin, aspirin Plavix. Unfortunately her hemoglobin has dropped and she had 1 episode of bright red blood per rectum. Repeat bowel movement did not show any bleeding. Her hemoglobin dropped to 7.6 from 9. I think we stopped the heparin drip and aspirin at this stage and leave her on Plavix monotherapy. I had a detailed discussion with patient's daughter and son at bedside. I have explained to them that Elvia has made some recovery in terms of infection and overall is not requiring phenylephrine. I have explained to them that with bleeding I am concerned about further instability given recent heart attack and worsening of LVOT obstruction so I am stopping the heparin. I will also stop the aspirin currently. Continue Plavix 75 mg daily. Give her 1 unit of blood with 20 mg IV Lasix. I think her treatment is conservative for NSTEMI and I have explained to the family that we should not pursue any angiography or invasive procedures. Thank you for allowing me to participate in the care of your patient. Please feel free to contact me if you have any questions. Time Spent With Patient Time: Total time managing care of this patient today ____ minutes. Progress Note: Quality Stroke Does the patient have a stroke diagnosis?: No Procedures Date of Service Date of Service: 03/05/24
--- NOTE | 2024-03-05 14:00 | PC.NURSE ---
Addendum entered by Elvia Galan RN 03/05/24 19:14: Patient voided at 1600 Original Note: Order for transfer to [facility] room 458, burkett catheter removed, patient due to void by 1930, education on post catheter voiding trial provided, patient tolerated procedure well
[2024-03-05] MEDS: Furosemide 20 MG/2 ML VIAL IVPUSH (15:46)
[2024-03-05] MEDS: Omeprazole 40 MG CAPSULE.DR PO (16:21)
[2024-03-05] MEDS: Acetaminophen 325 MG TABLET 650 MG PO (18:23)
[2024-03-05] MEDS: lamoTRIgine 100 MG TABLET PO (18:23)
[2024-03-05] MEDS: lamoTRIgine 25 MG TABLET 50 MG PO (18:23)
[2024-03-06] MEDS: Piperacillin Sodium/Tazobactam 3.375 GM in 0.9 % Sodium Chloride 50 ML IV ×4 (03:03→21:20)
[2024-03-06 03:52] VITALS: BP 170/78; PULSE 57; RESP 17; TEMP 36.7; O2SAT 98
[2024-03-06] MEDS: Omeprazole 40 MG CAPSULE.DR PO ×2 (05:50→15:30)
[2024-03-06 07:07] VITALS: BP 127/69; PULSE 62; RESP 17; TEMP 36.9; O2SAT 91
[2024-03-06 07:14] LABS: MANUAL DIFF FLAG NO
[2024-03-06 07:25] LABS: Basophils Percent Auto 0.5 % (0-2); Eosinophils Absolute Auto 0.5 X10*3/uL (0.0-0.4); Eosinophils Percent Auto 7.4 % (0-4); Hematocrit 30.7 % (37.0-47.0); Imm Gran Abs Auto 0.02 X10*3/uL (0.00-0.03); Imm Gran Pct Auto 0.3 % (0.0-0.4); Lymphocytes Absolute Auto 1.2 X10*3/uL (1.2-4.9); Lymphocytes Percent Auto 18.3 % (20-40); Mean Corpuscular HGB Conc 32.6 g/dl (31.0-35.0); Mean Corpuscular Hemoglobin 31.7 pg (27.0-33.0); Mean Corpuscular Volume 97.5 fL (80.0-98.0); Mean Platelet Volume 11.9 fL (9.4-12.3); Monocytes Absolute Auto 0.4 X10*3/uL (0.1-1.2); Monocytes Percent Auto 6.7 % (2-11); Neutrophils Absolute Auto 4.4 x10*3/uL (2.0-8.3); Neutrophils Percent Auto 66.8 % (45-73); Platelet Count 101 X10*3/uL (160-400); Red Blood Count 3.15 X10*6/uL (4.20-5.50); Red Cell Distribution Width 14.7 % (11.0-16.0); White Blood Count 6.6 X10*3/uL (4.8-10.8)
--- NOTE | 2024-03-06 07:31 | P.PNIM_ITS ---
Subjective Subjective Date of Service: 03/06/24 Review of Systems follow up NSTEMI Doing better, no pain Physical Exam 2 Vital Signs: Vital Signs: Last Vital Signs Temp 98.4 F 03/06/24 07:07 Pulse 62 03/06/24 07:07 Resp 17 03/06/24 07:07 BP 127/69 03/06/24 07:07 Pulse Ox 91 L 03/06/24 07:07 O2 Del Method Room Air 03/06/24 07:07 BMI result Body Mass Index 28.1 . Appearing in no acute distress head is normocephalic atraumatic eyes pupils are PERRLA sclera is anicteric mouth throat mucous membranes are intact and moist neck is supple no lymphadenopathy, no JVD noted lung sounds are clear to auscultation heart regular rate rhythm, clear S1, S2 positive bowel sounds, abdomen is soft, nontender neuro patient is alert x3, no focal deficits Objective Data Active Medications Acetaminophen (Acetaminophen 325 Mg Tablet) 650 mg PO Q4H PRN PRN Reason: Pain, Mild (Pain Scale 1-3) Last Admin: 03/05/24 18:23 Dose: 650 mg Documented By: KITTY Albuterol Sulfate (Albuterol Sulfate 90 Mcg 8 Gm Inhaler) 2 puff INHALE DAILY PRN PRN Reason: Shortness of Breath Atorvastatin Calcium (Atorvastatin Calcium 40 Mg Tablet) 40 mg PO DAILY [facility] Clopidogrel Bisulfate (Clopidogrel Bisulfate 75 Mg Tablet) 75 mg PO DAILY [facility] Last Admin: 03/05/24 08:51 Dose: 75 mg Documented By: KITTY Gabapentin (Gabapentin 300 Mg Capsule) 300 mg PO TID [facility] Last Admin: 03/05/24 21:38 Dose: 300 mg Documented By: DANNY Piperacillin Sod/Tazobactam (Sod 3.375 gm/ Sodium Chloride) 50 mls @ 100 mls/hr IV Q6H [facility] Last Infusion: 03/06/24 03:37 Dose: Infused Documented By: DANNY Lamotrigine (Lamotrigine 25 Mg Tablet) 50 mg PO BID@0900,1800 [facility] Last Admin: 03/05/24 18:23 Dose: 50 mg Documented By: KITTY Lamotrigine (Lamotrigine 100 Mg Tablet) 100 mg PO BID@0900,1800 [facility] Last Admin: 03/05/24 18:23 Dose: 100 mg Documented By: KITTY Omeprazole (Omeprazole 40 Mg Capsule.Dr) 40 mg PO BID@9189,5949 [facility] Last Admin: 03/06/24 05:50 Dose: 40 mg Documented By: DANNY Labs 03/06/24 06:53 03/06/24 06:53 Labs: Laboratory Results - last 24 hr 03/05/24 03/05/24 03/05/24 05:58 07:32 11:45 MCV 97.0 MCH 32.8 MCHC 33.8 RDW 14.5 Plt Count 84 L MPV 13.2 H Immature Gran % (Auto) 0.6 H Neut % (Auto) 66.2 Lymph % (Auto) 19.8 L [place] % (Auto) 5.9 Eos % (Auto) 7.1 H Baso % (Auto) 0.4 Lymph # (Auto) 1.0 L [place] # (Auto) 0.3 Eos # (Auto) 0.4 Baso # (Auto) 0.0 Abs Immat Gran (auto) 0.03 Absolute Neuts (auto) 3.5 Absolute Nucleated RBC 0.000 Nucleated RBC % (auto) 0.0 Hold Purple Top aPTT Heparin Protocol 49.3 L 105.3 H D Anion Gap 11 L Estim Creat Clear Calc 41.4 Estimated GFR 55 Random Glucose 117 H Calcium 8.9 D Phosphorus 2.4 L Magnesium 2.3 Troponin I High Sens 63253.4 H* D Albumin 3.9 Blood Type Antibody Screen Crossmatch 03/05/24 03/05/24 03/06/24 11:54 12:49 06:53 MCV 97.5 MCH 31.7 MCHC 32.6 RDW 14.7 Plt Count 101 L MPV 11.9 Immature Gran % (Auto) 0.3 Neut % (Auto) 66.8 Lymph % (Auto) 18.3 L [place] % (Auto) 6.7 Eos % (Auto) 7.4 H Baso % (Auto) 0.5 Lymph # (Auto) 1.2 [place] # (Auto) 0.4 Eos # (Auto) 0.5 H Baso # (Auto) 0.0 Abs Immat Gran (auto) 0.02 Absolute Neuts (auto) 4.4 Absolute Nucleated RBC 0.000 Nucleated RBC % (auto) 0.0 Hold Purple Top SEE NOTE aPTT Heparin Protocol Anion Gap Estim Creat Clear Calc Estimated GFR Random Glucose Calcium Phosphorus Magnesium Troponin I High Sens Albumin Blood Type B Negative Antibody Screen NEGATIVE Crossmatch See Detail Microbiology Microbiology Results: Microbiology 03/03/24 10:08 Blood Culture - Preliminary Blood - Venous No growth after 48 hours. 03/03/24 10:08 Blood Culture - Preliminary Blood - Venous No growth after 48 hours. 03/03/24 Unknown Urine Culture - Final Urine Catheterized - Straight Catheter No growth. Assessment and Plan (1) GI bleed: Status: Acute (2) Non-ST elevation [place] (NSTEMI): Status: Acute Plan 88 year old women admitted with NSTEMI admitted to ICU for hypotension with poor response to IV fluids. Found to have troponins of 60,000, echo showed WMA, started on heparin drip and tx to ICU. Patient on heparin 48hrs, blood pressure stable, tx out of ICU. Discussed with ICU attending Hypotension Resolved admitted to ICU initially for pressor support NSTEMI Initial troponin greater than 60,000 completed 48hrs of IV heparin cardiology following>stop IV heparin and asa due to anemia, start Metoprolol 12.5mg BID Echo pending conservative management Physical therapy consultation BRBPR likely from above s/p 1 unit PRBC with good response stable HH at this time GI consult pending PPI Pos UA neg cx Asthma Continue inhalers as needed Mental health Continue home medications Peripheral neuropathy Continue gabapentin DVT prophylaxis with pneumatic compression boots Full code Attending Dr. Yip Quality Stroke Does the patient have a stroke diagnosis?: No VTE Prior VTE?: No VTE Risk Level:: Medical - moderate - high VTE Device Contraindication: N/A - Device Ordered VTE Drug Contraindication: N/A - Med Ordered
[2024-03-06 07:45] LABS: Albumin Level 4.2 g/dL (3.5-5.0); Anion Gap 12 (12-20); Blood Urea Nitrogen 25 mg/dL (9-16); Calcium 9.9 mg/dL (8.4-10.2); Carbon Dioxide 25 mmol/L (22-29); Chloride 111 mmol/L (96-108); Creatinine Clr Calc Pharmacy 41.8; Estimated Glomerular Filt Rate 56; Glucose Random 110 mg/dL (60-115); Magnesium 2.5 mg/dL (1.6-2.6); Phosphorus 2.4 mg/dL (2.7-4.5); Potassium 3.4 mmol/L (3.3-5.1); Sodium 145 mmol/L (135-145)
[2024-03-06] MEDS: Gabapentin 300 MG CAPSULE PO ×3 (08:47→21:17)
[2024-03-06] MEDS: lamoTRIgine 100 MG TABLET PO ×2 (08:48→17:35)
[2024-03-06] MEDS: Atorvastatin Calcium 40 MG TABLET PO (08:48)
[2024-03-06] MEDS: lamoTRIgine 25 MG TABLET 50 MG PO ×2 (08:48→17:34)
[2024-03-06] MEDS: Clopidogrel Bisulfate 75 MG TABLET PO (08:49)
--- NOTE | 2024-03-06 09:09 | MHC.CM.PN ---
CM met with Patient at bedside and addressed IMM with her verbally,per Patient's request (RN was removing IV, while we spoke);original was left with Patient and a copy has been placed on the chart. Patient lives in a house with her Daughter/HCP/Jayna, was scheduled to begin services with [facility](when she was re hospitalized after a heart attack), and uses a cane to assist with mobility. Patient may benefit from a PT Eval to assist with disposition. CM has initiated and will follow fort dc planning. PCP is Dr. Sibley and Daughter will transport if dc'd to home.
--- NOTE | 2024-03-06 11:17 | PM.PNCARD ---
Subjective Subjective Date of Service: 03/06/24 Principal diagnosis: Myocardial infarction, mitral regurgitation. Interval history: Patient having no cardiac symptoms. Large myocardial infarction with troponins of 60,000 with LAD territory infarction on echocardiogram with LVOT obstruction most likely related to anterior TX as well as hypotension. She also then subsequently developed GI bleed. Currently off aspirin and heparin. Blood pressure is stabilized with some variability. Denies any shortness of breath. Anxious to go home Review of Systems Constitutional: Reports weakness Eyes: Reports no additional eye complaints Cardiovascular: Reports no additional cardiovascular complaints Gastrointestinal: Reports no additional gastrointestinal complaints Reports weakness Physical Exam Vital Signs: Last Vital Signs Temp 98.4 F 03/06/24 07:07 Pulse 62 03/06/24 07:07 Resp 17 03/06/24 07:07 BP 127/69 03/06/24 07:07 Pulse Ox 91 L 03/06/24 07:07 O2 Del Method Room Air 03/06/24 07:07 BMI result Body Mass Index 28.1 Const General: cooperative, comfortable, alert, awake and tired appearing Nutritional Appearance: overweight Orientation/consciousness: patient oriented x3 Neck Neck: Yes trachea midline, Yes supple and Yes no JVD Resp Effort & Inspection: normal respiratory effort Auscultation: clear to auscultation bilaterally Cardio Jugular venous distension: no JVD Palpation: normal PMI Rate: regular rate Rhythm: regular rhythm Heart sounds: S1 normal heart sound present, S2 normal heart sound present, no click, no gallops and Murmur heart sound present systolic (No worsening with Valsalva) GI Auscultation: normal bowel sounds Skin General skin exam: no rashes or lesions noted and ecchymosis Neuro General: patient oriented x3 and no focal motor deficits Extrem General: Yes no clubbing, cyanosis or edema Objective Labs and Meds 03/06/24 06:53 03/06/24 06:53 Lab results: Laboratory Results - last 24 hr 03/05/24 03/05/24 03/05/24 11:45 11:54 12:49 WBC RBC Hgb Hct MCV MCH MCHC RDW Plt Count MPV Immature Gran % (Auto) Neut % (Auto) Lymph % (Auto) [place] % (Auto) Eos % (Auto) Baso % (Auto) Lymph # (Auto) [place] # (Auto) Eos # (Auto) Baso # (Auto) Abs Immat Gran (auto) Absolute Neuts (auto) Absolute Nucleated RBC Nucleated RBC % (auto) Hold Purple Top SEE NOTE aPTT Heparin Protocol 105.3 H D Sodium Potassium Chloride Carbon Dioxide Anion Gap BUN Creatinine Estim Creat Clear Calc Estimated GFR Random Glucose Calcium Phosphorus Magnesium Albumin Blood Type B Negative Antibody Screen NEGATIVE Crossmatch See Detail 03/06/24 06:53 WBC 6.6 RBC 3.15 L D Hgb 10.0 L D Hct 30.7 L D MCV 97.5 MCH 31.7 MCHC 32.6 RDW 14.7 Plt Count 101 L MPV 11.9 Immature Gran % (Auto) 0.3 Neut % (Auto) 66.8 Lymph % (Auto) 18.3 L [place] % (Auto) 6.7 Eos % (Auto) 7.4 H Baso % (Auto) 0.5 Lymph # (Auto) 1.2 [place] # (Auto) 0.4 Eos # (Auto) 0.5 H Baso # (Auto) 0.0 Abs Immat Gran (auto) 0.02 Absolute Neuts (auto) 4.4 Absolute Nucleated RBC 0.000 Nucleated RBC % (auto) 0.0 Hold Purple Top aPTT Heparin Protocol Sodium 145 Potassium 3.4 Chloride 111 H Carbon Dioxide 25 Anion Gap 12 BUN 25 H Creatinine 0.95 Estim Creat Clear Calc 41.8 Estimated GFR 56 Random Glucose 110 Calcium 9.9 D Phosphorus 2.4 L Magnesium 2.5 Albumin 4.2 Blood Type Antibody Screen Crossmatch Progress Note: A&P Assessment and plan (1) NSTEMI (non-ST elevated myocardial infarction): Status: Acute Plan NSTEMI with LAD territory myocardial infarction with LV systolic dysfunction with obstructive physiology on presentation due to sepsis as well as hypotension and acute myocardial infarction. This has resolved and clinically appears to have resolved. Blood pressure is stabilized. Given her recent large myocardial infarction in the LAD territory as well as hypertrophic obstructive physiology I think she will do well with negative chronotropic therapy with metoprolol. Would start on low-dose metoprolol 12.5 mg b.i.d.. Currently off aspirin due to recent GI bleed and anemia. Also off heparin. Also continue with high-intensity statin therapy. Discuss with her and her kids at bedside about management and agree with Dr. Street about conservative therapy given her multiple comorbidities including advanced age, recent sepsis with acute pyelonephritis, recent GI bleed with significant anemia present as well as acute kidney injury. They also understand agree. Would consider physical therapy for discharge planning. Will set up for outpatient follow-up. Will sign of the case. Thank you for allowing me to partake in her care Time Spent With Patient Time: Total time managing care of this patient today ____ minutes. Progress Note: Quality Stroke Does the patient have a stroke diagnosis?: No Procedures Date of Service Date of Service: 03/06/24
[2024-03-06 11:20] VITALS: BP 156/75; PULSE 70; RESP 17; TEMP 36.7; O2SAT 93
[2024-03-06] MEDS: Acetaminophen 325 MG TABLET 650 MG PO (11:47)
[2024-03-06] MEDS: Metoprolol Tartrate 12.5 MG HALFTAB PO (11:48)
[2024-03-06 15:13] VITALS: BP 129/61; PULSE 58; RESP 18; TEMP 36.2; O2SAT 95
[2024-03-06 19:39] VITALS: BP 136/67; PULSE 59; RESP 18; TEMP 36.2; O2SAT 97
[2024-03-06 23:51] VITALS: BP 178/87; PULSE 58; RESP 18; O2SAT 92
[2024-03-07] MEDS: Piperacillin Sodium/Tazobactam 3.375 GM in 0.9 % Sodium Chloride 50 ML IV (03:37)
[2024-03-07 04:00] VITALS: BP 169/74; PULSE 55; RESP 19; TEMP 36.5; O2SAT 98
[2024-03-07] MEDS: Omeprazole 40 MG CAPSULE.DR PO (06:01)
[2024-03-07 07:58] VITALS: BP 146/77; PULSE 60; RESP 18; TEMP 36.3; O2SAT 96
[2024-03-07] MEDS: Clopidogrel Bisulfate 75 MG TABLET PO (08:42)
[2024-03-07] MEDS: lamoTRIgine 100 MG TABLET PO (08:42)
[2024-03-07] MEDS: Gabapentin 300 MG CAPSULE PO (08:42)
[2024-03-07] MEDS: lamoTRIgine 25 MG TABLET 50 MG PO (08:42)
[2024-03-07] MEDS: Metoprolol Tartrate 12.5 MG HALFTAB PO (08:42)
[2024-03-07] MEDS: Atorvastatin Calcium 40 MG TABLET PO (08:42)
--- NOTE | 2024-03-07 08:53 | MHC.CM.PN ---
CM addressed IMM with Patient, at bedside.
--- NOTE | 2024-03-07 10:37 | W.MHC.F2F ---
Service Date Service Date: 03/07/24 Encounter Date of encounter: 03/07/24 Reasons for Services Signs and symptoms assessed: NSTEMI Reason for physical therapy: home safety and mobility Reason for occupational therapy: ADL training Homebound: Leaving the home is medically contraindicated at this time without the asist of a device and/or another person due th the listed conditions above and below. Reason homebound: poor balance / fall risk and weakness related to hospital stay Certification: Based on the above findings, I certify that this patient is confined to the home and needs intermittent fci care, physical therapy and/or speech therapy, or continues to need occupational therapy. The patient is under my care, and I have initiated the establishment of the plan of care. The patient will be followed by a physician who will periodically review the plan of care. Time Spent With Patient Time: Total time managing care of this patient today ____ minutes.
--- NOTE | 2024-03-07 10:38 | PM.DS ---
DS: Providers Provider Date of Service: 03/07/24 Date of admission: 03/03/24 11:51 Primary care physician: Janna Sibley MD Consults: 03/04/24 09:16 Consult to Cardiology Routine Consulting Provider: [facility] Reason for consultation: shock, NSTEMI DS: Diagnosis Discharge Diagnosis (1) GI bleed: Status: Acute (2) Non-ST elevation [place] (NSTEMI): Status: Acute DS: Summary Hospital Course Hospital Course: 88-year-old lady with underlying history of diastolic congestive heart failure, SEBASTIAN on CPAP, GERD, recent to [facility] for urinary tract infection being admitted today after she presented with complaints of dizziness and lightheadedness. On ER evaluation patient hypotensive with poor response to initial IV fluid resuscitation requiring pressor support. Laboratory studies also significant for elevated troponin at 60,000. Cardiology consulted and evaluated patient in the emergency room with echocardiogram showing wall motion abnormalities. Patient started on heparin drip and empiric antibiotics and admitted to the intensive care unit. 88-year-old woman initially treated for hypotension and admitted to ICU for pressor support. She was also found to have NSTEMI with troponin greater than 60,000. She was treated with 48 hours of IV heparin, aspirin and Plavix. Due to this she did have an episode of bright red blood per rectum and was given 1 unit of packed red blood cells with good response and elevation of her H&H. He did not require any further blood transfusions. In terms of the NSTEMI, Cardiology recommended to stopped the IV heparin and aspirin but continue Plavix and add metoprolol 12.5 mg twice daily. Cardiology recommended conservative management with no plan for cardiac catheterization at this time. She was seen evaluated by Physical therapy who recommended home with physical therapy and her daughter also requested occupational therapy as well. She did initially have a positive UA but a negative culture, she had a few days of antibiotics. Her daughter reported frequent urinary tract infections, she can follow up with Urology for further management of this. Plan is to discharge patient home and family is in agreement with this. Asthma. Continue home inhalers Mental health. Continue home medication Peripheral neuropathy. Continue gabapentin Time Attestation Discharge Coordination Time (in mins): 32 Quality: Safe Use of Opioids Does Pt have an Active Cancer Diagnosis on the Problem List?: No Quality: Stroke Does the patient have a stroke diagnosis?: No Physical Exam Vital Signs: Vital Signs: Last Vital Signs Temp 97.4 F 03/07/24 07:58 Pulse 60 03/07/24 07:58 Resp 18 03/07/24 07:58 BP 146/77 H 03/07/24 07:58 Pulse Ox 96 03/07/24 07:58 O2 Del Method Room Air 03/07/24 07:58 BMI result Body Mass Index 28.1 Appearing in no acute distress head is normocephalic atraumatic eyes pupils are PERRLA sclera is anicteric mouth throat mucous membranes are intact and moist neck is supple no lymphadenopathy, no JVD noted lung sounds are clear to auscultation heart regular rate rhythm, clear S1, S2 positive bowel sounds, abdomen is soft, nontender neuro patient is alert x3, no focal deficits DS: Data Data Completed and Pending Completed studies during hospitalization [Text1]: Procedures Assistance with Respiratory Ventilation, Less than 24 Consecutive Hours, Continuous Positive Airway Pressure (12/27/23) Transfusion of Nonautologous Red Blood Cells into Peripheral Vein, Percutaneous Approach (12/27/23) Labs on day of discharge: Preliminary micro results at discharge 03/03/24 10:08 Blood Culture - Preliminary Blood - Venous No growth after 48 hours. 03/03/24 10:08 Blood Culture - Preliminary Blood - Venous No growth after 48 hours. Discharge Plan Discharge Anticipated Discharge Date/Time: 03/07/24 10:42 Patient Disposition: Home Health Service Discharge Diagnosis: NSTEMI Hypotension Bright red blood per rectum Referrals: Kelby Martinez MD [Physician] - 1 Week Janna Sibley MD [Primary Care Provider] - 1 Week Discharge Medications: New clopidogrel 75 mg Tablet 75 mg PO DAILY Qty: 30 0RF omeprazole 40 mg Capsule,Delayed Release(Dr/Ec) 40 mg PO BID@0630,1630 Qty: 60 0RF metoprolol tartrate 25 mg tablet 12.5 mg PO BID Qty: 60 0RF Continued lamotrigine 25 mg tablet 50 mg PO BID@0900,1800 gabapentin 300 mg capsule 300 mg PO TID@0900,1300,1800 albuterol sulfate 90 mcg/actuation HFA aerosol inhaler 2 inh inhalation DAILY PRN (Reason: SOB) lamotrigine 100 mg tablet 100 mg PO BID@0900,1800 Gemtesa 75 mg tablet 75 mg PO DAILY PreserVision AREDS-2 250-90-40-1 mg Capsule 1 tab PO BID@0900,1800 calcium carbonate-vitamin D3 [Calcium 600 + D(3)] 600 mg-5 mcg (200 unit) Tablet 1 tab PO BID@0900,1800 magnesium citrate 100 mg Tablet 100 mg PO BID@0900,1800 atorvastatin 40 mg tablet 40 mg PO DAILY fluticasone propion-salmeterol 250-50 mcg/dose Blister With Device 2 inh INHALATION BID d-mannose 500 mg Capsule 500 mg PO DAILY furosemide 20 mg tablet 40 mg PO DAILY Discontinued omeprazole 20 mg capsule,delayed release(DR/EC) 20 mg PO BID@0900,1800 amoxicillin 875 mg tablet 875 mg PO BID Qty: 6 0RF Discharge Orders: Discharge Order (Routine); Ordered 03/07/24 Ordered By: Erin Rivas Diet: Advance to usual diet Activity on Discharge: As tolerated Stand Alone Forms: Patient Portal Discharge page Print Language: Chinese Care Plan Goals: Follow-up with urologist for frequent urinary tract infections You have been started on new medications including: Metoprolol 12.5 mg twice daily, omeprazole was changed to 40 mg twice a day, and Plavix 75 mg daily Health Concerns: NSTEMI Hypotension Bright red blood per rectum Plan of Treatment: Follow-up with primary care provider as needed Take all medications as prescribed Assessment: See discharge summary
--- NOTE | 2024-03-07 11:31 | MHC.CM.PN ---
Patient has been medically cleared for dc to home today, with services. Patient is active with [facility], who has been made aware of today's dc.
--- NOTE | 2024-03-19 10:38 | P.CDIM_ITS ---
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 Please review below and update the documentation accordingly. Consistency of a documented diagnosis within the medical that was not noted within the Discharge summ gerry, if agreed to: ICU H&P dated 03/03 - Septic shock, pressor support ICU Progress note 03/05 - Cardiac: Shock, septic vs. cardiogenic, resolved. Titrated off pressor suppo rt. Hypotensive and poor response to IV fluids BP 83/42. WBC 14.7 LA 3.2 Temp 98.8/100.2 HR71/57 BP 83/42 Continue broad spectrum antibiotics. Sepsis Systemic manifestations of infection, with 2 or more SIRS criteria which include: Fever > 100.4?F or hypothermia < 96.8?F Leukocytosis - WBC > 12,000 or leukopenia, WBC < 4,000, or > 10% bands Tachycardia- > 90 beats/minute Tachypnea- RR > 20 breaths/minute or PaCO2 < 32mmHg Source: Merck Manual 2013 Documentation should include the known or suspected organism, and the underlying infection, such as U TI or pneumonia Severe Sepsis Sepsis with associated acute organ dysfunction, such as renal or respiratory failure Documentation should indicate the association between the sepsis and the organ dysfunction Septic Shock Severe sepsis with associated with circulatory failure, evidenced by hypotension and hypoperfusion Based on the above information and the recognized standard for sepsis, could you please clarify if th is diagnoses is still accurate and reflective of the patient's condition to ensure quality of the medical record. Sepsis with septic shock resolved, possible, probable, suspected etc. After study the Sepsis has been ruled out Other (explain) Clinically unable to determine (explain) Thank you, Deborah Keenan, CCS, CDIS Use of terms such as suspected, likely, concern for, or probable (associated with a specific diagnosi s that is being evaluated, monitored, or treated as if it exists) are acceptable and can be coded in the inpatient se tting, when documented at the time of discharge. Please use your independent medical judgment in providing your response. THIS QUERY IS PART OF THE PERMANENT MEDICAL RECORD
== END 2024-03-07 12:32 | disposition home health service (06) | DRG 871 ==
LOC: HO.ED 11:33 → HO.EDOVER 12:01 → HO.ICU 12:13 → HO.IMC 03-05 13:01
PROVIDERS: Physician Assistant Medical; Admitting Provider Internal Medicine Pulmonary Disease; Emergency Provider Emergency Medicine; PCP Internal Medicine; Visit Provider Nurse Practitioner Acute Care
DX: A41.9 Sepsis, unspecified organism (principal); I21.4 Non-ST elevation (NSTEMI) myocardial infarction; R57.0 Cardiogenic shock; R65.21 Severe sepsis with septic shock; N17.9 Acute kidney failure, unspecified; I50.32 Chronic diastolic (congestive) heart failure; K62.5 Hemorrhage of anus and rectum; D62 Acute posthemorrhagic anemia; N10 Acute pyelonephritis; J45.909 Unspecified asthma, uncomplicated; G62.9 Polyneuropathy, unspecified; I34.0 Nonrheumatic mitral (valve) insufficiency; I44.7 Left bundle-branch block, unspecified; G47.33 Obstructive sleep apnea (adult) (pediatric); Z66 Do not resuscitate; Z87.440 Personal history of urinary (tract) infections; Z20.822 Contact with and (suspected) exposure to COVID-19; Z79.899 Other long term (current) drug therapy
CPT/HCPCS: 0241U; 36415; 70450; 71045; 74176; 80048; 80053; 80076; 81001; 82040; 82550; 82803; 82947; 83605; 83690; 83735; 83880; 84100; 84145; 84484; 85025; 85027; 85610; 85730; 86140; 86850; 86900; 86901; 86923; 87040; 87086; 87088; 87186; 93005; 93306; 96361; 96365; 96366; 96372; 97162; 99222; 99285; C1758; J0696; J1644; J1650; J1940; J2371; J2543; J3371; J7120; P9016; P9047

== ENCOUNTER → 2024-03-03 09:36 | Outpatient (BNV) | payer MEDICARE, OTHER, SELFPAY | PROVIDERS: Emergency Provider Emergency Medicine; PCP Internal Medicine; Visit Provider Internal Medicine Cardiovascular Disease | DX: I21.4 Non-ST elevation (NSTEMI) myocardial infarction (principal) | CPT/HCPCS: 93306; 99223; 99233 ==

== ENCOUNTER → 2024-03-03 11:51 | Outpatient (BNV) | payer MEDICARE, OTHER, SELFPAY | PROVIDERS: Admitting Provider Internal Medicine Pulmonary Disease; Emergency Provider Emergency Medicine; PCP Internal Medicine; Visit Provider Nurse Practitioner Acute Care | DX: K92.2 Gastrointestinal hemorrhage, unspecified (principal); I21.4 Non-ST elevation (NSTEMI) myocardial infarction | CPT/HCPCS: 99231; 99239; 99499; G0180 ==

== ENCOUNTER → 2024-03-03 11:51 | Outpatient (BNV) | payer MEDICARE, OTHER, SELFPAY | PROVIDERS: Admitting Provider Internal Medicine Pulmonary Disease; Emergency Provider Emergency Medicine; PCP Internal Medicine; Visit Provider Internal Medicine Pulmonary Disease | DX: I21.4 Non-ST elevation (NSTEMI) myocardial infarction (principal); N39.0 Urinary tract infection, site not specified; N17.9 Acute kidney failure, unspecified | CPT/HCPCS: 99231; 99291 ==

== ENCOUNTER 2024-04-06 09:57 | Outpatient (AMB) | payer MEDICARE, OTHER, SELFPAY ==
--- NOTE | 2024-04-06 10:00 | A.OFFVIS_ITS ---
Intake Visit Reasons: kidney stones/frequent UTI Intake Note: New Patient presents for initial visit for kidney stones and recurrent uti Urology Medications: gemtesa Blood Thinner: clopidogrel PVR: 0ml's Coating And Embossing Unit Operator Required: No Accompanied by: Daughter Allergies hydroxyzine Allergy (Verified 04/06/24 11:07) Hives imipramine Allergy (Verified 04/06/24 11:07) Hives Medication List - Last Reconciled 04/06/24 by SAMANTHA Maciel albuterol sulfate 90 mcg/actuation 2 inhalations inhalation DAILY PRN atorvastatin 40 mg PO DAILY calcium carbonate-vitamin D3 600 mg-5 mcg (200 unit) (Calcium 600 + D(3)) 1 tab PO BID@0900,1800 clopidogrel 75 mg PO DAILY d-mannose 500 mg PO DAILY fluticasone propion-salmeterol 250-50 mcg/dose 2 inhalations inhalation BID furosemide 40 mg PO DAILY gabapentin 300 mg PO TID@0900,1300,1800 lamotrigine 100 mg PO BID@0900,1800 lamotrigine 50 mg PO BID@0900,1800 magnesium citrate 100 mg PO BID@0900,1800 metoprolol tartrate 12.5 mg (1/2 x 25 mg) PO BID nitrofurantoin macrocrystal 100 mg PO BID 10 days omeprazole 40 mg PO BID@0630,1630 vit C,S-Uk-jbiff-lutein-zeaxan 250-90-40-1 mg (PreserVision AREDS-2) 1 tab PO BID@0900,1800 HPI Comments Details: Elvia is a very pleasant 88-year-old female patient of who was accompanied by her daughter at today's office visit. She has a past medical history of NSTEMI, chronic diastolic heart failure, dynamic left ventricular outflow obstruction, hyperlipidemia, hypertension, left bundle branch block, urge incontinence, SEBASTIAN on CPAP, fibromyalgia, chronic polyneuropathy, and melanoma, asthma. She presents to the office today as a new patient for recurrent urinary tract infections as well as staghorn calculi. In discussion with the patient and her daughter today she reports having recently been hospitalized at [facility] for urinary tract infection, sepsis, and WV. she reports a longstanding history of recurrent urinary tract infections over the last 1-2 years. She reports having followed up with a urologist prior to the pandemic for urge incontinence and has been on Gemtesa since. She re ports being on IV antibiotics and discharged home with p.o. antibiotics and has since completed antibiotic therapy. She discusses having followed up with her PCP 2 weeks ago status post her hospitalization at which time she was noted to have a urinary tract infection and was given more antibiotics however is unsure as to the name of the medication. In office urinalysis results reviewed with the patient today 2+ leukocytes positive nitrates 3+ proteinuria and 2+ microscopic hematuria. When asked she does continue to report feeling intermittent episodes of UTI like symptoms such as dysuria. She otherwise denies urinary urgency, urinary frequency, incontinence, nocturia, hematuria, foul smelling urine, changes to urinary stream, flank pain, fever, and or chills. Recent CT results reviewed with the patient and her daughter today 03/14 bilateral multiple renal calculi and right lateral mid renal cyst. Punctate calculi are seen in the upper pole of the mid right kidney large left posterior mid renal calculus measuring a proximally 1.9 cm in size.No caliectasis or dilated pelvis is seen.No dilated ureters are found. We discussed at length further treatment options to include near future ureteroscopy however patient with recent [place] therefore will need to await cardiology clearance. Discussed obtaining urine for microgen for further assessment evaluation. PVR 0 mL. We discussed at length potential causes for recurrent urinary tract infections as well as staghorn calculi. She becomes tearful throughout today's appointment discussing her frustration with her health. Urine culture 12/27/23: E coli resistant to Bactrim Urine culture 02/28/24: E coli and Enterococcus faexalis: Resistant to Bactrim and tetracycline [facility] Medical History Non-ST elevation [place] (NSTEMI) NSTEMI (non-ST elevated myocardial infarction) Chronic diastolic heart failure Dynamic left ventricular outflow obstruction Hyperlipidemia Hypertension Left bundle branch block Urge incontinence SEBASTIAN on CPAP Fibromyalgia Chronic polyneuropathy History of melanoma Asthma Diastolic dysfunction Social History Household Members: Family Housing: House Do you presently have visiting nurse or other home services: No Unable to assess alcohol history related to: Unable to respond and Unknown Alcohol intake: former Patient Tobacco Use Status: Never used Tobacco Advance Directives Date on File: 12/27/23 service: No Review of Systems Eyes Reports no additional complaints ENT Reports no additional complaints Card Reports as per HPI Resp Reports as per HPI GI Reports no additional complaints Reports as per HPI Musc Reports as per HPI Skin/Breast Reports as per HPI Neuro Reports no additional complaints Psych Reports no additional complaints Endo Reports no additional complaints Saleem/Lymph Reports no additional complaints Aller/Immun Reports no additional complaints Physical Exam Const General: cooperative, healthy appearing, comfortable, no acute distress, well developed, alert and awake Orientation/consciousness: patient oriented x3 Limitations: ambulation with cane HEENT Head: Yes normal to inspection, Yes normocephalic and Yes atraumatic Ears: hearing grossly normal bilaterally Eyes General: appearance normal, both eyes and all related structures Neck Neck: Yes normal visual inspection and Yes trachea midline Chest Chest palpation & inspection: normal inspection of the chest Resp Effort & Inspection: normal respiratory effort and able to speak in complete sentences Cardio Rate: regular rate GI Inspection: Yes normal to inspection General: Yes no CVA tenderness Back/Spine/Pelvis Back: no CVA tenderness Skin General skin exam: no rashes or lesions noted Neuro General: patient oriented x3 Extrem General: Yes normal to inspection Psych Appearance: grossly normal and well kempt Mental Status: mental status grossly normal Speech and movement: Normal speech and movement present and Clear speech present Affect: normal affect Attitude: cooperative Thought process: Normal thought process present Thought content: Normal thought content present Insight: Fair insight present (Psych) Judgement: Fair judgement present (Psych) Office Procedures Post Void Residual Post Residual Void Post Void Residual (PVR): 0 46957-Iedm Void Residual by ultrasound Results AMB Urinalysis, Automated UA Leukoctes 125 Josy/uL Last Edit by Belinda Sales on 04/06/24 10:30 UA Nitrite Positive Last Edit by Belinda Sales on 04/06/24 10:30 UA Urobilinogen 0.2 mg/dL Last Edit by Belinda Eubanksfermín on 04/06/24 10:30 UA Protein 300 mg/dL Last Edit by Belinda Chafermín on 04/06/24 10:30 UA pH 6.0 Last Edit by Belinda Chafermín on 04/06/24 10:30 UA Blood 80 Louis/uL Last Edit by Belinda Sales on 04/06/24 10:30 UA Specific [place] 1.025 Last Edit by Belinda Chafermín on 04/06/24 10:30 UA Ketone Negative Last Edit by Belinda Chafermín on 04/06/24 10:30 UA Bilirubin 0 mg/dL Last Edit by Belinda Chafermín on 04/06/24 10:30 UA Glucose 0 mg/dL Last Edit by Belinda Chafermín on 04/06/24 10:30 Results Reviewed Results Reviewed: Laboratory Last Values Urine pH (Auto) 6.0 04/06/24 10:28 Specific [place] (Auto) 1.025 04/06/24 10:28 Urine Protein (Auto) 300 mg/dL 04/06/24 10:28 Glucose (UA)(Auto) 0 mg/dL 04/06/24 10:28 Urine Ketones (Auto) Negative 04/06/24 10:28 Urine Blood (Auto) 80 Louis/uL 04/06/24 10:28 Urine Nitrite (Auto) Positive 04/06/24 10:28 Urine Bilirubin (Auto) 0 mg/dL 04/06/24 10:28 Urine Urobilinogen (Auto) 0.2 mg/dL 04/06/24 10:28 Leukocyte Esterase (Auto) 125 Josy/uL 04/06/24 10:28 Date of Service: 03/03/24 EXAMINATION: CT ABDOMEN AND PELVIS WITHOUT CONTRAST FINDINGS: CT ABDOMEN LUNG BASES: Bilateral lung bases are clear. LIVER: Liver appears to be grossly normal on noncontrast enhanced images. Metallic surgical kina are seen along the medial border of right hepatic lobe segment 6. GALLBLADDER AND BILIARY TREE: Gallbladder is surgically absent with clips in the gallbladder fossa. Common bile duct is not dilated. SPLEEN: The spleen is normal in size without focal lesion on noncontrast enhanced images. PANCREAS: The pancreas appears unremarkable on noncontrast enhanced images. ADRENAL GLANDS: Adrenal glands are normal in size without focal lesion bilaterally. KIDNEYS: The visualized bilateral kidneys are normal in size bilateral multiple renal calculi and right lateral mid renal cortical simple cyst measuring 1 cm in diameter, mean attenuation of 2 Hounsfield units for which no follow-up imaging is recommended. 2. Punctate calculi are seen in upper and mid right kidney. Large left posterior mid renal calculus measures 1.9 x 1.5 cm in size. Adjacent posterior mid renal calculus measures 0.4 cm in AP diameter, 1.1 cm in width. There is prominent left perinephric soft tissue stranding.. No caliectasis or dilated pelvis is seen. No dilated ureters are found. BOWELS: There is no abnormal dilatation of the large and small bowel loops. Probable hyaline appendix is seen posteriorly superior to the cecum. RETROPERITONEUM: No abnormally enlarged retroperitoneal lymph nodes, mass or hematoma could be seen. BLOOD VESSELS: Abdominal aorta is normal in size with extensive atherosclerotic calcifications. ABDOMINAL WALL: Small umbilical hernia containing mesenteric fat is seen. PERITONEUM: There is no ascites. There were no abdominal peritoneal inflammatory changes seen. No free peritoneal air was seen. BONES: There is grade 1 L3-L4 anterolisthesis. Advanced L3-L4 and L4-L5 degenerative disc disease with vacuum disc phenomenon is seen. Mild posterior L5-S1 disc protrusion is also seen. No fracture or dislocation. No focal bone lesion diagnostic of metastatic disease could be seen in the lumbar region. CT PELVIS URINARY BLADDER: The visualized urinary bladder is normal, filled with urine. No intraluminal stones are found. No abnormally dilated distal ureters are seen. BOWELS: There is no abnormal dilatation of the large and small bowel loops. Diverticula are seen in the distal sigmoid colon without inflammatory changes. GENITAL ORGANS: No adnexal mass lesion could be seen. The uterus is unremarkable. LYMPH NODES: No abnormally enlarged iliac or inguinal lymph nodes are seen. PERITONEUM: No inflammatory changes, ascites or free peritoneal air are found in the pelvis. BONES: No fracture or dislocation. No focal bone lesion diagnostic of metastatic disease could be seen in the pelvis. IMPRESSION: 1. Bilateral multiple renal calculi, much larger in the left kidney. 2. No evidence of hydronephrosis. 3. Prominent left perinephric soft tissue stranding, could be concerning for pyelonephritis. 4. Sigmoid diverticulosis without evidence of diverticulitis. 5. Status post cholecystectomy. Assessment & Plan Assessment & Plan (1) Acute UTI: Code(s): N39.0 - Urinary tract infection, site not specified Category: Medical (2) Recurrent urinary tract infection: Code(s): N39.0 - Urinary tract infection, site not specified Category: Medical (3) Staghorn calculus: Code(s): N20.0 - Calculus of kidney Category: Medical Plan Will obtain urine and send out for microgen testing for further assessment evaluation; will await results for further treatment. We discussed at length potential causes of recurrent urinary tract infections as well as staghorn calculi. We discussed ureteroscopy however given recent [place] will await cardiac clearance; this was discussed at length. We discussed possible methenamine and vitamin-C for suppression. We discussed initiation of Estrace cream Start Macrobid as discussed and prescribed. Discussed UTI prevention with D mannose supplement, vitamin-C, increasing fluid intake, behavioral therapy with timed voiding, perineal hygiene and postcoital voiding, and management of constipation with stool softeners and increased fiber intake. Stop Gemtesa Follow-up in 4-6 weeks with PVR; or sooner with any issues, concerns, and or questions. Orders: Orders AMB Urinalysis Automated Today Z13.9 - Encounter for screening, unspecified AMB Post Void Residual by ultrasound Today N39.0 - Urinary tract infection, site not specified Medications: New nitrofurantoin macrocrystal must administer with a meal/food 100 mg PO BID 20 caps 0RF 10 days N39.0 - Urinary tract infection, site not specified Patient Instructions: The patient had an opportunity to ask questions regarding the treatment plan. All questions were answered. Physical exam, labs, and imaging were discussed and reviewed in detail. As well as risks, benefits, and discussion of treatment choices. No major barriers to understanding were identified. The patient expressed understanding and agreement with the above treatment plan. The patient was made aware they should contact our office by phone for worsening of their current condition, the appearance of new symptoms, or with any questions or concerns. Compliance is encouraged with any medications and follow up testing that is ordered. It is a privilege to be allowed the opportunity to participate in? your urological care.? Again, if you have any questions or concerns If you have any questions or concerns please do not hesitate to contact me. The office is [phone]. This note is constructed using voice recognition software. While every effort has been made to ensure accuracy business analyst consultant errors may have been included. Yours sincerely, Aimee Martinez, TYPESETTING SUPERVISOR-BC Coding Level of Care Code New Pt Level 4 (49147) Complex EM visit Add On G2211 Diagnoses Acute UTI N39.0 Recurrent urinary tract infection N39.0 Staghorn calculus N20.0 CPT Codes Post Residual Void - PVR CPT Code: 41971-Ligr Void Residual by ultrasound ([id number])
== END 2024-04-06 10:58 | disposition home or self-care (01) ==
PROVIDERS: PCP Internal Medicine; Visit Provider Nurse Practitioner Family
DX: N39.0 Urinary tract infection, site not specified (principal); N20.0 Calculus of kidney; Z13.9 Encounter for screening, unspecified
CPT/HCPCS: 99204; G2211

== ENCOUNTER → 2024-04-06 09:57 | Outpatient (BNVA) | payer MEDICARE, OTHER, SELFPAY | PROVIDERS: PCP Internal Medicine; Visit Provider Nurse Practitioner Family | DX: N20.0 Calculus of kidney (principal); N39.0 Urinary tract infection, site not specified; N39.41 Urge incontinence | CPT/HCPCS: 51798; 81003; 99202 ==

== ENCOUNTER 2024-04-13 11:32 | Outpatient (AMB) | payer MEDICARE, OTHER, SELFPAY ==
--- NOTE | 2024-04-13 11:37 | MHC.OFFVIS ---
Vital Signs 04/13/24 11:38 Height 5 ft 5 in Weight 163 lb 2.273 oz BMI 27.1 BP 140/70 H Blood Pressure Location Lt brachial Position Sitting Pulse 58 Pulse Source Monitor [place] [facility] [place] [facility] [place]-SOB with some chest pain when walking shot distance. Instructional Materials Director Required: No Accompanied by: Daughter Allergies hydroxyzine Allergy (Verified 04/06/24 11:07) Hives imipramine Allergy (Verified 04/06/24 11:07) Hives Medication List - Last Reconciled 04/13/[address] MD albuterol sulfate 90 mcg/actuation 2 inhalations inhalation DAILY PRN atorvastatin 40 mg PO DAILY calcium carbonate-vitamin D3 600 mg-5 mcg (200 unit) (Calcium 600 + D(3)) 1 tab PO BID@0900,1800 clopidogrel 75 mg PO DAILY d-mannose 500 mg PO DAILY fluconazole 150 mg PO Q3D 2 doses fluticasone propion-salmeterol 250-50 mcg/dose 2 inhalations inhalation BID fosfomycin tromethamine 3 grams PO Q3D 9 days furosemide 40 mg PO DAILY gabapentin 300 mg PO TID@0900,1300,1800 lamotrigine 100 mg PO BID@0900,1800 lamotrigine 50 mg PO BID@0900,1800 magnesium citrate 100 mg PO BID@0900,1800 metoprolol tartrate 12.5 mg (1/2 x 25 mg) PO BID omeprazole 40 mg PO BID@0630,1630 vit C,V-Ka-mnisv-lutein-zeaxan 250-90-40-1 mg (PreserVision AREDS-2) 1 tab PO BID@0900,1800 HPI Comments Details: 88-year-old female who is here for follow-up. She was recently seen in the hospital when she presented with pneumonia and congestive heart failure. Echocardiography showed systolic anterior motion of mitral valve and left ventricular outflow tract obstruction and [id number] mitral valve regurgitation. She was clinically volume overloaded and in heart failure. She was diuresed and her vasodilators were stopped. She improved and was discharged home. She did well after that till recently when she started feeling dizzy and fatigued. Today was the worst day as per the daughter who accompanied her. She is feeling little spaced out and has been getting lightheaded feeling. Denying any significant shortness of breath but continues to get some chest discomfort which he has a pressure-like feeling. It appears these symptoms are worse when she has dizziness and LVOT obstruction. She is saying these episodes are prolonged but on discussing she is saying these last for 15-20 minutes with the some confusion. I have explained to the patient and daughter that this will need further workup. Her lisinopril and amlodipine were discontinued while she was in the hospital. 04/13/2024: She is here for follow-up after recent admission to the hospital. She apparently had urinary tract infection and presented with syncope. She was treated with antibiotics and discharged home and then presented again with significant confusion and hypotension. She was fluid resuscitated and blood workup showed evidence of myocardial infarction. Echocardiography showed EF 30% with LAD territory wall motion abnormality. Her biomarkers were as high as 60,000. She was conservatively treated and subsequently was discharged home. She is taking Plavix 75 mg daily and metoprolol tartrate 12.5 mg twice a day. She is on Lasix 40 mg daily. Clinically she is euvolemic. She is saying that she was feeling fine but as a few days ago she has been feeling very lousy and tired. She recently had urinalysis which is showing infection and she was called by urologist that she needs to start antibiotics which she is picking up today. 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 The daughter and the patient are here to discuss about that too. [facility] Medical History (Updated 04/13/24 @ 12:[address] MD) Dynamic left ventricular outflow obstruction Non-ST elevation [place] (NSTEMI) NSTEMI (non-ST elevated myocardial infarction) Chronic diastolic heart failure Hyperlipidemia Hypertension Left bundle branch block Urge incontinence SEBASTIAN on CPAP Fibromyalgia Chronic polyneuropathy History of melanoma Asthma Diastolic dysfunction Social History Household Members: Family Housing: House Do you presently have visiting nurse or other home services: No Unable to assess alcohol history related to: Unable to respond and Unknown Alcohol intake: former Patient Tobacco Use Status: Never used Tobacco Advance Directives Date on File: 12/27/23 service: No Review of Systems Const Denies chills, Denies fatigue, Denies fever(s), Denies frequent falls, Reports weakness, Denies weight gain and Denies weight loss ENT Denies dizziness Card Reports chest pain, Denies leg edema, Denies lightheadedness, Denies palpitations, Reports dyspnea and Denies dyspnea on exertion Resp Denies cough, Reports dyspnea and Denies dyspnea on exertion GI Denies hematochezia Musc Denies abnormal gait, Denies muscle weakness, Denies numbness, Denies radiating pain into limb and Denies tingling Neuro Denies abnormal gait, Denies dizziness, Denies frequent falls, Denies numbness, Denies tingling and Reports weakness Endo Denies fatigue and Denies palpitations Physical Exam Vital Signs: Last Vital Signs Pulse 58 04/13/24 11:38 BP 140/70 H 04/13/24 11:38 BMI result Body Mass Index 27.1 GENERAL APPEARANCE: in no acute distress, appears tired. NECK: no carotid bruit, no jugular venous distention. SKIN: no suspicious lesions, warm and dry. HEART: Systolic murmur left sternal border regular rate and rhythm. LUNGS: clear to auscultation bilaterally. ABDOMEN: soft, nontender. EXTREMITIES: no edema. PERIPHERAL PULSES: equal. NEUROLOGIC: No gross deficits, AAO X 3 Office Procedures EKG Details: Sinus bradycardia 58 beats per minute, left bundle-branch block, premature ventricular complexes, QTC 441 milliseconds. [id number], Complete Assessment & Plan Assessment & Plan (1) Dynamic left ventricular outflow obstruction: Code(s): I51.89 - Other ill-defined heart diseases Category: Medical (2) Left bundle branch block: Code(s): I44.7 - Left bundle-branch block, unspecified Category: Medical (3) Ischemic cardiomyopathy: Code(s): I25.5 - Ischemic cardiomyopathy Category: Medical Plan 88-year-old female with dynamic LVOT obstruction and mitral valve regurgitation. Recent myocardial infarction in the setting of sepsis which was conservatively treated. She was on heparin and apparently had bleeding which led to discontinuation of heparin. Discussions were done with the daughter and son along with the patient that conservative management should be done. She did fine with this approach and was discharged home and is now presenting for follow-up. It appears she has another urinary tract infection. She has a staghorn calculus which requires surgery as per urology discussion with the daughter. I think surgery would be quite challenging in her. She has dynamic LVOT obstruction as well as recent NE. We do not know her coronary anatomy that does she have any further coronary disease or not and I am unsure how well she is going to do with general anesthesia. I think she is high-risk for surgery and it should be avoided if possible. I am referring her to infectious disease to see if she could be managed with chronic suppressive therapy for her urinary tract infections because she gets quite symptomatic from urinary tract infections and her dynamic LVOT obstruction worsens. This led to syncopal episode in the past. Continue Plavix as before. No changes in medications currently. Follow-up with us in few months. We will check repeat echocardiography before next visit. Thank you for allowing me to participate in the care of your patient. Please feel free to contact me if you have any questions. Orders: Orders CA echo transthorac w con [address] MD I25.5 - Ischemic cardiomyopathy Referrals Infectious Disease Referral Tavo Street MD N39.0 - Urinary tract infection, site not specified Medications: Discontinued nitrofurantoin macrocrystal must administer with a meal/food Discontinued Reason: Doctor's Order 100 mg PO BID 20 caps 0RF 10 days Amado French LPN N39.0 - Urinary tract infection, site not specified Coding Level of Care Code Est Pt Level 5 (59086) Diagnoses Dynamic left ventricular outflow obstruction I51.89 Left bundle branch block I44.7 Ischemic cardiomyopathy I25.5 CPT Codes EKG - CPT: 75210-Nhvdsyzibpjiqrams, Complete ([id number])
[2024-04-13 11:38] VITALS: BP 140/70; PULSE 58; BMI 27.1
== END 2024-04-13 12:19 | disposition home or self-care (01) ==
LOC: HO.HCS 11:32
PROVIDERS: PCP Internal Medicine; Visit Provider Internal Medicine Cardiovascular Disease
DX: I51.89 Other ill-defined heart diseases (principal); I44.7 Left bundle-branch block, unspecified; I25.5 Ischemic cardiomyopathy
CPT/HCPCS: 93010; 99214

== ENCOUNTER → 2024-04-13 11:32 | Outpatient (BNVA) | payer MEDICARE, OTHER, SELFPAY | PROVIDERS: PCP Internal Medicine; Visit Provider Internal Medicine Cardiovascular Disease | DX: I44.7 Left bundle-branch block, unspecified (principal); I49.3 Ventricular premature depolarization; I25.5 Ischemic cardiomyopathy; I51.89 Other ill-defined heart diseases | CPT/HCPCS: 93005; 99212 ==

== ENCOUNTER 2024-04-24 15:23 | Outpatient (AMB) | payer MEDICARE, OTHER, SELFPAY ==
[2024-04-24 15:29] VITALS: PULSE 62; O2SAT 97; BMI 29.9
--- NOTE | 2024-04-24 15:29 | A.OFFVIS_ITS ---
Vital Signs 04/24/24 15:29 Height 5 ft 3 in Weight 169 lb BMI 29.9 Pulse 62 Pulse Source Pulse Oximeter Pulse Oximetry (%) 97 Oxygen Delivery Method Room Air Intake Visit Reasons: reff UTI Allergies hydroxyzine Allergy (Verified 04/24/24 15:30) Hives imipramine Allergy (Verified 04/24/24 15:30) Hives HPI HPI reff UTI: Details: She has has recurrent UTIs. She has not had recent one however. She has seen Urology. [facility] Medical History Dynamic left ventricular outflow obstruction Non-ST elevation [place] (NSTEMI) NSTEMI (non-ST elevated myocardial infarction) Chronic diastolic heart failure Hyperlipidemia Hypertension Left bundle branch block Urge incontinence SEBASTIAN on CPAP Fibromyalgia Chronic polyneuropathy History of melanoma Asthma Diastolic dysfunction Social History Household Members: Family Housing: House Do you presently have visiting nurse or other home services: No Unable to assess alcohol history related to: Unable to respond and Unknown Alcohol intake: former Patient Tobacco Use Status: Never used Tobacco Advance Directives Date on File: 12/27/23 service: No Review of Systems Const All systems reviewed & are unremarkable except as noted in HPI and below Physical Exam Vital Signs: Last Vital Signs Pulse 62 04/24/24 15:29 Pulse Ox 97 04/24/24 15:29 Oxygen Delivery Method Room Air 04/24/24 15:29 BMI result Body Mass Index 29.9 Const General: cooperative HEENT Head: Yes normal to inspection Face and sinus: Yes normal facial exam Mouth: Normal oral and palatal mucosa present Teeth and gingiva: dentition normal Eyes General: appearance normal, both eyes and all related structures Pupils: Equal, round and reactive pupils present Resp Effort & Inspection: normal respiratory effort Cardio Rate: regular rate Rhythm: regular rhythm GI Palpation (GI): Soft to palpation and nontender General: Yes no CVA tenderness Back/Spine/Pelvis Back: no CVA tenderness Skin General skin exam: no rashes or lesions noted Neuro General: moves all extremities Cranial nerves: Yes Equal, round and reactive pupils present Extrem General: Yes normal to inspection Psych Appearance: grossly normal Assessment & Plan Assessment & Plan (1) Recurrent urinary tract infection: Comment: There are no prophylactic antibiotics that would be helpful Code(s): N39.0 - Urinary tract infection, site not specified Category: Medical Plan: Consider methenamine decrease urinary acid. No prophylactic antibiotics. Coding Level of Care Code New Pt Level 3 (98436) Diagnoses Recurrent urinary tract infection N39.0
== END 2024-04-24 16:07 | disposition home or self-care (01) ==
LOC: HO.HID 15:24
PROVIDERS: PCP Internal Medicine; Visit Provider Internal Medicine
DX: N39.0 Urinary tract infection, site not specified (principal)
CPT/HCPCS: 99203

== ENCOUNTER → 2024-04-24 15:23 | Outpatient (BNVA) | payer MEDICARE, OTHER, SELFPAY | PROVIDERS: PCP Internal Medicine; Visit Provider Internal Medicine | DX: N39.0 Urinary tract infection, site not specified (principal) | CPT/HCPCS: 99202 ==

== ENCOUNTER 2024-05-09 11:07 | Outpatient (AMB) | payer MEDICARE, OTHER, SELFPAY ==
--- NOTE | 2024-05-09 11:07 | A.OFFVIS_ITS ---
Intake Visit Reasons: 4W UA/PVR(UTI) Intake Note: Patient is present for PVR/Urinalysis Check Urology Med: None Antibiotic Allergy: None Blood Thinner: Clopidogrel Last PVR:0ml Todays PVR: 20ml Last Visit Gemtesa was stopped Recent Microgen: 04/13/24 Was prescribed Fosfomycin Patient states that at last visit she had no UTI Symptoms was told that Bacteria from stone caused Positive UTI Reports that Fosfomycin had helped. Currently patient is not taking any urology medications, gemtesa was stopped at last visit, Patient reports a lot of frequency during the day and would like to discuss options Patient wanted to report that her Gabapentin was changed, she was feeling dizzy recently and once advised with Dr She was prescribed to take Gabapentin once a day at night instead of 3 and reports that there is no longer no feeling of dizziness Senior Vice President And Chief Information Officer Required: No Director Financial Planning: Director Financial Planning Present Accompanied by: Health Care Proxy Allergies hydroxyzine Allergy (Verified 05/09/24 11:20) Hives imipramine Allergy (Verified 05/09/24 11:20) Hives HPI Comments Details: Elvia is a pleasant female. She is a patient of Dr. Sibley. 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 Staghorn Calculus Recent hospitalization [facility] for urinary tract infection with sepsis and what appeared to be a small [place] Longstanding history of recurrent urinary tract infections followed with Urology Has been on Gemtessa Imaging - CT scan with bilateral multiple renal calculi. Large left posterior mid renal calculi 1.9 cm. Long discussion today Recommend antibiotic suppression with fosfomycin Ureteroscopy with laser lithotripsy using suction sheath Urine culture 12/27/23: E coli resistant to Bactrim Urine culture 02/28/24: E coli and Enterococcus faexalis: Resistant to Bactrim and tetracycline [facility] Medical History Dynamic left ventricular outflow obstruction Non-ST elevation [place] (NSTEMI) NSTEMI (non-ST elevated myocardial infarction) Chronic diastolic heart failure Hyperlipidemia Hypertension Left bundle branch block Urge incontinence SEBATSIAN on CPAP Fibromyalgia Chronic polyneuropathy History of melanoma Asthma Diastolic dysfunction Social History Household Members: Family Housing: House Do you presently have visiting nurse or other home services: No Unable to assess alcohol history related to: Unable to respond and Unknown Alcohol intake: former Patient Tobacco Use Status: Never used Tobacco Advance Directives Date on File: 12/27/23 service: No Review of Systems Const Denies chills and Denies fever(s) Card Reports no additional complaints and Denies syncope Resp Denies cough GI Denies abdominal pain and Denies heartburn Reports as per HPI and Denies change in libido Neuro Denies syncope Psych Denies change in libido Endo Denies change in libido Physical Exam Const General: cooperative, healthy appearing, comfortable and no acute distress Orientation/consciousness: patient oriented x3 HEENT Face and sinus: Yes normal facial exam Mouth: moist mucous membranes Neck Neck: Yes normal visual inspection, Yes full ROM and Yes trachea midline Chest Chest palpation & inspection: normal inspection of the chest Resp Effort & Inspection: normal respiratory effort, able to speak in complete sentences and no respiratory distress GI Inspection: Yes normal to inspection Back/Spine/Pelvis Cervical Spine: normal cervical lordosis Thoracic/Lumbar Spine: thoracic and lumbar spine normal to inspection Skin General skin exam: no rashes or lesions noted Neuro General: patient oriented x3, gait normal, tone normal and moves all extremities Extrem General: Yes normal to inspection and Yes capillary refill normal Office Procedures Post Void Residual Post Residual Void Post Void Residual (PVR): 20 55962-Tlbp Void Residual by ultrasound Results AMB Urinalysis, Automated UA Leukoctes 500 Josy/uL Last Edit by FERNANDO Finch on 05/09/24 11:40 UA Nitrite Positive Last Edit by FERNANDO Finch on 05/09/24 11:40 UA Urobilinogen 0.2 mg/dL Last Edit by FERNANDO Finch on 05/09/24 11:4 0 UA Protein 30 mg/dL Last Edit by FERNANDO Finch on 05/09/24 11:40 UA pH 6.0 Last Edit by FERNANDO Finch on 05/09/24 11:40 UA Blood 80 Louis/uL Last Edit by FERNANDO Finch on 05/09/24 11:40 UA Specific [place] 1.020 Last Edit by FERNANOD Finch on 05/09/24 11: 40 UA Ketone Negative Last Edit by FERNANDO Finch on 05/09/24 11:40 UA Bilirubin 0 mg/dL Last Edit by FERNANDO Finch on 05/09/24 11:40 UA Glucose 0 mg/dL Last Edit by FERNANDO Finch on 05/09/24 11:40 Results Reviewed Results Reviewed: Laboratory Last Values Urine pH (Auto) 6.0 05/09/24 11:08 Specific [place] (Auto) 1.020 05/09/24 11:08 Urine Protein (Auto) 30 mg/dL 05/09/24 11:08 Glucose (UA)(Auto) 0 mg/dL 05/09/24 11:08 Urine Ketones (Auto) Negative 05/09/24 11:08 Urine Blood (Auto) 80 Louis/uL 05/09/24 11:08 Urine Nitrite (Auto) Positive 05/09/24 11:08 Urine Bilirubin (Auto) 0 mg/dL 05/09/24 11:08 Urine Urobilinogen (Auto) 0.2 mg/dL 05/09/24 11:08 Leukocyte Esterase (Auto) 500 Josy/uL 05/09/24 11:08 Assessment & Plan Assessment & Plan (1) Staghorn calculus: Code(s): N20.0 - Calculus of kidney Category: Medical (2) Recurrent urinary tract infection: Comment: There are no prophylactic antibiotics that would be helpful Code(s): N39.0 - Urinary tract infection, site not specified Category: Medical Plan They would like to try suppression with fosfomycin She may require procedure Orders: Orders AMB Urinalysis Automated 05/09/24 Z13.9 - Encounter for screening, unspecified Urine Culture 05/09/24 N39.0 - Urinary tract infection, site not specified AMB Post Void Residual by ultrasound 05/09/24 N39.0 - Urinary tract infection, site not specified Medications: New fosfomycin tromethamine 3 grams PO Q3D 3 packets 0RF N39.0 - Urinary tract infection, site not specified fosfomycin tromethamine 3 grams PO Q7D 10 days 10 packets 0RF N39.0 - Urinary tract infection, site not specified Patient Instructions: Imaging studies, laboratory and physical exam results were discussed and reviewed in detail. No major barriers to patient understanding were identified. An opportunity to ask questions regarding the treatment plan was provided. All questions were answered. The patient expressed understanding and agreement with the above treatment plan. The patient is aware they should contact our office by phone for worsening of their current condition or the appearance of new urologic symptoms. Compliance is encouraged with any medications and followup testing that is ordered. It is a privilege to participate in the urologic care of your patient. If you have any questions or concerns regarding treatment for the above conditions, or other urologic issues, please do not hesitate to contact me. The office teleph one contact is [phone]. This note is constructed using voice recognition software. While every effort has been made to ensure accuracy slip sheeter errors may have been included. Yours sincerely, Dr Allen Lieberman MD, [place] [facility] - Urology Providers of Expert, Compassionate Care for the Genitourinary System Coding Level of Care Code Est Pt Level 4 (39227) Diagnoses Staghorn calculus N20.0 Recurrent urinary tract infection N39.0 CPT Codes Post Residual Void - PVR CPT Code: 16530-Uqcw Void Residual by ultrasound ([id number])
== END 2024-05-09 12:27 | disposition home or self-care (01) ==
PROVIDERS: PCP Internal Medicine; Visit Provider Urology
DX: N20.0 Calculus of kidney (principal); N39.0 Urinary tract infection, site not specified
CPT/HCPCS: 99214

== ENCOUNTER 2024-05-09 11:07 | Outpatient (REF) | payer MEDICARE, OTHER, SELFPAY | END 2024-05-09 11:08 | disposition home or self-care (01) | LOC: HO.LAB 11:07 | PROVIDERS: PCP Internal Medicine; Visit Provider Urology | DX: N39.0 Urinary tract infection, site not specified (principal); B96.20 Unspecified Escherichia coli [E. coli] as the cause of diseases classified elsewhere; N20.0 Calculus of kidney | CPT/HCPCS: 51798; 81003; 87086; 87088; 87186; 99212 ==

== ENCOUNTER → 2024-07-14 08:41 | Outpatient (REF) | payer MEDICARE, OTHER, SELFPAY ==
--- NOTE | 2024-07-14 08:44 | CA_ITS ---
Transthoracic Echocardiogram Patient (Last, First, Middle): Elvia Winkler S Gender: Female Date of : 1935 Age: 89 Procedure Date: 07/14/2024 Procedure Type: Transthoracic Echocardiogram Location: OP Height: 165.1 cm Weight: 72.58 kg BSA: 1.80 m2 Heart Rate: bpm BP: 106 / 60 mmHg Seam Finisher: TO Referring MD: Tavo Street MD Wood Type Finisher: Shadi Haq MD Symptoms: I25.5 - Ischemic cardiomyopathy Study Quality: Adequate ECG Rhythm: Sinus Conclusions: - 1. Mildly reduced LV ejection fraction 45-50 % with elevated filling pressures with dynamic LVOT obstruction with severe obstruction with Valsalva with moderate asymmetric septal hypertrophy 2. Moderately dilated left atrium 3. Calcific aortic and mitral valve changes noted with mild-to moderate mitral regurgitation 4. Normal RV systolic pressure 5. No gross pericardial effusion Findings Left Ventricle Normal left ventricular cavity size. There is normal left ventricular wall thickness. The left ventricular systolic function is mildly decreased. The visually estimated ejection fraction is between 45-50%. There is paradoxical septal motion consistent with a left bundle branch block. There is systolic anterior motion of the mitral valve. The left ventricular outflow tract gradient at rest is 21 mmHg. Spectral Doppler is indicative of an impaired relaxation filling pattern. Elevated filling pressures. E/E prime ratio is >15, consistent with elevated filling pressures. There is moderate septal asymmetric hypertrophy. moderate gradient at rest which increases to 130 mm Hg with Valsalva, question partly involving mitral regurgitation envelope can not be entirely ruled out. This is suggestive of dynamic LVOT obstruction Wall Motion Rest Echo Findings The anteroseptal wall and apex segment are hypokinetic. All other scored wall segments showed normal motion. Right Ventricle Mildly increased right ventricular cavity size. There is normal right ventricular systolic function. Atria The left atrium is moderately dilated. There is no evidence of interatrial shunt. The right atrium is mildly dilated. Aortic Valve There is mild calcification of the aortic valve. There is no aortic valve regurgitation. Mitral Valve There is mild anterior and moderate posterior mitral leaflet thickening. There is moderate mitral annular calcification. There is mild to moderate mitral valve regurgitation. There is no mitral valve stenosis. Pulmonic Valve The pulmonic valve was not well visualized. Tricuspid Valve Likely normal tricuspid valve structure and function. There is trace tricuspid valve regurgitation. The right ventricular systolic pressure is normal. The right ventricular systolic pressure is 21 mmHg. Normal right atrial pressure. There is no evidence of pulmonary hypertension. Great Vessels All visible segments of the aorta are normal in size. The pulmonary artery was not well visualized. There is no dilatation of the ascending aorta measuring 3.30 cm. Venous The inferior vena cava is normal in size and collapses greater than 50% with inspiration. Pericardium/Pleural There is no evidence of pericardial effusion. Prior Study Comparison Changes noted compared to prior study dated: 03/03/2024. improved LV ejection fraction. Measurements 2D Linear Measurements IVSd: 1.44 0.6-0.9/0.6-1.0 cm LVIDd: 4.53 3.9-5.3/4.2-5.9 cm LVIDd Index: 2.52 2.4-3.2/2.2-3.1 cm/m2 LVIDs: 3.60 2.0-3.6 cm LVPWd: 0.92 0.7-1.1 cm LA Diam: 3.70 2.7-3.8/3.0-4.0 cm LAIDs Index: 2.06 1.5-2.3 cm/m2 LV Mass: 243.34 67-162/88-224 g LV Mass Index: 135.19 43-95/49-115 g/m2 LVOT Diam: 2.00 3.0+(-)1.3 cm 2D Systolic Function EF 4C: 42.30 >55% EF 2C: 51.50 >55% EF BiP: 45.20 >55% Mitral Valve MV VTI: 0.56 MV Pk Yovani: 1.76 MV Mn Yovani: 0.98 MV Pk Grad: 12.00 MV Mn Grad: 5.00 MV Pk E: 0.96 MV PK A: 1.37 MV Decel Time: 274.00 E/A: 0.70 E'Lateral: 3.26 E'Medial: 2.39 E/E' Med: 40.20 E/E' Lat: 29.50 PHT: 80.00 MVA PHT: 2.75 MVA Continuity: 3.47 Decel Dupage: 3.51 Aortic Valve AoV Pk Yovani: 2.97 AoV Mn Yovani: 2.07 AoV VTI: 0.62 AoV Pk Grad: 35.00 Aov Mn Grad: 20.00 JULIET Cont.VTI: 3.14 LVOT LVOT Pk Yovani: 3.27 LVOT Mn Yovani: 2.11 LVOT VTI: 0.62 LVOT Pk Grad: 43.00 LVOT Mn Grad: 21.00 LVOT Diam: 2.00 LVOT Area: 3.14 Diastolic Function MV Pk E: 0.96 MV Pk A: 1.37 E/A: 0.70 E'Medial: 2.39 E/E' Med: 40.20 E' Laterial: 3.26 E/E' Lat: 29.50 Right Ventricle TAPSE (mm): 21.60 TVS' Yovani: 11.20 Tricuspid Valve TR Pk Yovani: 2.14 TR Pk Grad: 18.00 RA Press: 3.00 RVSP: 21.00 Great Vessels Aorta Sinus of Valsalva: 3.08 2.0-3.5 cm Ao Asc: 3.30 2.1-3.4 cm Updated in Other Vendor System with Status of Final Shadi Haq MD electronically signed on 07/14/2024 2:27:23 PM with status of Final
== END ==
LOC: HO.CARD 08:41
PROVIDERS: PCP Internal Medicine; Visit Provider Internal Medicine Cardiovascular Disease
DX: I25.5 Ischemic cardiomyopathy (principal)
CPT/HCPCS: 93306

== ENCOUNTER → 2024-07-14 08:44 | Outpatient (BNV) | payer MEDICARE, OTHER, SELFPAY | PROVIDERS: PCP Internal Medicine; Visit Provider Internal Medicine Cardiovascular Disease | DX: I42.1 Obstructive hypertrophic cardiomyopathy (principal); I51.7 Cardiomegaly; I34.0 Nonrheumatic mitral (valve) insufficiency; I44.7 Left bundle-branch block, unspecified | CPT/HCPCS: 93306 ==

== ENCOUNTER → 2024-07-17 09:31 | Outpatient (BNVA) | payer MEDICARE, OTHER, SELFPAY | PROVIDERS: PCP Internal Medicine; Visit Provider Internal Medicine Cardiovascular Disease | DX: I25.5 Ischemic cardiomyopathy (principal); I51.89 Other ill-defined heart diseases; I44.7 Left bundle-branch block, unspecified | CPT/HCPCS: 99212 ==

== ENCOUNTER 2024-08-10 10:38 | Outpatient (AMB) | payer MEDICARE, OTHER, SELFPAY ==
--- NOTE | 2024-08-10 10:38 | MHC.OFFVIS ---
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 She is a patient of Dr. Sibley. 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 Telemedicine Evaluation 15 min Consultation One[employer] Tracy Video Is in the midst of undergoing cardiac evaluation History from her daughter Concerns regarding hypertrophic response and does get breathless after 20 ft Has planned cardiac testing at [facility] followed by assessment in late August Will continue with antibiotic suppression and review in late September Has been responding well Staghorn Calculus Recent hospitalization [facility] for urinary tract infection with sepsis and what appeared to be a small [place] Longstanding history of recurrent urinary tract infections followed with Urology Has been on [facility] - CT scan with bilateral multiple renal calculi. Large left posterior mid renal calculi 1.9 cm. 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 on CPAP Fibromyalgia Chronic polyneuropathy History of melanoma Asthma Diastolic dysfunction Social History Household Members: Family Housing: House Do you presently have visiting nurse or other home services: No Unable to assess alcohol history related to: Unable to respond and Unknown Alcohol intake: former Patient Tobacco Use Status: Never used Tobacco Advance Directives Date on File: 12/27/23 service: No Review of Systems Const All systems reviewed & are unremarkable except as noted in HPI and below Reports no additional complaints Resp Reports no additional complaints GI Reports no additional complaints Reports as per HPI Musc Reports no additional complaints Physical Exam Telemedicine evaluation Appropriate responses Regular breathing rate and rhythm HEENT Head: Yes normal to inspection Ears: hearing grossly normal bilaterally Eyes General: appearance normal, both eyes and all related structures Neck Neck: Yes normal visual inspection Chest Chest palpation & inspection: normal inspection of the chest Resp Effort & Inspection: normal respiratory effort and able to speak in complete sentences Telehealth Telehealth Telehealth Platform: [employer] Location of provider rendering services: practice address Location of patient: address on file Patient Identification confirmed using: Name, : Yes Telehealth method: video Patient verbally consented to treatment: Yes Patient verbally consented to billing insurance company: Yes Patient informed of any privacy concerns related to visit: Yes Minutes spent on Phone/Video with Pt.: 15 Assessment & Plan Assessment & Plan (1) Acute UTI: Code(s): N39.0 - Urinary tract infection, site not specified Category: Medical (2) Staghorn calculus: Code(s): N20.0 - Calculus of kidney Category: Medical Plan Continue suppression Follow-up after evaluation with cardiology at [facility] Patient Instructions: This note is constructed using voice recognition software. While every effort has been made to ensure accuracy rubber and pounder errors may have been included. Imaging studies, laboratory and physical exam results were discussed and reviewed in detail. No major barriers to patient understanding were identified. An opportunity to ask questions regarding the treatment plan was provided. All questions were answered. The patient expressed understanding and agreement with the above treatment plan. The patient is aware they should contact our office by phone for worsening of their current condition or the appearance of new urologic symptoms. Compliance is encouraged with any medications and followup testing that is ordered. It is a privilege to participate in the urologic care of your patient. If you have any questions or concerns regarding treatment for the above conditions, or other urologic issues, please do not hesitate to contact me. The office telephone contact is [phone]. Sincerely, Dr Allen Lieberman MD, [place] [facility] - Urology Compassionate Specialist Care for the Genitourinary System Coding Level of Care Code Tele Est Pt Level 3 (03305) Complex EM visit Add On G2211 Diagnoses Acute UTI N39.0 Staghorn calculus N20.0
--- OUTSIDE RECORDS SUMMARY | 2024-08-10 11:46 | XMS_ITS | Data Portability ---
Author Organization [facility], [facility] Address [address] [place] [address] Assessment No assessment recorded. Plan of Treatment Reminders Order Date Submit Date Provider Last Modified By Organization Details Last Modified Time Details Appointments RECHECK 15 2024 08:15A José Manuel Mix PA-C Not available Not available Not available Lab None recorded . Referral None recorded . Procedures None recorded . Surgeries None recorded . Imaging None recorded . Medication Orders None recorded . Patient TargetsNo targets recorded. Patient InstructionsNo instructions recorded. Reason for Referral None Reported. 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 Procedures Surgical History Date Name Laterality Status Provider Name and Address Organization Details Recorded Time 4 Sports Shoulder 4&1 completed Kurt Mix PA-C [address], [place], [address], [facility] 05/12/2024 08:49:12 4 Sports Shoulder 4&1 completed Kurt Mix PA-C [address], [place], [address], [facility] 02/10/2024 10:25:11 4 Sports Shoulder 4&1 completed Kurt Mix PA-C [address] [facility] [address], [place], [address], [facility] 09/16/2023 08:59:25 Imaging Results None recorded. Procedure Notes None recorded. Medical Equipment None Reported. Medications Name Sig Start Date Stop Date Status Note LastModified by Organization Details LastModified Time furosemide 40 mg tablet TAKE 1 TABLET BY MOUTH DAILY active Not Available Not Available Not Available atorvastatin 40 mg tablet TAKE 1 TABLET BY MOUTH DAILY active Not Available Not Available Not Available doxycycline hyclate 100 mg capsule TAKE 1 CAPSULE BY MOUTH TWICE DAILY FOR 10 DAYS active Not Available Not Available No t Available fosfomycin tromethamine 3 gram oral packet TAKE 3 GRAMS BY MOUTH EVERY 3 DAYS FOR 3 DOSES active Not Available Not Available No t Available nitroglyceri n 0.3 mg sublingual tablet active Not Available Not Available Not Available fluconazole 150 mg tablet TAKE 1 TABLET BY MOUTH EVERY 3 DAYS FOR 2 DOSES active Not Available Not Available No t Available sulfamethoxa zole 400 mg-trimethop rim 80 mg tablet TAKE 1 TABLET BY MOUTH TWICE DAILY FOR 10 DAYS active Not Available Not Available No t Available clopidogrel 75 mg tablet TAKE 1 TABLET BY MOUTH DAILY active Not Available Not Available Not Available chlorthalido ne 25 mg tablet active Not Available Not Available Not Available omeprazole 40 mg capsule,domonique yed release active Not Available Not Available Not Available lamotrigine 25 mg tablet active Not Available Not Available Not Available amoxicillin 875 mg tablet TAKE 1 TABLET BY MOUTH TWICE DAILY active Not Available Not Available No t Available amlodipine 10 mg tablet active Not Available Not Available Not Available pseudoephedr ine-guaifene sin ER 80-700 mg tablet,exten ded release Percocet 5-325MG Tablet three times a day 2003 active Statu s: 'Curr ent'; Not Available Not Available Not Available nitrofuranto in macrocrystal 100 mg capsule TAKE 1 CAPSULE BY MOUTH TWICE DAILY FOR 10 DAYS active Not Available Not Available No t Available lisinopril 10 mg tablet active Not Available Not Available Not Available gabapentin 300 mg capsule TAKE 1 CAPSULE BY MOUTH THREE TIMES DAILY EMERGENCYSU PPLY UNTIL MAIL ORDER COMES IN active Not Available Not Available No t Available omeprazole 20 mg capsule,domonique yed release active Not Available Not Available Not Available lisinopril 5 mg tablet active Not Available Not Available No t Available furosemide 20 mg tablet TAKE 1 TABLET BY MOUTH DAILY NEEDED FOR LEG SWELLING active Not Available Not Available No t Available estradiol 0.01% (0.1 mg/gram) vaginal cream active Not Available Not Available Not Available albuterol sulfate HFA 90 mcg/actuatio n aerosol inhaler active Not Available Not Available Not Available lamotrigine 100 mg tablet active Not Available Not Available Not Available neomycin 3.5 mg/g-polymyx in B 10,000 unit/g-dexam eth 0.1 % eye oint active Not Available Not Available Not Available metoprolol tartrate 25 mg tablet TAKE 0.5 TABLET BY MOUTH TWICE DAILY active Not Available Not Available No t Available nitrofuranto in monohydrate/ macrocrystal s 100 mg capsule TAKE 1 CAPSULE BY MOUTH TWICE DAILY FOR 5 DAYS active Not Available Not Available No t Available budesonide-f ormoterol HFA 160 mcg-4.5 mcg/actuatio n aerosol inhaler INHALE 2 PUFFS BY MOUTH TWICE DAILY USE VIA SPACER active Not Available Not Available N ot Available ProChamber DIRECTED WITH METERED DOSE INHALERS active Not Available Not Available No t Available Wixela Inhub 250 mcg-50 mcg/dose powder for inhalation active Not Available Not Available N ot Available Gemtesa 75 mg tablet active Not Available Not Available No t Available Vitals Date Recorded Body height Body mass index (BMI) Body weight Provider Name and Address Organization Details Last Updated DateTime 09/16/2023 160.02 cm 29.2 kg/m2 09439.74 g Kurt Mix PA-C [address] [place] [address] [address], [place], [address], [place] [facility] 09/16/2023 08:48:16 Date Recorded Body height Body mass index (BMI) Body weight Provider Name and Address Organization Details Last Updated DateTime 02/10/2024 160.02 cm 29.2 kg/m2 48546.74 g Klaudia Cheema [place] [facility] 02/10/2024 10:12:09 Date Recorded Body height Body mass index (BMI) Body weight Provider Name and Address Organization Details Last Updated DateTime 05/12/2024 160.02 cm 29.2 kg/m2 01230.74 g Joann Mcclendon [place] [facility] 05/12/2024 08:17:08 Social History None recorded. Functional Status None recorded. Mental Status None recorded. Family History Nothing Reported. Medical History No medical history recorded. Gynecological HistoryNo gynecological history recorded. Obstetrics History GPAL:G 0 P 0 0 0 0 Past Encounters Encounter ID Performer Location Encounter Start Date Encounter Closed Date Diagnosis/Indication Diagnosis SNOMED-CT Code Diagnosis ICD10 Code Diagnosis Note [id number] Kurt Mix PA-C [place] [address] [place] [address] 09/16/2023 08:41:37 09/16/2023 10:55:38 Osteoarthritis of joint of left shoulder region [id number] 77846 M19.025 [id number] GEORGINA [place] [address] [place] [address] 02/10/2024 09:45:50 02/10/2024 10:58:53 Osteoarthritis of joint of left shoulder region [id number] 65223 M19.516 [id number] Kurt Mix PA-C [place] [address] [place] [address] 05/12/2024 08:07:47 06/18/2024 06:13:02 Osteoarthritis of joint of left shoulder region [id number] 30002 M19.012 Health Concerns Section Related Observation LastModified by Organization Detai ls LastModified Time None Recorded Concern Status LastModified by Organization Details LastModified Time None Recorded Advance Directives Directive None Recorded Payers Encounter Date Sequence Insurance Name Policy Number Policy Medeiros Covered Member ID Medeiros Member ID Guarantor Name 09/16/2023 2 FOR LIFE () Elvia Hayes Ubertalli [id number] Elvia Hayes Ubertalli 09/16/2023 1 [place] [employer] Elvia Hayes Lorenzoertalli [id number] Elvia Hayes Ubertalli 02/10/2024 2 FOR LIFE () Elvia Hayes Ubertalli [id number] Elvia Hayes Ubertalli 02/10/2024 1 [place] [employer] Elvia Hayes Ubertalli [id number] Elvia Hayes Ubertalli 05/12/2024 2 FOR LIFE () Elvia Winkler [id number] Elvia Winkler 05/12/2024 1 [place] [facility] Elvia Winkler [id number] Elvia Winkler Notes Date Note Type Note Provider Name and Address Organization Details Recorded Time 09/16/2023 text/html I am seeing the patient today under the supervision of {Yuri Nava}} who was available but who did not see the patient. HPI: Patient returns for follow-up of left shoulder pain. 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 Patient has been doing well with conservative management. Past family, medical, social history and review of systems has been reviewed, updated and is located in the patient? s chart. Examination: The patient is well appearing and in no apparent distress. Alert and oriented x3. Gait is symmetric. No significant swelling warmth or erythema of the left shoulder. Range of motion of the shoulder: Decrease in all planes with pain and crepitus. 4-5 strength of the left shoulder. Peripheral, vascular, lymphatic examination, skin, neurological, coordination, reflexes, sensation are within normal limits. 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 Plan: Reviewed diagnosis with the patient today in the office. Discussed role of conservative management versus total shoulder arthroplasty. Activity modification discussed. P.r.n. Tylenol or NSAIDs can be used. Discussed the role of injection therapies. Injected the glenohumeral joint of the left shoulder. Injected 80 mg of Kenalog, and 10 cc of 1/4% Marcaine. Follow up p.r.n. Kurt Mix PA-C [address] [facility] [address], [place], [address], [facility] 09/16/2023 09:00:08 02/10/2024 text/html I am seeing the patient today under the supervision of {{Shena Nava}} who was available but who did not see the patient. HPI: Patient returns for follow-up of left shoulder pain. 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 Patient has been doing well with conservative management. Past family, medical, social history and review of systems has been reviewed, updated and is located in the patient? s chart. Examination: The patient is well appearing and in no apparent distress. Alert and oriented x3. Gait is symmetric. No significant swelling warmth or erythema of the left shoulder. Range of motion of the shoulder: Decrease in all planes with pain and crepitus. 4-5 strength of the left shoulder. Peripheral, vascular, lymphatic examination, skin, neurological, coordination, reflexes, sensation are within normal limits. 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 Plan: Reviewed diagnosis with the patient today in the office. Discussed role of conservative management versus total shoulder arthroplasty. Activity modification discussed. P.r.n. Tylenol or NSAIDs can be used. Discussed the role of injection therapies. Injected the glenohumeral joint of the left shoulder. Follow up p.r.n. Kurt Mix PA-C [address] [place] [address], [address], [facility] 02/10/2024 10:25:35 05/12/2024 text/html I am seeing the patient today under the supervision of {{Shena Nava*}} who was available but who did not see the patient. HPI: Patient returns for follow-up of left shoulder pain. 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 Patient has been doing well with conservative management. Past family, medical, social history and review of systems has been reviewed, updated and is located in the patient? s chart. Examination: The patient is well appearing and in no apparent distress. Alert and oriented x3. Gait is symmetric. No significant swelling warmth or erythema of the left shoulder. Range of motion of the shoulder: Decrease in all planes with pain and crepitus. 4-5 strength of the left shoulder. Peripheral, vascular, lymphatic examination, skin, neurological, coordination, reflexes, sensation are within normal limits. 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 Plan: Reviewed diagnosis with the patient today in the office. Discussed role of conservative management versus total shoulder arthroplasty. Activity modification discussed. P.r.n. Tylenol or NSAIDs can be used. Discussed the role of injection therapies. Injected the glenohumeral joint of the left shoulder. Follow up p.ramparo. Kurt Mix PA-C [address], [place], [address], [facility] 05/12/2024 08:49:43 OBGyn Episode No OBEpisode recorded.
== END 2024-08-10 11:34 | disposition home or self-care (01) ==
LOC: HO.HUSH 10:38
PROVIDERS: PCP Internal Medicine; Visit Provider Urology
DX: N39.0 Urinary tract infection, site not specified (principal); N20.0 Calculus of kidney
CPT/HCPCS: 99213; G2211

== ENCOUNTER 2024-10-23 10:10 | Outpatient (AMB) | payer MEDICARE, OTHER, SELFPAY ==
--- NOTE | 2024-10-23 10:14 | A.OFFVIS_ITS ---
Vital Signs 10/23/24 10:18 Height 5 ft 3 in Weight 166 lb 10.711 oz BMI 29.5 BP 130/64 Blood Pressure Location Lt brachial Position Sitting Pulse 56 Pulse Source Monitor Intake Visit Reasons: 2wk f/up cath-10/05 Intake Note: 2 wk f/up cath 10/05- pt having SOB Electronic Tech Required: No Accompanied by: Daughter Allergies hydroxyzine Allergy (Verified 08/10/24 10:39) Hives imipramine Allergy (Verified 08/10/24 10:39) Hives Medication List - Last Reconciled 10/23/[address] MD aspirin (Adult Low Dose Aspirin) 81 mg PO DAILY atorvastatin 40 mg PO DAILY cholecalciferol (vitamin D3) 25 mcg PO DAILY clopidogrel 75 mg PO DAILY d-mannose 500 mg PO DAILY fosfomycin tromethamine 3 grams PO Q3D 3 doses fosfomycin tromethamine 3 grams PO Q7D fosfomycin tromethamine 1 packet PO Q OTHER DAY gabapentin 300 mg PO ONCE Lacto no.71-Gousxe-DWD-larch 25B cell-25B cell-50 mg caps PO magnesium citrate 100 mg PO BID@0900,1800 metoprolol tartrate 12.5 mg (1/2 x 25 mg) PO BID omeprazole 40 mg PO BID@0630,1630 vit C,X-Xp-flgul-lutein-zeaxan 250-90-40-1 mg (PreserVision AREDS-2) 1 tab PO BID@0900,1800 HPI Comments Details: 89-year-old female who is here for follow-up. She was seen in the hospital when she presented with pneumonia and congestive heart failure. Echocardiography showed systolic anterior motion of mitral valve and left ventricular outflow tract obstruction and nyzy-uz-potdacma mitral valve regurgitation. She was clinically volume overloaded and in heart failure. She was diuresed and her vasodilators were stopped. She improved and was discharged home. She did well after that till recently when she started feeling dizzy and fatigued. She is feeling little spaced out and has been getting lightheaded feeling. Denying any significant shortness of breath but continues to get some chest discomfort which he has a pressure-like feeling. It appears these symptoms are worse when she has dizziness and LVOT obstruction. She is saying these episodes are prolonged but on discussing she is saying these last for 15-20 minutes with some confusion. I have explained to the patient and daughter that this will need further workup. Her lisinopril and amlodipine were discontinued while she was in the hospital. 04/13/2024: She is here for follow-up after recent admission to the hospital. She apparently had urinary tract infection and presented with syncope. She was treated with antibiotics and discharged home and then presented again with significant confusion and hypotension. She was fluid resuscitated and blood workup showed evidence of myocardial infarction. Echocardiography showed EF 30% with LAD territory wall motion abnormality. Her HS trop were as high as 60,000. She was conservatively treated and subsequently was discharged home. She is taking Plavix 75 mg daily and metoprolol tartrate 12.5 mg twice a day. She is on Lasix 40 mg daily. Clinically she is euvolemic. She is saying that she was feeling fine but as a few days ago she has been feeling very lousy and tired. She recently had urinalysis which is showing infection and she was called by urologist that she needs to start antibiotics which she is picking up today. 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 The daughter and the patient are here to discuss about that too. 07/17/2024: Elvia returns for follow-up. On last visit she was discussing about urological surgery for staghorn calculus. I told her that she is moderate to high-risk for surgery. I also told her that given dynamic LVOT obstruction the situation can be unpredictable at times with more obstruction happening with anesthesia. She was subsequently referred to ID to see if chronic suppression with antibiotics is a possibility but it appears she was not started on any antibiotics. She is currently taking fosfomycin through urology and she has b een feeling better. She is more awake and interactive. She is still has some chest discomfort and shortness of breath with minimal exertion. Echocardiography performed on July 14 2024 showing EF 45-50% with elevated filling pressures with dynamic LVOT obstruction with severe obstruction with Valsalva with moderate asymmetric septal hypertrophy. LVOT gradient at rest 21 mm Hg which increases to 130 mm Hg with Valsalva. Anteroseptal wall and apex are hypokinetic. 10/23/2024: She is here for follow-up. She was sent to the [facility] clinic for further assessment for dynamic LVOT obstruction. She underwent testing there which did not reveal significant gradient across the left ventricular outflow tract. She also had MRI performed we did not show any significant scar in the LAD territory. She underwent cardiac catheterization where severe LAD stenosis was noted and she underwent drug-eluting stent to the LAD. Since then she had chest discomfort has improved significantly. She continues to get some fatigue with activities. She is taking fosfomycin and has been doing well with that without any recent UTIs. [facility] Medical History Dynamic left ventricular outflow obstruction Non-ST elevation NC (NSTEMI) NSTEMI (non-ST elevated myocardial infarction) Chronic diastolic heart failure Hyperlipidemia Hypertension Left bundle branch block Urge incontinence SEBASTIAN on CPAP Fibromyalgia Chronic polyneuropathy History of melanoma Asthma Diastolic dysfunction Surgical History (Updated 10/23/24 @ 10:23 by Loren Perdue CMA) Hx of cardiac cath Social History Household Members: Family Housing: House Do you presently have visiting nurse or other home services: No Unable to assess alcohol history related to: Unable to respond and Unknown Alcohol intake: former Patient Tobacco Use Status: Never used Tobacco Advance Directives Date on File: 12/27/23 service: No Review of Systems Const Denies chills, Denies fatigue, Denies fever(s), Denies frequent falls, Denies weakness, Denies weight gain and Denies weight loss ENT Denies dizziness Card Denies chest pain, Denies leg edema, Denies lightheadedness, Denies palpitati ons, Denies dyspnea and Reports dyspnea on exertion Resp Denies cough, Denies dyspnea and Reports dyspnea on exertion GI Denies hematochezia Musc Denies abnormal gait, Denies muscle weakness, Denies numbness, Denies radiating pain into limb and Denies tingling Neuro Denies abnormal gait, Denies dizziness, Denies frequent falls, Denies numbness, Denies tingling and Denies weakness Endo Denies fatigue and Denies palpitations Physical Exam Vital Signs: Last Vital Signs Pulse 56 10/23/24 10:18 BP 130/64 10/23/24 10:18 BMI result Body Mass Index 29.5 GENERAL APPEARANCE: in no acute distress. NECK: no carotid bruit, no jugular venous distention. SKIN: no suspicious lesions, warm and dry. HEART: No murmur, regular rate and rhythm. LUNGS: clear to auscultation bilaterally. ABDOMEN: soft, nontender. EXTREMITIES: no edema. PERIPHERAL PULSES: equal. NEUROLOGIC: No gross deficits, AAO X 3 Office Procedures EKG Details: Sinus bradycardia 56 beats per minute left bundle-branch block, QTC 445 milliseconds. [id number], Complete Assessment & Plan Assessment & Plan (1) Ischemic cardiomyopathy: Code(s): I25.5 - Ischemic cardiomyopathy Category: Medical (2) Dynamic left ventricular outflow obstruction: Code(s): I51.89 - Other ill-defined heart diseases Category: Medical (3) Left bundle branch block: Code(s): I44.7 - Left bundle-branch block, unspecified Category: Medical Plan [age] year female who is here for follow-up. She has background history of recurrent UTI and dynamic LVOT obstruction. Her peak gradient across the left ventricular outflow tract with Valsalva was 130 mm Hg during 1 of her hospitalizations. She had NSTEMI with LAD territory wall motion abnormality in the setting of sepsis and hypotension. She was conservatively treated at that time. Subsequently referred to [facility] and underwent further testing there including diagnostic cardiac catheterization. She was found to have s evere LAD stenosis which was stented. By their assessment she did not have significant left ventricular outflow tract obstruction. I think she is very sensitive to sepsis/infection. When she is really sick with sepsis/vasodilation she gets dynamic LVOT obstruction. I think with suppression therapy with fosfomycin she has been doing well. She has staghorn calculi and may benefit from surgery but obviously with recent stenting and being on aspirin and Plavix currently she can not undergo surgery. I think she should postpone this at least for 4-5 months. At that stage also I think she should be operated without holding aspirin, Plavix can be held at that stage. Overall euvolemic. We discussed that although no problem was picked up during her assessment at [facility] this does not mean that she can not have problems when she gets infections. We need to stay vigilant with hydration and prompt care should be seeked in case she has any signs of infection. Follow-up in few months. Thank you for allowing me to participate in the care of your patient. Please feel free to contact me if you have any questions. Orders: Orders Complete Blood Count Auto Diff 1 Month I25.5 - Ischemic cardiomyopathy Coding Level of Care Code Est Pt Level 5 (60106) Diagnoses Ischemic cardiomyopathy I25.5 Dynamic left ventricular outflow obstruction I51.89 Left bundle branch block I44.7 CPT Codes EKG - CPT: 30847-[id number], Complete ([id number])
[2024-10-23 10:18] VITALS: BP 130/64; PULSE 56; BMI 29.5
== END 2024-10-23 10:58 | disposition home or self-care (01) ==
LOC: HO.HCS 10:11
PROVIDERS: PCP Internal Medicine; Visit Provider Internal Medicine Cardiovascular Disease
DX: I25.5 Ischemic cardiomyopathy (principal); I51.89 Other ill-defined heart diseases; I44.7 Left bundle-branch block, unspecified
CPT/HCPCS: 93010; 99214

== ENCOUNTER → 2024-10-23 10:10 | Outpatient (BNVA) | payer MEDICARE, OTHER, SELFPAY | PROVIDERS: PCP Internal Medicine; Visit Provider Internal Medicine Cardiovascular Disease | DX: I25.5 Ischemic cardiomyopathy (principal); I51.89 Other ill-defined heart diseases; I44.7 Left bundle-branch block, unspecified | CPT/HCPCS: 93005; 99212 ==

== ENCOUNTER 2024-12-13 14:09 | Outpatient (AMB) | payer MEDICARE, OTHER, SELFPAY ==
--- NOTE | 2024-12-13 14:14 | MHC.OFFVIS ---
Intake Visit Reasons: follow up Intake Note: Patient is present for F/U Urology Medication: FOSFOMYCIN Antibiotic Allergy:NONE Blood Thinner:ASPIRIN Allergies hydroxyzine Allergy (Verified 12/13/24 14:16) Hives imipramine Allergy (Verified 12/13/24 14:16) Hives HPI Comments Details: Elvia is a pleasant female. She is a patient of Dr. Sibley. 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 Telemedicine Evaluation 15 min Consultation Invoice2[employer] Tracy Video Is in the midst of undergoing cardiac evaluation History from her daughter - Jayna Had cardiac stent placed in August at [facility] with 90% stenosis Has been improving Appears to have urinary tract infection from dipstick performed earlier this week. We will go Augmentin based on culture results from April Would go back on fosfomycin once complete We can see her in March to discuss intervention with the stone Concerns regarding hypertrophic response and does get breathless after 20 ft Undergoing cardiology examination Has remained on antibiotic suppression with fosfomycin weekly Large stone Staghorn Calculus Recent hospitalization [facility] for urinary tract infection with sepsis and what appeared to be a small DE Longstanding history of recurrent urinary tract infections followed with Urology Has been on [facility] - CT scan with bilateral multiple renal calculi. Large left posterior mid renal calculi 1.9 cm. Long discussion today Recommend antibiotic suppression with fosfomycin Ureteroscopy with laser lithotripsy using suction sheath Urine culture 12/27/23: E coli resistant to Bactrim Urine culture 02/28/24: E coli and Enterococcus faexalis: Resistant to Bactrim and tetracycline PFSH Medical History Dynamic left ventricular outflow obstruction Non-ST elevation DE (NSTEMI) NSTEMI (non-ST elevated myocardial infarction) Chronic diastolic heart failure Hyperlipidemia Hypertension Left bundle branch block Urge incontinence SEBASTIAN on CPAP Fibromyalgia Chronic polyneuropathy History of melanoma Asthma Diastolic dysfunction Surgical History (Updated 10/23/24 @ 16:[address] MD) Hx of cardiac cath Social History Household Members: Family Housing: House Do you presently have visiting nurse or other home services: No Unable to assess alcohol history related to: Unable to respond and Unknown Alcohol intake: former Patient Tobacco Use Status: Never used Tobacco Advance Directives Date on File: 12/27/23 service: No Review of Systems Const All systems reviewed & are unremarkable except as noted in HPI and below Reports no additional complaints Resp Reports no additional complaints GI Reports no additional complaints Reports as per HPI Musc Reports no additional complaints Physical Exam Telemedicine evaluation Appropriate responses Regular breathing rate and rhythm HEENT Head: Yes normal to inspection Ears: hearing grossly normal bilaterally Eyes General: appearance normal, both eyes and all related structures Neck Neck: Yes normal visual inspection Chest Chest palpation & inspection: normal inspection of the chest Resp Effort & Inspection: normal respiratory effort and able to speak in complete sentences Telehealth Telehealth Telehealth Platform: Invoice2go Location of provider rendering services: practice address Location of patient: address on file Patient Identification confirmed using: Name, : Yes Telehealth method: video Patient verbally consented to treatment: Yes Patient verbally consented to billing insurance company: Yes Patient informed of any privacy concerns related to visit: Yes Minutes spent on Phone/Video with Pt.: 15 Assessment & Plan Assessment & Plan (1) Recurrent urinary tract infection: Comment: There are no prophylactic antibiotics that would be helpful Code(s): N39.0 - Urinary tract infection, site not specified Category: Medical (2) Staghorn calculus: Code(s): N20.0 - Calculus of kidney Category: Medical Plan Follow-up March Medications: New amoxicillin-pot clavulanate 500-125 mg (Augmentin) 1 tab PO Q8H 21 tabs 0RF 7 days N20.0 - Calculus of kidney, N39.0 - Urinary tract infection, site not specified Refilled fosfomycin tromethamine 3 grams PO Q7D 12 packets 0RF N39.0 - Urinary tract infection, site not specified Patient Instructions: This note is constructed using voice recognition software. While every effort has been made to ensure accuracy houseman errors may have been included. Imaging studies, laboratory and physical exam results were discussed and reviewed in detail. No major barriers to patient understanding were identified. An opportunity to ask questions regarding the treatment plan was provided. All questions were answered. The patient expressed understanding and agreement with the above treatment plan. The patient is aware they should contact our office by phone for worsening of their current condition or the appearance of new urologic symptoms. Compliance is encouraged with any medications and followup testing that is ordered. It is a privilege to participate in the urologic care of your patient. If you have any questions or concerns regarding treatment for the above conditions, or other urologic issues, please do not hesitate to contact me. The office telephone contact is [phone]. Sincerely, Dr Allen Lieberman MD, [place] [facility] - Urology Compassionate Specialist Care for the Genitourinary System Coding Level of Care Code Tele Est Pt Level 4 (30500) Complex EM visit Add On G2211 Diagnoses Recurrent urinary tract infection N39.0 Staghorn calculus N20.0
--- OUTSIDE RECORDS SUMMARY | 2024-12-13 16:52 | XMS_ITS | Continuity of Care Document ---
Author Organization NATHANIEL - [facility], [place] [address] 1st Floor Address [address] [place] [address] Care Team Providers Care Roofing Laborer Name Role Phone HANNAH DALTONSai Primary Care Provider Assessment Encounter Date Assessment Date Assessment LastModified by Organization Details LastModified Time 12/13/2024 12/13/2024 89-year-old adrhb-jqlh-dynh nant female presents today with a 2-month history of locking and pain of the left long finger and ring finger with findings most consistent with stenosing flexor tenosynovitis. I reviewed conservative treatment with her. I offered her cortisone injections into both digits and she wished to proceed. Follow-up in 6 weeks time for recheck, sooner if required. [email or web address] Not available 12/13/2024 09:10:14 Plan of Treatment Reminders Order Date Submit Date Provider Last Modified By Organization Details Last Modified Time Details Appointments NEW PATIENT 15 2024 08:45A M Cricket Tapia PA-C Not available Not available Not available RECHECK 15 2024 08:45A M Cricket Tapia PA-C Not available Not available Not available INJECTION ONLY 5 2024 08:00A José Manuel Mix PA-C Not available Not available Not available Lab None recorded. Referral None recorded. Procedures None recorded. Surgeries None recorded. Imaging XR, hand, 3 or more view - room 119 3V zee hands 2024 025 [email or web address] [facility], [address], [address], [place], [address], 12/13/2024 09:31:05 Medication Orders None recorded. Patient TargetsNo targets recorded. Patient InstructionsNo instructions recorded. Reason for Referral None Reported. Results Created Date Observation Date Name Description Value Unit Range Abnormal Flag Note LastModifiedBy Organization Detail LastModifiedTime 12/14/19 25 12/13/2024 XR, hand, 3 or more view http:/ [email or web address] ?Encry pted=s hAaTro YD8dLq bEUv6g %2BXZw aYqtaq 0bqfl% 2Fg9IQ a4ajBk vP9nXo QUaueC m3YtLR FvZlgJ JJ8mAn HZtai3 5r0398 AC0Kla HSFUaq jKiQtr MwF INTERFACE [facility] Office [address], [place], [address], 12/13/2024 08:50:57 12/14/19 25 12/13/2024 XR, hand, 3 or more view http:/ [email or web address] ?Encry pted=s hAaTro YD8dLq bEUv6g %2BXZw aYqtaq 0bqfl% 2Fg9IQ a4ajBk vP9nXo QUaueC m3YtLR FvZlgJ JJ8mAn HZtai3 4h9272 AC0Kla HSFUaq jKiQtr MwF INTERFACE [facility] [address] [address], [place], [address], 12/13/2024 08:50:59 Result Notes Documentation Provider Name and Address Organization Details Recorded Time Xr, Hand, 3 Or More View : [email or web address] Encrypted=gkNrZutEN7pVruS Uv6g%8APRqkYtlmc6qyuy%2Fg 1SGl8cvGzoP4jHpEQoblAk6Nt CIPeMjkWLX8lJgRTqyc95p897 8CW5UmnGBVEtwvAySdnLdW Not Available [facility] 12/13/2024 08:50: 58 Xr, Hand, 3 Or More View : [email or web address] Encrypted=wdClXnlLD2nWltZ Uv6g%3HTPphWuurx0xkpr%2Fg 4VKe0vmXwmB8tXpPDfwzQr2Qr BIWjApvASV7mTtXFtkx44p864 2XE9FiiEYHGcyrSzNbjKkJ Not Available [facility] 12/13/2024 08:51: 00 Problems Name Problem SNOMED Code Status Onset Date Resolution Date Notes Provider Name and Address Organization Details Recorded Time Pain of bilateral hands 611559546036 85325 Active 2024 Cricket Tapia PA-C [address], [place], [address] , [facility] 5 08:10:42 Triggerin g of digit 946054586 Active 2024 Cricket Tapia PA-C [address], [place], [address] , [facility] 5 09:10:32 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 Procedures Surgical History Date Name Laterality Status Provider Name and Address Organization Details Recorded Time 5 Tendon Sheath Kenalog Injection, L/R completed Cricket Tapia PA-C [address], [place], [address], [facility] 12/13/2024 09:09:44 5 Sports Shoulder 4&1 completed Kurt Mix PA-C [address], [place], [address], [facility] 12/06/2024 08:48:30 5 Sports Shoulder 4&1 completed Kurt Mix PA-C [address], [place], [address], [facility] 08/17/2024 14:38:08 4 Sports Shoulder 4&1 completed Kurt Mix PA-C [address], [place], [address], [facility] 05/12/2024 08:49:12 4 Sports Shoulder 4&1 completed Kurt Mix PA-C [address], [place], [address], [facility] 02/10/2024 10:25:11 4 Sports Shoulder 4&1 completed Kurt Mix PA-C [address] [facility], [place], [address], [facility] 09/16/2023 08:59:25 Imaging Results None recorded. Procedure Notes None recorded. Medical Equipment None Reported. Allergies No known drug allergies Medications Name Sig Start Date Stop Date [...] fosfomycin tromethamine 3 gram oral packet TAKE 3G BY MOUTH EVERY 7 DAYS active Not Available Not Available No [...] Not Available Not Available Not Available pseudoephedr sarah-angela sin ER 80-700 mg tablet,exten ded release [...] and Address Organization Details Last Updated DateTime 12/13/2024 160.02 cm 29.2 kg/m2 34663.74 g MOHINDER PHILLIP [place] - [facility] 12/13/2024 08:42:25 Social History None recorded. Functional Status None recorded. Mental Status None recorded. Family History Nothing Reported. Medical History No medical history recorded. Gynecological HistoryNo gynecological history recorded. Obstetrics History GPAL:G 0 P 0 0 0 0 Past Encounters Encounter ID Performer Location Encounter Start Date Encounter Closed Date Diagnosis/Indication Diagnosis SNOMED-CT Code Diagnosis ICD10 Code Diagnosis Note [id number] GEORGINA Blackmon 2nd floor [address] [place] [address] 12/06/2024 08:02:27 12/06/2024 08:49:05 Osteoarthritis of joint of left shoulder region 6010449871 39410 M19.913 [id number] GEORGINA Keith [address] [place] [address] 12/13/2024 08:36:03 12/13/2024 09:18:50 Pain of bilateral hands 9357716301 9623504 M79.641 M79.642 Triggering of digit 3859 84412 M65.332 M65.342 Health Concerns Section Related Observation LastModified by Organization Detai ls LastModified Time None Recorded Concern Status LastModified by Organization Details LastModified Time None Recorded Payers Encounter Date Sequence Insurance Name Policy Number Policy Medeiros Covered Member ID Medeiros Member ID Guarantor Name 12/13/2024 2 FOR LIFE () Elvia Hayes Peterson [id number] Elvia Hayes Peterson 12/13/2024 1 [place]IC[place]: [employer] Elvia Hayes Peterson [id number] Elvia S Peterson Notes Date Note Type Note Provider Name and Address Organization Details Recorded Time 12/13/2024 text/html I am seeing this patient under the supervision of Dr. Kelly who was available but who did not see the patient Chief Complaint: Bilateral hand pain HPI: 89-year-old spuju-kspw-sffuzca t female presents today with a 2-month history of catching and locking episodes of the long and ring finger of the left hand. She notes associated swelling. They have worsened over the past month. She has not had any significant treatment of this yet. Cricket Tapia PA-C [address], [place], [address], [facility] - [facility] 12/13/2024 09:18:48 OBGyn Episode No OBEpisode recorded.
== END 2024-12-13 15:49 | disposition home or self-care (01) ==
LOC: HO.HUSH 14:09
PROVIDERS: PCP Internal Medicine; Visit Provider Urology
DX: N39.0 Urinary tract infection, site not specified (principal); N20.0 Calculus of kidney
CPT/HCPCS: 99214; G2211

== ENCOUNTER 2025-01-25 12:59 | Outpatient (REF) | payer MEDICARE, OTHER, SELFPAY ==
--- OUTSIDE RECORDS SUMMARY | 2025-01-25 13:03 | XMS_ITS | Clinical Summary ---
Author Organization [facility] Address [address] [place] [address] Phone Care Team Providers Care Interior Assemblies Installer Name Role Phone Chris Madsen MD Primary Care Provider [phone] Allergies No known active allergies Social History Tobacco Use Types Packs/Day Years Used Date Smoking Tobacco: Never Assessed Comments Unknown Sex and Gender Information Value Date Recorded Sex Assigned at Not on file Legal Sex Female 7:29 PM EST Gender Identity Not on file Sexual Orientation Not on file Plan of Treatment Not on file Medical Devices Not on file Insurance [place] [id number] [facility] MEDICARE SUPPLEMENT MEDICARE PART A & B [facility] [employer] [facility] MEDICARE SUPPLEMENT MEDICARE PART A & B [facility] MEDICARE SUPPLEMENT MEDICARE PART A & B [facility] MEDICARE SUPPLEMENT MEDICARE PART A & B [facility] MEDICARE SUPPLEMENT MEDICARE PART A & B [facility] MEDICARE SUPPLEMENT MEDICARE PART A & B [place] MEDICARE SUPPLEMENT MEDICARE PART A & B [place] MEDICARE SUPPLEMENT MEDICARE PART A & B [facility] MEDICARE SUPPLEMENT Care Teams Interior Assemblies Installer Relationship Specialty Start Date End Date Chris Madsen MD PCP - General Internal Medicine 07/03/14 Additional Source Comments The information contained in this document represents components of the legal health record. It is not the complete legal health record.[facility]
== END 2025-01-25 13:00 | disposition home or self-care (01) ==
LOC: HO.SH 12:59
PROVIDERS: Visit Provider Nurse Practitioner Family
DX: Z01.118 Encounter for examination of ears and hearing with other abnormal findings (principal); H90.3 Sensorineural hearing loss, bilateral
CPT/HCPCS: 92552; 92556

== ENCOUNTER 2025-01-25 13:54 | Outpatient (REF) | payer SELFPAY | END 2025-01-25 13:55 | disposition home or self-care (01) | LOC: HO.HAP 13:54 | PROVIDERS: Visit Provider Nurse Practitioner Family | DX: Z46.1 Encounter for fitting and adjustment of hearing aid (principal); H90.3 Sensorineural hearing loss, bilateral | CPT/HCPCS: 92593 ==

== ENCOUNTER 2025-01-30 12:03 | Outpatient (REF) | payer SELFPAY ==
--- OUTSIDE RECORDS SUMMARY | 2025-01-30 12:58 | XMS_ITS | Clinical Summary ---
Author Organization [facility] Address [address] [place] [address] Phone Care Team Providers Care Spragger Name Role Phone Chris Madsen MD Primary Care Provider [phone] Allergies No known active allergies Social History [...] Insurance [place] [id number] [facility] MEDICARE SUPPLEMENT [facility] Address: [address] [address] MEDICARE PART A & B [facility] [employer] [facility] MEDICARE SUPPLEMENT [facility] Address: [address] [address] MEDICARE PART A & B [facility] MEDICARE SUPPLEMENT MEDICARE PART A & B [facility] MEDICARE SUPPLEMENT MEDICARE PART A & B [facility] MEDICARE SUPPLEMENT [facility] Address: [address] [address] MEDICARE PART A & B [facility] MEDICARE SUPPLEMENT [facility] Address: [address] [address] MEDICARE PART A & B [employer] MEDICARE SUPPLEMENT [facility] Address: [facility] [address] [place] [address] MEDICARE PART A & B [employer] MEDICARE SUPPLEMENT MEDICARE PART A & B [facility] MEDICARE SUPPLEMENT [facility] Address: [address] [address] Care Teams Spragger Relationship Specialty Start Date End Date Chris Madsen MD PCP - General Internal Medicine 07/03/14 Additional Source Comments The information contained in this document represents components of the legal health record. It is not the complete legal health record.[facility]
[2025-01-30 13:15] LABS: Appearance Urine Cloudy; Glucose Urine UA Negative (Negative); PH 6.5 (5.0-9.0); Specific Gravity - Urine 1.015 (1.005-1.025); UMIC TRIGGER UA YES
== END 2025-01-30 12:04 | disposition home or self-care (01) ==
LOC: HO.10HDLR 12:03
PROVIDERS: Visit Provider Urology
DX: N39.0 Urinary tract infection, site not specified (principal)
CPT/HCPCS: 81001; 87086; 87088; 87186

== ENCOUNTER 2025-02-07 13:12 | Outpatient (AMB) | payer MEDICARE, OTHER, SELFPAY ==
--- NOTE | 2025-02-07 13:17 | A.OFFVIS_ITS ---
Vital Signs 02/07/25 13:18 Height 5 ft 3 in Weight 161 lb 6.054 oz BMI 28.6 BP 110/56 L Blood Pressure Location Lt brachial Position Sitting Pulse 60 Pulse Source Pulse Oximeter Intake Visit Reasons: 3m follow up Intake Note: 3 mth f/up Electronic Specialist Required: No Accompanied by: Daughter Allergies hydroxyzine Allergy (Verified 12/13/24 14:16) Hives imipramine Allergy (Verified 12/13/24 14:16) Hives Medication List - Last Reconciled 02/07/[address] MD amoxicillin-pot clavulanate 500-125 mg (Augmentin) 1 tab PO Q8H 7 days aspirin (Adult Low Dose Aspirin) 81 mg PO DAILY atorvastatin 40 mg PO DAILY cholecalciferol (vitamin D3) 25 mcg PO DAILY clopidogrel 75 mg PO DAILY d-mannose 500 mg PO DAILY fosfomycin tromethamine 3 grams PO Q3D 3 doses fosfomycin tromethamine 1 packet PO Q OTHER DAY fosfomycin tromethamine 3 grams PO Q7D gabapentin 300 mg PO ONCE Lacto no.42-Crvuxi-VEA-larch 25B cell-25B cell-50 mg caps PO magnesium citrate 100 mg PO BID@0900,1800 metoprolol tartrate 12.5 mg (1/2 x 25 mg) PO BID nitrofurantoin monohyd/m-cryst 100 mg (Macrobid) 100 mg PO BID 7 days omeprazole 40 mg PO BID@0630,1630 vit C,F-Tk-mspcu-lutein-zeaxan 250-90-40-1 mg (PreserVision AREDS-2) 1 tab PO BID@0900,1800 HPI Comments Details: 89-year-old female who is here for follow-up. She was seen in the hospital when she presented with pneumonia and congestive heart failure. Echocardiography showed systolic anterior motion of mitral valve and left ventricular outflow tract obstruction and eqph-sj-dihglwol mitral valve regurgitation. She was clinically volume overloaded and in heart failure. She was diuresed and her vasodilators were stopped. She improved and was discharged home. She did well after that till recently when she started feeling dizzy and fatigued. She is feeling little spaced out and has been getting lightheaded feeling. Denying any significant shortness of breath but continues to get some chest discomfort which he has a pressure-like feeling. It appears these symptoms are worse when she has dizziness and LVOT obstruction. She is saying these episodes are prolonged but on discussing she is saying these last for 15-20 minutes with some confusion. I have explained to the patient and daughter that this will need further workup. Her lisinopril and amlodipine were discontinued while she was in the hospital. 04/13/2024: She is here for follow-up after recent admission to the hospital. She apparently had urinary tract infection and presented with syncope. She was treated with antibiotics and discharged home and then presented again with significant confusion and hypotension. She was fluid resuscitated and blood workup showed evidence of myocardial infarction. Echocardiography showed EF 30% with LAD territory wall motion abnormality. Her HS trop were as high as 60,000. She was conservatively treated and subsequently was discharged home. She is taking Plavix 75 mg daily and metoprolol tartrate 12.5 mg twice a day. She is on Lasix 40 mg daily. Clinically she is euvolemic. She is saying that she was feeling fine but as a few days ago she has been feeling very lousy and tired. She recently had urinalysis which is showing infection and she was called by urologist that she needs to start antibiotics which she is picking up today. 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 The daughter and the patient are here to discuss about that too. 07/17/2024: Elvia returns for follow-up. On last visit she was discussing about urological surgery for staghorn calculus. I told her that she is moderate to high-risk for surgery. I also told her that given dynamic LVOT obstruction the situation can be unpredictable at times with more obstruction happening with anesthesia. She was subsequently referred to ID to see if chronic suppression with antibiotics is a possibility but it appears she was not started on any antibiotics. She is currently taking fosfomycin through urology and she has been feeling better. She is more awake and interactive. She is still has some chest discomfort and shortness of breath with minimal exertion. Echocardiography performed on July 14 2024 showing EF 45-50% with elevated filling pressures with dynamic LVOT obstruction with severe obstruction with Valsalva with moderate asymmetric septal hypertrophy. LVOT gradient at rest 21 mm Hg which increases to 130 mm Hg with Valsalva. Anteroseptal wall and apex are hypokinetic. 10/23/2024: She is here for follow-up. She was sent to the he clinic for further assessment for dynamic LVOT obstruction. She underwent testing there which did not reveal significant gradient across the left ventricular outflow tract. She also had MRI performed we did not show any significant scar in the LAD territory. She underwent cardiac catheterization where severe LAD stenosis was noted and she underwent drug-eluting stent to the LAD. Since then she had chest discomfort has improved significantly. She continues to get some fatigue with activities. She is taking fosfomycin and has been doing well with that without any recent UTIs. 02/07/2025: She is here for follow-up. She has been on chronic suppression with fosfomycin but had breakthrough UTI and has been receiving antibiotic as per the daughter for the last couple of months. She has not been feeling energetic and gets tired easily. She is saying that she is able to do recumbent bike add cardiac rehabilitation but when she starts to walk she gets chest discomfort and shortness of breath. She said post PCI to LAD her symptoms improved significantly but with the recent infections she started feeling the above symptoms. No dizziness or syncope. No obvious bleeding. She is currently getting nitrofurantoin. [facility] Medical History Dynamic left ventricular outflow obstruction Non-ST elevation [place] (NSTEMI) NSTEMI (non-ST elevated myocardial infarction) Chronic diastolic heart failure Hyperlipidemia Hypertension Left bundle branch block Urge incontinence SEBASTIAN on CPAP Fibromyalgia Chronic polyneuropathy History of melanoma Asthma Diastolic dysfunction Surgical History Hx of cardiac cath Social History Household Members: Family Housing: House Do you presently have visiting nurse or other home services: No Unable to assess alcohol history related to: Unable to respond and Unknown Alcohol intake: former Patient Tobacco Use Status: Never used Tobacco Advance Directives Date on File: 12/27/23 service: No Review of Systems Const Denies chills, Denies fatigue, Denies fever(s), Denies frequent falls, Denies weakness, Denies weight gain and Denies weight loss ENT Denies dizziness Card Denies chest pain, Denies leg edema, Denies lightheadedness, Denies palpitations, Reports dyspnea and Reports dyspnea on exertion Resp Denies cough, Reports dyspnea and Reports dyspnea on exertion GI Denies hematochezia Musc Denies abnormal gait, Denies muscle weakness, Denies numbness, Denies radiating pain into limb and Denies tingling Neuro Denies abnormal gait, Denies dizziness, Denies frequent falls, Denies numbness, Denies tingling and Denies weakness Endo Denies fatigue and Denies palpitations Physical Exam Vital Signs: Last Vital Signs Pulse 60 02/07/25 13:18 BP 110/56 L 02/07/25 13:18 BMI result Body Mass Index 28.6 GENERAL APPEARANCE: in no acute distress. NECK: no carotid bruit, no jugular venous distention. SKIN: no suspicious lesions, warm and dry. HEART: Systolic murmur left parasternal border, regular rate and rhythm. LUNGS: clear to auscultation bilaterally. ABDOMEN: soft, nontender. EXTREMITIES: no edema. PERIPHERAL PULSES: equal. NEUROLOGIC: No gross deficits, AAO X 3 Assessment & Plan Assessment & Plan (1) Ischemic cardiomyopathy: Code(s): I25.5 - Ischemic cardiomyopathy Category: Medical (2) Dynamic left ventricular outflow obstruction: Code(s): I51.89 - Other ill-defined heart diseases Category: Medical (3) Left bundle branch block: Code(s): I44.7 - Left bundle-branch block, unspecified Category: Medical Plan 89-year-old female who is here for follow-up. She has background history of recurrent UTI and dynamic LVOT obstruction. Her peak gradient across the left ventricular outflow tract with Valsalva was 130 mm Hg during 1 of her hospitalizations. She had NSTEMI with LAD territory wall motion abnormality in the setting of sepsis and hypotension. She was conservatively treated at that time. Subsequently referred to [facility] and underwent further testing there including diagnostic cardiac catheterization. She was found to have severe LAD stenosis which was stented. By their assessment she did not have significant left ventricular outflow tract obstruction. I think she is very sensitive to sepsis/infection. When she is really sick with sepsis/vasodilation she gets dynamic LVOT obstruction. She was started on chronic suppression therapy with fosfomycin and did well for few months but more recently she has been getting breakthrough UTIs. She is quite symptomatic after the urinary tract infection with fatigue, shortness of breath and chest discomfort with activities. No bleeding reported by the patient. Detailed discussion with the patient and daughter. I think she is getting worse due to recurrent infections. Obviously with her stenting done 4 months ago, interrupting dual antiplatelet therapy is a challenge too because there is risk of stent thrombosis. I think if she does not clear up the infections and continues to require antibiotics then the risk/benefit moist were probably interrupting her antiplatelets and performing surgery earlier. Obviously there is risk but I think in any case there will be some risk involved. I have explained this to the patient and her daughter in great detail. I have also advised her to keep herself well hydrated. Continue antibiotics and same medications for now. Follow-up in 3 months. Thank you for allowing me to participate in the care of your patient. Please f eel free to contact me if you have any questions. Coding Level of Care Code Est Pt Level 4 (50083) Diagnoses Ischemic cardiomyopathy I25.5 Dynamic left ventricular outflow obstruction I51.89 Left bundle branch block I44.7
[2025-02-07 13:18] VITALS: BP 110/56; PULSE 60; BMI 28.6
--- OUTSIDE RECORDS SUMMARY | 2025-02-07 14:03 | XMS_ITS | Clinical Summary ---
Author Organization [facility] Address [address] [place] [address] Phone Care Team Providers Care Window Glass Cutter Off Name Role Phone Chris Madsen MD Primary Care Provider Allergies No known active allergies Social History [...] Insurance [place] PART A & [place] [id number] [facility] MEDICARE SUPPLEMENT MEDICARE PART A & B [facility] [email or web address] [facility] MEDICARE SUPPLEMENT MEDICARE PART A & B [facility] [employer] MEDICARE SUPPLEMENT MEDICARE PART A & B [facility] [employer] MEDICARE SUPPLEMENT MEDICARE PART A & B [facility] [employer] MEDICARE SUPPLEMENT MEDICARE PART A & B [facility] [employer] MEDICARE SUPPLEMENT MEDICARE PART A & B [employer] MEDICARE SUPPLEMENT MEDICARE PART A & B [employer] MEDICARE SUPPLEMENT MEDICARE PART A & B [facility] [employer] MEDICARE SUPPLEMENT Care Teams Window Glass Cutter Off Relationship Specialty Start Date End Date Chris Madsen MD PCP - General Internal Medicine 07/03/14 Additional Source Comments The information contained in this document represents components of the legal health record. It is not the complete legal health record.[facility]
== END 2025-02-07 14:17 | disposition home or self-care (01) ==
LOC: HO.HCS 13:12
PROVIDERS: PCP Internal Medicine; Visit Provider Internal Medicine Cardiovascular Disease
DX: I25.5 Ischemic cardiomyopathy (principal); I51.89 Other ill-defined heart diseases; I44.7 Left bundle-branch block, unspecified
CPT/HCPCS: 99214

== ENCOUNTER → 2025-02-07 13:12 | Outpatient (BNVA) | payer MEDICARE, OTHER, SELFPAY | PROVIDERS: PCP Internal Medicine; Visit Provider Internal Medicine Cardiovascular Disease | DX: I25.5 Ischemic cardiomyopathy (principal); I44.7 Left bundle-branch block, unspecified; I51.89 Other ill-defined heart diseases | CPT/HCPCS: 99212 ==

== ENCOUNTER 2025-04-09 09:33 | Day surgery (SDC) | payer MEDICARE, OTHER, SELFPAY ==
[2025-04-05 10:11] VITALS: BMI 28.3
--- NOTE | 2025-04-05 14:08 | HO.ANESPROP2 ---
HPI - Anesthesia Eval Consult details Narrative: 89yo F for Left Cystoscopy, Ureteroroscopy, Retro, Laser,with possible stent Follows [facility] Cardiology for CAD, NSTEMI, s/p LAD stenting 10/05/2024 at [facility], [facility] (also eval'd at [facility] notes mild outflow obstruction). Optimized per workload, but high risk - ok to hold plavix, but asa should not be stopped Last office visit 01/2025. Per office visit note: 10/23/2024: She is here for follow-up. She was sent to the he clinic for further assessment for dynamic LVOT obstruction. She underwent testing there which did not reveal significant gradient across the left ventricular outflow tract. She also had MRI performed we did not show any significant scar in the LAD territory. She underwent cardiac catheterization where severe LAD stenosis was noted and she underwent drug-eluting stent to the LAD. Since then she had chest discomfort has improved significantly. She continues to get some fatigue with activities. She is taking fosfomycin and has been doing well with that without any recent UTIs. 02/07/2025: She is here for follow-up. She has been on chronic suppression with fosfomycin but had breakthrough UTI and has been receiving antibiotic as per the daughter for the last couple of months. She has not been feeling energetic and gets tired easily. She is saying that she is able to do recumbent bike add cardiac rehabilitation but when she starts to walk she gets chest discomfort and shortness of breath. She said post PCI to LAD her symptoms improved significantly but with the recent infections she started feeling the above symptoms. No dizziness or syncope. No obvious bleeding. She is currently getting nitrofurantoin. Per doc, pt does stationary bike at cardiac rehab and works with resident athletic trainer for strength exercise Case [facility] Active Problems Active Problems: All Active Problems S/P coronary angioplasty (Acute) Ischemic cardiomyopathy (Acute) Staghorn calculus (Acute) Recurrent urinary tract infection (Acute) Acute UTI (Acute) Acute hypoxemic respiratory failure (Acute) Acute exacerbation of congestive heart failure (Acute) Community acquired pneumonia (Acute) Left bundle branch block (Acute) Dynamic left ventricular outflow obstruction (Acute) Past Medical History Medical History Dynamic left ventricular outflow obstruction Non-ST elevation [place] (NSTEMI) NSTEMI (non-ST elevated myocardial infarction) Chronic diastolic heart failure Hyperlipidemia Hypertension Left bundle branch block Urge incontinence SEBASTIAN on CPAP Fibromyalgia Chronic polyneuropathy History of melanoma Asthma Diastolic dysfunction Surgical History Surgical History History of coronary artery stent placement Hx of cardiac cath Social History Social History Household Members: Children Housing: House Are you a primary career advisor to a significant other at home: No Do you presently have visiting nurse or other home services: No Alcohol intake: former Patient Tobacco Use Status: Never used Tobacco Advance Directives Date on File: 12/27/23 service: No Meds Allergies Allergy/AdvReac Type Severity Reaction Status Date / Time hydroxyzine Allergy Hives Verified 04/09/25 10:40 imipramine Allergy Hives Verified 04/09/25 10:40 Home Medications ?Medication ?Instructions ?Recorded ?Confirmed ?Last Taken ?Type vit C 250 mg-vit E 90 mg-zinc 40 1 tab PO BID@0900,1800 12/27/23 04/09/25 04/08/25 History mg-copper 1 oh-uppgux-ighizo capsule (PreserVision AREDS-2) atorvastatin 40 mg tablet 40 mg PO DAILY 02/29/24 04/09/25 04/09/25 History magnesium citrate 100 mg tablet 100 mg PO BID@0900,1800 03/03/24 04/09/25 04/08/25 History gabapentin 300 mg capsule 300 mg PO DAILY@1800 07/17/24 04/09/25 04/08/25 History Lactobacillus 25 billion 1 cap PO DAILY 10/23/24 04/09/25 04/08/25 History cell-Bifido 25 billion wizg-QID-elltj capsule aspirin 81 mg tablet,delayed 81 mg PO DAILY 10/23/24 04/09/25 04/08/25 History release (Adult Low Dose Aspirin) cholecalciferol (vitamin D3) 25 25 mcg PO DAILY 10/23/24 04/09/25 04/08/25 History mcg (1,000 unit) capsule fosfomycin tromethamine 3 gram 3 g PO TU 04/09/25 04/09/25 04/03/25 History oral packet metoprolol tartrate 25 mg tablet 12.5 mg PO BID@0900,1800 04/09/25 04/09/25 04/09/25 History Exam Height,Weight and Vital Signs: Height 5 ft 3 in Weight 72.575 kg Narrative Narrative: [facility] 09/2024 ECHO 08/2024 EKG 10/2024 Details: Sinus bradycardia 56 beats per minute left bundle-branch block, QTC 445 milliseconds. ECHO 06/2024 Conclusions: - 1. Mildly reduced LV ejection fraction 45-50 % with elevated filling pressures with dynamic LVOT obstruction with severe obstruction with Valsalva with moderate asymmetric septal hypertrophy 2. Moderately dilated left atrium 3. Calcific aortic and mitral valve changes noted with mild-to moderate mitral regurgitation 4. Normal RV systolic pressure 5. No gross pericardial effusion Assessment and Plan Assessment Anesthesia Assessment: Chart Reviewed
[2025-04-09] VITALS (9 sets, daily range): BP systolic 152–195; BP diastolic 63–86; PULSE 50–71; RESP 12–20; TEMP 36.1–36.8; O2SAT 89–100; BMI 29.0
--- NOTE | ~2025-04-09 | FL_ITS ---
EXAMINATION: XR FLUOROSCOPY WITH IMAGES CLINICAL INFORMATION: Left stone COMPARISON: CT abdomen 03/03/2024 TECHNIQUE: Fluoroscopy provided to: Dr. Lieberman Fluoroscopy time: 34.2 seconds DAP: 3.5 mGycm2 Images: 4 FINDINGS: Fluoroscopy provided to Dr. Lieberman for urological procedure. Multiple procedure images. Placement of left ureteral stent. See surgical procedure report.. FL/FL guidance in OR IMPRESSION: As above Electronically signed by: Jose Eduardo Bird MD 04/09/2025 03:54 PM EDT
[2025-04-09] MEDS: Lactated Ringers 1,000 ML 50 ML IVCONT ×2 (10:48→17:37)
[2025-04-09 11:02] LABS: Anion Gap 12 (12-20); Blood Urea Nitrogen 39 mg/dL (9-16); Calcium 9.0 mg/dL (8.4-10.2); Carbon Dioxide 24 mmol/L (22-29); Chloride 114 mmol/L (96-108); Creatinine Clr Calc Pharmacy 33.5; Estimated Glomerular Filt Rate 47; Potassium 4.2 mmol/L (3.3-5.1); Sodium 146 mmol/L (135-145)
[2025-04-09 11:04] LABS: Hematocrit 28.0 % (37.0-47.0); Hemoglobin 8.5 g/dl (12.0-16.0); Mean Corpuscular HGB Conc 30.4 g/dl (31.0-35.0); Mean Corpuscular Hemoglobin 28.5 pg (27.0-33.0); Mean Corpuscular Volume 94.0 fL (80.0-98.0); NRBC Abs Auto 0.000 X10*3/uL (0.0-0.012); NRBC Pct Auto 0.0 /100WBC (0.0-0.2); Platelet Count 155 X10*3/uL (160-400); Red Blood Count 2.98 X10*6/uL (4.20-5.50); White Blood Count 5.4 X10*3/uL (4.8-10.8)
--- NOTE | 2025-04-09 12:40 | PC.NURSE ---
Dr. Lieberman aware that patient stopped ASA 81 mg one week ago and stopped Plavix 12 days ago, instead of 5 days ago as instructed. Stated he will restart patient on it and she is going to be staying overnight. per Dr. Lieberman okay to proceed. Dr. Roberts updated as well.
--- NOTE | 2025-04-09 13:20 | MHC.SHP ---
Pre-Procedural Eval Section A - 24 Hr Update-Section A only Date of Service: 04/09/25 The patient is an INPATIENT: No Changes since office visit: No Cold of Flu in the past 2 weeks, No New Medical Problems, No Changes in Medication and No Patient answered all questions The patient has been examined within 24 hours of the surgical procedure. The History & Physical has been completed within 30 days and I have reviewed it.: Yes Section B - Complete if H&P > 30 days Chief Complaint: Calculus of kidney Details of Present Illness: Cystoscopy, left retrograde, left ureteroscopy with laser lithotripsy stent placed Relevant Family History (Specify if Yes): No Relevant Social History: None Present Medications: None Medical History: No relevant PMH History of Previous Operations: No relevant previous surgery Allergies: Allergies Allergy/AdvReac Type Severity Reaction Status Date / Time hydroxyzine Allergy Hives Verified 04/09/25 10:40 imipramine Allergy Hives Verified 04/09/25 10:40 Review of Systems Sugical H&P ROS: Negative: Constitution, Cardiovascular, Respiratory, Neurological, Psychiatric, Hem-Onc, Allergic/Immunologic, Gastrointestinal, Genitourinary, Musculoskeletal, Integumentary, Endocrine and Eyes/Ears/Nose/Throat Exam Surgical H&P Exam: Normal: HEENT, Normal: Heart, Normal: Lungs, Normal: Extremities, Normal: Abdomen, Normal: Skin and Normal: Neurological Plan Diagnosis/Plan: Unchanged I have reviewed the history and physical and performed a pertinent physical examination on my patient. No changes have occurred unless specified. Time Spent With Patient Time: Total time managing care of this patient today ____ minutes.
--- NOTE | 2025-04-09 13:20 | MHC.SHP ---
Pre-Procedural Eval Section A - 24 Hr Update-Section A only Date of Service: 04/09/25 The patient is an INPATIENT: No Changes since office visit: No Cold of Flu in the past 2 weeks, No New Medical Problems, No Changes in Medication and No Patient answered all questions The patient has been examined within 24 hours of the surgical procedure. The History & Physical has been completed within 30 days and I have reviewed it.: No Section B - Complete if H&P > 30 days Chief Complaint: Calculus of kidney Details of Present Illness: Persistent urinary tract infection from presumed left renal stone. Plan cystoscopy, left retrograde, left ureteroscopy with laser lithotripsy and stent placement Relevant Family History (Specify if Yes): No Relevant Social History: None Present Medications: see Short Stay Collaborative assessment Medical History: No relevant PMH History of Previous Operations: No relevant previous surgery Allergies: Allergies Allergy/AdvReac Type Severity Reaction Status Date / Time hydroxyzine Allergy Hives Verified 04/09/25 10:40 imipramine Allergy Hives Verified 04/09/25 10:40 Review of Systems Sugical H&P ROS: Negative: Constitution, Cardiovascular, Respiratory, Neurological, Psychiatric, Hem-Onc, Allergic/Immunologic, Gastrointestinal, Genitourinary, Musculoskeletal, Integumentary, Endocrine and Eyes/Ears/Nose/Throat Exam Surgical H&P Exam: Normal: HEENT, Normal: Heart, Normal: Lungs, Normal: Extremities, Normal: Abdomen, Normal: Skin and Normal: Neurological Plan Diagnosis/Plan: Unchanged I have reviewed the history and physical and performed a pertinent physical examination on my patient. No changes have occurred unless specified. Time Spent With Patient Time: Total time managing care of this patient today ____ minutes.
--- NOTE | 2025-04-09 13:46 | PC.NURSE ---
Daughter, Jayna Romero, updated at this time that patient just went into the OR.
--- NOTE | 2025-04-09 15:24 | W.PM.OPN ---
Operative Note Operative Note Date of Service: 04/09/25 Narrative: PreOperative Diagnosis: Left staghorn calculus with 2 stone - 1x2 cm stone, 1.2 cm stone Post Operative Diagnosis: Infected left staghorn calculus Procedure: - cystoscopy, left retrograde - left dilatation of ureteric orifice under fluoroscopy - left ureteroscopy, laser lithotripsy, stone basketing - using a steerable vacuum sheath and disposable flexible ureteral scope - modifier 22 on 100% longer than typical - left stent placement Surgeon: Dr Allen Lieberman Anesthesia: General Indications for procedure: Initial presentation to hospital with recurrent urinary tract infection and possible upper tract infection. Imaging showed large stone burden on upper pole left kidney. Managed conservatively with antibiotics. Over time decision made to proceed with stone removal. Was offered percutaneous nephrostomy versus possible staged ureteroscopy. Given age and other comorbidities options selective was staged ureteroscopy. Clearance has been given by Cardiology. Procedure: After informed consent was verified patient was brought to the operating placed in supine position. Anesthesia was administered per protocol. Patient was placed in modified dorsal lithotomy position and prepped and draped in a sterile fashion. Safety pause time-out and side of surgery confirmed. Antibiotics confirmed. A 22 Kuwaiti cystoscope was inserted per urethra. The urethra and bladder were normal in their entirety. Both ureteric orifices were in normal position. The left ureteric orifice was cannulated and a retrograde examination was performed. Filling defect in upper pole.. A Sensor guidewire was placed up to the level of the renal pelvis under fluoroscopy. Debris with clearly question of purulent material started to expel around wire. The rigid cystoscope was removed. Four Kuwaiti open-ended ureteric catheter placed over the wire into the upper pole. Aspiration performed. Fluid sent for culture. Area was flushed with saline. The rigid cystoscope was removed. The inner cannula of steerable vacuum ureteric access sheath was used under fluoroscopy to dilate the ureteric orifice. The ureteric access sheath was placed and the inner cannula with access wire removed. The disposable digital flexible ureteral scope was placed. The steerable vacuum access sheath was connected to suction. A stone was encountered in the upper pole. There was significant biofilm around the stone. Using the Olympus Thulium laser and a 200 micron fiber general dusting was performed on the stone. This took significantly longer than typical 100% longer proximally 45 minutes. We alternated between short and long dusting protocol. On a number of separate occasions we removed the scope and re-irrigated with a 4 Kuwaiti open catheter. The 2nd stone was seen behind the 1st stone. Significant stone burden was buried into the sidewall of the calyx and had to be freed using the laser. The 1.9 Kuwaiti open-ended basket was used on occasions to try to remove debris and allow improved access to the stone area. We alternated backwards and forwards between the basket and the laser to break down more stone debris. We positioned the vacuum sheath so stone debris was sucked into the opening of the sheath and using the laser was broken down and removed. This continued t until the remaining debris was powdered and small stone fragments within clots which were difficult to remove. A decision was made to leave a stent At the completion of the stone procedure a Sensor wire was placed back into the renal pelvis. A 6 Kuwaiti by 22 cm double-J stent was placed into the renal pelvis and bladder under a combination of fluoroscopy and direct visualization. The symphisis pubis was used as a radiographic marker to release the stent and good coil was seen within the bladder confirming position. Proximal positioning of the stent was confirmed using fluoroscopy. The bladder was emptied. The patient tolerated the procedure well and was extubated in the operating room, and transferred in stable condition to the recovery area. Pathology: Stone debris Drains: Drain as [facility] describes cystourethroscopy, with ureteroscopy and/or pyeloscopy, with lithotripsy, and ureteral catheterization for steerable vacuum aspiration of the kidney, collecting system, ureter, bladder, and urethra if applicable (must use a steerable ureteral catheter).
--- NOTE | 2025-04-09 17:38 | PHA.MEDREC ---
Addendum entered by Niesha Landry formerly [facility] 04/09/25 18:31: REVIEWED BY PHARMACIST Original Note: Pharmacy Consult ? Medication Reconciliation Pharmacy has completed the medication reconciliation. Spoke with pt and she was a poor historian (was able to negrito confirm meds but when I started asking her about them she got confused) and said to call her daughter (Jayna Romero [phone]). I called and spoke with pt daughter and she confirmed the pt medications; pt takes her medications daily @0900 & 1600, she takes Fosfomycin 3g once a week on Tuesdays (LT 04/03), pt takes her Metoprolol 25mg tabs 1/2 tab (12.5mg) BID, pt takes Gabapentin 300mg caps once at bedtime (claims shows LF 07/20 for 90 days QTY 270 and pt no longer taking Gemtesa and daughter states pt urologist stopped it about a year ago, despite claims stating she has been getting it through mail order and last got it 01/25 for 90 days.
[2025-04-09] MEDS: Metoprolol Tartrate 12.5 MG HALFTAB PO (21:17)
[2025-04-10 04:00] VITALS: BP 137/60; PULSE 59; RESP 18; TEMP 36.4; O2SAT 97
[2025-04-10 07:44] VITALS: BP 124/59; PULSE 55; RESP 16; TEMP 36.8; O2SAT 97
[2025-04-10] MEDS: Aspirin Enteric Coated 81 MG TABLET.DR PO (08:18)
--- NOTE | 2025-04-10 08:39 | HO.POSTANES ---
Post Anesthesia Evaluation Post Anesthesia Evaluation Date of Service: 04/10/25 Vital Signs: Vital Signs Temp Pulse Resp BP Pulse Ox O2 Del Method O2 Flow Rate 04/10/25 07:44 98.2 F 55 16 124/59 L 97 Nasal Cannula 2.0 04/10/25 04:00 97.6 F 59 18 137/60 97 Nasal Cannula 2 04/09/25 21:18 97 Nasal Cannula 2 Anesthesia: General Mental Status: Awake Pain Control: Satisfactory Nausea/Vomiting: None Hydration: Adequate Anesthesia-Related Issues: No Anes. Related Issues
--- NOTE | 2025-04-10 10:39 | MHC.CM.PN ---
pt lives with daughter is indepedent has own ride home not exoected to need services whn arabellad
--- NOTE | 2025-04-10 12:44 | PC.NURSE ---
pt understand's d/c, no questions, dgt to transport via w/c, IV out at this time.
== END 2025-04-10 13:44 | disposition home or self-care (01) ==
LOC: HO.SSS 09:33 → HO.S3 15:54
PROVIDERS: Nurse Practitioner; PCP Internal Medicine; Visit Provider Urology
PROC: (CPT 52356; principal; 2025-04-09 13:20)
DX: N20.0 Calculus of kidney (principal); N39.0 Urinary tract infection, site not specified; B96.20 Unspecified Escherichia coli [E. coli] as the cause of diseases classified elsewhere; I11.0 Hypertensive heart disease with heart failure; I50.32 Chronic diastolic (congestive) heart failure; I25.2 Old myocardial infarction; I44.7 Left bundle-branch block, unspecified; E78.5 Hyperlipidemia, unspecified; G62.9 Polyneuropathy, unspecified; J45.909 Unspecified asthma, uncomplicated; M79.7 Fibromyalgia; G47.33 Obstructive sleep apnea (adult) (pediatric); Z85.820 Personal history of malignant melanoma of skin; Z79.82 Long term (current) use of aspirin; Z79.899 Other long term (current) drug therapy; Z88.8 Allergy status to other drugs, medicaments and biological substances
CPT/HCPCS: 52356; 36415; 80048; 82365; 85027; 87070; 87077; 87186; 87205; 88300; C1758; C1769; C2617; J0131; J0360; J1100; J1885; J1956; J2003; J2405; J2704; J3010; J7120; Q9967

== ENCOUNTER → 2025-04-09 09:33 | Outpatient (BNV) | payer MEDICARE, OTHER, SELFPAY | PROVIDERS: PCP Internal Medicine; Visit Provider Urology | DX: N20.0 Calculus of kidney (principal) | CPT/HCPCS: 52356; 74420 ==

== ENCOUNTER 2025-04-30 10:15 | Day surgery (SDC) | payer MEDICARE, OTHER, SELFPAY ==
--- OUTSIDE RECORDS SUMMARY | 2025-04-19 07:58 | XMS_ITS | Data Portability ---
Author Organization NATHANIEL Evaristo Dominguez [facility], [facility] Address [address] [place] [address] Care Team Providers Care Clinical Trials Assistant Name Role Phone REJI DALTON Primary Care Provider [phone] Assessment Encounter Date Assessment Date Assessment LastModified by Organization Details LastModified Time 12/13/2024 12/13/2024 89-year-old igbbk-vrbp-abgx nant female presents today with a 2-month [...] Organization Details Last Modified Time Details Appointments INJECTION ONLY 5 2024 08:25A José Manuel Mix PA-C Not available Not available Not available Lab None recorded. Referral None recorded. Procedures None recorded. Surgeries None recorded. Imaging XR, hand, 3 or more view - room 119 3V zee hands 2024 025 [facility] [facility], [address], [facility] [address], [place], [address], 12/26/2024 11:42:04 Medication Orders None recorded. Patient TargetsNo targets recorded. Patient InstructionsNo instructions recorded. Reason for Referral None Reported. Results Created Date Observation Date Name Description Value Unit Range Abnormal Flag Note LastModifiedBy Organization Detail LastModifiedTime 12/14/1912/13/2024 XR, hand, 3 or more view http:/ [email or web address] ?Encry pted=s hAaTro YD8dLq bEUv6g %2BXZw aYqtaq 0bqfl% 2Fg9IQ a4ajBk vP9nXo QUaueC m3YtLR FvZlgJ JJ8mAn HZtai3 8h6495 AC0Kla HSFUaq jKiQtr MwF INTERFACE [facility] [address] [facility] [address], [place], [address], 12/13/2024 08:50:57 12/14/1912/13/2024 XR, hand, 3 or more view http:/ [email or web address] ?Encry pted=s hAaTro YD8dLq bEUv6g %2BXZw aYqtaq 0bqfl% 2Fg9IQ a4ajBk vP9nXo QUaueC m3YtLR FvZlgJ JJ8mAn HZtai3 8t1158 AC0Kla HSFUaq jKiQtr MwF INTERFACE [facility] [address] [address], [place], [address], 12/13/2024 08:50:59 Result Notes Documentation Provider Name and Address Organization Details Recorded Time Xr, Hand, 3 Or More View : [email or web address]? Encrypted=alQtHddSR0nCelR Uv6g%6DLIkyKdrpl0lyke%2Fg 0FGv8wsSjsD0iVgYPhbnCf5Ko OVCxVcaLPU6vObATzja36d121 0GM5MzrOEWGqydApVspYgY Not Available [facility] 12/13/2024 08:50: 58 Xr, Hand, 3 Or More View : [email or web address]? Encrypted=nzYqKcxAF0aVhmK Uv6g%2AGFoaWpwvj7tvlc%2Fg 5EIy9ziYcvL1cUiDNppkOf8Kt FKEcFgfAMH5oCrWBssh20v708 0EY3SefWKVDddwQhKpaRcV Not Available [facility] 12/13/2024 08:51: 00 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 404287441143 104 Active 2016 Problem Code: M75.42; Problem Code Type: ICD-10; Status: 'A'; Not Available [facility] 4 11:58:04 Impingeme nt syndrome of right shoulder region 352215908094 102 Active 2016 Problem Code: M75.41; Problem Code Type: ICD-10; Status: 'A'; Not Available [facility] 4 11:58:04 Pain of bilateral hands 151117989805 33067 Active 2024 Cricket Tapia PA-C [address] [facility], [place], [address] , [facility] 5 08:10:42 Triggerin g of digit 293442449 Active 2024 Cricket Tapia PA-C [address] [facility], [place], [address] , [facility] 5 09:10:32 Problem Notes None recorded. Procedures Surgical History Date Name Laterality Status Provider Name and Address Organization Details Recorded Time 5 Sports Shoulder 4&1 completed Kurt Mix PA-C [address] [facility], [place], [address], [facility] 03/06/2025 10:31:33 5 Tendon Sheath Kenalog Injection, L/R completed Cricket Tapia PA-C [address] [facility], [place], [address], [facility] 12/13/2024 09:09:44 5 Sports Shoulder 4&1 completed Kurt Mix PA-C [address] [facility], [place], [address], [facility] 12/06/2024 08:48:30 5 Sports Shoulder 4&1 completed Kurt Mix PA-C [address] [facility], [place], [address], [facility] 08/17/2024 14:38:08 4 Sports Shoulder 4&1 completed Kurt Mix PA-C [address] [facility], [place], [address], [facility] 05/12/2024 08:49:12 4 Sports Shoulder 4&1 completed Kurt Mix PA-C [address] [facility], [place], [address], [facility] 02/10/2024 10:25:11 4 Sports Shoulder 4&1 completed Kurt Mix PA-C [address] [facility], [place], [address], [facility] [...] active Not Available Not Available Not Available sulfamethoxa zole 800 mg-trimethop rim 160 mg tablet TAKE 1 TABLET BY MOUTH TWICE DAILY FOR 5 DAYS active Not Available Not Available No t Available omeprazole 40 mg capsule,domonique yed release [...] Not Available Not Available Not Available amoxicillin 500 mg-potassium clavulanate 125 mg tablet TAKE 1 TABLET BY MOUTH EVERY 8 HOURS FOR 7 DAYS active Not Available Not Available No t Available neomycin 3.5 mg/g-polymyx in B 10,000 unit/g-dexam eth 0.1 % eye oint active Not Available Not Available Not Available metoprolol tartrate 25 mg tablet TAKE 0.5 TABLET BY MOUTH TWICE DAILY active Not Available Not Available No t Available nitrofuranto in monohydrate/ macrocrystal s 100 mg capsule TAKE 1 CAPSULE BY MOUTH TWICE DAILY FOR 7 DAYS WITH FOOD active Not Available Not Available No t [...] and Address Organization Details Last Updated DateTime 08/18/2024 160.02 cm 29.2 kg/m2 98140.74 g Kurt Mix PA-C [address], [place], [address], [facility] 08/18/2024 08:25:02 Date Recorded Body height Body mass index (BMI) Body weight Provider Name and Address Organization Details Last Updated DateTime 12/06/2024 160.02 cm 29.2 kg/m2 81496.74 g Joann Mcclendon [facility] 12/06/2024 08:05:41 Date Recorded Body height Body mass index (BMI) Body weight Provider Name and Address Organization Details Last Updated DateTime 12/13/2024 160.02 cm 29.2 kg/m2 80253.74 g MOHINDER PHILLIP [facility] 12/13/2024 08:42:25 Date Recorded Body height Body mass index (BMI) Body weight Provider Name and Address Organization Details Last Updated DateTime 02/28/2025 160.02 cm 29.2 kg/m2 17075.74 g DEXTER CRUZ [facility] 02/28/2025 13:13:25 Date Recorded Body height Body mass index (BMI) Body weight Provider Name and Address Organization Details Last Updated DateTime 03/07/2025 160.02 cm 29.2 kg/m2 76444.74 g Joann Mcclendon [facility] 03/07/2025 08:05:34 Social History None recorded. Functional Status None recorded. Mental Status None recorded. Family History Nothing Reported. Medical History No medical history recorded. Gynecological HistoryNo gynecological history recorded. Obstetrics History GPAL:G 0 P 0 0 0 0 Past Encounters Encounter ID Performer Location Encounter Start Date Encounter Closed Date Diagnosis/Indication Diagnosis SNOMED-CT Code Diagnosis ICD10 Code Diagnosis IMO Codes Diagnosis Note [id number] Peter Maria Del Rosario, PA-C [facility] [address] [place] [address] 09/16/2023 08:41:37 09/16/2023 10:55:38 Osteoarthritis of joint of left shoulder region 9569210055 [facility] M19.249 [id number] GEORGINA [facility] [address] [place] [address] 02/10/2024 09:45:50 02/10/2024 10:58:53 Osteoarthritis of joint of left shoulder region 7039892818 [facility] M19.590 [id number] GEORGINA [facility] [address] [place] [address] 05/12/2024 08:07:47 06/18/2024 06:13:02 Osteoarthritis of joint of left shoulder region 7566292268 [facility] M19.248 [id number] Kurt Mix PA-C [facility] [address] [place] [address] 08/18/2024 08:16:09 09/07/2024 15:42:43 Osteoarthritis of joint of left shoulder region [id number] [facility] M19.864 [id number] GEORGINA BlackmonA - [facility] [address] [place] [address] 12/06/2024 08:02:27 12/21/2024 15:51:21 Osteoarthritis of joint of left shoulder region 4443297782 [facility] M19.146 [id number] Cricket Tapia PA-C [facility] [address] [place] [address] 12/13/2024 08:36:03 12/26/2024 11:42:04 Pain of bilateral hands 7028055670 4352137 M79.641 M79.642 31596603 Triggering of digit 2399 86168 M65.332 M65.011 5904339 [id number] Shay Wray PA-C [facility] [address] [place] [address] 02/28/2025 13:05:15 03/08/2025 11:25:42 [id number] GEORGINA [address] [address] [place] [address] 03/07/2025 07:52:58 03/19/2025 11:43:26 Osteoarthritis of joint of left shoulder region 7475740110 01935 M19.438 [id number] Health Concerns Section Related Observation LastModified by Organization Detai ls LastModified Time None Recorded Concern Status LastModified by Organization Details LastModified Time None Recorded Advance Directives Directive None Recorded Payers Insurance Date Sequence Insurance Name Policy Number Policy Medeiros Covered Member ID Medeiros Member ID Guarantor Name 03/19/2025 2 FOR LIFE () Elvia Winkler [id number] Elvia Winkler 03/07/2025 1 [place]IC[place] [employer] Elvia Winkler [id number] Elvia Winkler Notes Date Note Type Note Provider Name and Address Organization Details Recorded Time 08/18/2024 text/html I am seeing the patient today under the supervision of Dr. Nava who was available but who did not see the patient. HPI: Patient returns for follow-up of left shoulder pain. Patient has noted degenerative rotator cuff disease of the left shoulder. Patient has been doing well with conservative management. Past family, medical, social history and review of systems has been reviewed, updated and is located in the patient s chart. Examination: The patient is well appearing and in no apparent distress. Alert and oriented x3. Gait is symmetric. No significant swelling warmth or erythema of the left shoulder. Range of motion of the shoulder: Decreased in all planes with pain and crepitus. 4-5 strength of the right shoulder. Peripheral, vascular, lymphatic examination, skin, neurological, coordination, reflexes, sensation are within normal limits. Impression: Degenerative rotator cuff disease of the left shoulder. Plan: Reviewed diagnosis with the patient today in the office. Discussed role of conservative management. Reviewed home exercise program. Activity modification discussed. P.r.n. Tylenol or NSAIDs can be used. Discussed the role of injection therapies. Injected the subacromial space of the left shoulder. Follow up p.r.n. Kurt Mix PA-C [address], [place], [address], [facility] 08/18/2024 08:32:51 12/06/2024 text/html I am seeing the patient today under the supervision of Dr. Chatterjee who was available but who did not see the patient. HPI: Patient returns for follow-up of left shoulder pain. 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 Patient has been doing well with conservative management. Past family, medical, social history and review of systems has been reviewed, updated and is located in the patient s chart. Examination: The patient is well [...] shoulder. Follow up p.r.n. Kurt Mix PA-C [address], [place], [address], [facility] 12/06/2024 08:49:04 12/13/2024 text/html ROS as noted in the HPI I am seeing this patient under the supervision of Dr. Kelly who was available but who did not see the patient Chief Complaint: Bilateral hand pain HPI: 89-year-old kihzq-ltbl-bdrjgqiw female presents today with a 2-month history of catching and locking episodes of the long and ring finger of the left hand. She notes associated swelling. They have worsened over the past month. She has not had any significant treatment of this yet. Cricket Tapia PA-C [address], [place], [address], [facility] 12/13/2024 09:18:48 02/28/2025 text/html I am seeing the patient today under the supervision of dr Kelly who was available but who did not see the patient. 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 Patient did well after her cortisone injection. Her fingers are no longer stuck. She has been working on digital range of motion exercises. Past family, medical, social history and review of systems has been reviewed, updated and signed by me and is located in the patient s chart. Examination: Alert and oriented 3. No acute distress. Nonantalgic gait Right middle and ring finger reveals no soft tissue swelling, erythema, or ecchymosis. She is not tender nodule over the A1 yobani region, no audible click or snap noted. Has decent range of motion. Sensation is intact, 1+ capillary refill, 2+ radial pulse. Examination of the left hand shows no warmth, erythema, swelling, or effusion. Full ROM, 5/5 strength all muscle groups and no evidence of instability. X-rays ordered, obtained and reviewed at [facility] none Impression/Plan:Jonny almonte and situation discussed with patient. Patient is doing well since her cortisone injection by Mr. Tapia. Activities as tolerated. She will follow-up on a as needed basis Shay Wray PA-C [address] [place] [address] [address], [place], [address], [facility] 02/28/2025 13:49:32 03/07/2025 text/html I am seeing the patient today under the supervision of Dr. Chatterjee who was available but who did not see the patient. HPI: Patient returns for follow-up of left shoulder pain. 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 Patient has been doing well with conservative management. Past family, medical, social history and review of systems has been reviewed, updated and is located in the patient s chart. Examination: The patient is well [...] shoulder. Follow up p.r.n. Kurt Mix PA-C [address] [facility] [address], [place], [address], [facility] 03/07/2025 08:13:51 OBGyn Episode No OBEpisode recorded.
--- OUTSIDE RECORDS SUMMARY | 2025-04-19 07:58 | XMS_ITS | Clinical Summary ---
Author Organization [facility] Address [address] [place] [address] Phone Care Team Providers Care Research Laboratory Specialist Name Role Phone Chris Madsen MD Primary Care Provider [phone] Allergies No known active allergies Social History [...] Insurance [place] PART A & [place] [id number] [facility] MEDICARE SUPPLEMENT MEDICARE PART A & B [facility] [place] [employer] [facility] MEDICARE SUPPLEMENT MEDICARE PART A & B [facility] [place] FOR LIFE MEDICARE SUPPLEMENT MEDICARE PART A & B [facility] [place] FOR [facility] MEDICARE SUPPLEMENT MEDICARE PART A & B [facility] [place] FOR [facility] MEDICARE SUPPLEMENT MEDICARE PART A & B [facility] [place] [facility] MEDICARE SUPPLEMENT MEDICARE PART A & B [employer] MEDICARE SUPPLEMENT MEDICARE PART A & B [employer] MEDICARE SUPPLEMENT MEDICARE PART A & B [facility] [place] FOR LIFE MEDICARE SUPPLEMENT Care Teams Research Laboratory Specialist Relationship Specialty Start Date End Date Chris Madsen MD PCP - General Internal Medicine 07/03/14 Additional Source Comments The information contained in this document represents components of the legal health record. It is not the complete legal health record.[facility]
--- NOTE | 2025-04-25 14:19 | HO.ANESPROP2 ---
Documented by User: Natalia Villegsa NP 04/25/25 14:23 HPI - Anesthesia Eval Consult details Narrative: 89 yr old female for left Cystoscopy & Stent Removal s/p cystoscopy with GMA, LMA 4 on 04/05/25 Follows [facility] Cardiology for CAD, NSTEMI, s/p LAD stenting 10/05/2024 at [facility], HCM (also eval'd at HCM clinic notes mild outflow obstruction). Optimized per workload, but high risk - ok to hold plavix, but asa should not be stopped Last office visit 01/2025. Per office visit note: 10/23/2024: She is here for follow-up. She was sent to the he clinic for further assessment for dynamic LVOT obstruction. She underwent testing there which did not reveal significant gradient across the left ventricular outflow tract. She also had MRI performed we did not show any significant scar in the LAD territory. She underwent cardiac catheterization where severe LAD stenosis was noted and she underwent drug-eluting stent to the LAD. Since then she had chest discomfort has improved significantly. She continues to get some fatigue with activities. She is taking fosfomycin and has been doing well with that without any recent UTIs. 02/07/2025: She is here for follow-up. She has been on chronic suppression with fosfomycin but had breakthrough UTI and has been receiving antibiotic as per the daughter for the last couple of months. She has not been feeling energetic and gets tired easily. She is saying that she is able to do recumbent bike add cardiac rehabilitation but when she starts to walk she gets chest discomfort and shortness of breath. She said post PCI to LAD her symptoms improved significantly but with the recent infections she started feeling the above symptoms. No dizziness or syncope. No obvious bleeding. She is currently getting nitrofurantoin. 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 [facility] Active Problems Active Problems: All Active Problems S/P coronary angioplasty (Acute) Ischemic cardiomyopathy (Acute) Staghorn calculus (Acute) Recurrent urinary tract infection (Acute) Acute UTI (Acute) Acute hypoxemic respiratory failure (Acute) Acute exacerbation of congestive heart failure (Acute) Community acquired pneumonia (Acute) Left bundle branch block (Acute) Dynamic left ventricular outflow obstruction (Acute) Past Medical History Medical History Dynamic left ventricular outflow obstruction Non-ST elevation DC (NSTEMI) NSTEMI (non-ST elevated myocardial infarction) Chronic diastolic heart failure Hyperlipidemia Hypertension Left bundle branch block Urge incontinence SEBASTIAN on CPAP Fibromyalgia Chronic polyneuropathy History of melanoma Asthma Diastolic dysfunction Surgical History Surgical History Hx of cystoscopy History of coronary artery stent placement Hx of cardiac cath Social History Social History Household Members: Children Housing: House Are you a primary home health care coordinator to a significant other at home: No Do you presently have visiting nurse or other home services: No Alcohol intake: former Patient Tobacco Use Status: Never used Tobacco Have you been hit, kicked, punched, or otherwise hurt by someone within the past year? If so, by whom?: No Are you DNR?: No Advance Directives: Yes Advance Directives on File: Yes Advance Directives Date on File: 12/27/23 service: No Meds Allergies Allergy/AdvReac Type Severity Reaction Status Date / Time hydroxyzine Allergy Hives Verified 04/09/25 10:40 imipramine Allergy Hives Verified 04/09/25 10:40 Home Medications ?Medication ?Instructions ?Recorded ?Confirmed ?Last Taken ?Type vit C 250 mg-vit E 90 mg-zinc 40 1 tab PO BID@0900,1800 12/27/23 04/26/25 04/08/25 History mg-copper 1 ex-otwwkq-fpcycf capsule (PreserVision AREDS-2) atorvastatin 40 mg tablet 40 mg PO DAILY 02/29/24 04/26/25 04/30/25 History magnesium citrate 100 mg tablet 100 mg PO BID@0900,1800 03/03/24 04/26/25 04/08/25 History gabapentin 300 mg capsule 300 mg PO DAILY@1800 07/17/24 04/26/25 04/08/25 History Lactobacillus 25 billion 1 cap PO DAILY 10/23/24 04/26/25 04/08/25 History cell-Bifido 25 billion legs-EMS-uwlyz capsule aspirin 81 mg tablet,delayed 81 mg PO DAILY 05/05/25 11/06/25 11/02/25 History release (Adult Low Dose Aspirin) cholecalciferol (vitamin D3) 25 25 mcg PO DAILY 10/23/24 04/26/25 04/08/25 History mcg (1,000 unit) capsule metoprolol tartrate 25 mg tablet 12.5 mg PO BID@0900,1800 04/09/25 04/26/25 04/30/25 History Exam Height,Weight and Vital Signs: Height 5 ft 3 in Weight 72.575 kg Pertinent Lab Results Pertinent Lab Results: Laboratory Tests 04/09/25 10:43 WBC 5.4 RBC 2.98 L Hgb 8.5 L Hct 28.0 L Plt Count 155 L D Sodium 146 H Potassium 4.2 D Chloride 114 H BUN 39 H Creatinine 1.10 Narrative Narrative: [facility] 09/2024 ECHO 08/2024 EKG 10/2024 Details: Sinus bradycardia 56 beats per minute left bundle-branch block, QTC 445 milliseconds. ECHO 06/2024 Conclusions: - 1. Mildly reduced LV ejection fraction 45-50 % with elevated filling pressures with dynamic LVOT obstruction with severe obstruction with Valsalva with moderate asymmetric septal hypertrophy 2. Moderately dilated left atrium 3. Calcific aortic and mitral valve changes noted with mild-to moderate mitral regurgitation 4. Normal RV systolic pressure 5. No gross pericardial effusion Assessment and Plan Assessment Anesthesia Assessment: Chart Reviewed Documented by User: Tung Aceves MD 04/30/25 11:09 [facility] Past Medical History Medical History Dynamic left ventricular outflow obstruction Non-ST elevation DC (NSTEMI) NSTEMI (non-ST elevated myocardial infarction) Chronic diastolic heart failure Hyperlipidemia Hypertension Left bundle branch block Urge incontinence SEBASTIAN on CPAP Fibromyalgia Chronic polyneuropathy History of melanoma Asthma Diastolic dysfunction Family History Family history of problems with anesthesia: No Surgical History Surgical History Hx of cystoscopy History of coronary artery stent placement Hx of cardiac cath History of Problems with Anesthesia: No Social History Social History Household Members: Children Housing: House Are you a primary home health care coordinator to a significant other at home: No Do you presently have visiting nurse or other home services: No Alcohol intake: former Patient Tobacco Use Status: Never used Tobacco Have you been hit, kicked, punched, or otherwise hurt by someone within the past year? If so, by whom?: No Are you DNR?: No Advance Directives: Yes Advance Directives on File: Yes Advance Directives Date on File: 12/27/23 service: No Meds Allergies Allergy/AdvReac Type Severity Reaction Status Date / Time hydroxyzine Allergy Hives Verified 04/09/25 10:40 imipramine Allergy Hives Verified 04/09/25 10:40 Home Medications ?Medication ?Instructions ?Recorded ?Confirmed ?Last Taken ?Type vit C 250 mg-vit E 90 mg-zinc 40 1 tab PO BID@0900,1800 12/27/23 04/26/25 04/08/25 History mg-copper 1 or-lyfunk-zpibte capsule (PreserVision AREDS-2) atorvastatin 40 mg tablet 40 mg PO DAILY 02/29/24 04/26/25 04/30/25 History magnesium citrate 100 mg tablet 100 mg PO BID@0900,1800 03/03/24 04/26/25 04/08/25 History gabapentin 300 mg capsule 300 mg PO DAILY@1800 07/17/24 04/26/25 04/08/25 History Lactobacillus 25 billion 1 cap PO DAILY 10/23/24 04/26/25 04/08/25 History cell-Bifido 25 billion njzi-RIE-hxqde capsule aspirin 81 mg tablet,delayed 81 mg PO DAILY 10/23/24 04/26/25 04/22/25 History release (Adult Low Dose Aspirin) cholecalciferol (vitamin D3) 25 25 mcg PO DAILY 10/23/24 04/26/25 04/08/25 History mcg (1,000 unit) capsule metoprolol tartrate 25 mg tablet 12.5 mg PO BID@0900,1800 04/09/25 04/26/25 04/30/25 History Exam Exam Date and Time: 04/30/2025 Airway Mallampati Class: II TM Dist: >3cm Neck ROM: Full Heart: rrr holosystolic murmur Lungs: ctab vesicular Assessment and Plan Assessment Anesthesia Assessment: Anesthesia Plan Discussed and PAT Visit Final Anesthetic Review Family History of Problems with Anesthesia: No History of Problems with Anesthesia: No NPO: Yes ASA Class: III Final Preanesthetic Review: No Changes in Pt Med Stat, Meds/Allgs Chart Reviewed, Consent Obtained/Reviewed and Anes Risks/Benef Reviewed Patient Risk: Intermediate Procedure Risk: Low Anesthetic Plan Anesthetic Plan: GA Disposition: Standard PACU
[2025-04-26 13:04] VITALS: BMI 29.0
[2025-04-30] VITALS (7 sets, daily range): BP systolic 124–152; BP diastolic 57–85; PULSE 59–69; RESP 12–18; TEMP 36.2–37; O2SAT 96–100; BMI 28.7
--- NOTE | ~2025-04-30 | FL_ITS ---
EXAMINATION: FLUOROSCOPY GUIDANCE FOR NEEDLE PLACEMENT CLINICAL INFORMATION: Cysto special COMPARISON: Previous CT of the abdomen and pelvis March 03, 2024 and left retrograde exam March 2025 TECHNIQUE: Urostomy guidance provided for left retrograde exam and stent placement. See procedure note for detailed findings. FINDINGS: Initial image demonstrates mild left hydronephrosis. Final images demonstrate a double-J internal ureteral stent with proximal pigtail projecting over the left renal collecting system and distal pigtail projecting over the bladder. FLUOROSCOPY TIME: 26 seconds area for submitted images. DOSE AREA PRODUCT: 3.3 Gy per centimeter squared. FL/FL guidance in OR IMPRESSION: Fluoroscopy guidance for left retrograde exam. Electronically signed by: Ruchi Siegel MD 05/01/2025 11:52 AM EST
[2025-04-30] MEDS: Lactated Ringers 1,000 ML 50 ML IVCONT (10:55)
--- NOTE | 2025-04-30 11:13 | MHC.SHP ---
Pre-Procedural Eval Section A - 24 Hr Update-Section A only Date of Service: 04/30/25 The patient is an INPATIENT: No Changes since office visit: No Cold of Flu in the past 2 weeks, No New Medical Problems, No Changes in Medication and No Patient answered all questions The patient has been examined within 24 hours of the surgical procedure. The History & Physical has been completed within 30 days and I have reviewed it.: No Section B - Complete if H&P > 30 days Chief Complaint: Calculus of kidney Details of Present Illness: Underwent ureteroscopy with stone procedure 3 weeks ago. At that point was found to have an infected stone. Here today for cystoscopy, removal of stent and check ureteroscopy to make sure there is no more stone debris. Relevant Social History: None Present Medications: see Short Stay Collaborative assessment Medical History: No relevant PMH History of Previous Operations: Relevant previous surgery/procedure and date(s) Allergies: Allergies Allergy/AdvReac Type Severity Reaction Status Date / Time hydroxyzine Allergy Hives Verified 04/09/25 10:40 imipramine Allergy Hives Verified 04/09/25 10:40 Review of Systems Sugical H&P ROS: Negative: Constitution, Cardiovascular, Respiratory, Neurological, Psychiatric, Hem-Onc, Allergic/Immunologic, Gastrointestinal, Genitourinary, Musculoskeletal, Integumentary, Endocrine and Eyes/Ears/Nose/Throat Exam Surgical H&P Exam: Normal: HEENT, Normal: Heart, Normal: Lungs, Normal: Extremities, Normal: Abdomen, Normal: Skin and Normal: Neurological Plan Diagnosis/Plan: Unchanged (Cystoscopy, left stent removal, left retrograde, left ureteroscopy) I have reviewed the history and physical and performed a pertinent physical examination on my patient. No changes have occurred unless specified. Time Spent With Patient Time: Total time managing care of this patient today ____ minutes.
--- NOTE | 2025-04-30 12:23 | W.PM.OPN ---
Operative Note Operative Note Date of Service: 04/30/25 Narrative: PreOperative Diagnosis: Left indwelling ureteric catheter, residual left renal stones Post Operative Diagnosis: See above Procedure: - cystoscopy, left stent removal - left retrograde - left dilatation of ureteric orifice under fluoroscopy - left ureteroscopy, laser lithotripsy, stone basketing with steerable vacuum access sheath - left stent placement Surgeon: Dr Allen Lieberman Anesthesia: General Indications for procedure: Underwent removal of to 1.4 cm stones 3 weeks ago. Here for removal of left stent and double check to make sure residual stone burden has been cleared. Stone burden had been in upper pole with a long calyceal neck the anatomy of which suggested clearance of stone fragments would be difficult. Procedure: After informed consent was verified patient was brought to the operating placed in supine position. Anesthesia was administered per protocol. Patient was placed in modified dorsal lithotomy position and prepped and draped in a sterile fashion. Safety pause time-out and side of surgery confirmed. Antibiotics confirmed. A 22 Kenyan cystoscope was inserted per urethra. The urethra and bladder were normal in their entirety. Both ureteric orifices were in normal position. The left stent was seen emerging from the left ureteric orifice. The stent was grasped and removed. The left ureteric orifice was cannulated and a retrograde examination was performed. No clear filling defects seen within the left kidney. A Sensor guidewire was placed up to the level of the renal pelvis under fluoroscopy. The rigid cystoscope was removed and the inner cannula of ureteric access sheath was used under fluoroscopy to dilate the ureteric orifice. The steerable vacuum ureteric access sheath was placed and the inner cannula with access wire removed. The digital flexible ureteral scope was placed. Residual stone fragmentation was seen within the upper pole. Using the steerable vacuum ureteric access sheath this was directed towards the stone debris. The holmium laser was used with settings of 0.2 power and 25 hertz. Residual stone fragments were broken up in using a ZeroTip basket fragments were removed for collection. At the completion of the stone procedure a Sensor wire was placed back into the renal pelvis. A decision was made to replace the stent as there appeared to be a grade 2/3 mucosal tear secondary to the access sheath that was seen. A 7 Kenyan by 24 cm double-J stent was placed into the renal pelvis and bladder under a combination of fluoroscopy and direct visualization. The symphisis pubis was used as a radiographic marker to release the stent and good coil was seen within the bladder confirming position. Proximal positioning of the stent was confirmed using fluoroscopy. The bladder was emptied. The patient tolerated the procedure well and was extubated in the operating room, and transferred in stable condition to the recovery area. Pathology: Stones Drains: Stent as above [facility] code [id number] describes cystourethroscopy, with ureteroscopy and/or pyeloscopy, with lithotripsy, and ureteral catheterization for steerable vacuum aspiration of the kidney, collecting system, ureter, bladder, and urethra if applicable (must use a steerable ureteral catheter).
--- NOTE | 2025-04-30 14:29 | PC.NURSE ---
THIS RN GAVE REPORT TO PATIENT'S DAUGHTER, AMIRA, VIA PHONE PRIOR TO PATIENT LEAVING.
== END 2025-04-30 14:17 | disposition home or self-care (01) ==
PROVIDERS: PCP Internal Medicine; Visit Provider Urology
PROC: (CPT 52310; principal; 2025-04-30 13:20)
DX: N20.0 Calculus of kidney (principal); Z87.442 Personal history of urinary calculi; Z96.0 Presence of urogenital implants; Z87.440 Personal history of urinary (tract) infections; Z86.19 Personal history of other infectious and parasitic diseases; N39.41 Urge incontinence; I11.0 Hypertensive heart disease with heart failure; I50.32 Chronic diastolic (congestive) heart failure; Z95.5 Presence of coronary angioplasty implant and graft; I25.2 Old myocardial infarction; I44.7 Left bundle-branch block, unspecified; E78.5 Hyperlipidemia, unspecified; G62.9 Polyneuropathy, unspecified; M79.7 Fibromyalgia; G47.33 Obstructive sleep apnea (adult) (pediatric); Z99.89 Dependence on other enabling machines and devices; Z79.899 Other long term (current) drug therapy; Z79.82 Long term (current) use of aspirin; Z88.8 Allergy status to other drugs, medicaments and biological substances; Z85.820 Personal history of malignant melanoma of skin
CPT/HCPCS: 52356; 82365; 88300; C1758; C1769; C1894; C2617; J0131; J1100; J1956; J2003; J2405; J2704; J3010; Q9967

== ENCOUNTER → 2025-04-30 10:15 | Outpatient (BNV) | payer MEDICARE, OTHER, SELFPAY | PROVIDERS: PCP Internal Medicine; Visit Provider Urology | DX: N20.0 Calculus of kidney (principal); T83.091A Other mechanical complication of indwelling urethral catheter, initial encounter | CPT/HCPCS: 52356; 74420 ==

== ENCOUNTER → 2025-05-11 11:12 | Outpatient (BNV) | payer MEDICARE, OTHER, SELFPAY | PROVIDERS: Emergency Provider Emergency Medicine; PCP Internal Medicine; Visit Provider Internal Medicine | DX: I44.7 Left bundle-branch block, unspecified (principal) | CPT/HCPCS: 93010 ==

== ENCOUNTER → 2025-05-11 11:13 | Outpatient (BNV) | payer MEDICARE, OTHER, SELFPAY | PROVIDERS: Emergency Provider Emergency Medicine; PCP Internal Medicine; Visit Provider Radiology Diagnostic Radiology | DX: N20.0 Calculus of kidney (principal); K42.9 Umbilical hernia without obstruction or gangrene; K57.30 Diverticulosis of large intestine without perforation or abscess without bleeding; R06.09 Other forms of dyspnea | CPT/HCPCS: 71046 ==

== ENCOUNTER 2025-05-23 14:38 | Outpatient (AMB) | payer MEDICARE, OTHER, SELFPAY ==
--- NOTE | 2025-05-23 14:58 | MHC.OFFVIS ---
Vital Signs 05/23/25 14:59 Height 5 ft 3 in Weight 171 lb 15.369 oz BMI 30.5 BP 100/60 Blood Pressure Location Lt brachial Position Sitting Pulse 70 Pulse Source Monitor Intake Visit Reasons: 3 mth f/up Intake Note: 3 mth f/up Tobacco Drier Operator Required: No Accompanied by: Daughter Allergies hydroxyzine Allergy (Verified 05/11/25 10:51) Hives imipramine Allergy (Verified 05/11/25 10:51) Hives Medication List - Last Reconciled 05/23/[address] MD aspirin (Adult Low Dose Aspirin) 81 mg PO DAILY atorvastatin 40 mg PO DAILY cholecalciferol (vitamin D3) 25 mcg PO DAILY clopidogrel 75 mg PO DAILY gabapentin 300 mg PO DAILY@1800 magnesium citrate 100 mg PO BID@0900,1800 metoprolol tartrate 12.5 mg PO BID@0900,1800 omeprazole 40 mg PO BID@0630,1630 vit C,N-Av-fouhl-lutein-zeaxan 250-90-40-1 mg (PreserVision AREDS-2) 1 tab PO BID@0900,1800 HPI Comments Details: 89-year-old female who is here for follow-up. She was seen in the hospital when she presented with pneumonia and congestive heart failure. Echocardiography showed systolic anterior motion of mitral valve and left ventricular outflow tract obstruction and [id number] mitral valve regurgitation. She was clinically volume overloaded and in heart failure. She was diuresed and her vasodilators were stopped. She improved and was discharged home. She did well after that till recently when she started feeling dizzy and fatigued. She is feeling little spaced out and has been getting lightheaded feeling. Denying any significant shortness of breath but continues to get some chest discomfort which he has a pressure-like feeling. It appears these symptoms are worse when she has dizziness and LVOT obstruction. She is saying these episodes are prolonged but on discussing she is saying these last for 15-20 minutes with some confusion. I have explained to the patient and daughter that this will need further workup. Her lisinopril and amlodipine were discontinued while she was in the hospital. 04/13/2024: She is here for follow-up after recent admission to the hospital. She apparently had urinary tract infection and presented with syncope. She was treated with antibiotics and discharged home and then presented again with significant confusion and hypotension. She was fluid resuscitated and blood workup showed evidence of myocardial infarction. Echocardiography showed EF 30% with LAD territory wall motion abnormality. Her HS trop were as high as 60,000. She was conservatively treated and subsequently was discharged home. She is taking Plavix 75 mg daily and metoprolol tartrate 12.5 mg twice a day. She is on Lasix 40 mg daily. Clinically she is euvolemic. She is saying that she was feeling fine but as a few days ago she has been feeling very lousy and tired. She recently had urinalysis which is showing infection and she was called by urologist that she needs to start antibiotics which she is picking up today. 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 The daughter and the patient are here to discuss about that too. 07/17/2024: Elvia returns for follow-up. On last visit she was discussing about urological surgery for staghorn calculus. I told her that she is moderate to high-risk for surgery. I also told her that given dynamic LVOT obstruction the situation can be unpredictable at times with more obstruction happening with anesthesia. She was subsequently referred to ID to see if chronic suppression with antibiotics is a possibility but it appears she was not started on any antibiotics. She is currently taking fosfomycin through urology and she has been feeling better. She is more awake and interactive. She is still has some chest discomfort and shortness of breath with minimal exertion. Echocardiography performed on July 14 2024 showing EF 45-50% with elevated filling pressures with dynamic LVOT obstruction with severe obstruction with Valsalva with moderate asymmetric septal hypertrophy. LVOT gradient at rest 21 mm Hg which increases to 130 mm Hg with Valsalva. Anteroseptal wall and apex are hypokinetic. 10/23/2024: She is here for follow-up. She was sent to the he clinic for further assessment for dynamic LVOT obstruction. She underwent testing there which did not reveal significant gradient across the left ventricular outflow tract. She also had MRI performed we did not show any significant scar in the LAD territory. She underwent cardiac catheterization where severe LAD stenosis was noted and she underwent drug-eluting stent to the LAD. Since then she had chest discomfort has improved significantly. She continues to get some fatigue with activities. She is taking fosfomycin and has been doing well with that without any recent UTIs. 02/07/2025: She is here for follow-up. She has been on chronic suppression with fosfomycin but had breakthrough UTI and has been receiving antibiotic as per the daughter for the last couple of months. She has not been feeling energetic and gets tired easily. She is saying that she is able to do recumbent bike add cardiac rehabilitation but when she starts to walk she gets chest discomfort and shortness of breath. She said post PCI to LAD her symptoms improved significantly but with the recent infections she started feeling the above symptoms. No dizziness or syncope. No obvious bleeding. She is currently getting nitrofurantoin. 05/23/2025: She is here for follow-up. She underwent urological surgery 1st staghorn calculi and recurrent UTIs. She currently has a ureteric stent in place. She is following with Dr. Lieberman. She is complaining of significant fatigue, shortness of breath and exertional chest discomfort. She is anemic with hemoglobin 7.9. Denying any bleeding currently. She is on aspirin and Plavix and had PCI done in September 2024 at [facility]. 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 Fibromyalgia Chronic polyneuropathy History of melanoma Asthma Diastolic dysfunction Surgical History Hx of cystoscopy History of coronary artery stent placement Hx of cardiac cath Social History Household Members: Children Housing: House Are you a primary assistant child care teacher to a significant other at home: No Do you presently have visiting nurse or other home services: No Alcohol intake: former Patient Tobacco Use Status: Never used Tobacco Advance Directives Date on File: 12/27/23 service: No Review of Systems Const Denies chills, Denies fatigue, Denies fever(s), Denies frequent falls, Denies weakness, Denies weight gain and Denies weight loss ENT Denies dizziness Card Reports chest pain, Reports chest pain with activity, Denies leg edema, Denies lightheadedness, Denies palpitations, Reports dyspnea and Reports dyspnea on exertion Resp Denies cough, Reports dyspnea and Reports dyspnea on exertion GI Denies hematochezia Musc Denies abnormal gait, Denies muscle weakness, Denies numbness, Denies radiating pain into limb and Denies tingling Neuro Denies abnormal gait, Denies dizziness, Denies frequent falls, Denies numbness, Denies tingling and Denies weakness Endo Denies fatigue and Denies palpitations Physical Exam Vital Signs: Last Vital Signs Pulse 70 05/23/25 14:59 BP 100/60 05/23/25 14:59 BMI result Body Mass Index 30.5 GENERAL APPEARANCE: in no acute distress. Ill-appearing. Fatigued. NECK: no carotid bruit, no jugular venous distention. SKIN: no suspicious lesions, warm and dry. HEART: Systolic murmur left parasternal border, regular rate and rhythm. LUNGS: clear to auscultation bilaterally. ABDOMEN: soft, nontender. EXTREMITIES: no edema. PERIPHERAL PULSES: equal. NEUROLOGIC: No gross deficits, AAO X 3 Office Procedures EKG Details: Sinus rhythm 70 beats per minute, right axis deviation, left bundle-branch block, QTC 475 milliseconds, QRS 144 milliseconds. [id number], Complete Assessment & Plan Assessment & Plan (1) Ischemic cardiomyopathy: Code(s): I25.5 - Ischemic cardiomyopathy Category: Medical (2) Dynamic left ventricular outflow obstruction: Code(s): I51.89 - Other ill-defined heart diseases Category: Medical (3) Left bundle branch block: Code(s): I44.7 - Left bundle-branch block, unspecified Category: Medical Plan 89-year-old female who is here for follow-up. She has background history of recurrent UTI and dynamic LVOT obstruction. Her peak gradient across the left ventricular outflow tract with Valsalva was 130 mm Hg during 1 of her hospitalizations. She had NSTEMI with LAD territory wall motion abnormality in the setting of sepsis and hypotension. She was conservatively treated at that time. Subsequently referred to [facility] and underwent further testing there including diagnostic cardiac catheterization. She was found to have severe LAD stenosis which was stented. By their assessment she did not have significant left ventricular outflow tract obstruction. She is presenting now with fatigue, shortness of breath and chest tightness with activities. EKGs showing left bundle-branch block as before. She has been on dual antiplatelet therapy. She is anemic. I think a lot of her symptoms are related to anemia and I have advised her to get 1 unit of blood transfusion. We will send her to the emergency department and do basic blood workup including urinalysis, urine culture, troponin and BNP level. She will get 1 unit of blood with 20 mg of Lasix. If she is found to have urinary tract infection then she may need antibiotics. She has had multiple urinary tract infections and gets quite sick due to dynamic left ventricular outflow tract obstruction. Clinically not in heart failure. We are sending her to the emergency department. I have spoken to the ER physician about her. Thank you for allowing me to participate in the care of your patient. Please feel free to contact me if you have any questions. Coding Level of Care Code Est Pt Level 4 (57756) Diagnoses Ischemic cardiomyopathy I25.5 Dynamic left ventricular outflow obstruction I51.89 Left bundle branch block I44.7 CPT Codes EKG - CPT: 36459-[id number], Complete ([id number])
[2025-05-23 14:59] VITALS: BP 100/60; PULSE 70; BMI 30.5
--- OUTSIDE RECORDS SUMMARY | 2025-05-23 17:33 | XMS_ITS | Clinical Summary ---
Author Organization [facility] Address [address] [place] [address] Phone Care Team Providers Care Medical Records Auditor Name Role Phone Chris Madsen MD Primary Care Provider [phone] Allergies No known active allergies Social History [...] [place] [id number] [facility] MEDICARE SUPPLEMENT MEDICARE PART A & B [facility] [facility] MEDICARE SUPPLEMENT MEDICARE PART A & B [facility] MEDICARE SUPPLEMENT MEDICARE PART A & B [facility] MEDICARE SUPPLEMENT MEDICARE PART A & B [facility] MEDICARE SUPPLEMENT MEDICARE PART A & B [facility] MEDICARE SUPPLEMENT MEDICARE PART A & B [facility] MEDICARE SUPPLEMENT MEDICARE PART A & B [place] MEDICARE SUPPLEMENT MEDICARE PART A & B [facility] MEDICARE SUPPLEMENT Care Teams Medical Records Auditor Relationship Specialty Start Date End Date Chris Madsen MD PCP - General Internal Medicine 07/03/14 Additional Source Comments The information contained in this document represents components of the legal health record. It is not the complete legal health record.[facility]
--- OUTSIDE RECORDS SUMMARY | 2025-05-23 17:33 | XMS_ITS | Continuity of Care Document ---
Author Organization [facility], [facility] 1st Floor Address [address] [place] [address] Care Team Providers Care Pants Cutter Name Role Phone REJI DALTON Primary Care Provider Assessment No assessment recorded. Plan of Treatment Reminders Order Date Submit Date Provider Last Modified By Organization Details Last Modified Time Details Appointments INJECTION ONLY 5 2024 08:25A José Manuel Mix PA-C Not available Not available Not available Lab None recorded. Referral None recorded. Procedures None recorded. Surgeries None recorded. Imaging None recorded. Medication Orders None recorded. Patient TargetsNo targets recorded. Patient InstructionsNo instructions recorded. Reason for Referral None Reported. 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 629494602228 104 Active 2016 Problem Code: M75.42; Problem Code Type: ICD-10; Status: 'A'; Not Available [facility] 4 11:58:04 Impingeme nt syndrome of right shoulder region 310770828568 102 Active 2016 Problem Code: M75.41; Problem Code Type: ICD-10; Status: 'A'; Not Available [facility] 4 11:58:04 Pain of bilateral hands 216868231779 19971 Active 2024 Cricket Tapia PA-C [address], [place], [address] , [facility], [facility] 08:10:42 Triggerin g of digit 503465776 Active 2024 Cricket Tapia PA-C [address], [place], [address] , [facility], [facility] 5 09:10:32 Problem Notes None recorded. Procedures Surgical History Date Name Laterality Status Provider Name and Address Organization Details Recorded Time 5 Sports Shoulder 4&1 completed Kurt Mix PA-C [address], [place], [address], [facility], [facility] 03/06/2025 10:31:33 5 Tendon Sheath Kenalog Injection, L/R completed Cricket Tapia PA-C [address], [place], [address], [facility], [facility] 12/13/2024 09:09:44 5 Sports Shoulder 4&1 completed Kurt Mix PA-C [address], [place], [address], [facility], [facility] 12/06/2024 08:48:30 5 Sports Shoulder 4&1 completed Kurt Mix PA-C [address], [place], [address], [facility], [facility] 08/17/2024 14:38:08 4 Sports Shoulder 4&1 completed Kurt Mix PA-C [address], [place], [address], [facility], [facility] 05/12/2024 08:49:12 4 Sports Shoulder 4&1 completed Kurt Mix PA-C [address], [place], [address], [facility], [facility] 02/10/2024 10:25:11 4 Sports Shoulder 4&1 completed Kurt Mix PA-C [address], [place], [address], [facility], [facility] 09/16/2023 08:59:25 Imaging Results [...] Updated DateTime 02/28/2025 160.02 cm 29.2 kg/m2 93085.74 g DEXTER CRUZ [place] - [facility] 02/28/2025 13:13:25 Social History None recorded. Functional Status None recorded. Mental Status None recorded. Family History Nothing Reported. Medical History No medical history recorded. Gynecological HistoryNo gynecological history recorded. Obstetrics History GPAL:G 0 P 0 0 0 0 Past Encounters Encounter ID Performer Location Encounter Start Date Encounter Closed Date Diagnosis/Indication Diagnosis SNOMED-CT Code Diagnosis ICD10 Code Diagnosis IMO Codes Diagnosis Note [id number] GEORGINA Castillo [address] [place] [address] 02/28/2025 13:05:15 03/08/2025 11:25:42 Health Concerns Section Related Observation LastModified by Organization Corrie guzman LastModified Time None Recorded Concern Status LastModified by Organization Details LastModified Time None Recorded Payers Encounter Date Sequence Insurance Name Policy Number Policy Medeiros Covered Member ID Medeiros Member ID Guarantor Name 02/28/2025 2 FOR LIFE () Elvia Winkler [id number] Elvia Winkler 02/28/2025 1 MEDICARE B-[place]: [facility] [employer] Elvia Winkler [id number] Elvia Winkler Notes Date Note Type Note Provider Name and Address Organization Details Recorded Time 02/28/2025 text/html I am seeing the patient [...] instability. X-rays ordered, obtained and reviewed at [facility] none Impression/Plan:Jonny almonte and situation discussed with patient. Patient is doing well since her cortisone injection by Mr. Tapia. Activities as tolerated. She will follow-up on a as needed basis Shay Wray PA-C [address], [place], [address], [facility] - [facility] 02/28/2025 13:49:32 OBGyn Episode No OBEpisode recorded.
--- OUTSIDE RECORDS SUMMARY | 2025-05-23 17:33 | XMS_ITS | Data Portability ---
Author Organization NATHANIEL Evaristo Dominguez [facility], [facility] Address [address] [place] [address] Care Team Providers Care Grinder And Plater Name Role Phone REJI DALTON Primary Care Provider [phone] Assessment Encounter Date Assessment Date Assessment LastModified by Organization Details LastModified Time 12/13/2024 12/13/2024 89-year-old lbtmz-nwlx-plju nant female presents today with a 2-month [...] room 119 3V zee hands 2024 025 [facility], [address], [facility] [address], [place], [address], 12/26/2024 11:42:04 Medication Orders None recorded. Patient TargetsNo targets recorded. Patient InstructionsNo instructions recorded. Reason for Referral None Reported. Results Created Date Observation Date Name Description Value Unit Range Abnormal Flag Note LastModifiedBy Organization Detail LastModifiedTime 12/14/1912/13/2024 XR, hand, 3 or more view http:/ [email or web address] ?Encry pted=s hAaTro YD8dLq bEUv6g %2BXZw aYqtaq 0bqfl% 2Fg9IQ a4ajBk vP9nXo QUaueC m3YtLR FvZlgJ JJ8mAn HZtai3 0z8204 AC0Kla HSFUaq jKiQtr MwF INTERFACE [facility] Office [address] [facility] [address], [place], [address], 12/13/2024 08:50:57 12/14/1912/13/2024 XR, hand, 3 or more view http:/ [email or web address] ?Encry pted=s hAaTro YD8dLq bEUv6g %2BXZw aYqtaq 0bqfl% 2Fg9IQ a4ajBk vP9nXo QUaueC m3YtLR FvZlgJ JJ8mAn HZtai3 9k2249 AC0Kla HSFUaq jKiQtr MwF INTERFACE [facility] [address] [address], [place], [address], 12/13/2024 08:50:59 Result Notes Documentation Provider Name and Address Organization Details Recorded Time Xr, Hand, 3 Or More View : [email or web address]? Encrypted=mpPjKcpOU7pPxzB Uv6g%7UNVdtCbvqj9vimj%2Fg 0MNs2ouTwsF5eWxRUnirOo5Im JQYtIdfXWC5zPoGZnbk70n965 4IK0FweCGLPbtlKnAccWxT Not Available [facility] 12/13/2024 08:50: 58 Xr, Hand, 3 Or More View : [email or web address] 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 5 08:10:42 Triggerin g of digit 455161294 Active 2024 Cricket Tapia PA-C [address] [facility], [place], [address] , [facility] 5 09:10:32 Problem Notes None recorded. Procedures Surgical History Date Name Laterality Status Provider Name and Address Organization Details Recorded Time 5 Sports Shoulder 4&1 completed Kurt Mix PA-C [address] [facility], [place], [address], [facility] 03/06/2025 10:31:33 5 Tendon Sheath Kenalog Injection, L/R completed Cricket Tapia PA-C [address] [facility], [place], [address], [facility] 12/13/2024 09:09:44 5 Sports Shoulder 4&1 completed Kurt Mix PA-C [address] [facility], [place], [address], [facility] 12/06/2024 08:48:30 5 Sports Shoulder 4&1 completed Kurt Mix PA-C [address] [facility], [place], [address], [facility] 08/17/2024 14:38:08 4 Sports Shoulder 4&1 completed Kurt Mix PA-C [address] [facility], [place], [address], [facility] 05/12/2024 08:49:12 4 Sports Shoulder 4&1 completed Kurt Mix PA-C [address] [facility], [place], [address], [facility] 02/10/2024 10:25:11 4 Sports Shoulder 4&1 completed Kurt Mix PA-C [address] [facility], [place], [address], [facility] 09/16/2023 08:59:25 Imaging Results None recorded. Procedure [...] Updated DateTime 08/18/2024 160.02 cm 29.2 kg/m2 94178.74 g Kurt Mix PA-C [address], [address], [facility] 08/18/2024 08:25:02 Date Recorded Body height Body mass index (BMI) Body weight Provider Name and Address Organization Details Last Updated DateTime 12/06/2024 160.02 cm 29.2 kg/m2 28024.74 g Joann Mcclendon [facility] 12/06/2024 08:05:41 Date Recorded Body height Body mass index (BMI) Body weight Provider Name and Address Organization Details Last Updated DateTime 12/13/2024 160.02 cm 29.2 kg/m2 34530.74 g MOHINDER PHILLIP [facility] 12/13/2024 08:42:25 Date Recorded Body height Body mass index (BMI) Body weight Provider Name and Address Organization Details Last Updated DateTime 02/28/2025 160.02 cm 29.2 kg/m2 45974.74 g DEXTER CRUZ [facility] 02/28/2025 13:13:25 Date Recorded Body height Body mass index (BMI) Body weight Provider Name and Address Organization Details Last Updated DateTime 03/07/2025 160.02 cm 29.2 kg/m2 17494.74 g Joann Mcclendon [facility] 03/07/2025 08:05:34 Social History None recorded. Functional Status None recorded. Mental Status None recorded. Family History Nothing Reported. Medical History No medical history recorded. Gynecological HistoryNo gynecological history recorded. Obstetrics History GPAL:G 0 P 0 0 0 0 Past Encounters Encounter ID Performer Location Encounter Start Date Encounter Closed Date Diagnosis/Indication Diagnosis SNOMED-CT Code Diagnosis ICD10 Code Diagnosis IMO Codes Diagnosis Note [id number] Peter Maria Del Rosario, PA-C [address] [address] [place] [address] 09/16/2023 08:41:37 09/16/2023 10:55:38 Osteoarthritis of joint of left shoulder region [id number] [facility] M19.821 [id number] GEORGINA Blackmon[address] [address] [place] [address] 02/10/2024 09:45:50 02/10/2024 10:58:53 Osteoarthritis of joint of left shoulder region [id number] [facility] M19.003 [id number] GEORGINA lBackmonnice[address] [place] [address] 05/12/2024 08:07:47 06/18/2024 06:13:02 Osteoarthritis of joint of left shoulder region [id number] [facility] M19.373 [id number] Kurt Mix PA-C [facility] [place] [address] [place] [address] 08/18/2024 08:16:09 09/07/2024 15:42:43 Osteoarthritis of joint of left shoulder region [id number] [facility] M19.737 [id number] GEORGINA BlackmonA - [place] [address] [place] [address] 12/06/2024 08:02:27 12/21/2024 15:51:21 Osteoarthritis of joint of left shoulder region [id number] [facility] M19.590 [id number] Cricket Tapia PA-C [facility] [place] [address] [place] [address] 12/13/2024 08:36:03 12/26/2024 11:42:04 Pain of bilateral hands [id number] 3044646 M79.641 M79.642 07060098 Triggering of digit 2399 52826 M65.332 M65.839 [id number] Shay Wray PA-C [facility] [place] [place] [address] 02/28/2025 13:05:15 03/08/2025 11:25:42 [id number] GEORGINA [address]mon [address] [place] [address] 03/07/2025 07:52:58 03/19/2025 11:43:26 Osteoarthritis of joint of left shoulder region 8142437304 30681 M19.874 [id number] Health Concerns Section Related Observation LastModified by Organization Detai ls LastModified Time None Recorded Concern Status LastModified by Organization Details LastModified Time None Recorded Advance Directives Directive None Recorded Payers Insurance Date Sequence Insurance Name Policy Number Policy Medeiros Covered Member ID Medeiros Member ID Guarantor Name 03/19/2025 2 FOR LIFE () Elvia Winkler [id number] Elvia Winkler 03/07/2025 1 MEDICARE B-[place]: [employer] Elvia Winkler [id number] Elvia Winkler Notes Date Note Type Note [...] Mix PA-C [address], [place], [address], [facility] 08/18/2024 08:32:51 12/06/2024 text/html I am seeing [...] Follow up p.r.n. Kurt Mix PA-C [address], [place], [address], [facility] 12/06/2024 08:49:04 12/13/2024 text/html ROS as noted in the HPI I am seeing this patient under the supervision of Dr. Kelly who was available but who did not see the patient Chief Complaint: Bilateral hand pain HPI: 89-year-old xyjhy-wpub-awwwvnzc female presents today with a 2-month history of catching and locking episodes of the long and ring finger of the left hand. She notes associated swelling. They have worsened over the past month. She has not had any significant treatment of this yet. Cricket Tapia PA-C [address], [place], [address], [facility] 12/13/2024 09:18:48 02/28/2025 text/html I am seeing [...] ordered, obtained and reviewed at [facility] none Impression/Plan:Jonny almonte and situation discussed with patient. Patient is doing well since her cortisone injection by Mr. Tapia. Activities as tolerated. She will follow-up on a as needed basis Shay Wray PA-C [address] [place] [address] [address], [place], [address], [facility] 02/28/2025 13:49:32 03/07/2025 text/html I am seeing [...] Follow up p.r.n. Kurt Mix PA-C [address] [facility] [address], [place], [address], [facility] [place] 03/07/2025 08:13:51 OBGyn Episode No OBEpisode recorded.
== END 2025-05-23 15:34 | disposition home or self-care (01) ==
LOC: HO.HCS 14:38
PROVIDERS: PCP Internal Medicine; Visit Provider Internal Medicine Cardiovascular Disease
DX: I25.5 Ischemic cardiomyopathy (principal); I51.89 Other ill-defined heart diseases; I44.7 Left bundle-branch block, unspecified
CPT/HCPCS: 93010; 99214

== ENCOUNTER 2025-05-31 13:19 | Outpatient (AMB) | payer MEDICARE, OTHER, SELFPAY ==
--- NOTE | 2025-05-31 13:21 | MHC.OFFVIS ---
Intake Visit Reasons: Stent removal UA SET Intake Note: Patient is present for Cystoscopy stent removal Urology Medication: Tamsulosin (completed course ) Antibiotic Allergy:NONE Blood Thinner:Plavix Labs : Stone analysis 04/30/25 Sagger Preparer Required: No Accompanied by: Self / Same As Patient Allergies hydroxyzine Allergy (Verified 05/31/25 13:23) Hives imipramine Allergy (Verified 05/31/25 13:23) Hives HPI Comments Details: Elvia is a pleasant female. She is a patient of Dr. Sibley. 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 Large left posterior mid renal calculi 1.9 cm. Long discussion today Recommend antibiotic suppression with fosfomycin Ureteroscopy with laser lithotripsy using suction sheath Urine culture 12/27/23: E coli resistant to Bactrim Urine culture 02/28/24: E coli and Enterococcus faexalis: Resistant to Bactrim and tetracycline PFSH Medical History Dynamic left ventricular outflow obstruction Non-ST elevation MD (NSTEMI) NSTEMI (non-ST elevated myocardial infarction) Chronic diastolic heart failure Hyperlipidemia Hypertension Left bundle branch block Urge incontinence SEBASTIAN on CPAP Fibromyalgia Chronic polyneuropathy History of melanoma Asthma Diastolic dysfunction Surgical History Hx of cystoscopy History of coronary artery stent placement Hx of cardiac cath Social History Household Members: Children Housing: House Are you a primary director of health care marketing to a significant other at home: No Do you presently have visiting nurse or other home services: No Alcohol intake: former Patient Tobacco Use Status: Never used Tobacco Advance Directives Date on File: 12/27/23 service: No Review of Systems Const Denies chills and Denies fever(s) Card Reports no additional complaints and Denies syncope Resp Denies cough GI Denies abdominal pain and Denies heartburn Reports as per HPI and Denies change in libido Neuro Denies syncope Psych Denies change in libido Endo Denies change in libido Physical Exam Const General: cooperative, healthy appearing, comfortable and no acute distress Orientation/consciousness: patient oriented x3 HEENT Face and sinus: Yes normal facial exam Mouth: moist mucous membranes Neck Neck: Yes normal visual inspection, Yes full ROM and Yes trachea midline Chest Chest palpation & inspection: normal inspection of the chest Resp Effort & Inspection: normal respiratory effort, able to speak in complete sentences and no respiratory distress GI Inspection: Yes normal to inspection Back/Spine/Pelvis Cervical Spine: normal cervical lordosis Thoracic/Lumbar Spine: thoracic and lumbar spine normal to inspection Skin General skin exam: no rashes or lesions noted Neuro General: patient oriented x3, gait normal, tone normal and moves all extremities Extrem General: Yes normal to inspection and Yes capillary refill normal Office Procedures Cystoscopy Consent Discussed risk and benefit or proposed procedure with the patient. Information consent for procedure given to the patient. Discussed technical aspects, risks, benefits and alternatives in full. Addressed all of the patient's questions and concerns regarding the procedure. The patient demonstrated knowledge and understanding. They wish to proceed with this procedure. Preparation The patient was prepped in the usual manner. A trailhead construction worker was present and in the room. Genitalia was prepped with betadine solution in a sterile manner. Lidocaine Jelly 2% was placed into the urethra and 16Fr flexible Olympus cystoscope was inserted into the meatus after adequate lubrication. Procedure Consent confirmed Genitalia prepped and draped using topical antiseptic and lidocaine jelly Cystoscopy performed using a sterile disposable Urovue digital 16 Liberian cystoscope No abnormality noted of urethra during placement Indwelling stent seen within bladder emerging from left ureteric orifices The stent was grasped with a 3 prong grasper and removed without difficulty The patient tolerated the procedure well [id number] with stent removal DISPOSABLE SCOPE URO-G FLEXIBLE SCOPE Procedure code (CPT) selection complete Office Meds lidocaine HCl 2 % mucosal jelly in applicator Performing Provider: Allen Lieberman MD [facility] Administered by: Amado French LPN on 05/31/25 13:56 Dose Route Admin Location Dispensed Lot Number Expiration Date NDC Soil Scientist 10 mL intra-urethral 10 mL nitrofurantoin monohydrate/macrocrystals 100 mg capsule Performing Provider: Allen Lieberman MD Performing [facility] Administered by: Amado French LPN on 05/31/25 13:56 Dose Route Admin Location Dispensed Lot Number Expiration Date NDC Soil Scientist 100 mg PO 1 cap Results AMB Urinalysis, Automated UA Leukoctes 125 Josy/uL Last Edit by Meera Colon, [facility] on 05/31/25 14:00 UA Nitrite Negative Last Edit by Meera Colon, [facility] on 05/31/25 14:00 UA Urobilinogen 0.2 mg/dL Last Edit by Meera Colon, [facility] on 05/31/25 14:00 UA Protein 300 mg/dL Last Edit by Meera Colon, [facility] on 05/31/25 14:00 UA pH 6.0 Last Edit by Meera Colon, [facility] on 05/31/25 14:00 UA Blood 200 Louis/uL Last Edit by Meera Colon, [facility] on 05/31/25 14:00 UA Specific Truro 1.030 Last Edit by Meera Colon, [facility] on 05/31/25 14:00 UA Ketone Negative Last Edit by Meera Colon, [facility] on 05/31/25 14:00 UA Bilirubin 1 mg/dL Last Edit by Meera Colon, [facility] on 05/31/25 14:00 UA Glucose 0 mg/dL Last Edit by Meera Colon, [facility] on 05/31/25 14:00 Results Reviewed Results Reviewed: Laboratory Last Values Urine pH (Auto) 6.0 05/31/25 13:35 Specific [place]ro (Auto) 1.030 05/31/25 13:35 Urine Protein (Auto) 300 mg/dL 05/31/25 13:35 Glucose (UA)(Auto) 0 mg/dL 05/31/25 13:35 Urine Ketones (Auto) Negative 05/31/25 13:35 Urine Blood (Auto) 200 Louis/uL 05/31/25 13:35 Urine Nitrite (Auto) Negative 05/31/25 13:35 Urine Bilirubin (Auto) 1 mg/dL 05/31/25 13:35 Urine Urobilinogen (Auto) 0.2 mg/dL 05/31/25 13:35 Leukocyte Esterase (Auto) 125 Josy/uL 05/31/25 13:35 Assessment & Plan Assessment & Plan (1) Recurrent urinary tract infection: Comment: There are no prophylactic antibiotics that would be helpful Code(s): N39.0 - Urinary tract infection, site not specified Category: Medical (2) Staghorn calculus: Code(s): N20.0 - Calculus of kidney Category: Medical Plan Four-month follow-up renal ultrasound Orders: Orders AMB Urinalysis Automated Today N13.8 - Other obstructive and reflux uropathy, N40.1 - Benign prostatic hyperplasia with lower urinary tract symptoms AMB Cystoscopy Today N20.0 - Calculus of kidney Medications: New pyridoxine (vitamin B6) 50 mg PO DAILY 90 tabs 1RF 90 days N20.0 - Calculus of kidney Patient Instructions: This note is constructed using voice recognition software. While every effort has been made to ensure accuracy assembler semiconductor errors may have been included. Imaging studies, laboratory and physical exam results were discussed and reviewed in detail. No major barriers to patient understanding were identified. An opportunity to ask questions regarding the treatment plan was provided. All questions were answered. The patient expressed understanding and agreement with the above treatment plan. The patient is aware they should contact our office by phone for worsening of their current condition or the appearance of new urologic symptoms. Compliance is encouraged with any medications and followup testing that is ordered. It is a privilege to participate in the urologic care of your patient. If you have any questions or concerns regarding treatment for the above conditions, or other urologic issues, please do not hesitate to contact me. The office telephone contact is [phone]. Sincerely, Dr Allen Lieberman MD, [place] [facility] - Urology Compassionate Specialist Care for the Genitourinary System Coding Level of Care Code Est Pt Level 4 (05772) Add On Problem Visit Only Diagnoses Recurrent urinary tract infection N39.0 Staghorn calculus N20.0 CPT Codes Cystoscopy - CPT: 41801-[id number] with stent removal ([id number])
== END 2025-05-31 14:25 | disposition home or self-care (01) ==
LOC: HO.HUSH 13:20
PROVIDERS: PCP Internal Medicine; Visit Provider Urology
DX: N20.0 Calculus of kidney (principal); N39.0 Urinary tract infection, site not specified
CPT/HCPCS: 52310; 99213